=== PATIENT | female | born 1995 | race Caucasian/White ===

== ENCOUNTER 2017-04-29 17:58 | Emergency (ER) | payer BC, MEDICAID, SELFPAY ==
[2017-04-29 17:59] VITALS: BP 123/75; PULSE 78; RESP 18; TEMP 37.3; O2SAT 99; BMI 26.1
--- NOTE | 2017-04-29 18:25 | EKG12_ITS ---
Test Reason : OVERDOSE Blood Pressure : / mmHG Vent. Rate : 081 BPM Atrial Rate : 081 BPM P-R Int : 146 ms QRS Dur : 098 ms QT Int : 404 ms P-R-T Axes : 068 074 055 degrees QTc Int : 469 ms Normal sinus rhythm Normal ECG Confirmed by MICHAEL ARIAS ([id number]), food editor SRINATH MOORE ([id number]) on 05/03/2017 11:32:52 AM Referred By: TAL Confirmed By:MICHAEL ARIAS
--- NOTE | 2017-04-29 18:33 | ED.RN ---
NO OLD EKG'S IN MUSE
[2017-04-29] MEDS: Activated Charcoal 50 GM/240 ML BOT PO (18:36)
[2017-04-29 18:41] LABS: Bacteria 0 SEEN /hpf (None Seen); Mucous, Urine 0 SEEN /hpf (<or=2+); Red Blood Cells-Urine 0 SEEN /hpf (0-5)
[2017-04-29 18:50] LABS: Absolute Lymphocyte Count 1.61 X10^3/ul (0.83-4.51); Absolute Neutrophil Count 3.1 X10^3/uL (2.0-7.7); Basophil# 0.09 X10^3/uL; Basophil% 1.6 % (0-1); Eosinophil# 0.19 X10^3/uL; Eosinophils% 3.5 % (0-5); Hematocrit 37.8 % (37-47); Hemoglobin 12.2 g/dl (12.0-15.0); Lymphocyte # 1.61 X10^3/ul (4.0); Lymphocyte % 29.4 % (19-41); Mean Corp Hgb Conc 32.3 g/gl (32-36); Mean Corpuscular Hgb 29.4 pg (27.0-32.0); Mean Corpuscular Volume 91.1 fL (81-99); Mean Platelet Vol. 10.2 fl (6.2-12.0); Monocyte# 0.48 X10^3/uL; Monocyte% 8.8 % (0-10); Neutrophil # 3.09 X10^3/uL (2.7-7.7); Neutrophil % 56.5 % (47-70); Platelet Count 239 K/mm3 (150-450); RBC Distribution Width CV 12.4 % (11.6-14.6); RBC Distribution Width SD 41.3 fl (35.1-43.9); Red Blood Count 4.15 M/mm3 (4.2-5.4); White Blood Count 5.5 K/mm3 (4.4-11.0)
[2017-04-29 18:50] LABS: Color, Urine Yellow (Yellow); Glucose, Dipstick Normal (Normal); Ketone-Dipstick Negative (Negative); Leukocyte Esterase-Dipstick Negative /ul (Negative); Nitrite-Dipstick Negative (Negative); Occult Blood-Urine Negative /ul (Negative); Protein-Dipstick Negative (Negative); Urine Bilirubin Dipstick Negative (Negative); Urine Clarity Clear (Clear); Urine Urobilinogen Normal (Normal)
[2017-04-29 18:51] LABS: POSITIVE COUNT NO; POSITIVE DIFFERENTIAL NO; POSITIVE MORPHOLOGY NO
[2017-04-29 19:02] LABS: Squamous Epithelial Cells - UA 0-5 SEEN /hpf (5-10); White Blood Cells 0-5 SEEN /hpf (0-5)
[2017-04-29 19:20] LABS: Amphetamine Urine VISTA NEGATIVE (<1000 ng/mL); Barbiturate Urine VISTA NEGATIVE (< 200 ng/mL); Benzodiazepine Urine VISTA NEGATIVE (< 200 ng/mL); Cocaine Urine VISTA NEGATIVE (< 300 ng/mL); Ecstacy Urine VISTA NEGATIVE (< 500 ng/mL); Methadone Urine VISTA NEGATIVE (< 300 ng/mL); PCP Urine VISTA NEGATIVE (< 25 ng/mL); THC Urine VISTA NEGATIVE (< 50 ng/mL); Vista UDS pH Range 7
--- NOTE | 2017-04-29 19:21 | ED.RN ---
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
[2017-04-29 19:34] LABS: ALB/GLOB Ratio 1.1 RATIO (0.9-2.4); AST(SGOT) 14 U/L (15-37); Alanine Aminotransfer ALT/SGPT 20 U/L (12-78); Albumin, Serum 3.8 g/dL (3.4-5.0); Alkaline Phosphatase 111 U/L (45-117); Anion Gap 9 (5-15); BUN 16 mg/dL (7-18); BUN/Creat Ratio 18.3 RATIO (10-20); Calcium,Total 8.7 mg/dL (8.5-10.1); Chloride 110 mmol/L (98-107); Creatinine, Serum 0.87 mg/dL (0.55-1.02); EST Glomerular Filtration Rate 86 mL/min (>60); Est Glom Filt Rate - Afr Amer 103 mL/min (>60); Estimated Creatinine Clearance 87.59 ml/min; Globulin 3.5 g/dL (2.3-3.5); Glucose 97 mg/dL (70-110); Potassium 3.8 mmol/L (3.5-5.1); Protein, Total 7.3 g/dL (6.4-8.2); Sodium Level 143 mmol/L (136-145)
[2017-04-29 19:37] LABS: hCG Titer Quant., Serum < 1 mIU/mL (<9 non-preg)
--- NOTE | 2017-04-29 21:49 | ED.RN ---
PT REPORTED PROZAC 40MG X11, BUSPAR 10MG X42 AND MINIPRESS 1G X10 WERE TAKEN AT HOME.
[2017-04-29 22:32] LABS: Acetaminophen (Tylenol) Level < 2.0 ug/mL (10.0-30.0); Salicylate < 1.7 mg/dL (2.8-20.0)
--- NOTE | 2017-04-29 22:39 | ED.VISSUMM ---
- ER Visit Summary Date of Service: 04/29/17 Chief Complaint: Overdose History of Present Illness: The patient is a 21 F was having a verbal altercation with her , he went outside, she states that she overdosed on multiple pills one time while he was away, patient does not deny this being suicidal gesture. The pills that she took include fluoxetine 40 mg #11, buspirone 10 mg #42, and prazosin 1 mg #10. These are all her prescriptions. The only symptom that she has right now is that her head feels heavy, she is a little nauseated, and feels weak/heavy all over. No vomiting. She took all of these at one time about an hour prior to arrival. She denies any alcohol or other drug use. She is a smoker. Past medical history includes bipolar, PTSD, anxiety disorder, migraines, GERD. She has had bilateral tubal ligation, and states that for the past 3 weeks on review of systems, she has had lower abdominal discomfort, nausea, occasional vomiting, particular food cravings, mood swings, and breast tenderness and she thinks she is . Her last normal menstrual period was about 03/12/2017. She is usually regular. She also states that the blood test is always negative on me with regards to , and she is demanding an ultrasound, which is not available at this time. Physical Examination: Well-appearing in no acute distress. Poor eye contact. Normal but flat affect. Heart is regular without tachycardia. She has mild nonlateralizing pelvic tenderness without guarding or rebound or distention. Normal bowel sounds are present. Lungs are clear to auscultation throughout. Normal nonfocal neurologic exam. No signs of self-mutilation or injury. Alert and oriented ?3, no signs of SECURITY GUARDS DISPATCHER depression. Test Results: All labs are normal including toxicology, alcohol, salicylate, acetaminophen, and her beta hCG quantitative is 0. EKG is normal with normal intervals. Emergency Department Course and Treatment: She was immediately given activated charcoal 50 g orally. Patient was observed for about 5 hours and developed no symptoms. Her repeat vital signs are 105/62, heart rate 69, respirations 16, pulse ox 97 on room air and she is keenly alert and feeling well. I discussed with poison control, they agree that if she took that many pills it would be unusual for her not to have already developed any SECURITY GUARDS DISPATCHER depression at all. The patient is adamant that she took the pills. The only medication that potentially has not peaked yet is the Prozac, which peaks in 6-8 hours, however it has already been 6 hours since she took it and she has no SECURITY GUARDS DISPATCHER depression. Therefore I do not think she needs to be admitted to be cleared from this ingestion, she is medically cleared for psychiatric evaluation. Discussed with crisis and , who is comfortable with the plan. 0000 04/30/2017: Crisis got done seeing someone else, and was about to evaluate this patient. She is a symptomatically. However the states that he is tired of waiting and is taking her home and is refusing any other evaluation, he will have her follow-up with counseling center, and states he is taking full responsibility for her until then, and is demanding discharge papers. Pt states she does not want to kill herself, and wants to go home with her . Discussed w/ crisis, encouraged to follow up with this patient after the weekend. Treatment Plan: Outpatient counseling follow-up, home with Disposition: Home with Impression: Suicidal gesture Polypharmacy overdose Bipolar disorder ED Disposition - Plan for ED Patient: Disposition: Home or Assisted Living Chief Complaint: Overdose Instructions: ED Overdose Intentional, ED Depression Referrals: Counseling,Center [GROUP OF PHYSICIANS] - As soon as possible Additional Instructions: do not take your medications tomorrow, given the doses you took today.
--- NOTE | 2017-04-29 22:49 | ED.DCSUM_ITS ---
- ER Visit Summary Date of Service: 04/29/17 Chief Complaint: Overdose History of Present Illness: The patient is a 21 F was having a verbal altercation with her , he went outside, she states that she overdosed on multiple pills one time while he was away, patient does not deny this being suicidal gesture. The pills that she took include fluoxetine 40 mg #11, buspirone 10 mg #42, and prazosin 1 mg #10. These are all her prescriptions. The only symptom that she has right now is that her head feels heavy, she is a little nauseated, and feels weak/heavy all over. No vomiting. She took all of these at one time about an hour prior to arrival. She denies any alcohol or other drug use. She is a smoker. Past medical history includes bipolar, PTSD, anxiety disorder, migraines, GERD. She has had bilateral tubal ligation, and states that for the past 3 weeks on review of systems, she has had lower abdominal discomfort, nausea, occasional vomiting, particular food cravings, mood swings, and breast tenderness and she thinks she is . Her last normal menstrual period was about 03/12/2017. She is usually regular. She also states that the blood test is always negative on me with regards to , and she is demanding an ultrasound, which is not available at this time. Physical Examination: Well-appearing in no acute distress. Poor eye contact. Normal but flat affect. Heart is regular without tachycardia. She has mild nonlateralizing pelvic tenderness without guarding or rebound or distention. Normal bowel sounds are present. Lungs are clear to auscultation throughout. Normal nonfocal neurologic exam. No signs of self-mutilation or injury. Alert and oriented ?3, no signs of ARCADE GAMES MECHANIC depression. Test Results: All labs are normal including toxicology, alcohol, salicylate, acetaminophen, and her beta hCG quantitative is 0. EKG is normal with normal intervals. Emergency Department Course and Treatment: She was immediately given activated charcoal 50 g orally. Patient was observed for about 5 hours and developed no symptoms. Her repeat vital signs are 105/62, heart rate 69, respirations 16, pulse ox 97 on room air and she is keenly alert and feeling well. I discussed with poison control, they agree that if she took that many pills it would be unusual for her not to have already developed any ARCADE GAMES MECHANIC depression at all. The patient is adamant that she took the pills. The only medication that potentially has not peaked yet is the Prozac, which peaks in 6-8 hours, however it has already been 6 hours since she took it and she has no ARCADE GAMES MECHANIC depression. Therefore I do not think she needs to be admitted to be cleared from this ingestion, she is medically cleared for psychiatric evaluation. Discussed with crisis and , who is comfortable with the plan. 0000 04/30/2017: Crisis got done seeing someone else, and was about to evaluate this patient. She is a symptomatically. However the states that he is tired of waiting and is taking her home and is refusing any other evaluation, he will have her follow-up with counseling center, and states he is taking full responsibility for her until then, and is demanding discharge papers. Pt states she does not want to kill herself, and wants to go home with her . Discussed w/ crisis, encouraged to follow up with this patient after the weekend. Treatment Plan: Outpatient counseling follow-up, home with Disposition: Home with Impression: Suicidal gesture Polypharmacy overdose Bipolar disorder ED Disposition - Plan for ED Patient: Disposition: Home or Assisted Living Chief Complaint: Overdose Instructions: ED Overdose Intentional, ED Depression Referrals: Counseling,Center [GROUP OF PHYSICIANS] - As soon as possible Additional Instructions: do not take your medications tomorrow, given the doses you took today.
[2017-04-29 23:13] VITALS: BP 99/65; PULSE 83; RESP 18; O2SAT 96
--- NOTE | 2017-04-29 23:59 | ED.RN ---
PT COMES OUT OF PT ROOM DEMANDING D/C INSTRUCTIONS. WE HAVE BEEN HERE FOR ALMOST SIX HOURS, I AM HER POWER OF TRACTOR TECHNICIAN AND I AM TAKING HER HOME. I TAKE FULL RESPONSABILITY FOR HER AND WE ARE LEAVING IN FIVE MINUTES. I WANT TO LEAVE HERE WITH HER PAPERWORK NOW. DR. PARADA INFORMED OF WISH OF POA TO TAKE PT HOME. DR. PARADA SPOKE WITH HIM. PT AWAITING D/C INSTRUCTIONS. PER , SHE HAS BEEN OBSERVED LONG ENOUGH AND I AM TAKING HER HOME. I WILL CALL A FOR HER TO FOLLOW UP WITH TOMORROW. HER MEDICATIONS JUST NEED ADJUSTED, THAT IS ALL IT IS.
[2017-04-30 00:11] VITALS: BP 103/52; PULSE 99; RESP 16; O2SAT 99
== END 2017-04-30 00:12 | disposition home or self-care (01) ==
PROVIDERS: Emergency Provider Emergency Medicine; Family Provider Family Medicine; PCP Family Medicine
DX: T43.222A Poisoning by selective serotonin reuptake inhibitors, intentional self-harm, initial encounter (principal); T43.592A Poisoning by other antipsychotics and neuroleptics, intentional self-harm, initial encounter; T44.6X2A Poisoning by alpha-adrenoreceptor antagonists, intentional self-harm, initial encounter; Y92.9 Unspecified place or not applicable; R11.2 Nausea with vomiting, unspecified; R53.1 Weakness; R10.30 Lower abdominal pain, unspecified; N64.59 Other signs and symptoms in breast; F31.9 Bipolar disorder, unspecified; F43.10 Post-traumatic stress disorder, unspecified; F41.9 Anxiety disorder, unspecified; G43.909 Migraine, unspecified, not intractable, without status migrainosus; K21.9 Gastro-esophageal reflux disease without esophagitis; Z98.51 Tubal ligation status; Z79.82 Long term (current) use of aspirin; Z79.899 Other long term (current) drug therapy; Z72.0 Tobacco use
CPT/HCPCS: 36415; 80053; 80307; 80320; 80329 ×2; 81001; 84702; 85025; 93005; 99284; G0480

== ENCOUNTER → 2017-11-10 07:39 | Outpatient (CLI) | payer BC, MEDICAID, SELFPAY ==
[2017-11-10 09:36] LABS: Anion Gap 8 (5-15); BUN 17 mg/dL (7-18); BUN/Creat Ratio 21.7 RATIO (10-20); Calcium,Total 8.6 mg/dL (8.5-10.1); Chloride 107 mmol/L (98-107); Creatinine, Serum 0.78 mg/dL (0.55-1.02); EST Glomerular Filtration Rate 96 mL/min (>60); Est Glom Filt Rate - Afr Amer 117 mL/min (>60); Glucose 76 mg/dL (74-106); Potassium 3.4 mmol/L (3.5-5.1); Sodium Level 142 mmol/L (136-145); T4 Free Direct 1.27 ng/dL (0.76-1.46); Thyroid Stim Hormone (TSH) 1.38 uIU/mL (0.358-3.74)
[2017-11-10 09:38] LABS: Hemoglobin A1c 4.9 % (4.2-6.3)
== END ==
PROVIDERS: Family Provider Internal Medicine; PCP Internal Medicine; Visit Provider Internal Medicine
DX: R73.9 Hyperglycemia, unspecified (principal)
CPT/HCPCS: 36415; 80048; 83036; 84439; 84443

== ENCOUNTER → 2017-12-25 14:19 | Outpatient (CLI) | payer BC, MEDICAID, SELFPAY ==
--- NOTE | 2017-12-25 12:35 | RAD_ITS ---
STUDY: X-RAY - LUMBAR SPINE REASON FOR EXAM: Female, 22 years old. Lower back pain TECHNIQUE: 3 view(s) of the lumbar spine were obtained. COMPARISON: None FINDINGS: Normal lumbar lordosis. There is no substantial scoliosis. There is a normal alignment of the vertebrae. Normal vertebral bodies and endplates. Normal disc space heights. There are bilateral tubal ligation clips. Stool throughout the colon. Large amount of stool in the rectal vault can suggest constipation. RAD/Lumbar Spine 2 or 3 Views IMPRESSION: Normal x-ray examination of the lumbar spine. Constipation Electronically Signed: Antoine Gonzalez MD at 18:49 EDT , Service support ,
--- NOTE | 2017-12-25 14:19 | DT_ITS ---
This patient was seen during an EMR downtime December 25, 2017 - January 01, 2018. This patient may have a combination of paper and electronic documentation or all paper documentation. All documentation is viewable within the e-chart portion of [email or web address] for each patient visit.
== END ==
PROVIDERS: Family Provider Internal Medicine; PCP Internal Medicine; Visit Provider Anesthesiology Pain Medicine
DX: M54.5 Low back pain (principal)
CPT/HCPCS: 72100

== ENCOUNTER 2018-02-17 17:55 | Emergency (ER) | payer BC, MEDICAID, SELFPAY ==
[2018-02-17 17:57] VITALS: BP 125/70; PULSE 115; RESP 16; TEMP 37.3; BMI 25.0
--- NOTE | 2018-02-17 18:42 | ED.VIS.GEN ---
History of Present Illness Chief Complaint: General Illness Informant: Patient Narrative: 22-year-old female states she has a history of migraines and takes Topamax to prevent them, she has had a migraine off and on almost daily for the last month. She states that for the past 2 days she has been lightheaded especially when standing, better when sitting or lying down, decreased appetite with some nausea, eating makes that worse, feeling shaky despite drinking plenty of fluids, and fevers up to 100.7. She denies any earache, sore throat, runny nose or congestion, cough, abdominal pain, diarrhea, vomiting, rashes. She states that she has had no menstrual period for the past 6 months and is seen in endometriosis specialist for that even though she has never been diagnosed with endometriosis. She also has a history of PTSD, bipolar, anxiety, I could go on but states that she has not taken any medicines for any of this for the past year because she does not feel like she has needed them. - Past Medical History (1) PTSD (post-traumatic stress disorder) Status: Chronic (2) Bipolar disorder Status: Chronic (3) Anxiety disorder Status: Chronic (4) GERD (gastroesophageal reflux disease) Status: Chronic (5) IBS (irritable bowel syndrome) Status: Chronic (6) Seizures Status: Chronic (7) Stomach ulcer Status: Chronic (8) Asthma Status: Chronic (9) Deafness in left ear Status: Chronic (10) Migraines Status: Chronic Past Medical History - Allergies and Home Meds Allergies/Adverse Reactions: Allergies adhesive tape Allergy (Severe, Verified 02/17/18 18:53) Rash latex Allergy (Severe, Verified 02/17/18 18:53) Rash cephalexin [From Keflex] Allergy (Verified 02/17/18 18:53) Hives clindamycin Allergy (Verified 02/17/18 18:53) Anaphylaxis dicyclomine [From Bentyl] Allergy (Verified 02/17/18 18:53) Itching meloxicam [From Mobic] Allergy (Verified 02/17/18 18:53) Chest tightness nifedipine [From Procardia] Allergy (Verified 02/17/18 18:53) Angioedema Penicillins Allergy (Verified 02/17/18 18:53) Anaphylaxis progesterone Allergy (Verified 02/17/18 18:53) Hives -cream form only Sulfa (Sulfonamide Antibiotics) Allergy (Verified 02/17/18 18:53) Hives terbutaline [From Brethine] Allergy (Verified 02/17/18 18:53) Angioedema ondansetron [From Zofran (as hydrochloride)] Adverse Reaction (Verified 02/17/18 18:53) Other PT STATES IT MAKES ME CONSTIPATED Primary Care Physician: Vega Gandhi MD [STAFF PHYSICIAN] - Smoking Status: Current every day smoker Drugs: None Review of Systems All systems negative except as indicated General: Reports: Fever, Malaise Gastrointestinal: Reports: Nausea Neurological: Reports: Headache, - - orthostatic lightheadedness / near-syncope. Denies: Weakness, Numbness Psych: Reports: Depression, Anxiety. Denies: Suicidal thoughts Physical Exam Vital Signs/Narrative: Vital Signs Temp Pulse Resp BP 02/17/18 17:57 99.1 F 115 H 16 125/70 H Inital Vital Signs reviewed: Yes General: Well nourished, Well developed, - - well-appearing, nad Head: Normocephalic, Atraumatic Eyes: Perrl, EOMI ENT: Moist mucous membranes, No rhinorrhea, TM's clear. Negative for: Nasal congestion, Sinus tenderness Neck: Supple, Nontender, No lymphadenopathy, - - from. no meningismus. Cardiovascular: Regular rate, Regular rhythm, No murmurs Respiratory: No distress, CTA bilaterally, Chest nontender Abdomen: Soft, Nontender, Nondistended, Normal bowel sounds Back: Nontender, Normal Inspection. Negative for: CVA tenderness Extremities: Nontender, No edema Skin: Normal color, No rash Neurological: Alert, Oriented x3, Cranial nerves II-XII grossly intact, Normal Strength, Normal Sensation Psychological: - - frustrated Diagnostic/Tx/Re-eval Laboratory Results 02/17/18 02/17/18 Range/Units 18:52 18:52 WBC 7.5 (4.4-11.0) K/mm3 RBC 4.57 (4.2-5.4) M/mm3 Hgb 13.1 (12.0-15.0) g/dl Hct 38.8 (37-47) % MCV 84.9 (81-99) fL MCH 28.7 (27.0-32.0) pg MCHC 33.8 (32-36) g/gl RDW 11.9 (11.6-14.6) % RDW Differential 36.1 (35.1-43.9) fl Plt Count 295 (150-450) K/mm3 MPV 10.6 (6.2-12.0) fl Immature Gran % (Auto) 0.300 (0.0-0.9) % Neut % (Auto) 55.4 (47-70) % Lymph % (Auto) 31.3 (19-41) % [place] % (Auto) 7.5 (0-10) % Eos % (Auto) 4.3 (0-5) % Baso % (Auto) 1.2 H (0-1) % Absolute Neuts (auto) 4.2 (2.0-7.7) X10^3/uL Absolute Lymphs (auto) 2.34 (0.83-4.51) X10^3/ul Total Counted Not Reportable Sodium 140 (136-145) mmol/L Potassium 3.8 (3.5-5.1) mmol/L Chloride 108 H (98-107) mmol/L Carbon Dioxide 27.0 (21.0-32.0) mmol/L Anion Gap 5 (5-15) BUN 13 (7-18) mg/dL Creatinine 0.86 (0.55-1.02) mg/dL Estim Creat Clear Calc 87.85 ml/min Est GFR (MDRD) Af Amer 105 (>60) mL/min Est GFR (MDRD) Non-Af 87 (>60) mL/min BUN/Creatinine Ratio 15.2 (10-20) RATIO Glucose 94 (74-106) mg/dL Calcium 9.4 (8.5-10.1) mg/dL - Medical Decision Making Patient is orthostatic when she stands, she was given a liter of fluid and this helped significantly. Her labs are unremarkable. After being given Toradol and Reglan her headache is much better. Her nausea is better as well. Her symptoms are vague, may be consistent with a virus. Advised to follow-up, stay well-hydrated, given a prescription for Reglan, she is comfortable with that plan. ED Disposition - Plan for ED Patient: Disposition: Home or Assisted Living Chief Complaint: General Illness Diagnosis: Orthostatic lightheadedness, Migraine headache, Fever and chills Prescriptions: Metoclopramide [Reglan] 10 mg PO Q6H PRN #12 tab PRN Reason: nausea/headache Referrals: Vega Gandhi MD [STAFF PHYSICIAN] - 3-5 Days if not improving
[2018-02-17] MEDS: Metoclopramide 10 MG/2 ML Vial IV (18:52)
[2018-02-17] MEDS: Ketorolac 30 MG/ML Syringe IV (18:52)
[2018-02-17 18:56] VITALS: BP 113/58; BP 122/70; BP 97/75; PULSE 108
[2018-02-17 19:05] LABS: Absolute Lymphocyte Count 2.34 X10^3/ul (0.83-4.51); Absolute Neutrophil Count 4.2 X10^3/uL (2.0-7.7); Basophil# 0.09 X10^3/uL; Basophil% 1.2 % (0-1); Eosinophil# 0.32 X10^3/uL; Eosinophils% 4.3 % (0-5); Hematocrit 38.8 % (37-47); Hemoglobin 13.1 g/dl (12.0-15.0); Lymphocyte # 2.34 X10^3/ul (4.0); Lymphocyte % 31.3 % (19-41); Mean Corp Hgb Conc 33.8 g/gl (32-36); Mean Corpuscular Hgb 28.7 pg (27.0-32.0); Mean Corpuscular Volume 84.9 fL (81-99); Mean Platelet Vol. 10.6 fl (6.2-12.0); Monocyte# 0.56 X10^3/uL; Monocyte% 7.5 % (0-10); Neutrophil # 4.15 X10^3/uL (2.7-7.7); Neutrophil % 55.4 % (47-70); Platelet Count 295 K/mm3 (150-450); RBC Distribution Width CV 11.9 % (11.6-14.6); RBC Distribution Width SD 36.1 fl (35.1-43.9); Red Blood Count 4.57 M/mm3 (4.2-5.4); White Blood Count 7.5 K/mm3 (4.4-11.0)
[2018-02-17 19:07] LABS: POSITIVE COUNT NO; POSITIVE DIFFERENTIAL NO; POSITIVE MORPHOLOGY NO
[2018-02-17 19:15] LABS: Anion Gap 5 (5-15); BUN 13 mg/dL (7-18); BUN/Creat Ratio 15.2 RATIO (10-20); Calcium,Total 9.4 mg/dL (8.5-10.1); Chloride 108 mmol/L (98-107); Creatinine, Serum 0.86 mg/dL (0.55-1.02); EST Glomerular Filtration Rate 87 mL/min (>60); Est Glom Filt Rate - Afr Amer 105 mL/min (>60); Estimated Creatinine Clearance 87.85 ml/min; Glucose 94 mg/dL (74-106); Potassium 3.8 mmol/L (3.5-5.1); Sodium Level 140 mmol/L (136-145)
[2018-02-17 20:01] VITALS: BP 118/66; PULSE 74; RESP 16; O2SAT 100
[2018-02-17] MEDS: 0.9% Normal Saline 1,000 ML 999 ML IV (20:02)
--- NOTE | 2018-02-17 21:15 | ED.VISSUMM ---
ED Disposition - Plan for ED Patient: Disposition: Home or Assisted Living Chief Complaint: General Illness Diagnosis: Orthostatic lightheadedness, Migraine headache, Fever and chills Instructions: ED Hypotension Orthostatic, ED Headache Migraine Prescriptions: Metoclopramide [Reglan] 10 mg PO Q6H PRN #12 tab PRN Reason: nausea/headache Referrals: Vega Gandhi MD [STAFF PHYSICIAN] - 3-5 Days if not improving
[2018-02-17 21:19] VITALS: BP 120/55; PULSE 75; RESP 16; O2SAT 99
== END 2018-02-17 21:20 | disposition home or self-care (01) ==
PROVIDERS: Emergency Provider Emergency Medicine; Family Provider Family Medicine; PCP Family Medicine
DX: I95.1 Orthostatic hypotension (principal); G43.909 Migraine, unspecified, not intractable, without status migrainosus; R50.9 Fever, unspecified; F43.10 Post-traumatic stress disorder, unspecified; F31.9 Bipolar disorder, unspecified; F41.9 Anxiety disorder, unspecified; K21.9 Gastro-esophageal reflux disease without esophagitis; K58.9 Irritable bowel syndrome, unspecified; G40.909 Epilepsy, unspecified, not intractable, without status epilepticus; J45.909 Unspecified asthma, uncomplicated; H91.92 Unspecified hearing loss, left ear; Z87.19 Personal history of other diseases of the digestive system; Z79.82 Long term (current) use of aspirin; Z79.899 Other long term (current) drug therapy; F17.200 Nicotine dependence, unspecified, uncomplicated
CPT/HCPCS: 80048; 85025; 96361; 96374; 96375; 99284; J7030

== ENCOUNTER 2018-03-11 00:02 | Emergency (ER) | payer BC, MEDICAID, SELFPAY ==
[2018-03-11 00:03] VITALS: BP 126/85; PULSE 99; RESP 18; TEMP 36.6; O2SAT 100; BMI 25.9
--- NOTE | 2018-03-11 00:17 | ED.VISSUMM ---
- ER Visit Summary Date of Service: 03/11/18 Chief Complaint: Headache History of Present Illness: The patient is a 22 F history of chronic migraines. Also has a history of bipolar disorder, PTSD, depression, anxiety and prior suicide attempts. Patient states that she gets frequent migraine headaches. She has had a migraine headache today and it was intermittent similar to prior headache she has had. Associated with sono and photophobia. Denies any fever. Denies any head trauma. Denies any sinus congestion. Denies any neurological symptoms. Light and sound both make the headache worse. She denies any neck pain. She is on no blood thinners. States that she has had both nausea and vomiting associated with headache. Physical Examination: Young female sitting in a darkened room. Vital signs are stable afebrile. H EENT exam photophobia. Pupils round reactive light. No facial droop. No signs of trauma to her head or face. Neck nontender. No meningismus. Able to touch her chin to chest. Lungs clear to auscultation bilaterally. Heart regular rhythm no murmur. Abdomen soft nontender. Normal bowel sounds no peritoneal signs. She is moving all 4 extremities. They are neurovascularly intact. Neurologic exam normal. NIH is 0. She is awake alert. Normal speech. Fingertip to nose within normal limits. 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 Normal dorsi plantarflexion. No motor or sensory deficits. Test Results: None Emergency Department Course and Treatment: Patient treated with IV fluids, Phenergan, Benadryl and Toradol. Repeat exam at 01 10 AM patient started to feel a little better. Still has the headache. Requested something else for pain. She will also be given IV Nubain Treatment Plan: [] Disposition: Discharge Impression: Acute cephalgia with a history of migraines History of PTSD, depression and bipolar disorder. This note was generated with [employer] dictation software. It may contain incorrect words, spelling, and punctuation that were not noted in review of the chart prior to signing ED Disposition - Plan for ED Patient: Chief Complaint: Headache Referrals: Kennedy Gipson MD [Primary Care Provider] -
[2018-03-11] MEDS: DiphenhydrAMINE 50 MG/ML Syringe 25 MG IV (00:28)
[2018-03-11] MEDS: proMETHazine 25 MG/ML Syringe 12.5 MG IV (00:28)
[2018-03-11] MEDS: Ketorolac 30 MG/ML Syringe IV (00:28)
[2018-03-11] MEDS: 0.9% Normal Saline 1,000 ML 1000 ML IV (00:28)
--- NOTE | 2018-03-11 01:13 | ED.DEP ---
ED Disposition - Plan for ED Patient: Disposition: Home or Assisted Living Chief Complaint: Headache Instructions: ED Headache Migraine Referrals: Kennedy Gipson MD [Primary Care Provider] - 3-5 Days if not improving Additional Instructions: Plenty of fluids and rest. Tylenol and Motrin for pain. Follow-up with primary care physician or return if feeling worse.
[2018-03-11] MEDS: Nalbuphine 10 MG/ML Ampul IV (01:20)
[2018-03-11 02:01] VITALS: BP 110/60; PULSE 74; RESP 16; O2SAT 100
--- NOTE | 2018-03-11 02:01 | ED.RN ---
THIS NURSE REVIEWED D/C INSTRUCTIONS WITH PT. PT VERBALIZED UNDERSTANDING OF INSTRUCTIONS. IV D/C. IV CATHETER INTACT. PT TOLERATED WELL. PT DENIES FURTHER NEEDS OR QUESTIONS AT THIS TIME.
== END 2018-03-11 02:02 | disposition home or self-care (01) ==
PROVIDERS: Emergency Provider Emergency Medicine; Family Provider Family Medicine; PCP Family Medicine
DX: G43.909 Migraine, unspecified, not intractable, without status migrainosus (principal); F43.10 Post-traumatic stress disorder, unspecified; F32.9 Major depressive disorder, single episode, unspecified; F31.9 Bipolar disorder, unspecified; F41.9 Anxiety disorder, unspecified; Z91.5 Personal history of self-harm; Z79.82 Long term (current) use of aspirin; Z79.899 Other long term (current) drug therapy; Z72.0 Tobacco use
CPT/HCPCS: 96361; 96374; 96375; 99284; J7030; A4216

== ENCOUNTER 2018-04-03 22:40 | Emergency (ER) | payer MEDICAID, SELFPAY ==
[2018-04-03 22:40] VITALS: BP 130/69; PULSE 106; RESP 16; TEMP 36.6; O2SAT 97; BMI 21.9
--- NOTE | 2018-04-03 23:15 | RAD_ITS ---
STUDY: X-RAY - RIGHT KNEE REASON FOR EXAM: Female, 22 years old. Right knee pain TECHNIQUE: 3 view(s) of the knee. COMPARISON: None. FINDINGS: There are postsurgical changes of the distal femur and proximal tibia related to ACL graft. Normal proximal tibiofibular articulation. There is no demonstrated fracture. Normal medial femorotibial compartment. Normal lateral femorotibial compartment. Normal patellofemoral articulation. There is no demonstrated joint effusion. The soft tissue structures are unremarkable. RAD/Knee 3 Views IMPRESSION: Postsurgical changes. No acute fracture or dislocation. Electronically Signed: Tu Anglin MD at 23:34 EDT , Service support ,
[2018-04-03] MEDS: Naproxen 500 MG Tablet PO (23:32)
--- NOTE | 2018-04-03 23:46 | ED.DCSUM_ITS ---
- ER Visit Summary Date of Service: 04/03/18 Chief Complaint: Right knee pain History of Present Illness: The patient is a 22 F who has right knee pain. 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 She has pain diffusely, however it mostly she points to the medial and posterior side. She states that she had ACL surgery last summer. This was done by Dr. Brambila. She took nothing for this at home. Pain is worse with walking. Physical Examination: Vital signs reviewed. Right knee exam reveals tenderness in the posterior and medial side. No significant swelling. Anterior and posterior drawer tests are negative. She does have painful range of motion in any direction. Test Results: X-rays reveal postsurgical changes Emergency Department Course and Treatment: He was given ice and naproxen here. She will go home with naproxen. She will try to follow-up with her previous orthopedic surgeon. Treatment Plan: [] Disposition: Discharge Impression: Right knee pain This note was generated with [employer] dictation software. It may contain incorrect words, spelling, and punctuation that were not noted in review of the chart prior to signing ED Disposition - Plan for ED Patient: Chief Complaint: Lower Extremity Injury Referrals: Kennedy Gipson MD [Primary Care Provider] -
--- NOTE | 2018-04-03 23:46 | ED.DEP ---
ED Disposition - Plan for ED Patient: Disposition: Home or Assisted Living Chief Complaint: Lower Extremity Injury Instructions: ED Knee Pain [facility] Prescriptions: Naproxen [Naprosyn] 500 mg PO BID PRN #20 tab Referrals: Kennedy Gipson MD [Primary Care Provider] - Aden Alaniz DO [STAFF PHYSICIAN] -
[2018-04-04 00:06] VITALS: BP 112/74; PULSE 69; RESP 16; O2SAT 99
--- NOTE | 2018-04-04 00:06 | ED.RN ---
THIS NURSE REVIEWED D/C INSTRUCTIONS WITH PT AND VISITOR. PT VERBALIZED UNDERSTANDING OF INSTRUCTIONS. PT DENIES FURTHER NEEDS OR QUESTIONS AT THIS TIME. P
== END 2018-04-04 00:07 | disposition home or self-care (01) ==
LOC: ED 23:59
PROVIDERS: Emergency Provider Emergency Medicine; Family Provider Family Medicine; PCP Family Medicine
DX: M25.561 Pain in right knee (principal); X50.1XXA Overexertion from prolonged static or awkward postures, initial encounter; Y93.9 Activity, unspecified; Y92.9 Unspecified place or not applicable; K21.9 Gastro-esophageal reflux disease without esophagitis; F43.10 Post-traumatic stress disorder, unspecified; G43.909 Migraine, unspecified, not intractable, without status migrainosus; G40.909 Epilepsy, unspecified, not intractable, without status epilepticus; F32.9 Major depressive disorder, single episode, unspecified; F41.9 Anxiety disorder, unspecified; Z79.82 Long term (current) use of aspirin; Z79.899 Other long term (current) drug therapy; Z72.0 Tobacco use
CPT/HCPCS: 73562; 99282

== ENCOUNTER 2018-04-27 08:55 | Outpatient (RCR) | payer MEDICAID, SELFPAY ==
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
== END 2018-04-27 17:00 | disposition home or self-care (01) ==
LOC: PT 08:55
PROVIDERS: Family Provider Family Medicine; PCP Family Medicine; Visit Provider Nurse Practitioner Family
DX: M54.5 Low back pain (principal)
CPT/HCPCS: 97110; 97162

== ENCOUNTER 2018-05-07 11:26 | Emergency (ER) | payer MEDICAID, SELFPAY ==
[2018-05-07 11:28] VITALS: BP 118/63; PULSE 130; RESP 16; TEMP 37.5; O2SAT 99; BMI 24.9
[2018-05-07 11:45] VITALS: BP 126/81; PULSE 117; RESP 25; O2SAT 99
--- NOTE | 2018-05-07 11:45 | EKG12_ITS ---
Test Reason : GEN ILL Blood Pressure : / mmHG Vent. Rate : 104 BPM Atrial Rate : 104 BPM P-R Int : 134 ms QRS Dur : 092 ms QT Int : 340 ms P-R-T Axes : 073 089 046 degrees QTc Int : 447 ms Sinus tachycardia Incomplete right bundle branch block Borderline ECG Confirmed by NIGEL CRUZ, WILVER ([id number]), sports editor SRINATH MOORE ([id number]) on 05/10/2018 10:34:04 AM Referred By: Francine Carbajal Confirmed By:WILVER MANNING MD
[2018-05-07 11:51] VITALS: O2SAT 99
--- NOTE | 2018-05-07 11:57 | ED.DCSUM_ITS ---
- ER Visit Summary Date of Service: 05/07/18 Chief Complaint: Dizziness, weakness History of Present Illness: The patient is a 22 F who presents with the above symptoms. It started yesterday. She states that she felt dizzy and lightheaded. She also feels weak. She had mild nausea but was able to keep fo od down. She states that she went to the bathroom and had a syncopal episode. She remembers waking up on the floor. She denies any pain except in her stomach when she walks. She states she does have shortness of breath when she talks. She denies any chest pain. She has not had any diarrhea. No urinary symptoms. Denies fevers. She does not have a headache. Physical Examination: Vital signs reviewed. HEENT exam unremarkable. Heart is tachycardic and regular rhythm without murmurs. Lungs are clear to auscultation. Abdomen is soft and nontender. Extremities reveal no edema. Skin exam normal. Neurologic exam normal. Test Results: Laboratory studies are normal except for a sodium of 133 and a d- dimer of 1.38 Emergency Department Course and Treatment: Patient was hydrated with IV fluids. I did obtain a CTA of the chest due to the elevated d-dimer. She was only a mild amount of atelectasis. Patient was mildly improved. I do not feel that she needs admitted for any of the symptoms. She likely does need to increase hydration at home. This does not appear to be vertiginous in nature. She needs to follow-up with her primary care physician. Treatment Plan: [] Disposition: Discharge Impression: Dizziness This note was generated with [employer] dictation software. It may contain incorrect words, spelling, and punctuation that were not noted in review of the chart prior to signing ED Disposition - Plan for ED Patient: Chief Complaint: General Illness Referrals: Kennedy Gipson MD [Primary Care Provider] -
[2018-05-07] MEDS: 0.9% Normal Saline 1,000 ML 1000 ML IV (12:06)
[2018-05-07 12:17] LABS: Absolute Lymphocyte Count 1.07 X10^3/ul (0.83-4.51); Absolute Neutrophil Count 7.1 X10^3/uL (2.0-7.7); Basophil# 0.03 X10^3/uL; Basophil% 0.3 % (0-1); Hematocrit 42.2 % (37-47); Lymphocyte # 1.07 X10^3/ul (4.0); Lymphocyte % 11.4 % (19-41); Mean Corp Hgb Conc 33.2 g/gl (32-36); Mean Corpuscular Hgb 28.5 pg (27.0-32.0); Mean Corpuscular Volume 85.9 fL (81-99); Mean Platelet Vol. 11.4 fl (6.2-12.0); Monocyte# 1.21 X10^3/uL; Monocyte% 12.8 % (0-10); Neutrophil # 7.09 X10^3/uL (2.7-7.7); Neutrophil % 75.3 % (47-70); Platelet Count 180 K/mm3 (150-450); RBC Distribution Width CV 12.6 % (11.6-14.6); RBC Distribution Width SD 38.9 fl (35.1-43.9); Red Blood Count 4.91 M/mm3 (4.2-5.4); White Blood Count 9.4 K/mm3 (4.4-11.0)
[2018-05-07 12:19] LABS: Differential Indicated SCAN CRITERIA MET; POSITIVE COUNT NO; POSITIVE DIFFERENTIAL NO; POSITIVE MORPHOLOGY YES
[2018-05-07 12:28] LABS: D-Dimer Quantitative (DVT/PE) 1.38 FEU/ug/m (0.27-0.49)
--- NOTE | 2018-05-07 12:30 | ED.RN ---
NEIGHBOR BROUGHT PT TO ED. LEFT HER #. RAVI EVANS [phone]. PT GAVE PERMISSION TO RELEASE MED INFORMATION TO THIS INDIVIDUAL. Marcus BELTRAN RN [id number]
--- NOTE | 2018-05-07 12:33 | CT_ITS ---
STUDY: CTA CHEST REASON FOR EXAM: Female, 22 years old. Shortness of breath. Dizziness and nausea. Lower extremity swelling. RADIATION DOSAGE (If Supplied By Facility): CTDIvol = ( 10.64 ) mGy, DLP = ( 331.90 ) mGycm TECHNIQUE: The examination was performed with the intravenous administration of 75mL ml of Isovue 370 contrast material. Post-processing of the angiographic images was performed, with multiplanar reformation and 3D reconstruction. Individualized dose optimization techniques were used for this CT. COMPARISON: None. FINDINGS: Normal enhancement of the main pulmonary artery and right and left pulmonary arteries. Normal enhancement of the bilateral peripheral pulmonary arteries. There is no demonstrated pulmonary embolism. Normal thoracic aorta and visualized great vessels. There is no demonstrated aortic dissection. Normal heart and pericardium. Normal mediastinum. Normal hilar regions. Normal visualized trachea and bronchi. The lungs are well expanded. Minimal increased markings in the lingular segment of the left upper lobe suggestive of lingular atelectasis. Normal pleura. Normal chest wall structures. Normal osseous structures. Normal visualized upper abdomen. CT/CTA Chest W/WO Contrast IMPRESSION: Minimal increased markings in the lingular segment of the left upper lobe suggests underlying atelectasis. Electronically Signed: Robson Pathak MD at 13:16 EDT Tel [phone], Service support ,
[2018-05-07 12:36] LABS: Anion Gap 11 (5-15); BUN 16 mg/dL (7-18); BUN/Creat Ratio 14.8 RATIO (10-20); Calcium,Total 8.5 mg/dL (8.5-10.1); Chloride 100 mmol/L (98-107); Creatinine, Serum 1.08 mg/dL (0.55-1.02); EST Glomerular Filtration Rate 66 mL/min (>60); Est Glom Filt Rate - Afr Amer 80 mL/min (>60); Estimated Creatinine Clearance 69.96 ml/min; Glucose 83 mg/dL (74-106); Potassium 3.7 mmol/L (3.5-5.1); Sodium Level 133 mmol/L (136-145)
--- NOTE | 2018-05-07 13:26 | ED.DEP ---
ED Disposition - Plan for ED Patient: Disposition: Home or Assisted Living Chief Complaint: General Illness Instructions: ED Dizziness UKO Referrals: Kennedy Gipson MD [Primary Care Provider] -
[2018-05-07 13:48] VITALS: BP 133/81; PULSE 113; RESP 20; O2SAT 99
== END 2018-05-07 13:48 | disposition home or self-care (01) ==
PROVIDERS: Emergency Provider Emergency Medicine; Family Provider Family Medicine; PCP Family Medicine
DX: R42 Dizziness and giddiness (principal); R79.89 Other specified abnormal findings of blood chemistry; J98.11 Atelectasis; R55 Syncope and collapse; R06.00 Dyspnea, unspecified; R10.9 Unspecified abdominal pain; F90.9 Attention-deficit hyperactivity disorder, unspecified type; F31.9 Bipolar disorder, unspecified; Z79.899 Other long term (current) drug therapy; Z72.0 Tobacco use
CPT/HCPCS: 71275; 80048; 84484; 85025; 85379; 93005; 96360; 99285; J7030; Q9967

== ENCOUNTER 2018-05-08 08:54 | Emergency (ER) | payer MEDICAID, SELFPAY ==
[2018-05-08 08:56] VITALS: BP 121/70; PULSE 93; RESP 24; O2SAT 99
[2018-05-08 08:58] VITALS: BP 109/59; PULSE 123; RESP 14; TEMP 38.2; O2SAT 100; BMI 24.0
--- NOTE | 2018-05-08 09:15 | EKG12_ITS ---
Test Reason : DIZZINESS Blood Pressure : / mmHG Vent. Rate : 098 BPM Atrial Rate : 098 BPM P-R Int : 136 ms QRS Dur : 094 ms QT Int : 340 ms P-R-T Axes : 072 090 042 degrees QTc Int : 434 ms Normal sinus rhythm Rightward axis Borderline ECG Confirmed by ALEX CRUZ, MABEL ([id number]), television news video editor SRINATH MOORE ([id number]) on 05/10/2018 9:56:35 AM Referred By: KAHLIL Confirmed By:MABEL JOHNSON MD
[2018-05-08 09:16] VITALS: O2SAT 99
--- NOTE | 2018-05-08 09:21 | ED.VISSUMM ---
- ER Visit Summary Date of Service: 05/08/18 Chief Complaint: [] Fever generalized weakness History of Present Illness: The patient is a 22 F [] she has had a sense of weakness and fatigue for the last 3 days, she was seen yesterday in the emergency department after being fatigued and having what sounds like a possible syncopal episode, she had seen in the emergency department, she indicates when seen in the [place] emergency department really nothing was done for her she was dissatisfied with the care that was provided to her, so then she went to the [facility] emergency department where she had a workup that was generally unremarkable, she was told to follow-up with her primary care physicians, she indicates she called the office and because she had a fever today she was told to come to the emergency department, She believes she did have a flu swab at 1 of the hospitals that was negative, when I further questioned her it appears that she when seen at [facility] had an extensive workup including a CTA of her chest that was negative and lab work She denies a runny nose no sore throat she complains of the fever generalized body aches and headache, normal bowel bladder habits no urinary symptoms denies a hip history of anything to suggest a source for fever. She is able to eat Physical Examination: [] Pressure is 100.8 she is awake and alert sitting in a brightly lit room her pupils are equal round reactive her neck is very supple no adenopathy no meningismus the throat is clear the lungs are clear the heart tones are normal for the heart rate of 120 the abdomen is soft nontender upper lower extremities unremarkable no skin rash the back is unremarkable she has no Kernig's or Brudzinski's full range of motion of all major joints without tenderness neurologically normal awake alert answering questions appropriately Test Results: [] Emergency Department Course and Treatment: [] Illness for the last few days ED workup is as above when I reviewed the CT report there was some mention of lingula atelectasis no PE or anything else acute at this time screening labs are obtained IV fluids antipyretics Patient studies are generally all unremarkable see those reports, the lab work, UA hCG, chest x-ray are negative, on reevaluation her vital signs are normal she is feeling much better she has been able to take p.o. fluids, her viral screens and strep throat screens were negative for all see those reports, I have explained all the above to her given her improvement I believe it is safe to discharge her home to follow-up with her physicians of explained her the exact etiology for the febrile illness is unclear she should return for change in symptoms, with regards to the generalized weakness that predated the fever she should also help with her doctors as an outpatient return for change in symptoms again she is improved agrees this plan and will follow up Treatment Plan: [] Disposition: [] Home stable Impression: [] febrile illness etiology unclear, generalized weakness etiology unclear This note was generated with [employer] dictation software. It may contain incorrect words, spelling, and punctuation that were not noted in review of the chart prior to signing ED Disposition - Plan for ED Patient: Chief Complaint: Dizziness Referrals: Kennedy Gipson MD [Primary Care Provider] -
--- NOTE | 2018-05-08 09:24 | ED.DCSUM_ITS ---
- ER Visit Summary Date of Service: 05/08/18 Chief Complaint: [] Fever generalized weakness History of Present Illness: The patient is a 22 F [] she has had a sense of weakness and fatigue for the last 3 days, she was seen yesterday in the emergency department after being fatigued and having what sounds like a possible syncopal episode, she had seen in the emergency department, she indicates when seen in the [place] emergency department really nothing was done for her she was dissatisfied with the care that was provided to her, so then she went to the [facility] emergency department where she had a workup that was generally unremarkable, she was told to follow-up with her primary care physicians, she indicates she called the office and because she had a fever today she was told to come to the emergency department, She believes she did have a flu swab at 1 of the hospitals that was negative, when I further questioned her it appears that she when seen at [facility] had an extensive workup including a CTA of her chest that was negative and lab work She denies a runny nose no sore throat she complains of the fever generalized body aches and headache, normal bowel bladder habits no urinary symptoms denies a hip history of anything to suggest a source for fever. She is able to eat Physical Examination: [] Pressure is 100.8 she is awake and alert sitting in a brightly lit room her pupils are equal round reactive her neck is very supple no adenopathy no meningismus the throat is clear the lungs are clear the heart tones are normal for the heart rate of 120 the abdomen is soft nontender upper lower extremities unremarkable no skin rash the back is unremarkable she has no Kernig's or Brudzinski's full range of motion of all major joints without tenderness neurologically normal awake alert answering questions appropriately Test Results: [] Emergency Department Course and Treatment: [] Illness for the last few days ED workup is as above when I reviewed the CT report there was some mention of lingula atelectasis no PE or anything else acute at this time screening labs are obtained IV fluids antipyretics Patient studies are generally all unremarkable see those reports, the lab work, UA hCG, chest x-ray are negative, on reevaluation her vital signs are normal she is feeling much better she has been able to take p.o. fluids, her viral screens and strep throat screens were negative for all see those reports, I have explained all the above to her given her improvement I believe it is safe to discharge her home to follow-up with her physicians of explained her the exact etiology for the febrile illness is unclear she should return for change in symptoms, with regards to the generalized weakness that predated the fever she should also help with her doctors as an outpatient return for change in symptoms again she is improved agrees this plan and will follow up Treatment Plan: [] Disposition: [] Home stable Impression: [] febrile illness etiology unclear, generalized weakness etiology unclear This note was generated with [employer] dictation software. It may contain incorrect words, spelling, and punctuation that were not noted in review of the chart prior to signing ED Disposition - Plan for ED Patient: Chief Complaint: Dizziness Referrals: Kennedy Gipson MD [Primary Care Provider] -
--- NOTE | 2018-05-08 09:30 | RAD_ITS ---
STUDY: X-RAY CHEST REASON FOR EXAM: Female, 22 years old. Fever and shortness of breath TECHNIQUE: Single AP portable view of the chest. COMPARISON: None. FINDINGS: The lungs are clear and expanded. There is no demonstrated pleural abnormality. Normal size heart. Normal mediastinum and mir. Normal visualized pulmonary arteries. Normal visualized aortic arch and descending thoracic aorta. Normal visualized thoracic spine. Normal visualized ribs, clavicles, and shoulders. There is no demonstrated abnormality of the visualized soft tissue structures of the upper abdomen. RAD/Chest 1 View (Portable) IMPRESSION: Normal x-ray examination of the chest. Electronically Signed: Mauricio Esteban DO at 9:52 EDT Tel , Service support ,
[2018-05-08] MEDS: 0.9% Normal Saline 1,000 ML 1000 ML IV ×2 (10:25→11:26)
[2018-05-08] MEDS: Acetaminophen 500 MG Tablet 1000 MG PO (10:25)
[2018-05-08 10:33] LABS: Mucous, Urine 0 SEEN /hpf (<or=2+)
[2018-05-08 10:40] LABS: Absolute Lymphocyte Count 0.83 X10^3/ul (0.83-4.51); Absolute Neutrophil Count 3.4 X10^3/uL (2.0-7.7); Basophil# 0.02 X10^3/uL; Basophil% 0.4 % (0-1); Hematocrit 35.5 % (37-47); Hemoglobin 11.7 g/dl (12.0-15.0); Lymphocyte # 0.83 X10^3/ul (4.0); Lymphocyte % 16.7 % (19-41); Mean Corpuscular Volume 84.9 fL (81-99); Mean Platelet Vol. 11.2 fl (6.2-12.0); Monocyte# 0.67 X10^3/uL; Monocyte% 13.5 % (0-10); Neutrophil # 3.42 X10^3/uL (2.7-7.7); Platelet Count 148 K/mm3 (150-450); RBC Distribution Width CV 12.8 % (11.6-14.6); RBC Distribution Width SD 39.9 fl (35.1-43.9); Red Blood Count 4.18 M/mm3 (4.2-5.4)
[2018-05-08 10:41] LABS: Color, Urine Yellow (Yellow); Glucose, Dipstick Normal (Normal); Leukocyte Esterase-Dipstick 25 /ul (Negative); Nitrite-Dipstick Negative (Negative); Occult Blood-Urine 50 /ul (Negative); Protein-Dipstick 100 mg/dl (Negative); Urine Bilirubin Dipstick Negative (Negative); Urine Clarity Sl. Cloudy (Clear); Urine Urobilinogen 1 mg/dl (Normal)
[2018-05-08 10:42] LABS: POSITIVE COUNT NO; POSITIVE DIFFERENTIAL NO; POSITIVE MORPHOLOGY NO
[2018-05-08 10:42] LABS: Ketone-Dipstick 150 mg/dl (Negative)
[2018-05-08 10:48] LABS: Bacteria 2+ /hpf (None Seen); Red Blood Cells-Urine 0-5 SEEN /hpf (0-5); Squamous Epithelial Cells - UA 0-5 SEEN /hpf (5-10); White Blood Cells 0-5 SEEN /hpf (0-5)
[2018-05-08 10:58] LABS: Anion Gap 9 (5-15); BUN 9 mg/dL (7-18); BUN/Creat Ratio 11.4 RATIO (10-20); Calcium,Total 8.1 mg/dL (8.5-10.1); Chloride 105 mmol/L (98-107); Creatinine, Serum 0.79 mg/dL (0.55-1.02); EST Glomerular Filtration Rate 95 mL/min (>60); Est Glom Filt Rate - Afr Amer 115 mL/min (>60); Estimated Creatinine Clearance 95.64 ml/min; Glucose 98 mg/dL (74-106); Potassium 3.7 mmol/L (3.5-5.1); Sodium Level 136 mmol/L (136-145)
[2018-05-08 11:04] LABS: Lactic Acid 0.6 mmol/L (0.4-2.0)
[2018-05-08 11:25] VITALS: BP 112/63; PULSE 90; RESP 21; TEMP 37.5; O2SAT 98
--- NOTE | 2018-05-08 12:20 | ED.DEP ---
ED Disposition - Plan for ED Patient: Chief Complaint: Dizziness Instructions: ED Dizziness UKO, ED Fever Unconf Cause Referrals: Kennedy Gipson MD [Primary Care Provider] -
[2018-05-08 12:21] LABS: Pregnancy, Serum, hCG Quali. NEGATIVE Negative (0-9 Nonpreg)
[2018-05-08] MEDS: proMETHazine 25 MG/ML Syringe 12.5 MG IV (12:39)
[2018-05-08 12:57] VITALS: BP 110/78; PULSE 80; RESP 16; TEMP 37.2; O2SAT 99
== END 2018-05-08 13:00 | disposition home or self-care (01) ==
LOC: ED 09:44
PROVIDERS: Emergency Provider Emergency Medicine; Family Provider Family Medicine; PCP Family Medicine
DX: R50.9 Fever, unspecified (principal); R53.1 Weakness; R51 Headache; R53.83 Other fatigue
CPT/HCPCS: 71045; 80048; 81001; 83605; 84484; 84703; 85025; 87040; 87086; 87088; 87804; 87807; 87880; 93005; 96361; 96374; 99284; J7030; A4216

== ENCOUNTER 2018-06-25 07:03 | Day surgery (SDC) | payer MEDICAID, SELFPAY ==
[2018-06-25] VITALS (7 sets, daily range): BP systolic 98–108; BP diastolic 59–72; PULSE 64–72; RESP 16–18; TEMP 36.2–36.9; O2SAT 100; BMI 24.0
--- NOTE | 2018-06-25 09:07 | RAD_ITS ---
STUDY: X-RAY - SACROILIAC JOINTS REASON FOR EXAM: Female, 23 years old. Left SI joint injection. TECHNIQUE: A single intraoperative view of the left sacroiliac joint were obtained. COMPARISON: None. FINDINGS: There is a needle in the left sacroiliac joint. There is evidence of contrast in the region of the joint. Normal visualized iliac bones. Normal-appearing sacrum. Please refer to the operative report for further details. RAD/Fluoro Guided Needle Placement IMPRESSION: Injection of the left sacroiliac joint in the OR. Electronically Signed: Serge Wood DO at 16:30 EST Tel [phone], Service support ,
[2018-06-25] MEDS: MethylPREDNISolone Acetate 80 MG/ML Vial (09:16)
[2018-06-25] MEDS: Bupivacaine 0.25% 30 ML Vial (09:16)
--- NOTE | 2018-06-25 10:15 | PCM.OPRPT ---
Problem List (1) Sacroiliitis, not elsewhere classified Status: Chronic (2) Sacrococcygeal disorders, not elsewhere classified Status: Chronic Report of Operation Date of Procedure: 06/25/18 Pre-Operative Diagnosis: Sacroiliitis, sacroiliac joint dysfunction Post-Operative Diagnosis: Sacroiliitis, sacroiliac joint dysfunction Surgery/Procedure Performed:: Left sacroiliac joint steroid injection under fluoroscopic guidance Description of Surgical Findings:: PROCEDURE: Left-sided sacroiliac joint steroid injection under fluoroscopic guidance PREOPERATIVE DIAGNOSIS: Sacroiliitis, sacroiliac joint dysfunction POSTOPERATIVE DIAGNOSIS: Sacroiliitis, sacroiliac joint dysfunction ANESTHESIA: MAC COMPLICATIONS: None BLOOD LOSS: Minimal PROCEDURE IN DETAIL: History and physical today was reviewed. Risks and benefits of the procedure were explained. The patient understood, agreed to our procedure, and informed consent was obtained. IV inserted per routine protocol. The patient was taken to the operating room, placed in a prone position with a pillow positioned underneath the abdomen. The left side of her lower back and buttock area was prepped and draped in a sterile fashion using iodine x3. Under fluoroscopy guidance, on AP view, the SI joint was visualized skin and subcutaneous tissue and size approximately 3 cc of 1% lidocaine using a 25-gauge regular needle under direct visualization fluoroscopy at approximately 15 degrees angle using a 22-gauge 3-1/2 inch spinal needle the needle passed through the skin the tip of the needle's maneuver and directed towards the inferior one third of the posterior SI joint once the tip of the needle was at the vicinity of the joint after negative aspiration for blood or CSF a total of 1 cc of contrast were injected to confirm correct placement of the needle as well as cephalocaudad spread confirmation was obtained on AP as well as oblique view after repeated negative aspiration and confirmation a total of 4 cc of preservative-free 0.25% Marcaine with 40 mg of Depo-Medrol were injected in and around the SI joint. The needles were then removed intact. The patient experienced no signs or symptoms intrathecal, intravascular injection. The patient experienced no paraesthesia. The procedure was completed without any apparent difficult, any complication. The patient appeared to tolerate well. ASSESSMENT AND PLAN: This is a 23-year-old Female with sacroiliitis, SI joint dysfunction status post left-sided sacroiliac joint steroid injection under fluoroscopic guidance. The patient will continue her current medications. The patient will follow in approximately 2 weeks for possible repeat of the procedure if indicated.
--- OUTSIDE RECORDS SUMMARY | 2018-08-18 05:01 | XMS RPT_ITS ---
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 REPOSITORY [facility] Imaging Services [address] [place] [id number] Fluoro Guided Needle Placement MR#: [id number] Acct: [id number] Name: FERNANDO ROUSSEAU Rep #: [id number] : 1995 F 23 From: Serge Wood DO PCP: Kennedy Gipson MD Status: [facility] Study: Fluoro Guided Needle Placement Date of Exam: 06/25/18 Exam# [id number] Ordering Dr: Steve Chinchilla MD STUDY: X-RAY - SACROILIAC JOINTS REASON FOR EXAM: Female, 23 years old. Left SI joint injection. TECHNIQUE: A single intraoperative view of the left sacroiliac joint were obtained. COMPARISON: None. FINDINGS: There is a needle in the left sacroiliac joint. There is evidence of contrast in the region of the joint. Normal visualized iliac bones. Normal-appearing sacrum. Please refer to the operative report for further details. RAD/Fluoro Guided Needle Placement IMPRESSION: Injection of the left sacroiliac joint in the OR. Electronically Signed: Serge Wood DO at 16:30 EST Tel [phone], Service support , CC: Kennedy Gipson MD; Steve Chinchilla Fuel Cell Assembler: Signed PROGRESS Observed: 05/22/2018 Status: COMPLETED Source: [place] 2:34 PM [facility] [place] REPOSITORY HNO ID: [id number] Author: Nelly Archuleta) Shavon Service: (none) Author Type: Nurse Practitioner Type: Progress Notes Filed: 05/22/2018 2:59 PM Note Text: Subjective The history is provided by the patient. Fernando Rousseau is a 23 year old female who presents with cough and chest congestion, runny nose, sneezing for the past 2 days. She has history of chronic bronchitis and allergic rhinitis. She has been using inhaler at home and gena seltzer cold and dayquil which is not helping. She has history of asthma as well. ROS BP 110/80 Pulse 82 Temp 36.6 ?C (97.8 ?F) (Tympanic) Resp 18 Wt 65.9 kg (145 lb 3.2 oz) SpO2 98% BMI 24.92 kg/m? PAST MEDICAL HISTORY Diagnosis Date - Abnormal Pap smear of cervix - ADHD (attention deficit hyperactivity disorder) - Anemia - Anxiety [facility] - Asthma - Bipolar disorder (HCC) - Chlamydia 2013 - Complication of anesthesia migraines after anesthesia - Convulsions (HCC) - GERD (gastroesophageal reflux disease) - Migraines - Polysubstance abuse ([facility]) History. 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 - Tobacco use PAST SURGICAL HISTORY Procedure Laterality Date - COLONOSCOP W/ OR W/O BRSH SPEC 06/12/2017 Colonoscopy [facility] - normal - Bx negative - EGD W/O OR W/BRUSH/WASH 06/12/2017 EGD - duodenitis, gastritis, superfical gastric ulcers, - EXTRACTION ERUPTED TOOTH/EXR Right - KNEE SCOPE,AID ANT CRUCIATE REPAIR Right 01/27/2017 Right knee arthroscopic ACL reconstruction with hamstring autograft and medial menisectomy - TUBAL LIGATION HX ALLERGIES Clindamycin; Dicyclomine; Flagyl [Metronidazole Hcl]; Keflex [Cephalexin]; Mobic [Meloxicam]; Penicillin; Procardia [Nifedipine]; Progesterone Aqueous; Sulfa (Sulfonamide Antibiotics); Terbutaline; Tessalon [Benzonatate] MEDICATIONS polyethylene glycol 3350 (MIRALAX, GLYCOLAX) 17 gram/dose powder Take 17 g by mouth once daily. This is one (1) capful in 8oz of liquid each day. Omeprazole 40 mg capsule Take 1 capsule by mouth once daily. meclizine (ANTIVERT) 25 mg tab Take 1 tablet by mouth every 6 hours as needed (dizziness). promethazine (PHENERGAN) 25 mg tablet Take 1 tablet by mouth every 6 hours as needed. fluticasone (FLOVENT) 110 mcg/actuation inhaler Inhale 2 Puffs as instructed twice daily. albuterol HFA (PROAIR HFA) 90 mcg/actuation inhaler Inhale 2 Puffs as instructed every 4 hours as needed. vit-iron fumarate-fa () 28 mg iron- 800 mcg tab Take 1 tablet by mouth once daily. topiramate (TOPAMAX) 50 mg tablet Take 1 tablet by mouth twice daily. etodolac (LODINE) 300 mg capsule Take 1 capsule by mouth every 8 hours. Norethin Chinmay-Eth Estrad-FE (LOESTRIN FE 1.5/30) 1.5 mg-30 mcg (21)/75 mg (7) tablet Take 1 tablet by mouth once daily. traMADol (ULTRAM) 50 mg tablet gabapentin (NEURONTIN) 100 mg capsule Take 100 mg by mouth twice daily. cyclobenzaprine (FLEXERIL) 10 mg tablet Take 1 tablet by mouth three times daily as needed. predniSONE (DELTASONE) 20 mg tablet Take 2 tablets by mouth once daily. guaiFENesin (MUCINEX) 600 mg 12 hr tablet Take 1 tablet by mouth twice daily for 10 days. FAMILY HISTORY Problem Relation Age of Onset - Adopted: Yes - Breast Cancer Mother - Seizures Mother - Thyroid Mother - other (Fibromylagia) Mother - Seizures Paternal Grandmother - other (Lung Cancer) Paternal Grandmother - other (Coagulopathy) Paternal Grandmother - Cervical Cancer Maternal Grandmother - Thyroid Maternal Grandmother - Seizures Maternal Grandmother - Breast Cancer Maternal Grandmother - Seizures Paternal Grandfather - other (Pancreatic Cancer) Paternal Grandfather - other (Coagulopathy) Paternal Grandfather - other (Leukemia) Paternal Aunt - Seizures Father - Heart Father 39 [place] - other (Coagulopathy) Paternal Aunt - Seizures Maternal Grandfather - other (autism, fragile x) Sister - other (Down Syndrome) Brother Social History Substance Use Topics - Smoking status: Current Every Day Smoker Packs/day: 1.50 Types: Cigarettes Start date: 07/28/2006 - Smokeless tobacco: Current User Types: Chew - Alcohol use 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 HENT: Right Ear: Tympanic membrane, external ear and ear canal normal. Left Ear: Tympanic membrane and ear canal normal. Nose: Nose normal. No rhinorrhea. Mouth/Throat: Uvula is midline, oropharynx is clear and moist and mucous membranes are normal. No posterior oropharyngeal edema or posterior oropharyngeal erythema. Eyes: Conjunctivae are normal. Neck: Neck supple. Cardiovascular: Normal rate, regular rhythm and normal heart sounds. Pulmonary/Chest: Effort normal. No tachypnea. No respiratory distress. She has no decreased breath sounds. She has wheezes (few, scattered). She has no rales. Frequent cough noted Lymphadenopathy: She has no cervical adenopathy. Neurological: She is alert. Skin: Skin is warm and dry. Nursing note and vitals reviewed. ASSESSMENT/PLAN: 1. Acute bronchitis, unspecified organism - ICD9: 466.0, ICD10: J20.9 - PREDNISONE 20 MG TABLET - GUAIFENESIN ER 600 MG TABLET, EXTENDED RELEASE 12 HR - continue regular medications as prescribed. - Follow-up with your PCP in 3-5 days if symptoms have not improved or sooner if symptoms worsen - Discussed red flags and need for immediate medical evaluation if any occur. - Discussed supportive care treatment with fluids, rest and analgesia. - Discussed expected course of illness Nelly Sands APRN.CNP CNOV Observed: 05/22/2018 Status: COMPLETED Source: [place] 2:30 PM [facility] REPOSITORY Office Visit (WSTR) FERNANDO ROUSSEAU ([id number]) 1995 F Date Time Provider Department 05/22/18 2:30 PM NELLY SANDS ([facility]) [facility] During your visit today, we recorded the following information about you: Temperature Pulse Respiration Blood pressure 97.8 degrees 82/minute 18/minute 110/80 Weight 65.9 kg Nelly Sands APRN.CNP 05/22/2018 2:59 PM Signed Subjective The history is provided by the patient. Fernando Rousseau is a 23 year old female who presents with cough and chest congestion, runny nose, sneezing for the past 2 days. She has history of chronic bronchitis and allergic rhinitis. She has been using inhaler at home and gena seltzer cold and dayquil which is not helping. She has history of asthma as well. ROS BP 110/80 Pulse 82 Temp 36.6 ?C (97.8 ?F) (Tympanic) Resp 18 Wt 65.9 kg (145 lb 3.2 oz) SpO2 98% BMI 24.92 kg/m? PAST MEDICAL HISTORY Diagnosis Date - Abnormal Pap smear of cervix - ADHD (attention deficit hyperactivity disorder) - Anemia - Anxiety [facility] - Asthma - Bipolar disorder (HCC) - Chlamydia 2013 - Complication of anesthesia migraines after anesthesia - Convulsions ([facility]) - GERD (gastroesophageal reflux disease) - Migraines - Polysubstance abuse ([facility]) History. 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 - Tobacco use PAST SURGICAL HISTORY Procedure Laterality Date - COLONOSCOP W/ OR W/O [facility] SPEC 06/12/2017 Colonoscopy [facility] - normal - Bx negative - EGD W/O OR W/BRUSH/WASH 06/12/2017 EGD - duodenitis, gastritis, superfical gastric ulcers, - EXTRACTION ERUPTED TOOTH/EXR Right - KNEE SCOPE,AID ANT CRUCIATE REPAIR Right 01/27/2017 Right knee arthroscopic ACL reconstruction with hamstring autograft and medial menisectomy - TUBAL LIGATION HX ALLERGIES Clindamycin; Dicyclomine; Flagyl [Metronidazole Hcl]; Keflex [Cephalexin]; Mobic [Meloxicam]; Penicillin; Procardia [Nifedipine]; Progesterone Aqueous; Sulfa (Sulfonamide Antibiotics); Terbutaline; Tessalon [Benzonatate] MEDICATIONS polyethylene glycol 3350 (MIRALAX, GLYCOLAX) 17 gram/dose powder Take 17 g by mouth once daily. This is one (1) capful in 8oz of liquid each day. Omeprazole 40 mg capsule Take 1 capsule by mouth once daily. meclizine (ANTIVERT) 25 mg tab Take 1 tablet by mouth every 6 hours as needed (dizziness). promethazine (PHENERGAN) 25 mg tablet Take 1 tablet by mouth every 6 hours as needed. fluticasone (FLOVENT) 110 mcg/actuation inhaler Inhale 2 Puffs as instructed twice daily. albuterol HFA (PROAIR HFA) 90 mcg/actuation inhaler Inhale 2 Puffs as instructed every 4 hours as needed. vit-iron fumarate-fa () 28 mg iron- 800 mcg tab Take 1 tablet by mouth once daily. topiramate (TOPAMAX) 50 mg tablet Take 1 tablet by mouth twice daily. etodolac (LODINE) 300 mg capsule Take 1 capsule by mouth every 8 hours. Norethin Chinmay-Eth Estrad-FE (LOESTRIN FE 1.5/30) 1.5 mg-30 mcg (21)/75 mg (7) tablet Take 1 tablet by mouth once daily. traMADol (ULTRAM) 50 mg tablet gabapentin (NEURONTIN) 100 mg capsule Take 100 mg by mouth twice daily. cyclobenzaprine (FLEXERIL) 10 mg tablet Take 1 tablet by mouth three times daily as needed. predniSONE (DELTASONE) 20 mg tablet Take 2 tablets by mouth once daily. guaiFENesin (MUCINEX) 600 mg 12 hr tablet Take 1 tablet by mouth twice daily for 10 days. FAMILY HISTORY Problem Relation Age of Onset - Adopted: Yes - Breast Cancer Mother - Seizures Mother - Thyroid Mother - other (Fibromylagia) Mother - Seizures Paternal Grandmother - other (Lung Cancer) Paternal Grandmother - other (Coagulopathy) Paternal Grandmother - Cervical Cancer Maternal Grandmother - Thyroid Maternal Grandmother - Seizures Maternal Grandmother - Breast Cancer Maternal Grandmother - Seizures Paternal Grandfather - other (Pancreatic Cancer) Paternal Grandfather - other (Coagulopathy) Paternal Grandfather - other (Leukemia) Paternal Aunt - Seizures Father - Heart Father 39 [place] - other (Coagulopathy) Paternal Aunt - Seizures Maternal Grandfather - other (autism, fragile x) Sister - other (Down Syndrome) Brother Social History Substance Use Topics - Smoking status: Current Every Day Smoker Packs/day: 1.50 Types: Cigarettes Start date: 07/28/2006 - Smokeless tobacco: Current User Types: Chew - Alcohol use 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 HENT: Right Ear: Tympanic membrane, external ear and ear canal normal. Left Ear: Tympanic membrane and ear canal normal. Nose: Nose normal. No rhinorrhea. Mouth/Throat: Uvula is midline, oropharynx is clear and moist and mucous membranes are normal. No posterior oropharyngeal edema or posterior oropharyngeal erythema. Eyes: Conjunctivae are normal. Neck: Neck supple. Cardiovascular: Normal rate, regular rhythm and normal heart sounds. Pulmonary/Chest: Effort normal. No tachypnea. No respiratory distress. She has no decreased breath sounds. She has wheezes (few, scattered). She has no rales. Frequent cough noted Lymphadenopathy: She has no cervical adenopathy. Neurological: She is alert. Skin: Skin is warm and dry. Nursing note and vitals reviewed. ASSESSMENT/PLAN: 1. Acute bronchitis, unspecified organism - ICD9: 466.0, ICD10: J20.9 - PREDNISONE 20 MG TABLET - GUAIFENESIN ER 600 MG TABLET, EXTENDED RELEASE 12 HR - continue regular medications as prescribed. - Follow-up with your PCP in 3-5 days if symptoms have not improved or sooner if symptoms worsen - Discussed red flags and need for immediate medical evaluation if any occur. - Discussed supportive care treatment with fluids, rest and analgesia. - Discussed expected course of illness JONATHAN Boogie APRN.CNP 05/22/2018 2:41 PM Signed ASSESSMENT/PLAN: 1. Acute bronchitis, unspecified organism - ICD9: 466.0, ICD10: J20.9 - PREDNISONE 20 MG TABLET - GUAIFENESIN ER 600 MG TABLET, EXTENDED RELEASE 12 HR - Follow-up with your PCP in 3-5 days if symptoms have not improved or sooner if symptoms worsen - Discussed red flags and need for immediate medical evaluation if any occur. - Discussed supportive care treatment with fluids, rest and analgesia. - Discussed expected course of illness Nelly Sands APRN.CNP ACUTE BRONCHITIS: You have acute bronchitis. This means the airway passages in your lungs are inflamed. Bronchitis may be caused by viruses or bacteria. Inhaling cigarette smoke will always make it worse. Exposure to irritating chemicals or second hand smoke as well as allergies can contribute to bronchitis. Repeat episodes of bronchitis may cause lifelong lung problems. Acute bronchitis is usually treated with rest, fluids, cough medicine, and possibly antibiotics or inhaled medicine to open up the small airways. It is very important that you avoid smoke and drink increased amounts of fluids. A cool air vaporizer can help thin bronchial secretions. This makes it easier to cough and clear your chest. If you are a cigarette smoker, consider using nicotine gum or skin patches to help you withdraw. Recovery from bronchitis is often slow, but you should start feeling better after 2-3 days of treatment. Please call your doctor or return here if you have any of the following symptoms: - Increased fever, chills, or chest pain. - Severe shortness of breath or bloody sputum. - Do not improve after 3 days of proper treatment. Referring Provider: SELF [[id number]] Allergies As of Date: 05/22/2018 Noted Allergy Reaction CLINDAMYCIN 10/22/2015 4 - Hives 12 - Shortness of Breath DICYCLOMINE 05/25/2017 9 - Itching FLAGYL (METRONIDAZOLE HCL) 11/01/2017 9 - Itching KEFLEX (CEPHALEXIN) 10/13/2016 10 - Anaphylaxis MOBIC (MELOXICAM) 12/20/2017 14 - Other: See Comments Comments: Chest pain PENICILLIN 10/22/2015 4 - Hives Comments: Per pt anything in the penicillin family she is allergic to PROCARDIA (NIFEDIPINE) 10/22/2015 4 - Hives Comments: Hives and seizures per pt PROGESTERONE AQUEOUS 10/13/2016 2 - Rash Comments: Progesterone cream only SULFA (SULFONAMIDE ANTIBIOTICS) 01/02/2017 4 - Hives TERBUTALINE 10/22/2015 4 - Hives Comments: Per pt has hives and seizures TESSALON (BENZONATATE) 01/01/2018 2 - Rash Date Reviewed: 05/22/2018 Reviewed by: Nelly ([facility]) Shavon - Fully Assessed Reason for Visit: chest congestion, cougth, phlegm, sinus pain and pressure [Other] Cmt: x 2 days Primary Visit Diagnosis:Acute bronchitis, unspecified organism [J20.9] Order(s):predniSONE (DELTASONE) 20 mg tabletTake 2 tablets by mouth once daily.Disp: 4 tabletRfl: 0 guaiFENesin (MUCINEX) 600 mg 12 hr tabletTake 1 tablet by mouth twice daily for 10 days.Disp: 20 tabletRfl: 0 Prescriptions as of 05/22/2018 Sig: POLYETHYLENE GLYCOL 3350 17 G* Take 17 g by mouth once daily* OMEPRAZOLE 40 MG CAPSULE,KAREY* Take 1 capsule by mouth once * MECLIZINE 25 MG TABLET Take 1 tablet by mouth every * PROMETHAZINE 25 MG TABLET Take 1 tablet by mouth every * FLUTICASONE 110 MCG/ACTUATION* Inhale 2 Puffs as instructed * ALBUTEROL SULFATE HFA 90 MCG/* Inhale 2 Puffs as instructed * VIT NO.95-FERROUS FU* Take 1 tablet by mouth once d* TOPIRAMATE 50 MG TABLET Take 1 tablet by mouth twice * ETODOLAC 300 MG CAPSULE Take 1 capsule by mouth every* NORETHINDRONE 1.5 MG-ETHINYL * Take 1 tablet by mouth once d* TRAMADOL 50 MG TABLET GABAPENTIN 100 MG CAPSULE Take 100 mg by mouth twice da* CYCLOBENZAPRINE 10 MG TABLET Take 1 tablet by mouth three * PREDNISONE 20 MG TABLET Take 2 tablets by mouth once * GUAIFENESIN ER 600 MG TABLET,* Take 1 tablet by mouth twice * Problem List As Of Date 05/22/2018 Noted Resolved Seizures (HCC) [R56.9] INVALID FOR*12/27/2016 Previous delivery, antepartum [O09.219] INVALID FOR*12/27/2016 , high-risk [O09.90] INVALID FOR*12/27/2016 Bipolar 1 disorder (HCC) [F31.9] INVALID FOR* Recurrent loss (CODE) [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 with care elsewhere, antepar*INVALID FOR*12/27/2016 More... History of labor, current [O0*INVALID FOR*12/27/2016 More... History of labor [Z87.51] INVALID FOR*12/27/2016 More... UTI (urinary tract infection) in , ant*INVALID FOR*12/27/2016 More... History of depression [Z87.59, Z86.5*INVALID FOR*12/27/2016 History of depression [Z86.59] INVALID FOR* More... Custody issue [Z65.3] INVALID FOR*12/27/2016 More... Tobacco use during , antepartum [O99.3*INVALID FOR*12/27/2016 More... History of drug abuse [Z87.898] INVALID FOR* More... History of seizures [Z87.898] INVALID FOR*01/25/2017 More... H/O pre-eclampsia in prior , currently*INVALID FOR*12/27/2016 Family history of defects [Z82.79] INVALID FOR*01/25/2017 More... Family history of genetic disease [Z84.89] INVALID FOR*01/25/2017 More... Short interval between pregnancies affecting pr*INVALID FOR*12/27/2016 Poor historian [Z78.9] INVALID FOR* More... PTSD (post-traumatic stress disorder) [F43.10] Polysubstance abuse [F19.10] More... Migraines [G43.909] Asthma [J45.909] Anxiety [F41.9] Seizure (HCC) [R56.9] INVALID FOR* More... GERD (gastroesophageal reflux disease) [K21.9] INVALID FOR* Other instructions from your clinician: ASSESSMENT/PLAN: 1. Acute bronchitis, unspecified organism - ICD9: 466.0, ICD10: J20.9 - PREDNISONE 20 MG TABLET - GUAIFENESIN ER 600 MG TABLET, EXTENDED RELEASE 12 HR - Follow-up with your PCP in 3-5 days if symptoms have not improved or sooner if symptoms worsen - Discussed red flags and need for immediate medical evaluation if any occur. - Discussed supportive care treatment with fluids, rest and analgesia. - Discussed expected course of illness Nelly Sands APRN.PICTURE ENLARGER ACUTE BRONCHITIS: You have acute bronchitis. This means the airway passages in your lungs are inflamed. Bronchitis may be caused by viruses or bacteria. Inhaling cigarette smoke will always make it worse. Exposure to irritating chemicals or second hand smoke as well as allergies can contribute to bronchitis. Repeat episodes of bronchitis may cause lifelong lung problems. Acute bronchitis is usually treated with rest, fluids, cough medicine, and possibly antibiotics or inhaled medicine to open up the small airways. It is very important that you avoid smoke and drink increased amounts of fluids. A cool air vaporizer can help thin bronchial secretions. This makes it easier to cough and clear your chest. If you are a cigarette smoker, consider using nicotine gum or skin patches to help you withdraw. Recovery from bronchitis is often slow, but you should start feeling better after 2-3 days of treatment. Please call your doctor or return here if you have any of the following symptoms: - Increased fever, chills, or chest pain. - Severe shortness of breath or bloody sputum. - Do not improve after 3 days of proper treatment. Prescriptions ordered this encounter Disp Refills Start End PREDNISONE 20 MG TABLET 4 ta* 0 05/22/2018 Route: ORAL Sig: Take 2 tablets by mouth once daily. GUAIFENESIN ER 600 MG TABLET, EXTEND* 20 t* 0 05/22/2018 06/01/2018 Route: ORAL Sig: Take 1 tablet by mouth twice daily for 10 days. Medications Discontinued During This Encounter predniSONE (DELTASONE) 20 mg tablet 10 t* 0 11/01/2017 05/22/2018 Route: ORAL Sig: Take 1 tablet by mouth twice daily for 5 days. Patient not taking: Reported on 11/06/2017 Disc: Reason for discontinue is not on file. Encounter Status:Closed by NELYL SANDS on 05/22/18 CNOV Observed: 05/15/2018 Status: COMPLETED Source: [place] 8:20 AM [facility] [place] REPOSITORY Office Visit ([facility]ST[facility]) FERNANDO ROUSSEAU ([id number]) 1995 F Date Time Provider Department 05/15/18 8:20 AM CHIQUITA HARP ([facility]) [facility] During your visit today, we recorded the following information about you: Pulse Blood pressure Weight Height 106/minute 113/71 64.4 kg 1.626 m Chiquita Harp RN ROBOT OPERATOR.PICTURE ENLARGER 05/15/2018 9:11 AM Signed Fernando Rousseau a 22 year old female who is self referred for the evaluation of intestinal issues. Her PCP is Dr. Gipson. I saw her in consultation on 05/25/17 for complaints of abdominal pain, nausea and vomiting as well as altered bowel habits. That note has been reviewed. The patient was seen by Dr. Cochran for upper endoscopy and colonoscopy, at [facility], on 06/12/17. The procedure report has been reviewed. EGD: duodenitis, gastritis, gastric ulcer - non bleeding, esophagitis Colonoscopy: poor prep - normal colon ? Pathology: Mild gastritis. Esophagus- gastric mucosa with chronic inflammation. Intestinal metaplasia not identified. Colon- no pathologic diagnosis. The patient was last seen on 06/30/17 as follow up for procedures noted below. That note has been reviewed. She was prescribed omeprazole and carafate and asked to follow up in 8 weeks. We haven't heard from her since that encounter. Presenting complaint: The patient presents today stating I am struggling to use the restroom, then there are times where I can't stay out of the bathroom. Her last bowel movement was around 05/10. That bowel movement was soft formed. Recently nausea, vomited, high fever. She saw Antionette Posadas on 05/08 for this. She has been inpatient with fever - blood cultures taken. She tells me that she at that time she hadn't had a bowel movement in 2 weeks. She has functional bowel disorder. She isn't on a fiber supplement. The patient tells me that she is taking Pepcid daily, but usually has to take additional ones. She tells me that she had been taking that along with the omeprazole, last year. I'll send in a prescription for the PPI. REVIEW OF SYSTEMS: GENERAL: No unplanned weight loss. Positive for fever of unknown origin. GI: The patient states that her appetite has been adequate. She does get hungry. There has been some nausea, vomited once. She denies dysphagia and denies odynophagia. There has been indigestion with heartburn. There has not been regurgitation. Bowel habits have been irregular. There has been diarrhea. There has been constipation. The patient denies rectal bleeding. There has not been melena. No new or worsening abdominal pain. PSYCH: Positive for anxiety, bipolar disorder and depression. Seeing psychiatrist. All other reviewed and negative other than HPI. PAST MEDICAL HISTORY Diagnosis Date - Abnormal Pap smear of cervix - ADHD (attention deficit hyperactivity disorder) - Anemia - Anxiety [facility] - Asthma - Bipolar disorder ([facility]) - Chlamydia 2013 - Complication of anesthesia migraines after anesthesia - Convulsions ([facility]) - GERD (gastroesophageal reflux disease) - Migraines - Polysubstance abuse ([facility]) History. 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 - Tobacco use PAST SURGICAL HISTORY Procedure Laterality Date - COLONOSCOP W/ OR W/O [facility] SPEC 06/12/2017 Colonoscopy [facility] - normal - Bx negative - EGD W/O OR W/BRUSH/WASH 06/12/2017 EGD - duodenitis, gastritis, superfical gastric ulcers, - EXTRACTION ERUPTED TOOTH/EXR Right - KNEE SCOPE,AID ANT CRUCIATE REPAIR Right 01/27/2017 Right knee arthroscopic ACL reconstruction with hamstring autograft and medial menisectomy - TUBAL LIGATION HX FAMILY HISTORY Problem Relation Age of Onset - Adopted: Yes - Breast Cancer Mother - Seizures Mother - Thyroid Mother - other (Fibromylagia) Mother - Seizures Paternal Grandmother - other (Lung Cancer) Paternal Grandmother - other (Coagulopathy) Paternal Grandmother - Cervical Cancer Maternal Grandmother - Thyroid Maternal Grandmother - Seizures Maternal Grandmother - Breast Cancer Maternal Grandmother - Seizures Paternal Grandfather - other (Pancreatic Cancer) Paternal Grandfather - other (Coagulopathy) Paternal Grandfather - other (Leukemia) Paternal Aunt - Seizures Father - Heart Father 39 [place] - other (Coagulopathy) Paternal Aunt - Seizures Maternal Grandfather - other (autism, fragile x) Sister - other (Down Syndrome) Brother Current Outpatient Prescriptions: lurasidone (LATUDA) 20 mg tablet Take 1 tablet by mouth once daily. Disp: Rfl: meclizine (ANTIVERT) 25 mg tab Take 1 tablet by mouth every 6 hours as needed (dizziness). Disp: 30 tablet Rfl: 1 promethazine (PHENERGAN) 25 mg tablet Take 1 tablet by mouth every 6 hours as needed. Disp: 28 tablet Rfl: 0 fluticasone (FLOVENT) 110 mcg/actuation inhaler Inhale 2 Puffs as instructed twice daily. Disp: 1 Inhaler Rfl: 2 albuterol HFA (PROAIR HFA) 90 mcg/actuation inhaler Inhale 2 Puffs as instructed every 4 hours as needed. Disp: 8.5 g Rfl: 1 famotidine (PEPCID) 40 mg tablet Take 1 tablet by mouth once daily. Disp: 99 tablet Rfl: 1 vit-iron fumarate-fa () 28 mg iron- 800 mcg tab Take 1 tablet by mouth once daily. Disp: 123 tablet Rfl: 1 topiramate (TOPAMAX) 50 mg tablet Take 1 tablet by mouth twice daily. Disp: 60 tablet Rfl: 3 etodolac (LODINE) 300 mg capsule Take 1 capsule by mouth every 8 hours. Disp: 30 capsule Rfl: 0 Norethin Chinmay-Eth Estrad-FE (LOESTRIN FE 1.5/30) 1.5 mg-30 mcg (21)/75 mg (7) tablet Take 1 tablet by mouth once daily. Disp: 3 Package Rfl: 2 traMADol (ULTRAM) 50 mg tablet Disp: Rfl: 0 doxycycline hyclate (VIBRAMYCIN) 100 mg capsule Disp: Rfl: medroxyPROGESTERone (PROVERA) 10 mg tablet Take 1 tablet by mouth once daily. Take days 17-21. Disp: 5 tablet Rfl: 0 gabapentin (NEURONTIN) 100 mg capsule Take 100 mg by mouth twice daily. Disp: Rfl: cyclobenzaprine (FLEXERIL) 10 mg tablet Take 1 tablet by mouth three times daily as needed. Disp: 30 tablet Rfl: 0 NO122/IRON/FOLIC ACID ( MULTI ORAL) Take by mouth. Disp: Rfl: No current facility-administered medications for this visit. SOCIAL HISTORY: Patient is single. 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 PHYSICAL EXAMINATION: Blood pressure 113/71, pulse 106, height 162.6 cm (5' 4), weight 64.4 kg (142 lb), not currently . General Appearance: Well appearing, alert, in no acute distress, well-hydrated, well nourished. Skin: Skin color, texture, turgor normal, no suspicious rashes or lesions. Eyes: Anicteric sclera. Heart: RRR without murmur. Abdomen: Abdomen soft, non-tender. Bowel sounds normal. No masses, organomegaly. Impression: functional bowel disorder 2)GERD 3)dyspepsia Plan: Hold pepcid. Start omeprazole at 40mg a day. Begin Benefiber. Send an update via [employer] in 2 weeks. She agrees with this plan. I have personally interviewed and examined this patient. I have reviewed the information that the MA entered for this encounter. I spent 25 minutes in the visit, with greater than 50% of the total uxos-lb-obzc time of the visit in counseling and coordination of care. Chiquita Harp RN APRN.HARSH Harp RN APRN.HARSH 05/15/2018 8:49 AM Addendum Resume omeprazole 40mg daily. take it first thing in the morning. We can see about decreasing the dose in a couple months, if doing well. Begin Benefiber. Start by taking one teaspoon in 8 oz of liquid daily for one week. Then, increase to one tablespoon daily for 3-4 weeks. Increase to two tablespoons daily for 3-4 weeks. Finally take three tablespoons daily. At that point you may divide the dose and take twice a day, if you'd like. Do not stop using this. Report back in 2 weeks with how you are getting along. Referring Provider: SELF [[id number]] Allergies As of Date: 05/15/2018 Noted Allergy Reaction CLINDAMYCIN 10/22/2015 4 - Hives 12 - Shortness of Breath DICYCLOMINE 05/25/2017 9 - Itching FLAGYL (METRONIDAZOLE HCL) 11/01/2017 9 - Itching KEFLEX (CEPHALEXIN) 10/13/2016 10 - Anaphylaxis MOBIC (MELOXICAM) 12/20/2017 14 - Other: See Comments Comments: Chest pain PENICILLIN 10/22/2015 4 - Hives Comments: Per pt anything in the penicillin family she is allergic to PROCARDIA (NIFEDIPINE) 10/22/2015 4 - Hives Comments: Hives and seizures per pt PROGESTERONE AQUEOUS 10/13/2016 2 - Rash Comments: Progesterone cream only SULFA (SULFONAMIDE ANTIBIOTICS) 01/02/2017 4 - Hives TERBUTALINE 10/22/2015 4 - Hives Comments: Per pt has hives and seizures TESSALON (BENZONATATE) 01/01/2018 2 - Rash Date Reviewed: 05/15/2018 Reviewed by: Dania Driver Ma - Fully Assessed Reason for Visit: Recheck [92] Primary Visit Diagnosis:Functional bowel disorder [K59.9] Other Visit Diagnoses:Functional dyspepsia [K30] Gastroesophageal reflux disease, esophagitis presence not specified [K21.9] Order(s):wheat dextrin (BENEFIBER HEALTHY SHAPE) 5 gram/7.4 gram bertdTake as instructed in the office.Disp: 500 gRfl: 5 Omeprazole 40 mg capsuleTake 1 capsule by mouth once daily.Disp: 30 capsuleRfl: 2 Prescriptions as of 05/15/2018 Sig: WHEAT DEXTRIN 5 GRAM/7.4 GRAM* Take as instructed in the off* OMEPRAZOLE 40 MG CAPSULE,KAREY* Take 1 capsule by mouth once * MECLIZINE 25 MG TABLET Take 1 tablet by mouth every * PROMETHAZINE 25 MG TABLET Take 1 tablet by mouth every * FLUTICASONE 110 MCG/ACTUATION* Inhale 2 Puffs as instructed * ALBUTEROL SULFATE HFA 90 MCG/* Inhale 2 Puffs as instructed * VIT NO.95-FERROUS FU* Take 1 tablet by mouth once d* TOPIRAMATE 50 MG TABLET Take 1 tablet by mouth twice * ETODOLAC 300 MG CAPSULE Take 1 capsule by mouth every* NORETHINDRONE 1.5 MG-ETHINYL * Take 1 tablet by mouth once d* TRAMADOL 50 MG TABLET GABAPENTIN 100 MG CAPSULE Take 100 mg by mouth twice da* CYCLOBENZAPRINE 10 MG TABLET Take 1 tablet by mouth three * Problem List As Of Date 05/15/2018 Noted Resolved Seizures (HCC) [R56.9] INVALID FOR*12/27/2016 Previous delivery, antepartum [O09.219] INVALID FOR*12/27/2016 , high-risk [O09.90] INVALID FOR*12/27/2016 Bipolar 1 disorder (HCC) [F31.9] INVALID FOR* Recurrent loss (CODE) [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 with care elsewhere, antepar*INVALID FOR*12/27/2016 More... History of labor, current [O0*INVALID FOR*12/27/2016 More... History of labor [Z87.51] INVALID FOR*12/27/2016 More... UTI (urinary tract infection) in , ant*INVALID FOR*12/27/2016 More... History of depression [Z87.59, Z86.5*INVALID FOR*12/27/2016 History of depression [Z86.59] INVALID FOR* More... Custody issue [Z65.3] INVALID FOR*12/27/2016 More... Tobacco use during , antepartum [O99.3*INVALID FOR*12/27/2016 More... History of drug abuse [Z87.898] INVALID FOR* More... History of seizures [Z87.898] INVALID FOR*01/25/2017 More... H/O pre-eclampsia in prior , currently*INVALID FOR*12/27/2016 Family history of defects [Z82.79] INVALID FOR*01/25/2017 More... Family history of genetic disease [Z84.89] INVALID FOR*01/25/2017 More... Short interval between pregnancies affecting pr*INVALID FOR*12/27/2016 Poor historian [Z78.9] INVALID FOR* More... PTSD (post-traumatic stress disorder) [F43.10] Polysubstance abuse [F19.10] More... Migraines [G43.909] Asthma [J45.909] Anxiety [F41.9] Seizure (HCC) [R56.9] INVALID FOR* More... GERD (gastroesophageal reflux disease) [K21.9] INVALID FOR* Other instructions from your clinician: Resume omeprazole 40mg daily. take it first thing in the morning. We can see about decreasing the dose in a couple months, if doing well. Begin Benefiber. Start by taking one teaspoon in 8 oz of liquid daily for one week. Then, increase to one tablespoon daily for 3-4 weeks. Increase to two tablespoons daily for 3-4 weeks. Finally take three tablespoons daily. At that point you may divide the dose and take twice a day, if you'd like. Do not stop using this. Report back in 2 weeks with how you are getting along. Prescriptions ordered this encounter Disp Refills Start End WHEAT DEXTRIN 5 GRAM/7.4 GRAM ORAL P* 500 g 5 05/15/2018 Sig: Take as instructed in the office. OMEPRAZOLE 40 MG CAPSULE,DELAYED REL* 30 c* 2 05/15/2018 Route: ORAL Sig: Take 1 capsule by mouth once daily. Medications Discontinued During This Encounter NO122/IRON/FOLIC ACID (PREN* 05/15/2018 Class: Historical Med Route: ORAL Sig: Take by mouth. Disc: Duplicate Entry medroxyPROGESTERone (PROVERA) 10 mg * 5 ta* 0 02/20/2018 05/15/2018 Route: ORAL Sig: Take 1 tablet by mouth once daily. Take days 17-21. Disc: Course of therapy completed doxycycline hyclate (VIBRAMYCIN) 100* 03/20/2018 05/15/2018 Class: Historical Med Sig: Disc: Course of therapy completed lurasidone (LATUDA) 20 mg tablet 05/08/2018 05/15/2018 Class: Med Update Route: ORAL Sig: Take 1 tablet by mouth once daily. Disc: Side Effects famotidine (PEPCID) 40 mg tablet 99 t* 1 04/25/2018 05/15/2018 Route: ORAL Sig: Take 1 tablet by mouth once daily. Disc: Changing Therapy/Dosage Form Encounter Status:Closed by CHIQUITA HARP CNP on 05/15/18 PROGRESS Observed: 05/14/2018 Status: COMPLETED Source: [place] 12:43 PM [facility] RE[facility] HNO ID: [id number] Author: Chiquita (Slava) Katiuska Service: (none) Author Type: Nurse Practitioner Type: Progress Notes Filed: 05/15/2018 9:11 AM Note Text: Fernando White a 22 year old female who is self referred for the evaluation of intestinal issues. Her PCP is Dr. Gipson. I saw her in consultation on 05/25/17 for complaints of abdominal pain, nausea and vomiting as well as altered bowel habits. That note has been reviewed. The patient was seen by Dr. Cochran for upper endoscopy and colonoscopy, at [facility], on 06/12/17. The procedure report has been reviewed. EGD: duodenitis, gastritis, gastric ulcer - non bleeding, esophagitis Colonoscopy: poor prep - normal colon ? Pathology: Mild gastritis. Esophagus- gastric mucosa with chronic inflammation. Intestinal metaplasia not identified. Colon- no pathologic diagnosis. The patient was last seen on 06/30/17 as follow up for procedures noted below. That note has been reviewed. She was prescribed omeprazole and carafate and asked to follow up in 8 weeks. We haven't heard from her since that encounter. Presenting complaint: The patient presents today stating I am struggling to use the restroom, then there are times where I can't stay out of the bathroom. Her last bowel movement was around 05/10. That bowel movement was soft formed. Recently nausea, vomited, high fever. She saw Antionette Posadas on 05/08 for this. She has been inpatient with fever - blood cultures taken. She tells me that she at that time she hadn't had a bowel movement in 2 weeks. She has functional bowel disorder. She isn't on a fiber supplement. The patient tells me that she is taking Pepcid daily, but usually has to take additional ones. She tells me that she had been taking that along with the omeprazole, last year. I'll send in a prescription for the PPI. REVIEW OF SYSTEMS: GENERAL: No unplanned weight loss. Positive for fever of unknown origin. GI: The patient states that her appetite has been adequate. She does get hungry. There has been some nausea, vomited once. She denies dysphagia and denies odynophagia. There has been indigestion with heartburn. There has not been regurgitation. Bowel habits have been irregular. There has been diarrhea. There has been constipation. The patient denies rectal bleeding. There has not been melena. No new or worsening abdominal pain. PSYCH: Positive for anxiety, bipolar disorder and depression. Seeing psychiatrist. All other reviewed and negative other than HPI. PAST MEDICAL HISTORY Diagnosis Date - Abnormal Pap smear of cervix - ADHD (attention deficit hyperactivity disorder) - Anemia - Anxiety [facility] - Asthma - Bipolar disorder (HCC) - Chlamydia 2013 - Complication of anesthesia migraines after anesthesia - Convulsions ([facility]) - GERD (gastroesophageal reflux disease) - Migraines - Polysubstance abuse ([facility]) History. 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 - Tobacco use PAST SURGICAL HISTORY Procedure Laterality Date - COLONOSCOP W/ OR W/O [facility] SPEC 06/12/2017 Colonoscopy [facility] - normal - Bx negative - EGD W/O OR W/BRUSH/WASH 06/12/2017 EGD - duodenitis, gastritis, superfical gastric ulcers, - EXTRACTION ERUPTED TOOTH/EXR Right - KNEE SCOPE,AID ANT CRUCIATE REPAIR Right 01/27/2017 Right knee arthroscopic ACL reconstruction with hamstring autograft and medial menisectomy - TUBAL LIGATION HX FAMILY HISTORY Problem Relation Age of Onset - Adopted: Yes - Breast Cancer Mother - Seizures Mother - Thyroid Mother - other (Fibromylagia) Mother - Seizures Paternal Grandmother - other (Lung Cancer) Paternal Grandmother - other (Coagulopathy) Paternal Grandmother - Cervical Cancer Maternal Grandmother - Thyroid Maternal Grandmother - Seizures Maternal Grandmother - Breast Cancer Maternal Grandmother - Seizures Paternal Grandfather - other (Pancreatic Cancer) Paternal Grandfather - other (Coagulopathy) Paternal Grandfather - other (Leukemia) Paternal Aunt - Seizures Father - Heart Father 39 [place] - other (Coagulopathy) Paternal Aunt - Seizures Maternal Grandfather - other (autism, fragile x) Sister - other (Down Syndrome) Brother Current Outpatient Prescriptions: lurasidone (LATUDA) 20 mg tablet Take 1 tablet by mouth once daily. Disp: Rfl: meclizine (ANTIVERT) 25 mg tab Take 1 tablet by mouth every 6 hours as needed (dizziness). Disp: 30 tablet Rfl: 1 promethazine (PHENERGAN) 25 mg tablet Take 1 tablet by mouth every 6 hours as needed. Disp: 28 tablet Rfl: 0 fluticasone (FLOVENT) 110 mcg/actuation inhaler Inhale 2 Puffs as instructed twice daily. Disp: 1 Inhaler Rfl: 2 albuterol HFA (PROAIR HFA) 90 mcg/actuation inhaler Inhale 2 Puffs as instructed every 4 hours as needed. Disp: 8.5 g Rfl: 1 famotidine (PEPCID) 40 mg tablet Take 1 tablet by mouth once daily. Disp: 99 tablet Rfl: 1 vit-iron fumarate-fa () 28 mg iron- 800 mcg tab Take 1 tablet by mouth once daily. Disp: 123 tablet Rfl: 1 topiramate (TOPAMAX) 50 mg tablet Take 1 tablet by mouth twice daily. Disp: 60 tablet Rfl: 3 etodolac (LODINE) 300 mg capsule Take 1 capsule by mouth every 8 hours. Disp: 30 capsule Rfl: 0 Norethin Chinmay-Eth Estrad-FE (LOESTRIN FE 1.5/30) 1.5 mg-30 mcg (21)/75 mg (7) tablet Take 1 tablet by mouth once daily. Disp: 3 Package Rfl: 2 traMADol (ULTRAM) 50 mg tablet Disp: Rfl: 0 doxycycline hyclate (VIBRAMYCIN) 100 mg capsule Disp: Rfl: medroxyPROGESTERone (PROVERA) 10 mg tablet Take 1 tablet by mouth once daily. Take days 17-21. Disp: 5 tablet Rfl: 0 gabapentin (NEURONTIN) 100 mg capsule Take 100 mg by mouth twice daily. Disp: Rfl: cyclobenzaprine (FLEXERIL) 10 mg tablet Take 1 tablet by mouth three times daily as needed. Disp: 30 tablet Rfl: 0 NO122/IRON/FOLIC ACID ( MULTI ORAL) Take by mouth. Disp: Rfl: No current facility-administered medications for this visit. SOCIAL HISTORY: Patient is single. 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 PHYSICAL EXAMINATION: Blood pressure 113/71, pulse 106, height 162.6 cm (5' 4), weight 64.4 kg (142 lb), not currently . General Appearance: Well appearing, alert, in no acute distress, well-hydrated, well nourished. Skin: Skin color, texture, turgor normal, no suspicious rashes or lesions. Eyes: Anicteric sclera. Heart: RRR without murmur. Abdomen: Abdomen soft, non-tender. Bowel sounds normal. No masses, organomegaly. Impression: functional bowel disorder 2)GERD 3)dyspepsia Plan: Hold pepcid. Start omeprazole at 40mg a day. Begin Benefiber. Send an update via [employer] in 2 weeks. She agrees with this plan. I have personally interviewed and examined this patient. I have reviewed the information that the MA entered for this encounter. I spent 25 minutes in the visit, with greater than 50% of the total fmnq-au-kozz time of the visit in counseling and coordination of care. Chiquita Harp RN ROBOT OPERATOR.PICTURE ENLARGER 12 LEAD ELECTROCARDIOGRAM Observed: 05/10/2018 Status: F Source: [place] 10:34 AM [facility] REPOSITORY [facility] Cardiovascular Services [address] [place] [address] 12 Lead EKG 05/07/18 1157 MR#: [id number] Acct: [id number] Name: FERNANDO ROUSSEAU Rep #: [id number] : 1995 22 From: Bayron Tubbs MD Attending Dr: Status: DEP ER Ordering Dr: Lee Cox MD Date: 05/07/18 Location: ED Sex: F C Admitted: Test Reason : GEN ILL Blood Pressure : / mmHG Vent. Rate : 104 BPM Atrial Rate : 104 BPM P-R Int : 134 ms QRS Dur : 092 ms QT Int : 340 ms P-R-T Axes : 073 089 046 degrees QTc Int : 447 ms Sinus tachycardia Incomplete right bundle branch block Borderline ECG Confirmed by NIGEL CRUZ, BAYRON ([id number]), publishing editor SRINATH MOORE ([id number]) on 05/10/2018 10:34:04 AM Referred By: Francine Carbajal Confirmed By:BAYRON TUBBS MD 05/10/18 1034 Date Bayron Tubbs MD CC: Kenendy Gipson MD; Lee Cox MD Signed 12 LEAD ELECTROCARDIOGRAM Observed: 05/10/2018 Status: F Source: [place] 9:57 AM [facility] REPOSITORY [facility] Cardiovascular Services [address] [place] [address] 12 Lead EKG 05/08/1833 MR#: [id number] Acct: [id number] Name: FERNANDO ROUSSEAU Rep #: [id number] : 1995 22 From: Km Rodriguez MD Attending Dr: Status: DEP ER Ordering Dr: Reggie Sierra MD Date: 05/08/18 Location: ED Sex: F C Admitted: Test Reason : DIZZINESS Blood Pressure : / mmHG Vent. Rate : 098 BPM Atrial Rate : 098 BPM P-R Int : 136 ms QRS Dur : 094 ms QT Int : 340 ms P-R-T Axes : 072 090 042 degrees QTc Int : 434 ms Normal sinus rhythm Rightward axis Borderline ECG Confirmed by KM RODRIGUEZ MD ([id number]), publishing editor SRINATH MOORE ([id number]) on 05/10/2018 9:56:35 AM Referred By: KAHLIL Confirmed By:KM RODRIGUEZ MD 05/10/18 0956 Date Km Rodriguez MD CC: MD Tamera Sierra; Kennedy Gipson MD Signed EMERGENCY DEPARTMENT Observed: 05/08/2018 Status: F Source: [place] SUMMARY 5:16 PM [facility] REPOSITORY [facility] Medical Records Department [address] [place] [id number] Emergency Department Summary 05/08/1821 MR#: [id number] Acct: [id number] Name: FERNANDO ROUSSEAU Rep #: [id number] : 1995 22 From: Reggie Sierra MD PCP: Kennedy Gipson MD Status: DEP ER - ER Visit Summary Date of Service: 05/08/18 Chief Complaint: [] Fever generalized weakness History of Present Illness: The patient is a 22 F [] she has had a sense of weakness and fatigue for the last 3 days, she was seen yesterday in the emergency department after being fatigued and having what sounds like a possible syncopal episode, she had seen in the emergency department, she indicates when seen in the [facility] emergency department really nothing was done for her she was dissatisfied with the care that was provided to her, so then she went to the [facility] emergency department where she had a workup that was generally unremarkable, she was told to follow-up with her primary care physicians, she indicates she called the office and because she had a fever today she was told to come to the emergency department, She believes she did have a flu swab at 1 of the hospitals that was negative, when I further questioned her it appears that she when seen at [facility] had an extensive workup including a CTA of her chest that was negative and lab work She denies a runny nose no sore throat she complains of the fever generalized body aches and headache, normal bowel bladder habits no urinary symptoms denies a hip history of anything to suggest a source for fever. She is able to eat Physical Examination: [] Pressure is 100.8 she is awake and alert sitting in a brightly lit room her pupils are equal round reactive her neck is very supple no adenopathy no meningismus the throat is clear the lungs are clear the heart tones are normal for the heart rate of 120 the abdomen is soft nontender upper lower extremities unremarkable no skin rash the back is unremarkable she has no Kernig's or Brudzinski's full range of motion of all major joints without tenderness neurologically normal awake alert answering questions appropriately Test Results: [] Emergency Department Course and Treatment: [] Illness for the last few days ED workup is as above when I reviewed the CT report there was some mention of lingula atelectasis no PE or anything else acute at this time screening labs are obtained IV fluids antipyretics Patient studies are generally all unremarkable see those reports, the lab work, UA hCG, chest x-ray are negative, on reevaluation her vital signs are normal she is feeling much better she has been able to take p.o. fluids, her viral screens and strep throat screens were negative for all see those reports, I have explained all the above to her given her improvement I believe it is safe to discharge her home to follow-up with her physicians of explained her the exact etiology for the febrile illness is unclear she should return for change in symptoms, with regards to the generalized weakness that predated the fever she should also help with her doctors as an outpatient return for change in symptoms again she is improved agrees this plan and will follow up Treatment Plan: [] Disposition: [] Home stable Impression: [] febrile illness etiology unclear, generalized weakness etiology unclear This note was generated with [employer] dictation software. It may contain incorrect words, spelling, and punctuation that were not noted in review of the chart prior to signing ED Disposition - Plan for ED Patient: Chief Complaint: Dizziness Referrals: Kennedy Gipson MD [Primary Care Provider] - What to do if you have Problems For any increased pain, shortness of breath, bleeding, nausea or vomiting, chest pain, or any unexpected problems, contact your Primary Care Provider. Call [facility] ([phone]) or report to the closest Emergency Room. Call 911 if necessary. 05/08/18 1716 <Electronically signed by Reggie Sierra MD> Date Reggie Sierra MD Cosigner Signature (If Indicated): Date CC: Kennedy Gipson MD PROGRESS Observed: 05/08/2018 Status: COMPLETED Source: [place] 2:46 PM [facility] RE[facility] HNO ID: [id number] Author: Antionette Archuleta) Podlogar Service: (none) Author Type: Nurse Practitioner Type: Progress Notes Filed: 05/09/2018 8:50 AM Note Text: 05/08/2018 Patient presents with: Dizziness: pt states started monday with dizziness, weakness , nausea and fever SUBJECTIVE: This is a 22 year old that is here today for Above Complaints. Seen in ER three times since 05/07/2018 with last visit being this morning Today at [facility] CBC, BMP, troponin, strep influenza, lactic acid and CXR WNL. Reports UA at [place] on Monday showed concerns for UTI- was provided prescription for Cipro,however she did not start it. On 05/07 visit to [facility] it was noted she had an elevated d-dimer. Negative HCG. CTA performed- negative for PE. Intially symptoms started on Monday. Has had a couple of high temps- reports today was 103.5 prior to ER visit. Reports was given 2 bags of IV fluids this morning. Urine culture and blood cultures drawn and pending. Positive for syncopal episode on Monday- went to ER for- none since, diziness -reports it is like she is spinning and the room is spinning, slight ringing in right ear, tactile fevers,chills, fatigue, generalized weakness, constipation, and nausea. Denies sick contacts, weight loss, new hearing loss, change of migraines in intensity or frequency, rashes, blurry/double vision SOB, dyspnea, wheezing, coughing, chest pain, palpitations, extremity numbness/tingling/weakness, abdominal pain, diarrhea, vomiting, dysuria, urinary urgency/frequency. Report started new medication Lutuda 20 mg on April 30. Date and Time Orthostatic BP Orthostatic Pulse BP Pulse BP Position BP Site BP Cuff Size 05/08/18 1502 103/72 89 -- -- Standing Right Arm Regular Adult 05/08/18 1501 110/73 84 -- -- Sitting Right Leg Regular Adult 05/08/18 1459 118/75 75 -- -- Supine Right Arm Regular Adult 05/08/18 1454 -- -- 90/50 96 Sitting Left Arm Regular Adult PAST MEDICAL HISTORY Diagnosis Date - Abnormal Pap smear of cervix - ADHD (attention deficit hyperactivity disorder) - Anemia - Anxiety [facility] - Asthma - Bipolar disorder (HCC) - Chlamydia 2013 - Complication of anesthesia migraines after anesthesia - Convulsions (HCC) - GERD (gastroesophageal reflux disease) - Migraines - Polysubstance abuse ([facility]) History. 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 - Tobacco use ALLERGIES Clindamycin; Dicyclomine; Flagyl [Metronidazole Hcl]; Keflex [Cephalexin]; Mobic [Meloxicam]; Penicillin; Procardia [Nifedipine]; Progesterone Aqueous; Sulfa (Sulfonamide Antibiotics); Terbutaline; Tessalon [Benzonatate] MEDICATIONS Current Outpatient Prescriptions: fluticasone (FLOVENT) 110 mcg/actuation inhaler Inhale 2 Puffs as instructed twice daily. albuterol HFA (PROAIR HFA) 90 mcg/actuation inhaler Inhale 2 Puffs as instructed every 4 hours as needed. famotidine (PEPCID) 40 mg tablet Take 1 tablet by mouth once daily. vit-iron fumarate-fa () 28 mg iron- 800 mcg tab Take 1 tablet by mouth once daily. topiramate (TOPAMAX) 50 mg tablet Take 1 tablet by mouth twice daily. etodolac (LODINE) 300 mg capsule Take 1 capsule by mouth every 8 hours. Norethin Chinmay-Eth Estrad-FE (LOESTRIN FE 1.5/30) 1.5 mg-30 mcg (21)/75 mg (7) tablet Take 1 tablet by mouth once daily. traMADol (ULTRAM) 50 mg tablet doxycycline hyclate (VIBRAMYCIN) 100 mg capsule medroxyPROGESTERone (PROVERA) 10 mg tablet Take 1 tablet by mouth once daily. Take days 17-21. gabapentin (NEURONTIN) 100 mg capsule Take 100 mg by mouth twice daily. cyclobenzaprine (FLEXERIL) 10 mg tablet Take 1 tablet by mouth three times daily as needed. NO122/IRON/FOLIC ACID ( MULTI ORAL) Take by mouth. No current facility-administered medications for this visit. Medications and allergies reviewed by this provider. SOCIAL HISTORY Social History Marital status: Spouse name: Years of education: 13 Number of children: 4 Social History Main Topics Smoking status: Current Every Day Smoker Packs/day: 1.50 Years: 0.00 Types: Cigarettes Start date: 07/28/2006 Smokeless tobacco: Current User Types: Chew Alcohol use: No Comment: 11 months sober Drug use: No Comment: Hx of drug use I have used everything except LSD,Ecstacy and wander States last use 09/2015 Sexual activity: Yes Partners with: Female, Male control/protection: Tubal Ligation REVIEW OF SYSTEMS All other reviewed and negative other than HPI. OBJECTIVE: BP 90/50 (BP Site: Left Arm, BP Position: Sitting, BP Cuff Size: Regular Adult) Pulse 96 Temp 36.9 ?C (98.4 ?F) Resp 18 Wt 66.2 kg (146 lb 0.6 oz) BMI 24.87 kg/m? . Vital signs reviewed by this provider. APPEARANCE Well appearing, alert, in no acute distress, well-hydrated, well nourished. EYES PERRLA, conjunctiva and sclera normal. and pupils equal, round, reactive to light and accommodation. No nystagmus EARS External ears normal, canals clear THROAT normal, no erythema NECK Supple, no adenopathy; thyroid symmetric, normal size, HEART RRR with normal S1 and S2, no murmurs, no gallops, no JVD appreciated LUNG clear to auscultation ABDOMEN bowel sounds normoactive, no bruits, soft, non-tender, non-distended EXTREMITIES Extremities normal, No deformities, No skin discoloration, No edema and Normal pulses bilaterally. NEURO Awake, alert and oriented x 3, Cranial nerves II-XII grossly intact, Reflexes symmetrical, Normal gait, No involuntary motions. and negative findings: gait, including heel, toe, and tandem walking normal, muscle tone normal, muscle strength normal, rapid alternating movements normal, finger to nose normal, reflexes normal and symmetric, plantar response downgoing bilaterally. Unable to do romberg reports when closes her eyes she is nauseated SKIN Skin color, texture, turgor normal, no suspicious rashes or lesions to exposed skin Kensett-hallpike negative to right. Unable to do left as patient reports she pulled a muscle in her neck ASSESSMENT/PLAN: 1. Dizziness - ICD9: 780.4, ICD10: R42 (primary diagnosis) - consider related to viral illness vs BPPV vs related to new medication vs unknown - anitvert every 6 hours as needed for dizziness - handout on mariana provided - follow-up if persists or worsens 2. Nausea - ICD9: 787.02, ICD10: R11.0 - plan as above - phenergan 25 mg every 6 hours as needed 3. Generalized weakness - ICD9: 780.79, ICD10: R53.1 - consider mono vs viral illness vs unknown - follow-up if persisting or worsening 4. Fever, unspecified fever cause - ICD9: 780.60, ICD10: R50.9 - blood cultures and urine cultures pending at [facility] - follow-up if persisting or worsening Antionette Mckinney, ROYAL.PICTURE ENLARGER Prescription instructions reviewed with patient as applicable. Patient advised if symptoms do not improve or if symptoms worsen sooner, to contact their primary care physician. Potential red flag symptoms discussed with the patient. Reviewed appropriate action plan to take if red flag symptoms occur. Patient agreeable to treatment plan. CNOV Observed: 05/08/2018 Status: COMPLETED Source: [place] 2:40 PM [facility] RE[facility]IT[facility] Office Visit (FAMPWS) FERNANDO ROUSSEAU ([id number]) 1995 F Date Time Provider Department 05/08/18 2:40 PM ANTIONETTE MCKINNEY ([facility]) [facility] During your visit today, we recorded the following information about you: Temperature Pulse Respiration Blood pressure 98.4 degrees 96/minute 18/minute 90/50 Weight 66.2 kg Antionette Mckinney APRN.CNP 05/09/2018 8:50 AM Signed 05/08/2018 Patient presents with: Dizziness: pt states started monday with dizziness, weakness , nausea and fever SUBJECTIVE: This is a 22 year old that is here today for Above Complaints. Seen in ER three times since 05/07/2018 with last visit being this morning Today at [facility] CBC, BMP, troponin, strep influenza, lactic acid and CXR WNL. Reports UA at [place] on Monday showed concerns for UTI- was provided prescription for Cipro,however she did not start it. On 05/07 visit to [facility] it was noted she had an elevated d-dimer. Negative HCG. CTA performed- negative for PE. Intially symptoms started on Monday. Has had a couple of high temps- reports today was 103.5 prior to ER visit. Reports was given 2 bags of IV fluids this morning. Urine culture and blood cultures drawn and pending. Positive for syncopal episode on Monday- went to ER for- none since, diziness -reports it is like she is spinning and the room is spinning, slight ringing in right ear, tactile fevers,chills, fatigue, generalized weakness, constipation, and nausea. Denies sick contacts, weight loss, new hearing loss, change of migraines in intensity or frequency, rashes, blurry/double vision SOB, dyspnea, wheezing, coughing, chest pain, palpitations, extremity numbness/tingling/weakness, abdominal pain, diarrhea, vomiting, dysuria, urinary urgency/frequency. Report started new medication Lutuda 20 mg on April 30. Date and Time Orthostatic BP Orthostatic Pulse BP Pulse BP Position BP Site BP Cuff Size 05/08/18 1502 103/72 89 -- -- Standing Right Arm Regular Adult 05/08/18 1501 110/73 84 -- -- Sitting Right Leg Regular Adult 05/08/18 1459 118/75 75 -- -- Supine Right Arm Regular Adult 05/08/18 1454 -- -- 90/50 96 Sitting Left Arm Regular Adult PAST MEDICAL HISTORY Diagnosis Date - Abnormal Pap smear of cervix - ADHD (attention deficit hyperactivity disorder) - Anemia - Anxiety [facility] - Asthma - Bipolar disorder ([facility]) - Chlamydia 2013 - Complication of anesthesia migraines after anesthesia - Convulsions ([facility]) - GERD (gastroesophageal reflux disease) - Migraines - Polysubstance abuse ([facility]) History. 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 - Tobacco use ALLERGIES Clindamycin; Dicyclomine; Flagyl [Metronidazole Hcl]; Keflex [Cephalexin]; Mobic [Meloxicam]; Penicillin; Procardia [Nifedipine]; Progesterone Aqueous; Sulfa (Sulfonamide Antibiotics); Terbutaline; Tessalon [Benzonatate] MEDICATIONS Current Outpatient Prescriptions: fluticasone (FLOVENT) 110 mcg/actuation inhaler Inhale 2 Puffs as instructed twice daily. albuterol HFA (PROAIR HFA) 90 mcg/actuation inhaler Inhale 2 Puffs as instructed every 4 hours as needed. famotidine (PEPCID) 40 mg tablet Take 1 tablet by mouth once daily. vit-iron fumarate-fa () 28 mg iron- 800 mcg tab Take 1 tablet by mouth once daily. topiramate (TOPAMAX) 50 mg tablet Take 1 tablet by mouth twice daily. etodolac (LODINE) 300 mg capsule Take 1 capsule by mouth every 8 hours. Norethin Chinmay-Eth Estrad-FE (LOESTRIN FE 1.5/30) 1.5 mg-30 mcg (21)/75 mg (7) tablet Take 1 tablet by mouth once daily. traMADol (ULTRAM) 50 mg tablet doxycycline hyclate (VIBRAMYCIN) 100 mg capsule medroxyPROGESTERone (PROVERA) 10 mg tablet Take 1 tablet by mouth once daily. Take days 17-21. gabapentin (NEURONTIN) 100 mg capsule Take 100 mg by mouth twice daily. cyclobenzaprine (FLEXERIL) 10 mg tablet Take 1 tablet by mouth three times daily as needed. NO122/IRON/FOLIC ACID ( MULTI ORAL) Take by mouth. No current facility-administered medications for this visit. Medications and allergies reviewed by this provider. SOCIAL HISTORY Social History Marital status: Spouse name: Years of education: 13 Number of children: 4 Social History Main Topics Smoking status: Current Every Day Smoker Packs/day: 1.50 Years: 0.00 Types: Cigarettes Start date: 07/28/2006 Smokeless tobacco: Current User Types: Chew Alcohol use: No Comment: 11 months sober Drug use: No Comment: Hx of drug use I have used everything except LSD,Ecstacy and wander States last use 09/2015 Sexual activity: Yes Partners with: Female, Male control/protection: Tubal Ligation REVIEW OF SYSTEMS All other reviewed and negative other than HPI. OBJECTIVE: BP 90/50 (BP Site: Left Arm, BP Position: Sitting, BP Cuff Size: Regular Adult) Pulse 96 Temp 36.9 ?C (98.4 ?F) Resp 18 Wt 66.2 kg (146 lb 0.6 oz) BMI 24.87 kg/m? . Vital signs reviewed by this provider. APPEARANCE Well appearing, alert, in no acute distress, well- hydrated, well nourished. EYES PERRLA, conjunctiva and sclera normal. and pupils equal, round, reactive to light and accommodation. No nystagmus EARS External ears normal, canals clear THROAT normal, no erythema NECK Supple, no adenopathy; thyroid symmetric, normal size, HEART RRR with normal S1 and S2, no murmurs, no gallops, no JVD appreciated LUNG clear to auscultation ABDOMEN bowel sounds normoactive, no bruits, soft, non-tender, non-distended EXTREMITIES Extremities normal, No deformities, No skin discoloration, No edema and Normal pulses bilaterally. NEURO Awake, alert and oriented x 3, Cranial nerves II-XII grossly intact, Reflexes symmetrical, Normal gait, No involuntary motions. and negative findings: gait, including heel, toe, and tandem walking normal, muscle tone normal, muscle strength normal, rapid alternating movements normal, finger to nose normal, reflexes normal and symmetric, plantar response downgoing bilaterally. Unable to do romberg reports when closes her eyes she is nauseated SKIN Skin color, texture, turgor normal, no suspicious rashes or lesions to exposed skin Ashleigh-hallpike negative to right. Unable to do left as patient reports she pulled a muscle in her neck ASSESSMENT/PLAN: 1. Dizziness - ICD9: 780.4, ICD10: R42 (primary diagnosis) - consider related to viral illness vs BPPV vs related to new medication vs unknown - anitvert every 6 hours as needed for dizziness - handout on mariana provided - follow-up if persists or worsens 2. Nausea - ICD9: 787.02, ICD10: R11.0 - plan as above - phenergan 25 mg every 6 hours as needed 3. Generalized weakness - ICD9: 780.79, ICD10: R53.1 - consider mono vs viral illness vs unknown - follow-up if persisting or worsening 4. Fever, unspecified fever cause - ICD9: 780.60, ICD10: R50.9 - blood cultures and urine cultures pending at [facility] - follow-up if persisting or worsening Antionette AndradelogROYAL [employer].PICTURE ENLARGER Prescription instructions reviewed with patient as applicable. Patient advised if symptoms do not improve or if symptoms worsen sooner, to contact their primary care physician. Potential red flag symptoms discussed with the patient. Reviewed appropriate action plan to take if red flag symptoms occur. Patient agreeable to treatment plan. Referring Provider: SELF [[id number]] Allergies As of Date: 05/08/2018 Noted Allergy Reaction CLINDAMYCIN 10/22/2015 4 - Hives 12 - Shortness of Breath DICYCLOMINE 05/25/2017 9 - Itching FLAGYL (METRONIDAZOLE HCL) 11/01/2017 9 - Itching KEFLEX (CEPHALEXIN) 10/13/2016 10 - Anaphylaxis MOBIC (MELOXICAM) 12/20/2017 14 - Other: See Comments Comments: Chest pain PENICILLIN 10/22/2015 4 - Hives Comments: Per pt anything in the penicillin family she is allergic to PROCARDIA (NIFEDIPINE) 10/22/2015 4 - Hives Comments: Hives and seizures per pt PROGESTERONE AQUEOUS 10/13/2016 2 - Rash Comments: Progesterone cream only SULFA (SULFONAMIDE ANTIBIOTICS) 01/02/2017 4 - Hives TERBUTALINE 10/22/2015 4 - Hives Comments: Per pt has hives and seizures TESSALON (BENZONATATE) 01/01/2018 2 - Rash Date Reviewed: 05/08/2018 Reviewed by: Elizabeth Harrell (Plug Stitcher) RADHA Kyle - Fully Assessed Reason for Visit: Dizziness [36] Cmt: pt states started monday with dizziness, weakness , nausea and fever Primary Visit Diagnosis:Dizziness [R42] Other Visit Diagnoses:Nausea [R11.0] Generalized weakness [R53.1] Fever, unspecified fever cause [R50.9] Order(s):lurasidone (LATUDA) 20 mg tabletTake 1 tablet by mouth once daily.Disp: Rfl: meclizine (ANTIVERT) 25 mg tabTake 1 tablet by mouth every 6 hours as needed (dizziness).Disp: 30 tabletRfl: 1 promethazine (PHENERGAN) 25 mg tabletTake 1 tablet by mouth every 6 hours as needed.Disp: 28 tabletRfl: 0 Prescriptions as of 05/08/2018 Sig: FLUTICASONE 110 MCG/ACTUATION* Inhale 2 Puffs as instructed * ALBUTEROL SULFATE HFA 90 MCG/* Inhale 2 Puffs as instructed * FAMOTIDINE 40 MG TABLET Take 1 tablet by mouth once d* VIT NO.95-FERROUS FU* Take 1 tablet by mouth once d* TOPIRAMATE 50 MG TABLET Take 1 tablet by mouth twice * ETODOLAC 300 MG CAPSULE Take 1 capsule by mouth every* NORETHINDRONE 1.5 MG-ETHINYL * Take 1 tablet by mouth once d* GABAPENTIN 100 MG CAPSULE Take 100 mg by mouth twice da* CYCLOBENZAPRINE 10 MG TABLET Take 1 tablet by mouth three * MULTI ORAL Take by mouth. 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 with care elsewhere, antepar*INVALID FOR*12/27/2016 More... History of labor, current [O0*INVALID FOR*12/27/2016 More... History of labor [Z87.51] INVALID FOR*12/27/2016 More... UTI (urinary tract infection) in , ant*INVALID FOR*12/27/2016 More... History of depression [Z87.59, Z86.5*INVALID FOR*12/27/2016 History of depression [Z86.59] INVALID FOR* More... Custody issue [Z65.3] INVALID FOR*12/27/2016 More... Tobacco use during , antepartum [O99.3*INVALID FOR*12/27/2016 More... History of drug abuse [Z87.898] INVALID FOR* More... History of seizures [Z87.898] INVALID FOR*01/25/2017 More... H/O pre-eclampsia in prior , currently*INVALID FOR*12/27/2016 Family history of defects [Z82.79] INVALID FOR*01/25/2017 More... Family history of genetic disease [Z84.89] INVALID FOR*01/25/2017 More... Short interval between pregnancies affecting pr*INVALID FOR*12/27/2016 Poor historian [Z78.9] INVALID FOR* More... PTSD (post-traumatic stress disorder) [F43.10] Polysubstance abuse [F19.10] More... Migraines [G43.909] Asthma [J45.909] Anxiety [F41.9] Seizure (HCC) [R56.9] INVALID FOR* More... GERD (gastroesophageal reflux disease) [K21.9] INVALID FOR* Prescriptions ordered this encounter Disp Refills Start End LURASIDONE 20 MG TABLET 05/08/2018 Class: Med Update Route: ORAL Sig: Take 1 tablet by mouth once daily. MECLIZINE 25 MG TABLET 30 t* 1 05/08/2018 Route: ORAL Sig: Take 1 tablet by mouth every 6 hours as needed (dizziness). PROMETHAZINE 25 MG TABLET 28 t* 0 05/08/2018 Route: ORAL Sig: Take 1 tablet by mouth every 6 hours as needed. Follow-up and Disposition History Recorded Encounter Status:Closed by ANTIONETTE MCKINNEY CNP on 05/09/18 DISCHARGE INSTRUCTION Observed: 05/08/2018 Status: F Source: [place] 12:21 PM [facility] REPOSITORY [facility] Medical Records Department [address] [place] [address] Discharge Instruction 05/08/18 1220 MR#: [id number] Acct: [id number] Name: FERNANDO ROUSSEAU Rep #: [id number] : 1995 22 From: Reggie Sierra MD PCP: Kennedy Gipson MD Status: REG ER ED Disposition - Plan for ED Patient: Chief Complaint: Dizziness Instructions: ED Dizziness UKO, ED Fever Unconf Cause Referrals: Kennedy Gipson MD [Primary Care Provider] - What to do if you have Problems For any increased pain, shortness of breath, bleeding, nausea or vomiting, chest pain, or any unexpected problems, contact your Primary Care Provider. Call [facility] ([phone]) or report to the closest Emergency Room. Call 911 if necessary. 05/08/18 1221 <Electronically signed by Reggie Sierra MD> Date Reggie Sierra MD Cosigner Signature (If Indicated): Date CC: Kennedy Gipson MD CBC W/DIFF, AUTOMATED Collected: 05/08/2018 Status: F Source: [place] 10:15 AM [facility] REPOSITORY TYPE CODE TESTS RESULT OUT OF RANGE REFERENCE UNITS LAB L100.1000 4.4-11.0 K/mm3 Normal WBC 5.0 LAB L100.1200 4.2-5.4 M/mm3 Low RBC 4.18 LAB L100.1300 12.0-15.0 g/dl Low HGB 11.7 LAB L100.1400 37-47 % Low HCT 35.5 LAB L100.1500 81-99 fL Normal MCV 84.9 LAB L100.1600 27.0-32.0 pg Normal MCH 28.0 LAB L100.1700 32-36 g/gl Normal MCHC 33.0 LAB L100.1810 11.6-14.6 % Normal RDW CV 12.8 LAB L100.1820 35.1-43.9 fl Normal RDW SD 39.9 LAB L100.1900 150-450 K/mm3 Low PLT 148 LAB L100.2000 6.2-12.0 fl Normal MPV 11.2 LAB L100.2100 47-70 % Normal NEUT% 69.0 LAB L100.2200 19-41 % Low LY% 16.7 LAB L100.2300 0-10 % High MONO% 13.5 LAB L100.2400 0-5 % Normal EO% 0.0 LAB L100.2500 0-1 % Normal BASO% 0.4 LAB L100.2550 0.0-0.9 % Normal IM GRAN % 0.400 Result Comment: IG% - Immature Granulocytes (promyelocytes, myelocytes and metamyelocytes) > 1% indicates that a LEFT SHIFT is Present. LAB L100.2620 2.0-7.7 X10 3/uL Normal Absolute Neut 3.4 LAB L100.2720 0.83-4.51 X10 3/ul Normal Absolute Lymph 0.83 Performed By: #### L100.0100 #### [facility] [address] [place], [place], [address] BASIC METABOLIC Collected: 05/08/2018 Status: F Source: [place] PROFILE (BMP) 10:15 AM [facility] REPOSITORY TYPE CODE TESTS RESULT OUT OF RANGE REFERENCE UNITS LAB L501.0100 74-106 mg/dL Normal GLU 98 Result Comment: Please note revised GLUCOSE reference range effective 2017. LAB L501.1000 7-18 mg/dL Normal BUN 9 LAB L501.1100 0.55-1.02 mg/dL Normal CREAT,SERUM 0.79 Result Comment: The validity of the calculated GFR AND GFRAA in patients over 70 years has not been determined. Clinical correlation is essential. LAB L501.1110 >60 mL/min Normal EST GFR 95 Result Comment: Non- GFR Calc LAB L501.1115 >60 mL/min Normal EST GFR - AA 115 Result Comment: GFR Calc LAB L501.1255 ml/min Normal Estimated CRCL 95.64 LAB L501.1300 10-20 RATIO Normal BUN/CRE 11.4 LAB L501.2200 8.5-10 mg/dL Low .1 CA 8.1 LAB L501.5300 136-14 mmol/L Normal 5 NA 136 LAB L501.5600 3.5-5. mmol/L Normal 1 K 3.7 LAB L501.5900 98-107 mmol/L Normal CL 105 LAB L501.6100 21.0-3 mmol/L Normal 2.0 CO2 22.0 LAB L501.6200 5-15 Normal GAP 9 Performed By: #### L500.2500, L501.4010 #### [facility] [address] [place], [place], [address] TROPONIN-I Collected: 05/08/2018 Status: F Source: [place] 10:15 AM [facility] REPOSITORY TYPE CODE TESTS RESULT OUT OF RANGE REFERENCE UNITS LAB L501.4010 <0.045 ng/mL Normal < 0.015 TROPONIN-I Result Comment: TROPONIN-I EXPECTED VALUES <0.045 Negative 0.045 - 0.590 Consistent with Cardiac Damage > OR = 0.600 Critical Value Not every elevated troponin is indicative of OK. These values should be used with clinical judgement in examining the patient's clinical picture for diagnosis. To establish a diagnosis of OK versus myocardial injury, there must be a demonstrated rise and/or fall in the troponin values, in addition to ischemic symptoms, EKG changes, new regional wall motion abnormality, and/or angiographical evidence. PLEASE NOTE: REFERENCE RANGES EDITED 17 Performed By: #### L500.2500, L501.4010 #### [facility] [address] [place], [address] LACTIC ACID Collected: 05/08/2018 Status: F Source: [place] 10:15 AM [facility] REPOSITORY Order Comment: Yes/No query for Sepsis Lactate Rule Y TYPE CODE TESTS RESULT OUT OF RANGE REFERENCE UNITS LAB L503.6005 0.4-2.0 mmol/L Normal LACTIC ACID 0.6 Performed By: #### L503.6005 #### [facility] [address] [place], [address] ,SERUM,HCG QUALI. Collected: Status: F Source: [place] 05/08/2018 10:15 AM [facility] REPOSITORY TYPE CODE TESTS RESULT OUT OF REFERENCE UNITS RANGE LAB L700.6700 =>Qualitative mIU/mL Normal HCG Qual < 1 triggr LAB L700.7000 0-9 Nonpreg Negative Normal HCGSQUAL NEGATIVE Performed By: #### L700.6800 #### [facility] [address] [place], [address] Observed: 05/08/2018 Status: F Source: [place] CULTURE, BLOOD (WB) 10:15 AM [facility] REPOSITORY BC No growth in 5 days. Performed By: #### M200.1000 #### [facility] [address] [place], [address] URINALYSIS, COMPLETE Collected: 05/08/2018 Status: F Source: [place] 10:05 AM [facility] REPOSITORY Order Comment: Order Date: 05/08/18 How was Urine Obtained? SUPERVISOR [employer] TO SPECIFY TYPE CODE TESTS RESULT OUT OF RANGE REFERENCE UNITS LAB L400.3000 Yellow COLOR Normal Yellow LAB L400.3050 Clear Normal CLARITY Sl. Cloudy LAB L400.3200 Normal mg/dl Normal GLUCOSE, UR Normal LAB L400.3300 Negative mg/dL Normal BILIRUBIN URINE Negative LAB L400.3400 Negative mg/dl High KETONE UR 150 Result Comment: CRITICAL VALUE *H CRITICAL VALUE VERIFIED. [facility] Gloria Lindquist. RESULTS READ BACK BY SAME . LAB L400.3465 1.002-1.030 Normal SP.GR. DIPSTX 1.010 LAB L400.3550 5.0 - 8.0 pH Normal UR 8.0 LAB L400.3600 Negative mg/dl High PROT DIPSTX 100 LAB L400.3700 Normal mg/dl High 1 UROBILI LAB L400.3750 Negative Normal NITRITE UR Negative LAB L400.3780 Negative /ul High 50 OCCULT BLOOD-UR LAB L400.3800 Negative /ul High 25 LEUK ESTERASE LAB L400.4050 0-5 /hpf Normal WBC 0-5 SEEN LAB L400.4100 0-5 /hpf Normal RBC-UA 0-5 SEEN LAB L400.4150 5-10 /hpf Normal SQUAM EPI 0-5 SEEN LAB L400.4300 None Seen /hpf 2+ Normal BACTERIA LAB L400.4350 <or=2+ /hpf 0 Normal MUCUS, URINE SEEN Performed By: #### L400.0001 #### [facility] [address] [place], [address] Observed: 05/08/2018 Status: F Source: [place] CULTURE, URINE 10:05 AM [facility] REPOSITORY Order Date: 05/08/18 Urine Culture ORGANISM 1: Mixed Gram Positive Organisms [place] Count 1000-10,000 MIX CULTURE Mixed contaminants. Submit a new specimen if indicated. Performed By: #### M100.0650 #### [facility] [place], [address] Observed: 05/08/2018 Status: F Source: [place] STREP A (THROAT 9:40 AM [facility] RAPID SUSAN) REPOSITORY Order Date: 05/08/18 Strep A Rapid Rapid Strep A Screen NEGATIVE A Disk (Conf. Cult) Negative for Strep Group A : All NEGATIVE screens will be confirmed with a culture. Performed By: #### M100.676 #### [facility] [address] [place], [address] Observed: 05/08/2018 Status: F Source: [place]EE RSV AG (RAPID SUSAN) 9:20 AM [facility] REPOSITORY RSV Ag (SUSAN) Normal Reference Range = Negative RSV Ag NEGATIVE Performed By: #### M100.6601 #### [facility] [address] [place], [address] Observed: 05/08/2018 Status: F Source: [place] INFLUENZA A+B (RAPID 9:20 AM [facility] SUSAN) REPOSITORY FLU A/B Rapid Negative test results should be confirmed by culture. Order Rapid Viral Culture for Influenzae A+B ([id number]) if clinically indicated. Influenza Ag, Direct Presumptive NEGATIVE for Influenza A/B Antigen (See Note)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 function, To improve ability to perform ADL's, To increase tolerance to activity/condition/position, To improve ability of physical actions for home/community/work/leisure, To increase flexibility/ROM, To improve endurance Therapeutic Exercise to Include: Strength training, Power training, Endurance training, Balance training, Coordination, Body mechanics, Postural training, Flexibilty training, Gait and locomotor training, Passive ROM, Active ROM, Dynamic Lumbar Stabilization, Marcello Exercises For the Purpose of:: To decrease pain, To increase ROM, To improve muscle performance and motor function, To improve ability to perform ADL's, To increase tolerance to activity/condition/position, To improve ability of physical actions for home/community/work/leisure, To increase flexibility/ROM, To improve endurance, To improve balance, To improve safety with gait TENS: Yes Cryotherapy (ice pack, ice massage): No Thermo therapy (hot pack): Yes For the Purpose of:: To decrease pain Thank you for the opportunity to evaluate your patient. For Medicare and Medicare HMO plans, please review the plan of care and approve it. It will need to be FAXED BACK to us at [phone] for Medicare purposes. Please let me know if there are questions or concerns regarding this plan of care. Physician Signature: Date: <Electronically signed by Joi Chandler DPT> 04/27/18 1303 CC: Kennedy Gipson MD; Francine CARVER [facility] ELR Signed For Medicare only, by signing this I certify the plan of care. Physicians Signature Date PROGRESS Observed: 04/09/2018 Status: COMPLETED Source: [facility] 2:16 PM [facility] REPOSITORY HNO ID: [id number] Author: Mik Angulo Service: (none) Author Type: Physician Type: Progress Notes Filed: 04/09/2018 4:59 PM Note Text: Mik Angulo MD Department of Orthopaedics Orthopaed[facility] [address] [facility] [address] Dept: [phone] Dept April 09, 2018 CHIEF COMPLAINT: Established Patient (Right knee pain, last seen 11/06/17 Right wrist pain, XRay at [facility] ) Ms. 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 She has 8 out of 10 discomfort, limping a bit. ASSESSMENT: S86.819A Strain of calf muscle, initial encounter (primary encounter diagnosis) PLAN: looks like she may have strained her heel gastroc, as well as just having some sore anterior tibialis from playing soccer. Symptomatic relief. Follow up as needed. OBJECTIVE: Ms. Fernando Rousseau is a pleasant 22 year old in no apparent distress. Gen:LMP 03/15/2018 nl development, non obese, no deformities ENT: Normocephalic, normal hearing, moist mucosa CV: Pulses:DP/PT= 2+ and symmetric, capillary refill < 2 secs, no peripheral edema/varicosities Skin: no rash, bruising or lesions. Good turgor. Psych: cooperative and appropriate, alert and oriented x 3, good mood and affect. Musculoskeletal: patient does walk with some mild antalgia, tenderness at the medial gastroc and posteriorly. Mild limitations with resisted dorsiflexion of the ankle. The knee has no effusion. No bruising. Stable knee exam. Imagin views of the right knee from outside facility were reviewed and show post operative changes without any acute process. Supporting Subjective Information Below: Past Surgical History: PAST SURGICAL HISTORY Procedure Laterality Date - COLONOSCOP W/ OR W/O [facility] SPEC 06/12/2017 Colonoscopy [facility] - normal - Bx negative - EGD W/O OR W/BRUSH/WASH 06/12/2017 EGD - duodenitis, gastritis, superfical gastric ulcers, - EXTRACTION ERUPTED TOOTH/EXR Right - KNEE SCOPE,AID ANT CRUCIATE REPAIR Right 01/27/2017 Right knee arthroscopic ACL reconstruction with hamstring autograft and medial menisectomy - TUBAL LIGATION HX Medications: Current Outpatient Prescriptions: Norethin Chinmay-Eth Estrad-FE (LOESTRIN FE 1.530) 1.5 mg-30 mcg (21)/75 mg (7) tablet Take 1 tablet by mouth once daily. traMADol (ULTRAM) 50 mg tablet doxycycline hyclate (VIBRAMYCIN) 100 mg capsule topiramate (TOPAMAX) 50 mg tablet Take 1 tablet by mouth twice daily. 28 mg iron- 800 mcg tab TAKE 1 TABLET DAILY famotidine (PEPCID) 40 mg tablet TAKE 1 TABLET DAILY medroxyPROGESTERone (PROVERA) 10 mg tablet Take 1 tablet by mouth once daily. Take days 17-21. gabapentin (NEURONTIN) 100 mg capsule Take 100 mg by mouth twice daily. naproxen (NAPROSYN) 250 mg tablet Take 250 mg by mouth twice daily with meals. cyclobenzaprine (FLEXERIL) 10 mg tablet Take 1 tablet by mouth three times daily as needed. NO122/IRON/FOLIC ACID ( MULTI ORAL) Take by mouth. aspirin, enteric coated (ASPIRIN, ENTERIC COATED) 81 mg EC tablet TAKE (1) TABLET BY MOUTH ONCE DAILY PROAIR HFA 90 mcg/actuation inhaler INHALE TWO (2) PUFFS BY MOUTH EVERY 4 HOURS NEEDED DIRECTED fluticasone (FLOVENT) 110 mcg/actuation inhaler Inhale 2 Puffs as instructed twice daily. No current facility-administered medications for this visit. Allergies: Clindamycin; Dicyclomine; Flagyl [Metronidazole Hcl]; Keflex [Cephalexin]; Mobic [Meloxicam]; Penicillin; Procardia [Nifedipine]; Progesterone Aqueous; Sulfa (Sulfonamide Antibiotics); Terbutaline; Tessalon [Benzonatate] ROS: General (negative for fatigue, malaise, weight loss/gain) HEENT (negative for headache, earache, recent vision changes, sinus pain, sore throat) Respiratory (no recent shortness of breath, hemoptysis) CV (negative for chest tightness, palpitations) Musculoskeletal (see HPI) Psych (no depression, anxiety) This note was partially generated using [employer] voice recognition system, and there may be some incorrect words, spellings, and punctuation that were not noted in checking the note before saving. Mik Angulo MD PROGRESS Observed: 04/09/2018 Status: COMPLETED Source: [place] 1:45 PM [facility] REPOSITORY O ID: [id number] Author: Antonietta Ariza) INGA Flores Service: (none) Author Type: Registered Nurse Type: Progress Notes Filed: 04/09/2018 4:59 PM Note Text: AMB ROOMING INTAKE FLOWSHEET DATA Risk Screening Do you have concerns about personal safety or safety in the home?: Yes. 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 She is unable to squat and kneel. She went to [facility] on 04/03/18 and xrays were completed. She has pain in posterior, lateral and medial part of knee and going down to foot. She has tried numerous medications. Patient also notes she has a restraining order against her . Antonietta Flores RN CNOV Observed: 04/09/2018 Status: COMPLETED Source: [place] 1:25 PM [facility] Office Visit (KIM) FERNANDO ROUSSEAU ([id number]) 1995 F Date Time Provider Department 04/09/18 1:25 PM MIK ANGULO During your visit today, we recorded the following information about you: Antonietta Flores RN, RN 04/09/2018 4:59 PM Signed AMB ROOMING INTAKE FLOWSHEET DATA Risk Screening Do you have concerns about personal safety or safety in the home?: Yes. 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 She is unable to squat and kneel. She went to [facility] on 04/03/18 and xrays were completed. She has pain in posterior, lateral and medial part of knee and going down to foot. She has tried numerous medications. Patient also notes she has a restraining order against her . INGA Oh MD 04/09/2018 4:59 PM Signed Mik Angulo MD Department of Orthopaedics Orthopaedics [address] [facility] [address] Dept: [phone] Dept April 09, 2018 CHIEF COMPLAINT: Established Patient (Right knee pain, last seen 11/06/17 Right wrist pain, XRay at [facility] ) Ms. 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 She has 8 out of 10 discomfort, limping a bit. ASSESSMENT: S86.819A Strain of calf muscle, initial encounter (primary encounter diagnosis) PLAN: looks like she may have strained her heel gastroc, as well as just having some sore anterior tibialis from playing soccer. Symptomatic relief. Follow up as needed. OBJECTIVE: Ms. Frenando Rousseau is a pleasant 22 year old in no apparent distress. Gen:LMP 03/15/2018 nl development, non obese, no deformities ENT: Normocephalic, normal hearing, moist mucosa CV: Pulses:DP/PT= 2+ and symmetric, capillary refill < 2 secs, no peripheral edema/varicosities Skin: no rash, bruising or lesions. Good turgor. Psych: cooperative and appropriate, alert and oriented x 3, good mood and affect. Musculoskeletal: patient does walk with some mild antalgia, tenderness at the medial gastroc and posteriorly. Mild limitations with resisted dorsiflexion of the ankle. The knee has no effusion. No bruising. Stable knee exam. Imagin views of the right knee from outside facility were reviewed and show post operative changes without any acute process. Supporting Subjective Information Below: Past Surgical History: PAST SURGICAL HISTORY Procedure Laterality Date - COLONOSCOP W/ OR W/O [facility] SPEC 06/12/2017 Colonoscopy [facility] - normal - Bx negative - EGD W/O OR W/BRUSH/WASH 06/12/2017 EGD - duodenitis, gastritis, superfical gastric ulcers, - EXTRACTION ERUPTED TOOTH/EXR Right - KNEE SCOPE,AID ANT CRUCIATE REPAIR Right 01/27/2017 Right knee arthroscopic ACL reconstruction with hamstring autograft and medial menisectomy - TUBAL LIGATION HX Medications: Current Outpatient Prescriptions: Norethin Chinmay-Eth Estrad-FE (LOESTRIN FE 1.530) 1.5 mg-30 mcg (21)/75 mg (7) tablet Take 1 tablet by mouth once daily. traMADol (ULTRAM) 50 mg tablet doxycycline hyclate (VIBRAMYCIN) 100 mg capsule topiramate (TOPAMAX) 50 mg tablet Take 1 tablet by mouth twice daily. 28 mg iron- 800 mcg tab TAKE 1 TABLET DAILY famotidine (PEPCID) 40 mg tablet TAKE 1 TABLET DAILY medroxyPROGESTERone (PROVERA) 10 mg tablet Take 1 tablet by mouth once daily. Take days 17-21. gabapentin (NEURONTIN) 100 mg capsule Take 100 mg by mouth twice daily. naproxen (NAPROSYN) 250 mg tablet Take 250 mg by mouth twice daily with meals. cyclobenzaprine (FLEXERIL) 10 mg tablet Take 1 tablet by mouth three times daily as needed. NO122/IRON/FOLIC ACID ( MULTI ORAL) Take by mouth. aspirin, enteric coated (ASPIRIN, ENTERIC COATED) 81 mg EC tablet TAKE (1) TABLET BY MOUTH ONCE DAILY PROAIR HFA 90 mcg/actuation inhaler INHALE TWO (2) PUFFS BY MOUTH EVERY 4 HOURS NEEDED DIRECTED fluticasone (FLOVENT) 110 mcg/actuation inhaler Inhale 2 Puffs as instructed twice daily. No current facility-administered medications for this visit. Allergies: Clindamycin; Dicyclomine; Flagyl [Metronidazole Hcl]; Keflex [Cephalexin]; Mobic [Meloxicam]; Penicillin; Procardia [Nifedipine]; Progesterone Aqueous; Sulfa (Sulfonamide Antibiotics); Terbutaline; Tessalon [Benzonatate] ROS: General (negative for fatigue, malaise, weight loss/gain) HEENT (negative for headache, earache, recent vision changes, sinus pain, sore throat) Respiratory (no recent shortness of breath, hemoptysis) CV (negative for chest tightness, palpitations) Musculoskeletal (see HPI) Psych (no depression, anxiety) This note was partially generated using [employer] voice recognition system, and there may be some incorrect words, spellings, and punctuation that were not noted in checking the note before saving. Mik Angulo MD Referring Provider: SELF [[id number]] Allergies As of Date: 04/09/2018 Noted Allergy Reaction CLINDAMYCIN 10/22/2015 4 - Hives 12 - Shortness of Breath DICYCLOMINE 05/25/2017 9 - Itching FLAGYL (METRONIDAZOLE HCL) 11/01/2017 9 - Itching KEFLEX (CEPHALEXIN) 10/13/2016 10 - Anaphylaxis MOBIC (MELOXICAM) 12/20/2017 14 - Other: See Comments Comments: Chest pain PENICILLIN 10/22/2015 4 - Hives Comments: Per pt anything in the penicillin family she is allergic to PROCARDIA (NIFEDIPINE) 10/22/2015 4 - Hives Comments: Hives and seizures per pt PROGESTERONE AQUEOUS 10/13/2016 2 - Rash Comments: Progesterone cream only SULFA (SULFONAMIDE ANTIBIOTICS) 01/02/2017 4 - Hives TERBUTALINE 10/22/2015 4 - Hives Comments: Per pt has hives and seizures TESSALON (BENZONATATE) 01/01/2018 2 - Rash Date Reviewed: 04/09/2018 Reviewed by: Mik Angulo - Fully Assessed Reason for Visit: Established Patient [175] Cmt: Right knee pain, last seen 11/06/17 Right wrist pain, XRay at [facility] Primary Visit Diagnosis:Strain of calf muscle, initial encounter [S86.345Q] Order(s):etodolac (LODINE) 300 mg capsuleTake 1 capsule by mouth every 8 hours.Disp: 30 capsuleRfl: 0 Prescriptions as of 04/09/2018 Sig: ETODOLAC 300 MG CAPSULE Take 1 capsule by mouth every* NORETHINDRONE 1.5 MG-ETHINYL * Take 1 tablet by mouth once d* TRAMADOL 50 MG TABLET DOXYCYCLINE HYCLATE 100 MG CA* TOPIRAMATE 50 MG TABLET Take 1 tablet by mouth twice * 28 MG IRON-800 MCG T* TAKE 1 TABLET DAILY FAMOTIDINE 40 MG TABLET TAKE 1 TABLET DAILY MEDROXYPROGESTERONE 10 MG TAB* Take 1 tablet by mouth once d* GABAPENTIN 100 MG CAPSULE Take 100 mg by mouth twice da* CYCLOBENZAPRINE 10 MG TABLET Take 1 tablet by mouth three * MULTI ORAL Take by mouth. 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 with care elsewhere, antepar*INVALID FOR*12/27/2016 More... History of labor, current [O0*INVALID FOR*12/27/2016 More... History of labor [Z87.51] INVALID FOR*12/27/2016 More... UTI (urinary tract infection) in , ant*INVALID FOR*12/27/2016 More... History of depression [Z87.59, Z86.5*INVALID FOR*12/27/2016 History of depression [Z86.59] INVALID FOR* More... Custody issue [Z65.3] INVALID FOR*12/27/2016 More... Tobacco use during , antepartum [O99.3*INVALID FOR*12/27/2016 More... History of drug abuse [Z87.898] INVALID FOR* More... History of seizures [Z87.898] INVALID FOR*01/25/2017 More... H/O pre-eclampsia in prior , currently*INVALID FOR*12/27/2016 Family history of defects [Z82.79] INVALID FOR*01/25/2017 More... Family history of genetic disease [Z84.89] INVALID FOR*01/25/2017 More... Short interval between pregnancies affecting pr*INVALID FOR*12/27/2016 Poor historian [Z78.9] INVALID FOR* More... PTSD (post-traumatic stress disorder) [F43.10] Polysubstance abuse [F19.10] More... Migraines [G43.909] Asthma [J45.909] Anxiety [F41.9] Seizure (HCC) [R56.9] INVALID FOR* More... GERD (gastroesophageal reflux disease) [K21.9] INVALID FOR* Prescriptions ordered this encounter Disp Refills Start End ETODOLAC 300 MG CAPSULE 30 c* 0 04/09/2018 Route: ORAL Sig: Take 1 capsule by mouth every 8 hours. Medications Discontinued During This Encounter aspirin, enteric coated (ASPIRIN, EN* 123 * 11 09/04/2017 04/09/2018 Sig: TAKE (1) TABLET BY MOUTH ONCE DAILY Disc: Course of therapy completed naproxen (NAPROSYN) 250 mg tablet 04/09/2018 Class: Historical Med Route: ORAL Sig: Take 250 mg by mouth twice daily with meals. Disc: Course of therapy completed Encounter Status:Closed by MIK ANGULO MD on 04/09/18 CNOV Observed: 04/05/2018 Status: COMPLETED Source: [place] 1:30 PM [facility] Office Visit (GYNMN) FERNANDO ROUSSEAU ([id number]) 1995 F Date Time Provider Department 04/05/18 1:30 PM CLARIBEL PLATT GYNMN During your visit today, we recorded the following information about you: Blood pressure Weight Height Last Period 102/60 64.8 kg 1.632 m 03/15/18 Claribel Platt MD 04/05/2018 5:25 PM Signed CHRONIC PELVIC PAIN FOLLOW UP VISIT Fernando Rousseau is a 22 year old female who presents for continued management of chronic pelvic pain. HISTORY SINCE LAST VISIT: Patient states she has not been able to go to PFPT yet. She has an appointment scheduled. Patient states the injections helped her for a couple of days last time. Patient has been bleeding heavily for 3 weeks and has been in pain. Intensity of pain: severe Average Pain level: 7 on a scale of 0-10 Emergency room visits for pain since last visit: none Level of physical activity and mobility: low Quality of sleep: poor Mood: fair Side effects of medications for pain: patient states her valium would cause more pain. I saw her 12/2017, at the time, she hadnt bled for several months, given provera challenge, no bleeding Then combination estrace pills/provera. Bled 3 days before finished. Then stopped 2 wks then rebled 03/19 to current Still bleeding Tl for contraception Has noticed vaginal dryness when sexually active w/ previous and current partne.r Sex drive is very high Has to use astroglide AND still gets dry Stress has been high W/ new partner January 2018, ex partner, is in half-way, has blueberry grower against him Notes from last visit 01/11/[address] Lc MD: ASSESSMENT ? Encounter Diagnosis ? ? ICD-10-CM ? 1. Trigger point of abdomen R10.9 TRIGGER POINT INJECTION MULTI 1-2 MUSCLE GR 2. Chronic pelvic pain in female R10.2 ? ? G89.29 ? 3. Secondary amenorrhea N91.1 medroxyPROGESTERone (PROVERA) 10 mg tablet 4. Myofascial pain M79.1 diazePAM (VALIUM) 5 mg tablet ? ? ? PLAN ? abd and B vaginal wall tpi done Will find new PFPT in area. Names given Her current therapist doesn't take caresource Amenorrhea, normal labs. Appears to be anovulatory --provera now. ? Follow up in 1 month Claribel Platt MD SUBJECTIVE ROS OBJECTIVE BP 102/60 Ht 5' 4.25 (1.63m) Wt 142 lb 14.4 oz (64.8kg) LMP 03/15/2018 BMI 24.34 kg/(m2). PHYSICAL EXAMINATION: Physical Exam Genitourinary: Genitourinary Comments: hcg neg ASSESSMENT Encounter Diagnosis ICD-10-CM 1. Menorrhagia with irregular cycle N92.1 Norethin Chinmay-Eth Estrad-FE (LOESTRIN FE 1.5/30) 1.5 mg-30 mcg (21)/75 mg (7) tablet HCG QUAL UR B/O She has h/o anovulation bleeding Vaginal dryness with high libido PLAN 1. Change to control pill , loestrin .12/20, to regulate cycles (has TL for contraception) 2. This might helpthe vaginal dryness Consider adding vaginal estrogen Follow up in 2 month Claribel Platt MD Referring Provider: CLARIBEL PLATT [[id number]] Allergies As of Date: 04/05/2018 Noted Allergy Reaction CLINDAMYCIN 10/22/2015 4 - Hives 12 - Shortness of Breath DICYCLOMINE 05/25/2017 9 - Itching FLAGYL (METRONIDAZOLE HCL) 11/01/2017 9 - Itching KEFLEX (CEPHALEXIN) 10/13/2016 10 - Anaphylaxis MOBIC (MELOXICAM) 12/20/2017 14 - Other: See Comments Comments: Chest pain PENICILLIN 10/22/2015 4 - Hives Comments: Per pt anything in the penicillin family she is allergic to PROCARDIA (NIFEDIPINE) 10/22/2015 4 - Hives Comments: Hives and seizures per pt PROGESTERONE AQUEOUS 10/13/2016 2 - Rash Comments: Progesterone cream only SULFA (SULFONAMIDE ANTIBIOTICS) 01/02/2017 4 - Hives TERBUTALINE 10/22/2015 4 - Hives Comments: Per pt has hives and seizures TESSALON (BENZONATATE) 01/01/2018 2 - Rash Date Reviewed: 04/05/2018 Reviewed by: Wander Amaral Ma - Fully Assessed Reason for Visit: Established Patient [175] Cmt: heavy bleeding and pain Primary Visit Diagnosis:Menorrhagia with irregular cycle [N92.1] Order(s):Norethin Chinmay-Eth Estrad-FE (LOESTRIN FE .12/20) 1.5 mg-30 mcg (21)/75 mg (7) tabletTake 1 tablet by mouth once daily.Disp: 3 PackageRfl: 2 HCG QUAL UR B/O [[id number]] Order #: [id number] Prescriptions as of 04/05/2018 Sig: TRAMADOL 50 MG TABLET DOXYCYCLINE HYCLATE 100 MG CA* TOPIRAMATE 50 MG TABLET Take 1 tablet by mouth twice * 28 MG IRON-800 MCG T* TAKE 1 TABLET DAILY FAMOTIDINE 40 MG TABLET TAKE 1 TABLET DAILY MEDROXYPROGESTERONE 10 MG TAB* Take 1 tablet by mouth once d* GABAPENTIN 100 MG CAPSULE Take 100 mg by mouth twice da* NAPROXEN 250 MG TABLET Take 250 mg by mouth twice da* CYCLOBENZAPRINE 10 MG TABLET Take 1 tablet by mouth three * MULTI ORAL Take by mouth. 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 with care elsewhere, antepar*INVALID FOR*12/27/2016 More... History of labor, current [O0*INVALID FOR*12/27/2016 More... History of labor [Z87.51] INVALID FOR*12/27/2016 More... UTI (urinary tract infection) in , ant*INVALID FOR*12/27/2016 More... History of depression [Z87.59, Z86.5*INVALID FOR*12/27/2016 History of depression [Z86.59] INVALID FOR* More... Custody issue [Z65.3] INVALID FOR*12/27/2016 More... Tobacco use during , antepartum [O99.3*INVALID FOR*12/27/2016 More... History of drug abuse [Z87.898] INVALID FOR* More... History of seizures [Z87.898] INVALID FOR*01/25/2017 More... H/O pre-eclampsia in prior , currently*INVALID FOR*12/27/2016 Family history of defects [Z82.79] INVALID FOR*01/25/2017 More... Family history of genetic disease [Z84.89] INVALID FOR*01/25/2017 More... Short interval between pregnancies affecting pr*INVALID FOR*12/27/2016 Poor historian [Z78.9] INVALID FOR* More... PTSD (post-traumatic stress disorder) [F43.10] Polysubstance abuse [F19.10] More... Migraines [G43.909] Asthma [J45.909] Anxiety [F41.9] Seizure (HCC) [R56.9] INVALID FOR* More... GERD (gastroesophageal reflux disease) [K21.9] INVALID FOR* Prescriptions ordered this encounter Disp Refills Start End NORETHINDRONE 1.5 MG-ETHINYL ESTRADI* 3 Pa* 2 04/05/2018 Route: ORAL Sig: Take 1 tablet by mouth once daily. Medications Discontinued During This Encounter estrogens conjugated (PREMARIN) 1.25* 21 t* 0 02/20/2018 04/05/2018 Route: ORAL Sig: Take 1 tablet by mouth once daily for 21 days. Patient not taking: Reported on 03/09/2018 Disc: Reason for discontinue is not on file. Pseudoephedrine HCl (SUDAFED 12 HOUR* 30 t* 0 01/01/2018 04/05/2018 Route: ORAL Sig: Take 1 tablet by mouth every 12 hours. Disc: Reason for discontinue is not on file. Encounter Status:Closed by CLARIBEL PLATT MD on 04/05/18 PROGRESS Observed: 04/05/2018 Status: COMPLETED Source: [place] 10:58 AM [facility] [place] REPOSITORY [facility] ID: [id number] Author: Claribel Platt Service: (none) Author Type: Physician Type: Progress Notes Filed: 04/05/2018 5:25 PM Note Text: CHRONIC PELVIC PAIN FOLLOW UP VISIT Fernando Rousseau is a 22 year old female who presents for continued management of chronic pelvic pain. HISTORY SINCE LAST VISIT: Patient states she has not been able to go to [facility] yet. She has an appointment scheduled. Patient states the injections helped her for a couple of days last time. Patient has been bleeding heavily for 3 weeks and has been in pain. Intensity of pain: severe Average Pain level: 7 on a scale of 0-10 Emergency room visits for pain since last visit: none Level of physical activity and mobility: low Quality of sleep: poor Mood: fair Side effects of medications for pain: patient states her valium would cause more pain. I saw her 12/2017, at the time, she hadnt bled for several months, given provera challenge, no bleeding Then combination estrace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 (irritable bowel syndrome) Status: Chronic (6) Seizures Status: Chronic (7) Stomach ulcer Status: Chronic (8) Asthma Status: Chronic (9) Deafness in left ear Status: Chronic (10) Migraines Status: Chronic Past Medical History - Allergies and Home Meds Allergies/Adverse Reactions: Allergies adhesive tape Allergy (Severe, Verified 02/17/18 18:53) Rash latex Allergy (Severe, Verified 02/17/18 18:53) Rash cephalexin [From Keflex] Allergy (Verified 02/17/18 18:53) Hives clindamycin Allergy (Verified 02/17/18 18:53) Anaphylaxis dicyclomine [From Bentyl] Allergy (Verified 02/17/18 18:53) Itching meloxicam [From Mobic] Allergy (Verified 02/17/18 18:53) Chest tightness nifedipine [From Procardia] Allergy (Verified 02/17/18 18:53) Angioedema Penicillins Allergy (Verified 02/17/18 18:53) Anaphylaxis progesterone Allergy (Verified 02/17/18 18:53) Hives -cream form only Sulfa (Sulfonamide Antibiotics) Allergy (Verified 02/17/18 18:53) Hives terbutaline [From Brethine] Allergy (Verified 02/17/18 18:53) Angioedema ondansetron [From Zofran (as hydrochloride)] Adverse Reaction (Verified 02/17/18 18:53) Other PT STATES IT MAKES ME CONSTIPATED Primary Care Physician: Vega Gandhi MD [STAFF PHYSICIAN] - Smoking Status: Current every day smoker Drugs: None Review of Systems All systems negative except as indicated General: Reports: Fever, Malaise Gastrointestinal: Reports: Nausea Neurological: Reports: Headache, - - orthostatic lightheadedness / near-syncope. Denies: Weakness, Numbness Psych: Reports: Depression, Anxiety. Denies: Suicidal thoughts Physical Exam Vital Signs/Narrative: Vital Signs 02/17/18 17:57 99.1 F 115 H 16 125/70 H Inital Vital Signs reviewed: Yes General: Well nourished, Well developed, - - well-appearing, nad Head: Normocephalic, Atraumatic Eyes: Perrl, EOMI ENT: Moist mucous membranes, No rhinorrhea, TM's clear. Negative for: Nasal congestion, Sinus tenderness Neck: Supple, Nontender, No lymphadenopathy, - - from. no meningismus. Cardiovascular: Regular rate, Regular rhythm, No murmurs Respiratory: No distress, CTA bilaterally, Chest nontender Abdomen: Soft, Nontender, Nondistended, Normal bowel sounds Back: Nontender, Normal Inspection. Negative for: CVA tenderness Extremities: Nontender, No edema Skin: Normal color, No rash Neurological: Alert, Oriented x3, Cranial nerves II-XII grossly intact, Normal Strength, Normal Sensation Psychological: - - frustrated Diagnostic/Tx/Re-eval Laboratory Results - Medical Decision Making Patient is orthostatic when she stands, she was given a liter of fluid and this helped significantly. Her labs are unremarkable. After being given Toradol and Reglan her headache is much better. Her nausea is better as well. Her symptoms are vague, may be consistent with a virus. Advised to follow-up, stay well-hydrated, given a prescription for Reglan, she is comfortable with that plan. ED Disposition - Plan for ED Patient: Disposition: Home or Assisted Living Chief Complaint: General Illness Diagnosis: Orthostatic lightheadedness, Migraine headache, Fever and chills Prescriptions: Metoclopramide [Reglan] 10 mg PO Q6H PRN #12 tab PRN Reason: nausea/headache Referrals: Vega Gandhi MD [STAFF PHYSICIAN] - 3-5 Days if not improving What to do if you have Problems For any increased pain, shortness of breath, bleeding, nausea or vomiting, chest pain, or any unexpected problems, contact your Primary Care Provider. Call [facility] ([phone]) or report to the closest Emergency Room. Call 911 if necessary. 02/17/184 <Electronically signed by Mik Parada MD> Date Mik Parada MD Cosigner Signature (If Indicated): Date CC: Kennedy Gipson MD CBC W/DIFF, AUTOMATED Collected: 02/17/2018 Status: F Source: [place] 6:52 PM [facility] REPOSITORY TYPE CODE TESTS RESULT OUT OF RANGE REFERENCE UNITS LAB L100.1000 4.4-11.0 K/mm3 Normal WBC 7.5 LAB L100.1200 4.2-5.4 M/mm3 Normal RBC 4.57 LAB L100.1300 12.0-15.0 g/dl Normal HGB 13.1 LAB L100.1400 37-47 % Normal HCT 38.8 LAB L100.1500 81-99 fL Normal MCV 84.9 LAB L100.1600 27.0-32.0 pg Normal MCH 28.7 LAB L100.1700 32-36 g/gl Normal MCHC 33.8 LAB L100.1810 11.6-14.6 % Normal RDW CV 11.9 LAB L100.1820 35.1-43.9 fl Normal RDW SD 36.1 LAB L100.1900 150-450 K/mm3 Normal PLT 295 LAB L100.2000 6.2-12.0 fl Normal MPV 10.6 LAB L100.2100 47-70 % Normal NEUT% 55.4 LAB L100.2200 19-41 % Normal LY% 31.3 LAB L100.2300 0-10 % Normal MONO% 7.5 LAB L100.2400 0-5 % Normal EO% 4.3 LAB L100.2500 0-1 % High BASO% 1.2 LAB L100.2550 0.0-0.9 % Normal IM GRAN % 0.300 Result Comment: IG% - Immature Granulocytes (promyelocytes, myelocytes and metamyelocytes) > 1% indicates that a LEFT SHIFT is Present. LAB L100.2620 2.0-7.7 X10 3/uL Normal Absolute Neut 4.2 LAB L100.2720 0.83-4.51 X10 3/ul Normal Absolute Lymph 2.34 Performed By: #### L100.0100 #### [facility] [address] [place], [place], [address] BASIC METABOLIC Collected: 02/17/2018 Status: F Source: [place] PROFILE ([facility]) 6:52 PM [facility] REPOSITORY TYPE CODE TESTS RESULT OUT OF RANGE REFERENCE UNITS LAB L501.0100 74-106 mg/dL Normal GLU 94 Result Comment: Please note revised GLUCOSE reference range effective 2017. LAB L501.1000 7-18 mg/dL Normal BUN 13 LAB L501.1100 0.55-1.02 mg/dL Normal CREAT,SERUM 0.86 Result Comment: The validity of the calculated GFR AND GFRAA in patients over 70 years has not been determined. Clinical correlation is essential. LAB L501.1110 >60 mL/min Normal EST GFR 87 Result Comment: Non- GFR Calc LAB L501.1115 >60 mL/min Normal EST GFR - AA 105 Result Comment: GFR Calc LAB L501.1255 ml/min Normal Estimated CRCL 87.85 LAB L501.1300 10-20 RATIO Normal BUN/CRE 15.2 LAB L501.2200 8.5-10 mg/dL Normal .1 CA 9.4 LAB L501.5300 136-14 mmol/L Normal 5 NA 140 LAB L501.5600 3.5-5. mmol/L Normal 1 K 3.8 LAB L501.5900 98-107 mmol/L High CL 108 LAB L501.6100 21.0-3 mmol/L Normal 2.0 CO2 27.0 LAB L501.6200 5-15 Normal GAP 5 Performed By: #### L500.2500 #### [facility] [address] [place], [address] CNCO Observed: 02/01/2018 Status: COMPLETED Source: [place] 12:00 AM [facility] [place] REPOSITORY Letter Text Claribel Platt MD Appointments: [phone] February 01, 2018 Fernando Rousseau [address] [facility] [address] CLINIC NO: [id number] Dear Ms. Wilmar Rousseau: We have been unable to reach you as your phone [phone] does not accept incoming calls. Due to a change in your physician?s schedule, it has been necessary to cancel your appointment on February 09, [address] Claribel Platt. Please call the office to reschedule your appointment . We are sorry for any inconvenience this may cause you. Sincerely, Claribel Platt DOWNTIME REPORT Observed: 01/11/2018 Status: F Source: [place] 11:52 AM [facility] REPOSITORY [facility] Medical Records Department [address] [place] [address] Downtime Report MR#: [id number] Acct: [id number] Name: FERNANDO ROUSSEAU Rep #: [id number] : 1995 22 From: Juni Moore PCP: Vega Gandhi MD Status: REG CLI This patient was seen during an EMR downtime December 25, 2017 - January 01, 2018. This patient may have a combination of paper and electronic documentation or all paper documentation. All documentation is viewable within the e-chart portion of [facility] for each patient visit. CNOV Observed: 01/11/2018 Status: COMPLETED Source: [place] 11:00 AM [facility] REPOSITORY Office Visit (GYNMN) FERNANDO TRAN ([id number]) 1995 F Date Time Provider Department 01/11/18 11:00 AM CLARIBEL PLATT [facility] During your visit today, we recorded the following information about you: Blood pressure Weight Height 108/66 68.9 kg 1.626 m Claribel Platt MD 01/13/2018 12:07 PM Signed CHRONIC PELVIC PAIN FOLLOW UP VISIT Fernando Rousseau is a 22 year old female who presents for continued management of chronic pelvic pain. HISTORY SINCE LAST VISIT: presents today for TPI has only had one PFPT , cannot go back to her. Does have nerve blocks scheduled for 01/21/2018 Flexeril makes her sleepy but does not help her pain Intensity of pain: throbbing Average Pain level: 6 on a scale of 0-10 Emergency room visits for pain since last visit: not ER but urgent care Level of physical activity and mobility: fair Quality of sleep: fair Mood: poor Side effects of medications for pain: none, just tired from flexeril Notes from last visit 12/20/[address] Lc MD: ASSESSMENT Fernando Rousseau is a 22 year old female with Bipolar 1 disorder (hcc) History of depression History of drug abuse Ptsd (post-traumatic stress disorder) Migraine with aura and with status migrainosus, not intractable Anxiety Secondary amenorrhea (primary encounter diagnosis) Trigger point of abdomen Coccygalgia ? Encounter Diagnosis ? ? ICD-10-CM ? 1. Secondary amenorrhea N91.1 PROLACTIN BLD ? ? TSH BLD ? ? FSH BLD ? ? ESTRADIOL-17B BLD ? ? DHEA-S BLD ? ? TESTOSTERONE, FREE AND TOTAL 2. Bipolar 1 disorder (HCC) F31.9 ? 3. History of depression Z86.59 ? 4. History of drug abuse Z87.898 ? 5. PTSD (post-traumatic stress disorder) F43.10 ? 6. Migraine with aura and with status migrainosus, not intractable G43.101 ? 7. Anxiety F41.9 ? 8. Trigger point of abdomen R10.9 TRIGGER POINT INJECTION MULTI 1-2 MUSCLE GR 9. Coccygalgia M53.3 CONSULT TO PAIN MGT ANESTHESIA ? Tailbone fracture 4 years ago, pain worse x 1- 2 years, adb wall AND pelvic floor pain 2ndary amenorrhea ? PLAN ? 1. Amenorrhea, TL for contraception, neg home tests at home --check labs. Consider provera 2. Refer to PFPT , name given Truly Daley P. T> 3. abd wall tpi 4. Pain mgmt, for tailbone injecition 5. Flexeril for pain Having hard time w/ transportation so will work it out. Claribel Platt MD f/u 5 To 6 wks ? <<<Procedure >>> ?? UNIVERSAL PROTOCOL / SAFETY CHECKLIST ?? Procedure to be performed: abdominal trigger point series ?? Sign in Communication: Completed ?? Time Out: Team Confirms the Correct Patient, Correct Procedure, Correct Site and Site Marking, Correct Position (if applicable), Prep and Dry Time (if applicable). Time: 300pm ?? Affirmation of Time Out: YES ?? Sign Out Discussion: Completed ?? PROCEDURE NOTE: <<<Procedure >>> ?? UNIVERSAL PROTOCOL / SAFETY CHECKLIST ?? Procedure to be performed: Abdominal wall trigger point series ?? Sign in Communication: Completed ?? Time Out: Team Confirms the Correct Patient, Correct Procedure, Correct Site and Site Marking, Correct Position (if applicable), Prep and Dry Time (if applicable). Time: 3:00pm ?? Affirmation of Time Out: YES ?? Sign Out Discussion: Completed ?? PROCEDURE NOTE: Area prepped with alcohol swab 10 mL 0.25% bupivicaine mixed in a 10 mL syringe. Skin was prepped in a sterile fashion. 1 Affected area was injected in upper/mid/lower abdominal muscle Groups (10 areas)with 10 mL of the bupivicaine solution using a 22g needle. Patient tolerated the procedure well. ? Patient tolerated procedure well. ?? 0.25% Bupivacaine 10 ML --- lot # [id number] EXP: [id number] ? SUBJECTIVE ROS OBJECTIVE Ht 5' 4 (1.63m) Wt 152 lb (68.9kg) BMI 26.08 kg/(m2). PHYSICAL EXAMINATION: Physical Exam Abdominal: Genitourinary: Genitourinary Comments: Spine tenderness tender L4/5 SI joint neg Leg length - neg ASIS - neg Pubic symphysis tenderness neg Pubic bones neg Abdominal tenderness tender blq Abdominal myofacial trigger points - + carnetts Vaginal Vestibular tenderness neg Rectal tenderness neg Bladder base tenderness neg Uterine position/tenderness A/neg (A=Anteverted, R= retroverted, M= mid-position) Retrocervical tenderness neg Cervical motion tenderness negn Adnexal tenderness neg Pelvic Floor Musculature RIGHT SIDED Pubococcygeus 3 Iliococcygeus 1 Coccygeus 2 Obturator 2 LEFT SIDED Pubococcygeus 3 Iliococcygeus 3 Coccygeus 3 Obturator 3 (Pain Scale 1 to 3, 3= extreme) ASSESSMENT Encounter Diagnosis ICD-10-CM 1. Trigger point of abdomen R10.9 TRIGGER POINT INJECTION MULTI 1-2 MUSCLE GR 2. Chronic pelvic pain in female R10.2 G89.29 3. Secondary amenorrhea N91.1 medroxyPROGESTERone (PROVERA) 10 mg tablet 4. Myofascial pain M79.1 diazePAM (VALIUM) 5 mg tablet PLAN abd and B vaginal wall tpi done Will find new PFPT in area. Names given Her current therapist doesn't take caresource Amenorrhea, normal labs. Appears to be anovulatory --provera now. Follow up in 1 month Claribel Platt MD <<<Procedure >>> ?? UNIVERSAL PROTOCOL / SAFETY CHECKLIST ?? Procedure to be performed: abd and vaginal wall trigger point series ?? Sign in Communication: Completed ?? Time Out: Team Confirms the Correct Patient, Correct Procedure, Correct Site and Site Marking, Correct Position (if applicable), Prep and Dry Time (if applicable). Time: 1100am ?? Affirmation of Time Out: YES ?? Sign Out Discussion: Completed ?? PROCEDURE NOTE: Area prepped with alcohol swab 10 mL 0.25% bupivicaine mixed in a 10 mL syringe. Skin was prepped in a sterile fashion. Lower abd waldl Affected area was injected in 1 muscle Groups with 10 mL of the bupivicaine solution using a 22g needle. Patient tolerated the procedure well. ? Patient tolerated procedure well. Area prepped with baby shampoo. 10 mL 0.25% bupivicaine mixed in a 10 mL syringe. Skin was prepped in a sterile fashion. r vaginal wall Affected area was injected in 1 muscle Groups (3 areas)with 10 mL of the bupivicaine solution using a 22g needle. Patient tolerated the procedure well. ?? 10 mL 0.25 % bupivicaine mixed in a 10 mL syringe. Skin was prepped in a sterile fashion. Left vaginal wall Affected area was injected Into 1 muscle groups (3 areas) with 10 mL of the bupivicaine solution using a 22g needle. Patient tolerated the procedure well. ?? Patient tolerated procedure well. ?? 0.25 % Bupivacaine 10 ML --- lot # [id number] EXP: [id number] Claribel Platt MD 01/11/2018 11:31 AM Signed Take provera 10mg daily x 10 days then you should bleed 2- 3 days after that Referring Provider: SELF [200] Allergies As of Date: 01/11/2018 Noted Allergy Reaction CLINDAMYCIN 10/22/2015 4 - Hives 12 - Shortness of Breath DICYCLOMINE 05/25/2017 9 - Itching FLAGYL (METRONIDAZOLE HCL) 11/01/2017 9 - Itching KEFLEX (CEPHALEXIN) 10/13/2016 10 - Anaphylaxis MOBIC (MELOXICAM) 12/20/2017 14 - Other: See Comments Comments: Chest pain PENICILLIN 10/22/2015 4 - Hives Comments: Per pt anything in the penicillin family she is allergic to PROCARDIA (NIFEDIPINE) 10/22/2015 4 - Hives Comments: Hives and seizures per pt PROGESTERONE AQUEOUS 10/13/2016 2 - Rash Comments: Progesterone cream only SULFA (SULFONAMIDE ANTIBIOTICS) 01/02/2017 4 - Hives TERBUTALINE 10/22/2015 4 - Hives Comments: Per pt has hives and seizures TESSALON (BENZONATATE) 01/01/2018 2 - Rash Date Reviewed: 01/11/2018 Reviewed by: Christianne Linares LPN - Fully Assessed Reason for Visit: Established Patient [175] Primary Visit Diagnosis:Trigger point of abdomen [R10.9] Other Visit Diagnoses:Chronic pelvic pain in female [R10.2, G89.29] Secondary amenorrhea [N91.1] Myofascial pain [M79.1] Order(s):TRIGGER POINT INJECTION MULTI 1-2 MUSCLE GR [[id number]] Order #: [id number] medroxyPROGESTERone (PROVERA) 10 mg tabletTake 1 tablet by mouth once daily.Disp: 10 tabletRfl: 0 diazePAM (VALIUM) 5 mg tablet1 tablet once daily for 30 days. Insert vaginally as neededDisp: 30 tabletRfl: 0 Prescriptions as of 01/11/2018 Sig: GABAPENTIN 100 MG CAPSULE Take 100 mg by mouth twice da* PSEUDOEPHEDRINE ER 120 MG TAB* Take 1 tablet by mouth every * NAPROXEN 250 MG TABLET Take 250 mg by mouth twice da* TOPIRAMATE 50 MG TABLET Take 50 mg by mouth twice alber* CYCLOBENZAPRINE 10 MG TABLET Take 1 tablet by mouth three * MULTI ORAL Take by mouth. ASPIRIN 81 MG TABLET,DELAYED * TAKE (1) TABLET BY MOUTH ONCE* FAMOTIDINE 40 MG TABLET TAKE (1) TABLET BY MOUTH ONCE* PROAIR HFA 90 MCG/ACTUATION A* INHALE TWO (2) PUFFS BY MOUTH* FLUTICASONE 110 MCG/ACTUATION* Inhale 2 Puffs as instructed * MEDROXYPROGESTERONE 10 MG TAB* Take 1 tablet by mouth once d* DIAZEPAM 5 MG TABLET 1 tablet once daily for 30 da* DOXYCYCLINE HYCLATE 100 MG CA* Take 1 capsule by mouth twice* Medication notes this encounter DOXYCYCLINE HYCLATE 100 MG CAPSULE >> Christianne Linares LPN 01/11/2018 10:41 AM >> CHRISTIANNE LINARES LPN [facility] Jan 11, 2018 10:41 AM D/c Problem List As Of Date 01/11/2018 Noted Resolved Seizures (HCC) [R56.9] INVALID FOR*12/27/2016 Previous delivery, antepartum [O09.219] INVALID FOR*12/27/2016 , high-risk [O09.90] INVALID FOR*12/27/2016 Bipolar 1 disorder (HCC) [F31.9] INVALID FOR* Recurrent loss (CODE) [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 with care elsewhere, antepar*INVALID FOR*12/27/2016 More... History of labor, current [O0*INVALID FOR*12/27/2016 More... History of labor [Z87.51] INVALID FOR*12/27/2016 More... UTI (urinary tract infection) in , ant*INVALID FOR*12/27/2016 More... History of depression [Z87.59, Z86.5*INVALID FOR*12/27/2016 History of depression [Z86.59] INVALID FOR* More... Custody issue [Z65.3] INVALID FOR*12/27/2016 More... Tobacco use during , antepartum [O99.3*INVALID FOR*12/27/2016 More... History of drug abuse [Z87.898] INVALID FOR* More... History of seizures [Z87.898] INVALID FOR*01/25/2017 More... H/O pre-eclampsia in prior , currently*INVALID FOR*12/27/2016 Family history of defects [Z82.79] INVALID FOR*01/25/2017 More... Family history of genetic disease [Z84.89] INVALID FOR*01/25/2017 More... Short interval between pregnancies affecting pr*INVALID FOR*12/27/2016 Poor historian [Z78.9] INVALID FOR* More... PTSD (post-traumatic stress disorder) [F43.10] Polysubstance abuse [F19.10] More... Migraines [G43.909] Asthma [J45.909] Anxiety [F41.9] Seizure (HCC) [R56.9] INVALID FOR* More... GERD (gastroesophageal reflux disease) [K21.9] INVALID FOR* Other instructions from your clinician: Take provera 10mg daily x 10 days then you should bleed 2-3 days after that Prescriptions ordered this encounter Disp Refills Start End MEDROXYPROGESTERONE 10 MG TABLET 10 t* 0 01/11/2018 Route: ORAL Sig: Take 1 tablet by mouth once daily. DIAZEPAM 5 MG TABLET 30 t* 0 01/11/2018 02/10/2018 Class: Print RX Route: OTHER Si tablet once daily for 30 days. Insert vaginally as needed Encounter Status:Closed by CLARIBEL PLATT MD on 01/13/18 PROGRESS Observed: 01/10/2018 Status: COMPLETED Source: [place] 11:31 PM [facility] REPOSITORY HNO ID: [id number] Author: Claribel Platt Service: (none) Author Type: Physician Type: Progress Notes Filed: 01/13/2018 12:07 PM Note Text: CHRONIC PELVIC PAIN FOLLOW UP VISIT Fernando Rousseau is a 22 year old female who presents for continued management of chronic pelvic pain. HISTORY SINCE LAST VISIT: presents today for TPI has only had one PFPT , cannot go back to her. Does have nerve blocks scheduled for 01/21/2018 Flexeril makes her sleepy but does not help her pain Intensity of pain: throbbing Average Pain level: 6 on a scale of 0-10 Emergency room visits for pain since last visit: not ER but urgent care Level of physical activity and mobility: fair Quality of sleep: fair Mood: poor Side effects of medications for pain: none, just tired from flexeril Notes from last visit 12/20/[address] Lc MD: ASSESSMENT Fernando Rousseau is a 22 year old female with Bipolar 1 disorder (hcc) History of depression History of drug abuse Ptsd (post-traumatic stress disorder) Migraine with aura and with status migrainosus, not intractable Anxiety Secondary amenorrhea (primary encounter diagnosis) Trigger point of abdomen Coccygalgia ? Encounter Diagnosis ? ? ICD-10-CM ? 1. Secondary amenorrhea N91.1 PROLACTIN BLD ? ? TSH BLD ? ? FSH BLD ? ? ESTRADIOL-17B BLD ? ? DHEA-S BLD ? ? TESTOSTERONE, FREE AND TOTAL 2. Bipolar 1 disorder (HCC) F31.9 ? 3. History of depression Z86.59 ? 4. History of drug abuse Z87.898 ? 5. PTSD (post-traumatic stress disorder) F43.10 ? 6. Migraine with aura and with status migrainosus, not intractable G43.101 ? 7. Anxiety F41.9 ? 8. Trigger point of abdomen R10.9 TRIGGER POINT INJECTION MULTI 1-2 MUSCLE GR 9. Coccygalgia M53.3 CONSULT TO PAIN MGT ANESTHESIA ? Tailbone fracture 4 years ago, pain worse x 1- 2 years, adb wall AND pelvic floor pain 2ndary amenorrhea ? PLAN ? 1. Amenorrhea, TL for contraception, neg home tests at home --check labs. Consider provera 2. Refer to PFPT , name given Truly Daley P. T> 3. abd wall tpi 4. Pain mgmt, for tailbone injecition 5. Flexeril for pain Having hard time w/ transportation so will work it out. Claribel Platt MD f/u 5 To 6 wks ? <<<Procedure >>> ?? UNIVERSAL PROTOCOL / SAFETY CHECKLIST ?? Procedure to be performed: abdominal trigger point series ?? Sign in Communication: Completed ?? Time Out: Team Confirms the Correct Patient, Correct Procedure, Correct Site and Site Marking, Correct Position (if applicable), Prep and Dry Time (if applicable). Time: 300pm ?? Affirmation of Time Out: YES ?? Sign Out Discussion: Completed ?? PROCEDURE NOTE: <<<Procedure >>> ?? UNIVERSAL PROTOCOL / SAFETY CHECKLIST ?? Procedure to be performed: Abdominal wall trigger point series ?? Sign in Communication: Completed ?? Time Out: Team Confirms the Correct Patient, Correct Procedure, Correct Site and Site Marking, Correct Position (if applicable), Prep and Dry Time (if applicable). Time: 3:00pm ?? Affirmation of Time Out: YES ?? Sign Out Discussion: Completed ?? PROCEDURE NOTE: Area prepped with alcohol swab 10 mL 0.25% bupivicaine mixed in a 10 mL syringe. Skin was prepped in a sterile fashion. 1 Affected area was injected in upper/mid/lower abdominal muscle Groups (10 areas)with 10 mL of the bupivicaine solution using a 22g needle. Patient tolerated the procedure well. ? Patient tolerated procedure well. ?? 0.25% Bupivacaine 10 ML --- lot # [id number] EXP: [id number] ? SUBJECTIVE ROS OBJECTIVE Ht 5' 4 (1.63m) Wt 152 lb (68.9kg) BMI 26.08 kg/(m2). PHYSICAL EXAMINATION: Physical Exam Abdominal: Genitourinary: Genitourinary Comments: Spine tenderness tender L4/5 SI joint neg Leg length - neg ASIS - neg Pubic symphysis tenderness neg Pubic bones neg Abdominal tenderness tender blq Abdominal myofacial trigger points - + carnetts Vaginal Vestibular tenderness neg Rectal tenderness neg Bladder base tenderness neg Uterine position/tenderness A/neg (A=Anteverted, R= retroverted, M= mid-position) Retrocervical tenderness neg Cervical motion tenderness negn Adnexal tenderness neg Pelvic Floor Musculature RIGHT SIDED Pubococcygeus 3 Iliococcygeus 1 Coccygeus 2 Obturator 2 LEFT SIDED Pubococcygeus 3 Iliococcygeus 3 Coccygeus 3 Obturator 3 (Pain Scale 1 to 3, 3= extreme) ASSESSMENT Encounter Diagnosis ICD-10-CM 1. Trigger point of abdomen R10.9 TRIGGER POINT INJECTION MULTI 1-2 MUSCLE GR 2. Chronic pelvic pain in female R10.2 G89.29 3. Secondary amenorrhea N91.1 medroxyPROGESTERone (PROVERA) 10 mg tablet 4. Myofascial pain M79.1 diazePAM (VALIUM) 5 mg tablet PLAN abd and B vaginal wall tpi done Will find new PFPT in area. Names given Her current therapist doesn't take caresource Amenorrhea, normal labs. Appears to be anovulatory --provera now. Follow up in 1 month Claribel Platt MD <<<Procedure >>> ?? UNIVERSAL PROTOCOL / SAFETY CHECKLIST ?? Procedure to be performed: abd and vaginal wall trigger point series ?? Sign in Communication: Completed ?? Time Out: Team Confirms the Correct Patient, Correct Procedure, Correct Site and Site Marking, Correct Position (if applicable), Prep and Dry Time (if applicable). Time: 1100am ?? Affirmation of Time Out: YES ?? Sign Out Discussion: Completed ?? PROCEDURE NOTE: Area prepped with alcohol swab 10 mL 0.25% bupivicaine mixed in a 10 mL syringe. Skin was prepped in a sterile fashion. Lower abd waldl Affected area was injected in 1 muscle Groups with 10 mL of the bupivicaine solution using a 22g needle. Patient tolerated the procedure well. ? Patient tolerated procedure well. Area prepped with baby shampoo. 10 mL 0.25% bupivicaine mixed in a 10 mL syringe. Skin was prepped in a sterile fashion. r vaginal wall Affected area was injected in 1 muscle Groups (3 areas)with 10 mL of the bupivicaine solution using a 22g needle. Patient tolerated the procedure well. ?? 10 mL 0.25 % bupivicaine mixed in a 10 mL syringe. Skin was prepped in a sterile fashion. Left vaginal wall Affected area was injected Into 1 muscle groups (3 areas) with 10 mL of the bupivicaine solution using a 22g needle. Patient tolerated the procedure well. ?? Patient tolerated procedure well. ?? 0.25 % Bupivacaine 10 ML --- lot # [id number] EXP: [id number] PROGRESS Observed: 01/01/2018 Status: COMPLETED Source: [place] 3:47 PM [facility] RE[facility] HNO ID: [id number] Author: Nelly (Bus Operator) Shavon Service: (none) Author Type: Nurse Practitioner Type: Progress Notes Filed: 01/01/2018 4:02 PM Note Text: Subjective HPI Fernando Rousseau is a 22 year old female who presents with sinus congestion for the past 3 days, and a headache for 2.5 weeks. She takes medication for migraines. No known sick contacts. She took benadryl yesterday. She states she cannot taste her food or when she does it tastes bad and makes her feel nauseated. Review of Systems Constitutional: Positive for chills. HENT: Positive for congestion, ear pain (left) and sinus pain. Negative for sore throat. Respiratory: Positive for cough. Cardiovascular: Negative. Gastrointestinal: Positive for nausea and vomiting. BP 118/82 Pulse 100 Temp 37 ?C (98.6 ?F) (Left Tympanic) Resp 10 Wt 68.9 kg (152 lb) BMI 26.09 kg/m? PAST MEDICAL HISTORY Diagnosis Date - Abnormal Pap smear of cervix - ADHD (attention deficit hyperactivity disorder) - Anemia - Anxiety Dr. Oliver - Asthma - Bipolar disorder (HCC) - Chlamydia 2013 - Complication of anesthesia migraines after anesthesia - Convulsions (HCC) - GERD (gastroesophageal reflux disease) - Migraines - Polysubstance abuse History. Last use of any illicit drug was September - depression - Preeclampsia - PTSD (post-traumatic stress disorder) - Reactive attachment disorder - Seizure (HCC) psychogenic non epileptic seizures - Tobacco use PAST SURGICAL HISTORY Procedure Laterality Date - COLONOSCOP W/ OR W/O [facility] SPEC 06/12/2017 Colonoscopy [facility] - normal - Bx negative - EGD W/O OR W/BRUSH/WASH 06/12/2017 EGD - duodenitis, gastritis, superfical gastric ulcers, - EXTRACTION ERUPTED TOOTH/EXR Right - KNEE SCOPE,AID ANT CRUCIATE REPAIR Right 01/27/2017 Right knee arthroscopic ACL reconstruction with hamstring autograft and medial menisectomy - TUBAL LIGATION HX ALLERGIES Clindamycin; Dicyclomine; Flagyl [Metronidazole Hcl]; Keflex [Cephalexin]; Mobic [Meloxicam]; Penicillin; Procardia [Nifedipine]; Progesterone Aqueous; Sulfa (Sulfonamide Antibiotics); Terbutaline; Tessalon [Benzonatate] MEDICATIONS gabapentin (NEURONTIN) 100 mg capsule Take 100 mg by mouth twice daily. naproxen (NAPROSYN) 250 mg tablet Take 250 mg by mouth twice daily with meals. topiramate (TOPAMAX) 50 mg tablet Take 50 mg by mouth twice daily. cyclobenzaprine (FLEXERIL) 10 mg tablet Take 1 tablet by mouth three times daily as needed. NO122/IRON/FOLIC ACID ( MULTI ORAL) Take by mouth. aspirin, enteric coated (ASPIRIN, ENTERIC COATED) 81 mg EC tablet TAKE (1) TABLET BY MOUTH ONCE DAILY famotidine (PEPCID) 40 mg tablet TAKE (1) TABLET BY MOUTH ONCE DAILY PROAIR HFA 90 mcg/actuation inhaler INHALE TWO (2) PUFFS BY MOUTH EVERY 4 HOURS NEEDED DIRECTED fluticasone (FLOVENT) 110 mcg/actuation inhaler Inhale 2 Puffs as instructed twice daily. FAMILY HISTORY Problem Relation Age of Onset - Adopted: Yes - Breast Cancer Mother - Seizures Mother - Thyroid Mother - Fibromylagia [OTHER] Mother - Seizures Paternal Grandmother - Lung Cancer [OTHER] Paternal Grandmother - Coagulopathy [OTHER] Paternal Grandmother - Cervical Cancer Maternal Grandmother - Thyroid Maternal Grandmother - Seizures Maternal Grandmother - Breast Cancer Maternal Grandmother - Seizures Paternal Grandfather - Pancreatic Cancer [OTHER] Paternal Grandfather - Coagulopathy [OTHER] Paternal Grandfather - Leukemia [OTHER] Paternal Aunt - Seizures Father - Heart Father 39 [place] - Coagulopathy [OTHER] Paternal Aunt - Seizures Maternal Grandfather - autism, fragile x [OTHER] Sister - Down Syndrome [OTHER] Brother Social History Substance Use Topics - Smoking status: Current Every Day Smoker Packs/day: 0.50 Types: Cigarettes Start date: 07/28/2006 - Smokeless tobacco: Current User Types: Chew - Alcohol use Yes Comment: Seldom Objective Physical Exam Constitutional: She is well-developed, well-nourished, and in no distress. HENT: Head: Normocephalic. Right Ear: Tympanic membrane, external ear and ear canal normal. Left Ear: Tympanic membrane, external ear and ear canal normal. Nose: Rhinorrhea and sinus tenderness present. Left sinus exhibits frontal sinus tenderness. Mouth/Throat: Uvula is midline, oropharynx is clear and moist and mucous membranes are normal. No posterior oropharyngeal edema or posterior oropharyngeal erythema. Eyes: Conjunctivae are normal. Right eye exhibits no discharge. Left eye exhibits no discharge. Neck: Neck supple. Cardiovascular: Normal rate, regular rhythm and normal heart sounds. Pulmonary/Chest: Effort normal and breath sounds normal. No respiratory distress. She has no wheezes. She has no rales. Lymphadenopathy: She has no cervical adenopathy. Neurological: She is alert. Skin: Skin is warm and dry. No rash noted. Nursing note and vitals reviewed. ASSESSMENT/PLAN: 1. Bacterial sinusitis - ICD9: 473.9, 041.9, ICD10: J32.9, B96.89 - Will begin treatment with Doxycycline - Supportive care with plenty of fluids, rest, and analgesia prn. - DOXYCYCLINE HYCLATE 100 MG CAPSULE - PSEUDOEPHEDRINE ER 120 MG TABLET,EXTENDED RELEASE - Follow-up with your PCP in 3-5 days if symptoms have not improved or sooner if symptoms worsen - Discussed red flags and need for immediate medical evaluation if any occur. - Discussed supportive care treatment with fluids, rest and analgesia. - Discussed expected course of illness Nelly Sands APRN.[facility] Observed: 01/01/2018 Status: COMPLETED Source: [place] 3:30 PM [facility] [place] REPOSITORY Office Visit ([facility]) FERNANDO TRAN ([id number]) 1995 F Date Time Provider Department 01/01/18 3:30 PM NELLY SANDS ([facility]) [facility] During your visit today, we recorded the following information about you: Temperature Pulse Respiration Blood pressure 98.6 degrees 100/minute 10/minute 118/82 Weight 68.9 kg Nelly Sands APRN.[facility] 01/01/2018 4:02 PM Signed Subjective HPI Fernando Rousseau is a 22 year old female who presents with sinus congestion for the past 3 days, and a headache for 2.5 weeks. She takes medication for migraines. No known sick contacts. She took benadryl yesterday. She states she cannot taste her food or when she does it tastes bad and makes her feel nauseated. Review of Systems Constitutional: Positive for chills. HENT: Positive for congestion, ear pain (left) and sinus pain. Negative for sore throat. Respiratory: Positive for cough. Cardiovascular: Negative. Gastrointestinal: Positive for nausea and vomiting. BP 118/82 Pulse 100 Temp 37 ?C (98.6 ?F) (Left Tympanic) Resp 10 Wt 68.9 kg (152 lb) BMI 26.09 kg/m? PAST MEDICAL HISTORY Diagnosis Date - Abnormal Pap smear of cervix - ADHD (attention deficit hyperactivity disorder) - Anemia - Anxiety Dr. Oliver - Asthma - Bipolar disorder ([facility]) - Chlamydia 2013 - Complication of anesthesia migraines after anesthesia - Convulsions ([facility]) - GERD (gastroesophageal reflux disease) - Migraines - Polysubstance abuse History. 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 - Tobacco use PAST SURGICAL HISTORY Procedure Laterality Date - COLONOSCOP W/ OR W/O [facility] SPEC 06/12/2017 Colonoscopy [facility] - normal - Bx negative - EGD W/O OR W/BRUSH/WASH 06/12/2017 EGD - duodenitis, gastritis, superfical gastric ulcers, - EXTRACTION ERUPTED TOOTH/EXR Right - KNEE SCOPE,AID ANT CRUCIATE REPAIR Right 01/27/2017 Right knee arthroscopic ACL reconstruction with hamstring autograft and medial menisectomy - TUBAL LIGATION HX ALLERGIES Clindamycin; Dicyclomine; Flagyl [Metronidazole Hcl]; Keflex [Cephalexin]; Mobic [Meloxicam]; Penicillin; Procardia [Nifedipine]; Progesterone Aqueous; Sulfa (Sulfonamide Antibiotics); Terbutaline; Tessalon [Benzonatate] MEDICATIONS gabapentin (NEURONTIN) 100 mg capsule Take 100 mg by mouth twice daily. naproxen (NAPROSYN) 250 mg tablet Take 250 mg by mouth twice daily with meals. topiramate (TOPAMAX) 50 mg tablet Take 50 mg by mouth twice daily. cyclobenzaprine (FLEXERIL) 10 mg tablet Take 1 tablet by mouth three times daily as needed. NO122/IRON/FOLIC ACID ( MULTI ORAL) Take by mouth. aspirin, enteric coated (ASPIRIN, ENTERIC COATED) 81 mg EC tablet TAKE (1) TABLET BY MOUTH ONCE DAILY famotidine (PEPCID) 40 mg tablet TAKE (1) TABLET BY MOUTH ONCE DAILY PROAIR HFA 90 mcg/actuation inhaler INHALE TWO (2) PUFFS BY MOUTH EVERY 4 HOURS NEEDED DIRECTED fluticasone (FLOVENT) 110 mcg/actuation inhaler Inhale 2 Puffs as instructed twice daily. FAMILY HISTORY Problem Relation Age of Onset - Adopted: Yes - Breast Cancer Mother - Seizures Mother - Thyroid Mother - Fibromylagia [OTHER] Mother - Seizures Paternal Grandmother - Lung Cancer [OTHER] Paternal Grandmother - Coagulopathy [OTHER] Paternal Grandmother - Cervical Cancer Maternal Grandmother - Thyroid Maternal Grandmother - Seizures Maternal Grandmother - Breast Cancer Maternal Grandmother - Seizures Paternal Grandfather - Pancreatic Cancer [OTHER] Paternal Grandfather - Coagulopathy [OTHER] Paternal Grandfather - Leukemia [OTHER] Paternal Aunt - Seizures Father - Heart Father 39 [place] - Coagulopathy [OTHER] Paternal Aunt - Seizures Maternal Grandfather - autism, fragile x [OTHER] Sister - Down Syndrome [OTHER] Brother Social History Substance Use Topics - Smoking status: Current Every Day Smoker Packs/day: 0.50 Types: Cigarettes Start date: 07/28/2006 - Smokeless tobacco: Current User Types: Chew - Alcohol use Yes Comment: Seldom Objective Physical Exam Constitutional: She is well-developed, well-nourished, and in no distress. HENT: Head: Normocephalic. Right Ear: Tympanic membrane, external ear and ear canal normal. Left Ear: Tympanic membrane, external ear and ear canal normal. Nose: Rhinorrhea and sinus tenderness present. Left sinus exhibits frontal sinus tenderness. Mouth/Throat: Uvula is midline, oropharynx is clear and moist and mucous membranes are normal. No posterior oropharyngeal edema or posterior oropharyngeal erythema. Eyes: Conjunctivae are normal. Right eye exhibits no discharge. Left eye exhibits no discharge. Neck: Neck supple. Cardiovascular: Normal rate, regular rhythm and normal heart sounds. Pulmonary/Chest: Effort normal and breath sounds normal. No respiratory distress. She has no wheezes. She has no rales. Lymphadenopathy: She has no cervical adenopathy. Neurological: She is alert. Skin: Skin is warm and dry. No rash noted. Nursing note and vitals reviewed. ASSESSMENT/PLAN: 1. Bacterial sinusitis - ICD9: 473.9, 041.9, ICD10: J32.9, B96.89 - Will begin treatment with Doxycycline - Supportive care with plenty of fluids, rest, and analgesia prn. - DOXYCYCLINE HYCLATE 100 MG CAPSULE - PSEUDOEPHEDRINE ER 120 MG TABLET,EXTENDED RELEASE - Follow-up with your PCP in 3-5 days if symptoms have not improved or sooner if symptoms worsen - Discussed red flags and need for immediate medical evaluation if any occur. - Discussed supportive care treatment with fluids, rest and analgesia. - Discussed expected course of illness JONATHAN Boogie APRN.CNP 01/01/2018 3:56 PM Signed Acute Sinusitis Each of us has four paired cavities (spaces) in our head that are connected to the nose by narrow channels. These cavities, known as sinuses, produce thin mucus that drains out of the channels of the nose. This drainage helps keep the nose clean and free of particles and bacteria. Normally, sinuses are filled with air. But when sinuses become blocked and filled with fluid, bacteria can grow and cause an infection (bacterial sinusitis). Conditions that cause sinus blockage include: ? the common cold ? allergic rhinitis (swelling of the lining of the nose due to allergies) ? nasal polyps (small growths in the lining of the nose), or ? a deviated septum (the wall between the left and right nostril is crooked). Allergies, such as hay fever, can also cause swelling and poor drainage of the sinuses. One confusing factor to consider is that many people with ?sinus headaches? are actually suffering from migraines. In fact, in large clinical studies, up to 90% of people who reported sinus headaches were diagnosed with migraines instead. Migraines can cause headaches in combination with facial pressure over the sinuses, a runny nose, and nasal congestion. If you have symptoms that involve the sinuses, it may be difficult to tell if you have sinusitis, a cold, nasal allergy, or even a migraine. This article will describe the symptoms, diagnosis, and treatment of sinusitis, and how to tell the difference between sinusitis, cold, migraines, and nasal allergy. What is sinusitis? Sinusitis is an inflammation, or swelling, of the tissue lining the sinuses. There are two types of sinusitis: ? Acute bacterial sinusitis: a sudden onset of cold symptoms such as runny nose, stuffy nose, and facial pain that does not go away after 10 days, or symptoms that seem to begin improving but return worse than the initial symptoms. It responds well to antibiotics and decongestants. ? Chronic sinusitis: a condition defined by nasal congestion, drainage, facial pain/pressure, and decreased sense of smell for at least 12 weeks. Who gets sinusitis? Every year, approximately 1 billion Americans have at least one episode of viral sinusitis. About 37 million will develop a bacterial sinusitis. People who have the following conditions have a higher risk of sinusitis: ? Nasal mucus membrane swelling, as from a common cold or allergies ? Blockage of drainage ducts, leading to trapping of mucus ? Structure differences that narrow the drainage ducts ? Conditions that result in an increased risk of infection ? Polyps (growths) In children, common factors in the environment that contribute to sinusitis include allergies, illness from other children at day care or school, and smoke in the environment. In adults, the contributing factors are most frequently viral infections, allergies, and smoking. What are the signs and symptoms of acute sinusitis? The primary symptoms of acute sinusitis include: ? Facial pain/pressure/tenderness ? Nasal stuffiness ? Nasal discharge (thick yellow or green discharge from nose), especially if it is long-lasting. These also may be present with viral illness. ? Loss of smell and taste ? Cough/congestion Additional symptoms may include: ? Fever of 102? or higher ? Ear pain ? Headache ? Bad breath ? Fatigue ? Ache in upper jaw and teeth How is sinusitis diagnosed? To diagnose sinusitis, your doctor will discuss your symptoms and examine your nose for swelling and drainage. Your personal history is most important in diagnosing sinusitis. A physical exam of the ears, nose, and throat is performed to look for signs of obstruction (blockage) or infection. Some patients may have conditions that may need to be referred to a specialist, such as an ear, nose, and throat (ENT) physician. How is sinusitis treated? Acute sinusitis. If you have a simple sinusitis infection, your health care provider may recommend treatment with [id number] medications for cold and allergy, nasal saline irrigation, and drinking fluids (as most sinusitis is viral). Use of prescription intranasal steroid sprays might be added to help control symptoms. However, non-prescription drops or sprays should not be used beyond 5 days -- or they may actually increase congestion. If symptoms do not improve after at least 10 days, if the symptoms seem to be getting worse, or if medications for cold or allergy do not improve symptoms, a bacterial infection may be causing the sinusitis. In this case, antibiotics are given for 7 days in adults and 10 days in children. Antibiotics should improve symptoms within 48 hours. Chronic sinusitis. Treating chronic sinusitis begins with controlling the underlying condition, which is most often allergies. Standard treatments include intranasal steroid sprays, topical antihistamine sprays, or antihistamine pills, and leukotriene antagonists such as montelukast. Often you will be encouraged to rinse the nose with saline irrigations. Sometimes medications may be added to these irrigations. If sinusitis is not controlled, the next step is a visit with an Ear, Nose and Throat Specialist. Will I need to make lifestyle changes? If you have indoor allergies, avoiding triggers -- such as animal dander and dust mites ? is recommended in addition to medications. Smoking is never recommended, but if you do smoke, strongly consider a program to help you stop smoking, as this may be the main reason you have sinus infections. No special diet is required, but drinking extra fluids helps to thin nasal secretions. What are the symptoms of the common cold? An upper respiratory infection (the common cold) is usually caused by a virus that infects the nose and throat. Most upper respiratory infections are not bacterial and do not respond to antibiotics. A cold may cause swelling in the sinuses, preventing the outflow of mucus. Cold symptoms include nasal congestion, runny nose, post-nasal drip (bfis-hr-wvfj release of nasal fluid into the back of the throat), headache, achiness, and fatigue. Cough and fever may also go along with these symptoms. Cold symptoms usually build, peak, and slowly disappear. No treatment is necessary for a cold, but some medications can ease symptoms. For example, decongestants may decrease drainage and open the nasal passages. Analgesics (pain relievers) may help with fever and headache. Cough medication may help, as well. Colds will typically last from a few days to about a week. What is the harm in getting an antibiotic for a common cold? Viral infections like the common cold are not cured by antibiotics. Taking an antibiotic for a viral infection unnecessarily puts you at risk for side effects related to the antibiotic. In addition, the overuse of antibiotics leads to antibiotic resistance, which may make future infections more difficult to treat. Finally, the use of inappropriate medication increases health care costs unnecessarily. What are the symptoms of nasal allergy? Symptoms of nasal allergy include: ? Sneezing ? Itchy nose ? Clear, watery nasal discharge ? Nasal blockage ? Feeling fatigued How is nasal allergy treated? Usually medications are prescribed to relieve symptoms. These may include antihistamines, with or without decongestants, or steroid nasal sprays. Other nasal sprays, which deliver antihistamines or cromolyn sodium, are sometimes helpful. If allergy symptoms are chronic (long-term), allergy testing and allergy shots (immunotherapy) may be helpful. How can I tell if I have a sinus infection, cold, or nasal allergy? Although the symptoms of sinusitis and nasal allergy may occur with a common cold, in general, cold-related symptoms disappear within 1 week. The point at which a normal cold ends and a sinus condition begins is not always easy to know. If you are fighting off a cold and develop symptoms of a sinus infection or nasal allergy, see your health care provider. You will be asked to describe your symptoms and medical history. ? How do I know if my sinus condition requires the care of an ear, nose, and throat specialist? Most routine sinus conditions are easily cared for by primary care physicians. If, however, you are bothered by ongoing abnormal symptoms, recurring infections, or have abnormal X-ray findings or complications, a referral to a specialist is appropriate. References ? Marcus Mosley et al., IDSA Clinical Practice Guideline for Acute Bacterial Rhinosinusitis in Children and Adults. Clinical Infectious Diseases; 2012;54(8):8769-4206. ? Alli Samson, Sinusitis: Allergies, antibiotics, aspirin, asthma. [facility] Journal of Medicine 2006; 73(7): 671-678 ? National [place] of Allergy and Infectious Diseases. Sinusitis (Sinus Infection) Accessed 06/02/2015. ? [employer] of Allergy, Asthma, and Immunology. Sinusitis Accessed 06/02/2015. ? [employer] of [employer], Asthma AND Immunology. Sinus Information Accessed 06/02/2015. ? Cristy Hardin., Prevalence of migraine in patients with a history of self-reported or physician-diagnosed sinus headache. Arch Legal Adviser Med, 2004. 164(16):1769-72. ? Copyright 9812-4029 The [facility]. All rights reserved. Referring Provider: SELF [200] Allergies As of Date: 01/01/2018 Noted Allergy Reaction CLINDAMYCIN 10/22/2015 4 - Hives 12 - Shortness of Breath DICYCLOMINE 05/25/2017 9 - Itching FLAGYL (METRONIDAZOLE HCL) 11/01/2017 9 - Itching KEFLEX (CEPHALEXIN) 10/13/2016 10 - Anaphylaxis MOBIC (MELOXICAM) 12/20/2017 14 - Other: See Comments Comments: Chest pain PENICILLIN 10/22/2015 4 - Hives Comments: Per pt anything in the penicillin family she is allergic to PROCARDIA (NIFEDIPINE) 10/22/2015 4 - Hives Comments: Hives and seizures per pt PROGESTERONE AQUEOUS 10/13/2016 2 - Rash Comments: Progesterone cream only SULFA (SULFONAMIDE ANTIBIOTICS) 01/02/2017 4 - Hives TERBUTALINE 10/22/2015 4 - Hives Comments: Per pt has hives and seizures TESSALON (BENZONATATE) 01/01/2018 2 - Rash Date Reviewed: 01/01/2018 Reviewed by: Nelly ([facility]) Shavon Chisholm Fully Assessed Reason for Visit: Pain, Sinus [857] Cmt: headache Primary Visit Diagnosis:Bacterial sinusitis [J32.9, B96.89] Order(s):doxycycline hyclate (VIBRAMYCIN) 100 mg capsuleTake 1 capsule by mouth twice daily for 10 days.Disp: 20 capsuleRfl: 0 Pseudoephedrine HCl (SUDAFED 12 HOUR) 120 mg TbERTake 1 tablet by mouth every 12 hours.Disp: 30 tabletRfl: 0 Prescriptions as of 01/01/2018 Sig: GABAPENTIN 100 MG CAPSULE Take 100 mg by mouth twice da* NAPROXEN 250 MG TABLET Take 250 mg by mouth twice da* TOPIRAMATE 50 MG TABLET Take 50 mg by mouth twice alber* CYCLOBENZAPRINE 10 MG TABLET Take 1 tablet by mouth three * MULTI ORAL Take by mouth. ASPIRIN 81 MG TABLET,DELAYED * TAKE (1) TABLET BY MOUTH ONCE* FAMOTIDINE 40 MG TABLET TAKE (1) TABLET BY MOUTH ONCE* PROAIR HFA 90 MCG/ACTUATION A* INHALE TWO (2) PUFFS BY MOUTH* FLUTICASONE 110 MCG/ACTUATION* Inhale 2 Puffs as instructed * DOXYCYCLINE HYCLATE 100 MG CA* Take 1 capsule by mouth twice* PSEUDOEPHEDRINE ER 120 MG TAB* Take 1 tablet by mouth every * Problem List As Of Date 01/01/2018 Noted Resolved Seizures (HCC) [R56.9] INVALID FOR*12/27/2016 Previous delivery, antepartum [O09.219] INVALID FOR*12/27/2016 , high-risk [O09.90] INVALID FOR*12/27/2016 Bipolar 1 disorder (HCC) [F31.9] INVALID FOR* Recurrent loss (CODE) [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 with care elsewhere, antepar*INVALID FOR*12/27/2016 More... History of labor, current [O0*INVALID FOR*12/27/2016 More... History of labor [Z87.51] INVALID FOR*12/27/2016 More... UTI (urinary tract infection) in , ant*INVALID FOR*12/27/2016 More... History of depression [Z87.59, Z86.5*INVALID FOR*12/27/2016 History of depression [Z86.59] INVALID FOR* More... Custody issue [Z65.3] INVALID FOR*12/27/2016 More... Tobacco use during , antepartum [O99.3*INVALID FOR*12/27/2016 More... History of drug abuse [Z87.898] INVALID FOR* More... History of seizures [Z87.898] INVALID FOR*01/25/2017 More... H/O pre-eclampsia in prior , currently*INVALID FOR*12/27/2016 Family history of defects [Z82.79] INVALID FOR*01/25/2017 More... Family history of genetic disease [Z84.89] INVALID FOR*01/25/2017 More... Short interval between pregnancies affecting pr*INVALID FOR*12/27/2016 Poor historian [Z78.9] INVALID FOR* More... PTSD (post-traumatic stress disorder) [F43.10] Polysubstance abuse [F19.10] More... Migraines [G43.909] Asthma [J45.909] Anxiety [F41.9] Seizure (HCC) [R56.9] INVALID FOR* More... GERD (gastroesophageal reflux disease) [K21.9] INVALID FOR* Other instructions from your clinician: Acute Sinusitis Each of us has four paired cavities (spaces) in our head that are connected to the nose by narrow channels. These cavities, known as sinuses, produce thin mucus that drains out of the channels of the nose. This drainage helps keep the nose clean and free of particles and bacteria. Normally, sinuses are filled with air. But when sinuses become blocked and filled with fluid, bacteria can grow and cause an infection (bacterial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 8 Performed By: #### L500.2500, L501.9520, L506.0400 #### [facility] [address] [place], [place], [id number] THYROID STIM HORMONE Collected: 11/10/2017 Status: F Source: [place] (TSH) 7:49 AM [facility] REPOSITORY Order Comment: Comments: Fasting Comments: Fasting TYPE CODE TESTS RESULT OUT OF RANGE REFERENCE UNITS LAB L501.9520 0.358-3.74 uIU/mL Normal TSH 1.38 Performed By: #### L500.2500, L501.9520, L506.0400 #### [facility] [address] [place], [place], [id number] T4 FREE DIRECT Collected: 11/10/2017 Status: F Source: [place] 7:49 AM [facility] REPOSITORY Order Comment: Comments: Fasting Comments: Fasting TYPE CODE TESTS RESULT OUT OF RANGE REFERENCE UNITS LAB L506.0400 0.76-1.46 ng/dL Normal T4 FREE 1.27 DIRECT Performed By: #### L500.2500, L501.9520, L506.0400 #### [facility] [address] [place], [address] HEMOGLOBIN A1C Collected: 11/10/2017 Status: F Source: [place] 7:49 AM [facility] REPOSITORY TYPE CODE TESTS RESULT OUT OF RANGE REFERENCE UNITS LAB L501.9985 4.2-6.3 % Normal HGB A1C 4.9 Performed By: #### L501.9985 #### [facility] [address] [place], [address] INTERNAL MEDICINE Observed: 11/07/2017 Status: F Source: [place] OFFICE VISIT 3:03 PM [facility] REPOSITORY [facility] [address] [place] [address] [place] [address] OFFICE VISIT Date of Service: 11/06/17 MR#: [id number] Acct: [id number] Name: FERNANDO ROUSSEAU Rep #: [id number] : 1995 Provider: Vega Gandhi MD Age/Sex: 22/F Location[place] [facility] [email or web address] Status: Signed Intake Vital Signs11/06/17 Height 5 ft 5 in Intake Visit Reasons: EST PCP Chief Complaint: establish care Is patient in pain?: Yes (pelvic pain) Pain scale (1-10): 8 Allergies adhesive tape Allergy (Severe, Verified 11/06/17 10:46) Rash latex Allergy (Severe, Verified 11/06/17 10:46) Rash cephalexin [From Keflex] Allergy (Verified 05/10/17 12:33) Hives clindamycin Allergy (Verified 05/10/17 12:33) Anaphylaxis dicyclomine [From Bentyl] Allergy (Verified 06/12/17 11:35) Itching nifedipine [From Procardia] Allergy (Verified 05/10/17 12:33) Angioedema Penicillins Allergy (Verified 05/10/17 12:33) Anaphylaxis progesterone Allergy (Verified 05/10/17 12:33) Hives Sulfa (Sulfonamide Antibiotics) Allergy (Verified 05/10/17 12:33) Hives terbutaline [From Brethine] Allergy (Verified 05/10/17 12:33) Angioedema ondansetron [From Zofran (as hydrochloride)] Adverse Reaction (Verified 05/10/17 12:33) Other Medications Famotidine [Pepcid] 40 mg PO DAILY 10/01/16 [History Confirmed 11/06/17] Albuterol Inhaler [Ventolin Hfa (SP)] 2 puff INHALATION DAILY PRN PRN 02/05/17 [History Confirmed 11/06/17] Aspirin 81 mg PO DAILY 04/29/17 [History Confirmed 11/06/17] Pnv No.122/Iron/Folic Acid [ Multi Tablet] 1 ea PO DAILY 04/29/17 [History Confirmed 11/06/17] Acetaminophen [Tylenol Extra Strength] 500 mg PO Q6H 05/10/17 [History Confirmed 11/06/17] Fluticasone 110 Mcg [Flovent (SP)] 2 puff INHALATION BID 06/12/17 [History Confirmed 11/06/17] benzonatate 100 mg capsule 100 mg PO TID PRN 11/06/17 [History Confirmed 11/06/17] topiramate 25 mg tablet 50 mg PO QHS #90 tab 11/06/17 [Rx Confirmed 11/06/17] Is last menstrual period known: Yes Post menopausal: No Patient : No PFSH Medical History Tunnel vision (Chronic) Stomach ulcer (Acute) Preeclampsia (Acute) Seizures (Acute) Deafness in left ear (Chronic) Migraines (Chronic) IBS (irritable bowel syndrome) (Acute) History of broken finger (Acute) Frequent UTI (Acute) GERD (gastroesophageal reflux disease) (Acute) Acute back pain with sciatica (Acute) Chronic bronchitis (Chronic) Asthma (Chronic) Surgical History History of colonoscopy (Acute) History of repair of anterior cruciate ligament of left knee (Acute) History of tubal ligation (Acute) History of wisdom tooth extraction (Acute) Family History Mother Alcoholism Asthma Cancer Anxiety and depression Seizures Father Anxiety and depression Alcoholism Seizures Diabetes Myocardial infarction, Onset Age: 39 Grandmother Cancer uterine Thyroid disorder COPD (chronic obstructive pulmonary disease) Hypertension Hyperlipemia Asthma Sister Cystic fibrosis Asthma Brother Cystic fibrosis Mental retardation Aunt Breast cancer Aunt Cancer ovarian Unknown Cancer lung Social History Smoking Status: Current every day smoker alcohol intake: never substance use type: former substance user what type of physical activity do you participate in: walking frequency: daily HPI HPI Chief Complaint: establish care Details: FERNANDO ROUSSEAU, is a 22yo F who presents to the office today to establish care. She had previously followed up at the [facility] and was seen by Dr. Gipson. She reports increased hunger and appetite and despite her increase appetite, she has not gained any weight. She denies any prior/ known history of Thyroid dxs but does report a history of hyperglycemia and a significant family history of DM. ROS Const Constitutional: Positive for headache(s), night sweats and fatigue; no body ache, weakness or fever(s) Eyes Eyes: No blurry vision, change in vision, eye pain or discharge ENT ENT: Positive for headache(s) and ear pain (right); no abnormal hearing, ear pressure, tinnitus, dizziness/vertigo or balance problems Resp Respiratory: Positive for cough and wheezing; no shortness of breath Cardio Cardiology: No chest pain at rest, shortness of breath, dyspnea on exertion or palpitations Gastro GI: Positive for bloating; no abdominal pain Genitourinary-Female: Positive for urinary frequency and pelvic pain Skin Skin: Positive for dry skin and itching Neuro Neurology: Positive for headache(s); no weakness or abnormal hearing Endo Endocrine: Positive for fatigue, increased thirst/drinking, increased hunger, cold intolerance and heat intolerance Aller/Imm Allergy/Immunologic: Positive for wheezing and itchy eyes Exam Const General: cooperative, no acute distress Orientation: alert, awake, oriented x3 [facility] Head: atraumatic, normocephalic Ears: hearing grossly normal bilaterally Resp Effort AND Inspection: normal respiratory effort, able to speak in complete sentences Auscultation: Bilateral: Clear to Auscultation Cardio Rate: regular rate Rhythm: regular rhythm Heart Sounds: S1 normal, S2 normal GI Palpation: soft, no hepatosplenomegaly Neuro General: alert, awake, oriented x3, CN's II-XI intact bilaterally, moves all extremities Extrem General: no clubbing, cyanosis or edema Psych Appearance: grossly normal Mental Status: mental status grossly normal Affect: normal affect Assessment AND Plan 1. Polyphagia R63.2 Plan No weight changes despite increased consumption per patient. Prior history of hyperglycemia. BMP, A1C and Thyroid function ordered. Follow up with results. 2. Migraines G43.909 Plan Said to be stable on Topamax. Refills given. Prior records requested. Will follow. 3. Asthma J45.909 Plan Stable. Continue current medication. Will follow. This note was generated with [employer] dictation software. It may contain incorrect words, spelling, and punctuation that were not noted in checking the note before signing. Plan Detail Other Orders Orders: Other Medications New: Discontinued: omeprazole Discontinued Reason: Pt no longer taki40 mg (2 x 20 mg) PO BID Avani patel Follow Up 3 Months Coding Level of Care Code Off vis,est,level 4 Diagnoses Polyphagia R63.2 Migraines G43.909 Asthma J45.909 11/07/17 1503 <Electronically signed by Vega Gandhi MD> Date Vega Gandhi MD Cosigner Signature: Date (if applicable) CC: DODIE Observed: 11/07/2017 Status: COMPLETED Source: [place] 12:00 AM [facility] REPOSITORY Telephone (GYNMN) FERNANDO TRAN ([id number]) 1995 F Date Time Provider Department 11/07/17 CLARIBEL PLATT During your visit today, we recorded the following information about you: Edda Ureña RN 11/07/2017 10:00 AM Signed ----- Message from Hyun Maciel sent at 11/06/2017 4:40 PM EDT ----- Regarding: Dr. Claribel Platt/Dr. Carlos Tellez Patient has been identified by name and Date of : Yes Patient: Fernando Rousseau Date of : 1995 Provider for this encounter : Melchor Gipson MD Reason for call: To schedule appt at [facility] Was an appointment scheduled: No Reason for requesting visit (RFV/signs and symptoms/diagnosis) : To schedule appt at [facility] Person calling: self Return call to: self Call patient at: on cell [phone] (home) [phone] (cell) Payor: [employer] / Plan: BLUE CARD PPO / Product Type: PPO / Hyun Raheem Ureña RN 11/07/2017 10:02 AM Signed Attempted to return pt call to assist in scheduling correct appt. Pt has consult to [facility]. Msg left for pt to call office. Edda Ureña RN Arlyn Sharri Crawford 11/07/2017 11:45 AM Signed Pt scheduled with Dr Platt 12/20/17 NPAF has been mailed to home. Pt is aware forms need to be received 1 week prior to appt. Joi Arreaga APRN.CNP 12/08/2017 10:12 AM Signed New patient assessment form received. Joi Arreaga APRN.CNP Allergies As of Date: 11/07/2017 Noted Allergy Reaction CLINDAMYCIN 10/22/2015 4 - Hives 12 - Shortness of Breath DICYCLOMINE 05/25/2017 9 - Itching FLAGYL (METRONIDAZOLE HCL) 11/01/2017 9 - Itching KEFLEX (CEPHALEXIN) 10/13/2016 10 - Anaphylaxis PENICILLIN 10/22/2015 4 - Hives Comments: Per pt anything in the penicillin family she is allergic to PROCARDIA (NIFEDIPINE) 10/22/2015 4 - Hives Comments: Hives and seizures per pt PROGESTERONE AQUEOUS 10/13/2016 2 - Rash Comments: Progesterone cream only SULFA (SULFONAMIDE ANTIBIOTICS) 01/02/2017 4 - Hives TERBUTALINE 10/22/2015 4 - Hives Comments: Per pt has hives and seizures Date Reviewed: 11/06/2017 Reviewed by: Rosalba Claire (Pa) - Fully Assessed 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 ASPIRIN 81 MG TABLET,DELAYED * TAKE (1) TABLET BY MOUTH ONCE* FAMOTIDINE 40 MG TABLET TAKE (1) TABLET BY MOUTH ONCE* PROAIR HFA 90 MCG/ACTUATION A* INHALE TWO (2) PUFFS BY MOUTH* FLUTICASONE 110 MCG/ACTUATION* Inhale 2 Puffs as instructed * Problem List As Of Date 11/07/2017 Noted Resolved Seizures (HCC) [R56.9] INVALID FOR*12/27/2016 Previous delivery, antepartum [O09.219] INVALID FOR*12/27/2016 , high-risk [O09.90] INVALID FOR*12/27/2016 Bipolar 1 disorder (HCC) [F31.9] INVALID FOR* Recurrent loss (CODE) [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 with care elsewhere, antepar*INVALID FOR*12/27/2016 More... History of labor, current [O0*INVALID FOR*12/27/2016 More... History of labor [Z87.51] INVALID FOR*12/27/2016 More... UTI (urinary tract infection) in , ant*INVALID FOR*12/27/2016 More... History of depression [Z87.59, Z86.5*INVALID FOR*12/27/2016 History of depression [Z86.59] INVALID FOR* More... Custody issue [Z65.3] INVALID FOR*12/27/2016 More... Tobacco use during , antepartum [O99.3*INVALID FOR*12/27/2016 More... History of drug abuse [Z87.898] INVALID FOR* More... History of seizures [Z87.898] INVALID FOR*01/25/2017 More... H/O pre-eclampsia in prior , currently*INVALID FOR*12/27/2016 Family history of defects [Z82.79] INVALID FOR*01/25/2017 More... Family history of genetic disease [Z84.89] INVALID FOR*01/25/2017 More... Short interval between pregnancies affecting pr*INVALID FOR*12/27/2016 Poor historian [Z78.9] INVALID FOR* More... PTSD (post-traumatic stress disorder) [F43.10] Polysubstance abuse [F19.10] More... Migraines [G43.909] Asthma [J45.909] Anxiety [F41.9] Seizure (HCC) [R56.9] INVALID FOR* More... GERD (gastroesophageal reflux disease) [K21.9] INVALID FOR* Encounter Status:Closed by EDDA UREÑA RN on 11/27/17 PROGRESS Observed: 11/06/2017 Status: COMPLETED Source: [place] 4:24 PM [facility] REPOSITORY HNO ID: [id number] Author: Rosalba Claire (Pa) Service: (none) Author Type: Physician Downstairs Maid Type: Progress Notes Filed: 11/06/2017 4:53 PM Note Text: Rosalba Claire PA-C Department of Orthopaedics Orthopaedics [address] [place] [id number] Dept: [phone] Dept November 06, 2017 CHIEF COMPLAINT: Established Patient (Rigth wrist sprain - Ref. Aleisha Huang - last seen by BP 03/09/17 S/P right knee acl reconstruction with hamstring autograft and medial menisectomy) HPI: Ms. Fernando Rousseau is a 22 year old female. She presents with right wrist pain following a fall on 11/01/17. She was in the restroom when she slipped landing with her right hand out behind her. She states this is not a [facility] claim. Complains of diffuse right wrist pain that is a 9/10 dull, aching, sharpness. Was seen in the ED and had a negative wrist xray, was placed in cock up wrist splint. 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 She is right hand dominant and denies previous right wrist injuries. Is requesting not for light duty or time off work. ASSESSMENT: M25.531 Right wrist pain (primary encounter diagnosis) S63.501A Sprain of right wrist, initial encounter PLAN: Patients exam is very difficulty as her pain is very diffuse and she is not able to localize her pain to any specific location. She was advised to continue to use of wrist splint as needed. She was encouraged to work on gentle ROM at her wrist. Provided her with antiinflammatory to take for pain and discomfort. Will give her a letter asking her employer to consider light duty for the next two weeks. FOLLOW UP INSTRUCTIONS: As needed. Ms. Fernando Rousseau was advised as to contrast therapies and/or to take analgesics/anti-inflammatories as needed and all contraindications were reviewed. OBJECTIVE: Ms. Fernando Rousseau is a pleasant 22 year old in no apparent distress. Gen:There were no vitals taken for this visit. nl development, non obese, no deformities ENT: Normocephalic, normal hearing, moist mucosa CV: Pulses:Radial= 2+ and symmetric, capillary refill < 2 secs, no peripheral edema/varicosities Skin: no rash, bruising or lesions. Good turgor. Psych: cooperative and appropriate, alert and oriented x 3, good mood and affect. Musculoskeletal: Inspection: No evidence of eythema, warmth, bruising, abrasions, scars, deformity or drooping about bilateral upper extremities. No evidence of surgical incisions. No evidence of muscular atrophy. Range of Motion: Elbow flexion/extension WNL. Forearm pronation/supination WNL. Wrist flexion/wrist extension WNL. Radial deviation/ulnar deviation WNL. MCP flexion/extension WNL. IP flexion/extension WNL. Palpation: Positive tenderness to palpation: of right ulnar styloid, radial styloid, entire carpal area and all of the metacarpals. Stability: Negative: elbow valgus, elbow varus, grind test, thumb laxity, DRUJ, and SL ligament instability. IMAGING: 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: MATILDA ? Transcribe Date/Time: Nov 01 2017 12:45P Dictated by : LILIA ZHANG MD This examination was interpreted and the report reviewed and electronically signed by: LILIA ZHANG MD on Nov 01 2017 12:45PM ?EST Results-Findings * * *Final Report* * * DATE OF EXAM: Nov 01 2017 12:37PM ? WOX ? [id number] ?- ?XR WRIST 3V PA/LAT/OBL RT ?/ PROCEDURE REASON: Unspecified injury of right wrist, hand and finger(s), initial encounter ?? ? * * * * Physician Interpretation * * * * ?PROCEDURE: ?Right wrist INDICATION: ?Unspecified injury of right wrist, hand and finger(s), initial encounter ? . TECHNIQUE: ?XR WRIST 3V PA/LAT/OBL RT COMPARISON: ?None FINDINGS: No fractures or dislocations are seen. ?The bones, joint spaces and soft tissues are unremarkable. Supporting Subjective Information Below: Past Medical History: PAST MEDICAL HISTORY Diagnosis Date - Abnormal Pap smear of cervix - ADHD (attention deficit hyperactivity disorder) - Anemia - Anxiety Dr. Oliver - Asthma - Bipolar disorder ([facility]) - Chlamydia 2013 - Complication of anesthesia migraines after anesthesia - Convulsions ([facility]) - GERD (gastroesophageal reflux disease) - Migraines - Polysubstance abuse History. 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 - Tobacco use Past Surgical History: PAST SURGICAL HISTORY Procedure Laterality Date - COLONOSCOP W/ OR W/O BRSH SPEC 06/12/2017 Colonoscopy [facility] - normal - Bx negative - EGD W/O OR W/BRUSH/WASH 06/12/2017 EGD - duodenitis, gastritis, superfical gastric ulcers, - EXTRACTION ERUPTED TOOTH/EXR Right - KNEE SCOPE,AID ANT CRUCIATE REPAIR Right 01/27/2017 Right knee arthroscopic ACL reconstruction with hamstring autograft and medial menisectomy - TUBAL LIGATION HX Family History: FAMILY HISTORY Problem Relation Age of Onset - Adopted: Yes - Breast Cancer Mother - Seizures Mother - Thyroid Mother - Fibromylagia [OTHER] Mother - Seizures Paternal Grandmother - Lung Cancer [OTHER] Paternal Grandmother - Coagulopathy [OTHER] Paternal Grandmother - Cervical Cancer Maternal Grandmother - Thyroid Maternal Grandmother - Seizures Maternal Grandmother - Breast Cancer Maternal Grandmother - Seizures Paternal Grandfather - Pancreatic Cancer [OTHER] Paternal Grandfather - Coagulopathy [OTHER] Paternal Grandfather - Leukemia [OTHER] Paternal Aunt - Seizures Father - Heart Father 39 [place] - Coagulopathy [OTHER] Paternal Aunt - Seizures Maternal Grandfather - autism, fragile x [OTHER] Sister - Down Syndrome [OTHER] Brother Social History:Social History Marital status: Spouse name: Years of education: 13 Number of children: 4 Social History Main Topics Smoking status: Current Every Day Smoker Packs/day: 0.50 Years: 0.00 Types: Cigarettes Start date: 07/28/2006 Smokeless status: Current User Types: Chew Alcohol use: Yes Comment: Seldom Drug use: No Comment: Hx of drug use I have used everything except LSD,Ecstacy and wander States last use 09/2015 Sexual activity: Yes Partners with: Female, Male control/protection: Tubal Ligation Medications: Current Outpatient Prescriptions: NO122/IRON/FOLIC ACID ( MULTI ORAL) Take by mouth. aspirin, enteric coated (ASPIRIN, ENTERIC COATED) 81 mg EC tablet TAKE (1) TABLET BY MOUTH ONCE DAILY famotidine (PEPCID) 40 mg tablet TAKE (1) TABLET BY MOUTH ONCE DAILY PROAIR HFA 90 mcg/actuation inhaler INHALE TWO (2) PUFFS BY MOUTH EVERY 4 HOURS NEEDED DIRECTED fluticasone (FLOVENT) 110 mcg/actuation inhaler Inhale 2 Puffs as instructed twice daily. meloxicam (MOBIC) 15 mg tablet Take 1 tablet by mouth once daily. benzonatate (TESSALON PERLE) 100 mg capsule Take 2 capsules by mouth three times daily as needed. (Patient not taking: Reported on 11/06/2017 ) predniSONE (DELTASONE) 20 mg tablet Take 1 tablet by mouth twice daily for 5 days. (Patient not taking: Reported on 11/06/2017 ) azithromycin (ZITHROMAX Z-KOTA) 250 mg tablet Take 2 tablets day one, then, 1 tablet daily until gone. (Patient not taking: Reported on 11/06/2017 ) metroNIDAZOLE (FLAGYL) 500 mg tablet Take 1 tablet by mouth twice daily for 7 days. No current facility-administered medications for this visit. Allergies: Clindamycin; Dicyclomine; Flagyl [Metronidazole Hcl]; Keflex [Cephalexin]; Penicillin; Procardia [Nifedipine]; Progesterone Aqueous; Sulfa (Sulfonamide Antibiotics); Terbutaline ROS: General (negative for fatigue, malaise, weight loss/gain) HEENT (negative for headache, earache, recent vision changes, sinus pain, sore throat) Respiratory (no recent shortness of breath, hemoptysis) CV (negative for chest tightness, palpitations) Musculoskeletal (see HPI) Psych (no depression, anxiety) REFERRING PHYSICIAN: Ms. Fernando Rousseau was referred to me for consultation by the following physician. This consultation note will be sent to the following physician by either mail or electronic medical record. Aleisha Huang PA-C [address] [facility] [address] Melchor Gipson MD [address] [facility] [address] This note was partially generated using [employer] voice recognition system, and there may be some incorrect words, spellings, and punctuation that were not noted in checking the note before saving. Rosalba Claire PA-C PROGRESS Observed: 11/06/2017 Status: COMPLETED Source: [place] 3:00 PM [facility] HNO ID: [id number] Author: Elizabeth Bautista Ma Service: (none) Author Type: (none) Type: Progress Notes Filed: 11/06/2017 4:53 PM Note Text: Patient presents with: Established Patient: Rigth wrist sprain - Ref. 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 Patient states this is not Worker's Comp due to only being her 2nd day there and had not been there long enough to claim worker's comp. Patient states she works at [employer] in [place]. Patient was seen in and had x-rays done. She was negative for a fracture. Given a cockup wrist splint and has been wearing. Patient is right hand dominant. Patient states she has pain when twisting a cap off of a bottle and with writing. Taking Tylenol for the pain and does not help. Patient has a 22 pound son that will 1 in November. CNOV Observed: 11/06/2017 Status: COMPLETED Source: [place] 2:40 PM [facility] Office Visit (ORTHWS) WILMAR ROUSSEAUFERNANDO ([id number]) 1995 F Date Time Provider Department 11/06/17 2:40 PM ROSALBA CLAIRE (PA) During your visit today, we recorded the following information about you: Elizabeht Bautista Twila 11/06/2017 4:53 PM Signed Patient presents with: Established Patient: Rigth wrist sprain - Ref. 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 Patient states this is not Worker's Comp due to only being her 2nd day there and had not been there long enough to claim worker's comp. Patient states she works at [employer] in [place]. Patient was seen in and had x-rays done. She was negative for a fracture. Given a cockup wrist splint and has been wearing. Patient is right hand dominant. Patient states she has pain when twisting a cap off of a bottle and with writing. Taking Tylenol for the pain and does not help. Patient has a 22 pound son that will 1 in November. Rosalba Claire PA-C 11/06/2017 4:53 PM Signed Rosalba Claire PA-C Department of Orthopaedics Orthopaedics [address] [facility] [address] Dept: [phone] Dept November 06, 2017 CHIEF COMPLAINT: Established Patient (Rigth wrist sprain - Ref. Aleisha Huang - last seen by BP 03/09/17 S/P right knee acl reconstruction with hamstring autograft and medial menisectomy) HPI: Ms. Fernando Rousseau is a 22 year old female. She presents with right wrist pain following a fall on 11/01/17. She was in the restroom when she slipped landing with her right hand out behind her. She states this is not a C claim. Complains of diffuse right wrist pain that is a 9/10 dull, aching, sharpness. Was seen in the ED and had a negative wrist xray, was placed in cock up wrist splint. 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 She is right hand dominant and denies previous right wrist injuries. Is requesting not for light duty or time off work. ASSESSMENT: M25.531 Right wrist pain (primary encounter diagnosis) S63.501A Sprain of right wrist, initial encounter PLAN: Patients exam is very difficulty as her pain is very diffuse and she is not able to localize her pain to any specific location. She was advised to continue to use of wrist splint as needed. She was encouraged to work on gentle ROM at her wrist. Provided her with antiinflammatory to take for pain and discomfort. Will give her a letter asking her employer to consider light duty for the next two weeks. FOLLOW UP INSTRUCTIONS: As needed. Ms. Fernando Rousseau was advised as to contrast therapies and/or to take analgesics/anti-inflammatories as needed and all contraindications were reviewed. OBJECTIVE: Ms. Fernando Rousseau is a pleasant 22 year old in no apparent distress. Gen:There were no vitals taken for this visit. nl development, non obese, no deformities ENT: Normocephalic, normal hearing, moist mucosa CV: Pulses:Radial= 2+ and symmetric, capillary refill ANDlt; 2 secs, no peripheral edema/varicosities Skin: no rash, bruising or lesions. Good turgor. Psych: cooperative and appropriate, alert and oriented x 3, good mood and affect. Musculoskeletal: Inspection: No evidence of eythema, warmth, bruising, abrasions, scars, deformity or drooping about bilateral upper extremities. No evidence of surgical incisions. No evidence of muscular atrophy. Range of Motion: Elbow flexion/extension WNL. Forearm pronation/supination WNL. Wrist flexion/wrist extension WNL. Radial deviation/ulnar deviation WNL. MCP flexion/extension WNL. IP flexion/extension WNL. Palpation: Positive tenderness to palpation: of right ulnar styloid, radial styloid, entire carpal area and all of the metacarpals. Stability: Negative: elbow valgus, elbow varus, grind test, thumb laxity, DRUJ, and SL ligament instability. 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 Transcribe Date/Time: Nov 01 2017 12:45P Dictated by : LILIA ZHANG MD This examination was interpreted and the report reviewed and electronically signed by: LILIA ZHANG MD on Nov 01 2017 12:45PM ?EST Results-Findings * * *Final Report* * * DATE OF EXAM: Nov 01 2017 12:37PM ? WOX ? [id number] ?- ?XR WRIST 3V PA/LAT/OBL RT ?/ PROCEDURE REASON: Unspecified injury of right wrist, hand and finger(s), initial encounter ?? ? * * * * Physician Interpretation * * * * ?PROCEDURE: ?Right wrist INDICATION: ?Unspecified injury of right wrist, hand and finger(s), initial encounter ? . TECHNIQUE: ?XR WRIST 3V PA/LAT/OBL RT COMPARISON: ?None FINDINGS: No fractures or dislocations are seen. ?The bones, joint spaces and soft tissues are unremarkable. Supporting Subjective Information Below: Past Medical History: PAST MEDICAL HISTORY Diagnosis Date - Abnormal Pap smear of cervix - ADHD (attention deficit hyperactivity disorder) - Anemia - Anxiety Dr. Oliver - Asthma - Bipolar disorder (HCC) - Chlamydia 2013 - Complication of anesthesia migraines after anesthesia - Convulsions ([facility]) - GERD (gastroesophageal reflux disease) - Migraines - Polysubstance abuse History. Last use of any illicit drug was September - depression - Preeclampsia - PTSD (post-traumatic stress disorder) - Reactive attachment disorder - Seizure (HCC) psychogenic non epileptic seizures - Tobacco use Past Surgical History: PAST SURGICAL HISTORY Procedure Laterality Date - COLONOSCOP W/ OR W/O [facility] SPEC 06/12/2017 Colonoscopy WC - normal - Bx negative - EGD W/O OR W/BRUSH/WASH 06/12/2017 EGD - duodenitis, gastritis, superfical gastric ulcers, - EXTRACTION ERUPTED TOOTH/EXR Right - KNEE SCOPE,AID ANT CRUCIATE REPAIR Right 01/27/2017 Right knee arthroscopic ACL reconstruction with hamstring autograft and medial menisectomy - TUBAL LIGATION HX Family History: FAMILY HISTORY Problem Relation Age of Onset - Adopted: Yes - Breast Cancer Mother - Seizures Mother - Thyroid Mother - Fibromylagia [OTHER] Mother - Seizures Paternal Grandmother - Lung Cancer [OTHER] Paternal Grandmother - Coagulopathy [OTHER] Paternal Grandmother - Cervical Cancer Maternal Grandmother - Thyroid Maternal Grandmother - Seizures Maternal Grandmother - Breast Cancer Maternal Grandmother - Seizures Paternal Grandfather - Pancreatic Cancer [OTHER] Paternal Grandfather - Coagulopathy [OTHER] Paternal Grandfather - Leukemia [OTHER] Paternal Aunt - Seizures Father - Heart Father 39 [place] - Coagulopathy [OTHER] Paternal Aunt - Seizures Maternal Grandfather - autism, fragile x [OTHER] Sister - Down Syndrome [OTHER] Brother Social History:Social History Marital status: Spouse name: Years of education: 13 Number of children: 4 Social History Main Topics Smoking status: Current Every Day Smoker Packs/day: 0.50 Years: 0.00 Types: Cigarettes Start date: 07/28/2006 Smokeless status: Current User Types: Chew Alcohol use: Yes Comment: Seldom Drug use: No Comment: Hx of drug use ANDquot;I have used everything except LSD,Ecstacy and mollyANDquot; States last use 09/2015 Sexual activity: Yes Partners with: Female, Male control/protection: Tubal Ligation Medications: Current Outpatient Prescriptions: NO122/IRON/FOLIC ACID ( MULTI ORAL) Take by mouth. aspirin, enteric coated (ASPIRIN, ENTERIC COATED) 81 mg EC tablet TAKE (1) TABLET BY MOUTH ONCE DAILY famotidine (PEPCID) 40 mg tablet TAKE (1) TABLET BY MOUTH ONCE DAILY PROAIR HFA 90 mcg/actuation inhaler INHALE TWO (2) PUFFS BY MOUTH EVERY 4 HOURS NEEDED DIRECTED fluticasone (FLOVENT) 110 mcg/actuation inhaler Inhale 2 Puffs as instructed twice daily. meloxicam (MOBIC) 15 mg tablet Take 1 tablet by mouth once daily. benzonatate (TESSALON PERLE) 100 mg capsule Take 2 capsules by mouth three times daily as needed. (Patient not taking: Reported on 11/06/2017 ) predniSONE (DELTASONE) 20 mg tablet Take 1 tablet by mouth twice daily for 5 days. (Patient not taking: Reported on 11/06/2017 ) azithromycin (ZITHROMAX Z-KOTA) 250 mg tablet Take 2 tablets day one, then, 1 tablet daily until gone. (Patient not taking: Reported on 11/06/2017 ) metroNIDAZOLE (FLAGYL) 500 mg tablet Take 1 tablet by mouth twice daily for 7 days. No current facility-administered medications for this visit. Allergies: Clindamycin; Dicyclomine; Flagyl [Metronidazole Hcl]; Keflex [Cephalexin]; Penicillin; Procardia [Nifedipine]; Progesterone Aqueous; Sulfa (Sulfonamide Antibiotics); Terbutaline ROS: General (negative for fatigue, malaise, weight loss/gain) HEENT (negative for headache, earache, recent vision changes, sinus pain, sore throat) Respiratory (no recent shortness of breath, hemoptysis) CV (negative for chest tightness, palpitations) Musculoskeletal (see HPI) Psych (no depression, anxiety) REFERRING PHYSICIAN: Ms. Fernando Rousseau was referred to me for consultation by the following physician. This consultation note will be sent to the following physician by either mail or electronic medical record. Aleisha Huang PA-C [address] [facility] [address] Melchor Gipson MD [address] [facility] [address] This note was partially generated using [employer] voice recognition system, and there may be some incorrect words, spellings, and punctuation that were not noted in checking the note before saving. Rosalba Claire PA-C Referring Provider: ALEISHA HUANG) [[id number]] Allergies As of Date: 11/06/2017 Noted Allergy Reaction CLINDAMYCIN 10/22/2015 4 - Hives 12 - Shortness of Breath DICYCLOMINE 05/25/2017 9 - Itching FLAGYL (METRONIDAZOLE HCL) 11/01/2017 9 - Itching KEFLEX (CEPHALEXIN) 10/13/2016 10 - Anaphylaxis PENICILLIN 10/22/2015 4 - Hives Comments: Per pt anything in the penicillin family she is allergic to PROCARDIA (NIFEDIPINE) 10/22/2015 4 - Hives Comments: Hives and seizures per pt PROGESTERONE AQUEOUS 10/13/2016 2 - Rash Comments: Progesterone cream only SULFA (SULFONAMIDE ANTIBIOTICS) 01/02/2017 4 - Hives TERBUTALINE 10/22/2015 4 - Hives Comments: Per pt has hives and seizures Date Reviewed: 11/06/2017 Reviewed by: Rosalba Soni) Alethea - Fully Assessed Reason for Visit: Established Patient [175] Cmt: Rigth wrist sprain - Ref. Aleisha Huang - last seen by BP 03/09/17 S/P right knee acl reconstruction with hamstring autograft and medial menisectomy Primary Visit Diagnosis:Right wrist pain [M25.531] Other Visit Diagnosis:Sprain of right wrist, initial encounter [S63.501A] Order(s):meloxicam (MOBIC) 15 mg tabletTake 1 tablet by mouth once daily.Disp: 30 tabletRfl: 1 Prescriptions as of 11/06/2017 Sig: MULTI ORAL Take by mouth. ASPIRIN 81 MG TABLET,DELAYED * TAKE (1) TABLET BY MOUTH ONCE* FAMOTIDINE 40 MG TABLET TAKE (1) TABLET BY MOUTH ONCE* PROAIR HFA 90 MCG/ACTUATION A* INHALE TWO (2) PUFFS BY MOUTH* FLUTICASONE 110 MCG/ACTUATION* Inhale 2 Puffs as instructed * MELOXICAM 15 MG TABLET Take 1 tablet by mouth once d* BENZONATATE 100 MG CAPSULE Take 2 capsules by mouth thre* Patient not taking: Reported on 11/06/2017 PREDNISONE 20 MG TABLET Take 1 tablet by mouth twice * Patient not taking: Reported on 11/06/2017 AZITHROMYCIN 250 MG TABLET Take 2 tablets day one, then,* Patient not taking: Reported on 11/06/2017 METRONIDAZOLE 500 MG TABLET Take 1 tablet by mouth twice * Medication notes this encounter FLUTICASONE 110 MCG/ACTUATION HFA AEROSOL INHALER >> Elizabeth Bautista Ma 11/06/2017 2:56 PM >> ELIZABETH BAUTISTA MA Nov 06, 2017 2:56 PM Problem List As Of Date 11/06/2017 Noted Resolved Seizures (HCC) [R56.9] INVALID FOR*12/27/2016 Previous delivery, antepartum [O09.219] INVALID FOR*12/27/2016 , high-risk [O09.90] INVALID FOR*12/27/2016 Bipolar 1 disorder (HCC) [F31.9] INVALID FOR* Recurrent loss (CODE) [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 with care elsewhere, antepar*INVALID FOR*12/27/2016 More... History of labor, current [O0*INVALID FOR*12/27/2016 More... History of labor [Z87.51] INVALID FOR*12/27/2016 More... UTI (urinary tract infection) in , ant*INVALID FOR*12/27/2016 More... History of depression [Z87.59, Z86.5*INVALID FOR*12/27/2016 History of depression [Z86.59] INVALID FOR* More... Custody issue [Z65.3] INVALID FOR*12/27/2016 More... Tobacco use during , antepartum [O99.3*INVALID FOR*12/27/2016 More... History of drug abuse [Z87.898] INVALID FOR* More... History of seizures [Z87.898] INVALID FOR*01/25/2017 More... H/O pre-eclampsia in prior , currently*INVALID FOR*12/27/2016 Family history of defects [Z82.79] INVALID FOR*01/25/2017 More... Family history of genetic disease [Z84.89] INVALID FOR*01/25/2017 More... Short interval between pregnancies affecting pr*INVALID FOR*12/27/2016 Poor historian [Z78.9] INVALID FOR* More... PTSD (post-traumatic stress disorder) [F43.10] Polysubstance abuse [F19.10] More... Migraines [G43.909] Asthma [J45.909] Anxiety [F41.9] Seizure (HCC) [R56.9] INVALID FOR* More... GERD (gastroesophageal reflux disease) [K21.9] INVALID FOR* Prescriptions ordered this encounter Disp Refills Start End MELOXICAM 15 MG TABLET 30 t* 1 11/06/2017 Route: ORAL Sig: Take 1 tablet by mouth once daily. Letter Text Fernando Wilmar Rousseau Date of - 1995 [facility] M.D. Department of Orthopaedic Surgery [address] [place] [address] Office: [phone] 11/06/2017 RE: Fernando Rousseau [phone] To Whom It May Concern: I saw Fernando Rousseau in the Department of Orthopaedic Surgery at [facility] for follow-up of her right wrist injury. Based on physical examination and medical assessment, I feel Fernando Rousseau may return to work November 07, 2017. Please allow her light duty if available. No heavy lifting, pushing, pulling or grasping for next 2 weeks. To return to full duty as of November 21, 2017 If you have any questions or require additional information, please do not hesitate to contact my office. Sincerely, Rosalba Claire PA-C Encounter Status:Closed by ROSALBA CLAIRE PA-C on 11/06/17 XR WRIST 3V PA/LAT/OBL Observed: 11/01/2017 Status: F Source: [facility] 12:37 PM [facility] * * *Final Report* * * DATE OF EXAM: Nov 01 2017 12:37PM WOX [id number] - XR WRIST 3V PA/LAT/OBL RT / PROCEDURE REASON: Unspecified injury of right wrist, hand and finger(s), initial encounter * * * * Physician Interpretation * * * * PROCEDURE: Right wrist INDICATION: Unspecified injury of right wrist, hand and finger(s), initial encounter . TECHNIQUE: XR WRIST 3V PA/LAT/OBL RT COMPARISON: None FINDINGS: No fractures or dislocations are seen. The bones, joint spaces and soft tissues are unremarkable. 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: [employer] Transcribe Date/Time: Nov 01 2017 12:45P Dictated by : LILIA ZHANG MD This examination was interpreted and the report reviewed and electronically signed by: LILIA ZHANG MD on Nov 01 2017 12:45PM EST [id number] Observed: 11/01/2017 Status: COMPLETED Source: [place] 12:32 PM [facility] [place] REPOSITORY HNO ID: [id number] Author: Nusrat Colin Rt Service: (none) Author Type: (none) Type: Progress Notes Filed: 11/01/2017 12:37 PM Note Text: Radiology Service Progress Note PATIENT NAME: Fernando Rousseau DATE OF SERVICE: November 01, 2017 TIME: 12:32 PM PATIENT IDENTITY VERIFICATION COMPLETED USING TWO (2) METHODS: Patient confirmed name verbally and Date of . PATIENT GENDER DATA: Female. status: : No status: NO. PATIENT RELEVANT IMPLANT DATA REVIEWED: Not Applicable RADIOLOGY DEPARTMENT: General X-ray: Exam(s) Completed: Upper Extremity X-Ray(s): Wrist, right : PERIPHERAL IV DATA: Not applicable SIGNED BY: Nusrat Valencia November 01, 2017 12:32 PM PROGRESS Observed: 11/01/2017 Status: COMPLETED Source: [place] 11:56 AM [facility] [place] REPOSITORY O ID: [id number] Author: Aleisha Huang (Pa) Service: (none) Author Type: Physician Downstairs Maid Type: Progress Notes Filed: 11/01/2017 1:51 PM Note Text: Subjective HPI Pt presents with right wrist pain since this am. She had tripped at work and fell landing on her right wrist. No significant problems with wrist in the past. She also has some congestion with yellow brown sputum. No fever. She did have some diarrhea, some nausea. Review of Systems Constitutional: Negative for chills and fever. HENT: Positive for congestion. Respiratory: Positive for cough. Gastrointestinal: Positive for diarrhea and nausea. Musculoskeletal: Right wrist pain Skin: Negative. All other systems reviewed and are negative. PAST MEDICAL HISTORY Diagnosis Date - Abnormal Pap smear of cervix - ADHD (attention deficit hyperactivity disorder) - Anemia - Anxiety Dr. Oliver - Asthma - Bipolar disorder (HCC) - Chlamydia 2013 - Complication of anesthesia migraines after anesthesia - Convulsions (HCC) - GERD (gastroesophageal reflux disease) - Migraines - Polysubstance abuse History. Last use of any illicit drug was September - depression - Preeclampsia - PTSD (post-traumatic stress disorder) - Reactive attachment disorder - Seizure (HCC) psychogenic non epileptic seizures - Tobacco use Current Outpatient Prescriptions: NO122/IRON/FOLIC ACID ( MULTI ORAL) Take by mouth. Disp: Rfl: aspirin, enteric coated (ASPIRIN, ENTERIC COATED) 81 mg EC tablet TAKE (1) TABLET BY MOUTH ONCE DAILY Disp: 123 tablet Rfl: 11 famotidine (PEPCID) 40 mg tablet TAKE (1) TABLET BY MOUTH ONCE DAILY Disp: 63 tablet Rfl: 2 PROAIR HFA 90 mcg/actuation inhaler INHALE TWO (2) PUFFS BY MOUTH EVERY 4 HOURS NEEDED DIRECTED Disp: 8.5 g Rfl: 11 benzonatate (TESSALON PERLE) 100 mg capsule Take 2 capsules by mouth three times daily as needed. Disp: 30 capsule Rfl: 0 predniSONE (DELTASONE) 20 mg tablet Take 1 tablet by mouth twice daily for 5 days. Disp: 10 tablet Rfl: 0 azithromycin (ZITHROMAX Z-KOTA) 250 mg tablet Take 2 tablets day one, then, 1 tablet daily until gone. Disp: 1 Package Rfl: 0 metroNIDAZOLE (FLAGYL) 500 mg tablet Take 1 tablet by mouth twice daily for 7 days. Disp: 14 tablet Rfl: 0 fluticasone (FLOVENT) 110 mcg/actuation inhaler Inhale 2 Puffs as instructed twice daily. Disp: 1 Inhaler Rfl: 2 No current facility-administered medications for this visit. PAST SURGICAL HISTORY Procedure Laterality Date - COLONOSCOP W/ OR W/O [facility] SPEC 06/12/2017 Colonoscopy [facility] - normal - Bx negative - EGD W/O OR W/BRUSH/WASH 06/12/2017 EGD - duodenitis, gastritis, superfical gastric ulcers, - EXTRACTION ERUPTED TOOTH/EXR Right - KNEE SCOPE,AID ANT CRUCIATE REPAIR Right 01/27/2017 Right knee arthroscopic ACL reconstruction with hamstring autograft and medial menisectomy - TUBAL LIGATION HX FAMILY HISTORY Problem Relation Age of Onset - Adopted: Yes - Breast Cancer Mother - Seizures Mother - Thyroid Mother - Fibromylagia [OTHER] Mother - Seizures Paternal Grandmother - Lung Cancer [OTHER] Paternal Grandmother - Coagulopathy [OTHER] Paternal Grandmother - Cervical Cancer Maternal Grandmother - Thyroid Maternal Grandmother - Seizures Maternal Grandmother - Breast Cancer Maternal Grandmother - Seizures Paternal Grandfather - Pancreatic Cancer [OTHER] Paternal Grandfather - Coagulopathy [OTHER] Paternal Grandfather - Leukemia [OTHER] Paternal Aunt - Seizures Father - Heart Father 39 [place] - Coagulopathy [OTHER] Paternal Aunt - Seizures Maternal Grandfather - autism, fragile x [OTHER] Sister - Down Syndrome [OTHER] Brother Social History Substance Use Topics - Smoking status: Current Every Day Smoker Packs/day: 0.50 Types: Cigarettes Start date: 07/28/2006 - Smokeless tobacco: Current User Types: Chew - Alcohol use Yes Comment: Seldom BP 120/84 Pulse 96 Temp 36.8 ?C (98.2 ?F) (Tympanic) Resp 18 Wt 67.7 kg (149 lb 3.2 oz) SpO2 99% BMI 26.02 kg/m2 Objective Physical Exam Constitutional: She is oriented to person, place, and time and well-developed, well-nourished, and in no distress. HENT: Head: Normocephalic and atraumatic. Right Ear: Tympanic membrane, external ear and ear canal normal. Left Ear: Tympanic membrane, external ear and ear canal normal. Nose: Mucosal edema and rhinorrhea present. Mouth/Throat: Uvula is midline, oropharynx is clear and moist and mucous membranes are normal. Clear pnd Eyes: Conjunctivae are normal. Neck: Normal range of motion. Neck supple. Cardiovascular: Normal rate, regular rhythm and normal heart sounds. Pulmonary/Chest: Effort normal. Musculoskeletal: Pt is diffusely tender on palpation of the right wrist. No bruising or swelling. No signs of trauma. Pt has limited ROM due to pain. Radial pulses 2+. No snuffbox tenderness. Normal distal sensation, cap refil brisk less than 2 seconds. Lymphadenopathy: She has no cervical adenopathy. Neurological: She is alert and oriented to person, place, and time. Skin: Skin is warm and dry. Psychiatric: Affect and judgment normal. Nursing note and vitals reviewed. ASSESSMENT/PLAN: 1. Acute bronchitis, unspecified organism - ICD9: 466.0, ICD10: J20.9 (primary diagnosis) I feel this is likely still viral. Given tessalon and prednisone and told to wait 4-5 days to fill the zpak if no improvement. She was comfortable with this plan. 2. Injury of right wrist, initial encounter - ICD9: 959.3, ICD10: S69.91XA Xrays here are negative of the wrist. I feel she has as train. Discussed ice and elevation. Already on prednisone for the bronchitis. A wrist splint was applied prior to discharge as well Discussed with patient concerning symptoms to go to the emergency department or follow up here. Pt agreeable with this plan. - XR WRIST GENERAL 3V PA/LAT/OBL RT - CONSULT TO ORTHOPAEDICS NATE Kirk Observed: 11/01/2017 Status: COMPLETED Source: [place] 11:45 AM [facility] Office Visit (WSTR) FERNANDO TRAN ([id number]) 1995 F Date Time Provider Department 11/01/17 11:45 AM ALEISHA HUANG) [facility] During your visit today, we recorded the following information about you: Temperature Pulse Respiration Blood pressure 98.2 degrees 96/minute 18/minute 120/84 Weight 67.7 kg Aleisha Huang PA-C 11/01/2017 1:51 PM Signed Subjective HPI Pt presents with right wrist pain since this am. She had tripped at work and fell landing on her right wrist. No significant problems with wrist in the past. She also has some congestion with yellow brown sputum. No fever. She did have some diarrhea, some nausea. Review of Systems Constitutional: Negative for chills and fever. HENT: Positive for congestion. Respiratory: Positive for cough. Gastrointestinal: Positive for diarrhea and nausea. Musculoskeletal: Right wrist pain Skin: Negative. All other systems reviewed and are negative. PAST MEDICAL HISTORY Diagnosis Date - Abnormal Pap smear of cervix - ADHD (attention deficit hyperactivity disorder) - Anemia - Anxiety Dr. Oliver - Asthma - Bipolar disorder (HCC) - Chlamydia 2013 - Complication of anesthesia migraines after anesthesia - Convulsions ([facility]) - GERD (gastroesophageal reflux disease) - Migraines - Polysubstance abuse History. Last use of any illicit drug was September - depression - Preeclampsia - PTSD (post-traumatic stress disorder) - Reactive attachment disorder - Seizure (HCC) psychogenic non epileptic seizures - Tobacco use Current Outpatient Prescriptions: NO122/IRON/FOLIC ACID ( MULTI ORAL) Take by mouth. Disp: Rfl: aspirin, enteric coated (ASPIRIN, ENTERIC COATED) 81 mg EC tablet TAKE (1) TABLET BY MOUTH ONCE DAILY Disp: 123 tablet Rfl: 11 famotidine (PEPCID) 40 mg tablet TAKE (1) TABLET BY MOUTH ONCE DAILY Disp: 63 tablet Rfl: 2 PROAIR HFA 90 mcg/actuation inhaler INHALE TWO (2) PUFFS BY MOUTH EVERY 4 HOURS NEEDED DIRECTED Disp: 8.5 g Rfl: 11 benzonatate (TESSALON PERLE) 100 mg capsule Take 2 capsules by mouth three times daily as needed. Disp: 30 capsule Rfl: 0 predniSONE (DELTASONE) 20 mg tablet Take 1 tablet by mouth twice daily for 5 days. Disp: 10 tablet Rfl: 0 azithromycin (ZITHROMAX Z-KOTA) 250 mg tablet Take 2 tablets day one, then, 1 tablet daily until gone. Disp: 1 Package Rfl: 0 metroNIDAZOLE (FLAGYL) 500 mg tablet Take 1 tablet by mouth twice daily for 7 days. Disp: 14 tablet Rfl: 0 fluticasone (FLOVENT) 110 mcg/actuation inhaler Inhale 2 Puffs as instructed twice daily. Disp: 1 Inhaler Rfl: 2 No current facility-administered medications for this visit. PAST SURGICAL HISTORY Procedure Laterality Date - COLONOSCOP W/ OR W/O [facility] SPEC 06/12/2017 Colonoscopy [facility] - normal - Bx negative - EGD W/O OR W/BRUSH/WASH 06/12/2017 EGD - duodenitis, gastritis, superfical gastric ulcers, - EXTRACTION ERUPTED TOOTH/EXR Right - KNEE SCOPE,AID ANT CRUCIATE REPAIR Right 01/27/2017 Right knee arthroscopic ACL reconstruction with hamstring autograft and medial menisectomy - TUBAL LIGATION HX FAMILY HISTORY Problem Relation Age of Onset - Adopted: Yes - Breast Cancer Mother - Seizures Mother - Thyroid Mother - Fibromylagia [OTHER] Mother - Seizures Paternal Grandmother - Lung Cancer [OTHER] Paternal Grandmother - Coagulopathy [OTHER] Paternal Grandmother - Cervical Cancer Maternal Grandmother - Thyroid Maternal Grandmother - Seizures Maternal Grandmother - Breast Cancer Maternal Grandmother - Seizures Paternal Grandfather - Pancreatic Cancer [OTHER] Paternal Grandfather - Coagulopathy [OTHER] Paternal Grandfather - Leukemia [OTHER] Paternal Aunt - Seizures Father - Heart Father 39 [place] - Coagulopathy [OTHER] Paternal Aunt - Seizures Maternal Grandfather - autism, fragile x [OTHER] Sister - Down Syndrome [OTHER] Brother Social History Substance Use Topics - Smoking status: Current Every Day Smoker Packs/day: 0.50 Types: Cigarettes Start date: 07/28/2006 - Smokeless tobacco: Current User Types: Chew - Alcohol use Yes Comment: Seldom BP 120/84 Pulse 96 Temp 36.8 ?C (98.2 ?F) (Tympanic) Resp 18 Wt 67.7 kg (149 lb 3.2 oz) SpO2 99% BMI 26.02 kg/m2 Objective Physical Exam Constitutional: She is oriented to person, place, and time and well-developed, well-nourished, and in no distress. HENT: Head: Normocephalic and atraumatic. Right Ear: Tympanic membrane, external ear and ear canal normal. Left Ear: Tympanic membrane, external ear and ear canal normal. Nose: Mucosal edema and rhinorrhea present. Mouth/Throat: Uvula is midline, oropharynx is clear and moist and mucous membranes are normal. Clear pnd Eyes: Conjunctivae are normal. Neck: Normal range of motion. Neck supple. Cardiovascular: Normal rate, regular rhythm and normal heart sounds. Pulmonary/Chest: Effort normal. Musculoskeletal: Pt is diffusely tender on palpation of the right wrist. No bruising or swelling. No signs of trauma. Pt has limited ROM due to pain. Radial pulses 2+. No snuffbox tenderness. Normal distal sensation, cap refil brisk less than 2 seconds. Lymphadenopathy: She has no cervical adenopathy. Neurological: She is alert and oriented to person, place, and time. Skin: Skin is warm and dry. Psychiatric: Affect and judgment normal. Nursing note and vitals reviewed. ASSESSMENT/PLAN: 1. Acute bronchitis, unspecified organism - ICD9: 466.0, ICD10: J20.9 (primary diagnosis) I feel this is likely still viral. Given tessalon and prednisone and told to wait 4-5 days to fill the zpak if no improvement. She was comfortable with this plan. 2. Injury of right wrist, initial encounter - ICD9: 959.3, ICD10: S69.91XA Xrays here are negative of the wrist. I feel she has as train. Discussed ice and elevation. Already on prednisone for the bronchitis. A wrist splint was applied prior to discharge as well Discussed with patient concerning symptoms to go to the emergency department or follow up here. Pt agreeable with this plan. - XR WRIST GENERAL 3V PA/LAT/OBL RT - CONSULT TO ORTHOPAEDICS PASTOR KirkC Referring Provider: SELF [[id number]] Allergies As of Date: 11/01/2017 Noted Allergy Reaction CLINDAMYCIN 10/22/2015 4 - Hives 12 - Shortness of Breath DICYCLOMINE 05/25/2017 9 - Itching FLAGYL (METRONIDAZOLE HCL) 11/01/2017 9 - Itching KEFLEX (CEPHALEXIN) 10/13/2016 10 - Anaphylaxis PENICILLIN 10/22/2015 4 - Hives Comments: Per pt anything in the penicillin family she is allergic to PROCARDIA (NIFEDIPINE) 10/22/2015 4 - Hives Comments: Hives and seizures per pt PROGESTERONE AQUEOUS 10/13/2016 2 - Rash Comments: Progesterone cream only SULFA (SULFONAMIDE ANTIBIOTICS) 01/02/2017 4 - Hives TERBUTALINE 10/22/2015 4 - Hives Comments: Per pt has hives and seizures Date Reviewed: 11/01/2017 Reviewed by: Azul Duran LPN - Fully Assessed Reason for Visit: right wrist pain and sinus drainage, cough [Other] Cmt: fell about 4 hours ago and sinus drainage and pressure with cough x 1 week-coughing up brown / green Primary Visit Diagnosis:Acute bronchitis, unspecified organism [J20.9] Other Visit Diagnosis:Injury of right wrist, initial encounter [S69.91XA] Order(s):benzonatate (TESSALON PERLE) 100 mg capsuleTake 2 capsules by mouth three times daily as needed.Disp: 30 capsuleRfl: 0 predniSONE (DELTASONE) 20 mg tabletTake 1 tablet by mouth twice daily for 5 days.Disp: 10 tabletRfl: 0 azithromycin (ZITHROMAX Z-KOTA) 250 mg tabletTake 2 tablets day one, then, 1 tablet daily until gone.Disp: 1 PackageRfl: 0 XR WRIST GENERAL 3V PA/LAT/OBL RT [[id number]] Order #: [id number] FUTURE CONSULT TO ORTHOPAEDICS [9040] Order #: [id number]: 1 Prescriptions as of 11/01/2017 Sig: MULTI ORAL Take by mouth. ASPIRIN 81 MG TABLET,DELAYED * TAKE (1) TABLET BY MOUTH ONCE* FAMOTIDINE 40 MG TABLET TAKE (1) TABLET BY MOUTH ONCE* PROAIR HFA 90 MCG/ACTUATION A* INHALE TWO (2) PUFFS BY MOUTH* BENZONATATE 100 MG CAPSULE Take 2 capsules by mouth thre* PREDNISONE 20 MG TABLET Take 1 tablet by mouth twice * AZITHROMYCIN 250 MG TABLET Take 2 tablets day one, then,* METRONIDAZOLE 500 MG TABLET Take 1 tablet by mouth twice * FLUTICASONE 110 MCG/ACTUATION* Inhale 2 Puffs as instructed * Medication notes this encounter METRONIDAZOLE 500 MG TABLET >> Azul Duran GROUND CREW LINES PERSON 11/01/2017 11:52 AM >> AZUL DURAN [employer]ES PERSON MonNov 01, 2017 11:52 AM Not Taking Problem List As Of Date 11/01/2017 Noted Resolved Seizures (HCC) [R56.9] INVALID FOR*12/27/2016 Previous delivery, antepartum [O09.219] INVALID FOR*12/27/2016 , high-risk [O09.90] INVALID FOR*12/27/2016 Bipolar 1 disorder (HCC) [F31.9] INVALID FOR* Recurrent loss (CODE) [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 with care elsewhere, antepar*INVALID FOR*12/27/2016 More... History of labor, current [O0*INVALID FOR*12/27/2016 More... History of labor [Z87.51] INVALID FOR*12/27/2016 More... UTI (urinary tract infection) in , ant*INVALID FOR*12/27/2016 More... History of depression [Z87.59, Z86.5*INVALID FOR*12/27/2016 History of depression [Z86.59] INVALID FOR* More... Custody issue [Z65.3] INVALID FOR*12/27/2016 More... Tobacco use during , antepartum [O99.3*INVALID FOR*12/27/2016 More... History of drug abuse [Z87.898] INVALID FOR* More... History of seizures [Z87.898] INVALID FOR*01/25/2017 More... H/O pre-eclampsia in prior , currently*INVALID FOR*12/27/2016 Family history of defects [Z82.79] INVALID FOR*01/25/2017 More... Family history of genetic disease [Z84.89] INVALID FOR*01/25/2017 More... Short interval between pregnancies affecting pr*INVALID FOR*12/27/2016 Poor historian [Z78.9] INVALID FOR* More... PTSD (post-traumatic stress disorder) [F43.10] Polysubstance abuse [F19.10] More... Migraines [G43.909] Asthma [J45.909] Anxiety [F41.9] Seizure (HCC) [R56.9] INVALID FOR* More... GERD (gastroesophageal reflux disease) [K21.9] INVALID FOR* Prescriptions ordered this encounter Disp Refills Start End BENZONATATE 100 MG CAPSULE 30 c* 0 11/01/2017 Route: ORAL Sig: Take 2 capsules by mouth three times daily as needed. PREDNISONE 20 MG TABLET 10 t* 0 11/01/2017 11/06/2017 Route: ORAL Sig: Take 1 tablet by mouth twice daily for 5 days. AZITHROMYCIN 250 MG TABLET 1 Pa* 0 11/01/2017 11/06/2017 Class: Print RX Sig: Take 2 tablets day one, then, 1 tablet daily until gone. Letter Text [facility] DONOVAN Gaspar [address] [place], [place] [address] 11/01/2017 TO WHOM IT MAY CONCERN: This is to confirm that Fernando Rousseau had an appointment and was seen at the [facility] in the Department of Urgent Care by DONOVAN Gaspar on 11/01/2017 and may return to work on 11/02/2017. She will need to wear the splint for a week with limited lifting right hand. Sincerely yours, DONOVAN Gaspar Encounter Status:Closed by ALEISHA HUANG PA-C on 11/01/17 CNPN Observed: 10/30/2017 Status: COMPLETED Source: [place] 12:00 AM [facility] Telephone (WOOB) FERNANDO TRAN ([id number]) 1995 F Date Time Provider Department 4/9/18 BRANDI LEA (HARSH) WOOB During your visit today, we recorded the following information about you: Brandi Lea APRN.HARSH 10/30/2017 12:41 PM Signed Please let the pt know that she is BV+ and that I sent in flagyl to her pharmacy for her. All other test were negative including the ultrasound. If pelvic pain continues after treating the BV then I would recommend her seeing the pelvic pain clinic. Thanks, JONATHAN Miller LPN 10/30/2017 1:23 PM Signed Pt called in and results given. Aline Bennett RN 11/06/2017 3:47 PM Signed Patient called in stating that she continues to have pain and would like to be seen at pelvic pain clinic. Phone number to make an appointment given. Patient needs to arrange transportation for her appointments. Susan Bennett RN Allergies As of Date: 10/30/2017 Noted Allergy Reaction CLINDAMYCIN 10/22/2015 4 - Hives 12 - Shortness of Breath DICYCLOMINE 05/25/2017 9 - Itching KEFLEX (CEPHALEXIN) 10/13/2016 10 - Anaphylaxis PENICILLIN 10/22/2015 4 - Hives Comments: Per pt anything in the penicillin family she is allergic to PROCARDIA (NIFEDIPINE) 10/22/2015 4 - Hives Comments: Hives and seizures per pt PROGESTERONE AQUEOUS 10/13/2016 2 - Rash Comments: Progesterone cream only SULFA (SULFONAMIDE ANTIBIOTICS) 01/02/2017 4 - Hives TERBUTALINE 10/22/2015 4 - Hives Comments: Per pt has hives and seizures Date Reviewed: 10/27/2017 Reviewed by: Leidy Lewis Ma - Fully Assessed Reason for Visit: Results [95] Order(s):metroNIDAZOLE (FLAGYL) 500 mg tabletTake 1 tablet by mouth twice daily for 7 days.Disp: 14 tabletRfl: 0 Prescriptions as of 10/30/2017 Sig: METRONIDAZOLE 500 MG TABLET Take 1 tablet by mouth twice * MULTI ORAL Take by mouth. ASPIRIN 81 MG TABLET,DELAYED * TAKE (1) TABLET BY MOUTH ONCE* FAMOTIDINE 40 MG TABLET TAKE (1) TABLET BY MOUTH ONCE* PROAIR HFA 90 MCG/ACTUATION A* INHALE TWO (2) PUFFS BY MOUTH* FLUTICASONE 110 MCG/ACTUATION* Inhale 2 Puffs as instructed * Problem List As Of Date 10/30/2017 Noted Resolved Seizures (HCC) [R56.9] INVALID FOR*12/27/2016 Previous delivery, antepartum [O09.219] INVALID FOR*12/27/2016 , high-risk [O09.90] INVALID FOR*12/27/2016 Bipolar 1 disorder (HCC) [F31.9] INVALID FOR* Recurrent loss (CODE) [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 with care elsewhere, antepar*INVALID FOR*12/27/2016 More... History of labor, current [O0*INVALID FOR*12/27/2016 More... History of labor [Z87.51] INVALID FOR*12/27/2016 More... UTI (urinary tract infection) in , ant*INVALID FOR*12/27/2016 More... History of depression [Z87.59, Z86.5*INVALID FOR*12/27/2016 History of depression [Z86.59] INVALID FOR* More... Custody issue [Z65.3] INVALID FOR*12/27/2016 More... Tobacco use during , antepartum [O99.3*INVALID FOR*12/27/2016 More... History of drug abuse [Z87.898] INVALID FOR* More... History of seizures [Z87.898] INVALID FOR*01/25/2017 More... H/O pre-eclampsia in prior , currently*INVALID FOR*12/27/2016 Family history of defects [Z82.79] INVALID FOR*01/25/2017 More... Family history of genetic disease [Z84.89] INVALID FOR*01/25/2017 More... Short interval between pregnancies affecting pr*INVALID FOR*12/27/2016 Poor historian [Z78.9] INVALID FOR* More... PTSD (post-traumatic stress disorder) [F43.10] Polysubstance abuse [F19.10] More... Migraines [G43.909] Asthma [J45.909] Anxiety [F41.9] Seizure (HCC) [R56.9] INVALID FOR* More... GERD (gastroesophageal reflux disease) [K21.9] INVALID FOR* Prescriptions ordered this encounter Disp Refills Start End METRONIDAZOLE 500 MG TABLET 14 t* 0 10/30/2017 11/06/2017 Route: ORAL Sig: Take 1 tablet by mouth twice daily for 7 days. Encounter Status:Closed by ALINE GUZMAN LPN on 10/30/17 GC/CHLAMYDIA AMPLIF Collected: 10/27/2017 Status: F Source: [place] 10:23 PM [facility] TYPE CODE TESTS RESULT OUT OF REFERENCE UNITS RANGE LAB [facility]CTSR GC/Chlam Amp Cervix Source LAB GCAMPL GC Negative Amplification for Neisseria gonorrhoeae by amplification. LAB CLAMPL Chlamydia Negative Amplif for Chlamydia trachomatis by amplification. Performed By: #### GCCT #### [facility] [address] [place], [place] [address] CNOV Observed: 10/27/2017 Status: COMPLETED Source: [place] 11:00 AM [facility] Office Visit (WOOB) FERNANDO TRAN ([id number]) 1995 F Date Time Provider Department 10/27/17 11:00 AM BRANDI LEA (HARSH) WOOB During your visit today, we recorded the following information about you: Blood pressure Weight Height Last Period 122/74 67.6 kg 1.613 m 09/02/17 Brandi Lea APRN.CNP 10/27/2017 11:43 AM Signed Ditching Machine Operator offered: Patient declines. Fernando Rousseau is a 22 year old who presents for her annual gynecologic exam with complaints, heavy and irregular bleeding, pelvic pain, vaginal dryness and pain with intercourse. Menses: cycles every 25-30 days and 5-7 days of flow. Before aug of this year they were regular but heavy Contraception: tubal ligation HPV vaccine: Yes Last Pap: 2017 normal HPV: N/A History of abnormal pap: No Last mammogram: never Sexually active: Yes Patient concerns for STD exposure: No. Pain with intercourse: Yes Postcoital bleeding: Yes Vaginal dryness: Yes Obstetric History T4 L4 SAB3 TAB1 Ectopic0 Multiple0 Live Births5 Comment: Doesn't have custody of any of her children- secondary to psycholgic diagnoses in past. All losses were followed by a wire brusher and the children delivered at home and remains were cremated except for alfonzo her 32 weeker. PAST MEDICAL HISTORY Diagnosis Date - Abnormal Pap smear of cervix - ADHD (attention deficit hyperactivity disorder) - Anemia - Anxiety Dr. Oliver - Asthma - Bipolar disorder ([facility]) - Chlamydia 2013 - Complication of anesthesia migraines after anesthesia - Convulsions (HCC) - GERD (gastroesophageal reflux disease) - Migraines - Polysubstance abuse History. 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 - Tobacco use PAST SURGICAL HISTORY Procedure Laterality Date [facility] - normal - Bx negative - EGD W/O OR W/BRUSH/WASH 06/12/2017 EGD - duodenitis, gastritis, superfical gastric ulcers, - EXTRACTION ERUPTED TOOTH/EXR Right - KNEE SCOPE,AID ANT CRUCIATE REPAIR Right 01/27/2017 Right knee arthroscopic ACL reconstruction with hamstring autograft and medial menisectomy - TUBAL LIGATION HX FAMILY HISTORY Problem Relation Age of Onset - Adopted: Yes - Breast Cancer Mother - Seizures Mother - Thyroid Mother - fibramyalgia [OTHER] Mother - Seizures Paternal Grandmother - Lung Cancer [OTHER] Paternal Grandmother - Coagulopathy [OTHER] Paternal Grandmother - Cervical Cancer Maternal Grandmother - Thyroid Maternal Grandmother - Seizures Maternal Grandmother - Breast Cancer Maternal Grandmother - Seizures Paternal Grandfather - Pancreatic Cancer [OTHER] Paternal Grandfather - Coagulopathy [OTHER] Paternal Grandfather - Leukemia [OTHER] Paternal Aunt - Seizures Father - Coagulopathy [OTHER] Father - Coagulopathy [OTHER] Paternal Aunt - Seizures Maternal Grandfather - autism, fragile x [OTHER] Sister - Down Syndrome [OTHER] Brother SOCIAL HISTORY Social History Substance Use Topics - Smoking status: Current Every Day Smoker Packs/day: 0.50 Types: Cigarettes Start date: 07/28/2006 - Smokeless tobacco: Current User Types: Chew - Alcohol use Yes Comment: Seldom REVIEW OF SYSTEMS Abdomen: yes to abdominal pain, nausea, vomiting. NO diarrhea, or constipation. Bladder: No dysuria, gross hematuria, urinary urgency, or incontinence. Urinary frequency since aug Breast: No breast lumps, overlying skin changes, redness or skin retraction. Nipple discharge that looks like milk Allergies and current medication updated:Yes EXAM: BP 122/74 Ht 5' 3.5ANDquot; (1.61m) Wt 149 lb (67.6kg) LMP 09/02/2017 BMI 25.98 kg/(m2). GENERAL: pleasant, female in no apparent distress HEENT: Normocephalic, atraumatic, mucus membranes moist and no lesions NECK: Supple, full range of motion, no adenopathy and thyroid normal DERMATOLOGY: Normal, without lesions, non-icteric and non-hirsute BREAST: soft, symmetric, no dominant mass, normal nipple-areolar complex, no lymphadenopathy and no nipple discharge CHEST: Normal inspiratory effort ABDOMEN: soft, no masses. Tenderness to lower abdomen especially in the RLQ PELVIC: external genitalia normal, normal Bartholin's glands, urethra, Boulder's glands, no vulvar lesions, no cervical lesions, good vaginal support, physiologic discharge present, normal appearing perineal body and perianal region, well estrogenized, abnormal discharge noted copious amount yellowish in color BIMANUAL: uterus normal size, shape and consistency, non-tender, no cervical motion tenderness and Moderate tenderness to the right side RECTOVAGINAL: deferred. NEURO: alert and oriented x3,exam grossly non-focal EXTREMITIES: normal ASSESSMENT/PLAN: 1) Health maintenance: Pap/HPV up to date. Nutrition, exercise and routine health maintenance exams reviewed. Calcium/Vitamin D supplementation information provided. HPV vaccine: completed series 2) Contraception: tubal ligation. Contraceptive options reviewed and information provided. 3) STD screening: Accepted STD check for Gonorrhea and Chlamydia. 4) Follow up one year or sooner as needed 5) B/O test-negative 6) BV, yeast, and Trich sent 7) pelvic ultrasound ordered for pelvic pain Brandi Lea APRN.PICTURE ENLARGER Referring Provider: BRANDI LEA (PICTURE ENLARGER) [[id number]] Allergies As of Date: 10/27/2017 Noted Allergy Reaction CLINDAMYCIN 10/22/2015 4 - Hives 12 - Shortness of Breath DICYCLOMINE 05/25/2017 9 - Itching KEFLEX (CEPHALEXIN) 10/13/2016 10 - Anaphylaxis PENICILLIN 10/22/2015 4 - Hives Comments: Per pt anything in the penicillin family she is allergic to PROCARDIA (NIFEDIPINE) 10/22/2015 4 - Hives Comments: Hives and seizures per pt PROGESTERONE AQUEOUS 10/13/2016 2 - Rash Comments: Progesterone cream only SULFA (SULFONAMIDE ANTIBIOTICS) 01/02/2017 4 - Hives TERBUTALINE 10/22/2015 4 - Hives Comments: Per pt has hives and seizures Date Reviewed: 10/27/2017 Reviewed by: Leidy Lewis Ma - Fully Assessed Primary Visit Diagnosis:Encounter for gynecological examination (general) (routine) without abnormal findings [Z01.419] Other Visit Diagnoses:Pelvic pain in female [R10.2] Screen for sexually transmitted diseases [Z11.3] Vaginal discharge [N89.8] Order(s):HCG QUAL UR B/O [[id number]] Order #: [id number] GC/CHLAMYDIA DNA DET [SQGCCAMP] Order #: [id number] PELVIC US WHI [[id number]] Order #: [id number]: 1 BACTERIAL VAGINOSIS SCORED GRAM STAIN [SQBVSTN] Order #: [id number] VAGINAL SMEAR FOR JM [SQCANSTN] Order #: [id number] TRICHOMONAS PREP [SQTRICHO] Order #: [id number] Prescriptions as of 10/27/2017 Sig: MULTI ORAL Take by mouth. ASPIRIN 81 MG TABLET,DELAYED * TAKE (1) TABLET BY MOUTH ONCE* FAMOTIDINE 40 MG TABLET TAKE (1) TABLET BY MOUTH ONCE* PROAIR HFA 90 MCG/ACTUATION A* INHALE TWO (2) PUFFS BY MOUTH* FLUTICASONE 110 MCG/ACTUATION* Inhale 2 Puffs as instructed * Problem List As Of Date 10/27/2017 Noted Resolved Seizures (HCC) [R56.9] INVALID FOR*12/27/2016 Previous delivery, antepartum [O09.219] INVALID FOR*12/27/2016 , high-risk [O09.90] INVALID FOR*12/27/2016 Bipolar 1 disorder (HCC) [F31.9] INVALID FOR* Recurrent loss (CODE) [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 with care elsewhere, antepar*INVALID FOR*12/27/2016 More... History of labor, current [O0*INVALID FOR*12/27/2016 More... History of labor [Z87.51] INVALID FOR*12/27/2016 More... UTI (urinary tract infection) in , ant*INVALID FOR*12/27/2016 More... History of depression [Z87.59, Z86.5*INVALID FOR*12/27/2016 History of depression [Z86.59] INVALID FOR* More... Custody issue [Z65.3] INVALID FOR*12/27/2016 More... Tobacco use during , antepartum [O99.3*INVALID FOR*12/27/2016 More... History of drug abuse [Z87.898] INVALID FOR* More... History of seizures [Z87.898] INVALID FOR*01/25/2017 More... H/O pre-eclampsia in prior , currently*INVALID FOR*12/27/2016 Family history of defects [Z82.79] INVALID FOR*01/25/2017 More... Family history of genetic disease [Z84.89] INVALID FOR*01/25/2017 More... Short interval between pregnancies affecting pr*INVALID FOR*12/27/2016 Poor historian [Z78.9] INVALID FOR* More... PTSD (post-traumatic stress disorder) [F43.10] Polysubstance abuse [F19.10] More... Migraines [G43.909] Asthma [J45.909] Anxiety [F41.9] Seizure (HCC) [R56.9] INVALID FOR* More... GERD (gastroesophageal reflux disease) [K21.9] INVALID FOR* Medications Discontinued During This Encounter medroxyPROGESTERone (PROVERA) 10 mg * 30 t* 6 02/24/2017 10/27/2017 Route: ORAL Sig: Take 1 tablet by mouth once daily. 10 days a month as needed to start menses Disc: Reason for discontinue is not on file. naproxen (NAPROSYN) 250 mg tablet 60 t* 2 05/25/2017 10/27/2017 Route: ORAL Sig: Take 2 tablets by mouth twice daily with meals. Disc: Reason for discontinue is not on file. Omeprazole (PRILOSEC) 40 mg capsule 60 c* 3 06/30/2017 10/27/2017 Class: Print RX Route: ORAL Sig: Take 1 capsule by mouth twice daily. Take before breakfast and evening meal. Disc: Reason for discontinue is not on file. promethazine (PHENERGAN) 25 mg tablet 30 t* 0 06/30/2017 10/27/2017 Class: Print RX Route: ORAL Sig: Take 1 tablet by mouth every 6 hours as needed. Disc: Reason for discontinue is not on file. sucralfate (CARAFATE) 1 gram tablet 120 * 3 06/30/2017 10/27/2017 Class: Print RX Route: ORAL Sig: Take 1 tablet by mouth before meals and at bedtime. Take at least 30 minutes before meals and at bedtime. Dissolve the tablet in 30cc water, stir and swallow. Disc: Reason for discontinue is not on file. topiramate (TOPAMAX) 50 mg tablet 30 t* 2 05/25/2017 10/27/2017 Route: ORAL Sig: Take 1 tablet by mouth daily at bedtime. Disc: Reason for discontinue is not on file. varenicline (CHANTIX CONTINUING NEIDA* 1 Pa* 0 05/25/2017 10/27/2017 Route: ORAL Sig: Take 1 tablet by mouth twice daily. Disc: Reason for discontinue is not on file. varenicline (CHANTIX) 0.5 mg (11)- 1* 1 Pa* 0 05/25/2017 10/27/2017 Sig: Take 0.5 mg daily x3days, then twice daily for 4 days, then 1mg twice daily for duration. Disc: Reason for discontinue is not on file. Eudoadgvk-Ipsbchmr-Eiyfg-W.Pet (HEMO* 1 Tu* 1 03/17/2017 10/27/2017 Route: RECTAL Si application by RECTAL route twice daily. Disc: Reason for discontinue is not on file. Disposition: Return in 1 year (on 10/27/2018) for Annual Exam. Follow-up and Disposition History Recorded Encounter Status:Closed by BRANDI LEA on 10/27/17 PROGRESS Observed: 10/27/2017 Status: COMPLETED Source: [place] 10:59 AM [facility] [place] REPOSITORY HNO ID: [id number] Author: Brandi Lea Service: (none) Author Type: Nurse Practitioner Type: Progress Notes Filed: 10/27/2017 11:43 AM Note Text: Ditching Machine Operator offered: Patient declines. Fernando Rousseau is a 22 year old who presents for her annual gynecologic exam with complaints, heavy and irregular bleeding, pelvic pain, vaginal dryness and pain with intercourse. Menses: cycles every 25-30 days and 5-7 days of flow. Before aug of this year they were regular but heavy Contraception: tubal ligation HPV vaccine: Yes Last Pap: 2016 normal HPV: N/A History of abnormal pap: No Last mammogram: never Sexually active: Yes Patient concerns for STD exposure: No. Pain with intercourse: Yes Postcoital bleeding: Yes Vaginal dryness: Yes Obstetric History T4 L4 SAB3 TAB1 Ectopic0 Multiple0 Live Births5 Comment: Doesn't have custody of any of her children- secondary to psycholgic diagnoses in past. All losses were followed by a wire brusher and the children delivered at home and remains were cremated except for alfonzo her 32 weeker. PAST MEDICAL HISTORY Diagnosis Date - Abnormal Pap smear of cervix - ADHD (attention deficit hyperactivity disorder) - Anemia - Anxiety Dr. Oliver - Asthma - Bipolar disorder (HCC) - Chlamydia 2013 - Complication of anesthesia migraines after anesthesia - Convulsions (HCC) - GERD (gastroesophageal reflux disease) - Migraines - Polysubstance abuse History. Last use of any illicit drug was September - depression - Preeclampsia - PTSD (post-traumatic stress disorder) - Reactive attachment disorder - Seizure (HCC) psychogenic non epileptic seizures - Tobacco use PAST SURGICAL HISTORY Procedure Laterality Date - COLONOSCOP W/ OR W/O BRSH SPEC 06/12/2017 Colonoscopy [facility] - normal - Bx negative - EGD W/O OR W/BRUSH/WASH 06/12/2017 EGD - duodenitis, gastritis, superfical gastric ulcers, - EXTRACTION ERUPTED TOOTH/EXR Right - KNEE SCOPE,AID ANT CRUCIATE REPAIR Right 01/27/2017 Right knee arthroscopic ACL reconstruction with hamstring autograft and medial menisectomy - TUBAL LIGATION HX FAMILY HISTORY Problem Relation Age of Onset - Adopted: Yes - Breast Cancer Mother - Seizures Mother - Thyroid Mother - fibramyalgia [OTHER] Mother - Seizures Paternal Grandmother - Lung Cancer [OTHER] Paternal Grandmother - Coagulopathy [OTHER] Paternal Grandmother - Cervical Cancer Maternal Grandmother - Thyroid Maternal Grandmother - Seizures Maternal Grandmother - Breast Cancer Maternal Grandmother - Seizures Paternal Grandfather - Pancreatic Cancer [OTHER] Paternal Grandfather - Coagulopathy [OTHER] Paternal Grandfather - Leukemia [OTHER] Paternal Aunt - Seizures Father - Coagulopathy [OTHER] Father - Coagulopathy [OTHER] Paternal Aunt - Seizures Maternal Grandfather - autism, fragile x [OTHER] Sister - Down Syndrome [OTHER] Brother SOCIAL HISTORY Social History Substance Use Topics - Smoking status: Current Every Day Smoker Packs/day: 0.50 Types: Cigarettes Start date: 07/28/2006 - Smokeless tobacco: Current User Types: Chew - Alcohol use Yes Comment: Seldom REVIEW OF SYSTEMS Abdomen: yes to abdominal pain, nausea, vomiting. NO diarrhea, or constipation. Bladder: No dysuria, gross hematuria, urinary urgency, or incontinence. Urinary frequency since aug Breast: No breast lumps, overlying skin changes, redness or skin retraction. Nipple discharge that looks like milk Allergies and current medication updated:Yes EXAM: BP 122/74 Ht 5' 3.5 (1.61m) Wt 149 lb (67.6kg) LMP 09/02/2017 BMI 25.98 kg/(m2). GENERAL: pleasant, female in no apparent distress HEENT: Normocephalic, atraumatic, mucus membranes moist and no lesions NECK: Supple, full range of motion, no adenopathy and thyroid normal DERMATOLOGY: Normal, without lesions, non-icteric and non-hirsute BREAST: soft, symmetric, no dominant mass, normal nipple-areolar complex, no lymphadenopathy and no nipple discharge CHEST: Normal inspiratory effort ABDOMEN: soft, no masses. Tenderness to lower abdomen especially in the RLQ PELVIC: external genitalia normal, normal Bartholin's glands, urethra, Boulder's glands, no vulvar lesions, no cervical lesions, good vaginal support, physiologic discharge present, normal appearing perineal body and perianal region, well estrogenized, abnormal discharge noted copious amount yellowish in color BIMANUAL: uterus normal size, shape and consistency, non-tender, no cervical motion tenderness and Moderate tenderness to the right side RECTOVAGINAL: deferred. NEURO: alert and oriented x3,exam grossly non-focal EXTREMITIES: normal ASSESSMENT/PLAN: 1) Health maintenance: Pap/HPV up to date. Nutrition, exercise and routine health maintenance exams reviewed. Calcium/Vitamin D supplementation information provided. HPV vaccine: completed series 2) Contraception: tubal ligation. Contraceptive options reviewed and information provided. 3) STD screening: Accepted STD check for Gonorrhea and Chlamydia. 4) Follow up one year or sooner as needed 5) B/O test-negative 6) BV, yeast, and Trich sent 7) pelvic ultrasound ordered for pelvic pain Brandi Lea APRN.CNP Observed: 10/27/2017 Status: F Source: NASHUA TRICHOMONAS PREP 3:36 AM [facility] REPOSITORY Sp. Request/Comment: - Swab Smear Result - Negative for Trichomonas vaginalis antigen This test was developed and its performance characteristics determined by [facility]'s [facility] Pathology and Laboratory Medicine [place] ([facility]). It has not been cleared or approved by the FDA. [facility] is regulated under CLIA as qualified to perform high-complexity testing. This test is used for clinical purposes. It should not be regarded as investigational or for research. Performed By: #### TRICHO #### [facility] [place] [address] Observed: 10/27/2017 Status: F Source: NASHUA BACT/CAND VAG GRM ST 3:34 AM [facility] REPOSITORY Sp. Request/Comment: - Swab Smear Result - BACTERIAL VAGINOSIS RESULT: Stain results consistent with bacterial vaginosis. --> ABNORMAL ALERT No Yeast observed Many Polymorphonuclear leukocytes Performed By: #### BVCNSM #### [facility] [place] [address] ALLERGIES ALLERGIES DATE TYPE / NAME / CODE REACTION SEVERITY SOURCE CODE 06/22/2018 Drug Penicillins/V599554 Anaphylaxis Unknown [place] Allergy/41 476(RXNORM) [facility] 5758869([facility]) Repository 06/22/2018 Drug Sulfa (Sulfonamide Hives Unknown [place] Allergy/41 Antibiotics)/G86165 Community 3281444( 0491(RXNORM) [facility]) Repository 06/22/2018 Drug nifedipine/F5660516 Angioedema Unknown [place] Allergy/41 10(RXNORM) Community 0386326([facility]) Repository 06/22/2018 Drug progesterone/H47024 Hives Unknown [place] Allergy/41 1290(RXNORM) Community 4702516([facility]) Repository 06/22/2018 Drug cephalexin/V0993643 Hives Unknown [place] Allergy/41 16(RXNORM) Community 0186990([facility]) Repository 06/22/2018 Drug clindamycin/H534521 Anaphylaxis Unknown [place] Allergy/41 794(RXNORM) Community 3777010([facility]) Repository 06/22/2018 Drug adhesive Rash SV [place] Allergy/41 tape/Z178942713(RXN Community 2517350( OR) [facility]) Repository 06/22/2018 Drug dicyclomine/M438388 Itching Unknown [place] Allergy/41 711(RXNORM) Community 4067229([facility]) Repository 06/22/2018 Drug terbutaline/L878406 Angioedema Unknown [place] Allergy/41 731(RXNORM) Community 6509742([facility]) Repository 06/22/2018 Drug ondansetron/J589880 Other Unknown [place] Allergy/41 807(RXNORM) Community 3293980([facility]) Repository 06/22/2018 Drug latex/G099716632(RX Rash SV [place] Allergy/41 NORM) Community 1547187([facility]) Repository 06/22/2018 Drug meloxicam/K13803819 Chest tightness Unknown [place] Allergy/41 2(RXNORM) Community 8961124([facility]) Repository 06/22/2018 Drug oseltamivir/A901565 Hives Unknown [place] Allergy/41 918(RXNORM) Community 8727429([facility]) Repository 01/01/2018 DRUG BENZONATATE RASH [facility] INGREDI/41 Clinic Main 9136576(SN [place] [facility]) Repository 12/20/2017 DRUG MELOXICAM OTHER: SEE C [facility] INGREDI/41 Clinic Main 2695149( [place] [facility]) Repository 11/01/2017 DRUG METRONIDAZOLE HCL ITCHING [facility] INGREDI/41 Clinic Main 4238636( [place] [facility]) Repository 05/25/2017 DRUG DICYCLOMINE ITCHING [facility] INGREDI/41 Clinic Main 9029833( [place] [facility]) Repository 01/02/2017 Drug SULFA (SULFONAMIDE HIVES [facility] Class/4195 ANTIBIOTICS) Clinic Main 86464(OM [place] ED CT) Repository 10/13/2016 DRUG CEPHALEXIN ANAPHYLAXIS [place] INGREDI/41 Clinic Main 9780373( [place] O[facility]) Repository 10/13/2016 DRUG/13402 PROGESTERONE RASH [place] 1003(SNOME AQUEOUS Clinic Main D CT) [place] Repository 10/22/2015 DRUG CLINDAMYCIN HIVES [place] INGREDI/41 Clinic Main 0168766( [place] O[facility]) Repository 10/22/2015 DRUG PENICILLIN HIVES [place] INGREDI/41 Clinic Main 9731090( [place] [facility]) Repository 10/22/2015 DRUG NIFEDIPINE HIVES [place] INGREDI/41 Clinic Main 3488625( [place] [facility]) Repository 10/22/2015 DRUG TERBUTALINE HIVES [place] INGREDI/41 Clinic Main 5891398( [place] [facility]) Repository NG/4760070 CLINDAMYCIN [facility] 06([facility]) Repository NG/7665879 DICYCLOMINE [facility] 06(SNOMED [facility]) Repository NG/8232489 METRONIDAZOLE HCL [facility] 06(SNOMED [facility]) Repository NG/4340284 CEPHALEXIN [facility] 06(SNOMED [facility]) Repository NG/7827773 MELOXICAM [facility] 06(SNOMED [facility]) Repository NG/9529754 PENICILLIN [facility] 06(SNOMED [facility]) Repository NG/5364361 NIFEDIPINE [facility] 06(SNOMED [facility]) Repository NG/3097092 PROGESTERONE [facility] 06(SNOMED AQUEOUS [facility]) Repository NG/6919243 SULFA (SULFONAMIDE [facility] 06(SNOMED ANTIBIOTICS) Health System CT) Repository NG/9935197 TERBUTALINE [facility] 06(SNOMED [facility]) Repository NG/7273901 BENZONATATE [facility] 06([employer] System CT) Repository ENCOUNTERS ENCOUNTERS ADMIT/DISCHARGE ACCOUNT NUMBER ADMITTING ENCOUNTER LOCATION SOURCE CLASS 06/28/2018 [id number] Ambulatory [facility] Repository 06/27/2018/06/28/20 [id number] Ambulatory [address] Repository 06/25/2018/06/25/20 [id number] Ambulatory [address] ding:SDCRoom Repository : AC17 05/22/2018/05/24/20 [id number] Ambulatory [address] Repository 05/15/2018/05/16/20 [id number] Ambulatory [address] Repository 05/08/2018/05/09/20 [id number] Ambulatory [address] Repository 05/08/2018/05/08/20 [id number] Emergency [address] ding:ED Repository 05/07/2018/05/07/20 [id number] Emergency BBuilding:COURTNEY [place] [address] [place] [address] Repository 05/07/2018/05/07/20 [id number] Emergency [address] ding:ED Repository 04/27/2018 [id number] Ambulatory [facility] ding:PT Repository 04/09/2018/04/11/[id number] Repository 04/05/2018/04/10/20 [id number] Ambulatory [address] Repository 04/03/2018/04/04/20 [id number] Emergency [address] ding:ED Repository 03/22/2018/03/22/20 [id number] Ambulatory [address] Repository 03/22/2018/03/22/20 [id number] Ambulatory [address] Repository 03/22/2018/03/23/20 [id number] Ambulatory [address] Repository 03/11/2018/03/11/20 [id number] Emergency [address] ding:ED Repository 03/09/2018/03/12/20 [id number] Ambulatory [address] Repository 02/27/2018 [id number] Ambulatory [facility] MEDICAL Repository CENTERBuildi ng:AKPTG 02/17/2018/02/18/20 [id number] Emergency [address] ding:ED Repository 01/11/2018/01/16/20 [id number] Ambulatory [address] Repository 01/01/2018/01/03/20 [id number] Ambulatory [address] Repository 12/25/2017 [id number] Ambulatory [facility] ding:RAD Repository 12/20/2017 [id number] Ambulatory [facility] Repository 12/20/2017/12/26/19 [id number] Ambulatory [address] Repository 11/13/2017 [id number] Ambulatory BMSBuilding: [place] BMS.[facility] Repository 11/10/2017 [id number] Ambulatory [facility] ding:LAB Repository 11/06/2017/11/09/19 [id number] Ambulatory [address] Repository 11/06/2017/11/07/19 [id number] [facility] BMSBuilding[facility] [facility] 11/01/2017/11/02/19 [id number] Ambulatory [address] Repository 11/01/2017/11/03/19 [id number] Ambulatory [address] Repository 10/27/2017/10/31/19 [id number] Ambulatory [address] Repository 10/27/2017/10/31/19 [id number] Ambulatory [address] Repository PAYERS PAYERS ENCOUNTER GUARANTOR PAYER SUBSCRIBER SOURCE 06/25/2018 FERNANDO G [id number] Primary FERNANDO G WHITEDOB: [facility] [id number] [facility] [id number], Policy Number: [facility] [address]Zmv: [phone] [id number] Repository [phone] () Date:2018-06-20 [address]ATTN: [place] [address]MW: 06/25/2018 Secondary NOT GIVENUNK [place] Insurance:SELF PAY Community [facility] Number: Effective Repository Date:2018-06-20 05/08/2018 FERNANDO Irais [id number] Primary FERNANDO G WHITEDOB: [facility] Insurance:[employer] [id number] [facility] RDAPT [id number], Policy Number: [place] [id number]: [phone] [id number] Repository [phone] () Date:2018-05-08P [address]ATTN: [place] [address]IQ: 05/08/2018 Secondary NOT GIVENUNK [place] Insurance:SELF PAY Community [facility] Hospital Number: Effective Repository Date:2018-05-08 05/07/2018 FERNANDO G WHITEDOB: Primary FERNANDO G WHITEDOB: [employer] [id number] Insurance:CARESOURCE [id number] Foundation [place] Repository [address] [id number], Number: RDAPT [place]XJC[place], [place] [id number] [place] [address]Uak: [phone] [id number] Date:2018-05-07 [phone] ()Tel: [email or web address]@[facility]ST MEDICAL CENTERel: [id number] Name:XPO Box (WP) () [address] [place] [address]TD: 05/07/2018 FERNANDO G [id number] Primary FERNANDO G WHITEDOB: [facility] Insurance:[employer] [id number] [facility] RDAPT [id number], Policy Number: [place] [id number]: [phone] [id number] Repository [phone] () Date:2018-05-07P [address]ATTN: [place] [address]KM: 05/07/2018 Secondary NOT GIVENUNK [place] Insurance:SELF PAY Community [facility] Hospital Number: Effective Repository Date:2018-05-07 04/27/2018 FERNANDO G [id number] Primary FERNANDO G WHITEDOB: [place] Insurance:[employer] [id number] Community [address] [id number], Policy Number: [facility] [address]Plv: 330 [id number] Repository [phone] (HP) Date:2017-03-24P [address]ATTN: [place] [address]US: 04/27/2018 Secondary NOT GIVENUNK [place] Insurance:SELF PAY Community [facility] Hospital Number: Effective Repository Date:2018-04-03 04/03/2018 FERNANDO G [id number] Primary FERNANDO G WHITEDOB: [place] Insurance:[employer] [id number] [facility] RDAPT [id number], Policy Number: [facility] [address]Ujt: 330 [id number] Repository [phone] () Date:2018-04-03P [address]ATTN: [place] [address]GA: 04/03/2018 Secondary NOT GIVENUNK [place] Insurance:SELF PAY Community [facility] Hospital Number: Effective Repository Date:2018-04-03 03/11/2018 FERNANDO G [id number] Primary FERNANDO G WHITEDOB: [place] Insurance:[place] [id number] [facility] RD[address] [id number], [place] Number: [facility] [address]Yom: 330 [id number] Repository [phone] () e Date:8102-17-80[address], [place] [address]AR: 03/11/2018 Secondary FERNANDO G WHITEDOB: [place] Insurance:[employer] [id number] [facility] Policy Number: Hospital [id number] Repository Date:2018-03-11P [address]ATTN: [place] [address]BH: 03/11/2018 Tertiary NOT GIVENUNK [place] Insurance:SELF PAY Community [facility] Hospital Number: Effective Repository Date:2018-03-11 02/27/2018 FERNANDO WILMAR Primary FERNANDO WILMAR [facility] WHITEDOB: [facility] [id number] MEDICAIDPolicy [id number] [facility] [address] Number: ARETHA [id number], [id number] [place] [address]Nrh: (330) Date: [phone] () 02/17/2018 FERNANDO G [id number] Primary ROSA MARIA WEIMERDOB: [place] Insurance:[place] [id number] [facility] [address] ESWOOSTCOURTNEY, [place] Number: [facility] [address]Yau: [phone]) [id number] Repository [phone] () e Date:0288-38-49VF [address] [place] [address]VR: 02/17/2018 Secondary FERNANDO G WHITEDOB: [place] Insurance:[employer] [id number] [facility] Policy Number: [facility] [id number] Repository Date:2018-02-17P [address]ATTN: [place] [address]IM: 02/17/2018 Tertiary NOT GIVENUNK [place] Insurance:SELF PAY Community [facility] Hospital Number: Effective Repository Date:2018-02-17 12/25/2017 FERNANDO [id number] Primary [facility]NANDO WHITEDOB: [facility] Insurance:[place] [id number] [facility] [address] ESWOOSTCOURTNEY, [place] Number: [facility] [address]Sbr: [phone]) [id number] Repository [phone] () e Date:2460-82-29JH [address] [place] [address]YY: 12/25/2017 Secondary FERNANDO WHITEDOB: [place] Insurance:[employer] [id number] [facility] Policy Number: Hospital [id number] Repository Date:2017-12-27P [address]ATTN: [place] [address]BM: 12/25/2017 Tertiary NOT GIVENUNK [place] Insurance:SELF PAY Community [facility] Hospital Number: Effective Repository Date:2017-12-25 11/13/2017 FERNANDO [id number] Primary FERNANDO WHITEDOB: [place] Insurance:[place] [id number] [facility] RDAPT [facility], [place] Number: [facility] [id number]: (330 [id number] Repository [phone] () e Date:7912-54-78QF [address] [place] [address]MJ: 11/13/2017 Secondary FERNANDO WHITEDOB: [place] Insurance:[employer] [id number] [facility] Policy Number: [facility] [id number] Repository Date:2017-11-06P [address]ATTN: [place] [address]YR: 11/13/2017 Tertiary NOT GIVENUNK [place] Insurance:SELF PAY Community [facility] Hospital Number: Effective Repository Date:2017-11-06 11/10/2017 FERNANDO [id number] Primary FERNANDO WHITEDOB: [place] Insurance:[place] [id number] [facility] RDAP[address] [facility], cy Number: [facility] [id number]: (330 [id number] Repository [phone] () e Date:1175-08-46GD [address] [place] [address]RX: 11/10/2017 Secondary FERNANDO WHITEDOB: [place] Insurance:[employer] [id number] [facility] Policy Number: [facility] [id number] Repository Date:2017-11-10[address]ATTN: [place] [address]JS: 11/10/2017 Tertiary NOT GIVENUNK [place] Insurance:SELF PAY [facility] Number: Effective Repository Date:2017-11-10 11/06/2017 FERNANDO [id number] Primary FERNANDO WHITEDOB: [place] Insurance:[employer] [id number] Community [address] [place] cy Number: [facility] [address]Ofl: 330 [id number] Repository [phone] () e Date:[id number], [place] [address]FO: 11/06/2017 Secondary FERNANDO WHITEDOB: [place] [facility] [id number] [facility] Policy Number: [facility] [id number] Repository Date:2017-10-09 [address]ATTN: [place] [address]ZO: 11/06/2017 Tertiary NOT GIVENUNK [place] Insurance:SELF PAY [facility] Number: Effective Repository Date:2017-11-06
== END 2018-06-25 10:18 | disposition home or self-care (01) ==
LOC: SDC 07:05 → AC 07:07
PROVIDERS: Family Provider Family Medicine; PCP Family Medicine; Referring Provider Anesthesiology Pain Medicine; Visit Provider Anesthesiology Pain Medicine
PROC: 3E0U3GC Introduction of Other Therapeutic Substance into Joints, Percutaneous Approach (ICD-10-PCS; CPT 27096; principal; 2018-06-25 08:45)
DX: M46.1 Sacroiliitis, not elsewhere classified (principal); M53.3 Sacrococcygeal disorders, not elsewhere classified; F43.10 Post-traumatic stress disorder, unspecified; Z79.899 Other long term (current) drug therapy; Z79.82 Long term (current) use of aspirin; J44.9 Chronic obstructive pulmonary disease, unspecified; G43.909 Migraine, unspecified, not intractable, without status migrainosus; F41.9 Anxiety disorder, unspecified; F31.9 Bipolar disorder, unspecified; F17.210 Nicotine dependence, cigarettes, uncomplicated; F17.220 Nicotine dependence, chewing tobacco, uncomplicated; M79.7 Fibromyalgia; Z79.891 Long term (current) use of opiate analgesic
CPT/HCPCS: 27096; 76000; 77002; J7120

== ENCOUNTER 2018-07-19 15:24 | Emergency (ER) | payer MEDICAID, SELFPAY ==
[2018-06-25 07:45] VITALS: BMI 24.0
[2018-07-19] VITALS (7 sets, daily range): BP systolic 112–120; BP diastolic 73–82; PULSE 77–110; RESP 16–20; TEMP 36.6; O2SAT 96–99; BMI 23.5
[2018-07-19 16:26] LABS: Bacteria 0 SEEN /hpf (None Seen)
--- NOTE | 2018-07-19 16:26 | CM.ED ---
SOCIAL WORK ASSESSMENT REFERRAL DATE: 07/19/18 DATE OF ASSESSMENT: 07/19/18 INFORMANT: PHYSICIAN/NURSE REASON FOR CONSULT:M INFORMATION OBTAINED FROM: LIVING ARRANGEMENTS: EMPLOYMENT/FINANCIAL: SUPPORTS: SOCIAL/FAMILY STRESSORS: MENTAL HEALTH HX: SUBSTANCE ABUSE HX: INTERVENTIONS: ASSESSMENT: PLAN:
[2018-07-19 16:29] LABS: Color, Urine Yellow (Yellow); Glucose, Dipstick Normal (Normal); Ketone-Dipstick Negative (Negative); Leukocyte Esterase-Dipstick Negative /ul (Negative); Nitrite-Dipstick Negative (Negative); Occult Blood-Urine Negative /ul (Negative); Protein-Dipstick Negative (Negative); Specific Gravity, Urine 1.015 (1.002-1.030); Urine Bilirubin Dipstick Negative (Negative); Urine Clarity Clear (Clear); Urine Urobilinogen Normal (Normal)
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
[2018-07-19 16:38] LABS: Mucous, Urine 1+ /hpf (<or=2+); Squamous Epithelial Cells - UA 0-5 SEEN /hpf (5-10)
[2018-07-19 16:38] LABS: Absolute Lymphocyte Count 2.56 X10^3/ul (0.83-4.51); Absolute Neutrophil Count 3.5 X10^3/uL (2.0-7.7); Basophil# 0.09 X10^3/uL; Basophil% 1.3 % (0-1); Eosinophil# 0.17 X10^3/uL; Eosinophils% 2.5 % (0-5); Hematocrit 43.9 % (37-47); Hemoglobin 14.7 g/dl (12.0-15.0); Lymphocyte # 2.56 X10^3/ul (4.0); Lymphocyte % 37.5 % (19-41); Mean Corp Hgb Conc 33.5 g/gl (32-36); Mean Corpuscular Hgb 29.1 pg (27.0-32.0); Mean Corpuscular Volume 86.8 fL (81-99); Mean Platelet Vol. 11.1 fl (6.2-12.0); Monocyte# 0.47 X10^3/uL; Monocyte% 6.9 % (0-10); Neutrophil # 3.53 X10^3/uL (2.7-7.7); Neutrophil % 51.7 % (47-70); Platelet Count 231 K/mm3 (150-450); RBC Distribution Width CV 13.4 % (11.6-14.6); RBC Distribution Width SD 42.3 fl (35.1-43.9); Red Blood Count 5.06 M/mm3 (4.2-5.4); White Blood Count 6.8 K/mm3 (4.4-11.0)
[2018-07-19 16:39] LABS: POSITIVE COUNT NO; POSITIVE DIFFERENTIAL NO; POSITIVE MORPHOLOGY NO
--- NOTE | 2018-07-19 16:39 | ED.DCSUM_ITS ---
- ER Visit Summary Date of Service: 07/19/18 Chief Complaint: [Depression and suicidal ideation] History of Present Illness: The patient is a 23 F [presents to the emergency department complaint of feeling depressed and suicidal for the last 2 weeks. Patient states that she has not been able to sleep well at night has been losing weight and has had decreased p.o. intake. Patient has a plan which would include overdosing on medication. Patient states she is not currently on any psychiatric medications because she was taken off by the nurse practitioner that she was seeing. Patient does have diagnoses of bipolar disorder, PTSD, anxiety, schizoaffective disorder, seizures, migraines, UTIs, asthma. Patient denies feeling homicidal. She denies any recent illness. Patient's last admission to psychiatric facility was in 2016. Patient has attempted suicide in the past. Patient at times will have visual and auditory hallucinations of her now that baby who had 1-year-old.] Physical Examination: [HEENT-PERRLA, EOMI. Cranial nerves II through XII grossly intact. TMs clear. Mucous membranes moist. No adenopathy. Cardiovascular-regular rate and rhythm without murmur or ectopy Lungs-clear to auscultation, chest wall stable without crepitus or subcu emphysema Abdomen-normoactive bowel sounds, soft, nontender, no rebound or rigidity, no peritoneal signs. Extremities-intact ?4, normal range of motion, normal pulses, atraumatic] Test Results: [CBC with differential was normal. Chemistries were normal. Urinalysis normal. HCG was negative. Tox screen was negative. Alcohol was negative.] Emergency Department Course and Treatment: [Patient to be evaluated by crisis.] Care of patient turned over to evening physician awaiting evaluation by crisis and final disposition Treatment Plan: [Pending evaluation by crisis.] Disposition: [Pending] Impression: [Depression Suicidal ideation] This note was generated with [employer] software. It may contain incorrect words, spelling, and punctuation that were not noted in review of the chart prior to signing <Chaz Shelton - Last Filed: 07/20/18 00:14> - ER Visit Summary Crisis agreed the patient needed to be further evaluated by psychiatry. Medically cleared and accepted at [facility] [place] in [place]. This note was generated with [employer] software. It may contain incorrect words, spelling, and punctuation that were not noted in review of the chart prior to signing <Mik Stallings - Last Filed: 07/20/18 04:49> ED Disposition <Chaz Shelton - Last Filed: 07/20/18 00:14> <Mik Stallings - Last Filed: 07/20/18 04:49> - Plan for ED Patient: Chief Complaint: Suicidal Referrals: Kennedy Gipson MD [Primary Care Provider] -
[2018-07-19 16:40] LABS: Red Blood Cells-Urine 0-5 SEEN /hpf (0-5); White Blood Cells 0-5 SEEN /hpf (0-5)
[2018-07-19 16:43] LABS: Alcohol, Blood (Medical)-Serum < 3.0 mg/dL
[2018-07-19 16:49] LABS: ALB/GLOB Ratio 1.1 RATIO (0.9-2.4); AST(SGOT) 16 U/L (15-37); Alanine Aminotransfer ALT/SGPT 16 U/L (13-56); Albumin, Serum 4.2 g/dL (3.2-5.0); Alkaline Phosphatase 97 U/L (45-117); Anion Gap 6 (5-15); BUN 12 mg/dL (7-18); BUN/Creat Ratio 13.4 RATIO (10-20); Calcium,Total 8.8 mg/dL (8.5-10.1); Chloride 107 mmol/L (98-107); Creatinine, Serum 0.89 mg/dL (0.55-1.02); EST Glomerular Filtration Rate 82 mL/min (>60); Est Glom Filt Rate - Afr Amer 100 mL/min (>60); Estimated Creatinine Clearance 87.71 ml/min; Globulin 3.8 g/dL (2.2-4.2); Glucose 90 mg/dL (74-106); Potassium 3.4 mmol/L (3.5-5.1); Sodium Level 139 mmol/L (136-145)
[2018-07-19 16:49] LABS: Amphetamine Urine VISTA NEGATIVE (<1000 ng/mL); Barbiturate Urine VISTA NEGATIVE (< 200 ng/mL); Benzodiazepine Urine VISTA NEGATIVE (< 200 ng/mL); Cocaine Urine VISTA NEGATIVE (< 300 ng/mL); Ecstacy Urine VISTA NEGATIVE (< 500 ng/mL); Methadone Urine VISTA NEGATIVE (< 300 ng/mL); PCP Urine VISTA NEGATIVE (< 25 ng/mL); THC Urine VISTA NEGATIVE (< 50 ng/mL); Vista UDS pH Range 5
--- NOTE | 2018-07-19 17:00 | NURSING ---
CALLED CRISIS FOR DR MARTINI. TOLD JENNIFER. PORTILLO IS GETTING REPORT
--- NOTE | 2018-07-19 17:06 | CM.ED ---
CALL TO ELIZABETH WITH CRISIS TO DISCUSS CASE. ELIZABETH STATES PT HAS BEEN ASSESSED SEVERAL TIMES AND HAS BEEN HEARING ABOUT PT'S CASE FOR OVER 3 WEEKS PT HAS CALLED INTO CRISIS MULTIPLE TIMES. CRISIS TO EVALUATE PT LATER THIS EVENING. WILL FOLLOW.
[2018-07-19 17:08] LABS: Pregnancy, Serum, hCG Quali. NEGATIVE Negative (0-9 Nonpreg)
--- NOTE | 2018-07-19 17:45 | NURSING ---
ELIZABETH, CRISIS, HERE
--- NOTE | 2018-07-19 20:03 | ED.RN ---
MT KINCAID,PT'S SIGNIFICANT OTHER,TOOK THE PT'S PURSE AND ALL CLOTHING EXCEPT TENNIS SHOES,LEGGINS AND WINTER BROWN JACKET.
--- NOTE | 2018-07-19 23:35 | ED.RN ---
SITTER AT THE BEDSIDE.
[2018-07-20 00:11] VITALS: RESP 18
--- NOTE | 2018-07-20 00:16 | ED.RN ---
PT ASKED TO WEAR HER LEGGINGS,PT ADVISED THAT PER HOSPITAL POLICY AND SAFETY OF HER SHE WAS NOT ALLOWED TO WEAR THEM.PT NOT HAPPY,EMPATHY GIVEN.SITTER AT THE BEDSIDE.
[2018-07-20] MEDS: Gabapentin 100 MG Capsule PO (00:43)
--- NOTE | 2018-07-20 02:06 | EKG12_ITS ---
Test Reason : Blood Pressure : / mmHG Vent. Rate : 075 BPM Atrial Rate : 075 BPM P-R Int : 148 ms QRS Dur : 092 ms QT Int : 388 ms P-R-T Axes : 066 082 056 degrees QTc Int : 433 ms Normal sinus rhythm Possible Left atrial enlargement Incomplete right bundle branch block Borderline ECG Confirmed by NIGEL CRUZ, WILVER ([id number]), design editor SRINATH MOORE ([id number]) on 07/23/2018 1:22:23 PM Referred By: TAL Confirmed By:WILVER MANNING MD
[2018-07-20 02:30] VITALS: BP 96/75; PULSE 75; RESP 16; O2SAT 98
[2018-07-20 04:14] VITALS: BP 108/73; PULSE 68; RESP 16; O2SAT 98
[2018-07-20 04:28] VITALS: BP 108/73; PULSE 68; RESP 16; TEMP 36.7; O2SAT 98
--- NOTE | 2018-07-20 11:43 | CM.ED ---
SOCIAL WORK NOTE THIS WORKER CALLED [facility] TO UPDATE PT WAS IN LAST EVENING FOR SUICIDAL IDEATION AND WAS PLACED AT [facility]. PT DID INFORM THIS WORKER LAST EVENING SHE HAD AN OPEN CASE WITH [facility]. REPORT MADE TO OCTOBER. INFORMED OCTOBER PT DID COME IN VOLUNTARILY AND PER PT, CHILD IS WITH GRANDMOTHER AND WILL BE WITH HIS FATHER ON MONDAY. 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 SOFÍA BRENNAN, FISHING TACKLE REPAIRER, DIRECTOR OF MATERIALS.
== END 2018-07-20 04:50 | disposition short-term general hospital (02) ==
LOC: ED 16:06
PROVIDERS: Emergency Provider Emergency Medicine; Family Provider Family Medicine; PCP Family Medicine
DX: F32.9 Major depressive disorder, single episode, unspecified (principal); R45.851 Suicidal ideations; F31.9 Bipolar disorder, unspecified; F43.10 Post-traumatic stress disorder, unspecified; F41.9 Anxiety disorder, unspecified; F25.9 Schizoaffective disorder, unspecified; G40.909 Epilepsy, unspecified, not intractable, without status epilepticus; G43.909 Migraine, unspecified, not intractable, without status migrainosus; K21.9 Gastro-esophageal reflux disease without esophagitis; J45.909 Unspecified asthma, uncomplicated; Z87.440 Personal history of urinary (tract) infections; Z79.82 Long term (current) use of aspirin; Z79.899 Other long term (current) drug therapy; Z72.0 Tobacco use
CPT/HCPCS: 80053; 80307; 80320; 81001; 84703; 85025; 93005; 99284; G0480

== ENCOUNTER → 2018-07-23 09:10 | Outpatient (CLI) | payer MEDICAID, SELFPAY ==
[2018-06-25 07:45] VITALS: BMI 24.0
[2018-07-19 15:25] VITALS: BMI 23.5
--- NOTE | 2018-07-23 09:22 | MRI_ITS ---
STUDY: MRI LUMBAR SPINE WITHOUT CONTRAST REASON FOR EXAM: Female, 23 years old. Low back pain and bilateral hip pain since age 11. TECHNIQUE: Standardized fat and water weighted pulse sequences were obtained in the sagittal and axial planes. COMPARISON: CT of the abdomen and pelvis 05/10/2017. FINDINGS: T11-T12: (Sagittal only). Normal endplates. Normal disc height, hydration and morphology. Normal central canal and bilateral intervertebral neural foramina. T12-L1: (Sagittal only). Normal endplates. Normal disc height, hydration and morphology. Normal central canal and bilateral intervertebral neural foramina. Normal lumbar lordosis. There is no substantial scoliosis. Normal conus medullaris that terminates at the lower T12 vertebral body level. L1-2: Normal endplates. Normal disc height, hydration and morphology. Normal bilateral facet joints. Normal central canal and bilateral lateral recesses. Normal bilateral intervertebral neural foramina. L2-3: Normal endplates. Normal disc height, hydration and morphology. Normal bilateral facet joints. Normal central canal and bilateral lateral recesses. Normal bilateral intervertebral neural foramina. L3-4: Normal endplates. Normal disc height, hydration and morphology. Normal bilateral facet joints. Normal central canal and bilateral lateral recesses. Normal bilateral intervertebral neural foramina. L4-5: Normal endplates. Normal disc height, hydration and morphology. Normal bilateral facet joints. Normal central canal and bilateral lateral recesses. Normal bilateral intervertebral neural foramina. L5-S1: Normal endplates. Normal disc height, hydration and morphology. Normal bilateral facet joints. Normal central canal and bilateral lateral recesses. Normal bilateral intervertebral neural foramina. Normal visualized sacral ala. Normal visualized paraspinous soft tissue structures. MRI/Spine Lumbar (Routine) IMPRESSION: Normal unenhanced MR examination of the lumbar spine. Electronically Signed: Bryce De Jesus MD at 14:08 EST , Service support ,
== END ==
PROVIDERS: Family Provider Family Medicine; PCP Family Medicine; Referring Provider Anesthesiology Pain Medicine; Visit Provider Anesthesiology Pain Medicine
DX: M54.5 Low back pain (principal); M25.559 Pain in unspecified hip
CPT/HCPCS: 72148

== ENCOUNTER 2018-08-09 19:38 | Emergency (ER) | payer MEDICAID, SELFPAY ==
[2018-07-19 15:25] VITALS: BMI 23.5
[2018-08-09 19:38] VITALS: BP 134/72; PULSE 99; RESP 18; TEMP 36.7; O2SAT 99; BMI 24.3
--- NOTE | 2018-08-09 19:52 | US_ITS ---
HISTORY: RUQ PAIN WITH NAUSEA TECHNIQUE: Transabdominal ultrasound was performed with real-time and static caputo-scale imaging. COMPARISON: CT abdomen pelvis 05/10/17. FINDINGS: # of images incl. paperwork: 127 Liver: There is normal echogenicity of the liver. The bile ducts are within normal limits. There is no demonstrated mass lesion. Gallbladder: Normal distended gallbladder. The gallbladder wall measures 2 mm. There is a negative sonographic Marshall's sign. There is no pericholecystic fluid. There are no gallstones. Common Bile Duct: The common bile duct measures 2 mm. Pancreas: There is normal echogenicity of the pancreas. There is no demonstrated pancreatic mass or cyst. Right Kidney: Normal size of the right kidney. The right kidney measures 11.3 x 4.7 x 3.4 cm. Normal renal cortex. There is no demonstrated renal mass or cyst. There is no right hydronephrosis. IVC: The IVC is patent. There is no ascites. US/Gallbladder IMPRESSION: Normal right upper quadrant abdominal ultrasound. at 2139 Reported and signed by: Mikael Richter MD Electronically Signed: Mikael Richter, at 21:34 EST Tel , Service support ,
[2018-08-09 20:06] LABS: Bacteria 0 SEEN /hpf (None Seen); Mucous, Urine 0 SEEN /hpf (<or=2+); Red Blood Cells-Urine 0 SEEN /hpf (0-5); White Blood Cells 0 SEEN /hpf (0-5)
[2018-08-09] MEDS: 0.9% Normal Saline 1,000 ML 1000 ML IV (20:06)
[2018-08-09] MEDS: Ondansetron 4 MG/2 ML Vial IV (20:06)
[2018-08-09] MEDS: Ketorolac 30 MG/ML Syringe 15 MG IV (20:06)
--- NOTE | 2018-08-09 20:09 | ED.RN ---
ZOFRAN NOT GIVEN PER PT'S ALLERGY, PT REQUESTED PHENERGAN.
[2018-08-09 20:10] LABS: Color, Urine Yellow (Yellow); Glucose, Dipstick Normal (Normal); Ketone-Dipstick Negative (Negative); Leukocyte Esterase-Dipstick Negative /ul (Negative); Nitrite-Dipstick Negative (Negative); Occult Blood-Urine Negative /ul (Negative); Protein-Dipstick Negative (Negative); Urine Bilirubin Dipstick Negative (Negative); Urine Clarity Clear (Clear); Urine Urobilinogen Normal (Normal)
[2018-08-09 20:14] LABS: Internal QC Validated? YES +Cl - CLEAR BKGD; Pregnancy, Urine Negative Negative
[2018-08-09 20:14] LABS: Absolute Lymphocyte Count 2.57 X10^3/ul (0.83-4.51); Absolute Neutrophil Count 2.4 X10^3/uL (2.0-7.7); Basophil# 0.09 X10^3/uL; Basophil% 1.5 % (0-1); Eosinophil# 0.34 X10^3/uL; Eosinophils% 5.6 % (0-5); Hematocrit 35.5 % (37-47); Hemoglobin 11.9 g/dl (12.0-15.0); Lymphocyte # 2.57 X10^3/ul (4.0); Lymphocyte % 42.1 % (19-41); Mean Corp Hgb Conc 33.5 g/gl (32-36); Mean Corpuscular Hgb 29.2 pg (27.0-32.0); Mean Corpuscular Volume 87.2 fL (81-99); Mean Platelet Vol. 11.1 fl (6.2-12.0); Monocyte# 0.75 X10^3/uL; Monocyte% 12.3 % (0-10); Neutrophil # 2.35 X10^3/uL (2.7-7.7); Neutrophil % 38.3 % (47-70); Platelet Count 215 K/mm3 (150-450); RBC Distribution Width CV 12.9 % (11.6-14.6); RBC Distribution Width SD 40.4 fl (35.1-43.9); Red Blood Count 4.07 M/mm3 (4.2-5.4); White Blood Count 6.1 K/mm3 (4.4-11.0)
[2018-08-09 20:15] LABS: POSITIVE COUNT NO; POSITIVE DIFFERENTIAL NO; POSITIVE MORPHOLOGY NO
[2018-08-09] MEDS: proMETHazine 25 MG Tablet PO (20:18)
[2018-08-09 20:24] LABS: AST(SGOT) 14 U/L (15-37); Alanine Aminotransfer ALT/SGPT 26 U/L (13-56); Albumin, Serum 3.5 g/dL (3.2-5.0); Alkaline Phosphatase 73 U/L (45-117); Anion Gap 7 (5-15); BUN 12 mg/dL (7-18); BUN/Creat Ratio 14.4 RATIO (10-20); Calcium,Total 8.1 mg/dL (8.5-10.1); Chloride 110 mmol/L (98-107); Creatinine, Serum 0.83 mg/dL (0.55-1.02); EST Glomerular Filtration Rate 90 mL/min (>60); Est Glom Filt Rate - Afr Amer 108 mL/min (>60); Estimated Creatinine Clearance 94.05 ml/min; Globulin 3.4 g/dL (2.2-4.2); Glucose 122 mg/dL (74-106); Lipase 129 U/L (73-393); Potassium 3.4 mmol/L (3.5-5.1); Protein, Total 6.9 g/dL (6.4-8.2); Sodium Level 143 mmol/L (136-145)
[2018-08-09 20:25] LABS: Squamous Epithelial Cells - UA 0-5 SEEN /hpf (5-10)
[2018-08-09 21:38] VITALS: BP 110/60; PULSE 72; RESP 16; O2SAT 99
[2018-08-09] MEDS: Morphine 4 MG/ML Syringe IV (21:39)
--- NOTE | 2018-08-09 21:48 | CT_ITS ---
HISTORY: Pain. TECHNIQUE: Helically acquired images were obtained of the abdomen and pelvis following IV contrast. A radiation dose optimization technique was used for this scan. IV Contrast dosage and agent: 75 cc Isovue-370 administered intravenously. Oral contrast: None. COMPARISON: 05/10/17 CT abdomen pelvis. Right upper abdominal ultrasound performed earlier today. FINDINGS: # of images incl. paperwork: 365 LOWER CHEST: Lung bases are clear. No cardiomegaly or pericardial effusion observed. LIVER: Homogeneous. No focal mass. GALLBLADDER AND BILIARY TREE: No calcified gallstones. There is no gallbladder distension or wall edema. No intra- or extrahepatic biliary ductal dilation. KIDNEYS AND URETERS: Normal renal size and position. There is no hydronephrosis. ADRENAL GLANDS: Non-enlarged. SPLEEN: Normal size without focal cystic or solid mass. PANCREAS: No focal cystic or solid mass. BOWEL: No stomach or bowel distension. No focal inflammatory change observed. Appendix not visible, no evidence of appendicitis. Prominent stool throughout the large bowel. LYMPH NODES: No enlarged mesenteric or retroperitoneal lymph nodes. PERITONEUM: No ascites or free air. No other fluid collection. VESSELS: Aorta is non-dilated. URINARY BLADDER: Unremarkable. REPRODUCTIVE ORGANS: Uterus and ovaries normal. Bilateral tubal ligation clips are noted. ABDOMINAL WALL: No discrete abdominal or pelvic wall hernia observed. BONES: No lytic or blastic abnormality observed. CT/Abdomen/Pelvis W IV Cont ONLY IMPRESSION: No acute findings. Prominent stool suspicious for constipation. Individualized dose optimization techniques were used for this CT. at 2229 Reported and signed by: Mikael Richter MD Electronically Signed: Mikael Richter, at 22:28 EST Tel , Service support ,
--- NOTE | 2018-08-09 22:38 | ED.VISSUMM ---
- ER Visit Summary Date of Service: 08/09/18 Chief Complaint: Abdominal pain History of Present Illness: The patient is a 23 F presenting for evaluation secondary to abdominal pain. Patient reports that she has had abdominal pain over the course of the last 2-3 days. Located in her right upper quadrant is continuous and waxing and waning. This been associated with some mild nausea. She denies any presence of vomiting diarrhea or urinary signs or symptoms. She denies any presence of fevers. Review of systems otherwise negative. Physical Examination: Exam unremarkable other than Abdominal exam. RUQ tenderness with positive murphys sign. No guarding or rebound. Test Results: CBC chemistry lipase urinalysis unremarkable. Right upper quadrant ultrasound negative. CT shows constipation. Emergency Department Course and Treatment: Patient presented for evaluation secondary to abdominal pain. Workup was negative as noted above. Pain was controlled with Toradol and morphine. Repeat abdominal exam demonstrates benign abdomen. Given patient's constipation should be given a dose of lactulose and discharged with a course of the same. Disposition: Discharge Impression: 1. Right upper quadrant abdominal pain This note was generated with [employer] dictation software. It may contain incorrect words, spelling, and punctuation that were not noted in review of the chart prior to signing ED Disposition - Plan for ED Patient: Disposition: Home or Assisted Living Chief Complaint: Flank Pain Diagnosis: Constipation Instructions: ED Constipation Prescriptions: RX: Lactulose 10 gm PO DAILY #50 ml Referrals: Kennedy Gipson MD [Primary Care Provider] - As Needed
[2018-08-09] MEDS: Lactulose 20 GM/30 ML UDC PO (22:55)
--- OUTSIDE RECORDS SUMMARY | 2018-10-14 12:45 | XMS RPT_ITS ---
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 Ear canal normal. No drainage. Tympanic membrane is not perforated, not erythematous, not retracted and not bulging. No middle ear effusion. Nose: Mucosal edema present. Rhinorrhea: Mucopurulent. Right sinus exhibits no maxillary sinus tenderness and no frontal sinus tenderness. Left sinus exhibits no maxillary sinus tenderness and no frontal sinus tenderness. Mouth/Throat: Uvula is midline and mucous membranes are normal. No oropharyngeal exudate, posterior oropharyngeal edema, posterior oropharyngeal erythema or tonsillar abscesses. Eyes: Conjunctivae and lids are normal. Cardiovascular: Normal rate, regular rhythm, S1 normal and S2 normal. Exam reveals no friction rub. Pulmonary/Chest: Effort normal and breath sounds normal. She has no wheezes. She has no rhonchi. She has no rales. Lymphadenopathy: Head (right side): No submental, no submandibular, no tonsillar, no preauricular, no posterior auricular and no occipital adenopathy present. Head (left side): No submental, no submandibular, no tonsillar, no preauricular, no posterior auricular and no occipital adenopathy present. Right cervical: No superficial cervical and no posterior cervical adenopathy present. Left cervical: No superficial cervical and no posterior cervical adenopathy present. Neurological: She is oriented to person, place, and time. ASSESSMENT/PLAN: 1. Acute non-recurrent sinusitis, unspecified location - ICD9: 461.9, ICD10: J01.90 (primary diagnosis) - Will CCM w/ doxy and add in fluticasone nasal as pt did not tolerate prednisone okay - FLUTICASONE 50 MCG/ACTUATION NASAL SPRAY,SUSPENSION 2. Medication reaction, initial encounter - ICD9: E947.9, ICD10: T50.905A D/c prednisone -- see above Pt advised to see PCP if symptoms persist or progress. Reviewed red flags with patient and when to seek care sooner. The patient indicates understanding of these issues and agrees with the plan. Yessica King PA-C Referring Provider: SELF [200] Allergies As of Date: 08/06/2018 Noted Allergy Reaction CLINDAMYCIN 10/22/2015 4 - Hives 12 - Shortness of Breath DICYCLOMINE 05/25/2017 9 - Itching FLAGYL (METRONIDAZOLE HCL) 11/01/2017 9 - Itching KEFLEX (CEPHALEXIN) 10/13/2016 10 - Anaphylaxis MOBIC (MELOXICAM) 12/20/2017 14 - Other: See Comments Comments: Chest pain PENICILLIN 10/22/2015 4 - Hives Comments: Per pt anything in the penicillin family she is allergic to PREDNISONE 08/06/2018 2 - Rash 7 - Swelling Comments: Rash and tongue swelling 20 mins after taking prednisone PROCARDIA (NIFEDIPINE) 10/22/2015 4 - Hives Comments: Hives and seizures per pt PROGESTERONE AQUEOUS 10/13/2016 2 - Rash Comments: Progesterone cream only SULFA (SULFONAMIDE ANTIBIOTICS) 01/02/2017 4 - Hives TERBUTALINE 10/22/2015 4 - Hives Comments: Per pt has hives and seizures TESSALON (BENZONATATE) 01/01/2018 2 - Rash Date Reviewed: 08/06/2018 Reviewed by: Danna Valdovinos Ma - Fully Assessed Reason for Visit: Cough [28] Cmt: nasal drainage on doxycycline and prednisone x 10. rash and itching with prednisone and tongue swelling Reason For Visit History Recorded Primary Visit Diagnosis:Acute non-recurrent sinusitis, unspecified location [J01.90] Other Visit Diagnosis:Medication reaction, initial encounter [T50.905A] Order(s):fluticasone (FLONASE) 50 mcg/actuation nasal sprayUse 2 Sprays in each nostril once daily. Rinse mouth after use.Disp: 1 BottleRfl: 11 Prescriptions as of 08/06/2018 Sig: ESCITALOPRAM 5 MG TABLET Take 5 mg by mouth. RISPERIDONE 0.5 MG TABLET Take 0.5 mg by mouth daily at* DOXYCYCLINE MONOHYDRATE 100 M* Take 1 tablet by mouth twice * FLOVENT HFA 110 MCG/ACTUATION* Inhale 2 Puffs as instructed * NICOTINE 21 MG/24 HR DAILY TR* Apply 1 Patch as directed stephanie* NABUMETONE 750 MG TABLET Take 750 mg by mouth twice da* GABAPENTIN 100 MG CAPSULE Take 1 capsule by mouth three* ALBUTEROL SULFATE HFA 90 MCG/* Inhale 2 Puffs as instructed * NORETHINDRONE 1.5 MG-ETHINYL * Take 1 tablet by mouth once d* OMEPRAZOLE 40 MG CAPSULE,KAREY* Take 1 capsule by mouth once * POLYETHYLENE GLYCOL 3350 17 G* Take 17 g by mouth once daily* VIT NO.95-FERROUS FU* Take 1 tablet by mouth once d* PROMETHAZINE 25 MG TABLET Take 1 tablet by mouth every * MECLIZINE 25 MG TABLET Take 1 tablet by mouth every * TOPIRAMATE 50 MG TABLET Take 1 tablet by mouth twice * TRAMADOL 50 MG TABLET CYCLOBENZAPRINE 10 MG TABLET Take 1 tablet by mouth three * FLUTICASONE 50 MCG/ACTUATION * Use 2 Sprays in each nostril * Problem List As Of Date 08/06/2018 Noted Resolved Seizures (HCC) [R56.9] INVALID FOR*12/27/2016 [...] ordered this encounter Disp Refills Start End FLUTICASONE 50 MCG/ACTUATION NASAL S* 1 Ian* 11 08/06/2018 Route: EACH NOSTRIL Sig: Use 2 Sprays in each nostril once daily. Rinse mouth after use. Medications Discontinued During This Encounter predniSONE (DELTASONE) 20 mg tablet 10 t* 0 08/02/2018 08/06/2018 Route: ORAL Sig: Take 2 tablets by mouth once daily for 5 days. Patient not taking: Reported on 08/06/2018 Disc: Reason for discontinue is not on file. Encounter Status:Closed by YESSICA KING on 08/06/18 PROGRESS Observed: 08/02/2018 Status: COMPLETED Source: [place] 2:[address] [facility] REPOSITORY HNO ID: [id number] Author: Jessica (Atomic Process Engineer) Service: (none) Author Type: Nurse Practitioner Type: Progress Notes Filed: 08/02/2018 2:59 PM Note Text: Subjective HPI HPI Fernando Rousseau is a 23 year old female who presents today for CC of sore throat, cough. This started over 2 weeks ago. Has tried otc medication. Symptoms are worsened by smoking. Risk factors everyday smoker. .Patient presents with: Cough Throat Problem PAST MEDICAL HISTORY Diagnosis Date - Abnormal Pap smear of cervix - ADHD (attention deficit hyperactivity disorder) - Anemia - Anxiety [facility] - Asthma - Bipolar disorder (HCC) - Chlamydia 2013 - Complication of anesthesia migraines after anesthesia - Convulsions (HCC) - GERD (gastroesophageal reflux disease) - Migraines - Polysubstance abuse ([facility]) History. Last use of any illicit drug [...] Sulfa (Sulfonamide Antibiotics); Terbutaline; Tessalon [Benzonatate] MEDICATIONS escitalopram oxalate (LEXAPRO) 5 mg tablet Take 5 mg by mouth. risperiDONE (RISPERDAL) 0.5 mg tablet Take 0.5 mg by mouth daily at bedtime. FLOVENT HFA 110 mcg/actuation inhaler Inhale 2 Puffs as instructed twice daily. nicotine (NICODERM) 21 mg/24 hr Apply 1 Patch as directed every 24 hours. nabumetone (RELAFEN) 750 mg tablet Take 750 mg by mouth twice daily. gabapentin (NEURONTIN) 100 mg capsule Take 1 capsule by mouth three times daily for 31 days. albuterol HFA (PROAIR HFA) 90 mcg/actuation inhaler Inhale 2 Puffs as instructed every 4 hours as needed. Norethin Chinmay-Eth Estrad-FE (LOESTRIN FE 1.5/30) 1.5 mg-30 mcg (21)/75 mg (7) tablet Take 1 tablet by mouth once daily. Omeprazole 40 mg capsule Take 1 capsule by mouth once daily. polyethylene glycol 3350 (MIRALAX, GLYCOLAX) 17 gram/dose powder Take 17 g by mouth once daily. This is one (1) capful in 8oz of liquid each day. vit-iron fumarate-fa () 28 mg iron- 800 mcg tab Take 1 tablet by mouth once daily. promethazine (PHENERGAN) 25 mg tablet Take 1 tablet by mouth every 6 hours as needed. meclizine (ANTIVERT) 25 mg tab Take 1 tablet by mouth every 6 hours as needed (dizziness). topiramate (TOPAMAX) 50 mg tablet Take 1 tablet by mouth twice daily. cyclobenzaprine (FLEXERIL) 10 mg tablet Take 1 tablet by mouth three times daily as needed. predniSONE (DELTASONE) 20 mg tablet Take 2 tablets by mouth once daily. 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 HENT: Positive for congestion and sore throat. Negative for ear pain and nosebleeds. Respiratory: Positive for cough and sputum production (yellow). Negative for shortness of breath and wheezing. Cardiovascular: Negative for chest pain. Musculoskeletal: Negative for neck pain. Skin: Negative for itching and rash. Objective Blood pressure 80/60, pulse 78, temperature 36.8 ?C (98.3 ?F), temperature source Left Tympanic, resp. rate 14, weight 64 kg (141 lb), SpO2 98 %, not currently . recheck bp 104/60 Physical Exam Constitutional: She is oriented to person, place, and time and well-developed, well-nourished, and in no distress. Non-toxic appearance. She does not have a sickly appearance. No distress. HENT: Head: Normocephalic and atraumatic. Right Ear: Hearing, tympanic membrane, external ear and ear canal normal. Left Ear: Hearing, tympanic membrane, external ear and ear canal normal. Nose: Nose normal. Mouth/Throat: Uvula is midline, oropharynx is clear and moist and mucous membranes are normal. Eyes: Pupils are equal, round, and reactive to light. Conjunctivae and lids are normal. Right eye exhibits no discharge. Left eye exhibits no discharge. No scleral icterus. Neck: Trachea normal and normal range of motion. Neck supple. Cardiovascular: Normal rate, regular rhythm and normal heart sounds. Pulmonary/Chest: Effort normal and breath sounds normal. Lymphadenopathy: She has no cervical adenopathy. Neurological: She is alert and oriented to person, place, and time. Skin: No rash noted. She is not diaphoretic. ASSESSMENT/PLAN: 1. Lower resp. tract infection - ICD9: 519.8, ICD10: J22 - Discussed supportive care - Limit exposure to smoke and other inhaled irritants - Discussed possible red flags and when to seek medical attention - Follow up in 3-5 days or sooner if no better or worse -If you experience chest pain/shortness of breath go to ER -discussed smoking cessation - ESCITALOPRAM 5 MG TABLET - RISPERIDONE 0.5 MG TABLET - PREDNISONE 20 MG TABLET - DOXYCYCLINE MONOHYDRATE 100 MG TABLET Prescription instructions reviewed with patient as applicable. Patient advised if symptoms do not improve or if symptoms worsen sooner, to contact the office for further evaluation by their primary care physician. Potential red flag symptoms discussed with the patient. Reviewed appropriate action plan to take if red flag symptoms occur. Patient agreeable to treatment plan. Jessica Wilson APRN.CNP CNOV Observed: 08/02/2018 Status: COMPLETED Source: [place] 2:30 PM [facility] REPOSITORY Office Visit ([facility]) FERNANDO ROUSSEAU ([id number]) 1995 F Date Time Provider Department 08/02/18 2:30 PM JESSICA WILSON (RAI) [facility]STR During your visit today, we recorded the following information about you: Temperature Pulse Respiration Blood pressure 98.3 degrees 78/minute 14/minute 104/60 Weight 64 kg Jessica Wilson APRN.CNP 08/02/2018 2:59 PM Signed Subjective HPI HPI Fernando Rousseau is a 23 year old female who presents today for CC of sore throat, cough. This started over 2 weeks ago. Has tried otc medication. Symptoms are worsened by smoking. Risk factors everyday smoker. .Patient presents with: Cough Throat Problem PAST MEDICAL HISTORY Diagnosis Date - Abnormal Pap smear of cervix - ADHD (attention deficit hyperactivity disorder) - Anemia - Anxiety [facility] - Asthma - Bipolar disorder (HCC) - Chlamydia 2013 - Complication of anesthesia migraines after anesthesia - Convulsions ([facility]) - GERD (gastroesophageal reflux disease) - Migraines - Polysubstance abuse ([facility]) History. Last use of any illicit drug was September - depression - Preeclampsia - PTSD (post-traumatic stress disorder) - Reactive attachment disorder - Seizure ([facility]) psychogenic non epileptic seizures - Tobacco use PAST SURGICAL HISTORY Procedure Laterality Date - COLONOSCOP W/ OR W/O [facility] SPEC 06/12/2017 Colonoscopy [facility] - normal - Bx negative - EGD [...] Sulfa (Sulfonamide Antibiotics); Terbutaline; Tessalon [Benzonatate] MEDICATIONS escitalopram oxalate (LEXAPRO) 5 mg tablet Take 5 mg by mouth. risperiDONE (RISPERDAL) 0.5 mg tablet Take 0.5 mg by mouth daily at bedtime. FLOVENT HFA 110 mcg/actuation inhaler Inhale 2 Puffs as instructed twice daily. nicotine (NICODERM) 21 mg/24 hr Apply 1 Patch as directed every 24 hours. nabumetone (RELAFEN) 750 mg tablet Take 750 mg by mouth twice daily. gabapentin (NEURONTIN) 100 mg capsule Take 1 capsule by mouth three times daily for 31 days. albuterol HFA (PROAIR HFA) 90 mcg/actuation inhaler Inhale 2 Puffs as instructed every 4 hours as needed. Norethin Chinmay-Eth Estrad-FE (LOESTRIN FE 1.5/30) 1.5 mg-30 mcg (21)/75 mg (7) tablet Take 1 tablet by mouth once daily. Omeprazole 40 mg capsule Take 1 capsule by mouth once daily. polyethylene glycol 3350 (MIRALAX, GLYCOLAX) 17 gram/dose powder Take 17 g by mouth once daily. This is one (1) capful in 8oz of liquid each day. vit-iron fumarate-fa () 28 mg iron- 800 mcg tab Take 1 tablet by mouth once daily. promethazine (PHENERGAN) 25 mg tablet Take 1 tablet by mouth every 6 hours as needed. meclizine (ANTIVERT) 25 mg tab Take 1 tablet by mouth every 6 hours as needed (dizziness). topiramate (TOPAMAX) 50 mg tablet Take 1 tablet by mouth twice daily. cyclobenzaprine (FLEXERIL) 10 mg tablet Take 1 tablet by mouth three times daily as needed. predniSONE (DELTASONE) 20 mg tablet Take 2 tablets by mouth once daily. 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 HENT: Positive for congestion and sore throat. Negative for ear pain and nosebleeds. Respiratory: Positive for cough and sputum production (yellow). Negative for shortness of breath and wheezing. Cardiovascular: Negative for chest pain. Musculoskeletal: Negative for neck pain. Skin: Negative for itching and rash. Objective Blood pressure 80/60, pulse 78, temperature 36.8 ?C (98.3 ?F), temperature source Left Tympanic, resp. rate 14, weight 64 kg (141 lb), SpO2 98 %, not currently . recheck bp 104/60 Physical Exam Constitutional: She is oriented to person, place, and time and well-developed, well-nourished, and in no distress. Non-toxic appearance. She does not have a sickly appearance. No distress. HENT: Head: Normocephalic and atraumatic. Right Ear: Hearing, tympanic membrane, external ear and ear canal normal. Left Ear: Hearing, tympanic membrane, external ear and ear canal normal. Nose: Nose normal. Mouth/Throat: Uvula is midline, oropharynx is clear and moist and mucous membranes are normal. Eyes: Pupils are equal, round, and reactive to light. Conjunctivae and lids are normal. Right eye exhibits no discharge. Left eye exhibits no discharge. No scleral icterus. Neck: Trachea normal and normal range of motion. Neck supple. Cardiovascular: Normal rate, regular rhythm and normal heart sounds. Pulmonary/Chest: Effort normal and breath sounds normal. Lymphadenopathy: She has no cervical adenopathy. Neurological: She is alert and oriented to person, place, and time. Skin: No rash noted. She is not diaphoretic. ASSESSMENT/PLAN: 1. Lower resp. tract infection - ICD9: 519.8, ICD10: J22 - Discussed supportive care - Limit exposure to smoke and other inhaled irritants - Discussed possible red flags and when to seek medical attention - Follow up in 3-5 days or sooner if no better or worse -If you experience chest pain/shortness of breath go to ER -discussed smoking cessation - ESCITALOPRAM 5 MG TABLET - RISPERIDONE 0.5 MG TABLET - PREDNISONE 20 MG TABLET - DOXYCYCLINE MONOHYDRATE 100 MG TABLET Prescription instructions reviewed with patient as applicable. Patient advised if symptoms do not improve or if symptoms worsen sooner, to contact the office for further evaluation by their primary care physician. Potential red flag symptoms discussed with the patient. Reviewed appropriate action plan to take if red flag symptoms occur. Patient agreeable to treatment plan. Jessica Wilson APRN.RAI Wilson APRN.RAI 08/02/2018 2:55 PM Signed ASSESSMENT/PLAN: 1. Lower resp. tract infection - ICD9: 519.8, ICD10: J22 - Discussed supportive care - Limit exposure to smoke and other inhaled irritants - Discussed possible red flags and when to seek medical attention - Follow up in 3-5 days or sooner if no better or worse -If you experience chest pain/shortness of breath go to ER - ESCITALOPRAM 5 MG TABLET - RISPERIDONE 0.5 MG TABLET - PREDNISONE 20 MG TABLET - DOXYCYCLINE MONOHYDRATE 100 MG TABLET Referring Provider: SELF [200] Allergies As of Date: 08/02/2018 Noted Allergy Reaction CLINDAMYCIN 10/22/2015 4 - [...] (BENZONATATE) 01/01/2018 2 - Rash Date Reviewed: 08/02/2018 [facility]ed [facility]: [facility] - Fully Assessed Reason for Visit: Cough [28] Throat Problem [109] Primary Visit Diagnosis:Lower resp. tract infection [J22] Order(s):predniSONE (DELTASONE) 20 mg tabletTake 2 tablets by mouth once daily for 5 days.Disp: 10 tabletRfl: 0 doxycycline monohydrate 100 mg tabletTake 1 tablet by mouth twice daily for 10 days.Disp: 20 tabletRfl: 0 Prescriptions as of 08/02/2018 Sig: ESCITALOPRAM 5 MG TABLET Take 5 mg by mouth. RISPERIDONE 0.5 MG TABLET Take 0.5 mg by mouth daily at* FLOVENT HFA 110 MCG/ACTUATION* Inhale 2 Puffs as instructed * NICOTINE 21 MG/24 HR DAILY TR* Apply 1 Patch as directed stephanie* NABUMETONE 750 MG TABLET Take 750 mg by mouth twice da* GABAPENTIN 100 MG CAPSULE Take 1 capsule by mouth three* ALBUTEROL SULFATE HFA 90 MCG/* Inhale 2 Puffs as instructed * NORETHINDRONE 1.5 MG-ETHINYL * Take 1 tablet by mouth once d* OMEPRAZOLE 40 MG CAPSULE,KAREY* Take 1 capsule by mouth once * POLYETHYLENE GLYCOL 3350 17 G* Take 17 g by mouth once daily* VIT NO.95-FERROUS FU* Take 1 tablet by mouth once d* PROMETHAZINE 25 MG TABLET Take 1 tablet by mouth every * MECLIZINE 25 MG TABLET Take 1 tablet by mouth every * TOPIRAMATE 50 MG TABLET Take 1 tablet by mouth twice * CYCLOBENZAPRINE 10 MG TABLET Take 1 tablet by mouth three * PREDNISONE 20 MG TABLET Take 2 tablets by mouth once * DOXYCYCLINE MONOHYDRATE 100 M* Take 1 tablet by mouth twice * TRAMADOL 50 MG TABLET Problem List As Of Date 08/02/2018 Noted Resolved Seizures (HCC) [R56.9] INVALID FOR*12/27/2016 [...] Other instructions from your clinician: ASSESSMENT/PLAN: 1. Lower resp. tract infection - ICD9: 519.8, ICD10: J22 - Discussed supportive care - Limit exposure to smoke and other inhaled irritants - Discussed possible red flags and when to seek medical attention - Follow up in 3-5 days or sooner if no better or worse -If you experience chest pain/shortness of breath go to ER - ESCITALOPRAM 5 MG TABLET - RISPERIDONE 0.5 MG TABLET - PREDNISONE 20 MG TABLET - DOXYCYCLINE MONOHYDRATE 100 MG TABLET Prescriptions ordered this encounter Disp Refills Start End PREDNISONE 20 MG TABLET 10 t* 0 08/02/2018 08/07/2018 Route: ORAL Sig: Take 2 tablets by mouth once daily for 5 days. DOXYCYCLINE MONOHYDRATE 100 MG TABLET 20 t* 0 08/02/2018 08/12/2018 Cmt: May transfer to [facility] if less expensive. Route: ORAL Sig: Take 1 tablet by mouth twice daily for 10 days. Medications Discontinued During This Encounter predniSONE (DELTASONE) 20 mg tablet 4 ta* 0 05/22/2018 08/02/2018 Route: ORAL Sig: Take 2 tablets by mouth once daily. Disc: Reason for discontinue is not on file. Letter Text [place] [facility] Jessica Wilson CNP [address], [place] [address] 08/02/2018 Fernando Rousseau [facility]# [id number] [address] [place] [address] [address] [facility] [address] TO WHOM IT MAY CONCERN: This is to confirm that Fernando Rousseau had an appointment and was seen at the [facility] in the Department of Urgent Care by Jessica Wilson CNP on 08/02/2018. Sincerely yours, Jessica Wilson CNP Encounter Status:Closed by JESSICA WILSON CNP on 08/02/18 EMERGENCY DEPARTMENT Observed: 07/28/2018 Status: F Source: [place] SUMMARY 8:05 AM [facility] REPOSITORY [facility] Medical Records Department [address] [place] [address] Emergency Department Summary 07/19/18 1638 MR#: [id number] Acct: [id number] Name: FERNANDO ROUSSEAU Rep #: [id number] : 1995 23 From: Chaz Shelton DO PCP: Kennedy Gipson MD Status: DEP ER - ER Visit Summary Date of Service: 07/19/18 Chief Complaint: [Depression and suicidal ideation] History of Present Illness: The patient is a 23 F [presents to the emergency department complaint of feeling depressed and suicidal for the last 2 weeks. Patient states that she has not been able to sleep well at night has been losing weight and has had decreased p.o. intake. Patient has a plan which would include overdosing on medication. Patient states she is not currently on any psychiatric medications because she was taken off by the nurse practitioner that she was seeing. Patient does have diagnoses of bipolar disorder, PTSD, anxiety, schizoaffective disorder, seizures, migraines, UTIs, asthma. Patient denies feeling homicidal. She denies any recent illness. Patient's last admission to psychiatric facility was in 2016. Patient has attempted suicide in the past. Patient at times will have visual and auditory hallucinations of her now that baby who had 1-year-old.] Physical Examination: [HEENT-PERRLA, EOMI. Cranial nerves II through XII grossly intact. TMs clear. Mucous membranes moist. No adenopathy. Cardiovascular-regular rate and rhythm without murmur or ectopy Lungs-clear to auscultation, chest wall stable without crepitus or subcu emphysema Abdomen-normoactive bowel sounds, soft, nontender, no rebound or rigidity, no peritoneal signs. Extremities-intact 4, normal range of motion, normal pulses, atraumatic] Test Results: [CBC with differential was normal. Chemistries were normal. Urinalysis normal. HCG was negative. Tox screen was negative. Alcohol was negative.] Emergency Department Course and Treatment: [Patient to be evaluated by crisis.] Care of patient turned over to evening physician awaiting evaluation by crisis and final disposition Treatment Plan: [Pending evaluation by crisis.] Disposition: [Pending] Impression: [Depression Suicidal ideation] This note was generated with [employer] software. It may contain incorrect words, spelling, and punctuation that were not noted in review of the chart prior to signing <Chaz Shelton - Last Filed: 07/20/18 00:14> - ER Visit Summary Crisis agreed the patient needed to be further evaluated by psychiatry. Medically cleared and [facility] at [facility] [facility] in [place]. This note was generated with [employer] software. It may contain incorrect words, spelling, and punctuation that were not noted in review of the chart prior to signing <Mik Parada - Last Filed: 07/20/18 04:49> ED Disposition <Chaz Shelton - Last Filed: 07/20/18 00:14> <Mik Parada - Last Filed: 07/20/18 04:49> - Plan for ED Patient: Chief Complaint: Suicidal Referrals: Kennedy Gipson MD [Primary Care Provider] - What to do if you have Problems For any increased pain, shortness of breath, bleeding, nausea or vomiting, chest pain, or any unexpected problems, contact your Primary Care Provider. Call [facility] ([phone]) or report to the closest Emergency Room. Call 911 if necessary. 07/28/18 0805 <Electronically signed by Chaz Shelton DO> Date Chaz Shelton DO 07/20/18 7219<Electronically signed by Mik Parada MD> Cosigner Signature (If Indicated): Date Mik Parada MD CC: Kennedy Gipson MD 12 LEAD ELECTROCARDIOGRAM Observed: 07/23/2018 Status: F Source: [place] 1:22 PM [facility] REPOSITORY [facility] Cardiovascular Services [address] [place] [address] 12 Lead EKG 07/20/18 0217 MR#: [id number] Acct: [id number] Name: FERNANDO ROUSSEAU Rep #: [id number] : 1995 23 From: Bayron Tubbs MD Attending Dr: Status: DEP ER Ordering Dr: Mik Parada MD Date: 07/20/18 Location: ED Sex: F C Admitted: Test Reason : Blood Pressure : / mmHG Vent. Rate : 075 BPM Atrial Rate : 075 BPM P-R Int : 148 ms QRS Dur : 092 ms QT Int : 388 ms P-R-T Axes : 066 082 056 degrees QTc Int : 433 ms Normal sinus rhythm Possible Left atrial enlargement Incomplete right bundle branch block Borderline ECG Confirmed by NIGEL CRUZ, BAYRON ([id number]), writer editor SRINATH MOORE ([id number]) on 07/23/2018 1:22:23 PM Referred By: TAL Confirmed By:BAYRON TUBBS MD 07/23/18 1322 Date Bayron Tubbs MD CC: MIK PARADA MD; Kennedy Gipson MD; Chaz Shelton DO Signed SPINE LUMBAR Observed: 07/23/2018 Status: F Source: [place] (ROUTINE) 9:23 AM [facility] REPOSITORY [facility] Imaging Services [address] [place] [address] Spine Lumbar (Routine) MR#: [id number] Acct: [id number] Name: FERNANDO ROUSSEAU Rep #: [id number] : 1995 F 23 From: Bryce De Jesus MD PCP: Kennedy Gipson MD Status: REG CLI Study: Spine Lumbar (Routine) Date of Exam: 07/23/18 Exam# [id number] Ordering Dr: Steve Chinchilla MD STUDY: MRI LUMBAR SPINE WITHOUT CONTRAST REASON FOR EXAM: Female, 23 years old. Low back pain and bilateral hip pain since age 11. TECHNIQUE: Standardized fat and water weighted pulse sequences were obtained in the sagittal and axial planes. COMPARISON: CT of the abdomen and pelvis 05/10/2017. FINDINGS: T11-T12: (Sagittal only). Normal endplates. Normal disc height, hydration and morphology. Normal central canal and bilateral intervertebral neural foramina. T12-L1: (Sagittal only). Normal endplates. Normal disc height, hydration and morphology. Normal central canal and bilateral intervertebral neural foramina. Normal lumbar lordosis. There is no substantial scoliosis. Normal conus medullaris that terminates at the lower T12 vertebral body level. L1-2: Normal endplates. Normal disc height, hydration and morphology. Normal bilateral facet joints. Normal central canal and bilateral lateral recesses. Normal bilateral intervertebral neural foramina. L2-3: Normal endplates. Normal disc height, hydration and morphology. Normal bilateral facet joints. Normal central canal and bilateral lateral recesses. Normal bilateral intervertebral neural foramina. L3-4: Normal endplates. Normal disc height, hydration and morphology. Normal bilateral facet joints. Normal central canal and bilateral lateral recesses. Normal bilateral intervertebral neural foramina. L4-5: Normal endplates. Normal disc height, hydration and morphology. Normal bilateral facet joints. Normal central canal and bilateral lateral recesses. Normal bilateral intervertebral neural foramina. L5-S1: Normal endplates. Normal disc height, hydration and morphology. Normal bilateral facet joints. Normal central canal and bilateral lateral recesses. Normal bilateral intervertebral neural foramina. Normal visualized sacral ala. Normal visualized paraspinous soft tissue structures. MRI/Spine Lumbar (Routine) IMPRESSION: Normal unenhanced MR examination of the lumbar spine. Electronically Signed: Bryce De Jesus MD at 14:08 EST , Service support , CC: Kennedy Gipson MD; Steve Chinchilla Sharepoint Architect: Signed HEMOGLOBIN A1C Collected: 07/21/2018 Status: F Source: [employer] 6:10 AM SYSTEM REPOSITORY TYPE CODE TESTS RESULT OUT OF RANGE REFERENCE UNITS LAB A1C2 4.0-5.7 % Normal Hemoglobin A1C 5.2 Result Comment: --HgbA1C levels may not be accurate in patients who have renal disease, received recent blood transfusions, are anemic, or who have dyshemoglobinemia. LAB EAG2 mg/dL Estimated Avg Glucose 103 Performed By: #### LIPD2, HA1C2 #### [facility] [address] [place] [address] PROTHROMBIN TIME Collected: 07/21/2018 Status: F Source: [employer] 6:09 AM SYSTEM REPOSITORY TYPE CODE TESTS RESULT OUT OF REFERENCE UNITS RANGE LAB PROTM 9.0-12.0 s Prothrombin Normal Time 10.2 LAB INR 0.90-1.10 s INR Normal 1.01 Result Comment: Recommended Anticoagulant Therapy: SEE BELOW ----- INR of 2.0 - 3.0 : - Prophylaxis of Venous Thrombosis (high-risk surgery) - Treatment of Venous Thrombosis - Treatment of Pulmonary Embolism (Includes tissue heart valves, Acute Myocardial Infarction to prevent systemic embolism, Valvular Heart Disease, and Atrial Fibrillation) ----- INR of 2.5 - 3.5 : - Mechanical Prosthetic Valves (high risk) - If oral anticoagulant therapy is used to prevent Myocardial Infarction Performed By: #### PT #### [facility] [address] [place] [id number] LIPID PANEL Collected: 07/21/2018 Status: F Source: [employer] 6:09 AM SYSTEM REPOSITORY TYPE CODE TESTS RESULT OUT OF REFERENCE UNITS RANGE LAB 3CHOL < 200 mg/dL Cholesterol Normal 151 LAB 3TRIG <150 mg/dL Triglyceride Normal 79 LAB HDLC 40-60 mg/dL HDL Normal Cholesterol 42 LAB LDL4 <100 mg/dL Low Density Normal Lipoprotein 93 LAB CHLHD NA Chol/HDL 4 Result Comment: Ref Range: < 3 Low Risk for CHD 3-6 Mod Risk for CHD > 6 High Risk for CHD Performed By: #### LIPD2, HA1C2 #### [address] [address] CBC W/DIFF, AUTOMATED Collected: 07/19/2018 Status: F Source: [place] 3:55 PM [facility] REPOSITORY TYPE CODE TESTS RESULT OUT OF RANGE REFERENCE UNITS LAB L100.1000 4.4-11.0 K/mm3 Normal WBC 6.8 LAB L100.1200 4.2-5.4 M/mm3 Normal RBC 5.06 LAB L100.1300 12.0-15.0 g/dl Normal HGB 14.7 LAB L100.1400 37-47 % Normal HCT 43.9 LAB L100.1500 81-99 fL Normal MCV 86.8 LAB L100.1600 27.0-32.0 pg Normal MCH 29.1 LAB L100.1700 32-36 g/gl Normal MCHC 33.5 LAB L100.1810 11.6-14.6 % Normal RDW CV 13.4 LAB L100.1820 35.1-43.9 fl Normal RDW SD 42.3 LAB L100.1900 150-450 K/mm3 Normal PLT 231 LAB L100.2000 6.2-12.0 fl Normal MPV 11.1 LAB L100.2100 47-70 % Normal NEUT% 51.7 LAB L100.2200 19-41 % Normal LY% 37.5 LAB L100.2300 0-10 % Normal MONO% 6.9 LAB L100.2400 0-5 % Normal EO% 2.5 LAB L100.2500 0-1 % High BASO% 1.3 LAB L100.2550 0.0-0.9 % Normal IM GRAN % 0.100 Result Comment: IG% - Immature Granulocytes (promyelocytes, myelocytes and metamyelocytes) > 1% indicates that a LEFT SHIFT is Present. LAB L100.2620 2.0-7.7 X10 3/uL Normal Absolute Neut 3.5 LAB L100.2720 0.83-4.51 X10 3/ul Normal Absolute Lymph 2.56 Performed By: #### L100.0100 #### [facility] [address] [place], [address] ALCOHOL, BLOOD Collected: 07/19/2018 Status: F Source: [place] (MEDICAL)-SERUM 3:55 PM [facility] REPOSITORY TYPE CODE TESTS RESULT OUT OF RANGE REFERENCE UNITS LAB L501.9100 mg/dL Normal SERUM < 3.0 ETOH Result Comment: The serum:whole blood ethanol ratio is approximately 1.14 and varies slightly with hematocrit. Medical Alcohol reference interval and critical value in non-tolerant individuals; 50 - 100 Impairment 100 Intoxication 100 - 250 Severe Poisoning 250 - 400 Deep/possible fatal coma Performed By: #### L501.9100 #### [facility] [address] [place], [address] COMPREHENSIVE METABOLIC Collected: 07/19/2018 Status: F Source: [place] PROFIL 3:55 PM [facility] REPOSITORY TYPE CODE TESTS RESULT OUT OF RANGE REFERENCE UNITS LAB L501.0100 74-106 mg/dL Normal GLU 90 Result Comment: Please note revised GLUCOSE reference range effective 2017. LAB L501.1000 7-18 mg/dL Normal BUN 12 LAB L501.1100 0.55-1.02 mg/dL Normal CREAT,SERUM 0.89 Result Comment: The validity of the calculated GFR AND GFRAA in patients over 70 years has not been determined. Clinical correlation is essential. LAB L501.1110 >60 mL/min Normal EST GFR 82 Result Comment: Non- GFR Calc LAB L501.1115 >60 mL/min Normal EST GFR - AA 100 Result Comment: GFR Calc LAB L501.1255 ml/min Normal Estimated CRCL 87.71 LAB L501.1300 10-20 RATIO Normal BUN/CRE 13.4 LAB L501.1500 6.4-8. g/dL Normal 2 T PROT 8.0 LAB L501.1800 3.2-5. g/dL Normal 0 ALB 4.2 LAB L501.1950 2.2-4. g/dL Normal 2 GLOB 3.8 LAB L501.2000 0.9-2. RATIO Normal 4 A/G 1.1 LAB L501.2200 8.5-10 mg/dL Normal .1 CA 8.8 LAB L501.4100 15-37 U/L Normal AST 16 LAB L501.4305 45-117 U/L Normal ALK P 97 LAB L501.4405 13-56 U/L Normal ALT 16 LAB L501.4600 0.20-1 mg/dL Normal .00 T BILI 0.60 LAB L501.5300 136-14 mmol/L Normal 5 NA 139 LAB L501.5600 3.5-5. mmol/L Low 1 K 3.4 LAB L501.5900 98-107 mmol/L Normal CL 107 LAB L501.6100 21.0-3 mmol/L Normal 2.0 CO2 26.0 LAB L501.6200 5-15 Normal GAP 6 Performed By: #### L500.4050 #### [facility] [address] [place], [address] ,SERUM,HCG QUALI. Collected: Status: F Source: [place] 07/19/2018 3:55 PM [facility] REPOSITORY TYPE CODE TESTS RESULT OUT OF REFERENCE UNITS RANGE LAB L700.6700 =>Qualitative mIU/mL Normal HCG Qual < 1 triggr LAB L700.7000 0-9 Nonpreg Negative Normal HCGSQUAL NEGATIVE Performed By: #### L700.6800 #### [facility] [address] [place], [address] URINE DRUG SCREEN Collected: 07/19/2018 Status: F Source: [place] (VISTA) 3:37 PM [facility] REPOSITORY TYPE CODE TESTS RESULT OUT OF RANGE REFERENCE UNITS LAB L505.0075 TO BE Normal CONFIRMED Result Comment: CONFIRMATORY TESTING FOR ALL POSITIVE URINE DRUG SCREEN RESULTS WILL ONLY BE SENT OUT UPON PHYSICIAN ORDER. VISTA Urine Drug Screen methods provide only preliminary analytical test results. A more specific alternate chemical method must be used in order to obtain a confirmed analytical result. Gas chromatography/mass spectrometery (GC/MS) is the preferred confirmatory method. Clinical consideration and professional judgement should be applied to any drug of abuse test result, particularly when preliminary positive results are used. URINE TCA TESTING MUST BE ORDERED SEPARATELY. USE TEST MNEMONIC: [facility] LAB L505.5005 VISTA UDS PH 5 Normal LAB L505.5015 <1000 ng/mL AMPHETAMINES Normal NEGATIVE LAB L505.5025 < 200 ng/mL BARBITIURATES Normal NEGATIVE LAB L505.5035 < 200 ng/mL BENZODIAZIPINE Normal NEGATIVE LAB L505.5045 < 300 ng/mL COCAINE Normal NEGATIVE LAB L505.5055 < 500 ng/mL ECSTACY Normal NEGATIVE LAB L505.5065 < 300 ng/mL METHADONE Normal NEGATIVE LAB L505.5075 < 300 ng/mL OPIATES Normal NEGATIVE LAB L505.5085 < 25 ng/mL PCP Normal NEGATIVE LAB L505.5095 < 50 ng/mL THC Normal NEGATIVE Performed By: #### L505.5000 #### [facility] [address] [place], [address] URINALYSIS, COMPLETE Collected: 07/19/2018 Status: F Source: [place] 3:37 PM [facility] REPOSITORY Order Comment: Order Date: 07/19/18 Has pt arrived? Y How was Urine Obtained? NEUROSURGERY PHYSICIAN TO SPECIFY TYPE CODE TESTS RESULT OUT OF RANGE REFERENCE UNITS LAB L400.3000 Yellow COLOR Normal Yellow LAB L400.3050 Clear Normal CLARITY Clear LAB L400.3200 Normal mg/dl Normal GLUCOSE, UR Normal LAB L400.3300 Negative mg/dL Normal BILIRUBIN URINE Negative LAB L400.3400 Negative mg/dl Normal KETONE UR Negative LAB L400.3465 1.002-1.030 Normal SP.GR. DIPSTX 1.015 LAB L400.3550 5.0 - 8.0 pH UR Normal 6.0 LAB L400.3600 Negative mg/dl PROT Normal DIPSTX Negative LAB L400.3700 Normal mg/dl Normal UROBILI Normal LAB L400.3750 Negative Normal NITRITE UR Negative LAB L400.3780 Negative /ul Normal OCCULT BLOOD-UR Negative LAB L400.3800 Negative /ul LEUK Normal ESTERASE Negative LAB L400.4050 0-5 /hpf WBC Normal 0-5 SEEN LAB L400.4100 0-5 /hpf Normal RBC-UA 0-5 SEEN LAB L400.4150 5-10 /hpf SQUAM Normal EPI 0-5 SEEN LAB L400.4300 None Seen /hpf 0 Normal BACTERIA SEEN LAB L400.4350 <or=2+ /hpf 1+ Normal MUCUS, URINE Performed By: #### L400.0001 #### [facility] [address] [place], [address] PROGRESS Observed: 07/11/2018 Status: COMPLETED Source: [place] 3:12 PM [facility] REPOSITORY HNO ID: [id number] Author: Antionette (Rai) Podlogar Service: (none) Author Type: Nurse Practitioner Type: Progress Notes Filed: 07/12/2018 10:02 AM Note Text: 07/11/2018 Patient presents with: Discussion: letter for therapy dog, also a f/up SUBJECTIVE: This is a 23 year old that is here today for Above Complaints. Has been on several medications for bipolar, depression, and anxiety- is currently off and going to counseling center monthly. Is going to get support animal to help her with anxiety. Needs letter for this so she can get one. Has never had support animal in the past, however she has had dogs as pets and found them to be comforting. Patient also needs refills on several medications. For chronic conditions. 1. Asthma: Needs refill for albuterol inhaler has been out for sometime. Has not had hospitalizations or ER visits in last year for this. Has not needed rescue inhaler. Uses Flovent twice a day. Denies fever, chills, cough, wheezing, SOB, dyspnea, Hemoptysis, or chest pain. 2. Has had some irregular cycles and has been out of her control. requesting testing. Has had a tubular in the past. Want to restart her pills 3. GERD: taking omeprazole daily. Works well for reflux. Denies breakthrough symptoms. Reports occasional nausea for which she uses phenergan for 4. IBS with constipation: takes miralax daily which helps with this. Denies abdominal pain, diarrhea, vomiting, melana, and hematochezia. Feeling nervous, anxious, or on edge 3 Nearly every day Not being able to stop or control worrying 3 Nearly every day Worrying too much about different things 3 Nearly every day Trouble relaxing 3 Nearly every day Being so restless that it's hard to sit still 3 Nearly every day Being easily annoyed or irritable 3 Nearly every day Feeling afraid as if something awful might happen 3 Nearly every day RUPERTO-7 Anxiety Score 21 If you checked off any problems, how difficult have these problems made it for you to do your work, take care of things at home, or get along with other people? Very difficult Little or no interest or pleasure in doing things 3 Nearly every day Feeling down, depressed, or hopeless 2 More than half the days Trouble falling or staying asleep, or sleeping too much 3 Nearly every day Feeling tired or having little energy 3 Nearly every day Poor appetite or overeating 3 Nearly every day Feeling bad about yourself- or that you are a failure or having let yourself or your family down 3 Nearly every day Trouble concentrating on things, such as reading the newpaper or watching television 3 Nearly every day Moving or speaking so slowly that other people could have noticed? Or the opposite- being so fidgety or restless that you have been moving around a lot more than usual 3 Nearly every day Thoughts that you would be better off or of hurting yourself in some way 1 Several days PHQ9P Score 23 If you checked off any problems, how difficult have these problems made it for you to do your work, take care of things at home, or get along with other people? Very difficult PAST MEDICAL HISTORY Diagnosis Date - Abnormal Pap smear of cervix - ADHD (attention deficit hyperactivity disorder) - Anemia - Anxiety [facility] - Asthma - Bipolar disorder ([facility]) - Chlamydia 2013 - Complication of anesthesia migraines after anesthesia - Convulsions ([facility]) - GERD (gastroesophageal reflux disease) - Migraines - Polysubstance abuse ([facility]) History. Last use of any illicit drug was September - depression - Preeclampsia - PTSD (post-traumatic stress disorder) - Reactive attachment disorder - Seizure (HCC) psychogenic non epileptic seizures - Tobacco use ALLERGIES Clindamycin; Dicyclomine; Flagyl [Metronidazole Hcl]; Keflex [Cephalexin]; Mobic [Meloxicam]; Penicillin; Procardia [Nifedipine]; Progesterone Aqueous; Sulfa (Sulfonamide Antibiotics); Terbutaline; Tessalon [Benzonatate] MEDICATIONS Current Outpatient Prescriptions: albuterol HFA (PROAIR HFA) 90 mcg/actuation inhaler Inhale 2 Puffs as instructed every 4 hours as needed. cyclobenzaprine (FLEXERIL) 10 mg tablet Take 1 tablet by mouth three times daily as needed. etodolac (LODINE) 300 mg capsule Take 1 capsule by mouth every 8 hours. fluticasone (FLOVENT) 110 mcg/actuation inhaler Inhale 2 Puffs as instructed twice daily. gabapentin (NEURONTIN) 100 mg capsule Take 100 mg by mouth twice daily. meclizine (ANTIVERT) 25 mg tab Take 1 tablet by mouth every 6 hours as needed (dizziness). nabumetone (RELAFEN) 750 mg tablet Take 750 mg by mouth twice daily. Norethin Chinmay-Eth Estrad-FE (LOESTRIN FE 1.5/30) 1.5 mg-30 mcg (21)/75 mg (7) tablet Take 1 tablet by mouth once daily. Omeprazole 40 mg capsule Take 1 capsule by mouth once daily. polyethylene glycol 3350 (MIRALAX, GLYCOLAX) 17 gram/dose powder Take 17 g by mouth once daily. This is one (1) capful in 8oz of liquid each day. vit-iron fumarate-fa () 28 mg iron- 800 mcg tab Take 1 tablet by mouth once daily. promethazine (PHENERGAN) 25 mg tablet Take 1 tablet by mouth every 6 hours as needed. topiramate (TOPAMAX) 50 mg tablet Take 1 tablet by mouth twice daily. predniSONE (DELTASONE) 20 mg tablet Take 2 tablets by mouth once daily. traMADol (ULTRAM) 50 mg tablet No current [...] and negative other than HPI. OBJECTIVE: BP 108/72 (BP Site: Left Arm, BP Position: Sitting, BP Cuff Size: Regular Adult) Pulse 68 Resp 18 Wt 64.4 kg (142 lb 1.3 oz) BMI 24.39 kg/m? . Vital signs reviewed by this provider. PHYSICAL EXAMINATION: General appearance: Well appearing, alert, in no acute distress, well-hydrated, well nourished. Skin: Skin color, texture, turgor normal, no suspicious rashes or lesions Head: Normocephalic, no masses, lesions, tenderness or abnormalities Lungs: lungs clear to auscultation. No wheezing, rhonchi, rales Heart: RRR without murmur, gallop, or rubs. No ectopy Abdomen: Normal abdominal exam, Abdomen soft, non-tender. Bowel sounds normal. No masses, organomegaly PSYCH: Posture and motor behavior: normal posture and motor behavior Dress, grooming, personal hygiene: normal dress and grooming Facial expression: smiling and good eye contact Speech: normal speech Mood: cheerful Coherency and relevance of thought: normal thought processes Memory: normal memory ASSESSMENT/PLAN: 1. History of depression - ICD9: V11.8, ICD10: Z86.59 (primary diagnosis) - stable - will provide letter for emotional support dog - has tried several medications and sees counseling - continue with counseling center 2. Bipolar 1 disorder (HCC) - ICD9: 296.7, ICD10: F31.9 -stable -plan as in #1 3. PTSD (post-traumatic stress disorder) - ICD9: 309.81, ICD10: F43.10 -plan as in #1 4. Anxiety - ICD9: 300.00, ICD10: F41.9 -plan as in #1 5. Menorrhagia with irregular cycle - ICD9: 626.2, ICD10: N92.1 - negative urine - restart control - follow-up yearly - NORETHINDRONE 1.5 MG-ETHINYL ESTRADIOL 30 MCG(21)/IRON 75 MG(7) TABLET 6. Functional dyspepsia - ICD9: 536.8, ICD10: K30 - Discussed lifestyle modifications including losing weight, limiting caffeine, no meals three hours before sleep and head of bed elevation - Follow up in 6months - OMEPRAZOLE 40 MG CAPSULE,DELAYED RELEASE - PROMETHAZINE 25 MG TABLET 7. Gastroesophageal reflux disease, esophagitis presence not specified - ICD9: 530.81, ICD10: K21.9 - Discussed lifestyle modifications including losing weight, limiting caffeine, no meals three hours before sleep and head of bed elevation - Follow up in 6months - OMEPRAZOLE 40 MG CAPSULE,DELAYED RELEASE 8. Irritable bowel syndrome with constipation - ICD9: 564.1, ICD10: K58.1 - stable - continue with miralax - POLYETHYLENE GLYCOL 3350 17 GRAM/DOSE ORAL POWDER 9. Missed period - ICD9: 626.4, ICD10: N92.6 negative in office today - HCG QUAL UR B/O 10. Mild intermittent asthma, uncomplicated - ICD9: 493.90, ICD10: J45.20 Mild intermittent Asthma stable - Avoidance of triggers recommended - Follow up in 6 months, sooner if needed - ALBUTEROL SULFATE HFA 90 MCG/ACTUATION AEROSOL INHALER Antionette Mckinney APRN.CNP Prescription instructions reviewed with patient as applicable. Patient advised if symptoms do not improve or if symptoms worsen sooner, to contact their primary care physician. Potential red flag symptoms discussed with the patient. Reviewed appropriate action plan to take if red flag symptoms occur. Patient agreeable to treatment plan. CNOV Observed: 07/11/2018 Status: COMPLETED Source: [place] 2:40 PM [facility] REPOSITORY [facility] FERNANDO ROUSSEAU ([id number]) 1995 F Date Time Provider Department 07/11/18 2:40 PM ANTIONETTE MCKINNEY (RAI) [facility] During your visit today, we recorded the following information about you: Pulse Respiration Blood pressure Weight 68/minute 18/minute 108/72 64.4 kg Antionette Mckinney APRN.CNP 07/12/2018 10:02 AM Signed 07/11/2018 Patient presents with: Discussion: letter for therapy dog, also a f/up SUBJECTIVE: This is a 23 year old that is here today for Above Complaints. Has been on several medications for bipolar, depression, and anxiety- is currently off and going to counseling center monthly. Is going to get support animal to help her with anxiety. Needs letter for this so she can get one. Has never had support animal in the past, however she has had dogs as pets and found them to be comforting. Patient also needs refills on several medications. For chronic conditions. 1. Asthma: Needs refill for albuterol inhaler has been out for sometime. Has not had hospitalizations or ER visits in last year for this. Has not needed rescue inhaler. Uses Flovent twice a day. Denies fever, chills, cough, wheezing, SOB, dyspnea, Hemoptysis, or chest pain. 2. Has had some irregular cycles and has been out of her control. requesting testing. Has had a tubular in the past. Want to restart her pills 3. GERD: taking omeprazole daily. Works well for reflux. Denies breakthrough symptoms. Reports occasional nausea for which she uses phenergan for 4. IBS with constipation: takes miralax daily which helps with this. Denies abdominal pain, diarrhea, vomiting, melana, and hematochezia. Feeling nervous, anxious, or on edge 3 Nearly every day Not being able to stop or control worrying 3 Nearly every day Worrying too much about different things 3 Nearly every day Trouble relaxing 3 Nearly every day Being so restless that it's hard to sit still 3 Nearly every day Being easily annoyed or irritable 3 Nearly every day Feeling afraid as if something awful might happen 3 Nearly every day RUPERTO-7 Anxiety Score 21 If you checked off any problems, how difficult have these problems made it for you to do your work, take care of things at home, or get along with other people? Very difficult Little or no interest or pleasure in doing things 3 Nearly every day Feeling down, depressed, or hopeless 2 More than half the days Trouble falling or staying asleep, or sleeping too much 3 Nearly every day Feeling tired or having little energy 3 Nearly every day Poor appetite or overeating 3 Nearly every day Feeling bad about yourself- or that you are a failure or having let yourself or your family down 3 Nearly every day Trouble concentrating on things, such as reading the newpaper or watching television 3 Nearly every day Moving or speaking so slowly that other people could have noticed? Or the opposite- being so fidgety or restless that you have been moving around a lot more than usual 3 Nearly every day Thoughts that you would be better off or of hurting yourself in some way 1 Several days PHQ9P Score 23 If you checked off any problems, how difficult have these problems made it for you to do your work, take care of things at home, or get along with other people? Very difficult PAST MEDICAL HISTORY Diagnosis Date - Abnormal Pap smear of cervix - ADHD (attention deficit hyperactivity disorder) - Anemia - Anxiety Melchor Hand [facility] - Asthma - Bipolar disorder (HCC) - Chlamydia 2014 - Complication of anesthesia migraines after anesthesia - Convulsions ([facility]) - GERD (gastroesophageal reflux disease) - Migraines - Polysubstance abuse ([facility]) History. Last use of any illicit drug was September - depression - Preeclampsia - PTSD (post-traumatic stress disorder) - Reactive attachment disorder - Seizure ([facility]) psychogenic non epileptic seizures - Tobacco use ALLERGIES Clindamycin; Dicyclomine; Flagyl [Metronidazole Hcl]; Keflex [Cephalexin]; Mobic [Meloxicam]; Penicillin; Procardia [Nifedipine]; Progesterone Aqueous; Sulfa (Sulfonamide Antibiotics); Terbutaline; Tessalon [Benzonatate] MEDICATIONS Current Outpatient Prescriptions: albuterol HFA (PROAIR HFA) 90 mcg/actuation inhaler Inhale 2 Puffs as instructed every 4 hours as needed. cyclobenzaprine (FLEXERIL) 10 mg tablet Take 1 tablet by mouth three times daily as needed. etodolac (LODINE) 300 mg capsule Take 1 capsule by mouth every 8 hours. fluticasone (FLOVENT) 110 mcg/actuation inhaler Inhale 2 Puffs as instructed twice daily. gabapentin (NEURONTIN) 100 mg capsule Take 100 mg by mouth twice daily. meclizine (ANTIVERT) 25 mg tab Take 1 tablet by mouth every 6 hours as needed (dizziness). nabumetone (RELAFEN) 750 mg tablet Take 750 mg by mouth twice daily. Norethin Chinmay-Eth Estrad-FE (LOESTRIN FE 1.5/30) 1.5 mg-30 mcg (21)/75 mg (7) tablet Take 1 tablet by mouth once daily. Omeprazole 40 mg capsule Take 1 capsule by mouth once daily. polyethylene glycol 3350 (MIRALAX, GLYCOLAX) 17 gram/dose powder Take 17 g by mouth once daily. This is one (1) capful in 8oz of liquid each day. vit-iron fumarate-fa () 28 mg iron- 800 mcg tab Take 1 tablet by mouth once daily. promethazine (PHENERGAN) 25 mg tablet Take 1 tablet by mouth every 6 hours as needed. topiramate (TOPAMAX) 50 mg tablet Take 1 tablet by mouth twice daily. predniSONE (DELTASONE) 20 mg tablet Take 2 tablets by mouth once daily. traMADol (ULTRAM) 50 mg tablet No current [...] and negative other than HPI. OBJECTIVE: BP 108/72 (BP Site: Left Arm, BP Position: Sitting, BP Cuff Size: Regular Adult) Pulse 68 Resp 18 Wt 64.4 kg (142 lb 1.3 oz) BMI 24.39 kg/m? . Vital signs reviewed by this provider. PHYSICAL EXAMINATION: General appearance: Well appearing, alert, in no acute distress, well-hydrated, well nourished. Skin: Skin color, texture, turgor normal, no suspicious rashes or lesions Head: Normocephalic, no masses, lesions, tenderness or abnormalities Lungs: lungs clear to auscultation. No wheezing, rhonchi, rales Heart: RRR without murmur, gallop, or rubs. No ectopy Abdomen: Normal abdominal exam, Abdomen soft, non-tender. Bowel sounds normal. No masses, organomegaly PSYCH: Posture and motor behavior: normal posture and motor behavior Dress, grooming, personal hygiene: normal dress and grooming Facial expression: smiling and good eye contact Speech: normal speech Mood: cheerful Coherency and relevance of thought: normal thought processes Memory: normal memory ASSESSMENT/PLAN: 1. History of depression - ICD9: V11.8, ICD10: Z86.59 (primary diagnosis) - stable - will provide letter for emotional support dog - has tried several medications and sees counseling - continue with counseling center 2. Bipolar 1 disorder (HCC) - ICD9: 296.7, ICD10: F31.9 -stable -plan as in #1 3. PTSD (post-traumatic stress disorder) - ICD9: 309.81, ICD10: F43.10 -plan as in #1 4. Anxiety - ICD9: 300.00, ICD10: F41.9 -plan as in #1 5. Menorrhagia with irregular cycle - ICD9: 626.2, ICD10: N92.1 - negative urine - restart control - follow-up yearly - NORETHINDRONE 1.5 MG-ETHINYL ESTRADIOL 30 MCG(21)/IRON 75 MG(7) TABLET 6. Functional dyspepsia - ICD9: 536.8, ICD10: K30 - Discussed lifestyle modifications including losing weight, limiting caffeine, no meals three hours before sleep and head of bed elevation - Follow up in 6months - OMEPRAZOLE 40 MG CAPSULE,DELAYED RELEASE - PROMETHAZINE 25 MG TABLET 7. Gastroesophageal reflux disease, esophagitis presence not specified - ICD9: 530.81, ICD10: K21.9 - Discussed lifestyle modifications including losing weight, limiting caffeine, no meals three hours before sleep and head of bed elevation - Follow up in 6months - OMEPRAZOLE 40 MG CAPSULE,DELAYED RELEASE 8. Irritable bowel syndrome with constipation - ICD9: 564.1, ICD10: K58.1 - stable - continue with miralax - POLYETHYLENE GLYCOL 3350 17 GRAM/DOSE ORAL POWDER 9. Missed period - ICD9: 626.4, ICD10: N92.6 negative in office today - HCG QUAL UR B/O 10. Mild intermittent asthma, uncomplicated - ICD9: 493.90, ICD10: J45.20 Mild intermittent Asthma stable - Avoidance of triggers recommended - Follow up in 6 months, sooner if needed - ALBUTEROL SULFATE HFA 90 MCG/ACTUATION AEROSOL INHALER Antionette Mckinney, CARBURIZING FURNACE OPERATOR.FROZEN PIE MAKER Prescription instructions reviewed with patient as applicable. Patient advised if symptoms do not improve or if symptoms worsen sooner, to contact their primary care physician. Potential red flag symptoms discussed with the patient. Reviewed appropriate action plan to take if red flag symptoms occur. Patient agreeable to treatment plan. Referring Provider: SELF [[id number]] Allergies As of Date: 07/11/2018 Noted Allergy Reaction CLINDAMYCIN 10/22/2015 4 - [...] (BENZONATATE) 01/01/2018 2 - Rash Date Reviewed: 07/11/2018 Reviewed by: Elizabeth Harrell (Radha) RADHA Kyle - Fully Assessed Reason for Visit: Discussion [813] Cmt: letter for therapy dog, also a f/up Primary Visit Diagnosis:History of depression [Z86.59] Other Visit Diagnoses:Bipolar 1 disorder (HCC) [F31.9] PTSD (post-traumatic stress disorder) [F43.10] Anxiety [F41.9] Menorrhagia with irregular cycle [N92.1] Functional dyspepsia [K30] Gastroesophageal reflux disease, esophagitis presence not specified [K21.9] Irritable bowel syndrome with constipation [K58.1] Missed period [N92.6] Mild intermittent asthma, uncomplicated [J45.20] Order(s):gabapentin (NEURONTIN) 100 mg capsuleTake 1 capsule by mouth three times daily for 31 days.Disp: Rfl: albuterol HFA (PROAIR HFA) 90 mcg/actuation inhalerInhale 2 Puffs as instructed every 4 hours as needed.Disp: 8.5 gRfl: 1 Norethin Chinmay-Eth Estrad-FE (LOESTRIN FE 1.530) 1.5 mg-30 mcg (21)/75 mg (7) tabletTake 1 tablet by mouth once daily.Disp: 3 PackageRfl: 2 Omeprazole 40 mg capsuleTake 1 capsule by mouth once daily.Disp: 30 capsuleRfl: 2 polyethylene glycol 3350 (MIRALAX, GLYCOLAX) 17 gram/dose powderTake 17 g by mouth once daily. This is one (1) capful in 8oz of liquid each day.Disp: 1 BottleRfl: 11 vit-iron fumarate-fa () 28 mg iron- 800 mcg tabTake 1 tablet by mouth once daily.Disp: 123 tabletRfl: 1 promethazine (PHENERGAN) 25 mg tabletTake 1 tablet by mouth every 6 hours as needed.Disp: 28 tabletRfl: 0 HCG QUAL UR B/O [[id number]] Order #: [id number] Prescriptions as of 07/11/2018 Sig: ALBUTEROL SULFATE HFA 90 MCG/* Inhale 2 Puffs as instructed * CYCLOBENZAPRINE 10 MG TABLET Take 1 tablet by mouth three * FLUTICASONE 110 MCG/ACTUATION* Inhale 2 Puffs as instructed * GABAPENTIN 100 MG CAPSULE Take 1 capsule by mouth three* MECLIZINE 25 MG TABLET Take 1 tablet by mouth every * NABUMETONE 750 MG TABLET Take 750 mg by mouth twice da* NORETHINDRONE 1.5 MG-ETHINYL * Take 1 tablet by mouth once d* OMEPRAZOLE 40 MG CAPSULE,KAREY* Take 1 capsule by mouth once * POLYETHYLENE GLYCOL 3350 17 G* Take 17 g by mouth once daily* VIT NO.95-FERROUS FU* Take 1 tablet by mouth once d* PROMETHAZINE 25 MG TABLET Take 1 tablet by mouth every * TOPIRAMATE 50 MG TABLET Take 1 tablet by mouth twice * PREDNISONE 20 MG TABLET Take 2 tablets by mouth once * TRAMADOL 50 MG TABLET Problem List As Of Date 07/11/2018 Noted Resolved Seizures (HCC) [R56.9] INVALID FOR*12/27/2016 [...] ordered this encounter Disp Refills Start End GABAPENTIN 100 MG CAPSULE 07/11/2018 08/11/2018 Class: Med Update Route: ORAL Sig: Take 1 capsule by mouth three times daily for 31 days. ALBUTEROL SULFATE HFA 90 MCG/ACTUATI* 8.5 g 1 07/11/2018 Route: INHALATION Sig: Inhale 2 Puffs as instructed every 4 hours as needed. NORETHINDRONE 1.5 MG-ETHINYL ESTRADI* 3 Pa* 2 07/11/2018 Route: ORAL Sig: Take 1 tablet by mouth once daily. OMEPRAZOLE 40 MG CAPSULE,DELAYED REL* 30 c* 2 07/11/2018 Route: ORAL Sig: Take 1 capsule by mouth once daily. POLYETHYLENE GLYCOL 3350 17 GRAM/DOS* 1 Ian* 11 07/11/2018 Route: ORAL Sig: Take 17 g by mouth once daily. This is one (1) capful in 8oz of liquid each day. VIT NO.95-FERROUS FUMARATE * 123 * 1 07/11/2018 Route: ORAL Sig: Take 1 tablet by mouth once daily. PROMETHAZINE 25 MG TABLET 28 t* 0 07/11/2018 Route: ORAL Sig: Take 1 tablet by mouth every 6 hours as needed. Medications Discontinued During This Encounter gabapentin (NEURONTIN) 100 mg capsule 07/11/2018 Class: Historical Med Route: ORAL Sig: Take 100 mg by mouth twice daily. Disc: Reason for discontinue is not on file. albuterol HFA (PROAIR HFA) 90 mcg/ac* 8.5 g 1 04/25/2018 07/11/2018 Route: INHALATION Sig: Inhale 2 Puffs as instructed every 4 hours as needed. Disc: Reason for discontinue is not on file. etodolac (LODINE) 300 mg capsule 30 c* 0 04/09/2018 07/11/2018 Route: ORAL Sig: Take 1 capsule by mouth every 8 hours. Disc: Course of therapy completed Norethin Chinmay-Eth Estrad-FE (LOESTRIN* 3 Pa* 2 04/05/2018 07/11/2018 Route: ORAL Sig: Take 1 tablet by mouth once daily. Disc: Reason for discontinue is not on file. Omeprazole 40 mg capsule 30 c* 2 05/15/2018 07/11/2018 Route: ORAL Sig: Take 1 capsule by mouth once daily. Disc: Reason for discontinue is not on file. polyethylene glycol 3350 (MIRALAX, G* 1 Ian* 11 05/22/2018 07/11/2018 Route: ORAL Sig: Take 17 g by mouth once daily. This is one (1) capful in 8oz of liquid each day. Disc: Reason for discontinue is not on file. vit-iron fumarate-fa (PRENA* 123 * 1 04/25/2018 07/11/2018 Route: ORAL Sig: Take 1 tablet by mouth once daily. Disc: Reason for discontinue is not on file. promethazine (PHENERGAN) 25 mg tablet 28 t* 0 05/08/2018 07/11/2018 Route: ORAL Sig: Take 1 tablet by mouth every 6 hours as needed. Disc: Reason for discontinue is not on file. Follow-up and Disposition History Recorded Questionnaire: RUPERTO-7 [...] or get along with other people? -> Very difficult Questionnaire: PHQ9P Little or no interest or pleasure in doing things -> 3 Nearly every day Feeling down, depressed, or hopeless -> 2 More than half the days Trouble falling or staying asleep, or sleeping too much - > 3 Nearly every day Feeling tired or having little energy -> 3 Nearly every day Poor appetite or overeating -> 3 Nearly every day Feeling bad about yourself- or that you are a failure or having let yourself or your family down -> 3 Nearly every day Trouble concentrating on things, such as reading the newpaper or watching television -> 3 Nearly every day Moving or speaking so slowly that other people could have noticed? Or the opposite- being so fidgety or restless that you have been moving around a lot more than usual -> 3 Nearly every day Thoughts that you would be better off or of hurting yourself in some way -> 1 S- e- v- e- r- a- l d- a- ys PHQ9P Score -> 23 If you checked off any problems, how difficult have these problems made it for you to do your work, take care of things at home, or get along with other people? -> Very difficult Letter Text [place] [facility] [address] [place], [place] [address] Fernando Rousseau [address] [facility] [address] Clinic #: [id number] 07/11/2018 To Whom It May Concern: Fernando Rousseau is my patient and has been under the care of Family Medicine Department at the [facility] since 2008. I am familiar with his/her history and with the functional limitations imposed by his/her emotional/mental health-related issue. Due to this emotional disability, Fernando Rousseau has certain limitations coping with what would otherwise be considered normal, but significant day to day situations. To help alleviate these challenges and to enhance his/her day to day functionality, I have prescribed Fernando Rousseau to obtain an emotional support animal. The presence of this animal is necessary for the emotional/mental health of Fernando Rousseau because its presence will mitigate the symptoms he/she is currently experiencing. Sincerely, Antionette Mckinney APRN.CNP Encounter Status:Closed by ANTIONETTE MCKINNEY CNP on 07/12/18 PROGRESS Observed: 06/27/2018 Status: COMPLETED Source: [place] 9:[address] [facility] [place] REPOSITORY HNO ID: [id number] Author: Antionette Archuleta) Podlogar Service: (none) Author [...] disorder) - Anemia - Anxiety Melchor Hand [facility] - Asthma - Bipolar disorder ([facility]) - Chlamydia 2013 - Complication of anesthesia migraines after anesthesia - Convulsions ([facility]) - GERD (gastroesophageal reflux disease) - Migraines - Polysubstance abuse ([facility]) History. 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 Patient advised if symptoms do not improve or if symptoms worsen sooner, to contact their primary care physician. Potential red flag symptoms discussed with the patient. Reviewed appropriate action plan to take if red flag symptoms occur. Patient agreeable to treatment plan. CNOV Observed: 06/27/2018 Status: COMPLETED Source: [place] 9:40 AM [facility] REPOSITORY Office Visit (FAMPWS) FERNANDO ROUSSEAU ([id number]) 1995 F Date Time Provider Department 06/27/18 9:40 AM ANTION[facility] MCKINNEY [facility] During your visit today, we recorded the following information about you: Pulse Respiration Blood pressure Weight 64/minute 18/minute 94/60 65.8 kg Antionette Mckinney APRN.CNP 06/27/2018 11:32 AM Signed 06/27/2018 Patient presents [...] disorder) - Anemia - Anxiety Melchor Hand [facility] - Asthma - Bipolar disorder (HCC) - Chlamydia 2013 - Complication of anesthesia migraines after anesthesia - Convulsions (HCC) - GERD (gastroesophageal reflux disease) - Migraines - Polysubstance abuse ([facility]) History. Last use of any illicit drug was September - depression - Preeclampsia - PTSD (post-traumatic stress disorder) - Reactive attachment disorder - Seizure ([facility]) psychogenic non epileptic seizures - Tobacco use [...] to ER with red flag symptoms Antionette Andradelogleilani, CARBURIZING FURNACE OPERATOR.FROZEN PIE MAKER Prescription instructions reviewed with patient as applicable. Patient advised if symptoms do not improve or if symptoms worsen sooner, to contact their primary care physician. Potential red flag symptoms discussed with the patient. Reviewed appropriate action plan to take if red flag symptoms occur. Patient agreeable to treatment plan. Antionette Andradelogleilani, JONATHAN 06/27/2018 10:[address] [facility] [...] Date Reviewed: 06/27/2018 Reviewed by: Elizabeth Harrell (Radha) RADHA Kyle - Fully Assessed Reason for [...] Letter Text Department of Family Medicine [address] [address] 06/27/2018 Fernando Rousseau CCF# [id number] [facility] [address] [facility] [address] TO WHOM IT MAY CONCERN: This is to certify that Ms. Fernando Rousseau has been under my care for illness and was unable to work today, June 27, 2018 Sincerely yours, Antionette Mckinney APRN.CNP Encounter Status:Closed by ANTIONETTE MCKINNEY CNP on 06/27/18 OPERATIVE REPORT Observed: 06/25/2018 Status: F Source: [place] 10:17 AM [facility] REPOSITORY [facility] Medical Records Department [address] [place] [address] Operative Report 06/25/18 1015 MR#: [id number] Acct: [id number] Name: FERNANDO ROUSSEAU Rep #: [id number] : 1995 23 From: Steve Chinchilla MD PCP: Kennedy Gipson MD Status: REG SDC Y Location: [place] [address] Problem List (1) Sacroiliitis, not elsewhere classified [...] GUIDED NEEDLE Observed: 06/25/2018 Status: F Source: [place] 3:23 AM [facility] REPOSITORY [facility] Imaging Services [address] [facility] [place] [address] Fluoro Guided Needle Placement MR#: [id number] Acct: [id number] Name: FERNANDO ROUSSEAU Rep #: [id number] : 1995 F 23 From: Serge Wood DO PCP: Kennedy Gipson MD Status: [facility] Study: Fluoro Guided Needle Placement Date of Exam: 06/25/18 Exam# [id number] Ordering Dr: Steve Chinchilla MD STUDY: X-RAY [...] Serge Wood DO at 16:30 EST Tel [phone], Service support , CC: Kennedy Gipson MD; Steve Chinchilla Sharepoint Architect: Signed PROGRESS Observed: 05/22/2018 Status: COMPLETED Source: [place] 2:[address] [facility] REPOSITORY HNO ID: [id number] Author: Nelly Archuleta) Shavon Service: (none) Author [...] hyperactivity disorder) - Anemia - Anxiety Melchor Hnad [facility] - Asthma - Bipolar disorder (HCC) - Chlamydia 2013 - Complication of anesthesia migraines after anesthesia - Convulsions ([facility]) - GERD (gastroesophageal reflux disease) - Migraines - Polysubstance abuse ([facility]) History. Last use of any illicit drug was September - depression - Preeclampsia - PTSD (post-traumatic stress disorder) - Reactive attachment disorder - Seizure ([facility]) psychogenic non epileptic seizures - Tobacco use PAST SURGICAL HISTORY Procedure Laterality Date - COLONOSCOP W/ OR W/O [facility] SPEC 06/12/2017 Colonoscopy [facility] - normal - Bx negative - EGD [...] - Seizures Father - Heart Father 39 NM - other (Coagulopathy) Paternal Aunt - Seizures [...] Discussed expected course of illness Nelly Sands APRN.RAI [place] Observed: 05/22/2018 Status: COMPLETED Source: [place] 2:30 PM [facility] REPOSITORY Office Visit (WSTR) FERNANDO ROUSSEAU ([id number]) 1995 F Date Time Provider Department 05/22/18 2:30 PM NELLY SANDS (RAI) [facility] During your visit today, we recorded [...] disorder) - Anemia - Anxiety Melchor Hand [facility] - Asthma - Bipolar disorder (HCC) - Chlamydia 2013 - Complication of anesthesia migraines after anesthesia - Convulsions (HCC) - GERD (gastroesophageal reflux disease) - Migraines - Polysubstance abuse ([facility]) History. Last use of any illicit drug was September - depression - Preeclampsia - PTSD (post-traumatic stress disorder) - Reactive attachment disorder - Seizure (HCC) psychogenic non epileptic seizures - Tobacco use PAST SURGICAL HISTORY Procedure Laterality Date - COLONOSCOP W/ OR W/O [facility] SPEC 06/12/2017 Colonoscopy [facility] - normal - Bx negative - EGD [...] - Seizures Father - Heart Father 39 NM - other (Coagulopathy) Paternal Aunt - Seizures [...] Rash Date Reviewed: 05/22/2018 Reviewed by: Nelly ([facility]) Shavon - Fully Assessed Reason for Visit: [...] Discussed expected course of illness Nelly Sands APRN.FROZEN PIE MAKER ACUTE BRONCHITIS: You have acute bronchitis. This [...] is not on file. Encounter Status:Closed by NELLY SANDS on 05/22/18 HALLIE Observed: 05/15/2018 Status: COMPLETED Source: [place] 8:20 AM [facility] REPOSITORY [facility]ER[facility]OUSSEAU ([id number]) 1995 F Date Time Provider Department 05/15/18 8:20 AM CHIQUITA HARP (SLAVA) [facility] During your visit today, we recorded the following information about you: Pulse Blood pressure Weight Height 106/minute 113/71 64.4 kg 1.626 m Chiquita Harp RN CARBURIZING FURNACE OPERATOR.FROZEN PIE MAKER 05/15/2018 9:11 AM Signed Fernando Rousseau a [...] Cochran for upper endoscopy and colonoscopy, at [facility], on 06/12/17. The procedure report has been [...] disorder) - Anemia - Anxiety Melchor Hand [facility] - Asthma - Bipolar disorder (HCC) - Chlamydia 2013 - Complication of anesthesia migraines after anesthesia - Convulsions (HCC) - GERD (gastroesophageal reflux disease) - Migraines - Polysubstance abuse ([facility]) History. Last use of any illicit drug was September - depression - Preeclampsia - PTSD (post-traumatic stress disorder) - Reactive attachment disorder - Seizure (HCC) psychogenic non epileptic seizures - Tobacco use PAST SURGICAL HISTORY Procedure Laterality Date - COLONOSCOP W/ OR W/O [facility] SPEC 06/12/2017 Colonoscopy [facility] - normal - Bx negative - EGD [...] - Seizures Father - Heart Father 39 NM - other (Coagulopathy) Paternal Aunt - Seizures [...] day. Begin Benefiber. Send an update via [employer] in 2 weeks. She agrees with this plan. I have personally interviewed and examined this patient. I have reviewed the information that the MA entered for this encounter. I spent 25 minutes in the visit, with greater than 50% of the total [id number] time of the visit in counseling and coordination of care. Chiquita Harp RN CARBURIZING FURNACE OPERATOR.FROZEN PIE MAKER Chiquita Harp RN CARBURIZING FURNACE OPERATOR.FROZEN PIE MAKER 05/15/2018 8:49 AM Addendum Resume omeprazole 40mg [...] dextrin (BENEFIBER HEALTH[employer]APE) 5 gram/7.4 gram powdTake as instructed in the office.Disp: 500 gRfl: [...] 05/15/18 PROGRESS Observed: 05/14/2018 Status: COMPLETED Source: [place] 12:43 PM [facility] REPOSITORY [facility] ID: [id number] Author: Chiquita (Slava) Katiuska Service: (none) Author [...] Cochran for upper endoscopy and colonoscopy, at [facility], on 06/12/17. The procedure report has been [...] disorder) - Anemia - Anxiety Melchor Hand [facility] - Asthma - Bipolar disorder (HCC) - Chlamydia 2013 - Complication of anesthesia migraines after anesthesia - Convulsions ([facility]) - GERD (gastroesophageal reflux disease) - Migraines - Polysubstance abuse ([facility]) History. Last use of any illicit drug was September - depression - Preeclampsia - PTSD (post-traumatic stress disorder) - Reactive attachment disorder - Seizure (HCC) psychogenic non epileptic seizures - Tobacco use PAST SURGICAL HISTORY Procedure Laterality Date [facility] - normal - Bx negative - EGD [...] - Seizures Father - Heart Father 39 NM - other (Coagulopathy) Paternal Aunt - Seizures [...] day. Begin Benefiber. Send an update via [employer] in 2 weeks. She agrees with this plan. I have personally interviewed and examined this patient. I have reviewed the information that the MA entered for this encounter. I spent 25 minutes in the visit, with greater than 50% of the total [id number] time of the visit in counseling and coordination of care. Chiquita Harp RN CARBURIZING FURNACE OPERATOR.FROZEN PIE MAKER 12 LEAD ELECTROCARDIOGRAM Observed: 05/10/2018 Status: F Source: [place] 10:34 AM [facility] REPOSITORY [facility] [place] [address] 12 Lead EKG 05/07/18 1157 MR#: [id number] Acct: [id number] Name: FERNANDO ROUSSEAU Rep #: [id number] : 1995 22 From: Bayron Tubbs MD [...] Borderline ECG Confirmed by NIGEL CRUZ, BAYRON ([id number]), writer editor SRINATH MOORE ([id number]) on 05/10/2018 10:34:04 AM Referred By: Francine Carbajal Confirmed By:BAYRON TUBBS MD 05/10/18 1034 Date Bayron Tubbs MD CC: Kennedy Gipson MD; Lee Cox MD Signed 12 LEAD ELECTROCARDIOGRAM Observed: 05/10/2018 Status: F Source: [place] 9:57 AM [facility] REPOSITORY [facility] Cardiovascular Services [address] [place] [address] 12 Lead EKG 05/08/18 0933 MR#: [id number] Acct: [id number] Name: FERNANDO ROUSSEAU Rep #: [id number] : 1995 22 From: Km Rodriguez MD [...] Borderline ECG Confirmed by KM RODRIGUEZ MD ([id number]), writer editor SRINATH MOORE ([id number]) on 05/10/2018 9:56:35 AM Referred By: KAHLIL Confirmed By:KM RODRIGUEZ MD 05/10/18 0956 Date Km Rodriguez MD CC: MD Tamera Sierra; Kennedy Gipson MD Signed EMERGENCY DEPARTMENT Observed: 05/08/2018 Status: F Source: [place] SUMMARY 5:16 PM [facility] REPOSITORY [facility] Medical Records Department [address] [place] [address] Emergency Department Summary 05/08/18 0921 MR#: [id number] Acct: [id number] Name: FERNANDO ROUSSEAU Rep #: [id number] : 1995 22 From: Reggie Sierra MD [...] department, she indicates when seen in the [place] emergency department really nothing was done for her she was dissatisfied with the care that was provided to her, so then she went to the [facility] emergency department where she had a [...] it appears that she when seen at [facility] had an extensive workup including a [...] etiology unclear This note was generated with Captora dictation software. It may contain incorrect words, [...] problems, contact your Primary Care Provider. Call [facility] ([phone]) or report to the closest Emergency Room. Call 911 if necessary. 05/08/18 2579 <Electronically signed by Reggie Sierra MD> Date Reggie Sierra MD Cosigner Signature (If Indicated): Date CC: Kennedy Gipson MD PROGRESS Observed: 05/08/2018 Status: COMPLETED Source: [place] 2:46 PM [facility] REPOSITORY HNO ID: [id number] Author: Antionette ([facility]) Podlogar Service: (none) Author Type: Nurse Practitioner Type: Progress Notes Filed: 05/09/2018 8:50 AM Note Text: 05/08/2018 Patient presents with: Dizziness: pt states started monday with dizziness, weakness , nausea and fever SUBJECTIVE: This is a 22 year old that is here today for Above Complaints. Seen in ER three times since 05/07/2018 with last visit being this morning Today at [facility] CBC, BMP, troponin, strep influenza, lactic acid and CXR WNL. Reports UA at [place] on Monday showed concerns for UTI- was provided prescription for Cipro,however she did not start it. On 05/07 visit to [facility] it was noted she had an elevated [...] disorder) - Anemia - Anxiety Melchor Hand [facility] - Asthma - Bipolar disorder ([facility]) - Chlamydia 2013 - Complication of anesthesia migraines after anesthesia - Convulsions ([facility]) - GERD (gastroesophageal reflux disease) - Migraines - Polysubstance abuse ([facility]) History. Last use of any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 Accessed 06/02/2015. ? Cristy Hardin., Prevalence of migraine in patients with a history of self-reported or physician-diagnosed sinus headache. Arch Work Counselor Med, 2004. 164(16):1769-72. ? Copyright 6175-4216 The [facility]. All rights reserved. Prescriptions ordered this encounter Disp Refills Start End DOXYCYCLINE HYCLATE 100 MG CAPSULE 20 c* 0 01/01/2018 01/11/2018 Route: ORAL Sig: Take 1 capsule by mouth twice daily for 10 days. PSEUDOEPHEDRINE ER 120 MG TABLET,EXT* 30 t* 0 01/01/2018 Route: ORAL Sig: Take 1 tablet by mouth every 12 hours. Letter Text Nelly Sands APRN.[facility] [address] [facility] [address] Dept: [phone] 01/01/2018 Fernando Rousseau [address] [facility] [address] To Whom it May Concern: This is to certify that Fernando Rousseau was seen at our office for medical care. Fernando may return to work on 01/03/2018. If you have any questions please feel free to call. Sincerely: Nelly Sands APRN.[facility] Encounter Status:Closed by NELLY SANDS on 01/01/18 LUMBAR SPINE 2 OR 3 Observed: 12/28/2017 Status: F Source: [place] VIEWS 2:22 PM [facility] REPOSITORY [facility] Imaging Services [address] [facility] [address] Lumbar Spine 2 or 3 Views MR#: [id number] Acct: [id number] Name: FERNANDO ROUSSEAU Rep #: [id number] : 1995 F 22 From: Antoine Gonzalez MD PCP: Vega Gandhi MD Status: REG CLI Study: Lumbar Spine 2 or 3 Views Date of Exam: 12/25/17 Exam# [id number] Ordering Dr: Josiah Trevizo MD STUDY: X-RAY [...] CC: Josiah Trevizo MD; Vega Gandhi MD Sharepoint Architect: Signed DHEA-S Collected: 12/20/2017 Status: F Source: [place] 11:50 AM [facility] REPOSITORY TYPE CODE TESTS RESULT OUT OF REFERENCE UNITS RANGE LAB DHEAS 148.0-407.0 ug/dL DHEA-S 271.5 Result Comment: Reference ranges are age and gender specific. For additional information, reference range tables can be found in the laboratory test directory. The normal values are based on the following source: Dehydroepiandrosterone sulfate (DHEA S) [package insert V 17.0 Wolof]. [employer], [place], [place]: February 2013. Performed By: #### DHEAS, E2, FSH, TSH, PROL, FTESTO #### [facility] [address] [place], [place] [address] ESTRADIOL-17B Collected: 12/20/2017 Status: F Source: [place] 11:50 AM [facility] REPOSITORY TYPE CODE TESTS RESULT OUT [...] 3243 pg/mL Second trimester : 1561 TO 12765 pg/mL Third trimester : 8285 to >14022 pg/mL Post-menopausal Estradiol reference range: < 41 pg/mL Reference: 1. Estradiol - E2 (Estradiol III) [package insert V 3.0 Wolof]. [employer], [place], [place], December 2015. Performed By: #### DHEAS, E2, FSH, TSH, PROL, FTESTO #### [facility] [address] [id number] FSH Collected: 12/20/2017 Status: F Source: [place] 11:50 AM [facility] REPOSITORY TYPE CODE TESTS RESULT OUT OF RANGE REFERENCE UNITS LAB FSH mU/mL FSH 2.8 Result Comment: Reference range: Follicular: 2-11 Midcycle: 10-30 Luteal: 1-9 Post Bahama: 20-100 Performed By: #### DHEAS, E2, FSH, TSH, PROL, FTESTO #### [facility] [place], [place] [address] TSH Collected: 12/20/2017 Status: F Source: [place] 11:50 AM [facility] REPOSITORY TYPE CODE TESTS RESULT OUT [...] Clinical Practice Guideline. J Clin Endocrinol Metab, 2012:97:7387-6547. 2. Yoselyn SR. Overview of thyroid disease in . UpToDate. 2016. Accessed on January 08, 2016. Performed By: #### DHEAS, E2, FSH, TSH, PROL, FTESTO #### [facility] [address] [place], [place] [address] PROLACTIN Collected: 12/20/2017 Status: F Source: [place] 11:50 AM [facility] REPOSITORY TYPE CODE TESTS RESULT OUT OF REFERENCE UNITS RANGE LAB PROL 4.5-26.8 ng/mL Prolactin 4.6 Performed By: #### DHEAS, E2, FSH, TSH, PROL, FTESTO #### [facility] [address] [place], [place] [address] FREE TESTOSTERONE Collected: 12/20/2017 Status: F Source: [place] 11:50 AM [facility] REPOSITORY TYPE CODE TESTS RESULT OUT OF REFERENCE UNITS RANGE LAB TESTO <40 ng/dL Testosterone 16 LAB FREE 0.8-2.3 % Free Testosterone % 2.3 LAB FRTSTO 1.8-10.4 pg/mL Free Testosterone 3.6 Result Comment: This test was developed and its performance characteristics determined by [facility]'s [facility] Pathology and Laboratory Medicine [place] ([facility]). It has not been cleared or approved by the FDA. [facility] is regulated under CLIA as qualified to perform high-complexity testing. This test is used for clinical purposes. It should not be regarded as investigational or for research. Performed By: #### DHEAS, E2, FSH, TSH, PROL, FTESTO #### [facility] [address] [place], [place] [address] CNOV Observed: 12/20/2017 Status: COMPLETED Source: [place] 10:00 AM [facility] REPOSITORY [facility] FER[facility] TRAN ([id number]) 1995 F Date Time Provider Department 12/20/17 10:00 AM CLARIBEL PLATT [facility] During your visit today, we recorded the following information about you: Blood pressure Weight Height Last Period 128/81 69.7 kg 1.626 m 09/21/17 Claribel Platt MD 12/20/2017 12:08 PM Addendum CONSULT: [facility] SERVICE DATE: December 20, 2017 Consultation requested by Brandi Lea APRN.CNP for an opinion regarding Ms. Mark Wilmar Rousseau, and my final recommendations will be [...] IUD caused miscarriage once (2014). Tubal ligation (2016) [place]: Very painful just since pain started in [...] Has seen therapist, psychologist - last in 2016; Was on Prozac 40mg BID, Buspar 20mg TID History of drug abuse Black out spells Doesn't drive [facility] 10/27/17 Pelvic US [facility] Report Summary: Overall impression: Uterus normal with endometrial thickness of 13.8mm right and left ovaries Minimal amount of free fluid in pelvis. HISTORIES Obstetric History T4 L4 SAB3 TAB1 Ectopic0 Multiple0 Live Births5 Comment: Doesn't have custody of any of her children- secondary to psycholgic diagnoses in past. 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 PAST MEDICAL HISTORY Diagnosis Date - Abnormal Pap smear of cervix - ADHD (attention deficit hyperactivity disorder) - Anemia - Anxiety Dr. Oliver - Asthma - Bipolar disorder (HCC) - Chlamydia 2013 - Complication of anesthesia migraines after anesthesia - Convulsions ([facility]) - GERD (gastroesophageal reflux disease) - Migraines - Polysubstance abuse History. Last use of any illicit drug was September - depression - Preeclampsia - PTSD (post-traumatic stress disorder) - Reactive attachment disorder - Seizure (HCC) psychogenic non epileptic seizures - Tobacco use PAST SURGICAL HISTORY Procedure Laterality Date - COLONOSCOP W/ OR W/O [facility] SPEC 06/12/2017 Colonoscopy [facility] - normal - Bx negative - EGD [...] - Seizures Father - Heart Father 39 NM - Coagulopathy [OTHER] Paternal Aunt - Seizures [...] year old female with Bipolar 1 disorder ([facility]) History of depression History of drug abuse [...] 0.25% Bupivacaine 10 ML --- lot # [id number] EXP: [id number] Wander Amaral Ma 12/20/2017 9:47 AM Signed Flame Annealing Machine Setter offered: Patient declines. Wander Amaral Ma December [...] Floor Physical Therapy Locations Appointments [phone] [facility] Referring Provider: BRANDI LEA ([facility]) [[id number]] Allergies As of Date: 12/20/2017 Noted Allergy [...] seizures Date Reviewed: 12/20/2017 Reviewed by: Joi ([facility]) Lisaer - Fully Assessed Reason for Visit: New Patient [172] Cmt: cpp Primary Visit Diagnosis:Secondary amenorrhea [N91.1] Other Visit Diagnoses:Bipolar 1 disorder (HCC) [F31.9] History of depression [Z86.59] History of drug abuse [Z87.898] PTSD (post-traumatic stress disorder) [F43.10] Migraine with aura and with status migrainosus, not intractable [G43.101] Anxiety [F41.9] Trigger point of abdomen [R10.9] Coccygalgia [M53.3] Order(s):PROLACTIN BLD [SQPROL] Order #: [id number] FUTURE TSH BLD [SQTSH] Order #: [id number] FUTURE FSH BLD [SQFSH] Order #: [id number] FUTURE ESTRADIOL-17B BLD [SQE2] Order #: [id number] FUTURE DHEA-S BLD [SQDHEAS] Order #: [id number] FUTURE TESTOSTERONE, FREE AND TOTAL [SQFTESTO] Order #: [id number] FUTURE TRIGGER POINT INJECTION MULTI 1-2 MUSCLE GR [52924IGC] Order #: [id number] cyclobenzaprine (FLEXERIL) 10 mg tabletTake 1 tablet by mouth three times daily as needed.Disp: 30 tabletRfl: 0 CONSULT TO PAIN MGT ANESTHESIA [19991029] Order #: [id number]: 1 Prescriptions as of 12/20/2017 Sig: NAPROXEN [...] Floor Physical Therapy Locations Appointments [phone] [facility] Visit Notes: >> Wander Cristin Mattson MonDecember 20, 2017 9:46 AM Status: Signed Flame Annealing Machine Setter offered: Patient declines. Wander Amaral Ma December [...] 12/20/17 PROGRESS Observed: 12/19/2017 Status: COMPLETED Source: [place] 4:52 PM [facility] REPOSITORY HNO ID: [id number] Author: Claribel Platt Service: (none) Author Type: Physician Type: Progress Notes Filed: 12/20/2017 12:08 PM Note Text: CONSULT: [facility] SERVICE DATE: December 20, 2017 Consultation requested by Brandi Lea APRN.CNP for an opinion regarding Ms. Fernando Doeevangelist Rousseau, and my final recommendations will be communicated back to the requesting physician by way of shared medical record or letter via mail. PRIMARY CARE PHYSICIAN: Melchor Gipson MD [...] IUD caused miscarriage once (2014). Tubal ligation (2016) [place]: Very painful just since pain started in [...] Has seen therapist, psychologist - last in 2016; Was on Prozac 40mg BID, Buspar 20mg TID History of drug abuse Black out spells Doesn't drive [facility] 10/27/17 Pelvic US I Report Summary: Overall impression: Uterus normal with endometrial thickness of 13.8mm right and left ovaries Minimal amount of free fluid in pelvis. HISTORIES Obstetric History T4 L4 SAB3 TAB1 Ectopic0 Multiple0 Live Births5 Comment: Doesn't have custody of any of her children- secondary to psycholgic diagnoses in past. All losses were followed by a dividing machine operator helper and the children delivered at home and [...] Laterality Date - COLONOSCOP W/ OR W/O [facility] SPEC 06/12/2017 Colonoscopy [facility] - normal - Bx negative - EGD [...] - Seizures Father - Heart Father 39 NM - Coagulopathy [OTHER] Paternal Aunt - Seizures [...] Refer to PFPT , name given Truly Edi P. T> 3. abd wall tpi 4. [...] 0.25% Bupivacaine 10 ML --- lot # [id number] EXP: [id number] BASIC METABOLIC Collected: 11/10/2017 Status: F Source: [place] PROFILE ([facility]) 7:49 AM [facility] REPOSITORY Order Comment: Comments: Fasting Comments: Fasting [...] Performed By: #### L500.2500, L501.9520, L506.0400 #### [facility] [address] [place], [address] THYROID STIM HORMONE Collected: 11/10/2017 Status: F Source: [place] (TSH) 7:49 AM [facility] REPOSITORY Order Comment: Comments: Fasting Comments: Fasting TYPE CODE TESTS RESULT OUT OF RANGE REFERENCE UNITS LAB L501.9520 0.358-3.74 uIU/mL Normal TSH 1.38 Performed By: #### L500.2500, L501.9520, L506.0400 #### [facility] [address] [place], [address] T4 FREE DIRECT Collected: 11/10/2017 Status: F Source: [place] 7:49 AM [facility] REPOSITORY Order Comment: Comments: Fasting Comments: Fasting TYPE CODE TESTS RESULT OUT OF RANGE REFERENCE UNITS LAB L506.0400 0.76-1.46 ng/dL Normal T4 FREE 1.27 DIRECT Performed By: #### L500.2500, L501.9520, L506.0400 #### [facility] [address] [place], [address] HEMOGLOBIN A1C Collected: 11/10/2017 Status: F Source: [place] 7:49 AM [facility] REPOSITORY TYPE CODE TESTS RESULT OUT OF RANGE REFERENCE UNITS LAB L501.9985 4.2-6.3 % Normal HGB A1C 4.9 Performed By: #### L501.9985 #### [facility] [address] [place], [address] INTERNAL MEDICINE Observed: 11/07/2017 Status: F Source: [place] OFFICE VISIT 3:03 PM [facility] Internal Medicine [address] [place] [address] OFFICE VISIT Date of Service: 11/06/17 MR#: [id number] Acct: [id number] Name: FERNANDO ROUSSEAU Rep #: [id number] : 1995 Provider: Vega Gandhi MD Age/Sex: 22/F Location: [facility] Status: Signed Intake Vital Signs11/06/17 Height 5 [...] She had previously followed up at the [facility] and was seen by Dr. Gipson. She [...] acute distress Orientation: alert, awake, oriented x3 HENMT Head: atraumatic, normocephalic Ears: hearing grossly normal [...] Will follow. This note was generated with Captora dictation software. It may contain incorrect words, [...] signed by Vega Gandhi MD> Date Vega Sue Signature: Date (if applicable) CC: DODIE Observed: 11/07/2017 Status: COMPLETED Source: [place] 12:00 AM [facility] REPOSITORY Telephone (GYNMN) WILMAR ROUSSEAUFERNANDO ([id number]) 1995 F Date Time Provider Department 11/07/17 [...] to: self Call patient at: on cell [phone] (home) [phone] (cell) Payor: [employer] / Plan: BLUE CARD PPO / Product Type: PPO / Hyun Ureña RN 11/07/2017 10:02 AM Signed Attempted to return pt call to assist in scheduling correct appt. Pt [facility]. Msg left for pt to call office. 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 [place] REPOSITORY HNO ID: [id number] Author: Rosalba Guthrie (Pa) Service: (none) Author Type: Physician Instructor Of Education Type: Progress Notes Filed: 11/06/2017 4:53 PM Note Text: Rosalba Guthrie PA-C Department of Orthopaedics Orthopaedics [address] [facility] [address] Dept: [phone] Dept November 06, 2017 CHIEF COMPLAINT: Established [...] her. She states this is not a [facility] claim. Complains of diffuse right wrist pain that is a 9/10 dull, aching, sharpness. Was seen in the ED and had a negative wrist xray, was placed in cock up wrist splint. 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 She is right hand dominant and denies [...] and SL ligament instability. IMAGING: IMPRESSION: Negative Sharepoint Architect: MATILDA ? Transcribe Date/Time: Nov 01 2017 [...] Laterality Date [facility] - normal - Bx negative - EGD [...] - Seizures Father - Heart Father 39 NM - Coagulopathy [OTHER] Paternal Aunt - Seizures [...] PHYSICIAN: Ms. Fernando Rousseau was referred to md for consultation by the following physician. This consultation note will be sent to the following physician by either mail or electronic medical record. Aleisha Huang PA-C [address] [facility] [address] Melchor Gipson MD [address] [facility] [id number] This note was partially generated using Captora voice recognition system, and there may be some incorrect words, spellings, and punctuation that were not noted in checking the note before saving. Rosalba Guthrie PA-C PROGRESS Observed: 11/06/2017 Status: COMPLETED Source: [place] 3:00 PM [facility] REPOSITORY HNO ID: [id number] Author: Elizabeth Bautista Ma Service: (none) Author Type: (none) Type: Progress Notes Filed: 11/06/2017 4:53 PM Note Text: Patient presents with: Established Patient: Rigth wrist sprain - Ref. Aleisha Huang - last seen by 03/09/17 S/P right knee acl reconstruction with [...] worker's comp. Patient states she works at [employer] in [employer]. Patient was seen in and had x-rays [...] pound son that will 1 in November. HALLIE Observed: 11/06/2017 Status: COMPLETED Source: [place] 2:40 PM [facility] REPOSITORY Office Visit (ORTHWS) FERNANDO TRAN ([id number]) 1995 F Date Time Provider Department 11/06/17 2:40 PM ROSALBA GUTHRIE) KIM During your visit today, we recorded the following information about you: Elizabeth Bautista Ma 11/06/2017 4:53 PM Signed Patient presents with: Established Patient: Rigth wrist sprain - Ref. Aleisha Huang - last seen by 03/09/17 S/P right knee acl reconstruction with [...] worker's comp. Patient states she works at [employer] in [place]. Patient was seen in and had x-rays [...] son that will 1 in November. Rosalba Guthrie PA-C 11/06/2017 4:53 PM Signed Rosalba Guthrie PA-C Department of Orthopaedics Orthopaedics [facility] [address] Dept: [phone] Dept November 06, 2017 CHIEF COMPLAINT: Established [...] her. She states this is not a [facility] claim. Complains of diffuse right wrist pain that is a 9/10 dull, aching, sharpness. Was seen in the ED and had a negative wrist xray, was placed in cock up wrist splint. 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 She is right hand dominant and denies [...] and SL ligament instability. IMAGING: IMPRESSION: Negative Sharepoint Architect: MATILDA ? Transcribe Date/Time: Nov 01 2017 [...] Dr. Oliver - Asthma - Bipolar disorder ([facility]) - Chlamydia 2013 - Complication of anesthesia migraines after anesthesia - Convulsions ([facility]) - GERD (gastroesophageal reflux disease) - Migraines - Polysubstance abuse History. Last use of any illicit drug was September - depression - Preeclampsia - PTSD (post-traumatic stress disorder) - Reactive attachment disorder - Seizure ([facility]) psychogenic non epileptic seizures - Tobacco use Past Surgical History: PAST SURGICAL HISTORY Procedure Laterality Date - COLONOSCOP W/ OR W/O [facility] SPEC 06/12/2017 Colonoscopy [facility] - normal - Bx negative - EGD [...] - Seizures Father - Heart Father 39 NM - Coagulopathy [OTHER] Paternal Aunt - Seizures [...] or electronic medical record. Aleisha Huang PA-C [address] [facility] [address] Melchor Gipson MD [address] [facility] [address] This note was partially generated using Captora voice recognition system, and there may be some incorrect words, spellings, and punctuation that were not noted in checking the note before saving. Rosalba Guthrie PA-C Referring Provider: ALEISHA HUANG (DONOVAN) [[id number]] Allergies As of Date: 11/06/2017 Noted Allergy [...] seizures Date Reviewed: 11/06/2017 Reviewed by: Rosalba Guthrie (Pa) - Fully Assessed Reason for Visit: Established [...] by mouth once daily. Letter Text Fernando Rousseau Date [facility] - 1995 [facility] - [id number] Mik Angulo M.D. Department of Orthopaedic Surgery [address] [place] [address] Office: [phone] 11/06/2017 RE: Fernando Rousseau [phone] To Whom It May Concern: I saw Fernando Rousseau in the Department of Orthopaedic Surgery at [facility] for follow-up of her right wrist [...] hesitate to contact my office. Sincerely, Rosalba Guthrie PA-C Encounter Status:Closed by ROSALBA GUTHRIE PA-C on 11/06/17 XR WRIST 3V PA/LAT/OBL Observed: 11/01/2017 Status: F Source: [place] 12:37 PM [facility] REPOSITORY * * *Final Report* * * [...] and soft tissues are unremarkable. IMPRESSION: Negative Sharepoint Architect: MATILDA Transcribe Date/Time: Nov 01 2017 12:45P Dictated by : LILIA ZHANG MD This examination was interpreted and the report reviewed and electronically signed by: LILIA ZHANG MD on Nov 01 2017 12:45PM EST [id number] PROGRESS Observed: 11/01/2017 Status: COMPLETED Source: [place] 12:32 PM [facility] REPOSITORY HNO ID: [id number] Author: Nusrat Valencia Service: (none) Author Type: (none) Type: Progress [...] PM PROGRESS Observed: 11/01/2017 Status: COMPLETED Source: [place] 11:56 AM [facility] REPOSITORY HNO ID: [id number] Author: Aleisha Young (Pa) Sandra Service: (none) Author Type: Physician Instructor Of Education Type: Progress Notes Filed: 11/01/2017 1:51 PM [...] Dr. Oliver - Asthma - Bipolar disorder ([facility]) - Chlamydia 2013 - Complication of anesthesia migraines after anesthesia - Convulsions ([facility]) - GERD (gastroesophageal reflux disease) - Migraines - Polysubstance abuse History. Last use of any illicit drug was September - depression - Preeclampsia - PTSD (post-traumatic stress disorder) - Reactive attachment disorder - Seizure ([facility]) psychogenic non epileptic seizures - Tobacco use [...] Laterality Date - [facility]oscopy [facility] - normal - Bx negative - EGD [...] - Seizures Father - Heart Father 39 NM - Coagulopathy [OTHER] Paternal Aunt - Seizures [...] NATE Kirk Observed: 11/01/2017 Status: COMPLETED Source: [place] 11:45 AM [facility] REPOSITORY Office Visit (WSTR) FERNANDO TRAN ([id number]) 1995 F Date Time Provider Department 11/01/17 11:45 AM ALEISHA HUANG (DONOVAN) WSTR During your visit today, we recorded the [...] of anesthesia migraines after anesthesia - Convulsions ([facility]) - GERD (gastroesophageal reflux disease) - Migraines - Polysubstance abuse History. Last use of any illicit drug was September - depression - Preeclampsia - PTSD (post-traumatic stress disorder) - Reactive attachment disorder - Seizure ([facility]) psychogenic non epileptic seizures - Tobacco use [...] W/ OR W/O [facility] SPEC 06/12/2017 Colonoscopy [facility] - normal - Bx negative - EGD [...] - Seizures Father - Heart Father 39 NM - Coagulopathy [OTHER] Paternal Aunt - Seizures [...] 3V PA/LAT/OBL RT - CONSULT TO ORTHOPAEDICS Aleisha Huang PA-C Referring Provider: SELF [200] Allergies As of [...] 0 XR WRIST GENERAL 3V PA/LAT/OBL RT [[id number]] Order #: [id number] FUTURE CONSULT TO ORTHOPAEDICS [9026] Order #: [id number]: 1 Prescriptions as of 11/01/2017 Sig: MULTI [...] METRONIDAZOLE 500 MG TABLET >> Azul Duran LPN 11/01/2017 11:52 AM >> AZUL DURAN LPN MonNov 01, 2017 11:52 AM Not Taking [...] 1 tablet daily until gone. Letter Text [place] [facility] DONOVAN Gaspar [address] [place], [place] [address] 11/01/2017 TO WHOM IT MAY CONCERN: This is to confirm that Fernando Rousseau had an appointment and was seen at the [facility] in the Department of Urgent Care by DONOVAN Gaspar on 11/01/2017 and may return to work on 11/02/2017. She will need to wear the splint for a week with limited lifting right hand. Sincerely yours, DONOVAN Gaspar Encounter Status:Closed by ALEISHA HUANG PA-C on 11/01/17 CNPN Observed: 10/30/2017 Status: COMPLETED Source: [place] 12:00 AM [facility] REPOSITORY Telephone (WOOB) FERNANDO TRAN ([id number]) 1995 F Date Time Provider Department 10/30/17 BRANDI LEA (RAI) WOJANET During your visit today, we recorded the following information about you: Brandi Lea APRN.RAI 10/30/2017 12:41 PM Signed Please let the pt know that she is BV+ and that I sent in flagyl to her pharmacy for her. All other test were negative including the ultrasound. If pelvic pain continues after treating the BV then I would recommend her seeing the pelvic pain clinic. Thanks, Brandi Lea APRN.RAI Acosta LPN 10/30/2017 1:23 PM Signed Pt called [...] for 7 days. Encounter Status:Closed by ALINE ACOSTA LPN on 10/30/17 GC/CHLAMYDIA AMPLIF Collected: 10/27/2017 Status: F Source: [place] 10:23 PM [facility] RE[facility] TYPE CODE TESTS RESULT OUT OF REFERENCE UNITS RANGE LAB GCCTSR GC/Chlam Amp Cervix Source LAB GCAMPL GC Negative Amplification for Neisseria gonorrhoeae by amplification. LAB CLAMPL Chlamydia Negative Amplif for Chlamydia trachomatis by amplification. Performed By: #### GCCT #### [facility] [address] [place] [id number] RAJINDEROV Observed: 10/27/2017 Status: COMPLETED Source: [place] 11:00 AM [facility] REPOSITORY Office Visit (WOOB) FERNANDO TRAN ([id number]) 1995 F Date Time Provider Department 10/27/17 11:00 AM BRANDI LEA (RAI) WOOB During your visit today, we recorded the following information about you: Blood pressure Weight Height Last Period 122/74 67.6 kg 1.613 m 09/02/17 Brandi Lea APRN.CNP 10/27/2017 11:43 AM Signed Flame Annealing Machine Setter offered: Patient declines. Fernando Rousseau is a [...] past. All losses were followed by a dividing machine operator helper and the children delivered at home and [...] external genitalia normal, normal Bartholin's glands, urethra, Sanctuary's glands, no vulvar lesions, no cervical lesions, [...] ultrasound ordered for pelvic pain Brandi Lea APRN.RAI Referring Provider: BRANDI LEA ([facility]) [[id number]] Allergies As of Date: 10/27/2017 Noted Allergy [...] Vaginal discharge [N89.8] Order(s):HCG QUAL UR B/O [2127171] Order #: [id number] GC/CHLAMYDIA DNA DET [SQGCCAMP] Order #: [id number] PELVIC US WHI [0368566] Order #: [id number]: 1 BACTERIAL VAGINOSIS SCORED GRAM STAIN [SQBVSTN] Order #: [id number] VAGINAL SMEAR FOR JM [SQCANSTN] Order #: [id number] TRICHOMONAS PREP [SQTRICHO] Order #: [id number] Prescriptions as of 10/27/2017 Sig: MULTI ORAL [...] Reason for discontinue is not on file. Gnnhpgnoq-Zesysnbz-Rkaym-W.Pet (HEMO* 1 Tu* 1 03/17/2017 10/27/2017 Route: RECTAL Si application by RECTAL route twice daily. Disc: Reason for discontinue is not on file. Disposition: Return in 1 year (on 10/27/2018) for Annual Exam. 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 Fernando Rousseau is a 22 year old who presents for her annual gynecologic exam with complaints, heavy and irregular bleeding, pelvic pain, vaginal dryness and pain with intercourse. Menses: cycles every 25-30 days and 5-7 days of flow. Before feb of this year they were regular but [...] past. 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 PAST MEDICAL HISTORY Diagnosis Date - Abnormal Pap smear of cervix - ADHD (attention deficit hyperactivity disorder) - Anemia - Anxiety Dr. Oliver - Asthma - Bipolar disorder ([facility]) - Chlamydia 2013 - Complication of anesthesia migraines after anesthesia - Convulsions ([facility]) - GERD (gastroesophageal reflux disease) - Migraines - Polysubstance abuse History. 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 Request/Comment: - Swab Smear Result - Negative for Trichomonas vaginalis antigen This test was developed and its performance characteristics determined by [facility] [place] ([facility]). It has not been cleared or approved by the FDA. [facility] is regulated under CLIA as qualified to perform high-complexity testing. This test is used for clinical purposes. It should not be regarded as investigational or for research. Performed By: #### TRICHO #### [facility] [address] [place] [id number] Observed: 10/27/2017 Status: F Source: [place] BACT/CAND VAG GRM ST 3:34 AM [facility] REPOSITORY Sp. Request/Comment: - Swab Smear Result - BACTERIAL VAGINOSIS RESULT: Stain results consistent with bacterial vaginosis. --> ABNORMAL ALERT No Yeast observed Many Polymorphonuclear leukocytes Performed By: #### BVCNSM #### [facility] [place] [id number] ALLERGIES ALLERGIES DATE TYPE / NAME / CODE REACTION SEVERITY SOURCE CODE 08/09/2018 Drug Penicillins/[id number] Anaphylaxis Unknown [place] Allergy/41 476(RXNORM) [facility] 0993355([facility]) Repository 08/09/2018 Drug Sulfa (Sulfonamide Hives Unknown [place] Allergy/41 Antibiotics)/M82461 [facility] [id number]( 0491(RXNORM) [facility]) Repository 08/09/2018 Drug nifedipine/B7034351 Angioedema Unknown [place] Allergy/41 10(RXNORM) [facility] 8721224([facility]) Repository 08/09/2018 Drug progesterone/M44350 Hives Unknown [place] Allergy/41 1290(RXNORM) [facility] 7333535([facility]) Repository 08/09/2018 Drug cephalexin/D8954982 Hives Unknown [place] Allergy/41 16(RXNORM) [facility] 4616400([facility]) Repository 08/09/2018 Drug clindamycin/J339551 Anaphylaxis Unknown [place] Allergy/41 794(RXNORM) Community 2584389([facility]) Repository 08/09/2018 Drug adhesive Rash SV [place] Allergy/41 tape/P531169022(RXN Community 8977374([facility]) Repository 08/09/2018 Drug dicyclomine/D001419 Itching Unknown [place] Allergy/41 711(RXNORM) Community 0512490([facility]) Repository 08/09/2018 Drug ondansetron/J563405 Other Unknown [place] Allergy/41 807(RXNORM) Community 1585443([facility]) Repository 08/09/2018 Drug meloxicam/Y97108908 Chest tightness Unknown [place] Allergy/41 2(RXNORM) Community 3378055([facility]) Repository 08/09/2018 Drug oseltamivir/D938458 Hives Unknown [place] Allergy/41 918(RXNORM) Community 6791879([facility]) Repository 08/09/2018 Drug latex/E080595203(RX Rash SV [place] Allergy/41 NORM) Community 0348666([facility]) Repository 08/09/2018 Drug prednisone/G3710545 Rash Unknown [place] Allergy/41 64(RXNORM) Community 7569292([facility]) Repository 06/22/2018 Drug terbutaline/T935101 Angioedema Unknown [place] Allergy/41 731(RXNORM) Community 2931937([facility]) Repository 01/01/2018 DRUG BENZONATATE RASH [place] INGREDI/41 Clinic Main 8273303([facility]) Repository 12/20/2017 DRUG MELOXICAM OTHER: SEE C [place] [facility]GREDI/41 [facility]11[facility] 11/01/2017 DRUG METRONIDAZOLE HCL ITCHING [place] IN[facility]EDI/41 Clinic Main 7132809([facility]) Repository 05/25/2017 DRUG DICYCLOMINE ITCHING [place] IN[facility]EDI/41 Clinic Main 1704859([facility]) Repository 01/02/2017 Drug SULFA (SULFONAMIDE HIVES [place] Class/4195 ANTIBIOTICS) Clinic Main [address]([facility]) Repository 10/13/2016 DRUG CEPHALEXIN ANAPHYLAXIS [place] INGREDI/41 Clinic Main 4753133( [place] OMED [facility]) Repository 10/13/2016 DRUG/63395 PROGESTERONE RASH [place] 1003(SNOME AQUEOUS Clinic Main D CT) [place] Repository 10/22/2015 DRUG CLINDAMYCIN HIVES [place] INGREDI/41 Clinic Main 3162110( [place] O[facility]) Repository 10/22/2015 DRUG PENICILLIN HIVES [place] INGREDI/41 Clinic Main 3469990( [place] [facility]) Repository 10/22/2015 DRUG NIFEDIPINE HIVES [place] INGREDI/41 Clinic Main 2574710( [place] [facility]) Repository 10/22/2015 [facility] 9846779( [place] [facility]) Repository NG/5082491 CLINDAMYCIN [facility] 06([facility]) Repository NG/0975116 DICYCLOMINE [facility] 06([facility]) Repository NG/4722258 METRONIDAZOLE HCL [facility] 06([facility]) Repository NG/8853514 CEPHALEXIN [facility] 06([facility]) Repository NG/0748203 MELOXICAM [facility] 06([facility]) Repository NG/6547459 PENICILLIN [facility] 06([facility]) Repository NG/7861992 NIFEDIPINE [facility] 06([facility]) Repository NG/6232638 PROGESTERONE [facility] 06([facility]OMED [facility]) Repository NG/6404567 SULFA (SULFONAMIDE [facility] 06(SNOMED ANTIBIOTICS) [facility]) Repository NG/3346655 TERBUTALINE [facility] 06([facility]) Repository NG/6530224 BENZONATATE [facility] 06([facility]) Repository ENCOUNTERS ENCOUNTERS ADMIT/DISCHARGE ACCOUNT NUMBER ADMITTING ENCOUNTER LOCATION SOURCE CLASS 08/09/2018/08/09/19 [id number] Emergency [address] ding:ED Repository 08/06/2018/08/07/19 [id number] Ambulatory [address] Main [place] Repository 08/02/2018/08/03/19 [id number] Ambulatory [address] Main [place] Repository 07/23/2018 [id number] Ambulatory [facility] ding:MRI Repository 07/19/2018/07/20/20 [id number] Emergency [place] [address] ding:ED Repository 07/11/2018/07/12/20 [id number] Ambulatory [address] Repository 06/28/2018 [id number] Ambulatory [facility] Repository 06/27/2018/06/28/20 [id number] Ambulatory [address] Repository 06/25/2018/06/25/20 [id number] Ambulatory [address] ding:SDCRoom Repository : AC17 05/22/2018/05/24/20 [id number] Ambulatory [address] Repository 05/15/2018/05/16/20 [id number] Ambulatory [address] Repository 05/08/2018/05/09/20 [id number] Ambulatory [address] Repository 05/08/2018/05/08/20 [id number] Emergency [place] ding:ED Repository 05/07/2018/05/07/20 [id number] Emergency BBuilding:[address] Repository 05/07/2018/05/07/20 [id number] Emergency [place] ding:ED Repository 04/27/2018 [id number] Ambulatory [facility] ding:PT Repository 04/09/2018/04/11/20 [id number] Ambulatory [address] Repository 04/05/2018/04/10/20 [id number] Ambulatory [address] Repository 04/03/2018/04/04/20 [id number] Emergency [place] ding:ED Repository 03/22/2018/03/22/20 [id number] Ambulatory [address] Repository 03/22/2018/03/22/20 [id number] Ambulatory [address] Repository 03/22/2018/03/23/20 [id number] Ambulatory [address] Repository 03/11/2018/03/11/20 [id number] Emergency [place] [address] ding:ED Repository 03/09/2018/03/12/20 [id number] Ambulatory [address] Main [place] Repository 02/27/2018 [id number] Ambulatory [facility] MEDICAL Repository CENTERBuildi ng:AKPTG 02/17/2018/02/18/20 [id number] Emergency [address] ding:ED Repository 01/11/2018/01/16/20 [id number] Ambulatory [address] [place] Repository 01/01/2018/01/03/20 [id number] Ambulatory [address] Main [place] Repository 12/25/2017 [id number] Ambulatory [facility] ding:RAD Repository 12/20/2017 [id number] Ambulatory [facility] [place] Repository 12/20/2017/12/26/19 [id number] Ambulatory [address] [place] Repository 11/13/2017 [id number] Ambulatory BMSBuilding: [place] [facility] Repository 11/10/2017 [id number] Ambulatory [facility] ding:LAB Repository 11/06/2017/11/09/19 [id number] Ambulatory [address] Main [place] Repository 11/06/2017/11/07/19 [id number] [facility] BMSBuilding[facility] [place] [facility] 11/01/2017/11/02/19 [id number] Ambulatory [address] Main [place] Repository 11/01/2017/11/03/19 [id number] Ambulatory [address] [place] Repository 10/27/2017/10/31/19 [id number] Ambulatory [address] Main [place] Repository 10/27/2017/10/31/19 [id number] Ambulatory [address] Main [place] Repository PAYERS PAYERS ENCOUNTER GUARANTOR PAYER SUBSCRIBER SOURCE 08/09/2018 FERNANDO NATHAN5 Primary FERNANDO LONGB: [facility] Insurance:[facility] [id number] [id number], Policy Number: [facility] [address]Bay: [phone] [id number] Repository [phone] () Date:2018-08-09 [address]ATTN: [place] [address]MD: 08/09/2018 Secondary NOT GIVENUNK [place] Insurance:SELF PAY [facility] Number: Effective Repository Date:2018-08-09 07/23/2018 FERNANDO G [id number] Primary FERNANDO Irais WHITEDOB: [place] [facility] Insurance:[employer] [id number] Community RDAPT [id number], Policy Number: [facility] [address]Wcr: (330 [id number] Repository [phone] () Date:2018-07-09[address]ATTN: [place] [address]PY: 07/23/2018 Secondary NOT GIVENUNK [place] Insurance:SELF PAY Community [facility] Number: Effective Repository Date:2018-07-09 07/19/2018 FERNANDO Irais [id number] Primary FERNANDO G WHITEDOB: [facility]:[employer] [id number] [facility] RDAPT [id number], Policy Number: [facility] [address]Olm: 330 [id number] Repository [phone] () Date:2018-07-19P [address]ATTN: [place] [address]GD: 07/19/2018 Secondary NOT GIVENUNK [place] Insurance:SELF PAY Community [facility] Number: Effective Repository Date:2018-07-19 06/25/2018 FERNANDO Irais [id number] Primary FERNANDO G WHITEDOB: [facility] Insurance:[employer] [id number] Community [address] [id number], Policy Number: [facility] [address]Qsn: 330 [id number] Repository [phone] () Date:2018-06-20[address]ATTN: [place] [address]SM: 06/25/2018 Secondary NOT GIVENUNK [place] Insurance:SELF PAY Community [facility] Number: Effective Repository Date:2018-06-20 05/08/2018 FERNANDO G [id number] Primary FERNANDO G WHITEDOB: [facility] Insurance:[employer] [id number] [facility] RD[address] [id number], Policy Number: [place] [id number]: ([phone] [id number] Repository [phone] () Date:2018-05-08[address]ATTN: [place] [address]WX: 05/08/2018 Secondary NOT GIVENUNK [place] Insurance:SELF PAY [facility] Number: Effective Repository Date:2018-05-08 05/07/2018 FERNANDO G WHITEDOB: Primary FERNANDO G WHITEDOB: [place] [employer] [id number] Insurance:[employer] [id number] Foundation [place] Repository [address] [id number], Number: [facility] [id number] [id number] [place] [address]Uhf: [phone] 13762~FERNANDO.NikkiRACHANA Date:2018-05-07 [phone] ()Tel: [email or web address] [facility]: [id number] Name:XPO Box (WP) () [address] [place] [address]EA: 05/07/2018 FERNANDO G [id number] Primary FERNANDO G WHITEDOB: [facility] Insurance:[employer] [id number] Formerly [facility] RDAPT [id number], Policy Number: [facility] [address]Fmk: (897) [id number] Repository [phone] () Date:2018-05-07[address]ATTN: [place] [address]MY: 05/07/2018 Secondary NOT GIVENUNK [place] Insurance:SELF PAY [facility] Number: Effective Repository Date:2018-05-07 04/27/2018 FERNANDO G [id number] Primary FERNANDO G WHITEDOB: [facility] Insurance:[employer] [id number] [facility] RDAPT [id number], Policy Number: [facility] [id number]: 330 [id number] Repository [phone] (HP) Date:2017-03-24[address]ATTN: [place] [address]YS: 04/27/2018 Secondary NOT GIVENUNK [place] Insurance:SELF PAY [facility] Number: Effective Repository Date:2018-04-03 04/03/2018 FERNANDO G [id number] Primary FERNANDO G WHITEDOB: [place] Insurance:[employer] [id number] [facility] RDAPT [id number], Policy Number: [facility] [id number]: 330 [id number] Repository [phone] () Date:2018-04-03[address]ATTN: [place] [address]HM: 04/03/2018 Secondary NOT GIVENUNK [place] Insurance:SELF PAY [facility] Number: Effective Repository Date:2018-04-03 03/11/2018 FERNANDO G [id number] Primary FERNANDO G WHITEDOB: [place] Insurance:[employer] [id number] [facility] RDAPT [id number], [place] Number: [facility] [address]Kdd: 330 [id number] Repository [phone] () e Date:[id number] [facility] [address], [place] [address]KO: 03/11/2018 Secondary FERNANDO G WHITEDOB: [place] Insurance:[employer] [id number] Community Policy Number: Hospital [id number] Repository Date:2018-03-11[address]ATTN: [place] [address]FF: 03/11/2018 Tertiary NOT GIVENUNK [place] Insurance:SELF PAY [facility] Number: Effective Repository Date:2018-03-11 02/27/2018 FERNANDO WHITEDOB: Primary FERNANDO WHITEDOB: [facility] [id number] Insurance:[employer] [id number] [place] MEDICAID[place] Repository [address] [id number], Number: [place] [address]Adl: 330 [id number] [phone] () Date: 02/17/2018 FERNANDO G [id number] Primary ROSA MARIAVILMA DOEMERDOB: [facility] Insurance:[employer]HE[employer] [id number] [facility] RDAPT ESYOANNA, [place] Number: [facility] [address]Tra: (330 [id number] Repository [phone] () e Date:[id number] [address] [place] [address]IW: 02/17/2018 Secondary FERNANDO G WHITEDOB: [place] Insurance:[employer] [id number] Community Policy Number: [facility] [id number] Repository Date:2018-02-17[address]ATTN: [place] [address]IZ: 02/17/2018 Tertiary NOT GIVENUNK [place] Insurance:SELF PAY [facility] Number: Effective Repository Date:2018-02-17 12/25/2017 FERNANDO [id number] Primary FERNANDO WHITEDOB: [facility] Insurance:[employer] [id number] [facility] E[facility], [place]: [place] [id number]: (330 [id number] Repository [phone] () e Date:[id number] [address] [place] [address]CU: 12/25/2017 Secondary FERNANDO WHITEDOB: [place] Insurance:[employer] [id number] [facility] Policy Number: Hospital [id number] Repository Date:2017-12-27[address]ATTN: [place] [address]IN: 12/25/2017 Tertiary NOT GIVENUNK [place] Insurance:SELF PAY [facility] Number: Effective Repository Date:2017-12-25 11/13/2017 FERNANDO [id number] Primary FERNANDO WHITEDOB: [place] Insurance:[employer] [id number] [facility] RDAPT [facility], [place] Number: [facility] [id number]: (330 [id number] Repository [phone] () e Date:[id number] [address] [place] [address]ZM: 11/13/2017 Secondary FERNANDO WHITEDOB: [place] Insurance:[employer] [id number] [facility] Policy Number: [facility] [id number] Repository Date:2017-11-[address]ATTN: [place] [address]QT: 11/13/2017 Tertiary NOT GIVENUNK [place] Insurance:SELF PAY [facility] Number: Effective Repository Date:2017-11-06 11/10/2017 FERNANDO [id number] Primary FERNANDO WHITEDOB: [place] Insurance:[employer] [id number] [facility], cy Number: [facility] [address]Oaj: (330 [id number] Repository [phone] () e Date:5478-10-18OW [address] [place] [address]UX: 11/10/2017 Secondary FERNANDO WHITEDOB: [place] Insurance:[employer] [id number] [facility] Policy Number: Hospital [id number] Repository Date:2017-11-[address]ATTN: [place] [address]JM: 11/10/2017 Tertiary NOT GIVENUNK [place] Insurance:SELF PAY [facility] Number: Effective Repository Date:2017-11-10 11/06/2017 FERNANDO G [id number] Primary FERNANDO G WHITEDOB: [place] Insurance:[employer] [id number] [facility] [address], Policy Number: [facility] [address]Abk: 330 [id number] Repository [phone] () Date:2017-10-09 [address]ATTN: [place] [address]KT: 11/06/2017 Secondary NOT GIVENUNK [place] Insurance:SELF PAY [facility]: Effective Repository Date:2017-11-06
== END 2018-08-09 22:57 | disposition home or self-care (01) ==
PROVIDERS: Emergency Provider Emergency Medicine; Family Provider Family Medicine; PCP Family Medicine
DX: R10.11 Right upper quadrant pain (principal); R11.0 Nausea; K59.00 Constipation, unspecified; Z72.0 Tobacco use
CPT/HCPCS: 74177; 76705; 80053; 81001; 81025; 83690; 85025; 96361; 96374; 96375; 99283; J7030; Q9967; A4216; J2405

== ENCOUNTER 2018-10-02 12:57 | Emergency (ER) | payer MEDICAID, SELFPAY ==
[2018-10-02 12:57] VITALS: BP 104/70; PULSE 99; RESP 18; TEMP 36.9; O2SAT 99; BMI 25.4
--- NOTE | 2018-10-02 13:24 | ED.VISSUMM ---
- ER Visit Summary Date of Service: 10/02/18 Chief Complaint: Cough History of Present Illness: The patient is a 23 F with history of chronic bronchitis and asthma who presents to the emergency department cough. Patient had the symptoms for the past 2 days. She states that she had cough with productive sputum. She is also admits to subjective fevers. She has not been on any recent antibiotics. Her son is sick with similar symptoms. Physical Examination: Vital signs reviewed General: Well-nourished, well-developed Head: Normocephalic, atraumatic Eyes: Pupils equal and reactive, extraocular muscles intact Neck, supple, no lymphadenopathy Heart: Regular rate and rhythm Respiratory: No distress, scant wheeze throughout Abdomen: Soft, nontender, nondistended, no peritoneal signs Back: Nontender Extremities: Nontender, no edema, no cords Skin: Normal color no rash Neuro: Alert and oriented, no focal or lateralizing deficits Test Results: [] Emergency Department Course and Treatment: The patient does have a slight cough. She has a scant wheeze. She is given a nebulized breathing treatment with improvement of her aeration. The patient does have allergy to prednisone cannot take it. I do feel that this would likely help her. Her chest x-ray is obtained was unremarkable. My suspicion is that this is viral. I do not see a clear indication for antibiotics. Patient be discharged home. Treatment Plan: [] Disposition: Discharge Impression: 1. Viral bronchitis This note was generated with [employer] dictation software. It may contain incorrect words, spelling, and punctuation that were not noted in review of the chart prior to signing ED Disposition - Plan for ED Patient: Instructions: ED Upper Resp Infec No Abx Tx Prescriptions: Benzonatate [Tessalon Perle] 200 mg PO TID PRN PRN #20 cap PRN Reason: Cough Referrals: Kennedy Gipson MD [Primary Care Provider] -
[2018-10-02] MEDS: Ipratropium/Albuterol Sulfate 3 ML AMPUL.NEB INHALATION (13:31)
[2018-10-02 13:32] VITALS: PULSE 75; RESP 18; O2SAT 99
--- NOTE | 2018-10-02 14:47 | RAD_ITS ---
STUDY: X-RAY CHEST REASON FOR EXAM: Female, 23 years old. Cough and shortness of breath. Lightheadedness. TECHNIQUE: PA and lateral views of the chest. COMPARISON: Comparison is made with prior study dated May 08, 2018. FINDINGS: The lungs are clear and expanded. Scattered calcified granulomas. There is no demonstrated pleural abnormality. Normal size heart. Normal mediastinum and mir. Normal visualized pulmonary arteries. Normal visualized aortic arch and descending thoracic aorta. Normal visualized thoracic spine. Normal visualized ribs, clavicles, and shoulders. There is no demonstrated abnormality of the visualized soft tissue structures of the upper abdomen. RAD/Chest PA and Lateral IMPRESSION: Normal x-ray examination of the chest. Electronically Signed: Robson Pathak, at 15:16 EDT , Service support ,
--- NOTE | 2018-10-02 16:05 | NURSING ---
UPON GOING THROUGH D/C PAPERWORK WITH PT, PT STATES I CAN'T TAKE TESSALON PERLE, I'M ALLERGIC. INGA BERMAN STATES OK WE DON'T HAVE THAT ON YOUR ALLERGY LIST SO I'LL ADD IT TO YOUR LIST. UNFORTUNATELY THERE ISN'T ANYTHING DIFFERENT HE CAN GIVE YOU PT STATES THAT'S OK, I'M JUST READY TO GO
== END 2018-10-02 16:10 | disposition home or self-care (01) ==
LOC: ED 13:39
PROVIDERS: Emergency Provider Emergency Medicine; Family Provider Family Medicine; PCP Family Medicine
DX: J20.8 Acute bronchitis due to other specified organisms (principal); J06.9 Acute upper respiratory infection, unspecified; J45.909 Unspecified asthma, uncomplicated; Z79.82 Long term (current) use of aspirin; Z79.899 Other long term (current) drug therapy; Z88.8 Allergy status to other drugs, medicaments and biological substances; Z87.19 Personal history of other diseases of the digestive system
CPT/HCPCS: 71046; 87804; 94640; 99282

== ENCOUNTER 2018-10-16 12:44 | Emergency (ER) | payer MEDICAID, SELFPAY ==
[2018-10-16 12:45] VITALS: BP 122/67; PULSE 87; RESP 16; TEMP 36.6; O2SAT 97; BMI 24.3
--- NOTE | 2018-10-16 13:09 | CT_ITS ---
STUDY: CT BRAIN WITHOUT CONTRAST REASON FOR EXAM: Female, 23 years old. Headache and left eye pressure RADIATION DOSAGE (If Supplied By Facility): CTDIvol = ( 44.99 ) mGy, DLP = ( 779.24 ) mGycm TECHNIQUE: Transaxial CT imaging of the brain was performed without administration of intravenous contrast material. Individualized dose optimization techniques were used for this CT. COMPARISON: No relevant priors. FINDINGS: Normal soft tissue structures. Normal calvarium. Normal size ventricles and extra-axial spaces for the patient's age. Normal white matter tracts of the cerebral hemispheres. Normal basal ganglia and thalami. Normal brainstem. Normal cerebellum. There is no intracranial hemorrhage. There are no findings of an acute ischemic infarction. There is marked opacification of the left frontal sinus, left anterior ethmoid air cells and bilateral maxillary sinuses. There is an air-fluid level in the left maxillary sinus. The mastoid air cells are clear. CT/Brain/Head without Contrast IMPRESSION: Marked acute on chronic sinusitis. No intracranial abnormality. Electronically Signed: Keshawn Spring, at 14:19 EDT Tel , Service support ,
[2018-10-16] MEDS: proCHLORPERazine 10 MG/2 ML Vial IV (13:28)
[2018-10-16] MEDS: DiphenhydrAMINE 50 MG/ML Syringe 25 MG IV (13:28)
[2018-10-16] MEDS: 0.9% Normal Saline 1,000 ML 999 ML IV (13:29)
--- NOTE | 2018-10-16 13:50 | ED.DCSUM_ITS ---
- ER Visit Summary Date of Service: 10/16/18 Chief Complaint: Headache History of Present Illness: The patient is a 23 F who presents with a headache that has been getting worse over the past week and a half. Patient states she has a history of migraine headaches but states this is different. Patient stat es she is having nausea and vomiting with this headache and changes in her vision. Patient states that she gets tunnel vision and loss of vision in her left eye. Patient states that when her headache gets severe she gets numbness in her face. Patient states her pain is worse with light and with laying flat. Patient states pain is over the left frontal area. Patient describes the pain is sharp and throbbing. Physical Examination: Vital signs are stable. Patient is afebrile. Patient is in no acute distress. Oral mucosa is pink and moist. Neck is supple. Trachea is midline. There is no JVD noted. Heart was regular rate and rhythm. Lungs are clear and equal bilateral. Abdomen is soft and nontender. Cranial nerves II through XII are intact. There are no focal motor or sensory deficits noted. The remaining physical exam is within normal limits. Test Results: CT scan of the brain was obtained. There is bilateral maxillary sinusitis. There is left frontal and left ethmoid sinusitis. There is no acute intracranial abnormality. Emergency Department Course and Treatment: Patient was given IV fluids, Compazine, and Benadryl. She felt somewhat better after this. Patient was given an injection of morphine. Patient was given a prescription for doxycycline and Flonase. Patient was instructed to follow-up with her primary care physician in 5-7 days. Patient understood and was agreeable with the plan. All questions were answered. Disposition: Discharge home Impression: 1. Sinusitis of the left frontal, left ethmoid, and bilateral maxillary sinuses 2. Headache This note was generated with [employer] dictation software. It may contain incorrect words, spelling, and punctuation that were not noted in review of the chart prior to signing ED Disposition - Plan for ED Patient: Disposition: Home or Assisted Living Diagnosis: Sinusitis Instructions: ED Headache Sinus Prescriptions: Fluticasone 0.05% [Flonase Nasal Wilson] 1 spray NASAL DAILY #1 bottle Doxycycline 100 mg PO BID #20 cap Referrals: Kennedy Gipson MD [Primary Care Provider] - 3-5 Days
[2018-10-16] MEDS: Morphine 4 MG/ML Syringe IV (15:03)
[2018-10-16 15:05] VITALS: BP 106/58; PULSE 79; RESP 16; O2SAT 99
[2018-10-16 15:24] VITALS: PULSE 81; RESP 14; O2SAT 98
== END 2018-10-16 15:24 | disposition home or self-care (01) ==
PROVIDERS: Emergency Provider Emergency Medicine; Family Provider Family Medicine; PCP Family Medicine
DX: J32.1 Chronic frontal sinusitis (principal); J32.2 Chronic ethmoidal sinusitis; J32.0 Chronic maxillary sinusitis; R51 Headache; F32.9 Major depressive disorder, single episode, unspecified; Z79.899 Other long term (current) drug therapy; Z72.0 Tobacco use
CPT/HCPCS: 70450; 96361; 96374; 96375; 99283; J7030; A4216

== ENCOUNTER 2018-12-10 16:25 | Emergency (ER) | payer MEDICAID, SELFPAY ==
[2018-12-10 16:26] VITALS: BP 114/74; PULSE 103; PULSE 108; RESP 16; TEMP 36.7; O2SAT 97; BMI 23.4
[2018-12-10 16:28] VITALS: BP 114/74; PULSE 108; RESP 16; TEMP 36.7; O2SAT 97
--- NOTE | 2018-12-10 16:51 | EKG12_ITS ---
Test Reason : GENERAL ILLNESS Blood Pressure : / mmHG Vent. Rate : 073 BPM Atrial Rate : 073 BPM P-R Int : 160 ms QRS Dur : 098 ms QT Int : 380 ms P-R-T Axes : 079 086 063 degrees QTc Int : 418 ms Normal sinus rhythm with sinus arrhythmia Normal ECG Confirmed by NIGEL CRUZ, WILVER ([id number]), offline editor ANNEL HAMM ([id number]) on 12/13/2018 1:19:17 PM Referred By: CHIN Confirmed By:WILVER MANNING MD
--- NOTE | 2018-12-10 16:56 | ED.DCSUM_ITS ---
History of Present Illness Chief Complaint: General Illness Detail of Chief Complaint: Dizziness, lightheadedness, pallor, nausea and fever Informant: Patient Onset: Today - Fever today 101.0 ?F, Days - Past several days lightheadedness, dizziness with intermittent pallor Context: Sudden Onset Timing: Intermittent Quality: Primary orthostatic, today fever Location: Not applicable Current Severity: Mild Maximum Severity: Moderate Worsened by: Standing Relieved by: Better supine Associated Symptoms: Documented fever to 101.0 ?F Narrative: Patient is a 23-year-old who had a total hysterectomy vaginally December 05 at the [facility]. She was discharged December 06. She reported lightheadedness prior to discharge. She states she has not felt well. She developed abrupt onset of dizziness which is orthostatic symptoms with nausea. She feels as if she is going to pass out. She also reports intermittent nausea. She denies headache, she denies visual, ocular auditory symptoms. She denies URI symptoms. She does report slight shortness of breath. She denies chest discomfort or pleuritic chest pain. She reports minimal lower abdominal pain. She denies abnormal vaginal bleeding. She denies dysuria, frequency, urgency and has not noted any blood when she urinates. She has noticed slight blood when she wipes which may be secondary to the hysterectomy. She denies skin lesions. She denies paresthesia, anesthesia or motor weakness. Prior similar symptoms: No Recent Illness/Hospitalization: Yes - Past Medical History (1) Acute back pain with sciatica Status: Acute (2) Anxiety disorder Status: Chronic (3) Asthma Status: Chronic (4) Bipolar disorder Status: Chronic (5) Chronic bronchitis Status: Chronic (6) GERD (gastroesophageal reflux disease) Status: Chronic (7) IBS (irritable bowel syndrome) Status: Chronic (8) PTSD (post-traumatic stress disorder) Status: Chronic (9) Seizures Status: Chronic (10) Stomach ulcer Status: Chronic Past Medical History - Allergies and Home Meds Allergies/Adverse Reactions: Allergies adhesive tape Allergy (Severe, Verified 12/10/18 16:32) Rash latex Allergy (Severe, Verified 12/10/18 16:32) Rash benzonatate [From Tessalon Perles] Allergy (Verified 12/10/18 16:32) Rash cephalexin [From Keflex] Allergy (Verified 12/10/18 16:32) Hives clindamycin Allergy (Verified 12/10/18 16:32) Anaphylaxis dicyclomine [From Bentyl] Allergy (Verified 12/10/18 16:32) Itching meloxicam [From Mobic] Allergy (Verified 12/10/18 16:32) Chest tightness metronidazole [From Flagyl] Allergy (Verified 12/10/18 16:33) Itching nifedipine [From Procardia] Allergy (Verified 12/10/18 16:32) Angioedema oseltamivir [From Tamiflu] Allergy (Verified 12/10/18 16:32) Hives Penicillins Allergy (Verified 12/10/18 16:32) Anaphylaxis prednisone Allergy (Verified 12/10/18 16:32) Rash progesterone Allergy (Verified 12/10/18 16:32) Hives -cream form only Sulfa (Sulfonamide Antibiotics) Allergy (Verified 12/10/18 16:32) Hives terbutaline [From Brethine] Allergy (Verified 12/10/18 16:32) Angioedema ondansetron [From Zofran (as hydrochloride)] Adverse Reaction (Verified 12/10/18 16:32) Other PT STATES IT MAKES ME CONSTIPATED Primary Care Physician: Kennedy Gipson MD [Primary Care Provider] - Prior records reviewed: Yes Surgical History: hysterectomy - Total vaginal at [facility] Smoking Status: Current every day smoker Alcohol: Rare Review of Systems General: Reports: Chills, Fever - Documented 201.0 ?F today, Malaise. Denies: Subjective, Sweats, Weight loss Eyes: Denies: Visual changes - bilaterally, Blurred Vision - bilaterally, Diplopia ENT: Denies: Bilateral ear pain, Rhinorrhea Cardiovascular: Denies: Chest pain, Palpitations, Heart racing Respiratory: Reports: Dyspnea. Denies: Cough, Sputum, Dyspnea on exertion, Orthopnea, Paroxysmal nocturnal dyspnea Gastrointestinal: Reports: Abdominal pain, Nausea. Denies: Vomiting, Diarrhea, Constipation, Melena, Hematochezia Genitourinary: Denies: Dysuria, Hematuria, Frequency Musculoskeletal: Denies: Myalgias, Arthralgias, Neck pain, Back pain, Extremity Pain Skin: Denies: Rash Neurological: Reports: Weakness. Denies: Headache, Parasthesia, Numbness Endocrine: Denies: Polyuria Hematologic: Denies: Easy bruising, Easy bleeding Allergy: Denies: Uticaria Physical Exam Vital Signs/Narrative: Vital Signs Temp Pulse Resp BP Pulse Ox 12/10/18 16:28 98.1 F 108 H 16 114/74 97 12/10/18 16:26 98.1 F 103 H 16 114/74 97 Inital Vital Signs reviewed: Yes General: Well nourished, Well developed, No Acute Distress Head: Normocephalic, Atraumatic Eyes: Perrl, EOMI. Negative for: Pale conjunctiva, Scleral icterus, - ENT: Moist mucous membranes, No rhinorrhea, TM's clear Neck: Supple, Nontender, No lymphadenopathy, No JVD, - Cardiovascular: Regular rhythm, No murmurs, Normal S1, Normal S2, Tachycardia Respiratory: No distress, CTA bilaterally, Chest nontender Abdomen: Soft, Nondistended, No masses, Tender - Low abdominal/pelvic region. Negative for: Nontender, Normal bowel sounds, Guarding, Rebound tenderness, Hepatomegaly, Splenomegaly, Mass, Pulsatile mass, Ventral hernia, Umbilical hernia Rectal: Deferred Back: Nontender, Normal Inspection Extremities: Nontender, No edema, Calf Tenderness, - - There is no asymmetry, swelling, discoloration, leg vein distention, palpable cords or tenderness along the distribution of the deep venous system. Skin: Normal color, No rash, No Trauma. Negative for: Cyanosis, Jaundice Neurological: Alert, Oriented x3, Cranial nerves II-XII grossly intact, Normal Strength, Normal Sensation Psychological: Normal affect, Normal Mood Diagnostic/Tx/Re-eval Chest X-Ray - ED: 2 View, Read by ED Physician, Normal, Heart, Lungs, Me diastinum, Bony Structures, No Acute Disease, - - Chest x-ray unchanged compared to October 02, 2018. Impressions Chest X-Ray 12/10/18 17:35 IMPRESSION: No acute thoracic pathology. Electronically Signed: Steve Oquendo, at 18:04 EDT Tel , Service support , 12/10/18 17:35 Chest PA and Lateral [RAD] Stat Laboratory Results 12/10/18 12/10/18 12/10/18 17:10 17:22 17:22 WBC 7.2 RBC 4.57 Hgb 12.9 Hct 38.2 MCV 83.6 MCH 28.2 MCHC 33.8 RDW 12.1 RDW Differential 36.6 Plt Count 206 MPV 11.7 Immature Gran % (Auto) 0.100 Neut % (Auto) 52.0 Lymph % (Auto) 34.7 [place] % (Auto) 8.4 Eos % (Auto) 3.5 Baso % (Auto) 1.3 H Absolute Neuts (auto) 3.7 Absolute Lymphs (auto) 2.49 Total Counted Not Reportable Sodium 138 Potassium 3.5 Chloride 107 Carbon Dioxide 26.0 Anion Gap 5 BUN 12 Creatinine 0.86 Estim Creat Clear Calc 90.77 Est GFR (MDRD) Af Amer 104 Est GFR (MDRD) Non-Af 86 BUN/Creatinine Ratio 14.0 Glucose 88 Calcium 9.0 Urine Color Yellow Urine Clarity Sl. Cloudy Urine pH 5.0 Ur Specific Flushing 1.005 Urine Protein 30 H Urine Glucose (UA) Normal Urine Ketones Negative Urine Occult Blood 10 H Urine Nitrite Positive H Urine Bilirubin Negative Urine Urobilinogen Normal Ur Leukocyte Esterase 100 H Urine RBC 0 SEEN Urine WBC 0 SEEN Ur Squamous Epith Cells 0 SEEN Urine Bacteria 0 SEEN Urine Mucus 0 SEEN - Rhythm Strip Rhythm Strip: Sinus Tach Rate: 102 Ectopy: None - Medical Decision Making Since patient has documented which 101.0 ?F postop day 5 and complains of shortness of breath will obtain chest x-ray to evaluate for pneumonia. CBC was obtained to assess white count as well as H&H and she is reporting orthostatic symptoms. Orthostatic vital signs were ordered. Basic minimal panel was obtained to assess BUN to creatinine ratio as well as CO2 and anion gap. She was placed on a monitor. Monitor reveals a sinus tachycardia. Patient was reassessed at 1820. She feels better. Heart rate is improved after fluid bolus. She was informed that her work-up was unremarkable. Her hemoglobin is higher than normal which would indicate she is dehydrated with hemoconcentration and would explain her orthostatic vital signs. ED Disposition - Plan for ED Patient: Disposition: Home or Assisted Living Diagnosis: Postoperative fever, Orthostatic hypotension Instructions: ED Hypotension Orthostatic, ED Fever Unconf Cause Referrals: Kennedy Gipson MD [Primary Care Provider] - As Needed
[2018-12-10 17:19] VITALS: BP 102/79; BP 116/81; BP 123/82; PULSE 107; PULSE 75; PULSE 88
[2018-12-10 17:33] LABS: Bacteria 0 SEEN /hpf (None Seen); Mucous, Urine 0 SEEN /hpf (<or=2+); Red Blood Cells-Urine 0 SEEN /hpf (0-5); Squamous Epithelial Cells - UA 0 SEEN /hpf (5-10); White Blood Cells 0 SEEN /hpf (0-5)
--- NOTE | 2018-12-10 17:35 | RAD_ITS ---
STUDY: X-RAY CHEST REASON FOR EXAM: Female, 23 years old. Fever TECHNIQUE: Frontal view of the chest COMPARISON: X-Ray Chest October 02, 2018 FINDINGS: The lungs are clear. There are no pleural effusions. There is no pneumothorax. The heart is normal in size. The visualized osseous structures are within normal limits. RAD/Chest PA and Lateral IMPRESSION: No acute thoracic pathology. Electronically Signed: Steve Oquendo, at 18:04 EDT Tel , Service support ,
[2018-12-10 17:47] LABS: Color, Urine Yellow (Yellow); Glucose, Dipstick Normal (Normal); Ketone-Dipstick Negative (Negative); Leukocyte Esterase-Dipstick 100 /ul (Negative); Nitrite-Dipstick Positive (Negative); Occult Blood-Urine 10 /ul (Negative); Protein-Dipstick 30 mg/dl (Negative); Specific Gravity, Urine 1.005 (1.002-1.030); Urine Bilirubin Dipstick Negative (Negative); Urine Clarity Sl. Cloudy (Clear); Urine Urobilinogen Normal (Normal)
[2018-12-10 17:52] LABS: Anion Gap 5 (5-15); BUN 12 mg/dL (7-18); Chloride 107 mmol/L (98-107); Creatinine, Serum 0.86 mg/dL (0.55-1.02); EST Glomerular Filtration Rate 86 mL/min (>60); Est Glom Filt Rate - Afr Amer 104 mL/min (>60); Estimated Creatinine Clearance 90.77 ml/min; Glucose 88 mg/dL (74-106); Potassium 3.5 mmol/L (3.5-5.1); Sodium Level 138 mmol/L (136-145)
[2018-12-10 18:02] LABS: Absolute Lymphocyte Count 2.49 X10^3/ul (0.83-4.51); Absolute Neutrophil Count 3.7 X10^3/uL (2.0-7.7); Basophil# 0.09 X10^3/uL; Basophil% 1.3 % (0-1); Eosinophil# 0.25 X10^3/uL; Eosinophils% 3.5 % (0-5); Hematocrit 38.2 % (37-47); Hemoglobin 12.9 g/dl (12.0-15.0); Lymphocyte # 2.49 X10^3/ul (4.0); Lymphocyte % 34.7 % (19-41); Mean Corp Hgb Conc 33.8 g/gl (32-36); Mean Corpuscular Hgb 28.2 pg (27.0-32.0); Mean Corpuscular Volume 83.6 fL (81-99); Mean Platelet Vol. 11.7 fl (6.2-12.0); Monocyte% 8.4 % (0-10); Neutrophil # 3.73 X10^3/uL (2.7-7.7); Platelet Count 206 K/mm3 (150-450); RBC Distribution Width CV 12.1 % (11.6-14.6); RBC Distribution Width SD 36.6 fl (35.1-43.9); Red Blood Count 4.57 M/mm3 (4.2-5.4); White Blood Count 7.2 K/mm3 (4.4-11.0)
[2018-12-10 18:03] LABS: POSITIVE COUNT NO; POSITIVE DIFFERENTIAL NO; POSITIVE MORPHOLOGY NO
[2018-12-10] MEDS: 0.9% Normal Saline 1,000 ML 1000 ML IV (18:08)
[2018-12-10 18:33] VITALS: BP 103/67; PULSE 84; RESP 16; O2SAT 99
== END 2018-12-10 18:37 | disposition home or self-care (01) ==
PROVIDERS: Emergency Provider Emergency Medicine; Family Provider Family Medicine; PCP Family Medicine
DX: R50.82 Postprocedural fever (principal); I95.1 Orthostatic hypotension; Z90.710 Acquired absence of both cervix and uterus; F41.9 Anxiety disorder, unspecified; J45.909 Unspecified asthma, uncomplicated; F31.9 Bipolar disorder, unspecified; K21.9 Gastro-esophageal reflux disease without esophagitis; K58.9 Irritable bowel syndrome, unspecified; F43.10 Post-traumatic stress disorder, unspecified; G40.909 Epilepsy, unspecified, not intractable, without status epilepticus; Z87.19 Personal history of other diseases of the digestive system; Z79.899 Other long term (current) drug therapy; F17.200 Nicotine dependence, unspecified, uncomplicated
CPT/HCPCS: 71046; 80048; 81001; 85025; 93005; 96360; 99285; J7030; A4216

== ENCOUNTER 2018-12-26 13:52 | Emergency (ER) | payer MEDICAID, SELFPAY ==
[2018-12-26 13:53] VITALS: BP 114/65; PULSE 90; RESP 16; TEMP 36.8; O2SAT 100; BMI 22.9
--- NOTE | 2018-12-26 14:23 | ED.DCSUM_ITS ---
History of Present Illness Chief Complaint: Fever Detail of Chief Complaint: 101.9 ?F last evening Informant: Patient Onset: Days - Fever 2 nights ago greater than 100 and last evening 101.9 Context: Sudden Onset Timing: Intermittent Quality: Head pain and fever Location: Global Current Severity: Mild Maximum Severity: Moderate Worsened by: Possibly light Relieved by: Nothing Associated Symptoms: Nausea Narrative: Patient is a 23-year-old woman status post hysterectomy mid November who presents with fever 2 nights ago and document temperature 101.9 last evening. She can planes of global headache. She reports photophobia. Denies ear pain. She does complain nasal congestion, which she contributes to allergies. She denies sore throat. She denies cough, shortness of breath or difficulty breathing. She does report nausea without vomiting or diarrhea. She denies dysuria, frequency, urgency or hematuria. She denies myalgias arthralgias. She denies skin lesion or rash. Prior similar symptoms: No Recent Illness/Hospitalization: Yes - Past Medical History (1) Anxiety disorder Status: Chronic (2) Bipolar disorder Status: Chronic (3) IBS (irritable bowel syndrome) Status: Chronic (4) Migraines Status: Chronic (5) PTSD (post-traumatic stress disorder) Status: Chronic (6) Seizures Status: Chronic Past Medical History - Allergies and Home Meds Allergies/Adverse Reactions: Allergies adhesive tape Allergy (Severe, Verified 12/26/18 13:53) Rash latex Allergy (Severe, Verified 12/26/18 13:53) Rash benzonatate [From Tessalon Perles] Allergy (Verified 12/26/18 13:53) Rash cephalexin [From Keflex] Allergy (Verified 12/26/18 13:53) Hives clindamycin Allergy (Verified 12/26/18 13:53) Anaphylaxis dicyclomine [From Bentyl] Allergy (Verified 12/26/18 13:53) Itching meloxicam [From Mobic] Allergy (Verified 12/26/18 13:53) Chest tightness metronidazole [From Flagyl] Allergy (Verified 12/26/18 13:53) Itching nifedipine [From Procardia] Allergy (Verified 12/26/18 13:53) Angioedema oseltamivir [From Tamiflu] Allergy (Verified 12/26/18 13:53) Hives Penicillins Allergy (Verified 12/26/18 13:53) Anaphylaxis prednisone Allergy (Verified 12/26/18 13:53) Rash progesterone Allergy (Verified 12/26/18 13:53) Hives -cream form only Sulfa (Sulfonamide Antibiotics) Allergy (Verified 12/26/18 13:53) Hives terbutaline [From Brethine] Allergy (Verified 12/26/18 13:53) Angioedema ondansetron [From Zofran (as hydrochloride)] Adverse Reaction (Verified 12/26/18 13:53) Other PT STATES IT MAKES ME CONSTIPATED Primary Care Physician: Kennedy Gipson MD [Primary Care Provider] - Prior records reviewed: Yes Surgical History: hysterectomy - Total vaginal at [facility] Main [facility] Lives: Alone Smoking Status: Current every day smoker Alcohol: Rare Review of Systems General: Reports: Chills, Fever. Denies: Malaise, Subjective, Sweats, Weight loss Eyes: Reports: - - She reports photophobia. Denies: Visual changes - bilaterally, Blurred Vision - bilaterally, Diplopia ENT: Reports: Rhinorrhea. Denies: Bilateral ear pain, Sore throat Cardiovascular: Denies: Chest pain, Palpitations Respiratory: Reports: Cough. Denies: Dyspnea, Sputum, Dyspnea on exertion Gastrointestinal: Reports: Nausea. Denies: Abdominal pain, Vomiting, Diarrhea, Constipation, Melena, Hematochezia, -, - Genitourinary: Denies: Dysuria, Hematuria, Frequency Musculoskeletal: Reports: Neck pain. Denies: Myalgias, Arthralgias, Back pain, Extremity Pain Skin: Denies: Rash, Wounds Neurological: Reports: Headache. Denies: Weakness, Parasthesia, Numbness Endocrine: Denies: Polyuria, Polydipsia Hematologic: Denies: Easy bruising Physical Exam Vital Signs/Narrative: Vital Signs Temp Pulse Resp BP Pulse Ox 12/26/18 13:53 98.2 F 90 16 114/65 100 Inital Vital Signs reviewed: Yes - She has not taken an antipyretic since last evening. General: Well nourished, Well developed, No Acute Distress Head: Normocephalic, Atraumatic Eyes: Perrl, EOMI. Negative for: Pale conjunctiva, Scleral icterus, - - Fund uscopic exam is unremarkable with no evidence of photophobia. ENT: Moist mucous membranes, No rhinorrhea, TM's clear Neck: Supple, Nontender, No lymphadenopathy, No JVD, - - No meningeal findings. Cardiovascular: Regular rate, Regular rhythm, No murmurs, Normal S1, Normal S2 Respiratory: No distress, CTA bilaterally, Chest nontender Abdomen: Soft, Nondistended, Normal bowel sounds, No masses, Tender - Periumbilical. Negative for: Guarding, Rebound tenderness, Hepatomegaly, Splenomegaly, Mass, Pulsatile mass, Umbilical hernia Rectal: Deferred Back: Nontender, Normal Inspection. Negative for: CVA tenderness Extremities: Nontender, No edema Skin: Normal color, No rash Neurological: Alert, Oriented x3, Cranial nerves II-XII grossly intact, Normal Strength, Normal Sensation, Normal Gait Psychological: Normal affect, Normal Mood Diagnostic/Tx/Re-eval Laboratory Results 12/26/18 12/26/18 12/26/18 14:40 14:40 14:40 WBC 7.3 RBC 4.37 Hgb 12.5 Hct 37.1 MCV 84.9 MCH 28.6 MCHC 33.7 RDW 12.3 RDW Differential 38.3 Plt Count 197 MPV 10.9 Immature Gran % (Auto) 0.300 Neut % (Auto) 56.1 Lymph % (Auto) 25.5 [place] % (Auto) 16.6 H Eos % (Auto) 1.1 Baso % (Auto) 0.4 Absolute Neuts (auto) 4.1 Absolute Lymphs (auto) 1.85 Total Counted Not Reportable Sodium 138 Potassium 4.0 Chloride 106 Carbon Dioxide 25.0 Anion Gap 7 BUN 13 Creatinine 0.78 Estim Creat Clear Calc 100.07 Est GFR (MDRD) Af Amer 116 Est GFR (MDRD) Non-Af 96 BUN/Creatinine Ratio 16.7 Glucose 81 Calcium 8.5 Urine Color Yellow Urine Clarity Clear Urine pH 6.0 Ur Specific [place] 1.015 Urine Protein Negative Urine Glucose (UA) Normal Urine Ketones Negative Urine Occult Blood 10 H Urine Nitrite Negative Urine Bilirubin Negative Urine Urobilinogen Normal Ur Leukocyte Esterase 25 H Urine RBC 0-5 SEEN Urine WBC 0-5 SEEN Ur Squamous Epith Cells 0-5 SEEN Urine Bacteria 0 SEEN Urine Mucus 0 SEEN - Medical Decision Making With complaint of headache, documented fever and nausea will obtain CBC, BMP and UA to determine etiology of her fever. She does have history of frequent urinary tract infections. Otherwise suspect viral etiology and headache is secondary to viral illness. CBC, BMP and UA are all negative. Since patient is presently afebrile with normal work-up and normal exam will discharge with appropriate home-going instructions ED Disposition - Plan for ED Patient: Disposition: Home or Assisted Living Diagnosis: Fever, unknown origin Instructions: ED Fever Unconf Cause Referrals: Kennedy Gipson MD [Primary Care Provider] - 3-5 Days
[2018-12-26 14:51] LABS: Bacteria 0 SEEN /hpf (None Seen); Mucous, Urine 0 SEEN /hpf (<or=2+)
[2018-12-26 15:00] LABS: Absolute Lymphocyte Count 1.85 X10^3/ul (0.83-4.51); Absolute Neutrophil Count 4.1 X10^3/uL (2.0-7.7); Basophil# 0.03 X10^3/uL; Basophil% 0.4 % (0-1); Eosinophil# 0.08 X10^3/uL; Eosinophils% 1.1 % (0-5); Hematocrit 37.1 % (37-47); Hemoglobin 12.5 g/dl (12.0-15.0); Lymphocyte # 1.85 X10^3/ul (4.0); Lymphocyte % 25.5 % (19-41); Mean Corp Hgb Conc 33.7 g/gl (32-36); Mean Corpuscular Hgb 28.6 pg (27.0-32.0); Mean Corpuscular Volume 84.9 fL (81-99); Mean Platelet Vol. 10.9 fl (6.2-12.0); Monocyte% 16.6 % (0-10); Neutrophil # 4.07 X10^3/uL (2.7-7.7); Neutrophil % 56.1 % (47-70); Platelet Count 197 K/mm3 (150-450); RBC Distribution Width CV 12.3 % (11.6-14.6); RBC Distribution Width SD 38.3 fl (35.1-43.9); Red Blood Count 4.37 M/mm3 (4.2-5.4); White Blood Count 7.3 K/mm3 (4.4-11.0)
[2018-12-26 15:05] LABS: POSITIVE COUNT NO; POSITIVE DIFFERENTIAL NO; POSITIVE MORPHOLOGY NO
[2018-12-26 15:07] LABS: Color, Urine Yellow (Yellow); Glucose, Dipstick Normal (Normal); Ketone-Dipstick Negative (Negative); Leukocyte Esterase-Dipstick 25 /ul (Negative); Nitrite-Dipstick Negative (Negative); Occult Blood-Urine 10 /ul (Negative); Protein-Dipstick Negative (Negative); Specific Gravity, Urine 1.015 (1.002-1.030); Urine Bilirubin Dipstick Negative (Negative); Urine Clarity Clear (Clear); Urine Urobilinogen Normal (Normal)
[2018-12-26 15:12] LABS: Anion Gap 7 (5-15); BUN 13 mg/dL (7-18); BUN/Creat Ratio 16.7 RATIO (10-20); Calcium,Total 8.5 mg/dL (8.5-10.1); Chloride 106 mmol/L (98-107); Creatinine, Serum 0.78 mg/dL (0.55-1.02); EST Glomerular Filtration Rate 96 mL/min (>60); Est Glom Filt Rate - Afr Amer 116 mL/min (>60); Estimated Creatinine Clearance 100.07 ml/min; Glucose 81 mg/dL (74-106); Sodium Level 138 mmol/L (136-145)
[2018-12-26 15:15] LABS: Red Blood Cells-Urine 0-5 SEEN /hpf (0-5); Squamous Epithelial Cells - UA 0-5 SEEN /hpf (5-10); White Blood Cells 0-5 SEEN /hpf (0-5)
[2018-12-26 15:35] VITALS: PULSE 81; RESP 18; O2SAT 98
== END 2018-12-26 15:35 | disposition home or self-care (01) ==
PROVIDERS: Emergency Provider Emergency Medicine; Family Provider Family Medicine; PCP Family Medicine
DX: R50.9 Fever, unspecified (principal); H53.149 Visual discomfort, unspecified; J34.89 Other specified disorders of nose and nasal sinuses; R05 Cough; R11.0 Nausea; M54.2 Cervicalgia; R51 Headache; F41.9 Anxiety disorder, unspecified; F31.9 Bipolar disorder, unspecified; K58.9 Irritable bowel syndrome, unspecified; G43.909 Migraine, unspecified, not intractable, without status migrainosus; F43.10 Post-traumatic stress disorder, unspecified; G40.909 Epilepsy, unspecified, not intractable, without status epilepticus; Z87.440 Personal history of urinary (tract) infections; Z79.899 Other long term (current) drug therapy; F17.200 Nicotine dependence, unspecified, uncomplicated
CPT/HCPCS: 80048; 81001; 85025; 99284; A4216

== ENCOUNTER 2019-01-23 11:53 | Emergency (ER) | payer MEDICAID, SELFPAY ==
[2019-01-23 11:54] VITALS: BP 136/80; PULSE 106; RESP 16; TEMP 36.9; BMI 21.6
[2019-01-23 12:09] VITALS: BP 102/66; PULSE 80; RESP 15; O2SAT 99
--- NOTE | 2019-01-23 12:09 | ED.VIS.GEN ---
History of Present Illness Chief Complaint: Lower Extremity Injury Informant: Patient Onset: Days Current Severity: Mild Narrative: Right knee pain and injury. The patient has a history of right knee ACL reconstructive repair with autograft from her gastroc area she believes. Done at [facility]. About a year ago. 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 Apparently yesterday she was going from the seated to standing position when she sprints more pain in the right knee that persisted today she presents for evaluation. She had no direct trauma no numbness weakness paresthesias her symptoms are better if she keeps her knee extended they are worse if she flexes or tries to extend her knee. There is no numbness weakness paresthesias to her lower extremity she denies she tried to see her [facility] orthopedic surgeon but could not get an appointment for today Past Medical History - Allergies and Home Meds Allergies/Adverse Reactions: Allergies adhesive tape Allergy (Severe, Verified 01/23/19 11:56) Rash latex Allergy (Severe, Verified 01/23/19 11:56) Rash benzonatate [From Tessalon Perles] Allergy (Verified 01/23/19 11:56) Rash cephalexin [From Keflex] Allergy (Verified 01/23/19 11:56) Hives clindamycin Allergy (Verified 01/23/19 11:56) Anaphylaxis dicyclomine [From Bentyl] Allergy (Verified 01/23/19 11:56) Itching meloxicam [From Mobic] Allergy (Verified 01/23/19 11:56) Chest tightness metronidazole [From Flagyl] Allergy (Verified 01/23/19 11:56) Itching nifedipine [From Procardia] Allergy (Verified 01/23/19 11:56) Angioedema oseltamivir [From Tamiflu] Allergy (Verified 01/23/19 11:56) Hives Penicillins Allergy (Verified 01/23/19 11:56) Anaphylaxis prednisone Allergy (Verified 01/23/19 11:56) Rash progesterone Allergy (Verified 01/23/19 11:56) Hives -cream form only Sulfa (Sulfonamide Antibiotics) Allergy (Verified 01/23/19 11:56) Hives terbutaline [From Brethine] Allergy (Verified 01/23/19 11:56) Angioedema ondansetron [From Zofran (as hydrochloride)] Adverse Reaction (Verified 01/23/19 11:56) Other PT STATES IT MAKES ME CONSTIPATED Primary Care Physician: Kennedy Gipson MD [Primary Care Provider] - Past Medical History: - Surgical History: hysterectomy - Total vaginal at [facility] Main campus Smoking Status: Current every day smoker Review of Systems ROS: - As above General: Denies: Chills, Fever, Sweats Eyes: Denies: Visual changes - bilaterally, Diplopia ENT: Denies: Rhinorrhea, Sore throat Cardiovascular: Denies: Chest pain, Palpitations Respiratory: Denies: Dyspnea, Cough, Dyspnea on exertion Gastrointestinal: Denies: Abdominal pain, Nausea, Vomiting, Diarrhea, Melena, Hematochezia Genitourinary: Denies: Dysuria, Hematuria, Frequency Musculoskeletal: Reports: Extremity Pain. Denies: Back pain Skin: Denies: Rash, Wounds Neurological: Denies: Headache, Weakness, Numbness Physical Exam Vital Signs/Narrative: Vital Signs Temp Pulse Resp BP 01/23/19 11:54 98.5 F 106 H 16 136/80 H General: Well nourished, Well developed, No Acute Distress Head: Normocephalic, Atraumatic Eyes: Perrl, EOMI ENT: Moist mucous membranes, No rhinorrhea Neck: Supple, Nontender Cardiovascular: Regular rate, Regular rhythm, No murmurs Respiratory: No distress, CTA bilaterally, Chest nontender Abdomen: Soft, Nontender, Nondistended, Normal bowel sounds Back: Nontender, Normal Inspection Extremities: No edema, - - The right knee the patella is in good position there is no instability deformity or signs of infection she is able to flex and extend extensions intact she has a vague diffuse discomfort to the knee when she does so, the hip and the thigh are unremarkable the tib-fib ankle and foot are unremarkable neurovascular function normal Skin: Normal color, No rash Neurological: Alert, Oriented x3, Cranial nerves II-XII grossly intact, Normal Strength, Normal Sensation Psychological: Normal affect, Normal Mood Diagnostic/Tx/Re-eval - Medical Decision Making Given all the above x-rays are obtained Toradol for pain, X-rays generally unremarkable those reports, long conversation with her and her the concept of occult injury need to follow with orthopedic surgeons, she is with crutches ice elevation Naprosyn for pain she will return for change in symptoms and see her outpatient repeat providers Home stable Impression final Right knee injury, history of ACL repair ED Disposition - Plan for ED Patient: Diagnosis: Knee injury Instructions: Knee Sprain Prescriptions: Naproxen [Naprosyn] 500 mg PO BID PRN #20 tab Prescription Printed Referrals: Kennedy Gipson MD [Primary Care Provider] -
[2019-01-23] MEDS: Ketorolac 60 MG/2 ML Vial IM (12:18)
--- NOTE | 2019-01-23 12:25 | RAD_ITS ---
STUDY: X-RAY - RIGHT KNEE REASON FOR EXAM: Female, 23 years old. One-day history of knee pain. No known injury. TECHNIQUE: 4 view(s) of the knee. COMPARISON: Comparison is made with prior study dated April 03, 2018. FINDINGS: There is evidence of prior anterior cruciate ligament repair. Normal proximal tibiofibular articulation. Normal medial femorotibial compartment. Normal lateral femorotibial compartment. Normal patellofemoral articulation. The soft tissue structures are unremarkable. RAD/Knee 4 or More Views IMPRESSION: Stable examination demonstrating evidence of prior anterior cruciate ligament repair. Electronically Signed: Robosn Pathak, at 12:51 EDT , Service support ,
== END 2019-01-23 13:40 | disposition home or self-care (01) ==
LOC: ED 12:15
PROVIDERS: Emergency Provider Emergency Medicine; Family Provider Family Medicine; PCP Family Medicine
DX: S89.91XA Unspecified injury of right lower leg, initial encounter (principal); X58.XXXA Exposure to other specified factors, initial encounter; Y93.9 Activity, unspecified; Y92.9 Unspecified place or not applicable; F17.200 Nicotine dependence, unspecified, uncomplicated
CPT/HCPCS: 73564; 96372; 99282

== ENCOUNTER → 2019-02-11 | Outpatient (CLI) | payer MEDICAID, SELFPAY ==
[2019-01-30 13:41] VITALS: BMI 21.6
--- NOTE | 2019-02-11 06:21 | MRI_ITS ---
STUDY: MRI RIGHT KNEE REASON FOR EXAM: Right knee pain since 01/23/2019. TECHNIQUE: Standardized fat and water weighted pulse sequences were obtained in all 3 orthogonal planes. COMPARISON: Radiographs 01/23/2019 and MRI images 01/09/2017. FINDINGS: There is a vertical band of signal in the posterior horn of the medial meniscus at the periphery extending to the inferior articular surface (proton density sagittal images 30-32), either scarring or recurrent medial meniscal tear. Normal hyaline cartilage of the medial femorotibial compartment. Normal medial femoral condyle and tibial plateau. Normal medial collateral ligamentous complex (MCL). Normal distal semimembranosus, gracilis and semitendinosus tendons. Normal lateral meniscus. Normal hyaline cartilage of the lateral femorotibial compartment. Normal lateral femoral condyle and tibial plateau. Normal proximal tibiofibular articulation. Normal lateral collateral (fibular) ligament. Normal popliteus tendon. Normal biceps femoris tendon. The anterior cruciate ligament graft is intact (series 8 image 12). There is focal anterior arthrofibrosis (T2 sagittal images 12, 13). Normal posterior cruciate ligament (PCL). Normal congruent patellofemoral articulation. Normal hyaline cartilage of the patellofemoral compartment. Normal medial and lateral patellar retinaculum. Normal visualized quadriceps tendon. Normal patellar tendon. There is mild postoperative scarring in Hoffa's fat pad. There is no joint effusion. The soft tissues are unremarkable. There are postoperative changes of the distal femur and proximal tibia from anterior cruciate ligament reconstruction. There is a small enchondroma in the distal femur (T2 coronal image 23) as on the prior study. MRI/Lower Ext Joint Only (Routine) IMPRESSION: Signal alteration at the periphery of the posterior horn of the medial meniscus, either scarring or recurrent medial meniscal tear. Intact anterior cruciate graft with focal anterior arthrofibrosis. Small enchondroma in the distal femur. Electronically Signed: Dipak Soria MD at 7:59 EDT Tel , Service support ,
== END | disposition home or self-care (01) ==
LOC: MRI 06:20
PROVIDERS: Family Provider Family Medicine; PCP Family Medicine; Referring Provider Orthopaedic Surgery; Visit Provider Orthopaedic Surgery
DX: M25.561 Pain in right knee (principal)
CPT/HCPCS: 73721

== ENCOUNTER 2019-03-29 03:16 | Emergency (ER) | payer MEDICAID, SELFPAY ==
[2019-01-30 13:41] VITALS: BMI 21.6
[2019-03-29 03:17] VITALS: BP 123/59; PULSE 81; RESP 16; TEMP 36.8; O2SAT 100; BMI 54.3
--- NOTE | 2019-03-29 03:27 | ED.DCSUM_ITS ---
History of Present Illness Chief Complaint: Lower Extremity Injury Detail of Chief Complaint: Right knee pain Informant: Patient, Significant Other Onset: Today, Hours Context: Sudden Onset Timing: Continuous Quality: Pain Location: Right knee Current Severity: Mild Maximum Severity: Severe Worsened by: Any type of movement Relieved by: Nothing Associated Symptoms: Unable to bear weight Narrative: Patient is 23-year-old female history of ACL reconstructive surgery [address] Mik Brambila. She reports prior problems with knee pain. She was with significant other. She was at a store purchasing bones/in her arms. She stepped forward. She felt snap and pop. She experience severe pain. There is no history of direct trauma. She has no constitutional symptoms. She denies paresthesia, anesthesia or motor weakness. Prior similar symptoms: Yes Recent Illness/Hospitalization: No - Past Medical History (1) Frequent UTI Status: Acute (2) Anxiety disorder Status: Chronic (3) Bipolar disorder Status: Chronic (4) Chronic bronchitis Status: Chronic (5) GERD (gastroesophageal reflux disease) Status: Chronic (6) IBS (irritable bowel syndrome) Status: Chronic (7) PTSD (post-traumatic stress disorder) Status: Chronic (8) Seizures Status: Chronic (9) Stomach ulcer Status: Chronic Past Medical History - Allergies and Home Meds Allergies/Adverse Reactions: Allergies adhesive tape Allergy (Severe, Verified 01/30/19 13:43) Rash latex Allergy (Severe, Verified 03/29/19 03:22) Rash benzonatate [From Tessalon Perles] Allergy (Verified 03/29/19 03:22) Rash cephalexin [From Keflex] Allergy (Verified 03/29/19 03:22) Hives clindamycin Allergy (Verified 03/29/19 03:22) Anaphylaxis dicyclomine [From Bentyl] Allergy (Verified 03/29/19 03:22) Itching meloxicam [From Mobic] Allergy (Verified 03/29/19 03:22) Chest tightness metronidazole [From Flagyl] Allergy (Verified 03/29/19 03:22) Itching nifedipine [From Procardia] Allergy (Verified 03/29/19 03:22) Angioedema oseltamivir [From Tamiflu] Allergy (Verified 03/29/19 03:22) Hives Penicillins Allergy (Verified 03/29/19 03:22) Anaphylaxis prednisone Allergy (Verified 03/29/19 03:22) Rash progesterone Allergy (Verified 03/29/19 03:22) Hives -cream form only Sulfa (Sulfonamide Antibiotics) Allergy (Verified 03/29/19 03:22) Hives terbutaline [From Brethine] Allergy (Verified 03/29/19 03:22) Angioedema ondansetron [From Zofran (as hydrochloride)] Adverse Reaction (Verified 03/29/19 03:22) Other PT STATES IT MAKES ME CONSTIPATED Primary Care Physician: Kennedy Gipson MD [Primary Care Provider] - Prior records reviewed: Yes Surgical History: hysterectomy Lives: Spouse/ Significant Other Smoking Status: Current every day smoker Drugs: None Review of Systems General: Denies: Chills, Fever, Malaise, Sweats Musculoskeletal: Reports: Extremity Pain. Denies: Myalgias, Arthralgias, Neck pain, Back pain, Swelling Skin: Denies: Rash, Wounds Neurological: Denies: Weakness, Parasthesia, Numbness Psych: Reports: Depression, Anxiety Hematologic: Denies: Easy bruising, Easy bleeding Physical Exam Vital Signs/Narrative: Vital Signs Temp Pulse Resp BP Pulse Ox 03/29/19 03:17 98.2 F 81 16 123/59 H 100 Inital Vital Signs reviewed: Yes General: Well nourished, Well developed, Acute Distress Head: Normocephalic, Atraumatic Eyes: Perrl, EOMI. Negative for: Pale conjunctiva, Scleral icterus ENT: Moist mucous membranes, No rhinorrhea Neck: Supple, Nontender, No lymphadenopathy, No JVD Cardiovascular: Regular rate, Regular rhythm, No murmurs Respiratory: No distress Back: Nontender, Normal Inspection Extremities: No edema, Tenderness - Joint line tenderness over the tibial plateau anteriorly. There is no swelling or asymmetry compared to the nonpainful knee. The patella is not ballotable. There is no effusion. Varus and valgus stress testing because significant pain to the point that the patient screamed. There is no laxity. There is pain out of proportion with palpation of the popliteal fossa. Unable to perform Lisa's test or modified Savanna's test. She is able to hold her knee extended to 170 degrees. She will not attempt to flex the knee. DP and PT pulses are palpable.. Negative for: Nontender Skin: Normal color, No rash, No Trauma. Negative for: Cyanosis, Diaphoresis, Jaundice Neurological: Alert, Oriented x3, Cranial nerves II-XII grossly intact, Normal Strength, Normal Sensation. Negative for: Normal Gait Psychological: Tearful Diagnostic/Tx/Re-eval Chest X-Ray - ED: Read by ED Physician, - - 4 view x-ray of the right knee was obtained and interpreted by me as negative for acute changes. Patella is unremarkable. There is postoperative changes secondary to ACL allograft. There is no evidence of fracture. There is no effusion noted. - Medical Decision Making With history of reconstructive surgery and pain with stepping need to consider injury of ACL repair. Doubt meniscus injury. Doubt crystal induced arthritis or pyogenic arthritis. She was medicated with IV Toradol and morphine. Will obtain x-ray and reassess. Patient had MRI which revealed allograft ACL and scarring or possible meniscus tear. We will have patient follow-up with orthopedics and she is unable to bear weight. She was discharged with crutches and prescribed anti-inflammatory. ED Disposition - Plan for ED Patient: Disposition: Home or Assisted Living Diagnosis: Knee pain, right Instructions: KNEE PAIN, Meniscus Injury (Possible) Prescriptions: Naproxen [Naprosyn] 500 mg PO BID #14 tab Transmission Status: Pending to [facility]30 Referrals: Kennedy Gipson MD [Primary Care Provider] - Stephen Lance DO [STAFF PHYSICIAN] - 5-7 Days Additional Instructions: Your prescription was electronically transmitted to [facility].
[2019-03-29] MEDS: Ketorolac 15 MG/ML Vial IV (03:36)
[2019-03-29] MEDS: Morphine 4 MG/ML Syringe IV (03:36)
[2019-03-29] MEDS: Ondansetron 4 MG/2 ML Vial IV (03:36)
--- NOTE | 2019-03-29 03:50 | RAD_ITS ---
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 EXAMINATION/TECHNIQUE: XR 4 views right knee COMPARISON: 01/23/2019 FINDINGS: No significant change. No fracture or dislocation. Joint spaces are preserved. Normal bony alignment. ACL reconstructive surgery with release and tunnels within the distal right femur and proximal tibia. ACL suture button in place at the femoral attachment. No joint effusion. A fabella is present. RAD/Knee 4 or More Views IMPRESSION: Stable findings. ACL repair. No complication seen. Normal bony alignment. at [id number] Reported and signed by: Jacinto Freitas MD Electronically Signed: Jacinto Freitas, at 4:28 EDT Tel , Service support ,
[2019-03-29 04:25] VITALS: BP 118/60; PULSE 78; RESP 18; O2SAT 96
== END 2019-03-29 04:26 | disposition home or self-care (01) ==
PROVIDERS: Emergency Provider Emergency Medicine; Family Provider Family Medicine; PCP Family Medicine
DX: M25.561 Pain in right knee (principal); R56.9 Unspecified convulsions; J42 Unspecified chronic bronchitis; K58.9 Irritable bowel syndrome, unspecified; K21.9 Gastro-esophageal reflux disease without esophagitis; F43.10 Post-traumatic stress disorder, unspecified; F31.9 Bipolar disorder, unspecified; F17.200 Nicotine dependence, unspecified, uncomplicated; Z79.1 Long term (current) use of non-steroidal anti-inflammatories (NSAID); Z79.899 Other long term (current) drug therapy; Z98.890 Other specified postprocedural states; Z91.040 Latex allergy status; Z88.1 Allergy status to other antibiotic agents; Z88.8 Allergy status to other drugs, medicaments and biological substances; Z88.0 Allergy status to penicillin; Z88.2 Allergy status to sulfonamides; Z87.440 Personal history of urinary (tract) infections; Z87.19 Personal history of other diseases of the digestive system; Z90.710 Acquired absence of both cervix and uterus
CPT/HCPCS: 73564; 96374; 96375; 99284; A4216; J2405

== ENCOUNTER → 2019-04-22 07:26 | Outpatient (CLI) | payer MEDICAID, SELFPAY ==
[2019-04-01 11:23] VITALS: BMI 54.3
--- NOTE | 2019-04-22 07:29 | MRI_ITS ---
STUDY: MRI RIGHT KNEE REASON FOR EXAM: Female, 23 years old. Knee pain, prior ACL reconstruction TECHNIQUE: Standardized fat and water weighted pulse sequences were obtained in all 3 orthogonal planes. COMPARISON: X-ray 03/29/2019, MRI 02/11/2019 FINDINGS: Interval development of a large bucket-handle tear of the medial meniscus displaced into the intercondylar notch producing a double PCL sign. There is diffuse, less than 50% thickness articular cartilage loss of the medial femorotibial compartment. Normal medial femoral condyle and tibial plateau. Normal medial collateral ligamentous complex (MCL). Normal distal semimembranosus, gracilis and semitendinosus tendons. Normal lateral meniscus. Normal hyaline cartilage of the lateral femorotibial compartment. Normal lateral femoral condyle and tibial plateau. Normal proximal tibiofibular articulation. Normal lateral collateral (fibular) ligament. Normal popliteus tendon. Normal biceps femoris tendon. Status post anterior cruciate ligament reconstruction without evidence of graft failure, impingement, cystic degeneration, notch synovitis, or arthrofibrosis. Normal posterior cruciate ligament (PCL). Normal congruent patellofemoral articulation. Normal hyaline cartilage of the patellofemoral compartment. Normal medial and lateral patellar retinaculum. Normal quadriceps tendon. Normal patellar tendon. Normal Hoffa's fat pad. There is a small volume joint effusion. The soft tissues are unremarkable. The otherwise visualized osseous structures are unremarkable. MRI/Lower Ext Joint Only (Routine) IMPRESSION: 1. Interval development of displaced bucket-handle tear of the medial meniscus producing double PCL sign. 2. Status post anterior cruciate ligament reconstruction which is intact without complication. 3. Small joint effusion. Electronically Signed: Alfredo Stubbs MD at 8:48 EDT Tel , Service support ,
== END ==
PROVIDERS: Family Provider Family Medicine; PCP Family Medicine; Referring Provider Orthopaedic Surgery; Visit Provider Orthopaedic Surgery
DX: M25.561 Pain in right knee (principal)
CPT/HCPCS: 73721

== ENCOUNTER 2019-04-23 10:45 | Day surgery (SDC) | payer MEDICAID, SELFPAY ==
[2019-04-22 12:59] VITALS: BMI 54.3
[2019-04-23] VITALS (13 sets, daily range): BP systolic 92–107; BP diastolic 54–76; PULSE 56–83; RESP 16; TEMP 36.2–37.2; O2SAT 97–100; BMI 23.1
--- NOTE | 2019-04-23 07:21 | HP.PCM_ITS ---
History and Physical Date of Admission: 04/23/19 Intake Vital Signs 04/22/19 Body Mass Index (BMI) 54.3 Intake Visit Reasons: RIGHT KNEE Chief Complaint: establish care Allergies adhesive tape Allergy (Severe, Verified 01/30/19 13:43) Rash latex Allergy (Severe, Verified 03/29/19 03:22) Rash benzonatate [From Tessalon Perles] Allergy (Verified 03/29/19 03:22) Rash cephalexin [From Keflex] Allergy (Verified 03/29/19 03:22) Hives clindamycin Allergy (Verified 03/29/19 03:22) Anaphylaxis dicyclomine [From Bentyl] Allergy (Verified 03/29/19 03:22) Itching meloxicam [From Mobic] Allergy (Verified 03/29/19 03:22) Chest tightness metronidazole [From Flagyl] Allergy (Verified 03/29/19 03:22) Itching nifedipine [From Procardia] Allergy (Verified 03/29/19 03:22) Angioedema oseltamivir [From Tamiflu] Allergy (Verified 03/29/19 03:22) Hives Penicillins Allergy (Verified 03/29/19 03:22) Anaphylaxis prednisone Allergy (Verified 03/29/19 03:22) Rash progesterone Allergy (Verified 03/29/19 03:22) Hives Sulfa (Sulfonamide Antibiotics) Allergy (Verified 03/29/19 03:22) Hives terbutaline [From Brethine] Allergy (Verified 03/29/19 03:22) Angioedema ondansetron [From Zofran (as hydrochloride)] Adverse Reaction (Verified 03/29/19 03:22) Other [facility] Medical History (Updated 03/30/19 @ 00:00 by Janis Barrera) Tunnel vision (Chronic) Stomach ulcer (Chronic) Preeclampsia (Acute) Seizures (Chronic) Deafness in left ear (Chronic) Migraines (Chronic) IBS (irritable bowel syndrome) (Chronic) History of broken finger (Acute) Frequent UTI (Acute) GERD (gastroesophageal reflux disease) (Chronic) Acute back pain with sciatica (Acute) Chronic bronchitis (Chronic) Asthma (Chronic) History of wisdom tooth extraction (Acute) Surgical History (Updated 12/26/18 @ 15:22 by Stef William MD) History of colonoscopy (Acute) History of repair of anterior cruciate ligament of left knee (Acute) History of tubal ligation (Acute) Family History (Updated 11/06/17 @ 11:09 by Avani Hernández) Mother Alcoholism Asthma Cancer Anxiety and depression Seizures Father Anxiety and depression Alcoholism Seizures Diabetes Myocardial infarction, Onset Age: 39 Grandmother Cancer uterine Thyroid disorder COPD (chronic obstructive pulmonary disease) Hypertension Hyperlipemia Asthma Sister Cystic fibrosis Asthma Brother Cystic fibrosis Mental retardation Aunt Breast cancer Aunt Cancer ovarian Unknown Cancer lung Social History (Updated 04/22/19 @ 13:29 by Stephen Lance DO) Smoking Status: Current every day smoker Tobacco: How many years used: 12 alcohol intake: never substance use type: former substance user what type of physical activity do you participate in: walking frequency: daily HPI RIGHT KNEE: Details: Parts of this documentation were recorded by a scribe, this documentation accurately reflects the service provided and the decisions made by me, Stephen Lance DO 04/22/19 1721. FERNANDO KINCAID is a 23 year old F here today for F/U on right knee pain after having MRI completed. most recent injury is 03/28/19. Patient continue to have painful mechanical symptoms. Denies numbness, tingling or other associated symptoms. Patient was called earlier and told to start using cructches and be NWB. ROS Const Reports system reviewed and no additional complaints, except as docu Eyes Reports system reviewed and no additional complaints, except as docu ENT Reports system reviewed and no additional complaints, except as docu Card Reports system reviewed and no additional complaints, except as docu Resp Reports system reviewed and no additional complaints, except as docu GI Reports system reviewed and no additional complaints, except as docu Musc Reports system reviewed and no additional complaints, except as docu, Reports as per HPI Skin/Breast Reports system reviewed and no additional complaints, except as docu Neuro Yes system reviewed and no additional complaints, except as docu Psych Reports system reviewed and no additional complaints, except as docu Endo Reports system reviewed and no additional complaints, except as docu Benigno/Lymph Reports system reviewed and no additional complaints, except as docu Aller/Immun Reports system reviewed and no additional complaints, except as docu Ortho Exam Right Knee Date of injury: 03/28/19 Skin/Wound: No erythema, Yes ecchymosis (faint anterior ecchymosis), No swelling Homans Sign: No Knee ROM: Yes ROM-Extension -20 to 0, No ROM-Flexion 0-140 Examination: Yes Med jt line tenderness, No Lat jt line tenderness, Yes TTP Tibial tubercle Stability: NML: Anterior Drawer, NML: Posterior Drawer, NML: Valgus 30, NML: Varus 30 (pain) KNEE: no joint effusion intact quad and patellar tendon TTP over medial knee severe pain that is out of proportion with attempted ROM and antempted stress testing unable to feel click with fauzia but exam stopped short as patient in intolerable pain pain with varus stress medially no instability to collaterals or cruciates. Right Knee Date of injury: 03/28/19 Skin/Wound: No erythema, Yes ecchymosis (faint anterior ecchymosis), No swelling Homans Sign: No Knee ROM: Yes ROM-Extension -20 to 0, No ROM-Flexion 0-140 Examination: Yes Med jt line tenderness, No Lat jt line tenderness, Yes TTP Tibial tubercle Stability: NML: Anterior Drawer, NML: Posterior Drawer, NML: Valgus 30, NML: Varus 30 (pain) KNEE: no joint effusion intact quad and patellar tendon TTP over medial knee severe pain that is out of proportion with attempted ROM and antempted stress testing unable to feel click with fauzia but exam stopped short as patient in intolerable pain pain with varus stress medially no instability to collaterals or cruciates. Supplemental Info 04/22/2019 MRI right knee: Status post ACL reconstruction with intact graft displaced bucket-handle tear medial meniscus grade 3 cartilage wear medial compartment Assessment & Plan Problems 1. Bucket-handle tear of medial meniscus of right knee as current injury, subsequent encounter S83.211D Plan Personally reviewed patients MRI of the right knee. Patient educated that she has a bucket-handle tear of the medial meniscus. Patient educated that this tear may be repairable. If this is repairable then she will be off of her knee for 6 weeks and she will have restrictions. Patient educated that her ACL graft is intact. Reviewed the pre-operative plans with the patient. Risks and benefits of the procedure were fully explained, including but not limited to infection, neurovascular injury, continued pain, arthritis, stiffness, need for further surgery, re-injury, DVT, PE, general risks of anesthesia, and loss of limb or life. The patient understands all the risks and does wish to proceed with written consent. Patient wishes to proceed with right knee arthroscopic medial meniscus repair vs partial medial meniscectomy. Patient educated that she will be off work for anywhere form 1 month to 2.5 months. Follow up 2 weeks post op or sooner if pain, swelling, numbness or associated symptoms, or concerns develop. All questions answered. Patient in agreement of plan. Coding Level of Care Code Off vis,est,level 3 Diagnoses Bucket-handle tear of medial meniscus of right knee as current injury, subsequent encounter S83.211D ??Encounter type: subsequent encounter ??Laterality: right ??Tear current or old: current I have re-examined the patient. There are no clinical changes since date of exam
[2019-04-23] MEDS: Vancomycin IV 1,000 MG/200 ML BAG 200 MG IV (11:37)
[2019-04-23] MEDS: Lactated Ringers 1,000 ML 100 ML IV (11:37)
[2019-04-23] MEDS: Bupivacaine 0.5% PF 10 ML VIAL (15:20)
--- NOTE | 2019-04-23 15:31 | OP.PCM_ITS ---
Report of Operation Date of Procedure: 04/23/19 Description of Surgical Findings:: Preop diagnosis: Right knee bucket-handle medial meniscal tear Postoperative diagnosis: Same+ cyclops lesion ACL grade 3 cartilage defect medial patellar facet grade II chondromalacia medial compartment Implants: 360 FasT-Fix all inside meniscal repair device x2 [employer] Procedure: Right knee medial meniscus repair ACL debridement Anesthesia: General Estimated blood loss: 5 mL Tourniquet time: 22 minutes minutes 300 mmHg Complications: none Indication for procedure: This is a 23-year-old female patient who had a prior ACL reconstruction many years ago with prior partial medial meniscectomy who had an injury recently with significant pain and inability to ambulate MRI demonstrated a bucket-handle medial meniscus tear, the patient did wish to proceed with an elective arthroscopic surgery to attempt to alleviate the symptoms. We discussed meniscectomy versus repair and due to her age if repair was an option she did wish to proceed with this understanding the need for be toe-touch weightbearing for 6 weeks postop and not bending her knee past 90 degrees during this time inspected postoperative course following this risk benefits and alternatives of the procedure were reviewed including risk of bleeding infection nerve artery tissue damage need for further surgery continued pain and expected postoperative course. Procedure: The patient was met in the preoperative holding area. The operative extremity was identified by both patient and physician and family and marked. Patient was brought back to the operating room on a wheeled cart and transferred to the operating table in the supine position. Anesthesia was started. A well- padded tourniquet was placed on the operative extremity. A lower extremity leg krueger was secured to the operative extremity. The contralateral extremity was well-padded and the end of the bed was flexed to 90 degrees. The patient was prepped and draped in the usual sterile fashion. A timeout was called to ensure the proper patient, procedure, and extremity were being contemplated. 0.5% Marcaine with epinephrine was injected into the planned incisional areas under the skin only. An Esmarch was used to exsanguinate the extremity and the tourniquet was inflated. An 11 blade scalpel was used to make a stab incision in the anterior lateral portal. The arthroscope was inserted into the intercondylar notch and inflow and outflow tubes were attached. Arthroscopic visualization began. The medial compartment was entered. An 18-gauge spinal needle was used to establish the placement for anterior medial portal. An 11 blade scalpel was used to make a stab incision. Blunt probe was inserted followed by a meniscal probe. There is noted to be flipped medial meniscus tear that was attached both anteriorly and posteriorly with bleeding tissue in the periphery and it was felt it could be repaired the ACL was found to have a overgrowth of ligamentous tissue developing cyclops lesion. The lateral compartment was entered free of meniscal or cartilage pathology The arthroscope was switched from the procedure to allow accurate 360 FasT-Fix anchor placement 2 of these devices were used after the meniscal bed was rasped and stabbed with a 18-gauge spinal needle vertical mattresses provided excellent repair no further anchors were required a cyclops lesion of the ACL was debrided wound was thoroughly irrigated. The medial and lateral gutters were inspected and were free of loose bodies. The patellofemoral joint was inspected and had a grade 3 cartilage defect of the medial patellar facet however this did not appear new was no loose cartilage flaps. There was good patellar tracking. The knee was thoroughly irrigated and drained. An intra-articular injection with 5 cc 0.5% Marcaine plain 4 mg of morphine was injected intra-articularly. The arthroscope was removed the portals were closed with 3-0 nylon arthroscopic stitches. Followed by Xeroform 4 x 4's ABDs web roll and an Chinmay wrap. The tourniquet was let down and the drapes were removed. All counts were correct. The patient was brought back to the PACU in stable condition.
--- NOTE | 2019-04-23 15:39 | DCINST_ITS ---
Discharge Diet: No Restrictions Call your doctor if you observe: Fever of 101 or Higher, Shortness of breath, Chest pain Additional Instructions: Keep dressing on clean and dry may remove in 48 hours and begin showering at that time ,do not submerge underwater in tub or pool until stitches come out in office. Follow-up 2 weeks in office do not bend the knee greater than 90 degrees toe-touch weightbearing only to operative extremity. Use assistive device, Allergies/Adverse Reactions: Allergies adhesive tape Allergy (Severe, Verified 04/22/19 16:10) Rash latex Allergy (Severe, Verified 04/22/19 16:10) Rash benzonatate [From Tessalon Perles] Allergy (Verified 04/22/19 16:10) Rash cephalexin [From Keflex] Allergy (Verified 04/22/19 16:10) Hives clindamycin Allergy (Verified 04/22/19 16:10) Anaphylaxis dicyclomine [From Bentyl] Allergy (Verified 04/22/19 16:10) Itching meloxicam [From Mobic] Allergy (Verified 04/22/19 16:10) Chest tightness metronidazole [From Flagyl] Allergy (Verified 04/22/19 16:10) Itching nifedipine [From Procardia] Allergy (Verified 04/22/19 16:10) Angioedema oseltamivir [From Tamiflu] Allergy (Verified 04/22/19 16:10) Hives Penicillins Allergy (Verified 04/22/19 16:10) Anaphylaxis prednisone Allergy (Verified 04/22/19 16:10) Rash progesterone Allergy (Verified 04/22/19 16:10) Hives -cream form only Sulfa (Sulfonamide Antibiotics) Allergy (Verified 04/22/19 16:10) Hives terbutaline [From Brethine] Allergy (Verified 04/22/19 16:10) Angioedema ondansetron [From Zofran (as hydrochloride)] Adverse Reaction (Verified 04/22/19 16:10) Other PT STATES IT MAKES ME CONSTIPATED Medications to take at Discharge Albuterol Inhaler [Ventolin Hfa (SP)] 2 puff INHALATION DAILY PRN PRN 02/05/17 No122/Iron/Folic Acid [ Multi Tablet] 1 ea PO DAILY 04/29/17 Acetaminophen [Tylenol Extra Strength] 1,000 mg PO Q8H PRN PRN 05/10/17 fluticasone propionate 110 mcg/actuation HFA aerosol inhaler 2 puff INHALATION BID #12 g 12/12/17 cycloBENZAPRine HCl [Flexeril] 10 mg PO TID PRN PRN 02/17/18 Gabapentin [Neurontin] 300 mg PO QHS 05/07/18 Omeprazole 40 mg PO QHS 06/22/18 Polyethylene Glycol 3350 [Miralax] 17 gm PO PRN PRN 06/22/18 Fluticasone 0.05% [Flonase Nasal [place]] 1 spray NASAL DAILY #1 bottle 10/16/18 [place]erton Carbonate 300 mg PO DAILY 10/16/18 Docusate Sodium [Colace] 100 mg PO BID 12/10/18 prochlorperazine maleate 10 mg tablet 10 mg PO BID 01/30/19 sumatriptan 25 mg tablet 100 mg PO .X1 PRN PRN tab 01/30/19 Naproxen [Naprosyn] 500 mg PO BID PRN 04/22/19 Oxycodone HCl/Acetaminophen [Percocet 5/325] 1 - 2 tablet PO Q4H PRN PRN #40 tablet 04/23/19 The following prescriptions were given: Oxycodone HCl/Acetaminophen [Percocet 5/325] 1 - 2 tablet PO Q4H PRN PRN #40 tablet PRN Reason: Pain Transmission Status: Sent to DrAvailable #30 Primary Care Physician: Kennedy Gipson MD [Primary Care Provider] - Test Results: Test results from this visit will be discussed in further detail at your follow- up appointment, if applicable. Please Follow Up With: Stephen Lance DO - 2 weeks
--- NOTE | 2019-04-23 17:49 | SUR.PHASEII ---
Dr Lance and DONOVAN Pérez contacted regarding pt stating that she was supposed to have a brace. per both confirmed that is not to get a brace.
== END 2019-04-23 17:42 | disposition home or self-care (01) ==
LOC: SDC 10:46 → AC 10:47
PROVIDERS: Family Provider Family Medicine; PCP Family Medicine; Referring Provider Orthopaedic Surgery; Visit Provider Orthopaedic Surgery
PROC: (CPT 29870; principal; 2019-04-23 12:25)
DX: S83.211A Bucket-handle tear of medial meniscus, current injury, right knee, initial encounter (principal); X58.XXXA Exposure to other specified factors, initial encounter; Y93.9 Activity, unspecified; Y92.9 Unspecified place or not applicable; J45.909 Unspecified asthma, uncomplicated; K21.9 Gastro-esophageal reflux disease without esophagitis; Z79.899 Other long term (current) drug therapy; F17.200 Nicotine dependence, unspecified, uncomplicated; M25.861 Other specified joint disorders, right knee; M22.41 Chondromalacia patellae, right knee
CPT/HCPCS: 29882; J7120; J2405

== ENCOUNTER → 2019-04-26 15:40 | Outpatient (CLI) | payer MEDICAID, SELFPAY ==
[2019-04-26 15:12] VITALS: BMI 23.1
--- NOTE | 2019-04-26 15:43 | VDLE_ITS ---
Reason For Study: Post op right calf pain RIGHT GSV is normal. CFV is compressible, spontaneous, phasic, competent and demonstrates normal augmentation. FV is compressible, spontaneous, phasic, competent and demonstrates normal augmentation. PopV is visualized with color and doppler only due to pain s/p knee surgery. Appears normal with sponntaneous, phasic, competent, and demonstrates normal augmentation. T/P Trunk is compressible. PTV is compressible. RT PerV is compressible. Procedure Exam performed in department. A preliminary report was called and/or faxed to [facility]. Interpretation Summary There is no evidence of right lower extremity deep vein thrombosis. Right great saphenous vein appears patent and compressible segmentally. Right popliteal not compressed secondary to recent surgery Ordering Physician: Jacinto Cardenas Referring Physician: Asa Gipson Performed By: Nathalia Luis RVT
== END ==
PROVIDERS: Family Provider Family Medicine; PCP Family Medicine; Referring Provider Physician Assistant; Visit Provider Physician Assistant
DX: Z47.89 Encounter for other orthopedic aftercare (principal); M79.661 Pain in right lower leg
CPT/HCPCS: 93971

== ENCOUNTER 2019-07-01 14:30 | Outpatient (RCR) | payer MEDICAID, SELFPAY ==
[2019-05-08 15:02] VITALS: BMI 23.1
[2019-06-05 14:54] VITALS: BMI 23.1
--- NOTE | 2019-06-25 07:22 | HP.PTEVAL_ITS ---
Patient's Visit Information FERNANDO KINCAID is a 24 year old F referred to Physical Therapy by Stephen Lance DO with a diagnosis of R medial meniscus repair and ACL debridement. Date of Evaluation: 06/07/19 Physical Therapist: Tom Smalls DPT - Visit Plan Frequency: 2x /Week Duration: 6 Weeks Plan: Start with ROM, bike, initiation of wt. shifting, gait progression. modalities for pain and tolerance to exercises. - Subjective Findings: Pt. is here today for her initial evaluation with diagnosis of R medial meniscus repiar and ACl debridment. DOS: 04/23/19. Pt. arrives today on FWW. Pt. reports being being NWBing on her R leg since surgery. She had a previous ACL surgery 1-2 year prior. Pt. reports havign 5/10 pain in her knee constantly and upto 8/10 pain with any movement. She denies fever or chills, and no calf pain. Pt. is able to sleep. She is hopeful to return back to work sooner than lateral. 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 She denies N/T. Pt. has not been doing any exercises seoncdary to pain. She is wear a neoprene knee brace as well. Pt. is hopeful to reduce her symptoms in order to get back to all recreational and work activities without limitations. - Pain R knee Pain Intensity (Out of 10): 5 Pain Intensity Range: 4, 8 - Objective POSTURE: Pt. has difficulty putting her RLE down, but was able to with use of FWW to off load. Pt. very hesitant to put RLE down, TTBWing mostly. PALPATION: Pt. has some mild edema, but minimal. Pt. has normal healing incision without signs of infection. Pt. tender along meidal joint line and anterior knee. NEURO: normal throughout. ROM: R knee 0-18-90deg. Pt. limited seondary to pain with all ROM. Pt. very hesitent to progress further. MMT: PT. is able to complete SLR, with marked lag. 4/5 hip abd and hip ext. GAIT: Pt. ambulates with FWW with heavy use and minimal WBing through her RLE. SLight increase with VCing, but not consistent. Pt. instructed to start to work on increasing WBing on her RLE - Goals Goal 1:: Pt. to be I with HEP. Goal Time Frame: 4-6 Weeks Goal 2:: Pt. to have increased R knee ROM to 0-0-120deg without increase in symptoms. Goal Time Frame: 4-6 Weeks Goal 3:: Pt. to complete SLR x20 without extensor lag. Goal Time Frame: 4-6 Weeks Goal 4:: Pt. to ambulate with LRD vs no AD with normal gait pattern. Goal Time Frame: 4-6 Weeks Goal 5:: Pt. to sleep throughout the night without increase in symptoms. Goal Time Frame: 4-6 Weeks Goal 6:: Pt. to reusme all work activities withotu increase in symptoms. Goal Time Frame: 4-6 Weeks - Rehabilitation Potential Physical Therapy Diagnosis: Pt. has signs and symptoms consistent with R medial meniscus repair and ACL debridement with subsequent hypombility and weakness. Pt. would benefit from PT to increase ROM, progress strength and progress back to all functional mobility, Rehabilitation Potential: Good - Anticipated Interventions Patient/Client Instruction: Educate patient on: Condition, Plan of Care, Risk Factors, Benefits of Fitness Program For the Purpose of:: To improve decision making, To facilitate caregiver knowledge, To improve self management, To prevent re-injury, To improve ability to perform tasks related to life management, To improve tolerance to ADL's Therapeutic Exercise to Include: Strength training, Power training, Endurance training, Balance training, Postural training, Flexibilty training, Gait and locomotor training, Passive ROM, Active ROM, Dynamic Lumbar Stabilization For the Purpose of:: To decrease pain, To decrease swelling/inflammation, To improve nutrient delivery to tissue, To increase oxygenation perfusion, To improve muscle performance and motor function, To improve ability to perform ADL's, To improve gait and locomotor functions, To improve health of tissue, To decrease soft tissue restriction, To increase flexibility/ROM IF ES: Yes Cryotherapy (ice pack, ice massage): Yes Vasopneumatic device: Yes For the Purpose of:: To decrease pain, To decrease swelling/inflammation, To increase ROM, To improve nutrient delivery to tissue, To increase oxygenation perfusion Thank you for the opportunity to evaluate your patient. For Medicare and Medicare HMO plans, please review the plan of care and approve it. It will need to be FAXED BACK to us at [phone] for Medicare purposes. For Medicare only, by signing this I certify the plan of care. Please let me know if there are questions or concerns regarding this plan of c are. Physician Signature: Date:
--- NOTE | 2019-11-22 08:44 | HP.PT.NRP ---
FERNANDO KINCAID was seen in my office for initial evaluation on 06/07/19. The following Plan of Care was established for this patient: Initial Frequency: 2x /Week Initial Duration: 6 Weeks Patient/Client Instruction: Educate patient on: Condition, Plan of Care, Risk Factors, Benefits of Fitness Program For the Purpose of:: To improve decision making, To facilitate caregiver knowledge, To improve self management, To prevent re-injury, To improve ability to perform tasks related to life management, To improve tolerance to ADL's Therapeutic Exercise to Include: Strength training, Power training, Endurance training, Balance training, Postural training, Flexibilty training, Gait and locomotor training, Passive ROM, Active ROM, Dynamic Lumbar Stabilization For the Purpose of:: To decrease pain, To decrease swelling/inflammation, To improve nutrient delivery to tissue, To increase oxygenation perfusion, To improve muscle performance and motor function, To improve ability to perform ADL's, To improve gait and locomotor functions, To improve health of tissue, To decrease soft tissue restriction, To increase flexibility/ROM IF ES: Yes Cryotherapy (ice pack, ice massage): Yes Vasopneumatic device: Yes For the Purpose of:: To decrease pain, To decrease swelling/inflammation, To increase ROM, To improve nutrient delivery to tissue, To increase oxygenation perfusion This patient was last seen in our office 07/01/19. Pertinent comments regarding their Physical therapy will appear below: Pt. was seen in PT post knee surgery. Pt. came to her eval and 1 follow up appointment. Pt. has not been seen since and will be DC from PT at this point in time. At this point I will be discontinuing this patient from physical therapy. I would be happy to see this patient again in the future if found appropriate by the physician. Thank you! Tom Smalls, EMMAT
== END 2019-07-01 19:00 | disposition home or self-care (01) ==
LOC: PT 14:30
PROVIDERS: Family Provider Family Medicine; PCP Family Medicine; Referring Provider Orthopaedic Surgery; Visit Provider Orthopaedic Surgery
DX: Z98.890 Other specified postprocedural states (principal)
CPT/HCPCS: 97110; 97161

== ENCOUNTER 2019-09-02 23:42 | Emergency (ER) | payer MEDICAID, SELFPAY ==
[2019-07-08 15:41] VITALS: BMI 23.1
[2019-09-02 23:43] VITALS: BP 131/80; PULSE 90; RESP 18; TEMP 36.8; O2SAT 100; BMI 22.9
[2019-09-02 23:53] VITALS: BP 118/73; PULSE 89; RESP 16; O2SAT 100
--- NOTE | 2019-09-03 00:27 | CT_ITS ---
STUDY: CT ABDOMEN AND PELVIS WITH CONTRAST REASON FOR EXAM: Female, 24 years old. LOWER ABD PAIN THAT RADIATES TO RIGHT SIDE WITH N/V, HX HYSTERECTOMY, SZ, COPD RADIATION DOSAGE (If Supplied By Facility): CTDIvol = ( 8.43 ) mGy, DLP = ( 337.62 ) mGycm TECHNIQUE: Transaxial images were obtained from the dome of the diaphragm to the symphysis pubis without oral contrast. Oral and amp; IV Gastrografin and amp; 100mL Isovue-370 was administered. Sagittal and coronal images were reconstructed. Individualized dose optimization techniques were used for this CT. COMPARISON: None. FINDINGS: The visualized lung bases are unremarkable. The visualized portions of the heart are within normal limits. Mild periportal edema versus mild intrahepatic biliary distention. Normal gallbladder and extrahepatic biliary system. Normal spleen. Normal pancreas. Normal bilateral adrenal glands. Normal right kidney. Normal left kidney. Normal visualized stomach. Normal small intestine. Normal colon. The appendix is visualized and appears normal. Normal abdominal aorta. Normal inferior vena cava. Normal retroperitoneum. Thickening of urinary bladder wall which may indicate cystitis. Nonvisualized uterus suggestive of prior hysterectomy. Normal abdominal wall. Normal osseous structures. CT/Abdomen/Pelvis WITH Contrast IMPRESSION: Possible cystitis, clinical correlation recommended. No bowel obstruction or focal inflammatory process of the gastrointestinal tract. Minimal periportal edema versus mild central intrahepatic bladder distention. Remainder of abdominal viscera are unremarkable. Electronically Signed: Hetal Astorga MD at 3:06 EST , Service support ,
--- NOTE | 2019-09-03 00:29 | ED.DCSUM_ITS ---
History of Present Illness Chief Complaint: Abd Pain Narrative: Patient is a 24-year-old female who presents with abdominal pain. Her abdominal pain initially began 3 to 4 days ago. It was initially just to the left of the umbilicus. Since that time her pain has worsened and become more focal to the right lower quadrant. She also reports 3 to 4 days of nausea and vomiting, anorexia, decreased oral intake. No diarrhea. She had a fever today of 101.4. She is concerned she may have appendicitis. She has had a hysterectomy. She denies urinary symptoms such as dysuria, frequency, urgency. She otherwise denies recent illness such as cough rhinorrhea sore throat difficulty breathing. Past Medical History - Allergies and Home Meds Allergies/Adverse Reactions: Allergies adhesive tape Allergy (Severe, Verified 09/02/19 23:43) Rash latex Allergy (Severe, Verified 09/02/19 23:43) Rash benzonatate [From Tessalon Perles] Allergy (Verified 09/02/19 23:43) Rash cephalexin [From Keflex] Allergy (Verified 09/02/19 23:43) Hives clindamycin Allergy (Verified 09/02/19 23:43) Anaphylaxis dicyclomine [From Bentyl] Allergy (Verified 09/02/19 23:43) Itching meloxicam [From Mobic] Allergy (Verified 09/02/19 23:43) Chest tightness metronidazole [From Flagyl] Allergy (Verified 09/02/19 23:43) Itching nifedipine [From Procardia] Allergy (Verified 09/02/19 23:43) Angioedema oseltamivir [From Tamiflu] Allergy (Verified 09/02/19 23:43) Hives Penicillins Allergy (Verified 09/02/19 23:43) Anaphylaxis prednisone Allergy (Verified 09/02/19 23:43) Rash progesterone Allergy (Verified 09/02/19 23:43) Hives -cream form only Sulfa (Sulfonamide Antibiotics) Allergy (Verified 09/02/19 23:43) Hives terbutaline [From Brethine] Allergy (Verified 09/02/19 23:43) Angioedema ondansetron [From Zofran (as hydrochloride)] Adverse Reaction (Verified 09/02/19 23:43) Other PT STATES IT MAKES ME CONSTIPATED Primary Care Physician: Keiko Mckay MD [Primary Care Provider] - Past Medical History: - - Depression, migraines Surgical History: hysterectomy Smoking Status: Current every day smoker Review of Systems All systems negative except as indicated General: Denies: Fever Cardiovascular: Denies: Chest pain Respiratory: Denies: Dyspnea Gastrointestinal: Reports: Abdominal pain, Nausea, Vomiting. Denies: Diarrhea Genitourinary: Denies: Dysuria, Hematuria, Frequency Skin: Denies: Rash Neurological: Denies: Headache Psych: Denies: Depression Hematologic: Denies: Easy bruising Allergy: Denies: Uticaria Physical Exam Vital Signs/Narrative: Vital Signs Temp Pulse Resp BP Pulse Ox 09/02/19 23:53 89 16 118/73 100 09/02/19 23:43 98.2 F 90 18 131/80 H 100 Inital Vital Signs reviewed: Yes General: Well nourished, Well developed Head: Normocephalic Eyes: EOMI ENT: Moist mucous membranes Neck: Supple Cardiovascular: Regular rate, Regular rhythm Respiratory: No distress Abdomen: Soft, Tender - Patient has diffuse abdominal tenderness but this is gr eatest in the right lower quadrant she does not have guarding or rebound Skin: Normal color Neurological: Alert Psychological: Normal affect Diagnostic/Tx/Re-eval Impressions Abdomen/Pelvis CT 09/03/19 00:27 IMPRESSION: Possible cystitis, clinical correlation recommended. No bowel obstruction or focal inflammatory process of the gastrointestinal tract. Minimal periportal edema versus mild central intrahepatic bladder distention. Remainder of abdominal viscera are unremarkable. Electronically Signed: Hetal Astorga MD at 3:06 EST , Service support , 09/03/19 00:27 Abdomen/Pelvis WITH Contrast [CT] Stat Laboratory Results 09/03/19 09/03/19 09/03/19 00:35 00:35 00:50 WBC 7.2 RBC 3.96 L Hgb 11.7 L Hct 34.7 L MCV 87.6 MCH 29.5 MCHC 33.7 RDW Std Deviation 38.9 RDW Coeff of Jo 11.9 Plt Count 182 MPV 11.0 Immature Gran % (Auto) 0.400 Neut % (Auto) 48.5 Lymph % (Auto) 35.7 [place] % (Auto) 9.3 Eos % (Auto) 5.1 H Baso % (Auto) 1.0 Absolute Neuts (auto) 3.5 Absolute Lymphs (auto) 2.57 Nucleated RBC % 0 Sodium 140 Potassium 3.5 Chloride 110 H Carbon Dioxide 29.0 Anion Gap 1 L BUN 14 Creatinine 0.81 Estim Creat Clear Calc 95.54 Est GFR (MDRD) Af Amer 111 Est GFR (MDRD) Non-Af 91 BUN/Creatinine Ratio 17.3 Glucose 88 Calcium 8.6 Total Bilirubin 0.20 AST 13 L ALT 16 Alkaline Phosphatase 83 Total Protein 6.4 Albumin 3.3 Globulin 3.1 Albumin/Globulin Ratio 1.1 Lipase 78 Urine Color Yellow Urine Clarity Clear Urine pH 6.0 Ur Specific [place] 1.020 Urine Protein Negative Urine Glucose (UA) Normal Urine Ketones 5 H Urine Occult Blood Negative Urine Nitrite Negative Urine Bilirubin Negative Urine Urobilinogen 1 H Ur Leukocyte Esterase Negative Urine RBC 0 SEEN Urine WBC 0 SEEN Ur Squamous Epith Cells 5-10 SEEN Urine Bacteria 0 SEEN Urine Mucus 0 SEEN - Medical Decision Making Patient was initially given IV fluids, Toradol, Zofran. She had little change in her symptoms and was then given morphine and Phenergan. Laboratory studies and imaging as above. Her labs are unremarkable, urinalysis is not consistent with cystitis. CT of the abdomen showed questionable intrahepatic biliary dilatation however patient has no evidence of biliary obstruction on laboratory studies. Given unremarkable work-up here I do feel she can be safely discharged to follow-up as an outpatient. However she does understand return for new or worsening symptoms and was instructed on signs and symptoms to monitor for. ED Disposition - Plan for ED Patient: Disposition: Home or Assisted Living Diagnosis: Abdominal pain Instructions: ABDOMINAL PAIN, Unknown Cause, (Female) Referrals: Keiko Mckay MD [Primary Care Provider] -
[2019-09-03] MEDS: Ondansetron 4 MG/2 ML Vial IV (00:41)
[2019-09-03] MEDS: Ketorolac 30 MG/ML Syringe IV (00:41)
[2019-09-03] MEDS: 0.9% Normal Saline 1,000 ML 1000 ML IV (00:41)
[2019-09-03 00:45] LABS: Absolute Lymphocyte Count 2.57 X10^3/uL (0.83-4.51); Absolute Neutrophil Count 3.5 X10^3/uL (2.0-7.7); Basophil# 0.07 X10^3/uL; Eosinophil# 0.37 X10^3/uL; Eosinophils% 5.1 % (0-5); Hematocrit 34.7 % (37-47); Hemoglobin 11.7 g/dL (12.0-15.0); Lymphocyte # 2.57 X10^3/ul (4.0); Lymphocyte % 35.7 % (19-41); Mean Corp Hgb Conc 33.7 g/dL (32-36); Mean Corpuscular Hgb 29.5 pg (27.0-32.0); Mean Corpuscular Volume 87.6 fL (81-99); Monocyte# 0.67 X10^3/uL; Monocyte% 9.3 % (0-10); NRBC Flagged by Analyzer 0 % (0-5); Neutrophil # 3.49 X10^3/uL (2.7-7.7); Neutrophil % 48.5 % (47-70); Platelet Count 182 K/mm3 (150-450); RBC Distribution Width CV 11.9 % (11.6-14.6); RBC Distribution Width SD 38.9 fl (35.1-43.9); Red Blood Count 3.96 M/mm3 (4.2-5.4); White Blood Count 7.2 K/mm3 (4.4-11.0)
[2019-09-03 00:56] LABS: Bacteria 0 SEEN /hpf (None Seen); Mucous, Urine 0 SEEN /hpf (<or=2+); Red Blood Cells-Urine 0 SEEN /hpf (0-5); White Blood Cells 0 SEEN /hpf (0-5)
[2019-09-03 01:00] LABS: Color, Urine Yellow (Yellow); Glucose, Dipstick Normal (Normal); Ketone-Dipstick 5 mg/dl (Negative); Leukocyte Esterase-Dipstick Negative /ul (Negative); Nitrite-Dipstick Negative (Negative); Occult Blood-Urine Negative /ul (Negative); Protein-Dipstick Negative (Negative); Urine Bilirubin Dipstick Negative (Negative); Urine Clarity Clear (Clear); Urine Urobilinogen 1 mg/dl (Normal)
[2019-09-03 01:03] LABS: ALB/GLOB Ratio 1.1 RATIO (0.9-2.4); AST(SGOT) 13 U/L (15-37); Alanine Aminotransfer ALT/SGPT 16 U/L (13-56); Albumin, Serum 3.3 g/dL (3.2-5.0); Alkaline Phosphatase 83 U/L (45-117); Anion Gap 1 (5-15); BUN 14 mg/dL (7-18); BUN/Creat Ratio 17.3 RATIO (10-20); Calcium,Total 8.6 mg/dL (8.5-10.1); Chloride 110 mmol/L (98-107); Creatinine, Serum 0.81 mg/dL (0.55-1.02); EST Glomerular Filtration Rate 91 mL/min (>60); Est Glom Filt Rate - Afr Amer 111 mL/min (>60); Estimated Creatinine Clearance 95.54 ml/min; Globulin 3.1 g/dL (2.2-4.2); Glucose 88 mg/dL (74-106); Lipase 78 U/L (73-393); Potassium 3.5 mmol/L (3.5-5.1); Protein, Total 6.4 g/dL (6.4-8.2); Sodium Level 140 mmol/L (136-145)
[2019-09-03 01:05] LABS: Squamous Epithelial Cells - UA 5-10 SEEN /hpf (5-10)
[2019-09-03] MEDS: proMETHazine 25 MG/ML Syringe 12.5 MG IV (01:15)
[2019-09-03] MEDS: Morphine 4 MG/ML Syringe IV (01:15)
[2019-09-03 01:43] VITALS: BP 121/76; PULSE 89; RESP 16; O2SAT 97
== END 2019-09-03 03:42 | disposition home or self-care (01) ==
PROVIDERS: Emergency Provider Emergency Medicine; PCP Internal Medicine
DX: R10.813 Right lower quadrant abdominal tenderness (principal); R11.2 Nausea with vomiting, unspecified; R50.9 Fever, unspecified; F32.9 Major depressive disorder, single episode, unspecified; Z79.899 Other long term (current) drug therapy; Z79.51 Long term (current) use of inhaled steroids; F17.200 Nicotine dependence, unspecified, uncomplicated
CPT/HCPCS: 74177; 80053; 81001; 83690; 85025; 96361; 96374; 96375; 99283; J7030; Q9967; A4216; J2405

== ENCOUNTER 2019-09-30 21:25 | Emergency (ER) | payer MEDICAID, SELFPAY ==
[2019-09-30 21:26] VITALS: BP 109/59; PULSE 102; RESP 17; TEMP 37.1; O2SAT 100; BMI 23.3
[2019-09-30 21:29] VITALS: BP 109/59; PULSE 102; RESP 17; TEMP 37.1; O2SAT 100
--- NOTE | 2019-09-30 22:08 | ED.DCSUM_ITS ---
- ER Visit Summary Date of Service: 09/30/19 Chief Complaint: Cough History of Present Illness: The patient is a 24 F has medical history of fibromyalgia chronic pain bipolar disorder and PTSD. Patient states she has friends are recently in the country of [place]. She is unsure exactly where the rat.. She has been exposed to them. States that she now has a cough mild nausea and subjective fever around 100. She denies diarrhea. She denies shortness of breath. Physical Examination: Appearing 24-year-old female no acute distress vital signs stable afebrile. Pulse ox are percent on room air. Oral temperature 98.7. Patient does not look septic or toxic. HEENT exam normal. Posterior pharynx normal. TMs normal. Neck nontender. No meningismus. No lymphadenopathy. Lungs clear to auscultation bilaterally. Dry cough. No rales no rhonchi no wheezing. Heart regular rhythm rate about 100 no murmur. Abdomen soft nontender normal bowel sounds no peritoneal signs. Patient is moving all 4 extremities. Neurovascular intact. Calves nontender. Skin no rashes. Back nontender. Neurologically awake alert no focal deficits. Test Results: None Emergency Department Course and Treatment: Patient will follow-up with the health department for possible outpatient testing for the coronavirus. My clinical suspicion is very low. Treatment Plan: Fluids and rest. Tylenol Motrin. Follow-up with the health department and/or primary care physician. Disposition: Discharge Impression: Acute viral syndrome This note was generated with [employer] dictation software. It may contain incorrect words, spelling, and punctuation that were not noted in review of the chart prior to signing ED Disposition - Plan for ED Patient: Referrals: Keiko Mckay MD [Primary Care Provider] -
--- NOTE | 2019-09-30 22:13 | ED.DEP ---
ED Disposition - Plan for ED Patient: Disposition: Home or Assisted Living Instructions: VIRAL SYNDROME (Adult) Referrals: Keiko Mckay MD [Primary Care Provider] - As Needed Additional Instructions: Up with the health department tomorrow to see if you qualify for coronavirus testing
--- NOTE | 2019-09-30 22:13 | ED.RN ---
SEPSIS SCREEN CANCELLED PER DR DON
--- NOTE | 2019-09-30 22:34 | ED.RN ---
spoke with [facility] at this time over patients concern for the ramos virus. Based off of patients signs and symptoms and history of present illness patient at this time would not qualify for testing. Patient has not had exposure to any positive patients or recent travel outside of the country. Dr. Puckett made aware. Will explain to the patient at this time the reasons testing is not being performed.
== END 2019-09-30 23:00 | disposition home or self-care (01) ==
LOC: ED 22:32
PROVIDERS: Emergency Provider Emergency Medicine; PCP Internal Medicine
DX: B34.9 Viral infection, unspecified (principal); R05 Cough; R11.0 Nausea; M79.7 Fibromyalgia; G89.29 Other chronic pain; K21.9 Gastro-esophageal reflux disease without esophagitis; F31.9 Bipolar disorder, unspecified; F43.10 Post-traumatic stress disorder, unspecified; Z72.0 Tobacco use; Z79.899 Other long term (current) drug therapy
CPT/HCPCS: 99282

== ENCOUNTER 2019-10-31 01:15 | Emergency (ER) | payer MEDICAID, SELFPAY ==
[2019-10-02 07:59] VITALS: BMI 23.3
[2019-10-31 01:17] VITALS: BP 124/83; PULSE 91; RESP 18; TEMP 36.6; O2SAT 98; BMI 22.9
[2019-10-31] MEDS: Ketorolac 30 MG/ML Syringe IV (01:50)
[2019-10-31] MEDS: 0.9% Normal Saline 1,000 ML 999 ML IV (01:50)
[2019-10-31] MEDS: Metoclopramide 10 MG/2 ML Vial IV (01:50)
[2019-10-31] MEDS: DiphenhydrAMINE 50 MG/ML Syringe IV (01:51)
--- NOTE | 2019-10-31 02:20 | ED.DCSUM_ITS ---
- ER Visit Summary Date of Service: 10/31/19 Chief Complaint: Headache History of Present Illness: The patient is a [address] Mckay. She reports she has a headache that began this morning and is gradually gotten worse. Is similar to her prior headaches. She reports the last 1 like this was in June. It is a sharp diffuse pain is 10 of 10 severity. Is worsened by laying flat or turning her head. She tried her triptan without relief. She has been nausea and vomited multiple times. No blood or emesis. She states she has blurred vision. She denies any recent injury to her head. No fever. Physical Examination: Vitals: Stable. Afebrile. General: Well-nourished and well-developed. Head: Normocephalic atraumatic. Neck: Supple, no lymphadenopathy. No JVD. Nontender. Cardiovascular: Regular rate and rhythm. No murmurs. Respiratory: No respiratory distress. Clear to auscultation bilaterally. Abdominal: Soft, nontender, nondistended, normal bowel sounds. No guarding, rebound, or peritoneal signs. Back: Nontender. Extremities: Nontender, no edema. Skin: Normal color, no rash. Neurologic: Alert and oriented ?3. Cranial nerves II through XII are intact. Normal strength and sensation. Psych: Normal affect. Emergency Department Course and Treatment: Patient had an IV placed. She was given Benadryl, Toradol, and Reglan IV. She is resting more comfortably. Treatment Plan: Patient will be discharged with instructions to follow-up with her primary care physician 1 to 2 days if not improving. Return to the emergency department for any worsening symptoms. Disposition: To home in improved and stable condition. Impression: 1. Recurrent headache. This note was generated with [employer] software. It may contain incorrect words, spelling, and punctuation that were not noted in review of the chart prior to signing ED Disposition - Plan for ED Patient: Instructions: ED Headache Unspecified Referrals: Keiko Mckay MD [Primary Care Provider] - 1-2 Days if not improving
[2019-10-31 03:07] VITALS: BP 120/68; PULSE 60; RESP 18; O2SAT 100
== END 2019-10-31 03:07 | disposition home or self-care (01) ==
PROVIDERS: Emergency Provider Emergency Medicine; PCP Internal Medicine
DX: R51 Headache (principal); R11.2 Nausea with vomiting, unspecified; H53.8 Other visual disturbances; Z79.899 Other long term (current) drug therapy
CPT/HCPCS: 96361; 96374; 96375; 99283; J7030

== ENCOUNTER → 2019-11-22 10:05 | Outpatient (CLI) | payer MEDICAID, SELFPAY ==
[2019-11-22 10:00] VITALS: BMI 22.9
--- NOTE | 2019-11-22 10:05 | RAD_ITS ---
STUDY: X-RAY - RIGHT KNEE REASON FOR EXAM: Female, 24 years old. Pain, multiple surgeries TECHNIQUE: 4 view(s) of the knee. COMPARISON: Comparison is made with prior examination dated March 29, 2019. FINDINGS: The patient is status post ACL reconstructive surgery with the release and tunnels within the distal femur and proximal tibia. ACL suture button is in place. Normal medial femorotibial compartment. Normal lateral femorotibial compartment. Normal patellofemoral articulation. The soft tissue structures are unremarkable. RAD/Knee 4 or More Views IMPRESSION: Stable examination. Stable post ACL repair. Electronically Signed: Robson Pathak, at 12:11 EDT , Service support ,
== END ==
PROVIDERS: PCP Internal Medicine; Referring Provider Orthopaedic Surgery; Visit Provider Orthopaedic Surgery
DX: M25.561 Pain in right knee (principal)
CPT/HCPCS: 73564

== ENCOUNTER → 2019-11-22 10:07 | Outpatient (CLI) | payer MEDICAID, SELFPAY ==
[2019-11-22 10:00] VITALS: BMI 22.9
--- NOTE | 2019-11-22 10:07 | RAD_ITS ---
STUDY: X-RAY - LUMBOSACRAL SPINE REASON FOR EXAM: Female, 24 years old. Low back pain, no injury TECHNIQUE: 6 view(s) of the lumbosacral spine were obtained including bending views. COMPARISON: None FINDINGS: Normal lumbar lordosis. There is no substantial scoliosis. There is normal alignment of the vertebrae. Normal vertebral bodies and endplates. Normal disc space heights. Normal bilateral sacral ala, sacroiliac joints, and visualized sacrum. Normal visualized soft tissue structures. RAD/L/S Spine w Bend Min 6 Vw IMPRESSION: Normal x-ray examination of the lumbosacral spine. Electronically Signed: Robson Pathak, at 12:13 EDT , Service support ,
== END ==
PROVIDERS: PCP Internal Medicine; Referring Provider Orthopaedic Surgery; Visit Provider Orthopaedic Surgery
DX: M79.604 Pain in right leg (principal); M25.561 Pain in right knee
CPT/HCPCS: 72114; 73564

== ENCOUNTER → 2019-11-25 16:56 | Outpatient (CLI) | payer MEDICAID, SELFPAY ==
[2019-11-22 10:00] VITALS: BMI 22.9
--- NOTE | 2019-11-25 16:57 | MRI_ITS ---
STUDY: MRI RIGHT KNEE REASON FOR EXAM: Right knee pain, injury 3 weeks ago, previous ACL repair and meniscal repair. TECHNIQUE: Standardized fat and water weighted pulse sequences were obtained in all 3 orthogonal planes. COMPARISON: Radiographs 11/22/2019 and MRI images 04/22/2019. FINDINGS: There is a complex signal alteration of the posterior horn of the medial meniscus (proton density sagittal images 28-32; T2 sagittal images 16, 17) and a small vertical band of signal at the periphery of the body of the medial meniscus extending to the inferior articular surface (T2 coronal image 16), either recurrent medial meniscal tear or scarring. Normal hyaline cartilage of the medial femorotibial compartment. Normal medial femoral condyle and tibial plateau. Normal medial collateral ligamentous complex (MCL). Normal distal semimembranosus, gracilis and semitendinosus tendons. Normal lateral meniscus. Normal hyaline cartilage of the lateral femorotibial compartment. Normal lateral femoral condyle and tibial plateau. Normal proximal tibiofibular articulation. Normal lateral collateral (fibular) ligament. Normal popliteus tendon. Normal biceps femoris tendon. The anterior cruciate ligament graft appears intact (T2 sagittal image 12; series 8 image 10). Normal posterior cruciate ligament (PCL). Normal congruent patellofemoral articulation. There is intermediate grade chondromalacia of the medial patellar facet/median ridge (T2 axial image 12). Normal medial and lateral patellar retinaculum. Normal quadriceps tendon. Normal patellar tendon. There is postoperative scarring in Hoffa''s fat pad. There is no joint effusion. The soft tissues are unremarkable. There is a small bone contusion of the head of the fibula (T2 sagittal image 4). There is a small enchondroma in the distal femoral diaphysis (T2 coronal image 23) measuring 0.6 cm in length. MRI/Lower Ext Joint Only (Routine) IMPRESSION: Signal alteration of the posterior horn/body of the medial meniscus, either recurrent medial meniscal tear or scarring. Chondromalacia patellae. Intact anterior cruciate ligament graft. Small bone contusion of the head of the fibula. Small enchondroma in the distal femur. Electronically Signed: Dipak Soria MD at 7:24 EDT Tel , Service support ,
== END ==
PROVIDERS: Referring Provider Orthopaedic Surgery; Visit Provider Orthopaedic Surgery
DX: S89.91XA Unspecified injury of right lower leg, initial encounter (principal); X58.XXXA Exposure to other specified factors, initial encounter; Y93.9 Activity, unspecified; Y92.9 Unspecified place or not applicable; Y99.9 Unspecified external cause status
CPT/HCPCS: 73721

== ENCOUNTER 2019-12-15 14:53 | Observation (INO) | payer MEDICAID, SELFPAY ==
[2019-11-27 09:34] VITALS: BMI 22.9
[2019-12-15] VITALS (8 sets, daily range): BP systolic 116–135; BP diastolic 63–90; PULSE 82–131; RESP 16–20; TEMP 36.3–37; O2SAT 97–100; BMI 21.5
--- NOTE | 2019-12-15 15:16 | ED.VIS.GEN ---
History of Present Illness Chief Complaint: Substance Abuse Informant: Patient Narrative: Patient presents the emergency department requesting detox from heroin, cocaine, and opiate pills. Patient states that she has had an addiction for years but more recently has been taking Percocet that she has been buying from the streets since the knee surgery last fall. She states that in the past 2 weeks she started using heroin. Cocaine is been intermittent use. She states that she last used during the night last night. She states that on Monday she began talking with 180. Currently she feels very nauseous. She states that unless she is using she does not eat. She notes a headache fatigue body aches. She states that her impetus to get clean as her 3-year-old son. In addition to that she states that her [id number] from an overdose during the night. Past Medical History - Allergies and Home Meds Allergies/Adverse Reactions: Allergies adhesive tape Allergy (Severe, Verified 12/15/19 14:54) Rash latex Allergy (Severe, Verified 12/15/19 14:54) Rash benzonatate [From Tessalon Perles] Allergy (Verified 12/15/19 14:54) Rash cephalexin [From Keflex] Allergy (Verified 12/15/19 14:54) Hives clindamycin Allergy (Verified 12/15/19 14:54) Anaphylaxis dicyclomine [From Bentyl] Allergy (Verified 12/15/19 14:54) Itching meloxicam [From Mobic] Allergy (Verified 12/15/19 14:54) Chest tightness metronidazole [From Flagyl] Allergy (Verified 12/15/19 14:54) Itching nifedipine [From Procardia] Allergy (Verified 12/15/19 14:54) Angioedema oseltamivir [From Tamiflu] Allergy (Verified 12/15/19 14:54) Hives Penicillins Allergy (Verified 12/15/19 14:54) Anaphylaxis prednisone Allergy (Verified 12/15/19 14:54) Rash progesterone Allergy (Verified 12/15/19 14:54) Hives -cream form only Sulfa (Sulfonamide Antibiotics) Allergy (Verified 12/15/19 14:54) Hives terbutaline [From Brethine] Allergy (Verified 12/15/19 14:54) Angioedema ondansetron [From Zofran (as hydrochloride)] Adverse Reaction (Verified 12/15/19 14:54) Other PT STATES IT MAKES ME CONSTIPATED Primary Care Physician: Care Physician,No Primary [Primary Care Provider] - Surgical History: hysterectomy Smoking Status: Current every day smoker - Family History Maternal Family History: Family History (Last Updated 11/06/17 @ 11:09 by Avani Hernández) Mother Alcoholism Asthma Cancer Anxiety and depression Seizures Father Anxiety and depression Alcoholism Seizures Diabetes Myocardial infarction, Onset Age: 39 Grandmother Cancer Thyroid disorder COPD (chronic obstructive pulmonary disease) Hypertension Hyperlipemia Asthma Sister Cystic fibrosis Asthma Brother Cystic fibrosis Mental retardation Aunt Breast cancer Aunt Cancer Unknown Cancer Family History: Reports: Cancer, Pulmonary Disease, Seizures Paternal Family History: Family History (Last Updated 11/06/17 @ 11:09 by Avani Hernández) Mother Alcoholism Asthma Cancer Anxiety and depression Seizures Father Anxiety and depression Alcoholism Seizures Diabetes Myocardial infarction, Onset Age: 39 Grandmother Cancer Thyroid disorder COPD (chronic obstructive pulmonary disease) Hypertension Hyperlipemia Asthma Sister Cystic fibrosis Asthma Brother Cystic fibrosis Mental retardation Aunt Breast cancer Aunt Cancer Unknown Cancer Family History: Reports: Diabetes, High Cholesterol, Heart Disease, Hypertension, Seizures Review of Systems General: Denies: Chills, Fever, Sweats Eyes: Denies: Visual changes - bilaterally, Diplopia ENT: Denies: Rhinorrhea, Sore throat Cardiovascular: Denies: Chest pain, Palpitations Respiratory: Denies: Dyspnea, Cough, Dyspnea on exertion Gastrointestinal: Reports: Nausea, Vomiting. Denies: Abdominal pain, Diarrhea, Melena, Hematochezia Genitourinary: Denies: Dysuria, Hematuria, Frequency Musculoskeletal: Reports: Myalgias. Denies: Back pain, Extremity Pain Skin: Denies: Rash, Wounds Neurological: Reports: Headache. Denies: Weakness, Numbness Psych: Reports: Depression. Denies: Suicidal thoughts, Suicidal ideations Physical Exam Vital Signs/Narrative: Vital Signs Temp Pulse Resp BP Pulse Ox 12/15/19 14:53 97.3 F L 131 H 18 128/90 H 98 Inital Vital Signs reviewed: Yes General: Well nourished, Well developed, No Acute Distress Head: Normocephalic, Atraumatic Eyes: Perrl, EOMI ENT: Moist mucous membranes, No rhinorrhea Neck: Supple, Nontender Cardiovascular: Regular rate, No murmurs, Tachycardia Respiratory: No distress, CTA bilaterally, Chest nontender Abdomen: Soft, Nontender, Nondistended, Normal bowel sounds Back: Nontender, Normal Inspection Extremities: Nontender, No edema Skin: Normal color, No rash Neurological: Alert, Oriented x3, Cranial nerves II-XII grossly intact, Normal Strength, Normal Sensation Psychological: Normal affect, Normal Mood Diagnostic/Tx/Re-eval - Medical Decision Making ED addiction medicine order set was ordered. [place] level was added. I spoke with our hospitalist who will be admitting. ED Disposition - Plan for ED Patient: Disposition: Acute Care Hospital [facility] Diagnosis: Opiate withdrawal, Bipolar disorder Referrals: Care Physician,No Primary [Primary Care Provider] -
[2019-12-15] MEDS: proMETHazine 25 MG Tablet PO (16:01)
--- NOTE | 2019-12-15 16:22 | HP.PCM_ITS ---
Problem List (1) Opiate withdrawal Status: Acute (2) Tobacco use Status: Chronic (3) Chronic back pain Status: Chronic Qualifiers: Back pain location: back pain in unspecified location Back pain laterality: unspecified Qualified Code(s): M54.9 - Dorsalgia, unspecified; G89.29 - Other chronic pain (4) Pseudoseizures Status: Chronic (5) PTSD (post-traumatic stress disorder) Status: Chronic (6) Bipolar disorder Status: Chronic Qualifiers: Active/Remission status: remission status unspecified Qualified Code(s): F31.9 - Bipolar disorder, unspecified (7) Seizures Status: Chronic (8) Migraines Status: Chronic Qualifiers: Migraine type: unspecified Status migrainosus presence: without status migrainosus Intractability: not intractable Qualified Code(s): G43.909 - Migraine, unspecified, not intractable, without status migrainosus (9) IBS (irritable bowel syndrome) Status: Chronic Qualifiers: Irritable bowel syndrome type: unspecified Qualified Code(s): K58.9 - Irritable bowel syndrome without diarrhea (10) GERD (gastroesophageal reflux disease) Status: Chronic Qualifiers: Esophagitis presence: esophagitis presence not specified Qualified Code(s): K21.9 - Gastro-esophageal reflux disease without esophagitis (11) Asthma Status: Chronic Qualifiers: Asthma severity: unspecified severity Asthma persistence: unspecified Asthma complication type: unspecified Qualified Code(s): J45.909 - Unspecified asthma, uncomplicated History of Present Illness Date of Admission: 12/15/19 Chief Complaint: Acute Opiate Withdrawal The patient is a 24 y/o F w/ PMHx: Tobacco use, Chronic back pain, Hx Pseudoseizures, Anxiety and Depression/Schizoaffective disorder/PTSD, GERD, Migraines, Polysubstance abuse with chronic usage of heroin, cocaine and Percocet noting that she usually uses at least 2 lines of heroin snorted daily and uses approximately $120 a day of cocaine in addition to occasional crushed Percocet which is also snorted with last usage at approximately midnight to 1 AM on 12/15/2019 with opiate withdrawal onset starting in the afternoon on day of ED presentation with abdominal pain, cramping, generalized body aches and pains, rhinorrhea, fatigue, restless leg, sweating. Patient denies ever having been evaluated and treated in acute rehab prior. She notes she had attempted to while she was but was declined secondary to the and states that she did go through withdrawal at that time. Patient does have 4 children and has custody of only 1 and notes that the other are with other families. Patient interested in attaining clean status. Work-up in the ED included T 97.3, heart rate 131, BP 120/90, respiratory rate 18, 98% on room air, unremarkable CBC, unremarkable CMP aside potassium 3.0, EtOH and ethyl alcohol l evel pending. Past Medical History Past Medical History (Chronic Problems): Chronic Problems (Last Updated 11/06/17 @ 11:03 by Avani Hernández) PTSD (post-traumatic stress disorder) (Chronic) Bipolar disorder (Chronic) Anxiety disorder (Chronic) Sacroiliitis, not elsewhere classified (Chronic) Sacrococcygeal disorders, not elsewhere classified (Chronic) Tobacco use (Chronic) Chronic back pain (Chronic) Pseudoseizures (Chronic) Tunnel vision (Chronic) Stomach ulcer (Chronic) Seizures (Chronic) Deafness in left ear (Chronic) Migraines (Chronic) IBS (irritable bowel syndrome) (Chronic) GERD (gastroesophageal reflux disease) (Chronic) Chronic bronchitis (Chronic) Asthma (Chronic) Medical History: Medical History (Last Updated 11/06/17 @ 11:03 by Avani Hernández) Tunnel vision (Chronic) H53.489 Stomach ulcer (Chronic) K25.9 Preeclampsia (Acute) O14.90 Seizures (Chronic) R56.9 Deafness in left ear (Chronic) H91.92 Migraines (Chronic) G43.909 IBS (irritable bowel syndrome) (Chronic) K58.9 History of broken finger (Acute) Z87.81 Frequent UTI (Acute) N39.0 GERD (gastroesophageal reflux disease) (Chronic) K21.9 Acute back pain with sciatica (Acute) M54.40 Chronic bronchitis (Chronic) J42 Asthma (Chronic) J45.909 Allergies adhesive tape Allergy (Severe, Verified 12/15/19 14:54) Rash latex Allergy (Severe, Verified 12/15/19 14:54) Rash benzonatate [From Tessalon Perles] Allergy (Verified 12/15/19 14:54) Rash cephalexin [From Keflex] Allergy (Verified 12/15/19 14:54) Hives clindamycin Allergy (Verified 12/15/19 14:54) Anaphylaxis dicyclomine [From Bentyl] Allergy (Verified 12/15/19 14:54) Itching meloxicam [From Mobic] Allergy (Verified 12/15/19 14:54) Chest tightness metronidazole [From Flagyl] Allergy (Verified 12/15/19 14:54) Itching nifedipine [From Procardia] Allergy (Verified 12/15/19 14:54) Angioedema oseltamivir [From Tamiflu] Allergy (Verified 12/15/19 14:54) Hives Penicillins Allergy (Verified 12/15/19 14:54) Anaphylaxis prednisone Allergy (Verified 12/15/19 14:54) Rash progesterone Allergy (Verified 12/15/19 14:54) Hives -cream form only Sulfa (Sulfonamide Antibiotics) Allergy (Verified 12/15/19 14:54) Hives terbutaline [From Brethine] Allergy (Verified 12/15/19 14:54) Angioedema ondansetron [From Zofran (as hydrochloride)] Adverse Reaction (Verified 12/15/19 14:54) Other PT STATES IT MAKES ME CONSTIPATED Home Medications: Ambulatory Orders Medication Instructions Recorded Albuterol Inhaler [Ventolin Hfa 2 puff INHALATION DAILY PRN PRN 02/05/17 (SP)] No122/Iron/Folic Acid 1 ea PO DAILY 04/29/17 [ Multi Tablet] fluticasone propionate 110 2 puff INHALATION BID #12 g 12/12/17 mcg/actuation HFA aerosol inhaler Omeprazole 40 mg PO QHS 06/22/18 Polyethylene Glycol 3350 [Miralax] 17 gm PO PRN PRN 06/22/18 Fluticasone 0.05% [Flonase Nasal 1 spray NASAL DAILY #1 bottle 10/16/18 Marydel] [place] Carbonate 600 mg PO BID 10/16/18 prochlorperazine maleate 10 mg 10 mg PO BID 01/30/19 tablet ibuprofen 600 mg tablet 600 mg PO Q8H #90 tab 05/08/19 Estradiol 1 patch TOPICAL QWEEK 09/03/19 Rizatriptan Benzoate [Rizatriptan] 10 mg PO BID 09/03/19 cholecalciferol (vitamin D3) 25 2 cap PO DAILY 11/22/19 mcg (1,000 unit) capsule escitalopram oxalate 10 mg tablet 1 tab PO DAILY 11/22/19 topiramate 50 mg tablet 1 tab PO DAILY 11/22/19 Surgical History: Surgical History (Last Updated 11/06/17 @ 11:03 by Avani Hernández) History of colonoscopy Z98.890 2017 History of repair of anterior cruciate ligament of left knee Z98.890 History of tubal ligation Z98.51 History of wisdom tooth extraction K08.409 Surgical History: hysterectomy, - - Bilateral tubal ligation with eventual hysterectomy, right knee arthroscopic surgery with meniscal tear repair and ACL repair. Psychiatric History: Anxiety, Bipolar, Depression, - - Schizoaffective disorder PROVIDER SERVICE REPRESENTATIVE History: No pertinent PROVIDER SERVICE REPRESENTATIVE history Lives: With Family - She lives with her young son. Currently her ex-, father of this child staying with her so she could start this acute detox program. Smoking Status: Current every day smoker - 2 ppd Cigarette tobacco use x 13 years. Tobacco Use: Cigarettes Alcohol: Occasional - Patient currently drinking only occasionally but in the past had been a heavy drinker but really decreased her intake 06/2018 and currently notes the last drink she had was a glass of wine on [place]. Drugs: Cocaine - Snorted, Heroin - Snorted, - - Percocets snorted. - *Family History Maternal Family History: Family History (Last Updated 11/06/17 @ 11:09 by Avani Hernández) Mother Alcoholism Asthma Cancer Anxiety and depression Seizures Father Anxiety and depression Alcoholism Seizures Diabetes Myocardial infarction, Onset Age: 39 Grandmother Cancer Thyroid disorder COPD (chronic obstructive pulmonary disease) Hypertension Hyperlipemia Asthma Sister Cystic fibrosis Asthma Brother Cystic fibrosis Mental retardation Aunt Breast cancer Aunt Cancer Unknown Cancer History Items: Cancer, Pulmonary Disease, Seizures Paternal Family History: Family History (Last Updated 11/06/17 @ 11:09 by Avani Hernández) Mother Alcoholism Asthma Cancer Anxiety and depression Seizures Father Anxiety and depression Alcoholism Seizures Diabetes Myocardial infarction, Onset Age: 39 Grandmother Cancer Thyroid disorder COPD (chronic obstructive pulmonary disease) Hypertension Hyperlipemia Asthma Sister Cystic fibrosis Asthma Brother Cystic fibrosis Mental retardation Aunt Breast cancer Aunt Cancer Unknown Cancer History Items: Diabetes, High Cholesterol, Heart Disease, Hypertension, Seizures Review of Systems Constitutional: Reports: Anorexia, Weakness, Fatigue. Denies: Chills, Fever, Weight Change HEENT: Reports: Head Aches, Nasal Congestion, Sinus Congestion. Denies: Sinus Drainage Cardiovascular: Denies: Chest Pain, Palpitations Respiratory: Denies: Cough, Shortness of Breath, Shortness of breath at rest, Shortness of breath upon exertion, Sputum production, Wheezing Gastrointestinal: Reports: Abdominal Pain, Diarrhea, Nausea, Vomiting Genitourinary: Denies: Dysuria Musculoskeletal: Reports: Back Pain, Joint Pain, Muscle pain. Denies: Joint Tenderness Skin: Denies: Rash, Wounds Neurological: Denies: Numbness, Tingling, Focal weakness Psychiatric: Reports: Anxiety, Depression. Denies: Homicidal Ideations, Suicida l Ideations Hematologic/ Lymphatic: Denies: Easy Bruising, Easy Bleeding VTE Information - Inpt Only VTE Present on Admission: No VTE Mechan Device Prophylaxis: None VTE Pharm Prophylaxis ordered?: No Reason prophylaxis not ordered:: Treatment Not Indicated Patient Problems: Active and Suspected Problems (Last Updated 11/06/17 @ 11:03 by Avani Hernández) Opiate withdrawal (Acute) Subjective: Seated upright in the ED bed, restless legs evidence, nauseated, rhinorrhea evident. Objective: Physical Examination: General: awake, alert, oriented x 3 and cooperative, seated upright in the ED bed, restless legs evident, rhinorrhea and congestion evident, noting nausea requiring emesis bag to be given. Skin: normal color, turgor, no icterus, cyanosis. HEENT: AT/NC, EOMI, PERRLA, dry MM, no carotid bruits or JVD noted. Lungs: CTA bilaterally, moderate effort, mild decrease BL bases, no rales, ronchi or wheezing. Heart: Tachycardic with regular rhythm; no gallop, rub audible. Abdomen: soft, generalized diffuse tenderness to palpation with no rebound or guarding, ND, hyperactive BS, no HSM. Extremities: no cyanosis, clubbing, or edema. Neurological: patient awake, alert, oriented x 3; cognitive function appears baseline intact although fatigued and agitated concurrently; pupils equally reactive to light and accomodation; cranial nerves II-XII grossly normal, moving all 4 extremities, no focal deficits, strength moderately global decreased secondary to acute presentation. Psychiatric: affect appears fatigued and mildly agitated concurrently, no acute evidence of depressive or anxiety feelings. - Physical Exam Vitals/I&O's: Vital Signs Temp Pulse Resp BP Pulse Ox 97.3 F L 131 H 18 128/90 H 98 12/15/19 14:53 12/15/19 14:53 12/15/19 14:53 12/15/19 14:53 12/15/19 14:53 Oxygen Delivery Method Room Air Weight: 129 lb 6.581 oz Body Mass Index (BMI) 21.5 Laboratory Results 12/15/19 15:55: WBC Pending, RBC Pending, Hgb Pending, Hct Pending, MCV Pending, MCH Pending, MCHC Pending, RDW Std Deviation Pending, RDW Coeff of Jo Pending, Plt Count Pending, Neut % (Auto) Pending, Absolute Neuts (auto) Pending 12/15/19 15:55: Sodium Pending, Potassium Pending, Chloride Pending, Carbon Dioxide Pending, Anion Gap Pending, BUN Pending, Creatinine Pending, Est GFR (MDRD) Af Amer Pending, Est GFR (MDRD) Non-Af Pending, BUN/Creatinine Ratio Pending, Glucose Pending, Calcium Pending, Total Bilirubin Pending, AST Pending, ALT Pending, Alkaline Phosphatase Pending, Total Protein Pending, Albumin Pending 12/15/19 15:55: Ethyl Alcohol Pending 12/15/19 15:55: Urine Opiates Screen Pending, Urine Methadone Screen Pending, Ur Barbiturates Screen Pending, Ur Phencyclidine Scrn Pending, Ur Amphetamines Screen Pending, U Methamphetamin-MDMA Pending, U Benzodiazepines Scrn Pending, Urine Cocaine Screen Pending, U Cannabinoids Screen Pending, Ur Drug Screen C omment 12/15/19 15:55: Aguila Pending Assessment/Plan All Active Problems (Last Updated 11/06/17 @ 11:03 by Avani Hernández) Opiate withdrawal (Acute) Preeclampsia (Acute) History of broken finger (Acute) Frequent UTI (Acute) Acute back pain with sciatica (Acute) The patient is a 24 y/o F w/ PMHx: Tobacco use, Chronic back pain, Hx Pseudoseizures, Anxiety and Depression/Schizoaffective disorder/PTSD, GERD, Migraines, Polysubstance abuse with chronic usage of heroin, cocaine and Percocet noting that she usually uses at least 2 lines of heroin snorted daily and uses approximately $120 a day of cocaine in addition to occasional crushed Percocet which is also snorted with last usage at approximately midnight to 1 AM on 12/15/2019 with opiate withdrawal onset. 1. Acute Opiate Withdrawal: Will admit to [facility], obtain routine labs including CBC, CMP, urine for drug screen, routine EKG given cocaine usage and will initiate and continue on tapering course of Subutex, as needed Seroquel, gabapentin, Catapres, Bentyl, Vistaril, IV fluids, IV antiemetics, Tylenol as needed for pain. Will consult case management for substance abuse for transition to [facility]. Of note patient has custody of a child and normally lives alone at her home however currently 1 of her ex-'s is watching the child but she notes intention to take him with her to the next phase of rehab which may need to also be discussed with case management/social work. 2. Polysubstance Abuse, denied IV drug abuse history but chronic abuse: Patient unable to give exact method of pain for her drugs, discussed frankly and will obtain HIV and hepatitis panel to which she is amenable. 3. Tobacco Abuse: Encouraged cessation, inpatient consultation per RT, NR if desired. 4. Anxiety and depression/bipolar disorder type I/PTSD/Schizoaffective disorder: We will continue patient escitalopram, lithium with level pending, topiramate. 5. Chronic asthma: We will continue patient home inhaler regimen with PRN breakthrough albuterol as needed. 6. Chronic back pain: Patient is not on any chronic narcotic therapy however she does follow with chronic pain clinic and discussed that she should notify their office of her admission and intention for acute withdrawal treatment. 7. Migraines: We will continue patient home topiramate and triptan regimen. 8. GERD: We will maintain on famotidine. 9. Hypokalemia: Admission K+ 3.0, magnesium level requested, supplementation given, repeat level in AM. 10. DVT prophylaxis: Low risk, encourage ambulation. Inpatient E&M: 81484 Init Hosp L3
[2019-12-15 16:25] LABS: Absolute Lymphocyte Count 2.45 X10^3/uL (0.83-4.51); Absolute Neutrophil Count 3.4 X10^3/uL (2.0-7.7); Basophil# 0.09 X10^3/uL; Basophil% 1.3 % (0-1); Eosinophil# 0.22 X10^3/uL; Eosinophils% 3.2 % (0-5); Hematocrit 39.6 % (37-47); Hemoglobin 13.4 g/dL (12.0-15.0); Lymphocyte # 2.45 X10^3/ul (4.0); Lymphocyte % 36.1 % (19-41); Mean Corp Hgb Conc 33.8 g/dL (32-36); Mean Corpuscular Hgb 30.2 pg (27.0-32.0); Mean Corpuscular Volume 89.2 fL (81-99); Mean Platelet Vol. 10.9 fl (6.2-12.0); Monocyte% 8.8 % (0-10); NRBC Flagged by Analyzer 0 % (0-5); Neutrophil # 3.42 X10^3/uL (2.7-7.7); Neutrophil % 50.5 % (47-70); Platelet Count 204 K/mm3 (150-450); RBC Distribution Width CV 11.7 % (11.6-14.6); RBC Distribution Width SD 37.4 fl (35.1-43.9); Red Blood Count 4.44 M/mm3 (4.2-5.4); White Blood Count 6.8 K/mm3 (4.4-11.0)
--- NOTE | 2019-12-15 16:35 | NURSING ---
MED SURG WHITE ACUTE OPIATE WITHDRAWAL
[2019-12-15 16:39] LABS: ALB/GLOB Ratio 1.1 RATIO (0.9-2.4); AST(SGOT) 15 U/L (15-37); Alanine Aminotransfer ALT/SGPT 17 U/L (13-56); Albumin, Serum 3.9 g/dL (3.2-5.0); Alkaline Phosphatase 75 U/L (45-117); Anion Gap 5 (5-15); BUN 13 mg/dL (7-18); BUN/Creat Ratio 15.7 RATIO (10-20); Calcium,Total 8.8 mg/dL (8.5-10.1); Chloride 104 mmol/L (98-107); Creatinine, Serum 0.83 mg/dL (0.55-1.02); EST Glomerular Filtration Rate 89 mL/min (>60); Est Glom Filt Rate - Afr Amer 107 mL/min (>60); Estimated Creatinine Clearance 93.24 ml/min; Globulin 3.4 g/dL (2.2-4.2); Glucose 89 mg/dL (74-106); Protein, Total 7.3 g/dL (6.4-8.2); Sodium Level 138 mmol/L (136-145)
[2019-12-15 17:05] LABS: Amphetamine Urine VISTA NEGATIVE (<1000 ng/mL); Barbiturate Urine VISTA NEGATIVE (< 200 ng/mL); Benzodiazepine Urine VISTA NEGATIVE (< 200 ng/mL); Cocaine Urine VISTA NEGATIVE (< 300 ng/mL); Ecstacy Urine VISTA NEGATIVE (< 500 ng/mL); Methadone Urine VISTA NEGATIVE (< 300 ng/mL); PCP Urine VISTA NEGATIVE (< 25 ng/mL); THC Urine VISTA NEGATIVE (< 50 ng/mL); Vista UDS pH Range 7
[2019-12-15 17:15] LABS: Alcohol, Blood (Medical)-Serum < 3.0 mg/dL
[2019-12-15 17:23] LABS: Lithium < 0.20 mmol/L (0.60-1.20)
--- NOTE | 2019-12-15 18:55 | EKG12_ITS ---
Test Reason : ARRHYTHMIA Blood Pressure : / mmHG Vent. Rate : 084 BPM Atrial Rate : 084 BPM P-R Int : 162 ms QRS Dur : 106 ms QT Int : 396 ms P-R-T Axes : 082 089 069 degrees QTc Int : 467 ms Normal sinus rhythm Normal ECG When compared with ECG of 10-DEC-2018 17:02, No significant change was found Confirmed by GELACIO CRUZ, DEBBIE ([id number]), managing editor SRINATH MOORE ([id number]) on 12/23/2019 11:35:32 AM Referred By: JOSE ROBERTO Confirmed By:GRACE BRIZUELA MD
[2019-12-15] MEDS: Albuterol 2.5 MG/3 ML VIAL.NEB. INHALATION (20:01)
[2019-12-15] MEDS: Budesonide Respules 0.5 MG/2 ML AMPUL.NEB. INHALATION (20:01)
[2019-12-15] MEDS: Lactated Ringers 1,000 ML 125 ML IV (20:04)
[2019-12-15 20:06] LABS: Magnesium 1.9 mg/dL (1.6-2.6)
--- NOTE | 2019-12-15 20:39 | CPS ---
Patient did not tolerate Pulmicort and Albuterol aerosol tx. Took about 3-5 mins of tx before she could not take anymore. Said that it was to strong compared to her home inhalers. Does want to try again in the morning, but with a mask for the aerosol tx. 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
[2019-12-15 21:47] LABS: HIV - WCH Non-Reactive (Nonreactive)
[2019-12-15 21:56] LABS: Hepatitis B Surface Antibody Non-Reactive; Hepatitis C Antibody Non-Reactive (Nonreactive)
[2019-12-15] MEDS: Buprenorphine HCl 2 MG TAB.SUBL SL (22:19)
[2019-12-15] MEDS: Lithium Carbonate 300mg Capsule 600 MG PO (22:22)
[2019-12-15] MEDS: Famotidine 20 MG Tablet PO (22:22)
[2019-12-15] MEDS: Pantoprazole Sodium 40 MG Tablet PO (22:22)
[2019-12-15] MEDS: Topiramate 50 MG Tablet PO (23:25)
[2019-12-16] VITALS (8 sets, daily range): BP systolic 101–115; BP diastolic 50–73; PULSE 76–88; RESP 16–20; TEMP 36.4–36.8; O2SAT 94–100
[2019-12-16] MEDS: Methocarbamol 750 MG Tablet 1500 MG PO ×4 (02:29→21:33)
[2019-12-16] MEDS: cloNIDine HCl 0.1 MG Tablet PO ×2 (05:29→15:44)
[2019-12-16] MEDS: Ibuprofen 600 MG Tablet PO ×2 (05:30→21:33)
[2019-12-16] MEDS: Buprenorphine HCl 2 MG TAB.SUBL SL ×3 (05:32→21:04)
[2019-12-16] MEDS: Albuterol 2.5 MG/3 ML VIAL.NEB. INHALATION ×3 (06:32→19:45)
[2019-12-16] MEDS: Budesonide Respules 0.5 MG/2 ML AMPUL.NEB. INHALATION ×2 (06:32→19:45)
[2019-12-16 08:26] LABS: Internal QC Validated? YES +Cl - CLEAR BKGD; Pregnancy, Serum, hCG Quali. NEGATIVE Negative
[2019-12-16] MEDS: Famotidine 20 MG Tablet PO ×2 (09:55→21:05)
[2019-12-16] MEDS: Escitalopram Oxalate 10 MG Tablet PO (09:55)
[2019-12-16] MEDS: Lithium Carbonate 300mg Capsule 600 MG PO ×2 (09:57→21:03)
[2019-12-16] MEDS: Fluticasone 0.05% 1 SPRAY NASAL.SRY NASAL (09:58)
--- NOTE | 2019-12-16 09:58 | PCM.PN.HOSP ---
Patient Problems: Active and Suspected Problems (Last Updated 11/06/17 @ 11:03 by Avani Hernández) Opiate withdrawal (Acute) Bipolar disorder (Acute) Reason for Visit: opiate wd Subjective: Complains of nausea. States that after she takes the abdomen or pain, she gets itching that can be very intense. States that she gets is itching when she takes illicit narcotics up to her morphine. She denies any rash, however. Is concerned about her Topamax, states that she takes it 100 mg at night to help with nightmares. Vitals/I&O's: Vital Signs Temp Pulse Resp BP Pulse Ox 36.6 C 85 20 H 106/65 97 12/16/19 05:20 12/16/19 06:32 12/16/19 06:32 12/16/19 05:12/16/19 06:32 Oxygen Delivery Method Room Air Weight: 58.7 kg Body Mass Index (BMI) 21.5 Intake and Output for Last 24 Hours 12/14/19 12/15/19 12/16/19 23:59 23:59 23:59 Intake Total 300 / 300 1387.5 / 1387.5 Output Total 200 / 200 Balance 100 / 100 1387.5 / 1387.5 General: Alert, No apparent distress HEENT: Atraumatic, Normocephalic Oral: Moist Mucosa, No Gingival or Mucosal Lesions/ Ulcerations Neck: No Nodes, Thyroid Normal Size and Texture Lungs: Clear to auscultation, Normal air movement, No rhonchi, No wheeze, No rales Cardiovascular: Regular rate, Regular Rhythm, Normal S1, Normal S2, No murmurs Abdomen: Bowel Sounds Present, Soft, Non Tender, Non-Distended, No Hepato-splenomegaly Extremities: No edema, No Calf Tenderness Psych/Mental Status: Normal Affect, Appropriate Laboratory Results 12/15/19 15:55: WBC 6.8, RBC 4.44, Hgb 13.4, Hct 39.6, MCV 89.2, MCH 30.2, MCHC 33.8, RDW Std Deviation 37.4, RDW Coeff of Jo 11.7, Plt Count 204, MPV 10.9, Immature Gran % (Auto) 0.100, Neut % (Auto) 50.5, Lymph % (Auto) 36.1, Howard % (Auto) 8.8, Eos % (Auto) 3.2, Baso % (Auto) 1.3 H, Absolute Neuts (auto) 3.4, Absolute Lymphs (auto) 2.45, Nucleated RBC % 0 12/15/19 15:55: Sodium 138, Potassium 3.0 L, Chloride 104, Carbon Dioxide 29.0, Anion Gap 5, BUN 13, Creatinine 0.83, Estim Creat Clear Calc 93.24, Est GFR (MDRD) Af Amer 107, Est GFR (MDRD) Non-Af 89, BUN/Creatinine Ratio 15.7, Glucose 89, Calcium 8.8, Total Bilirubin 0.70, AST 15, ALT 17, Alkaline Phosphatase 75, Total Protein 7.3, Albumin 3.9, Globulin 3.4, Albumin/Globulin Ratio 1.1 12/15/19 15:55: Ethyl Alcohol < 3.0 12/15/19 15:55: Urine Opiates Screen NEGATIVE, Urine Methadone Screen NEGATIVE, Ur Barbiturates Screen NEGATIVE, Ur Phencyclidine Scrn NEGATIVE, Ur Amphetamines Screen NEGATIVE, U Methamphetamin-MDMA NEGATIVE, U Benzodiazepines Scrn NEGATIVE, Urine Cocaine Screen NEGATIVE, U Cannabinoids Screen NEGATIVE, Ur Drug Screen Comment 12/15/19 15:55: [place]rain[place] < 0.20 L 12/15/19 15:55: Magnesium 1.9 12/15/19 15:55: HIV 1&2 Antibody Non-Reactive 12/15/19 15:55: Hep Bs Antibody Non-Reactive, Hepatitis C Antibody Non-Reactive 12/15/19 15:55: Serum , Qual NEGATIVE Current Medications Acetaminophen (Tylenol) 500 mg PO Q4H PRN PRN PRN Reason: Temp > 100.4 F Al Hydroxide/Mg Hydroxide (Mylanta Ii) 30 ml PO Q6H PRN PRN PRN Reason: dyspesia Albuterol Sulfate (Ventolin Aerosols) 2.5 mg INHALATION Q2H PRN PRN PRN Reason: Dyspnea, wheezing Last Admin: 12/16/19 06:32 Dose: 2.5 mg Documented by: Bisacodyl (Dulcolax) 10 mg RECTAL DAILY PRN PRN Reason: Constipation Budesonide (Pulmicort Aerosol) 0.5 mg INHALATION Q12H.RT AYESHA Last Admin: 12/16/19 06:32 Dose: 0.5 mg Documented by: Buprenorphine HCl (Buprenorphine Hcl) 4 mg SL Q8H [facility]; Taper Stop: 12/18/19 21:29 Last Admin: 12/16/19 05:32 Dose: 4 mg Documented by: Clonidine (Catapres) 0.1 mg PO Q8H PRN PRN PRN Reason: RESTLESSNESS Last Admin: 12/16/19 05:29 Dose: 0.1 mg Documented by: Dextrose (D50w Syringe) 0 gm IV X1 PRN; Protocol PRN Reason: Hypoglycemia Diphenhydramine HCl (Benadryl) 25 mg PO Q6H PRN PRN Reason: ITCHING Escitalopram Oxalate (Lexapro) 10 mg PO DAILY [facility] Estradiol (Vivelle-Dot, Estraderm) 0.1 mg TRANSDERM. QWEEK [facility] Last Admin: 12/15/19 22:28 Dose: 0.1 mg Documented by: Famotidine (Pepcid) 20 mg PO BID [facility] Last Admin: 12/15/19 22:22 Dose: 20 mg Documented by: Fluticasone Propionate (Flonase Nasal [place]) 1 spray NASAL DAILY [facility] Gabapentin (Neurontin) 300 mg PO Q8H PRN PRN PRN Reason: moderate to severe anxiety Glucagon () 1 mg IM .X1 PRN PRN Reason: Hypoglycemia Hydroxyzine Pamoate (Vistaril Pamoate Capsule) 50 mg PO Q6H PRN PRN PRN Reason: mild anxiety Ibuprofen (Motrin) 600 mg PO Q8H PRN PRN PRN Reason: Pain Score 1-10/10 Last Admin: 12/16/19 05:30 Dose: 600 mg Documented by: Grainola Carbonate (Grainola Carbonate) 600 mg PO BID [facility] Last Admin: 12/15/19 22:22 Dose: 600 mg Documented by: Loperamide HCl (Imodium) 2 mg PO Q4H PRN PRN PRN Reason: LOOSE STOOLS Methocarbamol (Methocarbamol) 1,500 mg PO Q6H PRN PRN PRN Reason: MUSCLE SPASM Last Admin: 12/16/19 09:39 Dose: 1,500 mg Documented by: Nicotine (Nicoderm Cq (Pbkc)) 21 mg TRANSDERM. DAILY [facility] Last Admin: 12/15/19 20:07 Dose: 21 mg Documented by: Nutritional Formula (Lactose Free) (Ensure Enlive) 120 ml PO 4X/DAY [facility] Ondansetron HCl (Zofran) 8 mg PO Q8H PRN PRN PRN Reason: NAUSEA Pantoprazole Sodium (Protonix) 40 mg PO QHS [facility] Last Admin: 12/15/19 22:22 Dose: 40 mg Documented by: Prochlorperazine Maleate (Compazine Tablet) 10 mg PO DAILY PRN PRN PRN Reason: NAUSEA Rizatriptan Benzoate (Maxalt) 10 mg PO .X1 PRN PRN PRN Reason: MIGRAINE SYMPTOMS Senna (Senokot) 2 tablet PO QHS PRN PRN PRN Reason: Constipation Sodium Chloride () 10 - 40 ml IV UD PRN PRN Reason: SALINE FLUSH Topiramate (Topamax) 100 mg PO QHS AYESHA Trazodone HCl (Desyrel) 100 mg PO QHS PRN PRN PRN Reason: INSOMNIA STROKE Vital Signs/Narrative: Vital Signs Pulse Resp Pulse Ox 12/16/19 06:32 85 20 H 97 Medical Necessity - Tobacco Use Smoking Status: Current every day smoker Tobacco Use: Cigarettes Assessment/Plan All Active Problems (Last Updated 11/06/17 @ 11:03 by Avani Hernández) Opiate withdrawal (Acute) Bipolar disorder (Acute) Preeclampsia (Acute) History of broken finger (Acute) Frequent UTI (Acute) Acute back pain with sciatica (Acute) 1. acute opiate withdrawal continue with buprenorphine taper. However, if patient starts having worsening itching or discontinued the buprenorphine altogether. And then treat her supportively. Patient inquired as to how she would be discharged from here. Told her that I would that case management regards to addressing how she would proceed if it would be directly to 180 on inpatient side or to continue at a later point as outpatient. 2. Pruritus: Seem to be secondary to the buprenorphine. No evidence of any kind of rash at this time. Will just monitor for now but patient will be on diphenhydramine as needed. 3. VTE prophylaxis: Low risk. Plan for discharge on the . Inpatient E&M: 03262 Subs Hosp L2
[2019-12-16] MEDS: Metoclopramide 5 MG TABLET PO (12:51)
[2019-12-16] MEDS: Senna Tablet 2 TABLET PO (15:44)
[2019-12-16] MEDS: hydrOXYzine PAM 25 MG Capsule 50 MG PO ×2 (15:44→21:32)
[2019-12-16] MEDS: DiphenhydrAMINE 25 MG Capsule PO ×2 (16:21→22:20)
--- NOTE | 2019-12-16 18:31 | NURSING ---
CINA score is 0. Pt is asleep in bed.
[2019-12-16] MEDS: Pantoprazole Sodium 40 MG Tablet PO (21:03)
[2019-12-16] MEDS: Topiramate 100 MG Tablet PO (21:03)
[2019-12-17] VITALS (7 sets, daily range): BP systolic 101–116; BP diastolic 59–71; PULSE 72–90; RESP 16–18; TEMP 36.6–36.9; O2SAT 97–100
[2019-12-17] MEDS: Methocarbamol 750 MG Tablet 1500 MG PO ×3 (03:39→17:39)
[2019-12-17] MEDS: Senna Tablet 2 TABLET PO ×2 (03:40→17:38)
[2019-12-17] MEDS: Metoclopramide 5 MG TABLET PO ×2 (03:40→12:43)
[2019-12-17] MEDS: cloNIDine HCl 0.1 MG Tablet PO ×3 (03:40→22:24)
[2019-12-17] MEDS: Buprenorphine HCl 2 MG TAB.SUBL SL ×3 (05:39→22:07)
[2019-12-17] MEDS: DiphenhydrAMINE 25 MG Capsule PO ×3 (05:39→22:10)
[2019-12-17] MEDS: Ibuprofen 600 MG Tablet PO ×2 (05:39→12:42)
[2019-12-17] MEDS: Budesonide Respules 0.5 MG/2 ML AMPUL.NEB. INHALATION ×2 (06:49→19:31)
[2019-12-17] MEDS: Albuterol 2.5 MG/3 ML VIAL.NEB. INHALATION ×2 (06:49→19:31)
[2019-12-17 07:30] LABS: Bedside Glucose 106 mg/dL (70-110)
--- NOTE | 2019-12-17 09:35 | PCM.PN.HOSP ---
Patient Problems: Active and Suspected Problems (Last Updated 11/06/17 @ 11:03 by Avani Hernández) Opiate withdrawal (Acute) Bipolar disorder (Acute) Reason for Visit: opiate withdrawal Subjective: feeling better. still with itching, but improved with diphenhydramine. Vitals/I&O's: Vital Signs Temp Pulse Resp BP Pulse Ox 36.6 C 72 16 116/71 97 12/17/19 03:12 12/17/19 06:50 12/17/19 06:50 12/17/19 03:12 12/17/19 06:50 Oxygen Delivery Method Room Air Weight: 58.7 kg Body Mass Index (BMI) 21.5 Intake and Output for Last 24 Hours 12/15/19 12/16/19 12/17/19 23:59 23:59 23:59 Intake Total 300 / 300 Output Total 200 / 200 Balance 100 / 100 General: Alert, No apparent distress HEENT: Atraumatic, Normocephalic Oral: Moist Mucosa, No Gingival or Mucosal Lesions/ Ulcerations Neck: No Nodes, Trachea Midline Lungs: Clear to auscultation, Normal air movement, No rhonchi, No wheeze, No rales Cardiovascular: Regular rate, Regular Rhythm, Normal S1, Normal S2, No murmurs Abdomen: Bowel Sounds Present, Soft, Non Tender, Non-Distended, No Hepato-splenomegaly Extremities: No edema, No Calf Tenderness Psych/Mental Status: Normal Affect, Appropriate Laboratory Results 12/17/19 07:26: POC Glucose 106 Current Medications Acetaminophen (Tylenol) 500 mg PO Q4H PRN PRN PRN Reason: Temp > 100.4 F Al Hydroxide/Mg Hydroxide (Mylanta Ii) 30 ml PO Q6H PRN PRN PRN Reason: dyspesia Albuterol Sulfate (Ventolin Aerosols) 2.5 mg INHALATION Q2H PRN PRN PRN Reason: Dyspnea, wheezing Last Admin: 12/17/19 06:49 Dose: 2.5 mg Documented by: Bisacodyl (Dulcolax) 10 mg RECTAL DAILY PRN PRN Reason: Constipation Budesonide (Pulmicort Aerosol) 0.5 mg INHALATION Q12H.RT AYESHA Last Admin: 12/17/19 06:49 Dose: 0.5 mg Documented by: Buprenorphine HCl (Buprenorphine Hcl) 2 mg SL Q8H [facility]; Taper Stop: 12/18/19 21:29 Last Admin: 12/17/19 05:39 Dose: 2 mg Documented by: Clonidine (Catapres) 0.1 mg PO Q8H PRN PRN PRN Reason: RESTLESSNESS Last Admin: 12/17/19 03:40 Dose: 0.1 mg Documented by: Dextrose (D50w Syringe) 0 gm IV X1 PRN; Protocol PRN Reason: Hypoglycemia Diphenhydramine HCl (Benadryl) 25 mg PO Q6H PRN PRN Reason: ITCHING Last Admin: 12/17/19 05:39 Dose: 25 mg Documented by: Escitalopram Oxalate (Lexapro) 10 mg PO DAILY [facility] Last Admin: 12/16/19 09:55 Dose: 10 mg Documented by: Estradiol (Vivelle-Dot, Estraderm) 0.1 mg TRANSDERM. QWEEK [facility] Last Admin: 12/15/19 22:28 Dose: 0.1 mg Documented by: Famotidine (Pepcid) 20 mg PO BID [facility] Last Admin: 12/16/19 21:05 Dose: 20 mg Documented by: Fluticasone Propionate (Flonase Nasal [place]) 1 spray NASAL DAILY [facility] Last Admin: 12/16/19 09:58 Dose: 1 spray Documented by: Gabapentin (Neurontin) 300 mg PO Q8H PRN PRN PRN Reason: moderate to severe anxiety Glucagon () 1 mg IM .X1 PRN PRN Reason: Hypoglycemia Hydroxyzine Pamoate (Vistaril Pamoate Capsule) 50 mg PO Q6H PRN PRN PRN Reason: mild anxiety Last Admin: 12/16/19 21:32 Dose: 50 mg Documented by: Ibuprofen (Motrin) 600 mg PO Q8H PRN PRN PRN Reason: Pain Score 1-10/10 Last Admin: 12/17/19 05:39 Dose: 600 mg Documented by: [place] Carbonate ([place] Carbonate) 600 mg PO BID [facility] Last Admin: 12/16/19 21:03 Dose: 600 mg Documented by: Loperamide HCl (Imodium) 2 mg PO Q4H PRN PRN PRN Reason: LOOSE STOOLS Methocarbamol (Methocarbamol) 1,500 mg PO Q6H PRN PRN PRN Reason: MUSCLE SPASM Last Admin: 12/17/19 03:39 Dose: 1,500 mg Documented by: Metoclopramide HCl (Reglan) 5 mg PO Q6H PRN PRN Reason: NAUSEA Last Admin: 12/17/19 03:40 Dose: 5 mg Documented by: Nicotine (Nicoderm Cq (Pbkc)) 21 mg TRANSDERM. DAILY [facility] Last Admin: 12/16/19 09:56 Dose: 21 mg Documented by: Nutritional Formula (Lactose Free) (Ensure Enlive) 120 ml PO 4X/DAY [facility] Last Admin: 12/16/19 21:03 Dose: 120 ml Documented by: Ondansetron HCl (Zofran) 8 mg PO Q8H PRN PRN PRN Reason: NAUSEA Pantoprazole Sodium (Protonix) 40 mg PO QHS [facility] Last Admin: 12/16/19 21:03 Dose: 40 mg Documented by: Prochlorperazine Maleate (Compazine Tablet) 10 mg PO DAILY PRN PRN PRN Reason: NAUSEA Rizatriptan Benzoate (Maxalt) 10 mg PO .X1 PRN PRN PRN Reason: MIGRAINE SYMPTOMS Senna (Senokot) 2 tablet PO QHS PRN PRN PRN Reason: Constipation Last Admin: 12/17/19 03:40 Dose: 2 tablet Documented by: Sodium Chloride () 10 - 40 ml IV UD PRN PRN Reason: SALINE FLUSH Topiramate (Topamax) 100 mg PO QHS [facility] Last Admin: 12/16/19 21:03 Dose: 100 mg Documented by: Trazodone HCl (Desyrel) 100 mg PO QHS PRN PRN PRN Reason: INSOMNIA STROKE Vital Signs/Narrative: Vital Signs Pulse Resp Pulse Ox 12/17/19 06:50 72 16 97 Medical Necessity - Tobacco Use Smoking Status: Current every day smoker Tobacco Use: Cigarettes Assessment/Plan All Active Problems (Last Updated 11/06/17 @ 11:03 by Avani Hernández) Opiate withdrawal (Acute) Bipolar disorder (Acute) Preeclampsia (Acute) History of broken finger (Acute) Frequent UTI (Acute) Acute back pain with sciatica (Acute) 1. acute opiate withdrawal continue with buprenorphine taper. However, if patient starts having worsening itching or discontinued the buprenorphine altogether. And then treat her supportively. Patient inquired as to how she would be discharged from here. Told her that I would that case management regards to addressing how she would proceed if it would be directly to [facility] on inpatient side or to continue at a later point as outpatient. 2. Pruritus: Seem to be secondary to the buprenorphine. No evidence of any kind of rash at this time. Will just monitor for now but patient will be on diphenhydramine as needed. 3. VTE prophylaxis: Low risk. 4. constipation: miralax Plan for discharge on the . Inpatient E&M: 15834 Subs Hosp L2
--- NOTE | 2019-12-17 09:48 | CASEMGMT ---
Social Work Note Pt is RAMP pt. AKASH placed a call to Susan at [facility], left message that pt will need to be seen. AKAHS updated by RN that pt requesting her POA be notified. AKASH updated RN that Susan at [facility] will be seeing pt, can update POA if pt requests. Nathalia Mac MANAGER MATH, COMMERCIAL LENDING RELATIONSHIP MANAGER
[2019-12-17] MEDS: Polyethylene Glycol 3350 17 GM PACKET PO (10:27)
[2019-12-17] MEDS: Fluticasone 0.05% 1 SPRAY NASAL.SRY NASAL (10:28)
[2019-12-17] MEDS: Lithium Carbonate 300mg Capsule 600 MG PO ×2 (10:28→22:08)
[2019-12-17] MEDS: Escitalopram Oxalate 10 MG Tablet PO (10:29)
[2019-12-17] MEDS: Famotidine 20 MG Tablet PO ×2 (10:29→22:08)
[2019-12-17] MEDS: hydrOXYzine PAM 25 MG Capsule 50 MG PO ×2 (10:34→22:21)
--- NOTE | 2019-12-17 10:41 | NURSING ---
Pt asking to speak to older adult social work specialist regarding rewriting POA papers. This RN notified Nathalia Ijeoma BUSTOS that pt is requesting to speak with her.
[2019-12-17 12:47] LABS: Red Blood Cells-Urine 0 SEEN /hpf (0-5)
[2019-12-17 12:51] LABS: Color, Urine Yellow (Yellow); Glucose, Dipstick Normal (Normal); Ketone-Dipstick Negative (Negative); Leukocyte Esterase-Dipstick Negative /ul (Negative); Nitrite-Dipstick Negative (Negative); Occult Blood-Urine Negative /ul (Negative); Protein-Dipstick 15 mg/dl (Negative); Urine Bilirubin Dipstick Negative (Negative); Urine Clarity Clear (Clear); Urine Urobilinogen Normal (Normal)
[2019-12-17 13:06] LABS: Bacteria RARE /hpf (None Seen); Mucous, Urine RARE /hpf (<or=2+); Squamous Epithelial Cells - UA 0-5 SEEN /hpf (5-10); White Blood Cells 0-5 SEEN /hpf (0-5)
--- NOTE | 2019-12-17 13:31 | CHAPLAIN ---
Type of Pastoral Visit _x__ Initial Visit ___ Follow-up Visit ___ On-call Visit ___ General Patient Visit ___ Spiritual Assessment ___ Family Conference ___ Bereavement ___ Rapid Response ___ Code Blue ___ Other (describe below) Pastoral Care Referral From _x__ Patient ___ Family ___ Nurse ___ Physician ___ Parking Assistant ___ Grape Crusher ___ Other (describe below) Sacrament/Intervention ___ Active listening ___ Anointing ___ Jew ___ Bereavement ___ Communion ___ Shraddha exploration ___ ___ Life review _x__ Prayer ___ Reconciliation ___ Sacrament of Sick _x__ Supportive presence ___ Wedding ___ Other (describe below) Pastoral Comments this distribution analyst has met this patient previously when her family members were admitted to this hospital; pt remembers this distribution analyst; pt welcomes distribution analyst for support but is focused on receiving pain relief at this time for a broken tooth; pt has lunch tray untouched and is waiting to eat; pt welcomes prayer and would receive visit in the future for spiritual care support
--- NOTE | 2019-12-17 15:47 | CASEMGMT ---
Social Work Note SW received referral that pt would like to redo HCPOA/LW. SW is leaving for the day, pt is not being discharged today, SW will follow up with pt tomorrow regarding advanced directives. Nathalia Mac ONLINE CONTENT COORDINATOR, COBOL MAINFRAME DEVELOPER
--- NOTE | 2019-12-17 16:16 | ADDICTION ---
This social sciences instructor met with patient in her room to conduct full diagnostic assessment, ASAM assessment and to complete discharge planning. Patient reports that she plans to discharge tomorrow and wants to admit into residential treatment with [facility] upon discharge. She signed MATTHIAS for [facility] during this visit. This entry writer will provide unit social sciences instructor with completed assessment upon completion. [facility] discharge from [facility]. She was given instructions, admit time and list of appropriate belongings to bring into the facility. She reported that she understands the instructions and will admit into residential treatment tomorrow (12.17.2019). ASAM LOC: 4.0 Medically Managed Intensive Inpatient Services until discharge from hospital followed by 3.5 Clinically Managed High-Intensity Residential Services
--- NOTE | 2019-12-17 16:39 | NURSING ---
attempted to call ex- Jagdish Mayo to set of transportation for pt to get to [facility] at discharge. Jagdish did not answer phone and mailbox was full so this nurse was unable to leave message
[2019-12-17] MEDS: Pantoprazole Sodium 40 MG Tablet PO (22:09)
[2019-12-17] MEDS: Topiramate 100 MG Tablet PO (22:21)
[2019-12-18] MEDS: Ibuprofen 600 MG Tablet PO (06:31)
[2019-12-18] MEDS: hydrOXYzine PAM 25 MG Capsule 50 MG PO (06:32)
[2019-12-18] MEDS: Methocarbamol 750 MG Tablet 1500 MG PO (06:32)
[2019-12-18 06:39] VITALS: BP 113/66; PULSE 96; RESP 18; TEMP 37.4; O2SAT 95
[2019-12-18 07:00] VITALS: PULSE 94; RESP 18; O2SAT 98
[2019-12-18] MEDS: Budesonide Respules 0.5 MG/2 ML AMPUL.NEB. INHALATION (07:00)
[2019-12-18] MEDS: Albuterol 2.5 MG/3 ML VIAL.NEB. INHALATION (07:00)
[2019-12-18] MEDS: cloNIDine HCl 0.1 MG Tablet PO (07:33)
[2019-12-18] MEDS: proCHLORPERazine 5 MG Tablet 10 MG PO (07:34)
[2019-12-18 07:42] VITALS: BP 105/60; PULSE 104; RESP 18; TEMP 37.2; O2SAT 96
--- NOTE | 2019-12-18 08:02 | DCINST_ITS ---
- Discharge Diagnoses Current Active Problems: Current Active and Chronic Problems (Last Updated 11/06/17 @ 11:03 by Avani Hernández) Opiate withdrawal (Acute) Tobacco use (Chronic) Chronic back pain (Chronic) Pseudoseizures (Chronic) Bipolar disorder (Acute) You will use the following diet at home:: No restrictions Your food should be the consistency of: Regular Your liquids should be the consistency of: Regular/Thin Discharge Activity: Return to Normal Activity Allergies/Adverse Reactions: Allergies adhesive tape Allergy (Severe, Verified 12/15/19 14:54) Rash latex Allergy (Severe, Verified 12/15/19 14:54) Rash benzonatate [From Tessalon Perles] Allergy (Verified 12/15/19 14:54) Rash cephalexin [From Keflex] Allergy (Verified 12/15/19 14:54) Hives clindamycin Allergy (Verified 12/15/19 14:54) Anaphylaxis dicyclomine [From Bentyl] Allergy (Verified 12/15/19 14:54) Itching meloxicam [From Mobic] Allergy (Verified 12/15/19 14:54) Chest tightness metronidazole [From Flagyl] Allergy (Verified 12/15/19 14:54) Itching nifedipine [From Procardia] Allergy (Verified 12/15/19 14:54) Angioedema oseltamivir [From Tamiflu] Allergy (Verified 12/15/19 14:54) Hives Penicillins Allergy (Verified 12/15/19 14:54) Anaphylaxis prednisone Allergy (Verified 12/15/19 14:54) Rash progesterone Allergy (Verified 12/15/19 14:54) Hives -cream form only Sulfa (Sulfonamide Antibiotics) Allergy (Verified 12/15/19 14:54) Hives terbutaline [From Brethine] Allergy (Verified 12/15/19 14:54) Angioedema ondansetron [From Zofran (as hydrochloride)] Adverse Reaction (Verified 12/15/19 14:54) Other PT STATES IT MAKES ME CONSTIPATED Medications to take at Discharge Albuterol Inhaler [Ventolin Hfa] 2 puff INHALATION DAILY PRN PRN 02/05/17 No122/Iron/Folic Acid [ Multi Tablet] 1 ea PO DAILY 04/29/17 fluticasone propionate 110 mcg/actuation HFA aerosol inhaler 2 puff INHALATION BID #12 g 12/12/17 Omeprazole 40 mg PO QHS 06/22/18 Polyethylene Glycol 3350 [Miralax] 17 gm PO PRN PRN 06/22/18 Fluticasone 0.05% [Flonase Nasal [place]] 1 spray NASAL DAILY #1 bottle 10/16/18 [place] Carbonate 600 mg PO BID 10/16/18 prochlorperazine maleate 10 mg tablet 10 mg PO PRN PRN 01/30/19 ibuprofen 600 mg tablet 600 mg PO Q8H #90 tab 05/08/19 Estradiol 1 patch TOPICAL QWEEK 09/03/19 Rizatriptan Benzoate [Rizatriptan] 10 mg PO BID 09/03/19 cholecalciferol (vitamin D3) 25 mcg (1,000 unit) capsule 2 cap PO DAILY 11/22/19 escitalopram oxalate 10 mg tablet 1 tab PO DAILY 11/22/19 topiramate 50 mg tablet 1 tab PO DAILY 11/22/19 Topiramate [Topamax] 100 mg PO DAILY 12/15/19 Primary Care Physician: Care Physician,No Primary [Primary Care Provider] - Test Results: Test results from this visit will be discussed in further detail at your follow- up appointment, if applicable. Proposed Discharge Date: 12/18/19
--- NOTE | 2019-12-18 08:03 | DS.PCM_ITS ---
Discharge Date and Diagnosis - Problem List Patient Problems: Active and Suspected Problems (Last Updated 11/06/17 @ 11:03 by Avani Hernández) Opiate withdrawal (Acute) Date of Admission: 12/15/19 Date of Discharge: 12/18/19 - Primary Discharge Diagnosis Acute Problems: Active Problems (Last Updated 11/06/17 @ 11:03 by Avani Hernández) Opiate withdrawal (Acute) Bipolar disorder (Acute) - Secondary Discharge Diagnosis Chronic Problems: Chronic Problems (Last Updated 11/06/17 @ 11:03 by Avani Hernández) PTSD (post-traumatic stress disorder) (Chronic) Bipolar disorder (Chronic) Anxiety disorder (Chronic) Sacroiliitis, not elsewhere classified (Chronic) Sacrococcygeal disorders, not elsewhere classified (Chronic) Tobacco use (Chronic) Chronic back pain (Chronic) Pseudoseizures (Chronic) Tunnel vision (Chronic) Stomach ulcer (Chronic) Seizures (Chronic) Deafness in left ear (Chronic) Migraines (Chronic) IBS (irritable bowel syndrome) (Chronic) GERD (gastroesophageal reflux disease) (Chronic) Chronic bronchitis (Chronic) Asthma (Chronic) Hospital Course and Treatment Operations: None Procedures: None Summary of Care Provided: The patient is a 24 year old F presents with seeking treatment for opiate withdrawal. Patient presented on the with abdominal pain, cramping, ge neralized body aches and pains midst other symptoms. Patient has been using heroin, cocaine, Percocet. Patient was subsequently admitted and started on a buprenorphine taper. Patient also had other medications to help with other somatic complaints. Patient's complaint was itching that she would take with the buprenorphine. That would be relieved with diphenhydramine. Patient did not develop any rash. Patient start developing a migraine last night and today vomited. Patient states that this is typical with her migraine and usually takes Maxalt as well as Compazine at home. Offered to monitor the patient here longer but she declines preferring to be discharged to the [facility]. Patient will be discharged this morning and then patient will go to the [facility] inpatient program after discharge. [] Patient Problems: Active and Suspected Problems (Last Updated 11/06/17 @ 11:03 by Avani Hernández) Opiate withdrawal (Acute) - Physical Exam Vitals/I&O's: Vital Signs Temp Pulse Resp BP Pulse Ox 37.2 C 104 H 18 105/60 96 12/18/19 07:42 05/27/20 07:42 12/18/19 07:42 12/18/19 07:42 12/18/19 07:42 Oxygen Delivery Method Room Air Weight: 58.7 kg Body Mass Index (BMI) 21.5 Intake and Output for Last 24 Hours 12/16/19 12/17/19 12/18/19 23:59 23:59 23:59 Intake Total 1100 / 1300 500 / 500 Output Total 400 / 400 350 / 350 Balance 700 / 900 150 / 150 General: Alert, No apparent distress HEENT: Atraumatic, Normocephalic Psych/Mental Status: Normal Affect, Appropriate Laboratory Results 12/17/19 12:46: Urine Color Yellow, Urine Clarity Clear, Urine pH 7.0, Ur Specific [place] 1.010, Urine Protein 15 H, Urine Glucose (UA) Normal, Urine Ketones Negative, Urine Occult Blood Negative, Urine Nitrite Negative, Urine Bilirubin Negative, Urine Urobilinogen Normal, Ur Leukocyte Esterase Negative, Urine RBC 0 SEEN, Urine WBC 0-5 SEEN, Ur Squamous Epith Cells 0-5 SEEN, Urine Bacteria RARE, Urine Mucus RARE Current Medications Acetaminophen (Tylenol) 500 mg PO Q4H PRN PRN PRN Reason: Temp > 100.4 F Al Hydroxide/Mg Hydroxide (Mylanta Ii) 30 ml PO Q6H PRN PRN PRN Reason: dyspesia Albuterol Sulfate (Ventolin Aerosols) 2.5 mg INHALATION Q2H PRN PRN PRN Reason: Dyspnea, wheezing Last Admin: 12/18/19 07:00 Dose: 2.5 mg Documented by: Bisacodyl (Dulcolax) 10 mg RECTAL DAILY PRN PRN Reason: Constipation Budesonide (Pulmicort Aerosol) 0.5 mg INHALATION Q12H.RT AYESHA Last Admin: 12/18/19 07:00 Dose: 0.5 mg Documented by: Buprenorphine HCl (Buprenorphine Hcl) 2 mg SL Q12H AYES[facility]; Taper Stop: 12/18/19 21:29 Last Admin: 12/17/19 22:07 Dose: 2 mg Documented by: Clonidine (Catapres) 0.1 mg PO Q8H PRN PRN PRN Reason: RESTLESSNESS Last Admin: 12/18/19 07:33 Dose: 0.1 mg Documented by: Dextrose (D50w Syringe) 0 gm IV X1 PRN; Protocol PRN Reason: Hypoglycemia Diphenhydramine HCl (Benadryl) 25 mg PO Q6H PRN PRN Reason: ITCHING Last Admin: 12/17/19 22:10 Dose: 25 mg Documented by: Escitalopram Oxalate (Lexapro) 10 mg PO DAILY [facility] Last Admin: 12/17/19 10:29 Dose: 10 mg Documented by: Estradiol (Vivelle-Dot, Estraderm) 0.1 mg TRANSDERM. QWEEK [facility] Last Admin: 12/15/19 22:28 Dose: 0.1 mg Documented by: Famotidine (Pepcid) 20 mg PO BID [facility] Last Admin: 12/17/19 22:08 Dose: 20 mg Documented by: Fluticasone Propionate (Flonase Nasal [place]) 1 spray NASAL DAILY [facility] Last Admin: 12/17/19 10:28 Dose: 1 spray Documented by: Gabapentin (Neurontin) 300 mg PO Q8H PRN PRN PRN Reason: moderate to severe anxiety Glucagon () 1 mg IM .X1 PRN PRN Reason: Hypoglycemia Hydroxyzine Pamoate (Vistaril Pamoate Capsule) 50 mg PO Q6H PRN PRN PRN Reason: mild anxiety Last Admin: 12/18/19 06:32 Dose: 50 mg Documented by: Ibuprofen (Motrin) 600 mg PO Q8H PRN PRN PRN Reason: Pain Score 1-10/10 Last Admin: 12/18/19 06:31 Dose: 600 mg Documented by: Lidocaine HCl (Xylocaine Viscous) 5 ml PO Q3H PRN PRN Reason: dental pain Last Admin: 12/17/19 12:30 Dose: 5 ml Documented by: [place] Carbonate ([place] Carbonate) 600 mg PO BID [facility] Last Admin: 12/17/19 22:08 Dose: 600 mg Documented by: Loperamide HCl (Imodium) 2 mg PO Q4H PRN PRN PRN Reason: LOOSE STOOLS Methocarbamol (Methocarbamol) 1,500 mg PO Q6H PRN PRN PRN Reason: MUSCLE SPASM Last Admin: 12/18/19 06:32 Dose: 1,500 mg Documented by: Metoclopramide HCl (Reglan) 5 mg PO Q6H PRN PRN Reason: NAUSEA Last Admin: 12/17/19 12:43 Dose: 5 mg Documented by: Nicotine (Nicoderm Cq (Pbkc)) 21 mg TRANSDERM. DAILY [facility] Last Admin: 12/17/19 10:29 Dose: 21 mg Documented by: Nutritional Formula (Lactose Free) (Ensure Enlive) 120 ml PO 4X/DAY [facility] Last Admin: 12/17/19 22:25 Dose: 120 ml Documented by: Ondansetron HCl (Zofran) 8 mg PO Q8H PRN PRN PRN Reason: NAUSEA Pantoprazole Sodium (Protonix) 40 mg PO QHS [facility] Last Admin: 12/17/19 22:09 Dose: 40 mg Documented by: Polyethylene Glycol (Miralax) 17 gm PO DAILY [facility] Last Admin: 12/17/19 10:27 Dose: 17 gm Documented by: Prochlorperazine Maleate (Compazine Tablet) 10 mg PO DAILY PRN PRN PRN Reason: NAUSEA Last Admin: 12/18/19 07:34 Dose: 10 mg Documented by: Rizatriptan Benzoate (Maxalt) 10 mg PO .X1 PRN PRN PRN Reason: MIGRAINE SYMPTOMS Senna (Senokot) 2 tablet PO QHS PRN PRN PRN Reason: Constipation Last Admin: 12/17/19 17:38 Dose: 2 tablet Documented by: Sodium Chloride () 10 - 40 ml IV UD PRN PRN Reason: SALINE FLUSH Topiramate (Topamax) 100 mg PO QHS [facility] Last Admin: 12/17/19 22:21 Dose: 100 mg Documented by: Trazodone HCl (Desyrel) 100 mg PO QHS PRN PRN PRN Reason: INSOMNIA Discharge Diet: No Restrictions Discharge Activity: Return to Normal Activity Home Medications: Medications to take at Discharge Albuterol Inhaler [Ventolin Hfa] 2 puff INHALATION DAILY PRN PRN 02/05/17 No122/Iron/Folic Acid [ Multi Tablet] 1 ea PO DAILY 04/29/17 fluticasone propionate 110 mcg/actuation HFA aerosol inhaler 2 puff INHALATION BID #12 g 12/12/17 Omeprazole 40 mg PO QHS 06/22/18 Polyethylene Glycol 3350 [Miralax] 17 gm PO PRN PRN 06/22/18 Fluticasone 0.05% [Flonase Nasal [place]] 1 spray NASAL DAILY #1 bottle 10/16/18 [place] Carbonate 600 mg PO BID 10/16/18 prochlorperazine maleate 10 mg tablet 10 mg PO PRN PRN 01/30/19 ibuprofen 600 mg tablet 600 mg PO Q8H #90 tab 05/08/19 Estradiol 1 patch TOPICAL QWEEK 09/03/19 Rizatriptan Benzoate [Rizatriptan] 10 mg PO BID 09/03/19 cholecalciferol (vitamin D3) 25 mcg (1,000 unit) capsule 2 cap PO DAILY 11/22/19 escitalopram oxalate 10 mg tablet 1 tab PO DAILY 11/22/19 topiramate 50 mg tablet 1 tab PO DAILY 11/22/19 Topiramate [Topamax] 100 mg PO DAILY 12/15/19 Primary Care Physician: Care Physician,No Primary [Primary Care Provider] - Disposition: Home Minutes spent on discharge:: 28 Patient Condition:: Good Medical Necessity - Tobacco Use Smoking Status: Current every day smoker Tobacco Use: Cigarettes Meaningful Use Info Meaningful Use Diagnoses (Choose all that apply): None applicable Inpatient E&M: 03540 Disch Hosp
[2019-12-18] MEDS: Rizatriptan Benzoate 10 MG Tablet PO (08:51)
[2019-12-18] MEDS: Buprenorphine HCl 2 MG TAB.SUBL SL (08:51)
--- NOTE | 2019-12-18 09:08 | CASEMGMT ---
Social Work Note SW in to speak with pt regarding advanced directives. Pt completed advanced directives. Original provided to pt, copy placed on pt's chart. Nathalia Mac CABLE FORMER, DYE REEL OPERATOR HELPER
[2019-12-18 09:15] VITALS: BP 105/60; PULSE 104; RESP 18; TEMP 37.2; O2SAT 96
== END 2019-12-18 09:05 | disposition home or self-care (01) | DRG 773 ==
LOC: ED 16:49 → MS3 12-16 07:18
PROVIDERS: Admitting Provider Family Medicine; Emergency Provider Emergency Medicine
DX: F11.23 Opioid dependence with withdrawal (principal); F14.10 Cocaine abuse, uncomplicated; F31.9 Bipolar disorder, unspecified; M54.30 Sciatica, unspecified side; G89.29 Other chronic pain; E87.6 Hypokalemia; L29.9 Pruritus, unspecified; T40.4X5A Adverse effect of other synthetic narcotics, initial encounter; Y92.9 Unspecified place or not applicable; F25.9 Schizoaffective disorder, unspecified; F43.12 Post-traumatic stress disorder, chronic; F41.9 Anxiety disorder, unspecified; J42 Unspecified chronic bronchitis; K58.9 Irritable bowel syndrome, unspecified; G43.909 Migraine, unspecified, not intractable, without status migrainosus; R56.9 Unspecified convulsions; J45.909 Unspecified asthma, uncomplicated; H91.92 Unspecified hearing loss, left ear; K21.9 Gastro-esophageal reflux disease without esophagitis; F17.210 Nicotine dependence, cigarettes, uncomplicated; Z79.899 Other long term (current) drug therapy; Z87.11 Personal history of peptic ulcer disease; Z90.710 Acquired absence of both cervix and uterus; Z98.51 Tubal ligation status
CPT/HCPCS: 80053; 80178; 80307; 80320; 81001; 82962; 83735; 84703; 85025; 86703; 86706; 86803; 87086; 87088; 93005; 94640; 96360; 96361; 97802; 99218; 99251; 99281; 99406; H0012; J7120; A4216; G0378; G0463; G0480

== ENCOUNTER 2020-05-23 00:18 | Emergency (ER) | payer MEDICAID, SELFPAY ==
[2019-12-15 17:42] VITALS: BMI 21.5
[2020-05-23 00:19] VITALS: BP 128/72; PULSE 89; RESP 16; TEMP 36.8; O2SAT 98; BMI 20.9
--- NOTE | 2020-05-23 00:30 | ED.VIS.GEN ---
History of Present Illness Chief Complaint: Abd Pain Informant: Patient Narrative: 25-year-old female with extensive past medical history including pseudoseizures, bipolar, PTSD, sacroiliitis, opioid abuse presents with concern for left lower quadrant pain. States it began approximate 1 hour ago. Began suddenly. States it is sharp in nature. Admits to nausea without vomiting. Denies any vaginal bleeding or discharge. Patient no longer gets her periods. Had a partial hysterectomy. States that she did would go into early menopause given ligation of her arteries to her ovaries. Past Medical History - Allergies and Home Meds Allergies/Adverse Reactions: Allergies adhesive tape Allergy (Severe, Verified 12/15/19 14:54) Rash latex Allergy (Severe, Verified 05/23/20 00:23) Rash benzonatate [From Tessalon Perles] Allergy (Verified 05/23/20 00:23) Rash cephalexin [From Keflex] Allergy (Verified 05/23/20 00:23) Hives clindamycin Allergy (Verified 05/23/20 00:23) Anaphylaxis dicyclomine [From Bentyl] Allergy (Verified 05/23/20 00:23) Itching meloxicam [From Mobic] Allergy (Verified 05/23/20 00:23) Chest tightness metronidazole [From Flagyl] Allergy (Verified 05/23/20 00:23) Itching nifedipine [From Procardia] Allergy (Verified 05/23/20 00:23) Angioedema oseltamivir [From Tamiflu] Allergy (Verified 05/23/20 00:23) Hives Penicillins Allergy (Verified 05/23/20 00:23) Anaphylaxis prednisone Allergy (Verified 12/15/19 14:54) Rash progesterone Allergy (Verified 12/15/19 14:54) Hives -cream form only Sulfa (Sulfonamide Antibiotics) Allergy (Verified 12/15/19 14:54) Hives terbutaline [From Brethine] Allergy (Verified 12/15/19 14:54) Angioedema ondansetron [From Zofran (as hydrochloride)] Adverse Reaction (Verified 12/15/19 14:54) Other PT STATES IT MAKES ME CONSTIPATED Primary Care Physician: Care Physician,No Primary [NON-STAFF] - Prior records reviewed: Yes Past Medical History: - - psudoseziures, PTSD, Bipolar Surgical History: hysterectomy, - - Bilateral tubal ligation with eventual hysterectomy, right knee arthroscopic surgery with meniscal tear repair and ACL repair. Lives: Spouse/ Significant Other Smoking Status: Current every day smoker Alcohol: None Drugs: - - History of opiod abuse - Family History Maternal Family History: Family History (Last Updated 11/06/17 @ 11:09 by Avani Hernández) Mother Alcoholism Asthma Cancer Anxiety and depression Seizures Father Anxiety and depression Alcoholism Seizures Diabetes Myocardial infarction, Onset Age: 39 Grandmother Cancer Thyroid disorder COPD (chronic obstructive pulmonary disease) Hypertension Hyperlipemia Asthma Sister Cystic fibrosis Asthma Brother Cystic fibrosis Mental retardation Aunt Breast cancer Aunt Cancer Unknown Cancer Family History: Reports: Cancer, Pulmonary Disease, Seizures Paternal Family History: Family History (Last Updated 11/06/17 @ 11:09 by Avani Hernández) Mother Alcoholism Asthma Cancer Anxiety and depression Seizures Father Anxiety and depression Alcoholism Seizures Diabetes Myocardial infarction, Onset Age: 39 Grandmother Cancer Thyroid disorder COPD (chronic obstructive pulmonary disease) Hypertension Hyperlipemia Asthma Sister Cystic fibrosis Asthma Brother Cystic fibrosis Mental retardation Aunt Breast cancer Aunt Cancer Unknown Cancer Family History: Reports: Diabetes, High Cholesterol, Heart Disease, Hypertension, Seizures Review of Systems General: Denies: Chills, Fever, Sweats Eyes: Denies: Visual changes - bilaterally, Diplopia ENT: Denies: Rhinorrhea, Sore throat Cardiovascular: Denies: Chest pain, Palpitations Respiratory: Denies: Dyspnea, Cough, Dyspnea on exertion Gastrointestinal: Reports: Abdominal pain. Denies: Nausea, Vomiting, Diarrhea, Melena, Hematochezia Genitourinary: Denies: Dysuria, Hematuria, Frequency Musculoskeletal: Denies: Back pain, Extremity Pain Skin: Denies: Rash, Wounds Neurological: Denies: Headache, Weakness, Numbness Physical Exam Vital Signs/Narrative: Vital Signs Temp Pulse Resp BP Pulse Ox 05/23/20 00:19 98.2 F 89 16 128/72 H 98 General: Well nourished, Well developed, No Acute Distress Head: Normocephalic, Atraumatic Eyes: Perrl, EOMI ENT: Moist mucous membranes, No rhinorrhea Neck: Supple, Nontender Cardiovascular: Regular rate, Regular rhythm, No murmurs Respiratory: No distress, CTA bilaterally, Chest nontender Abdomen: Soft, Nondistended, Normal bowel sounds, - - TTP in the left pelvis. No rebound or rigidity. Back: Nontender, Normal Inspection Extremities: Nontender, No edema Skin: Normal color, No rash Neurological: Alert, Oriented x3, Cranial nerves II-XII grossly intact, Normal Strength, Normal Sensation Psychological: Normal affect, Normal Mood Diagnostic/Tx/Re-eval Clinical Impression(s) from Imaging Studies Transvaginal US 05/23/20 01:53 IMPRESSION: Unremarkable study. Electronically Signed: Arlen Ding, at 5:00 EDT Tel , Service support , Laboratory Data 05/23/20 05/23/20 05/23/20 00:25 00:25 00:55 WBC 8.6 RBC 4.58 Hgb 14.1 Hct 41.6 MCV 90.8 MCH 30.8 MCHC 33.9 RDW Std Deviation 39.0 RDW Coeff of Jo 11.8 Plt Count 191 MPV 11.3 Immature Gran % (Auto) 0.100 Neut % (Auto) 45.1 L Lymph % (Auto) 41.3 H Schleicher % (Auto) 7.3 Eos % (Auto) 5.0 Baso % (Auto) 1.2 H Absolute Neuts (auto) 3.9 Absolute Lymphs (auto) 3.57 Nucleated RBC % 0 Sodium 140 Potassium 3.3 L Chloride 109 H Carbon Dioxide 27.0 Anion Gap 4 L BUN 20 H Creatinine 0.86 Estim Creat Clear Calc 92.28 Est GFR (MDRD) Af Amer 102 Est GFR (MDRD) Non-Af 85 BUN/Creatinine Ratio 23.2 H Glucose 94 Calcium 8.7 Total Bilirubin 0.40 AST 19 ALT 23 Alkaline Phosphatase 93 Total Protein 7.8 Albumin 4.2 Globulin 3.6 Albumin/Globulin Ratio 1.2 Urine Color Yellow Urine Clarity Clear Urine pH 6.5 Ur Specific [place] 1.015 Urine Protein 15 H Urine Glucose (UA) Normal Urine Ketones Negative Urine Occult Blood Negative Urine Nitrite Negative Urine Bilirubin Negative Urine Urobilinogen Normal Ur Leukocyte Esterase Negative Urine RBC 0 SEEN Urine WBC 0 SEEN Ur Squamous Epith Cells 5-10 SEEN Urine Bacteria 0 SEEN Urine Mucus 0 SEEN Urine Test Negative - Medical Decision Making Patient appears well and nontoxic. Complaining of pain in her left pelvis. negative. Lab work within normal limits other than a mild hypokalemia. Patient was advised on high potassium foods to include in her diet. Patient was given Toradol. Patient states that she was having continued pain and was offered Tylenol which she declined. Long discussion was had with the patient that narcotics would not be appropriate in this setting given her history of abuse and withdrawal. Ultrasound shows no acute process. Patient will be discharged home in stable condition with recommendation to follow-up with her [employer]. Patient agreeable and discharged home in stable condition. Impression: 1. Left pelvic pain ED Disposition - Plan for ED Patient: Disposition: Home or Assisted Living Instructions: ED Abdominal Pain Unkn Cause Fem Prescriptions: Naproxen [Naprosyn] 500 mg PO BID #14 tab Prescription Printed Additional Instructions: Please make appointment to be seen by you OBGYN in the next 2-3 days.
[2020-05-23] MEDS: Ketorolac 15 MG/ML Vial IV (00:37)
[2020-05-23 00:38] LABS: Absolute Lymphocyte Count 3.57 X10^3/uL (0.83-4.51); Absolute Neutrophil Count 3.9 X10^3/uL (2.0-7.7); Basophil% 1.2 % (0-1); Eosinophil# 0.43 X10^3/uL; Hematocrit 41.6 % (37-47); Hemoglobin 14.1 g/dL (12.0-15.0); Lymphocyte # 3.57 X10^3/ul (4.0); Lymphocyte % 41.3 % (19-41); Mean Corp Hgb Conc 33.9 g/dL (32-36); Mean Corpuscular Hgb 30.8 pg (27.0-32.0); Mean Corpuscular Volume 90.8 fL (81-99); Mean Platelet Vol. 11.3 fl (6.2-12.0); Monocyte# 0.63 X10^3/uL; Monocyte% 7.3 % (0-10); NRBC Flagged by Analyzer 0 % (0-5); Neutrophil % 45.1 % (47-70); Platelet Count 191 K/mm3 (150-450); RBC Distribution Width CV 11.8 % (11.6-14.6); Red Blood Count 4.58 M/mm3 (4.2-5.4); White Blood Count 8.6 K/mm3 (4.4-11.0)
[2020-05-23 00:52] LABS: ALB/GLOB Ratio 1.2 RATIO (0.9-2.4); AST(SGOT) 19 U/L (15-37); Alanine Aminotransfer ALT/SGPT 23 U/L (13-56); Albumin, Serum 4.2 g/dL (3.2-5.0); Alkaline Phosphatase 93 U/L (45-117); Anion Gap 4 (5-15); BUN 20 mg/dL (7-18); BUN/Creat Ratio 23.2 RATIO (10-20); Calcium,Total 8.7 mg/dL (8.5-10.1); Chloride 109 mmol/L (98-107); Creatinine, Serum 0.86 mg/dL (0.55-1.02); EST Glomerular Filtration Rate 85 mL/min (>60); Est Glom Filt Rate - Afr Amer 102 mL/min (>60); Estimated Creatinine Clearance 92.28 ml/min; Globulin 3.6 g/dL (2.2-4.2); Glucose 94 mg/dL (74-106); Potassium 3.3 mmol/L (3.5-5.1); Protein, Total 7.8 g/dL (6.4-8.2); Sodium Level 140 mmol/L (136-145)
[2020-05-23 01:32] LABS: Bacteria 0 SEEN /hpf (None Seen); Color, Urine Yellow (Yellow); Glucose, Dipstick Normal (Normal); Ketone-Dipstick Negative (Negative); Leukocyte Esterase-Dipstick Negative /ul (Negative); Mucous, Urine 0 SEEN /hpf (<or=2+); Nitrite-Dipstick Negative (Negative); Occult Blood-Urine Negative /ul (Negative); Protein-Dipstick 15 mg/dl (Negative); Red Blood Cells-Urine 0 SEEN /hpf (0-5); Specific Gravity, Urine 1.015 (1.002-1.030); Urine Bilirubin Dipstick Negative (Negative); Urine Clarity Clear (Clear); Urine Urobilinogen Normal (Normal); Urine pH 6.5 (5.0 - 8.0); White Blood Cells 0 SEEN /hpf (0-5)
[2020-05-23 01:35] LABS: Internal QC Validated? YES +Cl - CLEAR BKGD; Pregnancy, Urine Negative Negative
[2020-05-23 01:41] LABS: Squamous Epithelial Cells - UA 5-10 SEEN /hpf (5-10)
--- NOTE | 2020-05-23 01:53 | US_ITS ---
STUDY: ULTRASOUND TRANSVAGINAL CLINICAL: Female, 25 years old. LLQ PAIN TECHNIQUE: Transvaginal COMPARISON: None. FINDINGS: The uterus has been removed. Normal left ovary, measuring 2.5 x 1.9 x 2.4 cm. There are multiple follicles without a dominant cyst. Normal right ovary, measuring 3.5 x 2.5 x 2.5 cm. There are multiple follicles without a dominant cyst. There is no free fluid in the pelvis. Polycystic ovary disease: No. US/Transvaginal Non- IMPRESSION: Unremarkable study. Electronically Signed: Arlen Ding, at 5:00 EDT Tel , Service support ,
[2020-05-23 03:10] VITALS: BP 91/54; PULSE 84; RESP 16; O2SAT 99
--- NOTE | 2020-05-23 04:56 | ED.RN ---
Addendum entered by Jeffrey Villarreal 05/23/20 05:16: given information for patient advocate at this time Original Note: called and updated on patient condition and status at this time
[2020-05-23 05:15] VITALS: PULSE 76; RESP 16; O2SAT 98
--- NOTE | 2020-05-23 05:15 | ED.RN ---
patient given discharge instructions and expressing verbal understanding of care and discharge instructions
== END 2020-05-23 05:17 | disposition home or self-care (01) ==
PROVIDERS: Emergency Provider Emergency Medicine; PCP Student in an Organized Health Care Education/Training Program
DX: R10.2 Pelvic and perineal pain (principal); F17.200 Nicotine dependence, unspecified, uncomplicated
CPT/HCPCS: 76830; 80053; 81001; 81025; 85025; 93976; 96374; 99282; A4216

== ENCOUNTER 2021-08-12 13:29 | Outpatient (CLI) | payer MEDICAID, SELFPAY ==
--- NOTE | 2021-08-12 13:39 | VDLE_ITS ---
Reason For Study: Right lower pain RIGHT GSV is normal. CFV is compressible, spontaneous, phasic, competent and demonstrates normal augmentation. FV is compressible, spontaneous, phasic, competent and demonstrates normal augmentation. POP V is compressible, spontaneous, phasic, competent and demonstrates normal augmentation. T/P Trunk is compressible. PTV is compressible. RT PerV is compressible. Procedure This is a venous duplex using B-mode, color flow and spectral Doppler. Exam performed in department. A preliminary report was called and/or faxed to Debbie. VL/Venous Duplex US, Unilateral Interpretation Summary Deep veins of the right lower extremity are patent and compressible segmentally . There is no evidence of right lower extremity deep vein thrombosis. Valvular competence cruz ears intact within the proximal deep venous system on the right . The right great saphenous vein a ppears patent and compressible segmentally. Ordering Physician: Ragini Lewis Performed By: Nathalia Luis RVT
== END 2021-08-12 23:59 | disposition short-term general hospital (02) ==
LOC: CVS 13:37
PROVIDERS: Referring Provider Physician Assistant; Visit Provider Physician Assistant
DX: M79.661 Pain in right lower leg (principal)
CPT/HCPCS: 93971

== ENCOUNTER → 2021-11-26 | Outpatient (CLI) | payer MEDICAID, SELFPAY ==
[2021-11-26] VITALS (8 sets, daily range): BP systolic 101–128; BP diastolic 57–77; PULSE 68–97; RESP 16–20; TEMP 36.9; O2SAT 98–100; BMI 24.2
--- NOTE | 2021-11-26 12:16 | CT_ITS ---
EXAM: CT CHEST WITHOUT INTRAVENOUS CONTRAST CLINICAL INDICATION: CHEST PAIN -- OVER READ ONLY -- PHYSICAL SCIENCE AIDE READ CORONARY ARTERIES TECHNIQUE: Helically acquired images were obtained of the chest without intravenous contrast. This CT exam was performed using one or more of the following dose reduction techniques: automated exposure control, adjustment of the mA and/or kV according to patient size, and/or use of iterative reconstruction technique. This report was created using [employer] report generation technology. RADIATION DOSE: CTDIvol = 23.41 mGy, DLP = 1398.12 mGy-cm COMPARISON: None. FINDINGS: LUNGS AND PLEURAL SPACES: Mild scarring of the lingula. No mass. No pleural effusion or thickening. No pneumothorax. Lungs incompletely visualized according to protocol. HEART: Overread only for noncardiac structures. Coronary arteries and calcium scoring performed by cardiology service. Heart size is normal. No pericardial effusion. MEDIASTINUM: Unremarkable. No mediastinal or hilar adenopathy. Esophagus is unremarkable. No hiatal hernia. THYROID: Unremarkable. No thyroid lesions. BONES/JOINTS: Unremarkable. No suspicious lytic or blastic abnormality. VASCULATURE: Unremarkable. Thoracic aorta is non-dilated. IMPRESSION: Overread only for noncardiac structures. Coronary arteries and calcium scoring performed by cardiology service. No incidental clinically significant findings. Electronically Signed: Harpal Cohn MD ([place]) at 18:13 EDT Reading Location ID and State: [address] [place] [address] , Service support , EXAM: CT CHEST WITHOUT INTRAVENOUS CONTRAST CLINICAL INDICATION: CHEST PAIN -- OVER READ ONLY -- PHYSICAL SCIENCE AIDE READ CORONARY ARTERIES TECHNIQUE: Helically acquired images were obtained of the chest without intravenous contrast. This CT exam was performed using one or more of the following dose reduction techniques: automated exposure control, adjustment of the mA and/or kV according to patient size, and/or use of iterative reconstruction technique. This report was created using [employer] report [employer]™ technology. RADIATION DOSE: CTDIvol = 23.41 mGy, DLP = 1398.12 mGy-cm COMPARISON: None. FINDINGS: LUNGS AND PLEURAL SPACES: Mild scarring of the lingula. No mass. No pleural effusion or thickening. No pneumothorax. Lungs incompletely visualized according to protocol. HEART: Overread only for noncardiac structures. Coronary arteries and calcium scoring performed by cardiology service. Heart size is normal. No pericardial effusion. MEDIASTINUM: Unremarkable. No mediastinal or hilar adenopathy. Esophagus is unremarkable. No hiatal hernia. THYROID: Unremarkable. No thyroid lesions. BONES/JOINTS: Unremarkable. No suspicious lytic or blastic abnormality. VASCULATURE: Unremarkable. Thoracic aorta is non-dilated. CT/Limited Chest CT w/CCTA IMPRESSION: Overread only for noncardiac structures. Coronary arteries and calcium scoring performed by cardiology service. No incidental clinically significant findings. Electronically Signed: Harpal Cohn MD ([place]) at 18:13 EDT ,
[2021-11-26] MEDS: Metoprolol Tartrate 5 MG/5 ML Vial IV ×3 (12:40→12:57)
[2021-11-26] MEDS: Nitroglycerin SL (ED/IMG/CATH) 0.4 MG TABLET SL (13:11)
--- NOTE | 2021-11-26 15:46 | CA.SCORE ---
Calcium Scoring Date of Study:: 11/26/21 Coronary Calcium Scoring: High-resolution Computed Tomographic imaging of the chest was performed on 11/26/2021 with particular attention paid to the coronary arteries. Images from the examination were analyzed for the presence and extent of coronary artery calcification , using coronary calcium quantification software. The patient tolerated the procedure well and there were no complications. The results of the coronary calcification analysis are provided below. Findings Coronary Artery Left Main (LM): 0 Left Anterior Descending (LAD): 0 Left Circumflex (LCX): 0 Right Coronary Artery (RCA): 0 Total Agatston Score: 0 Percentile Ranking: According to prepublished reference tables approximately 50% of patients of the same gender/similar age had the same/lower scores. Calcium Scoring Interpretation: 0 No identifiable atherosclerotic plaque. Very low cardiovascular disease risk. <5% chance of presence coronary artery disease A Negative Examination 1-10 Minimal Plaque burden. Significant coronary artery disease very unlikely. 11-100 Mild plaque burden. Likely mild or minimal coronary atherosclerosis. 101-400 Moderate plaque burden Moderate non-obstructive coronary artery disease highly likely. Over 400 Extensive plaque burden. High likelihood of at least one significant coronary stenosis (>50% diameter) Calcium Score: 0 Negative Examination Conclusion: Continue already cardiovascular risk factor evaluation and care as deemed appropriate. This note was generated using a voice recognition system and there may be incorrect words, spelling or punctuation that were not noted when reviewing the office note prior to saving.
--- NOTE | 2021-11-26 16:09 | CCTA.WCONT ---
CCTA w/Cont Coronary Arteries Date of Study:: 11/26/21 Chest Pain Consent:: Per Patient The patient underwent high-resolution CT imaging of the chest on 11-26-2021 with particular attention to the coronary arteries. The images were analyzed for the presence and extent of coronary calcification using coronary calcium quantification software and coronary artery disease. The patient tolerated the procedure well with no complications reported. LEFT MAIN CORONARY ARTERY: The left main coronary artery is a large vessel giving rise to the left anterior descending and left circumflex coronary arteries. It appears to be patent with no obvious angiographic evidence of atherosclerotic disease. LEFT ANTERIOR DESCENDING CORONARY ARTERY: The LAD appears to be a large vessel which courses to the LV apex. It appears to be patent with no obvious angiographic evidence of atherosclerotic disease. LEFT CIRCUMFLEX CORONARY ARTERY: The left circumflex coronary artery appears to be a moderate to large vessel. It appears to be patent with no obvious angiographic evidence of atherosclerotic disease. RIGHT CORONARY ARTERY: The right coronary artery appears to be a large vessel. It appears to be patent with no obvious angiographic evidence of atherosclerotic disease. THORACIC AORTA: The thoracic aorta appears to be patent with no obvious evidence of atherosclerotic disease. PULMONARY ARTERY: The main pulmonary artery and proximal portions of the right and left pulmonary artery appear to be patent with no obvious filling defects. LEFT ATRIUM/APPENDAGE: The left atrial appendage appears to be patent with no obvious filling defects. MITRAL VALVE: The mitral valve appears to be a bileaflet valve. AORTIC VALVE: The aortic valve appears to be a trileaflet valve. LEFT VENTRICLE: The left ventricle appears to demonstrate grossly normal left ventricular size, wall motion, and systolic function. CORONARY CALCIUM SCORE: The coronary calcium score was reported as 0. According to prepublished reference tables a coronary calcium score of 0 would be indicative of no identifiable atherosclerotic plaque in the very low cardiovascular disease risk with less than 5% chance of presence of coronary artery disease. This note was generated using a voice recognition system and there may be incorrect words, spelling or punctuation that were not noted when reviewing the office note prior to saving.
[2021-11-30 07:46] LABS: CREATININE FINGERSTICK 0.87 mg/dL (0.55-1.02); EGFR FINGERSTICK > 60 mL/min (>60)
== END | disposition home or self-care (01) ==
LOC: CT 12:09
DX: R07.9 Chest pain, unspecified (principal)
CPT/HCPCS: 75571; 75574; 76380; 96374; Q9967; A4216

== ENCOUNTER 2022-12-31 23:33 | Emergency (ER) | payer BC, SELFPAY ==
[2022-12-31 23:35] VITALS: BP 120/90; PULSE 111; RESP 16; TEMP 37; O2SAT 99; BMI 23.7
--- NOTE | 2023-01-01 00:22 | EKG12_ITS ---
Test Reason : MHC Blood Pressure : / mmHG Vent. Rate : 087 BPM Atrial Rate : 087 BPM P-R Int : 152 ms QRS Dur : 098 ms QT Int : 360 ms P-R-T Axes : 072 083 056 degrees QTc Int : 433 ms Normal sinus rhythm Possible Left atrial enlargement Incomplete right bundle branch block Borderline ECG Confirmed by GELACIO CRUZ, DEBBIE ([id number]), mapping editor ANNEL HAMM ([id number]) on 01/03/2023 7:48:26 AM Referred By: COLLEEN Confirmed By:GRACE BRIZUELA MD
--- NOTE | 2023-01-01 00:22 | ED.RN ---
THIS RN SPOKE WITH AFTER HE EVALUATED THE PATIENT. HE STATES NO SITTER AND PT MAY KEEP THE CLOTHES SHE CAME IN WITH ON.
[2023-01-01 00:49] LABS: Internal QC Validated? YES +Cl - CLEAR BKGD; Pregnancy, Urine Negative Negative
[2023-01-01 01:02] LABS: Amphetamine Urine VISTA NEGATIVE (<1000 ng/mL); Barbiturate Urine VISTA NEGATIVE (< 200 ng/mL); Benzodiazepine Urine VISTA NEGATIVE (< 200 ng/mL); Cocaine Urine VISTA NEGATIVE (< 300 ng/mL); Ecstacy Urine VISTA NEGATIVE (< 500 ng/mL); Methadone Urine VISTA NEGATIVE (< 300 ng/mL); PCP Urine VISTA NEGATIVE (< 25 ng/mL); THC Urine VISTA NEGATIVE (< 50 ng/mL); Vista UDS pH Range 5
[2023-01-01 01:04] LABS: Absolute Lymphocyte Count 2.33 X10^3/uL (0.83-4.51); Absolute Neutrophil Count 2.4 X10^3/uL (2.0-7.7); Basophil% 1.8 % (0-1); Eosinophil# 0.25 X10^3/uL; Eosinophils% 4.4 % (0-5); Hematocrit 36.5 % (37-47); Hemoglobin 12.7 g/dL (12.0-15.0); Lymphocyte # 2.33 X10^3/ul (0.83-4.51); Lymphocyte % 41.2 % (19-41); Mean Corp Hgb Conc 34.8 g/dL (32-36); Mean Corpuscular Hgb 30.5 pg (27.0-32.0); Mean Corpuscular Volume 87.7 fL (81-99); Mean Platelet Vol. 10.5 fl (6.2-12.0); Monocyte# 0.56 X10^3/uL; Monocyte% 9.9 % (0-10); NRBC Flagged by Analyzer 0 % (0-5); Neutrophil % 42.3 % (47-70); Platelet Count 200 K/mm3 (150-450); RBC Distribution Width CV 11.2 % (11.6-14.6); Red Blood Count 4.16 M/mm3 (4.2-5.4); White Blood Count 5.7 K/mm3 (4.4-11.0)
[2023-01-01 01:26] LABS: Anion Gap 4 (5-15); BUN 12 mg/dL (7-18); BUN/Creat Ratio 17.6 RATIO (10-20); Calcium,Total 8.7 mg/dL (8.5-10.1); Chloride 112 mmol/L (98-107); Creatinine, Serum 0.68 mg/dL (0.55-1.02); EST Glomerular Filtration Rate 109 mL/min (>60); Est Glom Filt Rate - Afr Amer 132 mL/min (>60); Estimated Creatinine Clearance 115.31 ml/min; Glucose 104 mg/dL (74-106); Potassium 3.3 mmol/L (3.5-5.1); Sodium Level 142 mmol/L (136-145)
[2023-01-01 01:37] LABS: Acetaminophen (Tylenol) Level < 2.0 ug/mL (10.0-30.0); Alcohol, Blood (Medical)-Serum < 3.0 mg/dL; Salicylate < 1.7 mg/dL (2.8-20.0)
[2023-01-01 02:00] VITALS: RESP 16
[2023-01-01 03:00] VITALS: BP 110/70; PULSE 79; RESP 14; O2SAT 99
--- NOTE | 2023-01-01 03:30 | EX.ED.DYSGE1 ---
HPI History of Present Illness Chief Complaint: Suicidal Narrative Narrative: Patient is a 27-year-old female with past medical history of bipolar disorder anxiety depression PTSD and she has attempted suicide in the past secondary to overdose. Patient states that she did not have insurance for quite a while and was no longer able to follow-up with counseling or psychiatry. She states during this time she has been having increasing depression which is led to thoughts of suicide. She states that she has a plan to overdose on her muscle relaxers that she has at home. Patient thought of performing the suicide attempt today but prior to doing so contacted her and in doing so she did not take the medication and he convince her to come to the hospital for evaluation. [facility] Medical History Acute back pain with sciatica Asthma Chronic bronchitis Deafness in left ear Depression Frequent UTI GERD (gastroesophageal reflux disease) History of broken finger IBS (irritable bowel syndrome) Migraines Physical exam, pre-employment Preeclampsia Seizures Stomach ulcer Tunnel vision Home Medications albuterol sulfate 90 mcg/actuation aerosol inhaler 2 puff inhalation DAILY PRN PRN Sob &/Or Wheezing 02/05/17 [History Last Taken 05/07/18] vit 122-ferrous fumarate 27 mg iron-folic acid 800 mcg tablet 1 ea PO DAILY iron 04/29/17 [History Last Taken 05/07/18] fluticasone propionate 110 mcg/actuation HFA aerosol inhaler 2 puff inhalation BID #12 grams 12/12/17 [Rx Last Taken 05/07/18] omeprazole 40 mg capsule,delayed release 40 mg PO QHS 06/22/18 [History Last Taken Unknown] polyethylene glycol 3350 17 gram oral powder packet 17 gm PO PRN PRN Constipation 06/22/18 [History Last Taken Unknown] fluticasone propionate 50 mcg/actuation nasal spray,suspension 1 spray NASAL DAILY ##1 10/16/18 [Rx Last Taken Unknown] lithium carbonate 150 mg capsule 600 mg PO BID 10/16/18 [History Last Taken 04/23/19 06:45] prochlorperazine maleate 10 mg tablet (Compazine) 10 mg PO PRN PRN nausea 01/30/19 [History Last Taken Unknown] ibuprofen 600 mg tablet 600 mg PO Q8H #90 tabs 10/16/19 [Rx Last Taken Unknown] estradiol 0.1 mg/24 hr weekly transdermal patch 1 patch topical QWEEK 09/03/19 [History Last Taken Unknown] rizatriptan 10 mg tablet 10 mg PO BID 09/03/19 [History Last Taken Unknown] cholecalciferol (vitamin D3) 25 mcg (1,000 unit) capsule 2 cap PO DAILY 11/22/19 [History Last Taken Unknown] escitalopram oxalate 10 mg tablet 1 tab PO DAILY 11/22/19 [History Last Taken Unknown] topiramate 50 mg tablet 1 tab PO DAILY 11/22/19 [History Last Taken Unknown] topiramate 50 mg tablet 100 mg PO DAILY nightmares 12/15/19 [History Last Taken 12/14/19 20:00 100 mg] naproxen 500 mg tablet 500 mg PO BID #14 tabs 05/23/20 [Rx Last Taken Unknown] Allergy/AdvReac Type Severity Reaction Status Date / Time adhesive tape Allergy Severe Rash Verified 12/31/22 23:39 latex Allergy Severe Rash Verified 12/31/22 23:39 benzonatate Allergy Rash Verified 12/31/22 23:39 [From Tessalon Perles] cephalexin [From Keflex] Allergy Hives Verified 12/31/22 23:39 clindamycin Allergy Anaphylaxis Verified 12/31/22 23:39 dicyclomine [From Bentyl] Allergy Itching Verified 12/31/22 23:39 meloxicam [From Mobic] Allergy Chest Verified 12/31/22 23:39 tightness metronidazole [From Flagyl] Allergy Itching Verified 12/31/22 23:39 nifedipine [From Procardia] Allergy Angioedema Verified 12/31/22 23:39 oseltamivir [From Tamiflu] Allergy Hives Verified 12/31/22 23:39 Penicillins Allergy Anaphylaxis Verified 12/31/22 23:39 prednisone Allergy Rash Verified 12/31/22 23:39 progesterone Allergy Hives Verified 12/31/22 23:39 Sulfa (Sulfonamide Allergy Hives Verified 12/31/22 23:39 Antibiotics) terbutaline [From Brethine] Allergy Angioedema Verified 12/31/22 23:39 ondansetron AdvReac Other Verified 12/31/22 23:39 [From Zofran (as hydrochloride)] Family History (System 06/30/21 @ 12:45 by Lee Cortez) Mother Alcoholism Asthma Cancer Anxiety and depression Seizures Father Anxiety and depression Alcoholism Seizures Diabetes Myocardial infarction, Onset Age: 39 Grandmother Cancer uterine Thyroid disorder COPD (chronic obstructive pulmonary disease) Hypertension Hyperlipemia Asthma Sister Cystic fibrosis Asthma Brother Cystic fibrosis Mental retardation Aunt Breast cancer Aunt Cancer ovarian Unknown Cancer lung Surgical History (Updated 11/26/21 @ 12:29 by Rosalva Hair) H/O medial meniscus repair of right knee H/O: hysterectomy History of colonoscopy History of left oophorectomy History of repair of anterior cruciate ligament of left knee History of tubal ligation History of wisdom tooth extraction Social History (Updated 11/26/21 @ 12:31 by Rosalva Hair) Smoking Status: Current every day smoker tobacco type: cigarettes Tobacco: How many years used: 12 alcohol intake: current substance use type: former substance user and marijuana what type of physical activity do you participate in: walking frequency: daily ROS ROS ED Constitutional Constitutional ED: Denies chills or fever(s) ENT ENT ED: Denies sore throat Cardiovascular Cardiovascular: Denies chest pain Respiratory/Chest Respiratory/Chest: Denies cough or dyspnea Gastrointestinal Gastrointestinal: Denies abdominal pain, diarrhea, nausea or vomiting Genitourinary Genitourinary ED: Denies dysuria Musculoskeletal Musculoskeletal: Denies myalgias Integumentary Denies rash Neurologic Neurologic: Denies headache(s) Psychiatric Psychiatric: Reports depression, suicidal ideation and suicidal thoughts Hematologic/Lymphatic Hematologic/Lymphatic: Denies easy bleeding or easy bruising EXAM Physical Exam Const Vital Signs: 12/31/22 23:35 01/01/23 02:00 01/01/23 03:00 Temperature 98.6 F Temperature Source Temporal Pulse Rate 111 H 79 Respiratory Rate 16 16 14 Blood Pressure 120/90 H 110/70 Blood Pressure Mean 100 83 Pulse Ox 99 99 Oxygen Delivery Method Room Air Room Air Positive well nourished and well developed General Appearance ED: well developed HEENT HEENT Narrative: Normocephalic atraumatic Eyes PERRL and EOMs intact bilaterally Neck supple Resp normal respiratory effort and clear to auscultation bilaterally Cardio regular rate and regular rhythm GI normal to inspection, nondistended, normoactive bowel sounds, non-tender, non-distended and no masses Auscultation: normoactive bowel sounds Palpation: soft Extremity normal to inspection Neuro oriented x3 and CN's II-XII intact bilaterally Sensorium / Orientation: alert Psych Psych Narrative: Patient has a depressed/flat affect with suicidal ideation with plan Skin no rashes or lesions noted MDM MDM MDM Narrative Medical decision making narrative: Patient presented to the ER with stable vitals and in no acute distress. She reported a longstanding history of depression which she states had worsened over the past few weeks. She states that secondary to the increased depression she now has thoughts of suicide. Moreover she has a plan to overdose on muscle relaxers that she has at home. Worsening situation is the fact that she has attempted to harm her self in the past by similar methods. Therefore at this time patient needs a psychiatric evaluation secondary to her suicidal ideation with plan. Crisis center was contacted and they evaluated the patient. They feel that based on her worsening symptoms and with suicidal ideation with plan and previous suicide attempt that she is high risk to harm her self and agree that she should be placed for inpatient treatment. The patient was informed of this decision and is agreeable to it. The patient is medically cleared from emergency room standpoint for transfer/placement to a psychiatric hospital History & Record Review Discussion w/independent historian: Patient and Significant other Lab Data Attestation: I reviewed the patient's lab results. Labs: Laboratory Results - last 24 hr 01/01/23 01/01/23 01/01/23 00:25 00:25 00:50 WBC 5.7 RBC 4.16 L Hgb 12.7 Hct 36.5 L MCV 87.7 MCH 30.5 MCHC 34.8 RDW Std Deviation 36.0 RDW Coeff of Jo 11.2 L Plt Count 200 MPV 10.5 Immature Gran % (Auto) 0.400 Neut % (Auto) 42.3 L Lymph % (Auto) 41.2 H [place] % (Auto) 9.9 Eos % (Auto) 4.4 Baso % (Auto) 1.8 H Absolute Neuts (auto) 2.4 Absolute Lymphs (auto) 2.33 Nucleated RBC % 0 Sodium Potassium Chloride Carbon Dioxide Anion Gap BUN Creatinine Estim Creat Clear Calc Est GFR (MDRD) Af Amer Est GFR (MDRD) Non-Af BUN/Creatinine Ratio Glucose Calcium Urine Test Negative Salicylates Urine Opiates Screen NEGATIVE Urine Methadone Screen NEGATIVE Acetaminophen Ur Barbiturates Screen NEGATIVE Ur Phencyclidine Scrn NEGATIVE Ur Amphetamines Screen NEGATIVE MDMA (Ecstasy) Screen NEGATIVE U Benzodiazepines Scrn NEGATIVE Urine Cocaine Screen NEGATIVE U Cannabinoids Screen NEGATIVE Ur Drug Screen Comment Ethyl Alcohol 01/01/23 01/01/23 00:50 00:50 WBC RBC Hgb Hct MCV MCH MCHC RDW Std Deviation RDW Coeff of Jo Plt Count MPV Immature Gran % (Auto) Neut % (Auto) Lymph % (Auto) [place] % (Auto) Eos % (Auto) Baso % (Auto) Absolute Neuts (auto) Absolute Lymphs (auto) Nucleated RBC % Sodium 142 Potassium 3.3 L Chloride 112 H Carbon Dioxide 26.0 Anion Gap 4 L BUN 12 Creatinine 0.68 Estim Creat Clear Calc 115.31 Est GFR (MDRD) Af Amer 132 Est GFR (MDRD) Non-Af 109 BUN/Creatinine Ratio 17.6 Glucose 104 Calcium 8.7 Urine Test Salicylates < 1.7 L Urine Opiates Screen Urine Methadone Screen Acetaminophen < 2.0 L Ur Barbiturates Screen Ur Phencyclidine Scrn Ur Amphetamines Screen MDMA (Ecstasy) Screen U Benzodiazepines Scrn Urine Cocaine Screen U Cannabinoids Screen Ur Drug Screen Comment Ethyl Alcohol < 3.0 Discharge Plan Triage Chief Complaint: Suicidal ED Provider: Checo Rosado Dx/Rx/DC Orders Clinical Impression: Depression with suicidal ideation, Bipolar disorder Prescriptions: No Action prochlorperazine maleate [Compazine] 10 mg tablet 10 mg PO PRN PRN (Reason: nausea ) ibuprofen 600 mg tablet 600 mg PO Q8H Qty: 90 0RF Rx Instructions: do not take with naproxen or other NSAIDs cholecalciferol (vitamin D3) 25 mcg (1,000 unit) capsule 2 cap PO DAILY escitalopram oxalate 10 mg tablet 1 tab PO DAILY topiramate 50 mg tablet 1 tab PO DAILY albuterol sulfate 1 INHALER inhaler 2 puff INHALATION DAILY PRN PRN (Reason: Sob &/Or Wheezing) [id number] acid 1 EACH tablet 1 ea PO DAILY polyethylene glycol 3350 17 GM packet 17 gm PO PRN PRN (Reason: Constipation) omeprazole 40 MG capsule,delayed release(DR/EC) 40 mg PO QHS lithium carbonate 150 MG capsule 600 mg PO BID Label Comments: states takes 600 mg at night fluticasone propionate 1 SPRAY spray,suspension 1 spray NASAL DAILY Qty: 1 0RF Rx Instructions: 1 spray to each nostril daily rizatriptan 10 MG tablet 10 mg PO BID estradiol 0.1MG/24HR patch weekly 1 patch topical QWEEK topiramate 50 MG tablet 100 mg PO DAILY naproxen 500 MG tablet 500 mg PO BID Qty: 14 0RF fluticasone propionate 110 mcg/actuation HFA aerosol inhaler 2 puff INHALATION BID Qty: 12 1RF Primary Care Provider: JORJE LARSEN Referrals: JORJE LARSEN [Other] Disposition Disposition: Psychiatric Hospital or Unit
[2023-01-01 08:00] VITALS: RESP 16
[2023-01-01 10:00] VITALS: RESP 18
--- NOTE | 2023-01-01 10:41 | NURSING ---
CRISIS CALLED AND STATED THAT THE PT IS PENDING AT [facility]
--- NOTE | 2023-01-01 11:53 | NURSING ---
CRISIS CALLED AND STATED THAT [facility] DECLINED
--- NOTE | 2023-01-01 12:01 | NURSING ---
JORJE PEREZ CALLED WITH ACCEPTANCE --DR VALENTE--[address]--RN TO RN [phone]
[2023-01-01 12:08] VITALS: BP 102/63; PULSE 77; RESP 18; O2SAT 100
--- NOTE | 2023-01-01 12:15 | ED.RN ---
Pt. requesting nicotine patch- Dr. rae notified
--- NOTE | 2023-01-01 12:19 | NURSING ---
CALLED PHYSICIANS TO SET UP TRANSPORT TO [facility]-- ETA 90 MIN--[id number]
== END 2023-01-01 14:50 ==
PROVIDERS: Emergency Provider Emergency Medicine; Visit Provider Emergency Medicine
DX: F31.9 Bipolar disorder, unspecified (principal); R45.851 Suicidal ideations; F17.210 Nicotine dependence, cigarettes, uncomplicated
CPT/HCPCS: 80048; 80307; 80329; 81025; 82077; 85025; 87811; 93005; 99283; G0480

== ENCOUNTER 2023-09-16 16:19 | Emergency (ER) | payer MEDICAID, SELFPAY ==
[2023-09-16 16:20] VITALS: BP 114/80; PULSE 104; RESP 16; TEMP 32.7; O2SAT 98; BMI 27.1
--- NOTE | 2023-09-16 16:29 | EDS_ITS ---
HPI History of Present Illness Chief Complaint: Fever Informant: patient Onset/Context/Timing Onset: Yesterday Context: Gradual Onset Timing: Continuous Quality: Weakness Location: Generalized Worsened by: Nothing Relieved by: Nothing Narrative Narrative: Patient presents after being diagnosed with COVID yesterday. Patient was seen at [facility] yesterday. Patient states the only thing they did there was check a COVID, influenza, and RSV swab. Patient was positive for COVID-19. Patient states she has been having fevers up to 102. Patient admits to sore throat and rhinorrhea. Patient states she is coughing up some green and brown sputum. Patient admits to some nasal congestion and postnasal drainage. Patient states she has also been feeling dizzy and weak. [facility] Medical History Acute back pain with sciatica Asthma Chronic bronchitis Deafness in left ear Depression Frequent UTI GERD (gastroesophageal reflux disease) History of broken finger IBS (irritable bowel syndrome) Migraines Physical exam, pre-employment Preeclampsia Seizures Stomach ulcer Tunnel vision Home Medications albuterol sulfate 90 mcg/actuation aerosol inhaler 2 puff inhalation DAILY PRN PRN Sob &/Or Wheezing 02/05/17 [History Last Taken 05/07/18] vit 122-ferrous fumarate 27 mg iron-folic acid 800 mcg tablet 1 ea PO DAILY iron 04/29/17 [History Last Taken 05/07/18] fluticasone propionate 110 mcg/actuation HFA aerosol inhaler 2 puff inhalation BID #12 grams 12/12/17 [Rx Last Taken 05/07/18] omeprazole 40 mg capsule,delayed release 40 mg PO QHS 06/22/18 [History Last Taken Unknown] polyethylene glycol 3350 17 gram oral powder packet 17 gm PO PRN PRN Constipation 06/22/18 [History Last Taken Unknown] fluticasone propionate 50 mcg/actuation nasal spray,suspension 1 spray NASAL DAILY ##1 10/16/18 [Rx Last Taken Unknown] lithium carbonate 150 mg capsule 600 mg PO BID 10/16/18 [History Last Taken 04/23/19 06:45] prochlorperazine maleate 10 mg tablet (Compazine) 10 mg PO PRN PRN nausea 01/30/19 [History Last Taken Unknown] ibuprofen 600 mg tablet 600 mg PO Q8H #90 tabs 05/08/19 [Rx Last Taken Unknown] estradiol 0.1 mg/24 hr weekly transdermal patch 1 patch topical QWEEK 09/03/19 [History Last Taken Unknown] rizatriptan 10 mg tablet 10 mg PO BID 09/03/19 [History Last Taken Unknown] cholecalciferol (vitamin D3) 25 mcg (1,000 unit) capsule 2 cap PO DAILY 11/22/19 [History Last Taken Unknown] escitalopram oxalate 10 mg tablet 1 tab PO DAILY 11/22/19 [History Last Taken Unknown] topiramate 50 mg tablet 1 tab PO DAILY 11/22/19 [History Last Taken Unknown] topiramate 50 mg tablet 100 mg PO DAILY nightmares 12/15/19 [History Last Taken 12/14/19 20:00 100 mg] naproxen 500 mg tablet 500 mg PO BID #14 tabs 05/23/20 [Rx Last Taken Unknown] Allergy/AdvReac Type Severity Reaction Status Date / Time adhesive tape Allergy Severe Rash Verified 09/16/23 16:20 latex Allergy Severe Rash Verified 09/16/23 16:20 benzonatate Allergy Rash Verified 09/16/23 16:20 [From Tessalon Perles] cephalexin [From Keflex] Allergy Hives Verified 09/16/23 16:20 clindamycin Allergy Anaphylaxis Verified 09/16/23 16:20 dicyclomine [From Bentyl] Allergy Itching Verified 09/16/23 16:20 meloxicam [From Mobic] Allergy Chest Verified 09/16/23 16:20 tightness metronidazole [From Flagyl] Allergy Itching Verified 09/16/23 16:20 nifedipine [From Procardia] Allergy Angioedema Verified 09/16/23 16:20 oseltamivir [From Tamiflu] Allergy Hives Verified 09/16/23 16:20 Penicillins Allergy Anaphylaxis Verified 09/16/23 16:20 prednisone Allergy Rash Verified 09/16/23 16:20 progesterone Allergy Hives Verified 09/16/23 16:20 Sulfa (Sulfonamide Allergy Hives Verified 09/16/23 16:20 Antibiotics) terbutaline [From Brethine] Allergy Angioedema Verified 09/16/23 16:20 ondansetron AdvReac Other Verified 09/16/23 16:20 [From Zofran (as hydrochloride)] Family History (System 06/30/21 @ 12:45 by Lee Cortez) Mother Alcoholism Asthma Cancer Anxiety and depression Seizures Father Anxiety and depression Alcoholism Seizures Diabetes Myocardial infarction, Onset Age: 39 Grandmother Cancer uterine Thyroid disorder COPD (chronic obstructive pulmonary disease) Hypertension Hyperlipemia Asthma Sister Cystic fibrosis Asthma Brother Cystic fibrosis Mental retardation Aunt Breast cancer Aunt Cancer ovarian Unknown Cancer lung Surgical History H/O medial meniscus repair of right knee H/O: hysterectomy History of colonoscopy History of left oophorectomy History of repair of anterior cruciate ligament of left knee History of tubal ligation History of wisdom tooth extraction Social History Smoking Status: Current every day smoker tobacco type: cigarettes Tobacco: How many years used: 12 alcohol intake: current substance use type: former substance user and marijuana what type of physical activity do you participate in: walking frequency: daily ROS ROS ED Constitutional Constitutional ED: Reports fever(s); Denies chills Eyes Eyes: Reports blurry vision; Denies diplopia ENT ENT ED: Reports rhinorrhea and sore throat Cardiovascular Cardiovascular: Denies chest pain or palpitations Respiratory/Chest Respiratory/Chest: Reports cough; Denies dyspnea Gastrointestinal Gastrointestinal: Reports nausea and vomiting Genitourinary Genitourinary ED: Denies dysuria or hematuria Musculoskeletal Musculoskeletal: Reports back pain; Denies neck pain Integumentary Denies abscess or rash Neurologic Neurologic: Denies headache(s) or weakness Allergic/Immunologic Allergic/Immunologic ED: Denies mouth swelling or urticaria EXAM Physical Exam Const Vital Signs: 09/16/23 16:20 09/16/23 16:35 Temperature 91 F L Temperature Source Temporal Pulse Rate 104 H Respiratory Rate 16 Respiratory Effort Normal Non-Labored Respiratory Pattern Normal Blood Pressure 114/80 Blood Pressure Mean 91 Pulse Ox 98 Oxygen Delivery Method Room Air Positive well nourished and well developed General Appearance ED: well developed and NAD HEENT Reports moist mucous membranes Neck supple and no JVD Resp normal respiratory effort and clear to auscultation bilaterally Cardio regular rate and regular rhythm GI non-tender and non-distended Palpation: soft Neuro oriented x3, CN's II-XII intact bilaterally and no sensory deficits noted Sensorium / Orientation: alert Motor Exam: strength 5/5 throughout Psych mental status grossly normal MDM MDM MDM Narrative Medical decision making narrative: Differential diagnosis includes pneumonia and viral illness. Chest x-ray will be obtained to assess for pneumonia. Patient was diagnosed with COVID-19 yesterday. I do not feel any further laboratory testing needs to be done at this time. Radiography Chest X-Ray - ED: 2 View, Read by ED Physician, Read by Radiologist and No Infiltrates Diagnostic Testing: PA and lateral chest x-ray was obtained. There are 2 views. On my independent interpretation, lung webb are clear. There is normal cardiac silhouette. Bony thorax is normal. There is no acute process noted. Radiologist also interpreted the x-ray and agrees. Treatment and Re-Evaluation :: Patient was advised of her findings. Patient was instructed to use Tylenol and ibuprofen as needed for any fevers and bodyaches. Patient was instructed to drink plenty of fluids. Patient was instructed to follow-up with her primary care physician in 3 to 5 days. Patient was instructed to return if worse in any way. Patient understood and was agreeable with the plan. All questions were an swered. Discharge Plan Triage Chief Complaint: Fever ED Provider: Eder Philippe Dx/Rx/DC Orders Clinical Impression: COVID-19, Tobacco use Instructions: Coronavirus Disease 2019 (COVID-19): Caring for Yourself or Others Prescriptions: No Action prochlorperazine maleate [Compazine] 10 mg tablet 10 mg PO PRN PRN (Reason: nausea ) ibuprofen 600 mg tablet 600 mg PO Q8H Qty: 90 0RF Rx Instructions: do not take with naproxen or other NSAIDs cholecalciferol (vitamin D3) 25 mcg (1,000 unit) capsule 2 cap PO DAILY escitalopram oxalate 10 mg tablet 1 tab PO DAILY topiramate 50 mg tablet 1 tab PO DAILY albuterol sulfate 1 INHALER inhaler 2 puff INHALATION DAILY PRN PRN (Reason: Sob &/Or Wheezing) [id number] acid 1 EACH tablet 1 ea PO DAILY polyethylene glycol 3350 17 GM packet 17 gm PO PRN PRN (Reason: Constipation) omeprazole 40 MG capsule,delayed release(DR/EC) 40 mg PO QHS lithium carbonate 150 MG capsule 600 mg PO BID Patient Comments: states takes 600 mg at night fluticasone propionate 1 SPRAY spray,suspension 1 spray NASAL DAILY Qty: 1 0RF Rx Instructions: 1 spray to each nostril daily rizatriptan 10 MG tablet 10 mg PO BID estradiol 0.1MG/24HR patch weekly 1 patch topical QWEEK topiramate 50 MG tablet 100 mg PO DAILY naproxen 500 MG tablet 500 mg PO BID Qty: 14 0RF fluticasone propionate 110 mcg/actuation HFA aerosol inhaler 2 puff INHALATION BID Qty: 12 1RF Primary Care Provider: Care Physician,No Primary Referrals: Keiko Mckay MD [Med Staff - Retirement Benefits Specialist] - 3-5 Days NOT,DEFINED [Non-Staff] - 3-5 Days Activity Restrictions/Additional Instructions: Continue drinking plenty of fluids. Take Tylenol or ibuprofen as needed for any fevers or aches. Hot showers will also help with with your symptoms. Disposition Disposition: Home, Self Care
--- OUTSIDE RECORDS SUMMARY | 2023-09-16 16:56 | XMS RPT_ITS | CCD ---
Author Name Unknown Address [address] [place] [address] Organization [facility] Care Team Providers Care Medical Researcher Name Role Phone Iman Akhtar MD Unavailable [phone] SOCRATES GARIBAY Unavailable Unavailable SCOUT NAVA Unavailable Unavailab UDAY Dewitt Unavailable Unavailable SABA SINCLAIR Referring Unavailable MELCHOR ASHLEY Primary Care Unavailable Iman Akhtar MD Unavailable [phone] DR GABY LERNER Primary Care Unavailable JUNIOR CRUZ, DR SHEIKH Admitting Unavail nicholas PACHECO MD, DR SHEIKH Consulting Unavail nicholas PACHECO MD, DR SHEIKH Attending Unavail able RUTH MONAHAN Consulting Unavailable COLLIN MONTERO MD Consulting Unavailable RIVERA VANEGAS MD Consulting Unavailable DR GABY LERNER Consulting Unavailable NONE, NONE Consulting Unavailable JUNIOR CRUZ, DR SHEIKH Attending Unavail nicholas PACHECO MD, DR SHEIKH Admitting Unavail able NONE, NONE Primary Care Unavailable NONE, NONE Primary Care Unavailable JUNIOR CRUZ, DR SHEIKH Admitting Unavail nicholas PACHECO MD, DR SHEIKH Consulting Unavail nicholas PACHECO MD, DR SHEIKH Attending Unavail able Jayesh [phone], Jorge [phone] Co nsulting Unavailable NONE, NONE Consulting Unavailable Provider , Unspecified Primary Care Provider U navailable KIRSTEN CARPENTER Attending Unavaila KIRSTEN Sullivan Admitting Unavaila max Alicia MD, Lincoln M Unavailable Provider , Unlisted Primary Care Provider Unav ailable Sandie CRUZ, Gaby Unavailable Sandie CRUZ, Gaby Primary Care Provider Ragini Lewis Unavailable PHUONG LARSEN Referring Unavailab july Attending Unavailable PROVIDER, UNLISTED Primary Care Unavailable TYSON ALEXANDRA Referring Unavailable TYSON ALEXANDRA Attending Unavailable BJORNSTADFÉLIX Attending Unavailable BJORNSTAD, FÉLIX Referring Unavailable PROVIDER, UNLISTED Primary Care Unavailable PHUONG LARSEN Referring Unavailab le TYSON ALEXANDRA Attending Unavailable TYSON ALEXANDRA Attending Unavailable ALEXANDRA, TYSON Referring Unavailable PROVIDER, UNLISTED Primary Care Unavailable SCOTT WILSON Admitting Unavailable SCOTT WILSON Attending Unavailable PROVIDER, UNLISTED Primary Care Unavailable BJORNSTADFÉLIX Attending Unavailable BJORNSTAD, FÉLIX Referring Unavailable BJORNSTAD, FÉLIX Admitting Unavailable PROVIDER, UNLISTED Primary Care Unavailable TYSON ALEXANDRA Attending Unavailable ALEXANDRA, TSYON Referring Unavailable PROVIDER, UNLISTED Primary Care Unavailable BJORNSTAD, FÉLIX Referring Unavailable BJORNSTAD, FÉLIX Attending Unavailable PROVIDER, UNLISTED Primary Care Unavailable BJORNSTAD, FÉLIX Attending Unavailable BJORNSTAD, FÉLIX Referring Unavailable PROVIDER, UNLISTED Primary Care Unavailable PROVIDER, UNLISTED Primary Care Unavailable PHUONG LARSEN Referring Unavailab le TYSON ALEXANDRA Attending Unavailable BJORNSTAD, FÉLIX Attending Unavailable PROVIDER, UNLISTED Primary Care Unavailable PROVIDER, UNLISTED Referring Unavailable BJORNSTAD, FÉLIX Attending Unavailable PROVIDER, UNLISTED Referring Unavailable PROVIDER, UNLISTED Primary Care Unavailable TYSON ALEXANDRA Attending Unavailable PROVIDER, UNLISTED Primary Care Unavailable BJORNSTAD, FÉLIX Attending Unavailable BJORNSTAD, FÉLIX Referring Unavailable PROVIDER, UNLISTED Primary Care Unavailable PROVIDER, UNLISTED Primary Care Unavailable RICHCREEK, PHUONG E Referring Unavailab TYSON Stein Attending Unavailable RICHCREEK, PHUONG E Referring Unavailab TYSON Stein Attending Unavailable PROVIDER, UNLISTED Primary Care Unavailable Unavailable Primary Care Provider Unavailabl e NEELY, GUILLE E Attending Unavailable NEELY, GUILLE E Admitting Unavailable AA NO PCP, NO PCP Primary Care Unavailable Sandie CRUZ, Gaby Unavailable Sandie CRUZ, Gaby Primary Care Provider Ragini Lewis Unavailable JENNIFER CRUZ, DR LEXA Rosario Primary Care Physician JENNIFER CRUZ, DR LEXA Rosario Primary Care Unavailable MARIELLE ORTEGA DO Attending Unavailable AYDIN CRUZ, DR SANYA Villatoro Attending Mary RODRIGUEZ MD, DR LEXA Rosario Primary Care Unavailable JENNIFER CRUZ, DR LEXA Rosario Attending Unavailable JENNIFER CRUZ, DR LEXA Rosario Primary Care Unavailable [place]creek DO, Phuong E Unavailable WADE, MUSA T Attending Unavailable WADE, MUSA T Admitting Unavailable WADE, MUSA T Primary Care Unavailable RICHCREEK, PHUONG E Consulting Unavailab le PROVIDER, UNKNOWN Consulting Unavailable ZARI TOBIAS MD Admitting Unavailable ZARI TOBIAS MD Primary Care Unavailable ZARI TOBIAS MD Attending Unavailable RICHCREEK, PHUONG E Consulting Unavailab le RICHCREEK, PHUONG E Referring Unavailab le PROVIDER, UNKNOWN Consulting Unavailable VERONICA ACOSTA DO Admitting Unavailable VERONICA ACOSTA DO Primary Care Unavailable VERONICA ACOSTA DO Attending Unavailable ROSE DONNELLY Admitting Unavailable ANDRZEJROSE Primary Care Unavailable ANDRZEJROSE BARKLEY Attending Unavailable RICHCREEK, PHUONG E Referring Unavailab NNAMDI Washington Admitting Unavailable NNAMDI CHRISTOPHER Primary Care Unavailable NNAMDI CHRISTOPHER Attending Unavailable RICHCREEK, PHUONG E Consulting Unavailab le PROVIDER, UNKNOWN Consulting Unavailable ANDRZEJROSE BARKLEY Admitting Unavailable ANDRZEJROSE Primary Care Unavailable ANDRZEJROSE Attending Unavailable WADE, MUSA T Admitting Unavailable WADE, MUSA T Primary Care Unavailable WADE, MUSA T Attending Unavailable RICHCREEK, PHUONG E Consulting Unavailab le PROVIDER, UNKNOWN Consulting Unavailable RICHCREEK, PHUONG E Admitting Unavailab le RICHCREEK, PHUONG E Primary Care Unavailab le RICHCREEK, PHUONG E Attending Unavailab le KALISETTI, GABY Primary Care Unavailable TRISTAN KHAN Referring Unavailable STONE ALVAREZ Attending Unavailable KALISETTI, GABY Primary Care Unavailable PROVIDER, UNKNOWN Referring Unavailable RICHCREEK, PHUONG Referring Unavailable RICHCREEK, PHUONG Primary Care Unavailable RICHCREEK, PHUONG Attending Unavailable RICHCREEK, PHUONG Primary Care Unavailable RICHCREEK, PHUONG Attending Unavailable RICHCREEK, PHUONG Referring Unavailable RICHCREEK, PHUONG Referring Unavailable RICHCREEK, PHUONG Primary Care Unavailable RICHCREEK, PHUONG Attending Unavailable RICHCREEK, PHUONG Referring Unavailable RICHCREEK, PHUONG Primary Care Unavailable ELLENCREEK, PHUONG Attending Unavailable RAFITA CHAVEZ Attending Unavaila ble KALISETTI, GABY Primary Care Unavailable EVA SHIN Attending Unavailable KALISETTI, GABY Primary Care Unavailable EVA SHIN Referring Unavailable EVA SHIN Attending Unavailable KALISETTI, GABY Primary Care Unavailable TRISTAN KHAN Referring Unavailable KALISETTI, GABY Primary Care Unavailable TRISTAN KHAN Referring Unavailable KALISETTI, GABY Primary Care Unavailable TEODORA MORAN Attending Unavailable TRISTAN KHAN Attending Unavailable KALISETTI, GABY Primary Care Unavailable EVA SHIN Attending Unavailable KALISETTI, GABY Primary Care Unavailable TIFFANY DUMONT Admitting Unavailable ROSE DONNELLY III (HIST) Referring Unavailable KALISETTI, GABY Primary Care Unavailable DAT VALLEJO Attending Unavailable DEMAR PEREZ Consulting Unavailable KALISETTI, GABY Primary Care Unavailable PHYLLIS RICHTER Attending Unavailable GORDO LAFLEUR Attending Unavailable GORDO LAFLEUR Referring Unavailable KALISETTI, GABY Primary Care Unavailable KALISETTI, GABY Primary Care Unavailable KALISETTI, GABY Primary Care Unavailable CLAUDE RAI Attending Unavailable KALISETTI, GABY Primary Care Unavailable Allergies Allergy Classification Reported Allergen(s) Allergy Type Date of Onset Reaction(s) Facility Anticholinergics (1 source) Dicyclomine Drug Allergy [facility] Repository benzonatate (1 source) benzonatate Drug Allergy [facility] Repository Cephalosporins (antibiotic) (1 source) Cephalexin Drug Allergy [facility] Repository Corticosteroids (1 source) prednisoLONE Drug Allergy [facility] Repository desflurane (1 source) desflurane Drug Allergy [facility] Repository Latex (1 source) Latex; Translations: [Latex] Substance Allergy [facility] Repository Lincosamides (antibiotic) (1 source) Clindamycin Drug Allergy [facility] Repository NIFEdipine (1 source) NIFEdipine Drug Allergy [facility] Repository Nitroimidazoles (antibiotic) (1 source) metroNIDAZOLE Drug Allergy [facility] Repository NSAIDs (1 source) meloxicam Drug Allergy [facility] Repository Ondansetron (1 source) Ondansetron Drug Allergy [facility] Repository Opioid Agonists (1 source) Codeine Drug Allergy [facility] Repository Penicillins (antibiotic) (2 sources) Amoxicillin; Translations: [Penicillins] Drug Allergy [facility] Repository Progesterone (1 source) Progesterone Drug Allergy [facility] Repository sevoflurane (1 source) sevoflurane Drug Allergy [facility] Repository Succinylcholine (1 source) Succinylcholine Drug Allergy [facility] Repository Sulfonamides (antibiotic) (1 source) Sulfonamides (Antibiotic) Drug Allergy [facility] Repository Terbutaline (1 source) Terbutaline Drug Allergy [facility] Repository (20 sources) NIFEdipine; Translations: [NIFEDIPINE] Drug Allergy Other (See Comments), Hives, Other [facility] Repository (20 sources) terbutaline; Translations: [TERBUTALINE] Drug Allergy Other (See Comments), Hives, Other [facility] Repository (1 source) CLINDAMYCIN/LINCOMYCI N; Translations: [CLINDAMYCIN/LINCOMYC IN] Propensity to adverse reactions to drug (disorder) [facility] Repository (1 source) OTHER; Translations: [OTHER] Propensity to adverse reactions to food (disorder) AOF [facility] Repository (4 sources) SULFA ANTIBIOTICS; Translations: [SULFA ANTIBIOTICS] Propensity to adverse reactions to drug (disorder) [facility] Repository (20 sources) benzonatate; Translations: [BENZONATATE] Drug Allergy Other (See Comments), Rash [facility] Repository (20 sources) Cephalexin; Translations: [CEPHALEXIN] Drug Allergy Nausea And Vomiting, Anaphylaxis, Hives [facility] Repository (20 sources) Clindamycin; Translations: [CLINDAMYCIN] Drug Allergy Hives, Shortness of Breath [facility] Repository (20 sources) Dicyclomine; Translations: [DICYCLOMINE] Drug Allergy Hives, Itching [facility] Repository (20 sources) Latex; Translations: [LATEX] Propensity to adverse reactions (disorder) Anaphylaxis, Rash [facility] Repository (20 sources) meloxicam; Translations: [MELOXICAM] Drug Allergy Other (See Comments), Other: See Comments [facility] Repository (20 sources) metroNIDAZOLE; Translations: [METRONIDAZOLE HCL] Drug Allergy Itching [facility] Repository (20 sources) Ondansetron; Translations: [ONDANSETRON HCL (PF)] Drug Allergy Swelling [facility] Repository (20 sources) Penicillin; Translations: [PENICILLIN] Drug Allergy [facility] Repository (20 sources) predniSONE; Translations: [PREDNISONE] Drug Allergy Rash, Swelling [facility] Repository (20 sources) Sulfonamides (Antibiotic); Translations: [SULFA (SULFONAMIDE ANTIBIOTICS)] Propensity to adverse reactions (disorder) [facility] Repository (20 sources) PROGESTERONE AQUEOUS; Translations: [PROGESTERONE AQUEOUS] Propensity to adverse reactions (disorder) Rash [facility] Repository (4 sources) Ondansetron Drug Allergy [facility] (8 sources) Penicillins; Translations: [PENICILLINS] Propensity to adverse reactions to drug Anaphylaxis, [facility] (4 sources) prednisoLONE Drug Allergy Rash [facility] (4 sources) Sulfonamides (Antibiotic) Propensity to adverse reactions to drug Anaphylaxis [facility] (7 sources) Amoxicillin; Translations: [AMOXICILLIN] Drug Allergy [facility] Repository (1 source) Clindamycin Drug Allergy unknown [facility] Work Phone: (1 source) House dust mite; Translations: [DUST MITES] allergy to substance [facility] Work Phone: (1 source) Mold Extract Drug Allergy [facility] Work Phone: (1 source) Sulfacetamide Drug Allergy unknown [facility] Work Phone: (1 source) WOOL; Translations: [WOOL] allergy to substance [facility] Work Phone: (1 source) Adhesive agent; Translations: [Adhesive] Propensity to adverse reactions (disorder) [facility] Repository (1 source) Azithromycin Drug Allergy [facility] Repository (1 source) Ciprofloxacin Drug Allergy [facility] Repository (1 source) Film dressing Drug allergy (disorder) [facility] Repository (1 source) Leucine Drug Allergy [facility] Repository (1 source) Ondansetron Drug Allergy [facility] Repository (1 source) Shrimp product Drug allergy (disorder) [facility] Repository (1 source) Sulfonamides (Antibiotic) Drug allergy (disorder) [facility] Repository (14 sources) Shellfish; Translations: [SHELLFISH DERIVED] Drug Allergy 023 Swelling [facility] Work Phone: (14 sources) [id number] Antimigraine Agents; Translations: [[id number] ANTIMIGRAINE AGENTS] Propensity to adverse reactions to drug Contraindicat ion-[facility] Surgical [facility] Work Phone: (3 sources) Codeine; Translations: [codeine] Drug Allergy Amoxicillin (product) [facility] (3 sources) Progesterone; Translations: [progesterone] Drug Allergy [facility] (3 sources) Sulfonamides (Antibiotic); Translations: [sulfa drugs] Drug allergy [facility] (1 source) Azithromycin Drug Allergy [facility] Repository (1 source) Codeine Drug Allergy [facility] Repository (1 source) metroNIDAZOLE Drug Allergy [facility] Repository (1 source) Ondansetron Drug Allergy [facility] Repository (1 source) Penicillin Drug Allergy [facility] Repository (1 source) Progesterone Drug Allergy [facility] Repository (1 source) Shellfish; Translations: [SHELLFISH] Food allergy (disorder) [facility] Repository (1 source) Sulfonamides (Antibiotic) Drug allergy (disorder) [facility] Repository (1 source) chlophedianol Drug Allergy [facility] Repository (1 source) Ciprofloxacin Drug Allergy [facility] Repository (1 source) dexbrompheniramine Drug Allergy [facility] Repository (1 source) Ondansetron Drug Allergy [facility] Repository (1 source) prednisoLONE Drug Allergy [facility] Repository (1 source) Progesterone Drug Allergy [facility] Repository (1 source) Sulfacetamide Drug Allergy [facility] Repository Medications Current Medications Medication Drug Class(es) Dates Sig (Normalized) Sig (Original) acetaminophen 325 mg / oxyCODONE hydrochloride 5 mg oral tablet (1 source) Opioid Agonist Start: 05-27-2023 End: 05-30-2023 take 1 tablet by mouth every six hours as needed for pain Percocet 5 mg-325 mg oral tablet Dose = 1 tab(s), Oral, q6h, PRN Pain, X 3 day(s), # 12 tab(s), 0 Refill(s), Neck pain, 73.1 Start Date: 05/27/23 Stop Date: 05/30/23 Status: Ordered diazePAM 2 mg oral tablet (1 source) Benzodiazepine Start: 05-27-2023 End: 05-30-2023 Valium 2 mg oral tablet Dose : 2 mg = 1 tab(s), Oral, q8h, X 3 day(s), # 9 tab(s), 0 Refill(s), 05/30/23 1:27:00 PM EST, Muscle spasm, 73.1 Start Date: 05/27/23 Stop Date: 05/30/23 Status: Ordered gabapentin 600 mg oral tablet (20 sources) Anti-epileptic Agent Start: 06-28-2023 End: 09-26-2023 take 1 tablet by mouth every eight hours as needed gabapentin (NEURONTIN) 600 mg tablet Take 1 tablet by mouth every 8 hours as needed for up to 90 days. 90 tablet 2 06/28/2023 09/26/2023 Active Completed/Discontinued Medications Medication Drug Class(es) Dates Sig (Normalized) Sig (Original) acetaminophen 500 mg oral tablet (10 sources) Start: 12-06-2018 take 2 tablets by mouth every eight hours as needed acetaminophen (TYLENOL) 500 mg tablet Take 2 tablets by mouth every 8 hours as needed. 45 tablet 0 12/06/2018 Suspended Problems Active Problems Problem Classification Problem Date Documented Date Episodic/Chronic Abdominal pain (6 sources) Abdominal pain in Onset: 10-16-2013 10-16-2013 Episodic Allergic reactions (4 sources) Allergy status to other antibiotic agents status; Translations: [Allergy status to analgesic agent status] Onset: 06-07-2022 Episodic Anxiety disorders (20 sources) Posttraumatic stress disorder; Translations: [Post-traumatic stress disorder, unspecified] Onset: 10-06-2015 01-02-2017 Chronic Past or Other Problems Problem Classification Problem Date Documented Da te Episodic/Chronic Administrative/social admission (2 sources) Healthcare supervision finding; Translations: [Encounter for health supervision and care of foundling] Onset: 10-06-2015 11-27-2015 Episodic Disorders of teeth and jaw (2 sources) Toothache; Translations: [Other specified disorders of teeth and supporting structures] Onset: 10-06-2015 09-09-2021 Episodic Epilepsy; convulsions (20 sources) Seizure; Translations: [Unspecified convulsions] Onset: 01-25-2017 01-25-2017 Episodic Genitourinary symptoms and ill-defined conditions (2 sources) Proteinuria; Translations: [Proteinuria, unspecified] Onset: 10-19-2015 09-09-2021 Episodic Headache; including migraine (6 sources) Headache disorder; Translations: [Headache disorder] Onset: 11-20-2015 07-26-2021 Episodic Inflammatory diseases of female pelvic organs (2 sources) Bacterial vaginosis; Translations: [Acute vaginitis] Onset: 10-06-2015 09-09-2021 Episodic Malaise and fatigue (11 sources) Asthenia; Translations: [Weakness] Onset: 04-27-2023 04-27-2023 Episodic Menopausal disorders (17 sources) Drug therapy status; Translations: [Hormone replacement therapy] Onset: 06-03-2019 Episodic Nonmalignant breast conditions (20 sources) Discharge from nipple; Translations: [Nipple discharge] Onset: 12-10-2021 Episodic Other complications of (2 sources) High risk ; Translations: [Supervision of high risk , unspecified, unspecified trimester] Onset: 10-23-2015 11-27-2015 Episodic Other complications of (2 sources) 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; Translations: [ care for patient with recurrent loss, unspecified trimester] Onset: 10-06-2015 09-09-2021 Episodic Other connective tissue disease (15 sources) Tear of right rotator cuff; Translations: [Unspecified rotator cuff tear or rupture of right shoulder, not specified as traumatic] Onset: 07-09-2019 11-22-2021 Episodic Other female genital disorders (2 sources) H/O: premature delivery; Translations: [Personal history of pre-term labor] Onset: 10-23-2015 11-27-2015 Episodic Other infections; including parasitic (2 sources) H/O: infectious disease; Translations: [Personal history of other infectious and parasitic diseases] Onset: 10-06-2015 09-09-2021 Episodic Poisoning by other medications and drugs (2 sources) Poisoning caused by acetaminophen; Translations: [Poisoning by 4-Aminophenol derivatives, accidental (unintentional), initial encounter] Onset: 11-26-2015 11-26-2015 Episodic Residual codes; unclassified (19 sources) Poor historian; Translations: [Other specified health status] Onset: 10-14-2016 10-14-2016 Episodic Screening and history of mental health and substance abuse codes (19 sources) H/O: depression; Translations: [Personal history of other mental and behavioral disorders] Onset: 10-13-2016 10-13-2016 Episodic Spondylosis; intervertebral disc disorders; other back problems (16 sources) Disorder of vertebral column; Translations: [Sacrococcygeal disorders, not elsewhere classified] Onset: 11-22-2021 11-22-2021 Episodic Sprains and strains (2 sources) Sprain of anterior cruciate ligament of right knee, initial encounter; Translations: [SPRAIN ACL RIGHT KNEE INITIAL ENC] Onset: 07-20-2020 Episodic Unclassified (1 source) Problem Results Test Name Value Interpretation Reference Range Facil ity Vital Signs Date Time Vital Sign Value Performing Clinician Facility 06-28-2023 08:59-0500 Body weight 78.56 kg Gordo Lafleur MD Work Phone: [facility] 06-28-2023 08:59-0500 Diastolic blood pressure 62 mm[Hg] Gordo Lafleur MD Work Phone: [facility] 06-28-2023 08:59-0500 Heart rate 94 /min Gordo Lafleur MD Work Phone: [facility] 06-28-2023 08:59-0500 SaO2% (BldA) [Mass fraction] 99 % Gordo Lafleur MD Work Phone: [facility] 06-28-2023 08:59-0500 Systolic blood pressure 116 mm[Hg] Gordo Lafleur MD Work Phone: [facility] 06-19-2023 15:53-0500 Body height 167.6 cm Eva Teresa PLAN NURSE.MANAGER BANQUET Work Phone: [facility] 06-19-2023 15:53-0500 Body weight 75.75 kg Eva Teresa PLAN NURSE.MANAGER BANQUET Work Phone: [facility] 06-19-2023 15:53-0500 Diastolic blood pressure 56 mm[Hg] Eva Teresa PLAN NURSE.MANAGER BANQUET Work Phone: [facility] 06-19-2023 15:53-0500 Heart rate 81 /min Eva Teresa PLAN NURSE.MANAGER BANQUET Work Phone: [facility] 06-19-2023 15:53-0500 Respiratory rate 18 /min Eva Teresa PLAN NURSE.MANAGER BANQUET Work Phone: [facility] 06-19-2023 15:53-0500 Systolic blood pressure 108 mm[Hg] Eva Teresa PLAN NURSE.MANAGER BANQUET Work Phone: [facility] 06-03-2023 23:53-0500 Diastolic Blood Pressure Non-Invasive [address] SANYA PERRIN MD [facility] 06-03-2023 23:53-0500 Heart rate 79 /min DR SANYA PERRIN MD [facility] 06-03-2023 23:53-0500 Respiratory rate 18 /min DR SANYA PERRIN MD [facility] 06-03-2023 23:53-0500 Systolic Blood Pressure Non-Invasive [address] SANYA PERRIN MD [facility] 06-03-2023 22:24-0500 Diastolic Blood Pressure Non-Invasive [address] SANYA PERRIN MD [facility] 06-03-2023 22:24-0500 Heart rate 91 /min DR SANYA PERRIN MD [facility] 06-03-2023 22:24-0500 Respiratory rate 18 /min DR SANYA PERRIN MD [facility] 06-03-2023 22:24-0500 Systolic Blood Pressure Non-Invasive [address] SANYA PERRIN MD [facility] 06-03-2023 20:48-0500 Body temperature 97.52 [degF] DR SANYA PERRIN MD [facility] 06-03-2023 20:48-0500 Body weight 79.[address] SANYA PERRIN MD [facility] 06-03-2023 20:48-0500 Diastolic Blood Pressure Non-Invasive [address] SANYA PERRIN MD [facility] 06-03-2023 20:48-0500 Heart rate 93 /min DR SANYA PERRIN MD [facility] 06-03-2023 20:48-0500 Respiratory rate 18 /min DR SANYA PERRIN MD [facility] 06-03-2023 20:48-0500 Systolic Blood Pressure Non-Invasive [address] SANYA PERRIN MD [address] 05-27-2023 15:14-0400 Diastolic Blood Pressure Non-Invasive [address] URIEL ROMERO MD [address] [place] [address] 05-27-2023 15:14-0400 Heart rate 73 /min DR URIEL ROMERO MD [address] [place] [address] 05-27-2023 15:14-0400 Respiratory rate 18 /min DR URIEL ROMERO MD [facility] 05-27-2023 15:14-0400 Systolic Blood Pressure Non-Invasive [address] URIEL ROMERO MD [facility] 05-27-2023 12:05-0400 Diastolic Blood Pressure Non-Invasive [address] URIEL ROMERO MD [facility] 05-27-2023 12:05-0400 Reason For Taking VItal Signs DR URIEL ROMERO MD [facility] 05-27-2023 12:05-0400 Systolic Blood Pressure Non-Invasive [address] URIEL ROMERO MD [address] [place] [address] 05-27-2023 11:55-0400 Diastolic Blood Pressure Non-Invasive [address] URIEL ROMERO MD [address] [place] [address] 05-27-2023 11:55-0400 Systolic Blood Pressure Non-Invasive [address] URIEL ROMERO MD [facility] 05-27-2023 11:33-0400 Body temperature 98.78 [degF] DR URIEL ROMERO MD [facility] 05-27-2023 11:33-0400 Body weight 73.[address] URIEL ROMERO MD [facility] 05-27-2023 11:33-0400 Heart rate 91 /min DR URIEL ROMERO MD [facility] 05-27-2023 11:33-0400 Respiratory rate 18 /min DR URIEL ROMERO MD [facility] 02-17-2022 09:49-0400 Body height 167.6 cm Eva Teresa PLAN NURSE.MANAGER BANQUET Work Phone: [facility] 02-17-2022 09:49-0400 Body weight 67.59 kg Eva Teresa PLAN NURSE.MANAGER BANQUET Work Phone: [facility] 02-17-2022 09:49-0400 Diastolic blood pressure 71 mm[Hg] Eva Teresa PLAN NURSE.MANAGER BANQUET Work Phone: [facility] 02-17-2022 09:49-0400 Heart rate 116 /min Eva Teresa PLAN NURSE.MANAGER BANQUET Work Phone: [facility] 02-17-2022 09:49-0400 Respiratory rate 14 /min Eva Teresa PLAN NURSE.MANAGER BANQUET Work Phone: [facility] 02-17-2022 09:49-0400 SaO2% (BldA) [Mass fraction] 98 % Eva Teresa PLAN NURSE.MANAGER BANQUET Work Phone: [facility] 02-17-2022 09:49-0400 Systolic blood pressure 119 mm[Hg] Eva Teresa PLAN NURSE.MANAGER BANQUET Work Phone: [facility] 11-12-2021 10:33-0400 Body height 167.6 cm Isreal Beckham MD Work Phone: [facility] 11-12-2021 10:33-0400 Body weight 68.04 kg Isreal Beckham MD Work Phone: [facility] 11-12-2021 10:33-0400 Diastolic blood pressure 84 mm[Hg] Isreal Beckham MD Work Phone: [facility] 11-12-2021 10:33-0400 Heart rate 79 /min Isreal Beckham MD Work Phone: [facility] 11-12-2021 10:33-0400 Systolic blood pressure 121 mm[Hg] Isreal Beckham MD Work Phone: [facility] 10-22-2021 10:54-0400 Body height 167.6 cm Eva Teresa PLAN NURSE.MANAGER BANQUET Work Phone: [facility] 10-22-2021 10:54-0400 Body weight 70.17 kg Eva Teresa PLAN NURSE.MANAGER [employer]QUET Work Phone: [facility] 10-22-2021 10:54-0400 Diastolic blood pressure 74 mm[Hg] Eva Teresa PLAN NURSE.MANAGER BANQUET Work Phone: [facility] 10-22-2021 10:54-0400 Heart rate 117 /min Eva Teresa PLAN NURSE.MANAGER BANQUET Work Phone: [facility] 10-22-2021 10:54-0400 SaO2% (BldA) [Mass fraction] 100 % Eva Teresa PLAN NURSE.MANAGER BANQUET Work Phone: [facility] 10-22-2021 10:54-0400 Systolic blood pressure 125 mm[Hg] Eva Teresa PLAN NURSE.MANAGER BANQUET Work Phone: [facility] 07-06-2021 20:46-0500 Diastolic blood pressure 57 mm[Hg] Scott Wilson MD Work Phone: [facility] 07-06-2021 20:46-0500 Heart rate 103 /min Scott Wilson MD Work Phone: [phone] [place] [address] 07-06-2021 20:46-0500 Respiratory rate 22 /min Scott Wilson MD Work Phone: [facility] 07-06-2021 20:46-0500 SaO2% (BldA) [Mass fraction] 99 % Scott Wilson MD Work Phone: [facility] 07-06-2021 20:46-0500 Systolic blood pressure 103 mm[Hg] Scott Wilson MD Work Phone: [facility] 07-06-2021 13:09-0500 Body height 165.1 cm Scott Wilson MD Work Phone: [facility] 07-06-2021 13:09-0500 Body mass index (BMI) [Ratio] 24.96 kg/m2 Scott Wilson MD Work Phone: [facility] 07-06-2021 13:09-0500 Body temperature 98.71 [degF] Scott Wilson MD Work Phone: [facility] 07-06-2021 13:09-0500 Body weight 68.04 kg Scott Wilson MD Work Phone: [facility] NEGATED: Highlighted [id number] 11:05-0500 Body height 167.64 cm Zari Chowdary AT [facility] Work Phone: NEGATED: Highlighted [id number] 11:05-0500 Body height 168 cm Zari Chowdary AT [facility] Work Phone: NEGATED: Highlighted [id number] 11:05-0500 Body mass index (BMI) [Ratio] 24.14 kg/m2 Zari Chowdary AT [facility] Work Phone: NEGATED: Highlighted [id number] 11:05-0500 Body weight 67.59 kg Zari Chowdary AT [facility] Work Phone: NEGATED: Highlighted [id number] 11:05-0500 Body weight 68 kg Zari Chowdary AT [facility] Work Phone: Encounters Encounter Date Encounter Type Care Provider Facility Start: 09-05-2023 End: 09-05-2023 ambulatory CLAUDE RAI Facility:[id number] Start: 09-05-2023 End: 09-05-2023 Telemedicine consultation with patient Shashi Ria APRN.MANAGER BANQUET Work Phone: [facility] Start: 09-05-2023 End: 09-05-2023 Telephone encounter Shashi Rai APRN.MANAGER BANQUET Work Phone: Pain Management Procedures Date Procedure Procedure Detail Performing Clinician Start: 04-27-2023 Urinalysis [facility] Plan of Treatment Date Care Activity Detail Author Start: 2044 Shingles (RZV) Vacci ne (1 of 2) Shingles (RZV) Vaccine (1 of 2) [facility] Start: 09-04-2030 Urine microalbumin profile DTa P,Tdap,Td Vaccine (12 - Td or Tdap) [facility] Start: 05-25-2027 Urine microalbumin profile [facility] Start: 11-10-2025 Tetanus vaccination Tetanus (T d or Tdap) Booster [facility] Start: 06-21-2024 Pneumococcal vaccination [facility] Immunizations Immunization Date Immunization Notes Care Provider Adrian harvey 05-17-2023 influenza virus vaccine, unspecified formulation Tristan Khan MD Work Phone: [facility] Work Phone: 09-04-2020 tetanus toxoid, redu brenda diphtheria toxoid, and acellular pertussis vaccine, adsorbed DR URIEL ROMERO MD [facility] 06-03-2019 influenza, injectabl e, quadrivalent, contains preservative Uzair Parks MD Work Phone: [facility] 06-03-2019 influenza virus vaccine, unspecified formulation Rafita Chavez MD Work Phone: [facility] 03-22-2018 influenza, injectabl e, quadrivalent, contains preservative Uzair Parks MD Work Phone: [facility] 05-25-2017 tetanus toxoid, redu brenda diphtheria toxoid, and acellular pertussis vaccine, adsorbed Uzair Parks MD Work Phone: [facility] 01-02-2017 pneumococcal polysaccharide vaccine, 23 valent Uzair Parks MD Work Phone: [facility] 04-13-2016 influenza virus vaccine, unspecified formulation Scott Wilson MD Work Phone: [facility] 11-28-2015 pneumococcal polysaccharide vaccine, 23 valent Uzair Parks MD Work Phone: [facility] Work Phone: 11-11-2015 tetanus toxoid, redu brenda diphtheria toxoid, and acellular pertussis vaccine, adsorbed Uzair Parks MD Work Phone: [facility] Work Phone: 10-31-2013 pneumococcal polysaccharide vaccine, [address] URIEL ROMERO MD [facility] 10-30-2013 tetanus toxoid, redu brenda diphtheria toxoid, and acellular pertussis vaccine, adsorbed DR URIEL ROMERO MD [facility] 05-22-2012 tetanus toxoid, redu brenda diphtheria toxoid, and acellular pertussis vaccine, adsorbed Uzair Parks MD Work Phone: [facility] Work Phone: 05-22-2012 varicella virus vaccine Claudia Parks MD Work Phone: [facility] Work Phone: 02-16-2012 meningococcal polysaccharide (groups A, C, Y and W-135) diphtheria toxoid conjugate vaccine (MCV4P) Uzair Parks MD Work Phone: [facility] Work Phone: 02-10-2011 tetanus toxoid, redu brenda diphtheria toxoid, and acellular pertussis vaccine, adsorbed Uzair Parks MD Work Phone: [facility] Work Phone: 11-16-2009 human papilloma viru s vaccine, quadrivalent Uzair Parks MD Work Phone: [facility] Work Phone: 08-19-2009 human papilloma viru s vaccine, quadrivalent Uzair Parks MD Work Phone: [facility] Work Phone: 04-29-2009 human papilloma viru s vaccine, quadrivalent Uzair Parks MD Work Phone: [facility] Work Phone: 04-29-2009 meningococcal polysaccharide (groups A, C, Y and W-135) diphtheria toxoid conjugate vaccine (MCV4P) Uzair Parks MD Work Phone: [facility] Work Phone: 05-14-1999 varicella virus vaccine Claudia Parks MD Work Phone: [facility] Work Phone: 04-27-1999 diphtheria, tetanus toxoids and acellular pertussis vaccine, unspecified formulation Uzair Parks MD Work Phone: [facility] Work Phone: 04-27-1999 measles, mumps and rubella virus vaccine Uzair Parks MD Work Phone: [facility] Work Phone: 04-27-1999 poliovirus vaccine, unspecified formulation Uzair Parks MD Work Phone: [facility] Work Phone: 10-03-1995 measles, mumps and rubella virus vaccine Uzair Parks MD Work Phone: [facility] Work Phone: 06-19-1995 diphtheria, tetanus toxoids and acellular pertussis vaccine, unspecified formulation Uzair Parks MD Work Phone: [facility] Work Phone: 1994 diphtheria, tetanus toxoids and acellular pertussis vaccine, unspecified formulation Uziar Parks MD Work Phone: [facility] Work Phone: 1994 poliovirus vaccine, unspecified formulation Uzair Parks MD Work Phone: [facility] Work Phone: 1994 diphtheria, tetanus toxoids and acellular pertussis vaccine, unspecified formulation Uzair Parks MD Work Phone: [facility] Work Phone: 1994 poliovirus vaccine, unspecified formulation Uzair Parks MD Work Phone: [facility] Work Phone: 1994 diphtheria, tetanus toxoids and acellular pertussis vaccine, unspecified formulation Uzair Parks MD Work Phone: [facility] Work Phone: 1994 poliovirus vaccine, unspecified formulation Uzair Parks MD Work Phone: [facility] Work Phone: Payers Date Payer Category Payer Medicaid [id number] 2022 Unknown [id number] 2021 Medicaid UHC MEDICAID UHC [employer]AN MEDICAID [id number] 2021-Present [phone] [address] [place] [address] Medicaid [id number] 2021 Private Health Insurance [facility] [id number] 2021-Present [phone] [address] [place] [address] Medicaid [id number] 2021 Unknown [employer] [id number] 2021-Present [phone] [address] [address] [place] [address] [id number]. [id number] 2015 Medicaid [id number] 2011 Unknown [id number] 2011 Unknown [id number] [id number] .[id number] 1994 Unknown [id number] 2.16.840.1.318534.3.579.2. 278 1994 Unknown [id number] 2.16.840.1.054431.3.579.2. 419 1994 Unknown [id number] 2.16.840.1.502773.3.579.2. 419 1994 Unknown [id number] 2.16.840.1.181461.3.579.2. 419 1994 Unknown [id number] 2.16.840.1.341463.3.579.2. 732 1994 Unknown [id number] 2.16.840.1.926589.3.579.2. 297 1994 Unknown [id number] 2.16.840.1.405908.3.579.2. 297 1994 Unknown [id number] 2.16.840.1.100800.3.579.2. 297 1994 Unknown [id number] 2.16.840.1.151794.3.579.2. 297 1994 Unknown [id number] 2.16.840.1.799828.3.579.2. 297 1994 Unknown [id number] 2.16.840.1.947035.3.579.2. 297 1994 Unknown [id number] 2.16.840.1.084117.3.579.2. 297 1994 Unknown [id number] 2.16.840.1.951575.3.579.2. 297 1994 Unknown [id number] 2.16.840.1.214320.3.579.2. 297 1994 Unknown [id number] 2.16.840.1.078269.3.579.2. 297 1994 Unknown [id number] 2.16.840.1.265329.3.579.2. 297 1994 Unknown [id number] 2.16.840.1.704154.3.579.2. 297 1994 Unknown [id number] 2.16.840.1.648434.3.579.2. 297 1994 Unknown [id number] 2.16.840.1.246949.3.579.2. 297 1994 Unknown [id number] 2.16.840.1.547619.3.579.2. 297 1994 Unknown [id number] 2.16.840.1.875135.3.579.2. 297 1994 Unknown [id number] 2.16.840.1.084638.3.579.2. 297 1994 Unknown [id number] 2.16.840.1.619304.3.579.2. 297 1994 Unknown [id number] 2.16.840.1.214377.3.579.2. 297 1994 Unknown [id number] 2.16.840.1.630631.3.579.2. 598 1994 Unknown [id number] 2.16.840.1.908079.3.579.2. 627 1994 Unknown [id number] 2.16.840.1.131995.3.579.2. 627 1994 Unknown [id number] 2.16.840.1.550738.3.579.2. 627 1994 Unknown [id number] 2.16.840.1.429270.3.579.2. 651 1994 Unknown [id number] 2.16.840.1.024007.3.579.2. 651 1994 Unknown [id number] 2.16.840.1.111973.3.579.2. 651 1994 Unknown [id number] 2.16.840.1.169404.3.579.2. 651 1994 Unknown [id number] 2.16.840.1.253415.3.579.2. 651 1994 Unknown [id number] 2.16.840.1.720919.3.579.2. 651 1994 Unknown [id number] 2.16.840.1.692528.3.579.2. 651 1959 Private Health Insurance [id number] 1959 Unknown [id number] Unknown [id number] Unknown [id number] 2.16.840.1.837664.3.579.2. 528 Unknown [id number] 2.16.840.1.256885.3.579.2. 528 Unknown [id number] 2.16.840.1.257459.3.579.2. 528 Unknown [id number] 2.16.840.1.844701.3.579.2. 528 Social History Date Type Detail Facility Start: 07-28-2006 End: 07-21-2023 Tobacco smoking status NHIS Current every day smoker [facility] Start: 07-24-2005 History of tobacco use Cigarette Smoker [facility] Start: 06-21-2021 End: 07-21-2023 Cigarettes smoked current (pack per day) - Reported [facility] Start: 06-21-2021 End: 06-28-2023 Tobacco use and exposure Current user [employer] Start: 07-06-2021 End: 06-08-2023 Alcohol intake Current drinker of alcohol (finding) [facility] Start: 1995 Sex Assigned At Female [facility] Start: 09-28-2021 End: 09-28-2021 Assertion Unknown if ever smoked [facility] Work Phone: History of tobacco use Chews Tobacco [facility] Work Phone: Start: 10-22-2021 Alcohol intake Current non-drinker of alcohol (finding) [facility] Start: 09-04-2019 End: 12-20-2019 History SDOH Alcohol Frequency 1 [facility] Start: 09-04-2019 History SDOH Alcohol Std Drinks 98 [facility] Start: 03-09-2018 History SDOH Alcohol Comment 11 months sober [facility] Start: 09-04-2019 History SDOH Social Connections Phone 5 [facility] Start: 09-04-2019 History SDOH Social Connections Membership 2 [facility] Start: 09-04-2019 History SDOH Social Connections Living 3 [facility] Start: 09-04-2019 History SDOH Physical Activity MPS 15 [facility] Start: 12-20-2019 History SDOH Financial 4 [facility] Start: 09-03-2019 Education 21 [facility] Start: 10-12-2021 End: 02-17-2022 Exposure to SARS-CoV-2 (event) Not sure [facility] Start: 10-27-2017 End: 07-21-2023 Tobacco use and exposure Former smokeless tobacco user [facility] Work Phone: Start: 11-12-2021 History SDOH Alcohol Comment occ [facility] Start: 11-12-2021 Tobacco Comment 2 packs weekly [facility] Start: 11-19-2015 Tobacco Comment 1-2 cigs a day [facility] Start: 09-03-2019 End: 07-21-2023 Social connection and isolation panel [facility] Do you belong to any clubs or organizations such as baptist groups, unions, fraternal or athletic groups, or school groups? No [facility] Are you now , , , , never or living with a partner? [facility] How often to you hav e a drink containing alcohol? Never [facility] How many standard dr inks containing alcohol do you have on a typical day? Patient refused [facility] Do you feel stress - tense, restless, nervous, or anxious, or unable to sleep at night because your mind is troubled all the time - these days [OSQ] Very much [facility] (I/We) worried whenoa er (my/our) food would run out before (I/we) got money to buy more. Never true [facility] Work Phone: Start: 09-25-2018 Gender identity Identifies as female gender (finding) [facility] Start: 04-22-2023 Sexual orientation Bisexual (finding) [facility] Start: 12-29-2022 Tobacco smoking status Light tobacco smoker (finding) [facility] [employer] Procedure Code Equipment Code Equipment Origin al Text Equipment Identifier Dates [id number]-K-Kind Im plant - [id number] Start: 01-27-2017 Screw 9mm Delta Taper Biocomposite 28mm Interference Sterile Knee - [id number] Start: 01-27-2017 Functional Status Date Assessment Result Facility 06-03-2023 Functional Status Assistive Device Slideb oard [facility] 06-03-2023 Functional Status Standard Safet y ID band on, Call device within reach, Bed in low position, Wheels locked, Upper/Half-Length side-rails up, Phone within reach, personal items within reach, Assistive devices within reach, Bedside Cart Locked, Safety level maintained [facility] 05-27-2023 Functional Status Moderate assistance [facility] 05-27-2023 Functional Status Room check performed [facility] Mental Status Date Assessment Result Facility 06-03-2023 Mental Status Orientation Oriented x 4 [facility] 06-03-2023 [facility] Mental Status Orientation Oriented x 4 [facility] 05-27-2023 Mental Status [facility] Clinical Notes 10-13-2016 to 09-05-2023 Patient InstructionsTelephone Encounter - Brandy Hawkins - 09/05/2023 4:02 PM ESTTelephone Encounter - Iona Luna MA - 09/05/2023 3:27 PM Gordo Hernandez MD - 06/28/2023 9:15 AM EST Note Date & Type Note Facility 09-05-2023 Instructions Shashi RaiROYAL.MANAGER BANQUET - 09/05/2023 4:54 PM EST OARRS checked. Prior patient of Dr. Virgen years ago. At that time she was treated with combination of gabapentin and ketamine infusions. She also uses lidocaine patches. This was all effective for her at that time however the patient is currently not tolerating IV ketamine infusions and has since stopped taking this medication. Patient continues to take gabapentin 600 mg by mouth 3 times a day and is tolerating this without side effects. Patient to continue current regimen. Continue lidocaine patches. Patient has already discontinued undergoing IV ketamine infusions Order entered for patient undergo trigger point injections of the cervical and lumbar spine. Patient to undergo a series of 3 trigger point injections. Order placed for trigger point injection #[address] Lafleur. Follow-up virtually in 1 month. documented in this encounter [facility] 09-05-2023 Miscellaneous Notes I spoke to Eileen and informed her there has been a time change for the September 25 procedure to 11 and not 10. She verbalized understanding. Brandy September 05, 2023 4:04 PM documented in this encounter [facility] 09-05-2023 Note HNO ID: [id number] Author: SHASHI RAI APRN.HARSH Service: ? Author Type: Nurse Practitioner Type: Progress Notes Filed: 09/05/2023 16:54 Note Text: This video visit was performed via [employer] Video Visit. Patient consented to receive health care services via virtual visit for this encounter Provider Location: Non-[facility] Facility Patient Location: Patient Home or Place of Residence Risks, benefits, and limitations of receiving care virtually were discussed with the patient. The patient expressed understanding and is willing to proceed. Chief Complaint: Pain _ History of Present Illness: Fernando Guido is a 28 year old year old female being seen at [facility] for a evaluation and/or management of her chronic pain. Patient saw Dr. Lafleur for her initial consultation on 06/28/2023. The plan at that time was for the patient to increase gabapentin to 600 mg by mouth 2 times a day, IV lidocaine infusions and begin ketamine infusions. Patient reports the ketamine was not greatly effective and she had side effects including nausea, vomiting, diarrhea, and migraines. She has since elected to stop undergoing IV ketamine infusions due to this. Patient reports her pain is a 9/10 widespread throughout her entire body. Patient has fibromyalgia. Patient reports that she is experiencing much of her pain in her back. Patient reports she has a lot of muscular tenderness in the cervical and lumbar spine. PDMP website checked and validated. OARRS report reviewed and is consistent with the patients medical history and medication intake. None on file Last UDS: N/A No specialty comments available. No results found for: PREGAB , SUMM No results found for: [facility]MAR Chronic Pain Functional Assessment Tools Pain Disability Index: Pain Disability Index 06/28/2023 09/01/2023 Family/Home Responsibilities: This category includes chores or duties performed around the house (e.g. yard work), errands or favors for other family members (e.g. driving the children to school) 8 9 Recreation: This category includes hobbies, sports, and other similar leisure time activities 8 10 Total disability Social Activity: This category refers to activities which involve participation with friends and acquaintances, other than family members. It includes parties, theater, concerts, dinning out, and other social functions 8 10 Total disability Occupation: This category refers to activities that are a part of or directly related to ones' job. This includes non-paying jobs as well, such as that of a housewife or volunteer worker 0 No disability 10 Total disability Sexual Behavior: This category refers to the frequency and quality of one's sex life 8 9 Self Care: This category includes activities which involve personal maintenance and independent daily living (e.g. taking a shower, driving, getting dress, etc) 8 9 Life Support Activity: This category refers to basic-life supporting behaviors such as eating, sleeping, and breathing 8 8 PDI Score 48 65 Pain Enjoyment of Life and General Activity Scale (0-10): PEG: A Three-Item Scale Assessing Pain Intensity and Interference What number best describes your pain on average in the past week?: 9 (09/01/2023 8:29 PM) What number best describes how, during the past week, pain has interfered with your enjoyment of life?: 9 (09/01/2023 8:29 PM) What number best describes how, during the past week, pain has interfered with your general activity?: 9 (09/01/2023 8:29 PM) REVIEW OF SYSTEMS: GENERAL: No weight loss or fevers RESPIRATORY: Negative for cough CARDIOVASCULAR: Negative for chest pain GI: No nausea, vomiting, or diarrhea. 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 Chlamydia 2014 Complication of anesthesia migraines after anesthesia Fibromyalgia on gabapentin for this GERD (gastroesophageal reflux disease) Migraines perimenopause s/p TH 11/2018 rt ovary neg genetic testing Polysubstance abuse (HCC) depression Preeclampsia PTSD (post-traumatic stress disorder) Reactive attachment disorder Seizure (HCC) psychogenic non epileptic seizures Tobacco use PAST SURGICAL HISTORY Procedure Laterality Date ARTHRS AIDED ANT CRUCIATE LIGM RPR/AGMNTJ/RCNSTJ Right 01/27/2017 Right knee arthroscopic ACL reconstruction with hamstring autograft and medial menisectomy COLONOSCOPY FLX DX W/COLLJ SPEC WHEN PFRMD 06/12/2017 Colonoscopy [facility] - normal - Bx negative ESO (more content not included)... 09-05-2023 Miscellaneous Notes Items addressed in this encounter: MyChart Encounter Scheduled virtual follow up appt with Dante Mcekon to close encounter. Iona Luna MA September 05, 2023 3:27 PM 3:27 PM documented in this encounter [facility] 09-05-2023 History of Present illness Narrative This video visit was performed via [employer] Video Visit. Patient consented to receive health care services via virtual visit for this encounter Provider Location: Non[facility] Facility Patient Location: Patient Home or Place of Residence Risks, benefits, and limitations of receiving care virtually were discussed with the patient. The patient expressed understanding and is willing to proceed. Chief Complaint: Pain _ History of Present Illness: Fernando Guido is a 28 year old year old female being seen at [facility] for a evaluation and/or management of her chronic pain. Patient saw Dr. Lafleur for her initial consultation on 06/28/2023. The plan at that time was for the patient to increase gabapentin to 600 mg by mouth 2 times a day, IV lidocaine infusions and begin ketamine infusions. Patient reports the ketamine was not greatly effective and she had side effects including nausea, vomiting, diarrhea, and migraines. She has since elected to stop undergoing IV ketamine infusions due to this. Patient reports her pain is a 9/10 widespread throughout her entire body. Patient has fibromyalgia. Patient reports that she is experiencing much of her pain in her back. Patient reports she has a lot of muscular tenderness in the cervical and lumbar spine. PDMP website checked and validated. OARRS report reviewed and is consistent with the patients medical history and medication intake. None on file Last UDS: N/A No specialty comments available. No results found for: PREGAB , SUMM No results found for: SUMMAR Chronic Pain Functional Assessment Tools Pain Disability Index: Pain Disability Index 06/28/2023 09/01/2023 Family/Home Responsibilities: This category includes chores or duties performed around the house (e.g. yard work), errands or favors for other family members (e.g. driving the children to school) 8 9 Recreation: This category includes hobbies, sports, and other similar leisure time activities 8 10 Total disability Social Activity: This category refers to activities which involve participation with friends and acquaintances, other than family members. It includes parties, theater, concerts, dinning out, and other social functions 8 10 Total disability Occupation: This category refers to activities that are a part of or directly related to ones' job. This includes non-paying jobs as well, such as that of a housewife or volunteer worker 0 No disability 10 Total disability Sexual Behavior: This category refers to the frequency and quality of one's sex life 8 9 Self Care: This category includes activities which involve personal maintenance and independent daily living (e.g. taking a shower, driving, getting dress, etc) 8 9 Life Support Activity: This category refers to basic-life supporting behaviors such as eating, sleeping, and breathing 8 8 PDI Score 48 65 Pain Enjoyment of Life and General Activity Scale (0-10): PEG: A Three-Item Scale Assessing Pain Intensity and Interference What number best describes your pain on average in the past week?: 9 (09/01/2023 8:29 PM) What number best describes how, during the past week, pain has interfered with your enjoyment of life?: 9 (09/01/2023 8:29 PM) What number best describes how, during the past week, pain has interfered with your general activity?: 9 (09/01/2023 8:29 PM) REVIEW OF SYSTEMS: GENERAL: No weight loss or fevers RESPIRATORY: Negative for cough CARDIOVASCULAR: Negative for chest pain GI: No nausea, vomiting, or diarrhea. 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 Chlamydia 2014 Complication of anesthesia migraines after anesthesia Fibromyalgia on gabapentin for this GERD (gastroesophageal reflux disease) Migraines perimenopause s/p TH 11/2018 rt ovary neg genetic testing Polysubstance abuse (HCC) depression Preeclampsia PTSD (post-traumatic stress disorder) Reactive attachment disorder Seizure (HCC) psychogenic non epileptic seizures Tobacco use PAST SURGICAL HISTORY Procedure Laterality Date ARTHRS AIDED ANT CRUCIATE LIGM RPR/AGMNTJ/RCNSTJ Right 01/27/2017 Right knee arthroscopic ACL reconstruction with hamstring autograft and medial menisectomy COLONOSCOPY FLX DX W/COLLJ SPEC WHEN PFRMD 06/12/2017 Colonoscopy [facility] - normal - Bx negative ESOPHAGOGASTRODUODENOSCOPY TRANSORAL DIAGNOSTIC 06/12/2017 EGD - duodenitis, gastritis, superfical gastric ulcers, HYSTERECTOMY 11/2018 and tubes, benign pathology REMOVAL OF OVARY(S) Left 05/2020 benign path- see 08/13 msg TUBAL LIGATION HX FAMILY HISTORY Adopted: Yes Problem Relation Age of Onset BRCA Positive Mother BRCA1 Seizures Mother Thyroid Mother Breast Cancer Mother 28 other (Fibromylagia) Mother Seizures Father Heart Father 39 OH other (autism, fragile x) Sister fathers side other (SLE) Sister other (Down syndrome) Sister mother's side ADD/ADHD Brother mother's side Bipolar disorder Brother Autism Brother other (Autism/paternal 1/2) Brother father s side Alcohol/Drug Brother mother's side Bipolar disorder Brother Paranoid behavior Brother Bipolar disorder Brother other (suicide) Brother Bipolar disorder Brother Thyroid Maternal Grandmother Seizures Maternal Grandmother Breast Cancer Maternal Grandmother 33 Ovarian cancer Maternal Grandmother 45 BRCA Positive Maternal Grandmother BRCA1 Seizures Maternal Grandfather Thyroid Cancer Maternal Grandfather Seizures Paternal Grandmother Breast Cancer Paternal Grandmother 35 other (Coagulopathy) Paternal Grandmother Seizures Paternal Grandfather Pancreatic Cancer Paternal Grandfather other (Coagulopathy) Paternal Grandfather other (healthy) Daughter other (pneumonia) Daughter other (border line Autism) Son other (healthy) Son other (healthy) Son other (Leukemia) Paternal Aunt other (Coagulopathy) Paternal Aunt Breast Cancer Paternal Aunt 14 Four primaries BRCA Positive Paternal Aunt BRCA2 Colon Cancer Paternal Uncle 48 Ovarian cancer Paternal cousin 25 Social History Tobacco Use Smoking status: Every Day Packs/day: 1.5 Types: Cigarettes Start date: 07/28/2006 Smokeless tobacco: Former Types: Chew Tobacco comments: vape Substance Use Topics Alcohol use: Not Currently Comment: occ. glass of wine every few months Drug use: Not Currently Types: Amphetamines, Benzodiazepines, Cocaine, Crack Cocaine, Heroin, Marijuana, Narcotics, Opiates Allergies: Clindamycin Hives, Shortness of Breath Dicyclomine Itching Flagyl [Metronidazo* Itching Keflex [Cephalexin] Anaphylaxis Latex Rash Mobic [Meloxicam] Other: See Comments Comment:Chest pain Penicillin Hives Comment:Per pt anything in the penicillin family she is allergic to Prednisone Rash, Swelling Comment:Rash and tongue swelling 20 mins after taking prednisone cream Procardia [Nifedipi* Hives Comment:Hives and seizures per pt Progesterone Aqueous Rash Comment:Progesterone cream only Shellfish Derived Swelling Comment:Throat swells Sulfa (Sulfonamide * Hives Terbutaline Hives Comment:Per pt has hives and seizures Tessalon [Benzonata* Rash [id number] Anti* Contraindication-Medical Surgical Comment:Had CVA 12/2022 Zofran [Ondansetron* Swelling Current Outpatient Medications Medication Sig gabapentin (NEURONTIN) 600 mg tablet Take 1 tablet by mouth every 8 hours as needed for up to 90 days. lidocaine (LIDODERM) 5 % Apply 1 Patch as directed once daily. estradiol (DANNIELLE) 0.1 mg/24 hr Apply 1 Patch as directed two times a week. every 84 hrs Cholecalciferol, Vitamin D3, 125 mcg (5,000 unit) cap Take 1 capsule by mouth once daily. one po daily w K2 lurasidone (LATUDA) 80 mg tablet Take 80 mg by mouth once daily. chlorzoxazone (PARAFON FORTE DSC) 500 mg tablet Take 1 tablet by mouth four times a day as needed. prochlorperazine (COMPAZINE) 10 mg tablet Take 1 tablet by mouth every 8 hours as needed. azelastine 0.1% nasal spray Use 2 Sprays in each nostril once daily. busPIRone (BUSPAR) 15 mg tablet Take 15 mg by mouth three times a day. cetirizine (ZYRTEC) 10 mg tablet hydrOXYzine HCl (ATARAX) 50 mg tablet Take 50 mg by mouth three times a day as needed. lamoTRIgine (LAMICTAL) 100 mg tablet Take 1 tablet by mouth every afternoon. prazosin (MINIPRESS) 1 mg cap Take 1 mg by mouth at bedtime as needed. traZODone (DESYREL) 50 mg tablet take 1 tablet by mouth once daily at bedtime if needed METOPROLOL TARTRATE ORAL Take 25 mg by mouth daily at bedtime. lithium carbonate 600 mg capsule Total of 1800 mg per day No current facility-administered medications for this visit. PHYSICAL EXAMINATION: VIDEO EXAM: (performed via video enabled technology) GENERAL: alert and appropriate, in no distress, well-hydrated, well nourished, and happy, smiling, interactive HEAD: normocephalic, no abnormality or lesion noted RESPIRATORY: breathing non-labored NEUROLOGIC: no obvious deficit ASSESSMENT: Patient is stable. Chronic pain is persistent. Medications are helping Fernando Guido to have an improved quality of life. Patient compliance with Opioid Contract: not applicable Encounter Diagnosis ICD-10-CM 1. Other chronic pain G89.29 2. Myofascial pain syndrome M79.18 SURGICAL REQUEST - ELECTIVE (02/2020) 3. Fibromyalgia M79.7 4. Chronic pain disorder G89.4 PLAN: The patient understands the goal of our treatment is a reduction in pain and/or an improved level of functioning with activities of daily living. If at any time the patient does not feel the medications are helping them to achieve these goals, the medications may be discontinued. The patient reports a reduction in pain and/or an improved level of functioning with activities of daily living, denies any significant adverse effects, is compliant with the pain management agreement and there are no signs of medication misuse, abuse or diversion; therefore, the medications will be continued. OARRS checked. Prior patient of Dr. Virgen years ago. At that time she was treated with combination of gabapentin and ketamine infusions. She also uses lidocaine patches. This was all effective for her at that time however the patient is currently not tolerating IV ketamine infusions and has since stopped taking this medication. Patient continues to take gabapentin 600 mg by mouth 3 times a day and is tolerating this without side effects. Patient to continue current regimen. Continue lidocaine patches. Patient has already discontinued undergoing IV ketamine infusions Order entered for patient undergo trigger point injections of the cervical and lumbar spine. Patient to undergo a series of 3 trigger point injections. Order placed for trigger point injection #[address] Lafleur. Follow-up virtually in 1 month. Shashi Rai APRN.HARSH documented in this encounter [facility] 08-31-2023 Miscellaneous Notes Patient name and was confirmed at initiation of discussion. Fernando Guido's Multi-Cancer panel through [facility] was negative for a pathogenic variant. No BRCA1 or BRCA2 mutations were identified, though we did not obtain a copy of her affected relatives' genetic test results. 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 No changes are recommended to her management, based on this result. Please see BackerKit message for further discussion. SYL Bustillos Licensed, Certified Genetic Counselor documented in this encounter [facility] 08-29-2023 Miscellaneous Notes She will need another office appointment with Dante or to discuss other options. At this point in time, I am not certain what the other options would be. Pt does not follow up until 10/25/23. Rhianna Tomlinson RN August 29, 2023 1:24 PM documented in this encounter [facility] 08-23-2023 Note HNO ID: [id number] Author: LEXY BISHOP RT(R) Service: Radiology Author Type: Technologist Type: Progress Notes Filed: 08/23/2023 15:41 Note Text: Radiology Service Progress Note DATE OF SERVICE: August 23, 2023 TIME: 3:41 PM PATIENT IDENTITY VERIFICATION COMPLETED USING TWO (2) STANDARD IDENTIFIERS: Name and Date of confirmed by patient verbally and Name and Date of confirmed by identification band. FALL SCREENING: Has the patient had 2 falls in the last year or 1 fall with injury or currently using an Ambulatory Assistive Device (Walker, Cane, Wheelchair, Crutches, etc.)? No PATIENT GENDER DATA: Female. status: : No status: NO. PATIENT RELEVANT IMPLANT DATA REVIEWED: Yes PATIENT PRESENTS WITH AN IMPLANTABLE OR ATTACHED PHOTO PRINT SPECIALIST: No ALLERGIES: Reviewed and unchanged CONTRAST ALLERGY: NO. EXAM: MRI - CONTRAST TYPE: GROUP II PERIPHERAL IV DATA: Ambulatory: SEE NURSE NOTE RADIOLOGY DEPARTMENT: MR; Exam(s) Completed: Chest: Breast SIGNATURE: RT Haley(R) PATIENT NAME: Fernando Guido DATE: August 23, 2023 TIME: 3:41 PM [facility] 08-22-2023 Note HNO ID: [id number] Author: GORDO LAFLEUR MD Service: ? Author Type: Anesthesiologist Type: Progress Notes Filed: 08/22/2023 16:32 Note Text: PROCEDURE: Ketamine infusion Therapy DATE OF SERVICE: August 22, 2023 PREPROCEDURE DIAGNOSES: Neuropathic pain, chronic pain syndrome NO APPARENT CONTRAINDICATIONS TO IV KETAMINE ANESTHESIA: IV ketamine, Versed COMPLICATIONS: None CONSENT: The risks and benefits of ketamine infusion therapy were discussed with the patient. The patient verbalizes understanding and wishes to proceed with the infusion therapy at this time for control of intractable pain. Informed consent was thereby obtained. DESCRIPTION OF PROCEDURE: After written informed consent was obtained as above, the patient was taken to the operating room. Standard ASA monitors were applied. O2 was also applied. The patient received 2 mg of IV Versed by the prior to initiation of the ketamine infusion. The initial verbal analogue scale at the beginning of the infusion was 7 on a scale from 0 to 10. The patient's pain scale was monitored for the next 15-minute increments. The ketamine infusion was initiated at a dose of 0.75 mg/kg (total 55 mg) was infused over 30 minutes. The patient was monitored closely during the entire infusion. The patient's vital signs remained stable throughout the postoperative period. They were given written instructions to follow up at [facility] in the next 4 to 6 weeks for further plan of care and overall evaluation. COMMENTS: Repeat in 4 weeks 08-09-2023 Note HNO ID: [id number] Author: TEODORA MORAN LGC Service: ? Author Type: Genetic Counselor Type: Progress Notes Filed: 08/15/2023 12:25 Note Text: [facility] Consultation Note Genetic Counselor: Teodora Moran, , [facility] Patient: Fernando Guido Patient Name and confirmed at initiation of visit. This visit was conducted virtually via [employer]Bowl. I have communicated my name and active licensure. The patient's identity and physical location were verified at the time of this visit. Either the patient or their legal outside medical sales representative has been informed of the risks and benefits of -- and alternatives to -- treatment through a remote evaluation and consents to proceed with the evaluation remotely. HIGH LEVEL SUMMARY: The patient's family history is potentially suggestive of a hereditary cancer syndrome, including Hereditary Breast and Ovarian Cancer Syndrome. The patient provided informed consent for Multi-Cancer panel through [facility]. Results are expected in 3 weeks. IDENTIFICATION AND CHIEF COMPLAINT: Dr. Tristan Khan requested a consultation for genetic counseling and risk assessment for Fernando Guido, a 28 year old female, for discussion of her family history of cancer. She presents to clinic today to discuss the possibility of a genetic predisposition to cancer, and to further clarify her risks, as well as her family members' risks for cancer. HISTORY OF PRESENT ILLNESS: Fernando Guido is a 28 year old female with no personal history of cancer. PAST MEDICAL HISTORY Diagnosis Date Abnormal Pap smear of cervix TH ACL tear right, s/p repair in 2016 ADHD (attention deficit hyperactivity disorder) Anemia Anxiety Asthma Bipolar disorder (HCC) Chichi Alejo [facility] type 1 Blind right eye post stroke Chlamydia 2014 Complication of anesthesia migraines after anesthesia Fibromyalgia on gabapentin for this GERD (gastroesophageal reflux disease) Migraines perimenopause s/p TH 11/2018 rt ovary remains Polysubstance abuse (HCC) depression Preeclampsia PTSD (post-traumatic stress disorder) Reactive attachment disorder Seizure (HCC) psychogenic non epileptic seizures Tobacco use PAST SURGICAL HISTORY Procedure Laterality Date ARTHRS AIDED ANT CRUCIATE LIGM RPR/AGMNTJ/RCNSTJ Right 01/27/2017 Right knee arthroscopic ACL reconstruction with hamstring autograft and medial menisectomy COLONOSCOPY FLX DX W/COLLJ SPEC WHEN PFRMD 06/12/2017 Colonoscopy [facility] - normal - Bx negative ESOPHAGOGASTRODUODENOSCOPY TRANSORAL DIAGNOSTIC 06/12/2017 EGD - duodenitis, gastritis, superfical gastric ulcers, HYSTERECTOMY 11/2018 TH and tubes, benign pathology REMOVAL OF OVARY(S) Left 05/2020 benign path- see 08/13 ms TUBAL LIGATION HX CANCER SURVEILLANCE HISTORY: Mammograms: No Breast MRI's: No Breast Biopsies: No Colonoscopy: Yes / twice EGD: No GI Polyps: Yes / she reports 6 polyps have been removed Dermatology: Yes / normal skin checks REPRODUCTIVE HISTORY AND PERSONAL RISK ASSESSMENT FACTORS: Uterus Intact: No Ovaries Intact: she has had her tubes and left ovary removed SOCIAL HISTORY: Social History Tobacco Use Smoking status: Every Day Packs/day: 1.5 Types: Cigarettes Start date: 07/28/2006 Smokeless tobacco: Former Types: Chew Tobacco comments: vape Substance Use Topics Alcohol use: Not Currently Comment: occ. glass of wine every few months Drug use: Not Currently Types: Amphetamines, Benzodiazepines, Cocaine, Crack Cocaine, Heroin, Marijuana, Narcotics, Opiates FAMILY HISTORY: We obtained a detailed, 4-generation family history. Significant diagnoses are listed below: FAMILY HISTORY Adopted: Yes Problem Relation Age of Onset BRCA Positive Mother BRCA1 Seizures Mother Thyroid Mother Breast Cancer Mother 28 other (Fibromylagia) Mother Seizures Father Heart Father 39 OH other (autism, fragile x) Sister fathers side other (SLE) Sister other (Down syndrome) Sister mother's side ADD/ADHD Brother mother's side Bipolar disorder Brother Autism Brother other (Autism/paternal 1/2) Brother father s side Alcohol/Drug Brother mother's side Bipolar disorder Brother Paranoid behavior Brother Bipolar disorder Brother other (suicide) Brother Bipolar disorder Brother Thyroid Maternal Grandmother Seizures Maternal Grandmother Breast Cancer Maternal Grandmother 33 Ovarian cancer Maternal Grandmother 45 BRCA Positive Maternal Grandmother BRCA1 Seizures Maternal Grandfather Thyroid Cancer Maternal Grandfather Seizures Paternal Grandmother Breast Cancer Paternal Grandmother 35 other (Coagulopathy) Paternal Grandmother Seizures Paternal Grandfather Pancreatic Cancer Paternal Grandfather other (Coagulopathy) Paternal Grandfather other (healthy) Daughter (more content not included)... [facility] 07-25-2023 Note HNO ID: [id number] Author: Gordo Lafleur MD Service: ? Author Type: Anesthesiologist Type: Progress Notes Filed: 07/25/2023 4:35 PM Note Text: PROCEDURE: Ketamine infusion Therapy DATE OF SERVICE: July 25, 2023 PREPROCEDURE DIAGNOSES: Neuropathic pain, chronic pain syndrome NO APPARENT CONTRAINDICATIONS TO IV KETAMINE ANESTHESIA: IV ketamine, Versed COMPLICATIONS: None CONSENT: The risks and benefits of ketamine infusion therapy were discussed with the patient. The patient verbalizes understanding and wishes to proceed with the infusion therapy at this time for control of intractable pain. Informed consent was thereby obtained. DESCRIPTION OF PROCEDURE: After written informed consent was obtained as above, the patient was taken to the operating room. Standard ASA monitors were applied. O2 was also applied. The patient received 2 mg of IV Versed by the prior to initiation of the ketamine infusion. The initial verbal analogue scale at the beginning of the infusion was 7 on a scale from 0 to 10. The patient's pain scale was monitored for the next 15-minute increments. The ketamine infusion was initiated at a dose of 0.75 mg/kg (total 55 mg) was infused over 30 minutes. The patient was monitored closely during the entire infusion. The patient's vital signs remained stable throughout the postoperative period. They were given written instructions to follow up at [facility] in the next 4 to 6 weeks for further plan of care and overall evaluation. COMMENTS: Repeat in 4 weeks 07-21-2023 Note HNO ID: [id number] Author: Stone Alvarez APRN.MANAGER BANQUET Service: ? Author Type: Nurse Practitioner Type: Progress Notes Filed: 07/21/2023 4:07 PM Note Text: MEDICAL BREAST PATIENT NAME: Fernando Guido 07/21/2023 REFERRAL: She is referred by Tristan Khan MD for an opinion regarding right bloody nipple discharge. My final recommendations will be communicated back to the requesting physician by the way of the shared medical record, fax, or via US Mail. HISTORY of PRESENT ILLNESS: Fernando Guido is a 28 year old year old premenopausal woman who presents to the [facility] for evaluation of bloody right nipple discharge, risk assessment and to establish breast care. The patient denies any breast masses or skin changes. She reports right spontaneous nipple discharge which started about one year ago. The nipple discharge is intermittent, bloody and only on the right. She denies any left nipple discharge. She noticed the discharge on her clothing and in her bra and this lasts for 3-4 days. During this time, she will feel sharp pain in her nipple. She has never tried expressing any discharge and the last occurrence was 3 months ago. She has not started any new medications or experienced any trauma/piercing's. She had bilateral breast US's completed on 06/05/[address] [facility] (report reviewed) - evaluating the right UIQ and left UOQ for palpable masses which was negative. She does not recall if subareolar imaging was completed on the right for her nipple discharge. A surgical consult was recommended and Radiology had suggested an annual breast MRI and mammogram due to FH. Has Patient had Genetic Testing? No, but she is scheduled on 08/08/2023 for counseling. She has a very compelling family history of Breast Cancer and BRCA mutation - Mother at 28 BRCA1+ MGM at 33 BRCA1+ Paternal aunt at unknown age x4 BRCA2+ PGM at 35 BRCA2+, also had ovarian cancer. (I have not reviewed any genetic testing results, this is per the patient) She is a current smoker. She had a hysterectomy for AUB in 03/2019 with negative pathology and has one ovary remaining. She is seeing Dr Khan and has been using HRT for possible premature ovarian failure of her remaining ovary. She has updated hormonal blood work ordered and plans to have this drawn soon. Her vitamin D level was No results found for: VITD25 . She takes vitamin D. BMD: 09/17/2019 Lowest T-score -0.5 normal in left hip. PERSONAL BREAST HISTORY: Past breast history (prior to this encounter) is as follows: Breast biopsy: No Breast cysts: Yes, right breast Breast surgery: Yes, 12/22/2021 right breast cyst aspiration in UOQ at 12:00. Breast cancer: No CANCER SURVEILLANCE: Mammograms: No Breast MRI: No Colonoscopy: Yes, 06/2023 negative per the patient RISK FACTORS FOR BREAST CANCER: Age at the onset of menses: 9 years of age. P: 5 Age at the of first child: 13 years of age. She breast fed for 7 months total. Age at menopause: at age 27. Post-menopausal hormone therapy: She is on Dannielle (estrogen patch) managed by Dr Khan She had a hysterectomy for AUB with bilateral salpingectomy with negative pathology in 03/2019. She has one ovary intact. She has had a hysterectomy and does not use control. History of Mantle Radiation prior to the age of 29: No Obesity: No, Body mass index is 26.01 kg/m?. 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 She has a history of stroke, PE, migraines WITH aura. PAST SURGICAL HISTORY: PAST SURGICAL HISTORY Procedure Laterality Date ARTHRS AIDED ANT CRUCIATE LIGM RPR/AGMNTJ/RCNSTJ Right 01/27/2017 Right knee arthroscopic ACL reconstruction with hamstring autograft and medial menisectomy COLONOSCOPY FLX DX W/COLLJ SPEC WHEN PFRMD 06/12/2017 Colonoscopy [facility] - normal - Bx negative ESOPHAGOGASTRODUODENOSCOPY TRANSORAL DIAGNOSTIC 06/12/2017 EGD - duodenitis, gastritis, super (more content not included)... [facility] 06-28-2023 Note HNO ID: [id number] Author: Gordo Lafleur MD Service: ? Author Type: Anesthesiologist Type: Progress Notes Filed: 06/28/2023 9:35 AM Note Text: Renate was used to dictate this note and therefore there may be some typographical errors. I attest to the fact that I spent a total of 26 min with the patient to include: Face to face time and non face to face time such as: Reviewing test's, reviewing medical records, reviewing imaging studies, ordering tests, etc. Patient is being referred to us for chronic pain. All notes pertaining to today's office visit were reviewed. This includes an MRI of the right hip dated 08/26/2021, x-ray of the right knee dated 08/26/2021. PE: Alert and oriented comes in the clinic today in a wheelchair. Minimal movement of right upper and lower extremity status post stroke. Multiple trigger points tender points appreciated. Mood and affect normal limits. Vital signs as indicated. In no acute distress. Dx: Chronic pain syndrome, neuropathic pain, myalgia, loss of cervical lordosis, significant muscle spasms to neck and right shoulder, status post CVA December 2022 with profound weakness and markedly diminished range of motion right upper and lower extremity, gait disturbance. Plan: OARRS checked. Prior patient of Dr. Virgen years ago. At that time she was treated with combination of gabapentin and ketamine infusions. She also uses lidocaine patches. This was all effective for her and she would like to begin these treatments again. Currently on gabapentin 300 mg 3 times a day. I will increase to 600 milligrams 3 times a day. Lidocaine patches prescribed. Order placed for ketamine infusions every 4 weeks. Will start at 0.75 mg/kg. It appears that the patient may have been on a dose of 2 mg/kg as a maximum dose previously when she was undergoing these infusions every [address] Virgen. Follow-up office visit in 4 months. 06-28-2023 History of Present illness Narrative Dragon was used to dictate this note and therefore there may be some typographical errors. I attest to the fact that I spent a total of 26 min with the patient to include: Face to face time and non face to face time such as: Reviewing test's, reviewing medical records, reviewing imaging studies, ordering tests, etc. Patient is being referred to us for chronic pain. All notes pertaining to today's office visit were reviewed. This includes an MRI of the right hip dated 08/26/2021, x-ray of the right knee dated 08/26/2021. PE: Alert and oriented comes in the clinic today in a wheelchair. Minimal movement of right upper and lower extremity status post stroke. Multiple trigger points tender points appreciated. Mood and affect normal limits. Vital signs as indicated. In no acute distress. Dx: Chronic pain syndrome, neuropathic pain, myalgia, loss of cervical lordosis, significant muscle spasms to neck and right shoulder, status post CVA December 2022 with profound weakness and markedly diminished range of motion right upper and lower extremity, gait disturbance. Plan: OARRS checked. Prior patient of Dr. Virgen years ago. At that time she was treated with combination of gabapentin and ketamine infusions. She also uses lidocaine patches. This was all effective for her and she would like to begin these treatments again. Currently on gabapentin 300 mg 3 times a day. I will increase to 600 milligrams 3 times a day. Lidocaine patches prescribed. Order placed for ketamine infusions every 4 weeks. Will start at 0.75 mg/kg. It appears that the patient may have been on a dose of 2 mg/kg as a maximum dose previously when she was undergoing these infusions every [address] Virgen. Follow-up office visit in 4 months. documented in this encounter [facility] 06-21-2023 Note HNO ID: [id number] Author: Tristan Khan MD Service: ? Author Type: Physician Type: Progress Notes Filed: 06/23/2023 11:13 AM Note Text: Virtual visit with me via [employer] FAX to pharm last seen by me 11/2021 distance reviewed interval history I have communicated my name and active licensure. The patient's identity and physical location were verified at the time of this visit. Either the patient or their legal outside medical sales representative has been informed of the risks and benefits of -- and alternatives to -- treatment through a remote evaluation and consents to proceed with the evaluation remotely. PHYSICIAN NOTE OF PERSONAL INVOLVEMENT IN CARE: I have interviewed the patient and updated the PFS history and ROS as necessary. I have re-performed the HPI, Assessment and the parts of the HPI, ROS, and assessment and plan were copied from my previous visit were thoroughly reviewed line by line with changes made to update the current medical status. Other parts that were not relevant were deleted and the new assessment and plan is as noted below PCP Gaby Lerner MD, Fernando is a 28 year old now re- white female starts school next year lives in [place] due a stroke she had 12/2022 (said from hear) had 5 children one here for Women's [facility] virtual follow up on HT off ET ran out off last year now 2 yrs clean after relapse has bloody breast had breast ctr appt for ain told needs brca gene testing s/p TH ovaries was on oral P for sleep and hx of sz 03/2019 1. Uterus and cervix, hysterectomy (A) Cervix - Chronic cervicitis and hyperkeratosis. Endometrium - Proliferative endometrium. Myometrium - No significant pathologic findings. 2. Bilateral fallopian tubes, bilateral salpingectomies (B) - Hydrosalpinx. Component Latest Ref Rng AND Units 09/22/2021 Transferrin 200 - 360 mg/dL 276 Component Latest Ref Rng AND Units 12/20/2017 02/13/2019 06/03/2019 08/05/2019 FSH mU/mL 2.8 8.7 7.9 Estradiol 17B pg/mL 103 47 26 TSH 0.270 - 4.200 uU/mL 2.100 OB History T4 L4 SAB3 TAB1 Ectopic0 Multiple0 Live Births5 Comment: Doesn't have custody of any of her children- secondary to psycholgic diagnoses in past. All losses were followed by a international exchange coordinator and the children delivered at home and remains were cremated except for alfonzo her 32 weeker. Immunization History Administered Date(s) Administered COVID-19 original vaccine, full dose, monovalent (MODERNA) 10/17/2020 11/14/2020 06/24/2021 diphtheria tetanus pertussis (DTaP) vaccine, unspecified formulation 1994 1994 1994 06/19/1995 04/27/1999 human papillomavirus (HPV4) vaccine, quadrivalent (GARDASIL) 04/29/2009 08/19/2009 11/16/2009 influenza (IIV4) vaccine, age 6 mo - 64 yr, quadrivalent (AFLURIA, FLULAVAL, FLUZONE) 03/22/2018 06/03/2019 influenza vaccine, unspecified formulation 05/17/2023 measles mumps rubella (MMR) vaccine (M-M-R II, PRIORIX) 10/03/1995 04/27/1999 meningococcal (MenACWY-D) vaccine, quadrivalent (MENACTRA) 04/29/2009 02/16/2012 pneumococcal (PPV23) vaccine, 23 valent (PNEUMOVAX 23) 10/31/2013 11/28/2015 01/02/2017 poliovirus vaccine, unspecified formulation 1994 1994 1994 04/27/1999 tetanus diphtheria pertussis (Tdap) vaccine, age 7+ yr (ADACEL, BOOSTRIX) 02/10/2011 05/22/2012 10/30/2013 11/11/2015 05/25/2017 09/04/2020 varicella (BERT) vaccine (VARIVAX) 05/14/1999 05/22/2012 BREAST HISTORY First degree relatives: mother PM Second degree relatives: MGM Personal history of breast biopsy: 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 Patient's last menstrual period was 11/04/2018. Age at menopause onset: 25 Menopausal symptom assessment: Vasomotor symptoms: yes better on ET still has one ovary Urinary incontinence AND symptoms: no incontinence CARDIOVASCULAR Lipid AND CV risk assessment: exsmoker no DVT no HTN no DM no OH no stroke BONE STATUS Discussed calcium in the diet and take separate oral 2,000 iu vitamin D3 daily to up to 5,000 international unit(s) daily Bone mineral density :08/2019 normal Family History of hip Fx: no HISTORIES HISTORIES FAMILY HISTORY Adopted: Yes Problem Relation Age of Onset other (Breast Cancer BRCA1) Mother Seizures Mother Thyroid Mother Ovarian cancer Mother other (Fibromylagia) Mother Seizures Father Heart Father 39 OH other (autism, fragile x) Sister fathers side other (SLE) Sister other (Down syndrome) Sister mother's side ADD/ADHD Brother mother's side Bipolar disorder Brother Autism Brother other (Autism/paternal 1/2) Brother father s side Alcohol/Drug Brother mother's side Bipolar disorder Brother Paranoid behavior Brother Bipolar disorder Brother other (suicide) Brother Bipolar disorder Brother Cervical Cancer Maternal Grandmother Thyroid Maternal Grandmother (more content not included)... [facility] 06-21-2023 History of Present illness Narrative Virtual visit with me via [employer] FAX to pharm last seen by me 11/2021 distance reviewed interval history I have communicated my name and active licensure. The patient's identity and physical location were verified at the time of this visit. Either the patient or their legal outside medical sales representative has been informed of the risks and benefits of -- and alternatives to -- treatment through a remote evaluation and consents to proceed with the evaluation remotely. PHYSICIAN NOTE OF PERSONAL INVOLVEMENT IN CARE: I have interviewed the patient and updated the PFS history and ROS as necessary. I have re-performed the HPI, Assessment and the parts of the HPI, ROS, and assessment and plan were copied from my previous visit were thoroughly reviewed line by line with changes made to update the current medical status. Other parts that were not relevant were deleted and the new assessment and plan is as noted below PCP Gaby Lerner MD, Fernando is a 28 year old now re- white female starts school next year lives in [place] due a stroke she had 12/2022 (said from hear) had 5 children one here for Women's Health [facility] virtual follow up on HT off ET ran out off last year now 2 yrs clean after relapse has bloody breast had breast ctr appt for ain told needs brca gene testing s/p TH ovaries was on oral P for sleep and hx of sz 03/2019 1. Uterus and cervix, hysterectomy (A) Cervix - Chronic cervicitis and hyperkeratosis. Endometrium - Proliferative endometrium. Myometrium - No significant pathologic findings. 2. Bilateral fallopian tubes, bilateral salpingectomies (B) - Hydrosalpinx. Component Latest Ref Rng & Units 09/22/2021 Transferrin 200 - 360 mg/dL 276 Component Latest Ref Rng & Units 12/20/2017 02/13/2019 06/03/2019 08/05/2019 FSH mU/mL 2.8 8.7 7.9 Estradiol 17B pg/mL 103 47 26 TSH 0.270 - 4.200 uU/mL 2.100 OB History T4 L4 SAB3 TAB1 Ectopic0 Multiple0 Live Births5 Comment: Doesn't have custody of any of her children- secondary to psycholgic diagnoses in past. All losses were followed by a international exchange coordinator and the children delivered at home and remains were cremated except for alfonzo her 32 weeker. Immunization History Administered Date(s) Administered COVID-19 original vaccine, full dose, monovalent (MODERNA) 10/17/2020 11/14/2020 06/24/2021 diphtheria tetanus pertussis (DTaP) vaccine, unspecified formulation 1994 1994 1994 06/19/1995 04/27/1999 human papillomavirus (HPV4) vaccine, quadrivalent (GARDASIL) 04/29/2009 08/19/2009 11/16/2009 influenza (IIV4) vaccine, age 6 mo - 64 yr, quadrivalent (AFLURIA, FLULAVAL, FLUZONE) 03/22/2018 06/03/2019 influenza vaccine, unspecified formulation 05/17/2023 measles mumps rubella (MMR) vaccine (M-M-R II, PRIORIX) 10/03/1995 04/27/1999 meningococcal (MenACWY-D) vaccine, quadrivalent (MENACTRA) 04/29/2009 02/16/2012 pneumococcal (PPV23) vaccine, 23 valent (PNEUMOVAX 23) 10/31/2013 11/28/2015 01/02/2017 poliovirus vaccine, unspecified formulation 1994 1994 1994 04/27/1999 tetanus diphtheria pertussis (Tdap) vaccine, age 7+ yr (ADACEL, BOOSTRIX) 02/10/2011 05/22/2012 10/30/2013 11/11/2015 05/25/2017 09/04/2020 varicella (BERT) vaccine (VARIVAX) 05/14/1999 05/22/2012 BREAST HISTORY First degree relatives: mother PM Second degree relatives: MGM Personal history of breast biopsy: 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 Patient's last menstrual period was 11/04/2018. Age at menopause onset: 25 Menopausal symptom assessment: Vasomotor symptoms: yes better on ET still has one ovary Urinary incontinence & symptoms: no incontinence CARDIOVASCULAR Lipid & CV risk assessment: exsmoker no DVT no HTN no DM no OH no stroke BONE STATUS Discussed calcium in the diet and take separate oral 2,000 iu vitamin D3 daily to up to 5,000 international unit(s) daily Bone mineral density :08/2019 normal Family History of hip Fx: no HISTORIES HISTORIES FAMILY HISTORY Adopted: Yes Problem Relation Age of Onset other (Breast Cancer BRCA1) Mother Seizures Mother Thyroid Mother Ovarian cancer Mother other (Fibromylagia) Mother Seizures Father Heart Father 39 OH other (autism, fragile x) Sister fathers side other (SLE) Sister other (Down syndrome) Sister mother's side ADD/ADHD Brother mother's side Bipolar disorder Brother Autism Brother other (Autism/paternal 1/2) Brother father s side Alcohol/Drug Brother mother's side Bipolar disorder Brother Paranoid behavior Brother Bipolar disorder Brother other (suicide) Brother Bipolar disorder Brother Cervical Cancer Maternal Grandmother Thyroid Maternal Grandmother Seizures Maternal Grandmother Breast Cancer Maternal Grandmother Seizures Maternal Grandfather Seizures Paternal Grandmother other (Lung Cancer) Paternal Grandmother other (Coagulopathy) Paternal Grandmother Seizures Paternal Grandfather other (Pancreatic Cancer) Paternal Grandfather other (Coagulopathy) Paternal Grandfather other (healthy) Daughter other (pneumonia) Daughter other (border line Autism) Son other (healthy) Son other (healthy) Son other (Leukemia) Paternal Aunt other (Coagulopathy) Paternal Aunt PAST MEDICAL HISTORY Diagnosis Date Abnormal Pap smear of cervix TH ACL tear right, s/p repair in 2016 ADHD (attention deficit hyperactivity disorder) Anemia Anxiety Asthma Bipolar disorder (HCC) [facility] Ale[facility] type 1 Blind right eye post stroke Chlamydia 2014 Complication of anesthesia migraines after anesthesia Fibromyalgia on gabapentin for this GERD (gastroesophageal reflux disease) Migraines perimenopause s/p TH 11/2018 rt ovary remains Polysubstance abuse (HCC) depression Preeclampsia PTSD (post-traumatic stress disorder) Reactive attachment disorder Seizure (HCC) psychogenic non epileptic seizures Tobacco use PAST SURGICAL HISTORY Procedure Laterality Date ARTHRS AIDED ANT CRUCIATE LIGM RPR/AGMNTJ/RCNSTJ Right 01/27/2017 Right knee arthroscopic ACL reconstruction with hamstring autograft and medial menisectomy COLONOSCOPY FLX DX W/COLLJ SPEC WHEN PFRMD 06/12/2017 Colonoscopy [facility] - normal - Bx negative ESOPHAGOGASTRODUODENOSCOPY TRANSORAL DIAGNOSTIC 06/12/2017 EGD - duodenitis, gastritis, superfical gastric ulcers, HYSTERECTOMY 11/2018 TH and tubes, benign pathology REMOVAL OF OVARY(S) Left 05/2020 benign path- see 08/13 ms TUBAL LIGATION HX Social History Tobacco Use Smoking status: Every Day Packs/day: 1.5 Types: Cigarettes Start date: 07/28/2006 Smokeless tobacco: Former Types: Chew Tobacco comments: 2 packs weekly Substance Use Topics Alcohol use: Yes Comment: [facility] Drug use: Not Currently Types: Amphetamines, Benzodiazepines, Cocaine, Crack Cocaine, Heroin, Marijuana, Narcotics, Opiates ROS: no cp sx, no gu sx, no dvt, no abn bleeding and see above UTD eye and dental PHYSICAL EXAM: had nl BMI 24 nl BP last check 98/68 looks well `Neuro: oriented in 3 spheres, right handed speech fine Psych: euthymic ASSESSMENT & PLAN: perimenopause vs early menopause s/p TH with VMS (normal dxa on estrogen check hormones she wants to be on dannielle 0.1 says helps her had stroke with OD blind and weakness discussed ONLY transdermal no pO mastalgia bloody dx breast BRCZ1 paternal line and BRCA2 maternal strong fam hx of breast ccancer see genetic and breast center discussed daily D3/K2 Hormone replacement therapy (HRT) Comment: reviewed r/b/a hx of bipolar substance abuse now sober HEALTH MAINTENANCE: Health information given. Women's Health patient information and counselling done. Counseled regarding risk/benefits/alternatives to Hormone Therapy and need for yearly re-evaluation. Living Will & Medical Power of Multigraph Operator recommended-she has Mammogram discussed age 44 NEEDS eval Colon cancer screening by age 45 & every 5-10 years. Bone mineral density age 44 IMMUNIZATIONS: per pcp LABS per PCP: Sincerely, Tristan Khan MD (Signed electronically to expedite mailing) c: Fernando Mayo documented in this encounter [facility] 06-19-2023 Note HNO ID: [id number] Author: Eva Shin APRN.MANAGER BANQUET Service: ? Author Type: Nurse Practitioner Type: Progress Notes Filed: 06/19/2023 5:01 PM Note Text: Headache Center Follow-up Visit Current Preventive: Botox Change needed for current preventive? No Current Abortive: Compazine, Parafon Forte Frequency of Abortive Use (per month): 10 Miscellaneous Patient Concerns: Has not had Botox since January 2022 due to having no insurance Impression: Intractable chronic migraine without aura and without status migrainosus (primary encounter diagnosis) Plan: Refilled Compazine AND Parafon Forte, (written RX given) Follow-Up Onabotulinum Toxin A (BotoxTM) for Migraine Indication: Chronic Intractable Migraine Treatment #: 3 Referral Expiration: 05/24/2024 Prior to the initiation of the FIRST treatment with Onabotulinum Toxin A, the patient reported the following average headache frequency over the past 3 MONTHS: Number of moderate-severe migraine days/month: 28 Number of mild migraine days/month: 0 Number of headache free days/month: 2 (48 headache-free hours) Migraine severity: 05/02 After treatment with Onabotulinum Toxin A: Number of moderate-severe migraine days/month: 20 Number of mild migraine days/month: 0 Number of headache free days/month: 10 (240 headache-free hours) Migraine severity: 05/02 Patient reduction in overall migraine days: Yes Patient reduction in moderate-severe migraine days: Yes Patient reduction of headache hours by 100 hours or more: Yes (reduction of 192 hours) Individual has obtained clinical benefit deemed significant by individual or prescriber (Y/N): - last Botox 01/2022 Side effects: none Wearing off: Yes - 9 weeks after treatment The patient has been assessed for disorders which could contribute to breathing or swallowing difficulty, and there is no contraindication with PREEMPT Botox. There is no documented allergic reaction/hypersensitivity to any botulinum toxin and there is no active infection at proposed injection site. HEADACHE SCORES: Headache Questions 04/22/2023 05/19/2023 06/14/2023 ER visits since last office visit: - 3 - Hospital stays since last office visit - 0 - Limited ADLs in the last month: - 25 - Days missed from work or school in the last month: - 15 - Days headache pain free in the last month: - 5 - Days per month with ALL of the following symptoms - decreased productivity, light sensitivity and nausea: - 25 - Initial improvement of headache after botox injection at last visit: - Not applicable, I did not have a botox injection at my last visit - PRN medication usage in the last month: - 25 - Patient impression of improvement since last visit: Very much worse Very much worse Very much worse HIT-6 04/11/2023 05/19/2023 06/14/2023 HIT-6 - - - HIT-6 78 (Severe impact) 74 (Severe impact) 74 (Severe impact) RUPERTO - 2/7 SCORES 04/11/2023 05/19/2023 06/14/2023 RUPERTO-2 Score 6 6 6 RUPERTO-7 Score 21 21 21 Migraine Specific QOL - Higher scores indicate better HRQL 04/11/2023 05/19/2023 06/14/2023 Role Function-Restrictive Transformed Score (range: 0-100) 0 14.29 14.29 Role Function-Preventive Transformed Score (range: 0-100) 15 15 15 Emotional Function Transformed Score (range: 0-100) 0 0 0 PHQ-9 04/11/2023 05/19/2023 06/14/2023 Score 10 18 26 BP 108/56 Pulse 81 Resp 18 Ht 167.6 cm (5' 6 ) Wt 75.8 kg (167 lb) LMP 11/04/2018 BMI 26.95 kg/m? Patient name: Fernando Guido : 1995 ALLERGIES Allergen Reactions Clindamycin Hives, Shortness of Breath Dicyclomine Itching Flagyl [Metronidazo* Itching Keflex [Cephalexin] Anaphylaxis Latex Rash Mobic [Meloxicam] Other: See Comments Chest pain Penicillin Hives Per pt anything in the penicillin family she is allergic to Prednisone Rash, Swelling Rash and tongue swelling 20 mins after taking prednisone cream Procardia [Nifedipi* Hives Hives and seizures per pt Progesterone Aqueous Rash Progesterone cream only Shellfish Derived Swelling Throat swells Sulfa (Sulfonamide * Hives Terbutaline Hives Per pt has hives and seizures Tessalon [Benzonata* Rash Biahocth-8-Cr8 Anti* Contraindication-Medical Surgical Had CVA 12/2022 Zofran [Ondansetron* Swelling UNIVERSAL PROTOCOL / SAFETY CHECKLIST Procedure: Onabotulinum toxin A for migraine Informed Consent Consent Obtained: Written Loraine Protocol A moment to CARE was completed SIGN IN Personnel directly involved with the procedure wore the appropriate PPE Special Equipment: N/A Patient/Surrogate Stated/Verified: Patient name, Date of , Relevant allergies and Intended procedure TIME OUT Intended patient and procedure match the source document(s) Consent documented and matches the intended procedure No relevant labs, photos, and/or imaging studies were applicable for review. No correct side/site applicable for marking and visibility. No medica (more content not included)... [facility] 06-19-2023 Instructions Eva Shin, PLAN NURSE.MANAGER BANQUET - 06/19/2023 4:12 PM EST Instruction after Botox injection: - If you have any pain or swelling use ice, 20 min on and 20 min off. Do not rub or massage the area for 24 hrs. - If you have any neck stiffness, you may use heat and do stretching exercises. - This should improve over the next 5 days. - If it does not, call our office at [phone] for further instructions. [facility] ATTENTION Clinical Depression What you need to know and what you can do. Prior to your visit today, you completed a computerized survey. Your responses to some of the questions indicate you could be suffering from Clinical Depression. The typical symptoms of Clinical Depression are listed in the box below You checked off some or all of the symptoms, and indicated that they occur often enough to be bother-some. If this is accurate, then it is strongly recommended you get further professional help, especially if you feel hopeless or that life is not worth living (see (1) under Get Help). You may want to discuss this with a trusted friend or family member. Typical symptoms of Clinical Depression : Bad mood Trouble enjoying things you normally like to do Difficulty falling or staying asleep Feeling unusually bad about yourself (overly self-critical, worthless or guilty) Lack of usual energy level Lack of enthusiasm, motivation, or drive Trouble concentrating or making decisions (it can feel like memory loss) Loss of appetite (or sometimes over-eating) Being agitated, restless (or sluggish and slowed down) Feeling life just is not worth living or that you would be better off . GET HELP If you have symptoms of clinical depression, you can get help by doing one or more of the following: (1) Call the National Suicide Hotline or Call 589 (2) If you are already in treatment, make sure you contact and update your doctor or therapist. (3) Call the [facility] Department of Psychiatry & Psychology at or (ask for Psychiatry & Psychology appointments) (4) Call your primary care doctor to set up an appointment. (5) Call to set-up an appointment at one of the mental healthcare facilities in the [facility] (telephone numbers listed below). Mental Health Resources in the [facility] (in [place] unless otherwise noted): [facility] - [facility] [phone] [facility] - [address] [facility] [phone] Primitivo Garcia - [address] [phone] [facility] - [address] [phone] [facility] - [address] [phone] [facility] - [address] [phone] [facility] - [address] [facility] - [phone] [facility] - [phone] [facility] - [address] [place] [phone] [facility] - [address] [place] [phone] [facility] - [address] [facility] [place] [phone] [facility] - [phone] [facility] - [address] [place] [phone] [facility] - [address] [phone] [facility] - [address] [facility] [phone] [facility] [phone] [facility] - [address] [place] [address] [facility] - [address] [phone] [facility] Department of Psychiatry & Psychology. Appointments: or (ask for Psychiatry & Psychology appointments) If you are feeling suicidal, please call the National Suicide Hotline or Call 911 documented in this encounter [facility] 06-19-2023 History of Present illness Narrative Headache Center Follow-up Visit Current Preventive: Botox Change needed for current preventive? No Current Abortive: Compazine, Parafon Forte Frequency of Abortive Use (per month): 10 Miscellaneous Patient Concerns: Has not had Botox since January 2022 due to having no insurance Impression: Intractable chronic migraine without aura and without status migrainosus (primary encounter diagnosis) Plan: Refilled Compazine & Parafon Forte, (written RX given) Follow-Up Onabotulinum Toxin A (BotoxTM) for Migraine Indication: Chronic Intractable Migraine Treatment #: 3 Referral Expiration: 05/24/2024 Prior to the initiation of the FIRST treatment with Onabotulinum Toxin A, the patient reported the following average headache frequency over the past 3 MONTHS: Number of moderate-severe migraine days/month: 28 Number of mild migraine days/month: 0 Number of headache free days/month: 2 (48 headache-free hours) Migraine severity: 05/02 After treatment with Onabotulinum Toxin A: Number of moderate-severe migraine days/month: 20 Number of mild migraine days/month: 0 Number of headache free days/month: 10 (240 headache-free hours) Migraine severity: 05/02 Patient reduction in overall migraine days: Yes Patient reduction in moderate-severe migraine days: Yes Patient reduction of headache hours by 100 hours or more: Yes (reduction of 192 hours) Individual has obtained clinical benefit deemed significant by individual or prescriber (Y/N): - last Botox 01/2022 Side effects: none Wearing off: Yes - 9 weeks after treatment The patient has been assessed for disorders which could contribute to breathing or swallowing difficulty, and there is no contraindication with PREEMPT Botox. There is no documented allergic reaction/hypersensitivity to any botulinum toxin and there is no active infection at proposed injection site. HEADACHE SCORES: Headache Questions 04/22/2023 05/19/2023 06/14/2023 ER visits since last office visit: - 3 - Hospital stays since last office visit - 0 - Limited ADLs in the last month: - 25 - Days missed from work or school in the last month: - 15 - Days headache pain free in the last month: - 5 - Days per month with ALL of the following symptoms - decreased productivity, light sensitivity and nausea: - 25 - Initial improvement of headache after botox injection at last visit: - Not applicable, I did not have a botox injection at my last visit - PRN medication usage in the last month: - 25 - Patient impression of improvement since last visit: Very much worse Very much worse Very much worse HIT-6 04/11/2023 05/19/2023 06/14/2023 HIT-6 - - - HIT-6 78 (Severe impact) 74 (Severe impact) 74 (Severe impact) RUPERTO - 2/7 SCORES 04/11/2023 05/19/2023 06/14/2023 RUPERTO-2 Score 6 6 6 RUPERTO-7 Score 21 21 21 Migraine Specific QOL - Higher scores indicate better HRQL 04/11/2023 05/19/2023 06/14/2023 Role Function-Restrictive Transformed Score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 psychiatrist or accepting hospital entity as needed., Document contact information in Intake encounter, Note concern to providers about need for suicide precaution orders/constant observation, Follow-up and document disposition from patient's current level of care Low Suicide Risk Step 5: Documentation Risk Level : Suicide Risk ( Initial Screening):: Moderate Risk Actual risk determined to be : Moderate Clinical Observation: PT presented with flat affect and reported depressed ood following an aggressive episode in the ED where she was sedated. Relevant Mental Status Evaluation: Depressed mood, Hx of Bipolar Disorder, Methods of Suicide Risk Evaluation: CSSR-S and SAFE-T Brief Evaluation Summary: Warning Signs: Declining health and mood Risk Indicators: stay in detention, health concerns, trauma hx, MH hx Protective Factors: Souse and is receiving care in detention Access to Lethal Means: No Collateral Sources Used and Relevant Information Obtained: Marcos Specific Assessment Data to Support Risk Determination Rationale for Actions Taken and Not Taken: Pt lacks insight and judgment and was combative and aggressive in ED, charges pending, Pt reports severe depression at this time and was given pink slip by [id number] Communication of Current Risk Stratification to: Current Medical Providers: Dr Richter Date 06/09/2021 Time 07:42 AM Psychiatrist production assembler: Name: DR Kathleen Date: 06/09/2023 Time: 11:21am INTERVENTIONS Psychiatry Consult Completed in This Episode of Care: Yes Psych Consult Date: 06/09/23 Psych Consult Time: 1121 Location: ED Provider Name: Dr Kathleen Sources of Information: Patient, Current Provider ([facility]) Patient Assessed by Intake via: Face to Face Coordination of care with: ED RN, BRENDON CHOWDARY, Current Providers ([facility]) Interventions: Therapeutic Interventions Therapeutic Interventions: Crisis Intervention, Crisis Assessment Goals/Objectives: Discharge from hospital with referrals/linkage to supportive services/current providers DISPOSITION & PLAN: Patient Assessed by Intake via: Face to Face Patient stated goals: Goals: To not be hospitalized/be discharged from ED Coordination of Care with: ED RN, BRENDON CHOWDARY, Current Providers ([facility]) Assessment/Impressions: Discharge Plan: Secure an inpatient bed Goals/Objectives: Discharge from hospital with referrals/linkage to supportive services/current providers Total time spent (minutes) in Supportive Care for this patient: MEDICAL CLEARANCE Initial Date: 06/08/23 Initial Time: 1749 Final/Accepted Date: 06/08/23 Final/Accepted Time: 1749 Reviewed medical history with physician: Yes Reviewed abnormal labs with physician: Yes Discussed case with Dr. Kathleen who states that Fernando Guido is not a candidate for admission. Is Patient Less Than 18 Years of Age or have a Guardian/Healthcare Power of Multigraph Operator?: No Disposition Date: 06/09/23 Disposition Time: 1153 SIGNATURE: SANJANA Bauer PATIENT NAME: Fernando Guido DATE: June 08, 2023 TIME: 7:28 PM documented in this encounter [facility] 06-04-2023 Hospital Discharge instructions Patient Education 06/03/2023 22:26:04 Leg Swelling in Both Legs Leg Swelling in Both Legs Swelling of the feet, ankles, and legs is called edema. It is caused by excess fluid that has collected in the tissues. Extra fluid in the body settles in the lowest part because of gravity. This is why the legs and feet are most affected. Some of the causes for edema include: Disease of the heart like congestive heart failure Standing or sitting for long periods of time Infection of the feet or legs Blood pooling in the veins of your legs (venous insufficiency) Dilated veins in your lower leg (varicose veins) Garters or other clothing that is tight on your legs. This will cause blood to pool in your legs because the clothing limits blood flow. Some medicines such as hormones like control pills, some blood pressure medicines like calcium channel blockers (amlodipine) and steroids, some antidepressants like MAO inhibitors and tricyclics Menstrual periods that cause you to retain fluids Many types of renal disease Liver failure or cirrhosis , some swelling is normal, but a sudden increase in leg swelling or weight gain can be a sign of a dangerous complication of Poor nutrition Thyroid disease Medical treatment will depend on what is causing the swelling in your legs. Your healthcare provider may prescribe water pills (diuretics) to get rid of the extra fluid. Home care Follow these guidelines when caring for yourself at home: Don't wear clothing like garters that is tight on your legs. Keep your legs up while lying or sitting. If infection, injury, or recent surgery is causing the swelling, stay off your legs as much as possible until symptoms get better. If your healthcare provider says that your leg swelling is caused by venous insufficiency or varicose veins, don't sit or secondary school principal one place for long periods of time. Take breaks and walk about every few hours. Brisk walking is a good exercise. It helps circulate the blood that has collected in your leg. Talk with your provider about using support stockings to stop daytime leg swelling. If your provider says that heart disease is causing your leg swelling, follow a low-salt diet to stop extra fluid from staying in your body. You may also need medicine. Follow-up care Follow up with your healthcare provider, or as advised. When to seek medical advice Call your healthcare provider right away if any of these occur: New shortness of breath or chest pain Shortness of breath or chest pain that gets worse Swelling in both legs or ankles that gets worse Swelling of the abdomen Redness, warmth, or swelling in one leg Fever of 100.4 F (38 C) or higher, or as directed by your healthcare provider Yellow color to your skin or eyes Rapid, unexplained weight gain Having to sleep upright or use an increased number of pillows [id number] [facility]. [address] [place] [address]. All rights reserved. This information is not intended as a substitute for professional medical care. Always follow your healthcare professional's instructions. Follow Up Care 06/03/2023 20:49:33 With:LEXA RODRIGUEZ MD Address: [address] [place] [address] [place] [phone] When:2-4 days Comments:Return to ED if symptoms worsen [facility] 06-03-2023 Emergency department Discharge summary Discharge Instructions Thank you for allowing [facility] to assist you with your healthcare needs. The following is important discharge information regarding your hospital visit. Diagnosis from Today's Visit Edema of lower leg Lower leg pain-swelling What to Do Next Instructions from Your Care Team Discharge ED Outpatient Vascular Lab - Ordered -- Test Requested: Bilateral LE Doppler US for DVT, Lower extremity, Bilateral, Test Reason: Swelling, Mon-Fri 6am-6:30pm: Call [phone] to schedule a same day appointment for testing or report to the Vascular Lab at 6:00 AM. Please be aware that the... Post Acute Orders No qualifying data available. You Need to Schedule the Following Appointments Follow Up with LEXA RODRIGUEZ MD When Within 2-4 days Why: Return to ED if symptoms worsen Where: [address] [place] [facility], [place] [address]- Allergies Brethine Keflex Latex Procardia (hypotension) amoxicillin codeine (Amoxicillin 08-MAR-2005 05:15:52 penicillin progesterone sulfa drug Medications Please ask your primary doctor or pharmacist before taking any other medication not listed, including over the counter drugs, herbal medications, vitamins and or supplements as they may interact with your home medications. What How Much When Instructions Last Dose Unchanged metoprolol (metoprolol tartrate 25 mg oral tablet) 0.5 tab(s) by mouth Two (2) times a day as needed for palpitations Please take this list to your next doctor s visit. Bring all medications you take, including over the counter medications, herbals and other supplements with you to your doctor s visit. Patients and families are reminded to discard old lists and to update any records with all medication providers or retail pharmacies. Education Materials Leg Swelling in Both Legs Swelling of the feet, ankles, and legs is called edema. It is caused by excess fluid that has collected in the tissues. Extra fluid in the body settles in the lowest part because of gravity. This is why the legs and feet are most affected. Some of the causes for edema include: Disease of the heart like congestive heart failure Standing or sitting for long periods of time Infection of the feet or legs Blood pooling in the veins of your legs (venous insufficiency) Dilated veins in your lower leg (varicose veins) Garters or other clothing that is tight on your legs. This will cause blood to pool in your legs because the clothing limits blood flow. Some medicines such as hormones like control pills, some blood pressure medicines like calcium channel blockers (amlodipine) and steroids, some antidepressants like MAO inhibitors and tricyclics Menstrual periods that cause you to retain fluids Many types of renal disease Liver failure or cirrhosis , some swelling is normal, but a sudden increase in leg swelling or weight gain can be a sign of a dangerous complication of Poor nutrition Thyroid disease Medical treatment will depend on what is causing the swelling in your legs. Your healthcare provider may prescribe water pills (diuretics) to get rid of the extra fluid. Home care Follow these guidelines when caring for yourself at home: Don't wear clothing like garters that is tight on your legs. Keep your legs up while lying or sitting. If infection, injury, or recent surgery is causing the swelling, stay off your legs as much as possible until symptoms get better. If your healthcare provider says that your leg swelling is caused by venous insufficiency or varicose veins, don't sit or secondary school principal one place for long periods of time. Take breaks and walk about every few hours. Brisk walking is a good exercise. It helps circulate the blood that has collected in your leg. Talk with your provider about using support stockings to stop daytime leg swelling. If your provider says that heart disease is causing your leg swelling, follow a low-salt diet to stop extra fluid from staying in your body. You may also need medicine. Follow-up care Follow up with your healthcare provider, or as advised. When to seek medical advice Call your healthcare provider right away if any of these occur: New shortness of breath or chest pain Shortness of breath or chest pain that gets worse Swelling in both legs or ankles that gets worse Swelling of the abdomen Redness, warmth, or swelling in one leg Fever of 100.4 F (38 C) or higher, or as directed by your healthcare provider Yellow color to your skin or eyes Rapid, unexplained weight gain Having to sleep upright or use an increased number of pillows [phone] [facility]. [address] [place] [address]. All rights reserved. This information is not intended as a substitute for professional medical care. Always follow your healthcare professional's instructions. Additional Information VACCINATE! IT SAVES LIVES! Members of the community who have not yet received the COVID-19 vaccine and would like to receive it can visit one of [facility] vaccine clinics. There are many vaccine clinic locations within the [facility]. For locations and available times, please visit [email or web address].[place].g [email or web address] It is important to note that some COVID mobile vaccine clinics are held outdoors and may be canceled in rainy or stormy conditions. To learn more about pediatric vaccinations (ages 5-11), we invite you to visit the [facility] webpage. [email or web address] [email or web address]-[email or web address] [email or web address] To learn more about the COVID-19 vaccine, we invite you to visit the CDC website for a list of frequently asked questions. https://www.cdc.gov/coronavirus/2 019-ncov/vaccines/faq.html [facility] Patient Portal Access Instructions: Stay connected with your healthcare team and access your personal medical information anytime with the [facility] Patient Portal. If you would like a full copy of your medical records please contact the [facility] Medical Records Department Monday through Monday between 8a.m. and 4:30p.m. Please follow the directions below to access the portal: 1.Access the email account you provided upon registration to the [facility].2.Look for an invitation email from [facility].3.Open the email and access the invitation link: Accept Invitation to [facility]4.Fill in the required webb to create your account. Sign into www.[employer] with your username and password that you created in the above steps to stay up to date. You can then view a summary of results, a summary of your visits, and the ability to download your summaries to your computer or send the information securely to a physician. Remember that your healthcare information is confidential, so carefully consider who you will allow to register on the [facility] Patient Portal for access to your information. You can also access the [facility] Patient Portal on the [employer]. Simply click on Health Records under Health Data and then click on the [employer] logo. HOW TO SAFELY DISPOSE OF PRESCRIPTION MEDICATIONS Please use one of the following methods to safely dispose of your unused medications. 1.Use a drug disposal kit: the drug disposal pouch allows you to safely discard your old and unused drugs. Ask your nurse to give you one when you are discharged.2.Visit a local take-back location: Many local pharmacies and police departments have programs that collect old and unwanted prescription drugs. Call your local pharmacy or go to http://bit.SoundHound/9H4Ge6v to find one close to you.3.Make use of household items: Use cat litter or old coffee grounds to dispose medications if other options are not available. Mix your drugs with these household products, seal them in an airtight container and throw it into the garbage. Call [facility]: [phone] to be sure your drugs can be disposed of in this way. Some medicines may require a different approach.4.Never flush your medications down the toilet. IF YOU HAVE BEEN PRESCRIBED AN OPIOIDS FOR PAIN If you have been prescribed an opioid (such as hydrocodone, oxycodone or morphine), it is critical to understand the possible side effects and risks of opioid pain medications. Even when taken as directed, opioids can have several side effects including: Tolerance, meaning you might need to take more of a medication for the same pain relief. Nausea, vomiting and/or constipation. Sleepiness, dizziness, dry mouth, confusion, depression or itching. Physical dependence, meaning you have withdrawal symptoms when a medication is stopped ? this can develop within a few days. KNOW YOUR RESPONSIBILITIES It is important to know exactly how much and how often to take the opioid pain medications you are prescribed. Never take opioids in higher amounts or more often than prescribed. Do not combine opioids with alcohol or other drugs that cause drowsiness, such as benzodiazepines, also known as benzos, including diazepam and alprazolam, muscle relaxants or sleep aids. Never sell or share prescription opioids. This is illegal. Store opioids in a secure place and out of reach of others (including children, family, friends and visitors). The last page(s) of this document has been signed and retained as a CHART COPY Signatures Patient Education Materials Leg Swelling in Both Legs Medication Leaflets My discharge plan and instructions have been reviewed and explained to me and I,FERNANDO GUIDO understand my current condition and have read and understand these discharge instructions. I have received a written copy of the plan/instructions. If I have questions, I am aware that I should contact my doctor. 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 06-03-2023 Note SINUS TACHYCARDIA Electronic Signature: MD SANYA PERRIN MD 06/03/2023 21:41:[address] [facility] 06-03-2023 Note ORIGINAL EXAMINATION: ONE XRAY VIEW OF THE CHEST 06/03/2023 9:20 pm COMPARISON: 09/19/2020. HISTORY: ORDERING SYSTEM PROVIDED HISTORY: Reason for Exam: SOB/cough/fever FINDINGS: Normal cardiomediastinal silhouette. No focal consolidation, large pleural effusion or pneumothorax. No acute osseous findings. IMPRESSION: No focal consolidation. I have personally reviewed the images of this examination and agree with the resident's findings and interpretation. Interpreted by: Mikael Mesa Preliminary Report By: Luiz Kinney Electronically signed By Mikael Mesa Dictated Date: 06/03/2023 9:26:11 PM Prelim Date: 06/03/2023 9:27:41 PM Sign Date: 06/03/2023 9:29:58 PM Ordering Provider: SANYA PERRIN [facility] 05-27-2023 Hospital Discharge instructions Patient Education 05/27/2023 14:46:01 Neck Pain Neck Pain There are several possible causes of neck pain when there is no injury: You can get a minor ligament sprain or muscle strain from a sudden minor neck movement. Sleeping with your neck in an awkward position can also cause this. Some people respond to emotional stress by tensing the muscles of their neck, shoulders, and upper back. Chronic spasm in these muscles can cause neck pain and sometimes headaches. Gradual wear and tear of the joints in the spine can cause degenerative arthritis. This can be a source of occasional or chronic neck pain. The spinal disks may bulge and put pressure on a nearby spinal nerve. This can happen as a natural result of aging or repeated small injuries to the neck. The spinal disks are the cushions between each spinal bone. This causes tingling, pain, or numbness that spreads from the neck to the shoulder, arm, or hand on one side. Acute neck pain usually gets better in 1 to 2 weeks. Neck pain related to disk disease, arthritis in the spinal joints, or spinal stenosis can become chronic and last for months or years. Spinal stenosis is narrowing of the spinal canal. X-rays are usually not ordered for the initial evaluation of neck pain. However, X-rays may be done if you had a forceful physical injury, such as a car accident or fall. If pain continues and doesn t respond to medical treatment, X-rays and other tests may be done at a later time. Home care Rest and relax the muscles. Use a comfortable pillow that supports the head. It should also help keep the spine in a neutral position. The position of the head should not be tilted forward or backward. A rolled up towel may help for a custom fit. Some people find relief with heat. Heat can be applied with either a warm shower or bath or a moist towel heated in the microwave and massage. Others prefer cold packs. You can make an ice pack by filling a plastic bag that seals at the top with ice cubes or crushed ice and then wrapping it with a thin towel. Try both and use the method that feels best for 15 to 20 minutes, several times a day. Whether using ice or heat, be careful that you do not injure your skin. Never put ice directly on the skin. Always wrap the ice in a towel or other type of cloth.This is very important, especially in people with poor skin sensations. Try to reduce your stress level. Emotional stress can lead to neck muscle tension and get in the way of or delay the healing process. You may use taqx-epm-avrrnpf pain medicine to control pain, unless another medicine was prescribed. If you have chronic liver or kidney disease or ever had a stomach ulcer or GI bleeding, talk with your healthcare provider before using these medicines. Follow-up care Follow up with your healthcare provider if your symptoms do not show signs of improvement after one week. Physical therapy or further tests may be needed. If X-rays, CT scans, or MRI scans were taken, you will be told of any new findings that may affect your care. Call 911 Call 911 if you have: Sudden weakness or numbness in one or both arms Neck swelling, difficulty or painful swallowing Difficulty breathing Chest pain When to seek medical advice Call your healthcare provider right away if any of these occur: Pain becomes worse or spreads into one or both arm Increasing headache Fever of 100.4 F (38 C) or higher, or as directed by your healthcare provider [id number] The [facility]. [address] [place] [address], [place] [address]. All rights reserved. This information is not intended as a substitute for professional medical care. Always follow your healthcare professional's instructions. Follow Up Care 05/27/2023 11:18:50 With:LEXA RORDIGUEZ MD Address: [address] [facility], [place] [address]- When:2-[address] [facility] 05-27-2023 Emergency department Discharge summary Discharge Instructions Thank you for allowing [facility] to assist you with your healthcare needs. The following is important discharge information regarding your hospital visit. Diagnosis from Today's Visit Muscle spasm Muscle spasm Neck ache/stiffness/spasm Neck pain What to Do Next Instructions from Your Care Team No qualifying data available. Post Acute Orders No qualifying data available. You Need to Schedule the Following Appointments Follow Up with LEXA RODRIGUEZ MD When Within 2-4 days Where: [address] [place] [address]- Allergies Brethine Keflex Latex Procardia (hypotension) amoxicillin codeine (Amoxicillin 08-MAR-2005 05:15:52 penicillin progesterone sulfa drug Medications Please ask your primary doctor or pharmacist before taking any other medication not listed, including over the counter drugs, herbal medications, vitamins and or supplements as they may interact with your home medications. What How Much When Why Instructions Last Dose New acetaminophen-oxyCODONE (Percocet 5 mg-325 mg oral tablet) 1 tab(s) by mouth Every 6 hours as needed for Pain Neck pain Duration: 3 Days Printed Prescription New diazePAM (Valium 2 mg oral tablet) 1 tab(s) by mouth Every 8 hours Muscle spasm Duration: 3 Days Printed Prescription New methylPREDNISolone (Medrol Dosepak 4 mg oral tablet) 1 Packet(s) by mouth Once a day Duration: 6 Days as directed on package labeling Printed Prescription Unchanged metoprolol (metoprolol tartrate 25 mg oral tablet) 0.5 tab(s) by mouth Two (2) times a day as needed for palpitations Please take this list to your next doctor s visit. Bring all medications you take, including over the counter medications, herbals and other supplements with you to your doctor s visit. Patients and families are reminded to discard old lists and to update any records with all medication providers or retail pharmacies. Education Materials Neck Pain There are several possible causes of neck pain when there is no injury: You can get a minor ligament sprain or muscle strain from a sudden minor neck movement. Sleeping with your neck in an awkward position can also cause this. Some people respond to emotional stress by tensing the muscles of their neck, shoulders, and upper back. Chronic spasm in these muscles can cause neck pain and sometimes headaches. Gradual wear and tear of the joints in the spine can cause degenerative arthritis. This can be a source of occasional or chronic neck pain. The spinal disks may bulge and put pressure on a nearby spinal nerve. This can happen as a natural result of aging or repeated small injuries to the neck. The spinal disks are the cushions between each spinal bone. This causes tingling, pain, or numbness that spreads from the neck to the shoulder, arm, or hand on one side. Acute neck pain usually gets better in 1 to 2 weeks. Neck pain related to disk disease, arthritis in the spinal joints, or spinal stenosis can become chronic and last for months or years. Spinal stenosis is narrowing of the spinal canal. X-rays are usually not ordered for the initial evaluation of neck pain. However, X-rays may be done if you had a forceful physical injury, such as a car accident or fall. If pain continues and doesn t respond to medical treatment, X-rays and other tests may be done at a later time. Home care Rest and relax the muscles. Use a comfortable pillow that supports the head. It should also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 relatively brief considering the referral question; the patient was feeling tired. I had read the neurology report and realized there were psychological concerns that have to be addressed. If the patient is still here tomorrow I will continue to assess. 04-28-2023 Note HNO ID: [id number] Author: Dat Vallejo MD Service: Hospital Medicine Author Type: Physician Type: Progress Notes Filed: 04/28/2023 6:48 PM Note Text: INPATIENT PROGRESS NOTE SERVICE DATE: 04/28/2023 SERVICE TIME: 6:43 PM PRIMARY SERVICE: Hospital Medicine Subjective : 27-year-old with past medical history of PTSD, RUPERTO, MDD, bipolar, schizoaffective disorder. He was seen by me at bedside this morning she is being followed for right-sided weakness work-up. Complete stroke work-up CT head CTA head and neck and MRI brain were all unremarkable on admission. Patient likely has conversion disorder versus somatoform. I placed an psych consult to evaluate patient. Neurology saw patient today as patient likely has a conversion disorder. Word to see patient in clinic vascularizing conversion disorder recommended psychological counseling. Current Facility-Administered Medications Medication Dose Route Frequency NaCl 0.9% iv flush bag 20 mL INTRAVENOUS PRN NaCl 0.9% iv infusion 50 mL/hr INTRAVENOUS CONTINUOUS acetaminophen 650 mg tab(s) (TYLENOL) 650 mg ORAL q 6 H PRN busPIRone (BUSPAR) tab(s) 15 mg 15 mg ORAL TID lamoTRIgine 100 mg tab(s) (LaMICtal) 100 mg ORAL DAILY hydrOXYzine HCl 50 mg tab(s) (ATARAX) 50 mg ORAL TID PRN lurasidone 20 mg tab(s) (LATUDA) 20 mg ORAL DAILY WITH BREAKFAST traZODone 50 mg tab(s) (DESYREL) 50 mg ORAL AT BEDTIME PRN prazosin 1 mg cap(s) (MINIPRESS) 1 mg ORAL AT BEDTIME PRN metoprolol tartrate (short acting) 25 mg tab(s) (LOPRESSOR) 25 mg ORAL AT BEDTIME nicotine 14 mg/24 hr 1 Patch (NICODERM) 1 Patch TRANSDERMAL DAILY And [START ON 04/29/2023] nicotine -- REMOVE patch OTHER DAILY And nicotine - verify patch OTHER q 8 H morphine 2 mg injection 2 mg INTRAVENOUS q 6 H PRN Objective PHYSICAL EXAM: BP 93/64 Pulse 68 Temp (Src) 98.3 (Oral) Resp 18 Ht 5' 6 (1.68m) Wt 151 lb (68.5kg) SpO2 97% LMP 11/04/2018 BMI 24.38 kg/(m2). O2 Therapy: Room Air Physical Exam Performed GENERAL: Alert, no distress, cooperative SKIN: Skin color, texture, turgor normal. No rashes or lesions. LUNGS: Lungs clear to auscultation, Good diaphragmatic excursion CARDIAC: Normal S1 and S2; no rubs, murmurs, or gallops ABDOMEN: Abdomen soft, non-tender, BS normal, No masses or organomegaly EXTREMITIES: Extremities normal, no deformities, edema, clubbing or skin discoloration. Good capillary refill., No ulcers NEURO: Gait normal. Reflexes normal and symmetric. Sensation grossly intact, Cranial nerves II-XII intact PULSES: 2+ radial, 2+ carotid Assessment/Plan : 27-year-old with past medical history of PTSD, RUPERTO, MDD, bipolar, schizoaffective disorder. On assessment patient likely has sided weakness likely secondary to conversion disorder as stroke work-up were all negative. #Right-sided weakness likely secondary to conversion disorder -Pending psych consult -Evaluated by neurology and likely think she has conversion disorder -Possible 24-hour discharge #Bipolar, PTSD, RUPERTO, MDD, schizoaffective disorder -We will continue BuSpar -We will continue prazosin -Continue Lamictal -We will continue Latuda -Continue trazodone -Continue Atarax #History of SVT -We will continue home metoprolol Medication and Non-Pharmacologic VTE Prophylaxis/Anticoagulants 04/27/23 6969 activity - mobilize [place] ([place]) VTE Prophylaxis: VTE prophylaxis appropriate SIGNATURE: Dat Vallejo MD PATIENT NAME: Fernando Guido DATE: April 28, 2023 TIME: 6:43 PM 04-28-2023 Note HNO ID: [id number] Author: Jacinto Herron LISW Service: Care Management Author Type: Donkey Engine Firer/Fireman Type: Care Mgt Progress Note Filed: 04/28/2023 3:19 PM Note Text: Summary: Discharge Planning CARE MANAGEMENT PROGRESS NOTE SERVICE DATE: 04/28/2023 SERVICE TIME: 3:17 PM LOS: 0 days [place] Given: Yes Level of Care Discussed: Snf Facility;Inpatient Rehab Facility;Home Care Financial Disclosure Provided: Yes Provider List: Rehab Facility;Snf Facility;Home Care Provider list within the patient's requested geographic area shared with the patient/family: Yes within: 20 miles of zip code: [address] Quality and resource use metrics shared with the patient that are relevant to the patient's goals of care and treatment preferences:: Yes [facility] are not accepting. Pt gave more choices for [facility], [facility] [place] and [place]. New referrals placed. Will need accpetanc, auth and pasrr completed. Will need urgent weekend f/u as able. SIGNATURE: PAULA Breaux PATIENT NAME: Fernando Guido DATE: April 28, 2023 TIME: 3:16 PM PAGER/CONTACT #: [phone] 04-28-2023 Note HNO ID: [id number] Author: Jacinto Herron LISW Service: Care Management Author Type: Donkey Engine Firer/Fireman Type: Care Mgt Progress Note Filed: 04/28/2023 11:59 AM Note Text: Summary: Discharge Planning CARE MANAGEMENT PROGRESS NOTE SERVICE DATE: 04/28/2023 SERVICE TIME: 11:59 AM LOS: 0 days [place] of Choice Given: Yes Level of Care Discussed: Snf Facility;Inpatient Rehab Facility;Home Care Financial Disclosure Provided: Yes Provider List: Rehab Facility;Snf Facility;Home Care Provider list within the patient's requested geographic area shared with the patient/family: Yes within: 20 miles of zip code: [address] Quality and resource use metrics shared with the patient that are relevant to the patient's goals of care and treatment preferences:: Yes Patient gave FOC for [facility]. Referrals placed. Will follow for acceptance and to start pre-cert as needed. SIGNATURE: PAULA Breaux PATIENT NAME: Fernando Guido DATE: April 28, 2023 TIME: 11:58 AM PAGER/CONTACT #: [phone] 04-28-2023 Note HNO ID: [id number] Author: Jacinto Herron LISW Service: Care Management Author Type: Donkey Engine Firer/Fireman Type: Care Mgt Initial Assessment Filed: 04/28/2023 11:58 AM Note Text: Summary: Discharge Planning CARE MANAGEMENT: ASSESSMENT AND DISCHARGE PLAN SERVICE DATE: April 28, 2023 SERVICE TIME: 11:48 AM PCP: Gaby Lerner MD Primary Contact: Extended Emergency Contact Information Primary Emergency Contact: Marcos Guido Jr. [address]: [address] [place] [address] Mobile Relation: Spouse Admission Status: Observation Insurance Provider: NIDIA FOSS [facility] Discharge Planning requested by: Per Department Practice Potential Transition Plans Snf Facility/Intermediate Care Facility Advance Directives Current Advance Directive: Health Care Power of Multigraph Operator In Chart: Yes Up To Date and Valid: No Yard Goods Salesperson Attempted to Assist with AD Completion: Yes Action: Education Provided Current Living Arrangements and Support Lives with: Spouse/significant other Type of Residence: Mobile Home Does the patient have to climb stairs at home?: Yes (5 steps into home) Support: Family members, Spouse/significant other How do you manage to accomplish the following: Needs Assistance: Ambulation;Bathe/Shower;Dress;Nessa ls/Meal Prep;Going to the bathroom;Medication Management;Transportation to appointments/community Current Services/Equipment Current Post-Acute Service(s): DME Current DME Type: Cane, Grab bars Current Post-Acute Service(s) Provider: 1 grab bar for bath. leg brace, hand/wrist brace Discharge Planning Patient Goal(s): Be able to go home, Other: See Comment Patient's Other Post-Acute Care Goal(s): placement as needed [place] of Choice Explained: [place] of Choice Given: Yes Level of Care Discussed: Snf Facility;Inpatient Rehab Facility;Home Care Are you interested in bedside delivery of your medications? No Discharge Planning Participant(s): Patient;Spouse/significant other;Family Patient/Family Comments: Marcos, spouse Caregiver Assessment: Caregiver is ready, willing and able to meet the patient's needs as recommended by the inter-professional team: Yes Name of Caregiver: Marcos, spouse Transport at Discharge: Transportation Arrangements: To Be Determined Needs Prior to Discharge: Needs Prior to Discharge: To Be Determined;Accepting Facility;Level of Care;OT/PT Evaluation;Facility or Agency Choices;Insurance Authorization Post-Acute Discharge Plan: Patient is from home with spouse, require much assistance with ADLs at home with spouse assistance, pt and spouse are able to arrange transportation as needed. Pt came in for right sided weakness, she does have hx of many psych dx. Pt is current with PCP, active with insurance. Pt has quad cane, grab bar for bath,hand/leg braces. PT/OT evaled pt and recommended SNF. Pt is agreeable for any LOC at this time. Pt was given FOC list. She already had choices prior to list given, referrals placed with follow for acceptance and to start Auth has able. Pt was questioning OBS status, messaged about if she will be able to be changed to inpatient and asked nurse to reach out to pt to explain OBS status in depth. Pt appreciated assistance. MIRROR SILVERER also provided pt with a community resource list due to other community needs post d/c from hospital/SNF. Will continue to follow for d/c planning needs. SIGNATURE: PAULA Breaux PATIENT NAME: Fernando Guido DATE: April 28, 2023 TIME: 11:48 AM CONTACT #: [phone] 10-05-2023 Instructions Rafita Chavez MD - 04/27/2023 7:31 PM EDT Impression: Conversion disorder Non stroke etiology --Discussed PT OT evaluation; patient reports that she feels unsafe at home and is unable to get any resources for therapy. I recommended that if she is unsafe at home/falls --can be reassessed in the ED for safe discharge plan, social work evaluation, inpatient rehab assessment will attempt to get records from her local hospital of imaging studies But review of reports that her had indicated MRI brain to be unremarkable without any infarcts. FU with PCP ; general neurology ( FU in 2 weeks has been scheduled from her recent local hospital visit ) Declined [facility] consult / [place] location / [place] location ( was further , and cited transport difficulty) Rafita Chavez MD Staff, [facility] [address] [facility] [address] 04/27/2023 7:31 PM Stroke Signs and Symptoms: *Stroke is a medical emergency. Know these warning signs of stroke: Sudden numbness or weakness of the face, arm or leg, especially on one side of the body Sudden confusion, trouble speaking, or understanding Sudden trouble seeing in one eye, or both eyes Sudden trouble walking, dizziness, loss of balance, or coordination Sudden severe headache with no known cause *If you, or someone with you, has one or more of these signs, don't delay! Immediately call 911, or the emergency medical services (EMS) number so an ambulance can be sent for you. Also, check the time so that you will know when the symptoms first appeared. It is very important to take immediate action, every second counts. Medical treatment may be available if action is taken early enough. General Guidelines to Help Reduce Risk of Stroke Blood Pressure Management: Blood Pressure reduction is recommended for both prevention of recurrent stroke and prevention of other vascular events in persons who have had an ischemic stroke or TIA and are beyond the first 24 hours. Several lifestyle modifications have been associated with BP reduction and are a reasonable part of a comprehensive antihypertensive therapy. These modifications include: - salt restriction (less than 2 grams per day) - weight loss - consumption of a diet rich in fruits, vegetables, and low-fat dairy products - regular aerobic physical activity - limited alcohol consumption Goal: Prehypertension (BP less than 130/80 mm Hg): - Perform annual BP screening and lifestyle modifications Hypertension: (BP greater than or equal to 130/80 mm Hg) - Combine medications with above lifestyle modifications to reach your goal blood pressure as defined above. - Monitor your blood pressure at home regularly to ensure you are reaching your goals Diabetes Mellitus: - the goal for glycemic control should be individualized based on the risk for adverse events, patient characteristics and preferences, and, for most patients with diabetes, achieving a goal of HbA1c =7% is recommended to reduce risk for microvascular complications. - treatment of diabetes should include glucose-lowering medications with proven cardiovascular benefit to reduce the risk for future major adverse cardiovascular events (eg, stroke, heart attack) Cholesterol and Lipid Management - Statin (rosuvastatin or atorvastatin) therapy with intensive lipid-lowering effects is recommended to reduce risk of stroke and cardiovascular events among patients with ischemic stroke or TIA who have LDL cholesterol > 100 mg/dL, or evidence of atherosclerosis. - A goal of LDL cholesterol < 70 mg/dL for stroke or TIA patients on lipid lowering therapy is recommended. - Ezetimibe in combination with statin therapy to lower the LDL cholesterol < 70 mg/DL is recommended, if statin therapy alone is insufficient to attain this treatment target. - For patients with ischemic stroke at very high risk, already taking maximally tolerated statin and ezetimibe and still have an LDL cholesterol > 70 mg/dL, it is reasonable to treat with a proprotein convertase subtilisin/kexin type 9 (PCSK9) inhibitor to prevent atherosclerotic cardiovascular or cerebrovascular events. - In patients with ischemic stroke or TIA, with fasting triglycerides 135 to 499 mg/dL and LDL cholesterol of 41 to 100 mg/dL, on moderate- or high-intensity statin therapy, with HbA1c <10%, and with no history of pancreatitis, atrial fibrillation, or severe heart failure, treatment with icosapent ethyl (IPE) 2 g twice a day is reasonable to reduce risk of recurrent stroke Diet: - Reduced sodium and increased potassium intake; DASH-style diet rich in fruits and vegetables (https://www.nhlbi.nih.gov/educat ion/bkal-zgjqwi-gyis) - Consider Mediterranean diet supplemented with nuts Smoking and Tobacco Use: - Strongly recommend smoking and tobacco use cessation to reduce risk of stroke. - Counseling, nicotine products, and oral smoking cessation medications are effective for helping smokers quit and can be provided if needed. Alcohol Consumption: - Patients with ischemic stroke or TIA who drink greater than or equal to 2 alcoholic drinks a day, should eliminate alcohol use or reduce their consumption of alcohol to less than equal to 1 alcohol drink per day to reduce stroke risk Exercise - In patients with stroke or TIA who are capable of physical activity, engaging in at least moderate-intensity aerobic activity for a minimum of 10 minutes 4 times a week or vigorous-intensity aerobic activity for a minimum of 20 minutes twice a week is indicated to lower the risk of recurrent stroke - In patients with deficits after stroke that impair their ability to exercise, supervision of an exercise program by a health manager respiratory care such as a physical therapist or cardiac rehabilitation professional, in addition to routine rehabilitation, can be beneficial for secondary stroke prevention - In individuals with stroke or TIA who sit for long periods of uninterrupted time during the day, it may be reasonable to recommend breaking up sedentary time with intervals as short as 3 minutes of standing or light exercise every 30 minutes for their cardiovascular health Adapted from the [employer]/Stateless Stroke Association: 2021 Guideline for the Prevention of Stroke in Patients With Stroke and Transient Ischemic Attack documented in this encounter [facility] 04-27-2023 Note HNO ID: [id number] Author: Rafita Chavez MD Service: ? Author Type: Physician Type: Progress Notes Filed: 04/27/2023 7:43 PM Note Text: Neurology Outpatient Clinic Note VIRTUAL VISIT Date: April 27, 2023 Patient Name: Fernando Guido Clinic Preceptor: Dr. Beltran HPI: This is Ms. Fernando Guido a 27 year old female who presents to the [facility] outpatient neurology department with a chief complaint of right sided weakness/numbness, right eye blindness. The patient has PMH of PNES, PTSD, MDD, RUPERTO, schzaphective disorder, bipolar 1, ADHD, SVT and is on Buspar, Prazosin, Lamictal, Lurasidone, Trazodone, hydrozysine, metoprolol She states that in December, she had an episode where she went to sleep normal and woke up with multiple symptoms including no sight in the right eye, right arm/leg weakness/numbness ( she was not able to raise against gravity although could move slightly), right sided facial droop, slurred speech. Within 30 min her took her to [facility]. CT brain, CTA HANDN, and MRI brainANDorbit came back unremarkable and she was discharged although her symptoms persisted. She still has all symptoms. The test results from OSH not available. However, patient's read out loud the reports as follow: CT brain: Normal CTA HANDN: No stenosis or occlusion of carotid. Patent intracranial arteries. MRI brain and orbits: No acute intracranial abnormality. Unremarkable orbits. OUTPATIENT MEDICATIONS Current Outpatient Medications on File Prior to Visit Medication Sig busPIRone (BUSPAR) 15 mg tablet Take 15 mg by mouth three times a day. cetirizine (ZYRTEC) 10 mg tablet hydrOXYzine HCl (ATARAX) 50 mg tablet Take 50 mg by mouth three times a day as needed. lamoTRIgine (LAMICTAL) 100 mg tablet Take 1 tablet by mouth every afternoon. lurasidone (LATUDA) 20 mg tablet take 1 tablet by mouth once daily with food --AT LEAST 350 CALORIES prazosin (MINIPRESS) 1 mg cap Take 1 mg by mouth at bedtime as needed. traZODone (DESYREL) 50 mg tablet take 1 tablet by mouth once daily at bedtime if needed prochlorperazine (COMPAZINE) 10 mg tablet Take 1 tablet by mouth every 8 hours as needed. chlorzoxazone (PARAFON FORTE DSC) 500 mg tablet Take 1 tablet by mouth four times a day as needed. METOPROLOL TARTRATE ORAL Take 25 mg by mouth once daily. VITAMINS B COMPLEX tab Take 1 tablet by mouth once daily. gabapentin (NEURONTIN) 300 mg capsule Take 1 capsule by mouth once daily. (Patient taking differently: Take 300 mg by mouth three times daily. ) tiotropium (SPIRIVA WITH HANDIHALER) 18 mcg inhalation capsule Inhale 1 capsule as instructed once daily. lithium carbonate 600 mg capsule Total of 1800 mg per day (Patient taking differently: Take 600 mg by mouth twice daily. ) albuterol HFA (PROAIR HFA) 90 mcg/actuation inhaler Inhale 2 Puffs as instructed every 4 hours as needed. acetaminophen (TYLENOL) 500 mg tablet Take 2 tablets by mouth every 8 hours as needed. No current facility-administered medications on file prior to visit. HISTORY Medical History, surgical history, social history, and family history have all remained unchanged since her last visit. ALLERGIES Reviewed and updated. PHYSICAL EXAM: Neurological Examination on video call: Mental Status: Alert, oriented to person, place and time and Follows commands. Cranial Nerves: CNIII, IV, : full extraoccular movements CN VII: Right sided facial droop -- intermittently --- resolves with distraction CN IX: Gag Reflex Not Examined CN XII: Weak protrusion. But not dysarthric ; no speech changes Unable to assess the rest of the cranial nerves. Motor Exam: The right arm decreased movements - but some noticed with distraction She was able to sit up - no truncal weakness LABS/DATA: CBC, Coags, BMP, Mg, Phos CSF AND Dilantin Liver Function, Amylase, AND Lipase No results found for: USCRP Cholesterol, Total (mg/dL) Date Value 03/22/2018 137 01/02/2017 136 LDL Cholesterol (mg/dL) Date Value 03/22/2018 82 01/02/2017 74 HDL Cholesterol (mg/dL) Date Value 03/22/2018 39 01/02/2017 47 Triglyceride (mg/dL) Date Value 03/22/2018 82 01/02/2017 76 Hemoglobin A1C (%) Date Value 03/22/2018 5.0 IMAGING: The test results from OSH in December are not available. However, patient's read out loud the reports as follow: CT brain: Normal CTA HANDN: No stenosis or occlusion of carotid. Patent intracranial arteries. MRI brain and orbits: No acute intracranial abnormality. Unremarkable orbits. ASSESSMENT/PLAN: The persistent neurologic symptoms localized to multiple different location in the setting of unremarkable MRI brain is suggestive of nonstructural etiologies. The patient was offered multiple options for in-person evaluation, physical therapy/occupational therapy assessments and treatments. However, s (more content not included)... [facility] 04-27-2023 History of Present illness Narrative Neurology Outpatient Clinic Note VIRTUAL VISIT Date: April 27, 2023 Patient Name: Fernando Guido Clinic Preceptor: Dr. Beltran HPI: This is Ms. Fernando Guido a 27 year old female who presents to the [facility] outpatient neurology department with a chief complaint of right sided weakness/numbness, right eye blindness. The patient has PMH of PNES, PTSD, MDD, RUPERTO, schzaphective disorder, bipolar 1, ADHD, SVT and is on Buspar, Prazosin, Lamictal, Lurasidone, Trazodone, hydrozysine, metoprolol She states that in December, she had an episode where she went to sleep normal and woke up with multiple symptoms including no sight in the right eye, right arm/leg weakness/numbness ( she was not able to raise against gravity although could move slightly), right sided facial droop, slurred speech. Within 30 min her took her to [facility]. CT brain, CTA H&N, and MRI brain&orbit came back unremarkable and she was discharged although her symptoms persisted. She still has all symptoms. The test results from OSH not available. However, patient's read out loud the reports as follow: CT brain: Normal CTA H&N: No stenosis or occlusion of carotid. Patent intracranial arteries. MRI brain and orbits: No acute intracranial abnormality. Unremarkable orbits. OUTPATIENT MEDICATIONS Current Outpatient Medications on File Prior to Visit Medication Sig busPIRone (BUSPAR) 15 mg tablet Take 15 mg by mouth three times a day. cetirizine (ZYRTEC) 10 mg tablet hydrOXYzine HCl (ATARAX) 50 mg tablet Take 50 mg by mouth three times a day as needed. lamoTRIgine (LAMICTAL) 100 mg tablet Take 1 tablet by mouth every afternoon. lurasidone (LATUDA) 20 mg tablet take 1 tablet by mouth once daily with food --AT LEAST 350 CALORIES prazosin (MINIPRESS) 1 mg cap Take 1 mg by mouth at bedtime as needed. traZODone (DESYREL) 50 mg tablet take 1 tablet by mouth once daily at bedtime if needed prochlorperazine (COMPAZINE) 10 mg tablet Take 1 tablet by mouth every 8 hours as needed. chlorzoxazone (PARAFON FORTE DSC) 500 mg tablet Take 1 tablet by mouth four times a day as needed. METOPROLOL TARTRATE ORAL Take 25 mg by mouth once daily. VITAMINS B COMPLEX tab Take 1 tablet by mouth once daily. gabapentin (NEURONTIN) 300 mg capsule Take 1 capsule by mouth once daily. (Patient taking differently: Take 300 mg by mouth three times daily. ) tiotropium (SPIRIVA WITH HANDIHALER) 18 mcg inhalation capsule Inhale 1 capsule as instructed once daily. lithium carbonate 600 mg capsule Total of 1800 mg per day (Patient taking differently: Take 600 mg by mouth twice daily. ) albuterol HFA (PROAIR HFA) 90 mcg/actuation inhaler Inhale 2 Puffs as instructed every 4 hours as needed. acetaminophen (TYLENOL) 500 mg tablet Take 2 tablets by mouth every 8 hours as needed. No current facility-administered medications on file prior to visit. HISTORY Medical History, surgical history, social history, and family history have all remained unchanged since her last visit. ALLERGIES Reviewed and updated. PHYSICAL EXAM: Neurological Examination on video call: Mental Status: Alert, oriented to person, place and time and Follows commands. Cranial Nerves: CNIII, IV, : full extraoccular movements CN VII: Right sided facial droop -- intermittently --- resolves with distraction CN IX: Gag Reflex Not Examined CN XII: Weak protrusion. But not dysarthric ; no speech changes Unable to assess the rest of the cranial nerves. Motor Exam: The right arm decreased movements - but some noticed with distraction She was able to sit up - no truncal weakness LABS/DATA: CBC, Coags, BMP, Mg, Phos CSF & Dilantin Liver Function, Amylase, & Lipase No results found for: USCRP Cholesterol, Total (mg/dL) Date Value 03/22/2018 137 01/02/2017 136 LDL Cholesterol (mg/dL) Date Value 03/22/2018 82 01/02/2017 74 HDL Cholesterol (mg/dL) Date Value 03/22/2018 39 01/02/2017 47 Triglyceride (mg/dL) Date Value 03/22/2018 82 01/02/2017 76 Hemoglobin A1C (%) Date Value 03/22/2018 5.0 IMAGING: The test results from OSH in December are not available. However, patient's read out loud the reports as follow: CT brain: Normal CTA H&N: No stenosis or occlusion of carotid. Patent intracranial arteries. MRI brain and orbits: No acute intracranial abnormality. Unremarkable orbits. ASSESSMENT/PLAN: The persistent neurologic symptoms localized to multiple different location in the setting of unremarkable MRI brain is suggestive of nonstructural etiologies. The patient was offered multiple options for in-person evaluation, physical therapy/occupational therapy assessments and treatments. However, she refused due to lack of resources, mainly transportation. Because of reported multiple nonmechanical falls, there is a concern for safety and advised to go to the ER for inpatient PT/OT with safe discharge by CM arrangements. Rhea Villaseñor MD Resident, Adult Neurology (PGY-3) 04/27/2023 2:49 PM [facility] STAFF PHYSICIAN NOTE OF PERSONAL INVOLVEMENT IN CARE I have reviewed the consult note obtained and documented by the resident and I personally participated in the franklin components. I have discussed the case and management of the patient's care. The following comments revise or confirm relevant franklin components of the note. Patient reports that she has been unable to see out of her right eye (reports monocular vision change) --however with eyes closed was able to focus on the monitor, the current has been, follow visual cues Also distractible facial weakness No dysarthria The distraction was noted to have some right-sided upper extremity weakness Impression: Conversion disorder --Discussed PT OT evaluation; patient reports that she feels unsafe at home and is unable to get any resources for therapy. I recommended that if she is unsafe at home/falls --can be reassessed in the ED for safe discharge plan, social work evaluation, inpatient rehab assessment will attempt to get records from her local hospital of imaging studies But review of reports that her had indicated MRI brain to be unremarkable without any infarcts. FU with PCP ; general neurology ( reports she has a FU scheduled with neurology) Resources offered or consults at [facility] refused stating she would be unable to come for in person appointments. This visit was conducted as a virtual visit. Rafita Chavez MD Vascular Neurology Staff April 27, 2023 7:28 PM This note was partially generated using Vontu voice recognition system, and there may be some incorrect words, spellings, and punctuation that were not noted in checking the note before saving. This note was partially created using voice recognition software and is inherently subject to errors including those of syntax and sound-alike substitutions which may escape proofreading. In such instances, original meaning may be extrapolated by contextual derivation. documented in this encounter [facility] 04-24-2023 Note HNO ID: [id number] Author: Eva Shin APRN.MANAGER BANQUET Service: ? Author Type: Nurse Practitioner Type: Progress Notes Filed: 04/24/2023 7:59 AM Note Text: [facility] - Follow up Virtual Visit Last OV:02/17/22 Accompanied by: Self This visit was conducted as a virtual visit, with patient's permission, via ZOOM. It required patient-provider interaction for the medical decision making as documented below. Patient stated name and Patient location [place], [place] I have communicated my name and active licensure. The patient's identity and physical location were verified at the time of this visit. Either the patient or their legal outside medical sales representative has been informed of the risks and benefits of -- and alternatives to -- treatment through a remote evaluation and consents to proceed with the evaluation remotely. Primary Problem List: ACTIVE PROBLEM LIST Bipolar 1 Disorder (Hcc) History of Depression History of Drug Abuse (Hcc) Poor Historian Posttraumatic Stress Disorder Polysubstance Abuse (Hcc) Migraine Headache Asthma Anxiety Seizure (Hcc) Gerd (Gastroesophageal Reflux Disease) Hormone Replacement Therapy (Hrt) perimenopause s/p TH Fibromyalgia Chronic Pain Disorder Rotator Cuff Tear, Right Sacrococcygeal Disorders, Not Elsewhere Classified Nipple Discharge Chief Complaint: Headache Interval Headache Hx: Lost insurance end January 2022, has Medicaid currently since 04/10/23 final decision 05/10/23 Had CVA in December was hospitalized [facility] vision R eye Botox helped at least 25% Plan from last visit:Botox Headache 1 Diagnosis: Chronic Migraine Headache (CM) Location: retro-orbital and occipital Quality/Description: throbbing, pressure and piercing/stabbing Associated Symptoms: Photophobia: yes Phonophobia: yes Nausea: yes Vomiting: yes Other symptoms: neck pain Number of migraine headache days/month: 25 Migraine headache severity: 9/10 Duration of headaches with treatment: 12 hours Triggers: stress and heat Onset of headache to peak: varies Positional changes: no Most common time of day for headache to begin: anytime Aura: 'pixelated vision' Headache status since the last visit: worse Lifestyle: Sleep: 6 hours Exercise: walking Issues and questions to be addressed: Medications Current Outpatient Medications Medication Sig cetirizine (ZYRTEC) 10 mg tablet hydrOXYzine HCl (ATARAX) 50 mg tablet Take 50 mg by mouth three times a day as needed. lamoTRIgine (LAMICTAL) 100 mg tablet Take 1 tablet by mouth every afternoon. lurasidone (LATUDA) 20 mg tablet take 1 tablet by mouth once daily with food --AT LEAST 350 CALORIES prazosin (MINIPRESS) 1 mg cap Take 1 mg by mouth at bedtime as needed. traZODone (DESYREL) 50 mg tablet take 1 tablet by mouth once daily at bedtime if needed METOPROLOL TARTRATE ORAL Take 25 mg by mouth once daily. busPIRone (BUSPAR) 15 mg tablet Take 15 mg by mouth three times a day. prochlorperazine (COMPAZINE) 10 mg tablet Take 1 tablet by mouth every 8 hours as needed. chlorzoxazone (PARAFON FORTE DSC) 500 mg tablet Take 1 tablet by mouth four times a day as needed. VITAMINS B COMPLEX tab Take 1 tablet by mouth once daily. gabapentin (NEURONTIN) 300 mg capsule Take 1 capsule by mouth once daily. (Patient taking differently: Take 300 mg by mouth three times daily. ) tiotropium (SPIRIVA WITH HANDIHALER) 18 mcg inhalation capsule Inhale 1 capsule as instructed once daily. lithium carbonate 600 mg capsule Total of 1800 mg per day (Patient taking differently: Take 600 mg by mouth twice daily. ) albuterol HFA (PROAIR HFA) 90 mcg/actuation inhaler Inhale 2 Puffs as instructed every 4 hours as needed. acetaminophen (TYLENOL) 500 mg tablet Take 2 tablets by mouth every 8 hours as needed. No current facility-administered medications for this visit. ALLERGIES Allergen Reactions Clindamycin Hives, Shortness of Breath Dicyclomine Itching Flagyl [Metronidazo* Itching Keflex [Cephalexin] Anaphylaxis Latex Rash Mobic [Meloxicam] Other: See Comments Chest pain Penicillin Hives Per pt anything in the penicillin family she is allergic to Prednisone Rash, Swelling Rash and tongue swelling 20 mins after taking prednisone cream Procardia [Nifedipi* Hives Hives and seizures per pt Progesterone Aqueous Rash Progesterone cream only Shellfish Derived Swelling Throat swells Sulfa (Sulfonamide * Hives Terbutaline Hives Per pt has hives and seizures Tessalon [Benzonata* Rash [id number] Anti* Contraindication-Medical Surgical Had CVA 12/2022 Zofran [Ondansetron* Swelling HEADACHE SCORES: Headache Questions 02/10/2022 04/11/2023 04/22/2023 ER visits since last office visit: 15 5 - Hospital stays since last office visit 0 0 - Limited ADLs in the last month: 20 25 - Days missed from work or school in the last month: 20 10 - Days headache pain free in (more content not included)... [facility] 02-17-2022 History of Present illness Narrative Follow-Up Onabotulinum Toxin A (BotoxTM) for Migraine Indication: Chronic Intractable Migraine Treatment #: 2 Referral Expiration: 11/01/2022 Prior to the initiation of the FIRST treatment with Onabotulinum Toxin A, the patient reported the following average headache frequency over the past 3 MONTHS: Number of moderate-severe migraine days/month: 28 Number of mild migraine days/month: 0 Number of headache free days/month: 2 (48 headache-free hours) Migraine severity: 10/10 After treatment with Onabotulinum Toxin A: Number of moderate-severe migraine days/month: 10 Number of mild migraine days/month: 0 Number of headache free days/month: 20 (480 headache-free hours) Migraine severity: 10/10 Patient reduction in overall migraine days: Yes Patient reduction in moderate-severe migraine days: Yes Patient reduction of headache hours by 100 hours or more: Yes (reduction of 432 hours) Side effects: none Wearing off: Yes - 9 weeks after treatment HEADACHE SCORES: Headache Questions 10/19/2021 11/11/2021 02/10/2022 ER visits since last office visit: - 0 15 Hospital stays since last office visit - 0 0 Limited ADLs in the last month: - 15 20 Days missed from work or school in the last month: 25 20 20 Days headache pain free in the last month: - 10 10 Days per month with ALL of the following symptoms - decreased productivity, light sensitivity and nausea: 25 - 15 Initial improvement of headache after botox injection at last visit: Much improved - Much improved PRN medication usage in the last month: - 20 20 Patient impression of improvement since last visit: Very much worse Much worse Minimally improved HIT-6 10/05/2021 11/11/2021 02/10/2022 HIT-6 - - - HIT-6 78 (Severe impact) 78 (Severe impact) 78 (Severe impact) RUPERTO - 2/7 SCORES 10/05/2021 11/11/2021 02/10/2022 RUPERTO-2 Score 2 2 2 RUPERTO-7 Score - - - Migraine Specific QOL - Higher scores indicate better HRQL 04/17/2019 07/15/2019 02/10/2022 Role Function-Restrictive Transformed Score (range: 0-100) 42.85 54.28 0 Role Function-Preventive Transformed Score (range: 0-100) 35 40 0 Emotional Function Transformed Score (range: 0-100) 0 26.66 0 PHQ-9 10/05/2021 11/11/2021 02/10/2022 Score 15 12 24 BP 119/71 (BP Site: Right Arm, BP Position: Sitting, BP Cuff Size: Regular Adult) Pulse 116 Resp 14 Ht 167.6 cm (5' 6 ) Wt 67.6 kg (149 lb) LMP 11/04/2018 SpO2 98% BMI 24.05 kg/m Patient name: Fernando Guido : 1995 ALLERGIES Allergen Reactions Clindamycin Hives, Shortness of Breath Dicyclomine Itching Flagyl [Metronidazo* Itching Keflex [Cephalexin] Anaphylaxis Latex Rash Mobic [Meloxicam] Other: See Comments Chest pain Penicillin Hives Per pt anything in the penicillin family she is allergic to Prednisone Rash, Swelling Rash and tongue swelling 20 mins after taking prednisone Procardia [Nifedipi* Hives Hives and seizures per pt Progesterone Aqueous Rash Progesterone cream only Sulfa (Sulfonamide * Hives Terbutaline Hives Per pt has hives and seizures Tessalon [Benzonata* Rash Zofran [Ondansetron* Swelling UNIVERSAL PROTOCOL / SAFETY CHECKLIST Procedure: Onabotulinum toxin A for migraine Informed Consent Consent Obtained: Written Loraine Protocol A moment to CARE was completed SIGN IN Personnel directly involved with the procedure wore the appropriate PPE Special Equipment: N/A Patient/Surrogate Stated/Verified: Patient name, Date of , Relevant allergies and Intended procedure TIME OUT Intended patient and procedure match the source document(s) Consent documented and matches the intended procedure No relevant labs, photos, and/or imaging studies were applicable for review. No correct side/site applicable for marking and visibility. No medications required for procedure. No fire risk assessment and interventions applicable. No implant(s) inserted. SIGN OUT No specimen collected. No instruments, equipment or retained foreign bodies applicable. Post-procedure follow-up management communicated and Plan of Care Visit completed when applicable Written Consent Obtained: Written LOT #: [id number] Expiration Date: Month: 1 Year: 2024 Injection Sites Left (Units) Left (Sites) Right (Units) Right (Sites) TOTAL (Units) Animal Trainer Supervisor 5 1 5 1 10 Procerus Units: 5 Sites: 1 5 Frontalis 10 2 10 2 20 Temporalis 20 4 20 4 40 Occipitalis 15 3 15 3 30 Cervical PSP 10 2 10 2 20 Trapezius 15 3 15 3 30 Total Units used: 155 Total Units wasted: 45 Prior Therapies Duration of Use Dose Side effect Anti-Convulsant Divalproex sodium (Depakote) Gabapentin (Neurontin) Levetiracetam (Keppra) Topiramate (Topamax, Trokendi XL, Qudexy) Anti-Depressant and Antipsychotic Amitriptyline (Elavil) Aripiprazole (Abilify) Bupropion (Wellbutrin) Escitalopram (Lexapro) Fluoxetine (Prozac) [place] (Eskalith, Lithobid) Antiemetics Ondansetron Prochlorperazine Promethazine Reglan (Metoclopramide) Anti-Migraine Rizatriptan (Maxalt) Sumatriptan (Imitrex, Sumavel) Blood Pressure Metoprolol (Lopressor,Toprol XL) Botulinum Toxin Onabotulinum Toxin A (Botox) Muscle Relaxer Baclofen (Lioresal) Cyclobenzaprine (Flexeril) Methocarbamol (Robaxin) Sleep Aids Melatonin Trazodone (Desyrel) Other Medications Diphenhydramine (Benadryl) Prednisone Over the Counter Medications Acetaminophen (Tylenol) Ibuprofen (Advil, Motrin) Naproxen sodium (Aleve) Eva Shin APRN.CNP Answers for HPI/ROS submitted by the patient on 02/10/2022 How many days of work or school have you missed due to headaches in the last month? : 20 documented in this encounter [facility] 01-26-2022 Miscellaneous Notes LV:12/10/2021 perimenopause vs early menopause s/p TH with VMS (normal dxa on estrogen check hormones Estradiol 17B pg/mL 110 FSH See comment mIU/mL 5.3 Miss FSH levels also perfectly normal more good news Estrogen level is quite normal good news Luciana Sterling January 26, 2022 3:18 PM documented in this encounter [facility] 01-26-2022 Miscellaneous Notes The following approved medication requests have been transmitted electronically. Signed Prescriptions Disp Refills prochlorperazine (COMPAZINE) 5 mg tablet 60 tablet 0 Sig: Take 2 tablets by mouth every 8 hours as needed for nausea/vomiting. TIM: No Authorizing Provider: EMILIE WASHBURN chlorzoxazone (PARAFON FORTE DSC) 500 mg tablet 20 tablet 0 Sig: Take 1 tablet by mouth four times daily. TIM: No Authorizing Provider: EMILIE WASHBURN APRN.CNP January 26, 2022 8:54 AM Physician: Teresa Call from patient requesting refill. Please E-Scribe Last OV: 11/18/21 with Teresa Future OV: 02/17/22 with Teresa Pending Prescriptions Disp Refills PROCHLORPERAZINE MALEATE 5 MG TABLET 60 tablet 3 Sig: Take 2 tablets by mouth every 8 hours as needed for nausea/vomiting. TIM: No CHLORZOXAZONE 500 MG TABLET 20 tablet 3 Sig: Take 1 tablet by mouth four times daily. TIM: No Pharmacy Name: documented in this encounter [facility] 01-06-2022 Miscellaneous Notes [facility] Fax number is Faxing orders to Pt preferred hospital to have complete. Leyda Dias January 06, 2022 12:05 PM documented in this encounter [facility] 11-22-2021 History of Present illness Narrative Virtual visit with me via uTest for pap/FRYER OPERATOR exam with MANAGER BANQUET or FRYER OPERATOR saw Dr Parks 06/2020 distance last seen by me 05/2019 then NS 09/2019 has bloody right breast discharge NEEDS EVAL seeing laboratory aide for SVT reviewed interval history PHYSICIAN NOTE OF PERSONAL INVOLVEMENT IN CARE: I have interviewed the patient and updated the PFS history and ROS as necessary. I have re-performed the HPI, Assessment and the parts of the HPI, ROS, and assessment and plan were copied from my previous visit were thoroughly reviewed line by line with changes made to update the current medical status. Other parts that were not relevant were deleted and the new assessment and plan is as noted below. PCP Gaby Lerner MD, Fernando is a 26 year old now re-marriedwhite female starts school next year lives in [place], [place] had 5 children one here for Women's Health Evaluation [facility] for virtual follow up on HT now 2 yrs clean after relapse s/p TH ovaries has right bloody breast dc on oral P for sleep and hx of sz 03/2019 1. Uterus and cervix, hysterectomy (A) Cervix - Chronic cervicitis and hyperkeratosis. Endometrium - Proliferative endometrium. Myometrium - No significant pathologic findings. 2. Bilateral fallopian tubes, bilateral salpingectomies (B) - Hydrosalpinx. Component Latest Ref Rng & Units 09/22/2021 Transferrin 200 - 360 mg/dL 276 Component Latest Ref Rng & Units 12/20/2017 02/13/2019 06/03/2019 08/05/2019 FSH mU/mL 2.8 8.7 7.9 Estradiol 17B pg/mL 103 47 26 TSH 0.270 - 4.200 uU/mL 2.100 OB History T4 L4 SAB3 TAB1 Ectopic0 Multiple0 Live Births5 Comment: Doesn't have custody of any of her children- secondary to psycholgic diagnoses in past. All losses were followed by a international exchange coordinator and the children delivered at home and remains were cremated except for alfonzo her 32 weeker. BREAST HISTORY First degree relatives: mother PM Second degree relatives: MGM Personal history of breast biopsy: 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 Patient's last menstrual period was 11/04/2018. Age at menopause onset: 25 Menopausal symptom assessment: Vasomotor symptoms: yes better on ET still has Urinary incontinence & symptoms: no incontinence CARDIOVASCULAR Lipid & CV risk assessment: exsmoker no DVT no HTN no DM no OH no stroke BONE STATUS Discussed calcium in the diet and take separate oral 2,000 iu vitamin D3 daily to up to 5,000 international unit(s) daily Bone mineral density :08/2019 normal Family History of hip Fx: no HISTORIES HISTORIES FAMILY HISTORY Adopted: Yes Problem Relation Age of Onset Breast Cancer Mother Seizures Mother Thyroid Mother Ovarian cancer Mother other (Fibromylagia) Mother Seizures Paternal Grandmother other (Lung Cancer) Paternal Grandmother other (Coagulopathy) Paternal Grandmother Cervical Cancer Maternal Grandmother Thyroid Maternal Grandmother Seizures Maternal Grandmother Breast Cancer Maternal Grandmother Seizures Paternal Grandfather other (Pancreatic Cancer) Paternal Grandfather other (Coagulopathy) Paternal Grandfather other (Leukemia) Paternal Aunt Seizures Father Heart Father 39 [place] other (Coagulopathy) Paternal Aunt Seizures Maternal Grandfather other (autism, fragile x) Sister fathers side ADD/ADHD Brother mother's side Bipolar disorder Brother Autism Brother Autism Brother father s side Alcohol/Drug Brother mother's side Bipolar disorder Brother other (Down syndrome) Sister mother's side other (border line Autism) Son other (healthy) Son other (healthy) Son other (healthy) Daughter other (pneumonia) Daughter PAST MEDICAL HISTORY Diagnosis Date Abnormal Pap smear of cervix TH ACL tear right, s/p repair in 2016 ADHD (attention deficit hyperactivity disorder) Anemia Anxiety Asthma Bipolar disorder (HCC) Chichi Alejo CC type 1 Chlamydia 2014 Complication of anesthesia migraines after anesthesia Fibromyalgia on gabapentin for this GERD (gastroesophageal reflux disease) Migraines perimenopause s/p TH 11/2018 rt ovary remains Polysubstance abuse (HCC) depression Preeclampsia PTSD (post-traumatic stress disorder) Reactive attachment disorder Seizure (HCC) psychogenic non epileptic seizures Tobacco use PAST SURGICAL HISTORY Procedure Laterality Date ARTHRS AIDED ANT CRUCIATE LIGM RPR/AGMNTJ/RCNSTJ Right 01/27/2017 Right knee arthroscopic ACL reconstruction with hamstring autograft and medial menisectomy COLONOSCOPY FLX DX W/COLLJ SPEC WHEN PFRMD 06/12/2017 Colonoscopy [facility] - normal - Bx negative ESOPHAGOGASTRODUODENOSCOPY TRANSORAL DIAGNOSTIC 06/12/2017 EGD - duodenitis, gastritis, superfical gastric ulcers, HYSTERECTOMY 11/2018 TH and tubes, benign pathology REMOVAL OF OVARY(S) Left 05/2020 benign path- see 08/13 ms TUBAL LIGATION HX Social History Tobacco Use Smoking status: Current Every Day Smoker Packs/day: 1.50 Types: Cigarettes Start date: 07/28/2006 Smokeless tobacco: Former User Types: Chew Tobacco comment: 2 packs weekly Substance Use Topics Alcohol use: Yes Comment: [facility] Drug use: Not Currently Types: Amphetamines, Benzodiazepines, Cocaine, Crack Cocaine, Heroin, Marijuana, Narcotics, Opiates ROS PHYSICAL EXAM: had nl BMI 24 nl BP last check 120/63 looks well has glasses `Neuro: oriented in 3 spheres, right handed Psych: euthymic ASSESSMENT & PLAN: perimenopause vs early menopause s/p TH with VMS (normal dxa on estrogen check hormones Hormone replacement therapy (HRT) Comment: reviewed r/b/a hx of bipolar substance abuse now sober hx of sz on tx HEALTH MAINTENANCE: Health information given. Women's Health patient information and counselling done. Counseled regarding risk/benefits/alternatives to Hormone Therapy and need for yearly re-evaluation. Living Will & Medical Power of Multigraph Operator recommended-she has Mammogram discussed age 44 NEEDS eval Colon cancer screening by age 45 & every 5-10 years. Bone mineral density age 45 IMMUNIZATIONS: TD at age 50 or every 10 years Pneumovax (between ages 50-65) Recommend consideration for shingles vaccine in women by age 60 and older. Yearly flu vaccine in the fall recommended. LABS per PCP: Sincerely, Tristan Khan MD (Signed electronically to expedite mailing) c: Fernando Mayo documented in this encounter [facility] 11-12-2021 Note HNO ID: [id number] Author: Isreal Beckham MD Service: ? Author Type: Physician Type: Progress Notes Filed: 11/12/2021 11:46 AM Note Text: [facility] Patient [facility]: [facility] Date of : 1995 Referring Provider: SELF INITIAL EPILEPSY CLINIC NOTE 11/12/2021 11:00 AM CHIEF COMPLAINT: New Patient and Seizures HISTORY OF PRESENT ILLNESS Ms. Guido is a 26 year old female seen in [facility] for initial consultation. There is no one accompanying the patient during today's visit. Handedness: Age of onset: Seizure History and Evolution Ms. 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 reports that she has been having seizures with increased frequency where she feels dizzy and lightheaded followed by loss of consciousness. Witnesses have told her that she is flopping around like a fish during these seizures. She reports that she had a cluster of 4 seizures in May 2021 and was given IV keppra. She tells me she has confirmed epilepsy and shows a diagnosis on patient portal on her phone that reads Epilepsy (confirmed) . When asked her how this diagnosis was made she was not able to tell me if an EEG showed abnormalities. She reports a recent EEG was done and per her [facility] neurologist (Dr. Howell) EEG and MRI from 09/04/2021 were normal. She was previously seen by Dr. Pete at [facility] in 2016 for episodes of staring and convulsions. These episodes of convulsions were confirmed to be PNES during EMU evaluation at [facility] in 2015. Dr. Howell's notes indicate that he has recommended EMU evaluation at [facility] for spell classification. ED visit in Jun 2021 notes- Ms. Mayo was brought back to the trauma bay after staff in the waiting room noted seizure-like activity. She was given Ativan before I was able to assess her. When I entered the trauma bay she appeared to be seizing but the activity stopped with a sternal rub and she immediately began talking to me without any post-ictal state. She did not bite her tongue and was not incontinent . Patient at this point started getting visibly upset and started asking if I am going to do anything about these seizures. When asked to elaborate how these seizures are different from her previous PNES episodes, she reports that these current episodes are more intense and getting worse. She repeatedly tells me that Epilepsy has been confirmed but I do not see any objective evidence of that in her chart (neurologist notes or EEG findings). I told that her that I would be happy to do another evaluation before starting her on AEDs. At this point she left the clinic in the middle of the encounter stating that if I am not going to give medications this visit was a waste of time. Total # of Current Anti-seizure Medications: Side Effects to Current Anti-seizure Medications: Seizure Frequency at First Visit: Longest Seizure-free Interval: CURRENT OUTPATIENT ANTISEIZURE MEDICATIONS (as of the start of the encounter) gabapentin (NEURONTIN) 300 mg capsule (Taking) Take 1 capsule by mouth once daily. Prior Anti-seizure Therapies: Trial Adequacy: Max Daily Dose Achieved: Side Effects: Effectiveness: Comments: Comorbidities: Episode Description: Patient Entered Data: EPILEPSY SCORE 11/11/2021 10:15 AM 10/05/2021 8:50 PM 03/11/2021 10:09 PM First answer obtained - 04/17/2019 2:47 AM PHQ-9 SCORE 12 [Moderate Depression] 15 [Moderately Severe Depression] 3 [None-Minimal Depression] 11 [Moderate Depression] RUPERTO 2 SCORE 2 [Negative Anxiety Screen] 2 [Negative Anxiety Screen] 0 [Negative Anxiety Screen] 3 [Positive Anxiety Screen] RUPERTO 7 SCORE - - - 9 [Mild Anxiety Disorder] QOLIE-10 SCORE (0=worst; 100=best QoL ? higher scores represent better function) - - - - LSSS SCORE (0- no seizures 100- most severe possible seizures) - - - - C-SSRS SCREEN - - - - On average, how many hours of sleep do you get in a 24-hour period? - - - - PROMIS Sleep Disturbance T-SCORE - - - - Have you been diagnosed with Sleep Apnea? - - - - Seizure risk factors: Brain Tumor Unanswered MILL HELPER Infections Unanswered Developmental Delay Unanswered Family history of seizures Unanswered Febrile Seizure Unanswered Complications Unanswered Stroke Unanswered Traumatic Brain Injury Unanswered Previous Epilepsy Evaluations Other caregivers: Primary Care Provider: Gaby Lerner MD, MD Current Outpatient Medications Medication Sig - METOPROLOL TARTRATE ORAL Take 25 mg by mouth once daily. - ipratropium-albuterol (DUONEB) 0.5 mg-3 mg(2.5 mg base)/3 mL nebu Inhale 3 mL as instructed. - mometasone-formoterol (DULERA) 200-5 mcg/actuation inhaler Inhale 2 Puffs as instructed. (more content not included)... [facility] 11-12-2021 History of Present illness Narrative [facility] Patient Name: Fernando CAM Date of : 1995 Referring Provider: SELF INITIAL EPILEPSY CLINIC NOTE 11/12/2021 11:00 AM CHIEF COMPLAINT: New Patient and Seizures HISTORY OF PRESENT ILLNESS Ms. Guido is a 26 year old female seen in [facility] for initial consultation. There is no one accompanying the patient during today's visit. Handedness: Age of onset: Seizure History and Evolution Ms. 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 reports that she has been having seizures with increased frequency where she feels dizzy and lightheaded followed by loss of consciousness. Witnesses have told her that she is flopping around like a fish during these seizures. She reports that she had a cluster of 4 seizures in May 2021 and was given IV keppra. She tells me she has confirmed epilepsy and shows a diagnosis on patient portal on her phone that reads Epilepsy (confirmed) . When asked her how this diagnosis was made she was not able to tell me if an EEG showed abnormalities. She reports a recent EEG was done and per her [facility] neurologist (Dr. Howell) EEG and MRI from 09/04/2021 were normal. She was previously seen by Dr. Pete at [facility] in 2016 for episodes of staring and convulsions. These episodes of convulsions were confirmed to be PNES during EMU evaluation at [facility] in 2016. Dr. Howell's notes indicate that he has recommended EMU evaluation at [facility] for spell classification. ED visit in Jun 2021 notes- Ms. Mayo was brought back to the trauma bay after staff in the waiting room noted seizure-like activity. She was given Ativan before I was able to assess her. When I entered the trauma bay she appeared to be seizing but the activity stopped with a sternal rub and she immediately began talking to me without any post-ictal state. She did not bite her tongue and was not incontinent . Patient at this point started getting visibly upset and started asking if I am going to do anything about these seizures. When asked to elaborate how these seizures are different from her previous PNES episodes, she reports that these current episodes are more intense and getting worse. She repeatedly tells me that Epilepsy has been confirmed but I do not see any objective evidence of that in her chart (neurologist notes or EEG findings). I told that her that I would be happy to do another evaluation before starting her on AEDs. At this point she left the clinic in the middle of the encounter stating that if I am not going to give medications this visit was a waste of time. Total # of Current Anti-seizure Medications: Side Effects to Current Anti-seizure Medications: Seizure Frequency at First Visit: Longest Seizure-free Interval: CURRENT OUTPATIENT ANTISEIZURE MEDICATIONS (as of the start of the encounter) gabapentin (NEURONTIN) 300 mg capsule (Taking) Take 1 capsule by mouth once daily. Prior Anti-seizure Therapies: Trial Adequacy: Max Daily Dose Achieved: Side Effects: Effectiveness: Comments: Comorbidities: Episode Description: Patient Entered Data: EPILEPSY SCORE 11/11/2021 10:15 AM 10/05/2021 8:50 PM 03/11/2021 10:09 PM First answer obtained - 04/17/2019 2:47 AM PHQ-9 SCORE 12 [Moderate Depression] 15 [Moderately Severe Depression] 3 [None-Minimal Depression] 11 [Moderate Depression] RUPERTO 2 SCORE 2 [Negative Anxiety Screen] 2 [Negative Anxiety Screen] 0 [Negative Anxiety Screen] 3 [Positive Anxiety Screen] RUPERTO 7 SCORE - - - 9 [Mild Anxiety Disorder] QOLIE-10 SCORE (0=worst; 100=best QoL higher scores represent better function) - - - - LSSS SCORE (0- no seizures 100- most severe possible seizures) - - - - C-SSRS SCREEN - - - - On average, how many hours of sleep do you get in a 24-hour period? - - - - PROMIS Sleep Disturbance T-SCORE - - - - Have you been diagnosed with Sleep Apnea? 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 ipratropium-albuterol (DUONEB) 0.5 mg-3 mg(2.5 mg base)/3 mL nebu Inhale 3 mL as instructed. mometasone-formoterol (DULERA) 200-5 mcg/actuation inhaler Inhale 2 Puffs as instructed. VITAMINS B COMPLEX tab Take 1 tablet by mouth once daily. prochlorperazine (COMPAZINE) 5 mg tablet Take 2 tablets by mouth every 8 hours as needed for nausea/vomiting. chlorzoxazone (PARAFON FORTE DSC) 500 mg tablet Take 1 tablet by mouth four times daily. DANNIELLE 0.1 mg/24 hr apply ONE PATCH topically TWICE A WEEK DIRECTED escitalopram oxalate (LEXAPRO) 20 mg tablet Take 20 mg by mouth once daily. progesterone micronized (PROMETRIUM) 200 mg capsule Take 1 capsule by mouth daily with dinner. gabapentin (NEURONTIN) 300 mg capsule Take 1 capsule by mouth once daily. (Patient taking differently: Take 300 mg by mouth three times daily. ) tiotropium (SPIRIVA WITH HANDIHALER) 18 mcg inhalation capsule Inhale 1 capsule as instructed once daily. lithium carbonate 600 mg capsule Total of 1800 mg per day (Patient taking differently: Take 600 mg by mouth twice daily. ) albuterol HFA (PROAIR HFA) 90 mcg/actuation inhaler Inhale 2 Puffs as instructed every 4 hours as needed. Cholecalciferol, Vitamin D3, 2,000 unit cap Take 1 capsule by mouth once daily. one po daily acetaminophen (TYLENOL) 500 mg tablet Take 2 tablets by mouth every 8 hours as needed. No current facility-administered medications for this visit. ALLERGIES Allergen Reactions Clindamycin Hives, Shortness of Breath Dicyclomine Itching Flagyl [Metronidazo* Itching Keflex [Cephalexin] Anaphylaxis Latex Rash Mobic [Meloxicam] Other: See Comments Chest pain Penicillin Hives Per pt anything in the penicillin family she is allergic to Prednisone Rash, Swelling Rash and tongue swelling 20 mins after taking prednisone Procardia [Nifedipi* Hives Hives and seizures per pt Progesterone Aqueous Rash Progesterone cream only Sulfa (Sulfonamide * Hives Terbutaline Hives Per pt has hives and seizures Tessalon [Benzonata* Rash Zofran [Ondansetron* Swelling PAST MEDICAL HISTORY Diagnosis Date Abnormal Pap smear of cervix TH ACL tear right, s/p repair in 2016 ADHD (attention deficit hyperactivity disorder) Anemia Anxiety Asthma Bipolar disorder (HCC) Chichi Alejo CC type 1 Chlamydia 2014 Complication of anesthesia migraines after anesthesia Fibromyalgia on gabapentin for this GERD (gastroesophageal reflux disease) Migraines perimenopause s/p TH 11/2018 rt ovary remains Polysubstance abuse (HCC) History. Last use of any illicit drug was September depression Preeclampsia PTSD (post-traumatic stress disorder) Reactive attachment disorder Seizure (HCC) psychogenic non epileptic seizures Tobacco use PAST SURGICAL HISTORY Procedure Laterality Date ARTHRS AIDED ANT CRUCIATE LIGM RPR/AGMNTJ/RCNSTJ Right 01/27/2017 Right knee arthroscopic ACL reconstruction with hamstring autograft and medial menisectomy COLONOSCOPY FLX DX W/COLLJ SPEC WHEN PFRMD 06/12/2017 Colonoscopy [facility] - normal - Bx negative ESOPHAGOGASTRODUODENOSCOPY TRANSORAL DIAGNOSTIC 06/12/2017 EGD - duodenitis, gastritis, superfical gastric ulcers, HYSTERECTOMY 11/2018 TH and tubes, benign pathology REMOVAL OF OVARY(S) Left 05/2020 benign path- see 08/13 msg TUBAL LIGATION HX FAMILY HISTORY Adopted: Yes Problem Relation Age of Onset Breast Cancer Mother Seizures Mother Thyroid Mother Ovarian cancer Mother other (Fibromylagia) Mother Seizures Paternal Grandmother other (Lung Cancer) Paternal Grandmother other (Coagulopathy) Paternal Grandmother Cervical Cancer Maternal Grandmother Thyroid Maternal Grandmother Seizures Maternal Grandmother Breast Cancer Maternal Grandmother Seizures Paternal Grandfather other (Pancreatic Cancer) Paternal Grandfather other (Coagulopathy) Paternal Grandfather other (Leukemia) Paternal Aunt Seizures Father Heart Father 39 OH other (Coagulopathy) Paternal Aunt Seizures Maternal Grandfather other (autism, fragile x) Sister fathers side ADD/ADHD Brother mother's side Bipolar disorder Brother Autism Brother Autism Brother father s side Alcohol/Drug Brother mother's side Bipolar disorder Brother other (Down syndrome) Sister mother's side other (border line Autism) Son other (healthy) Son other (healthy) Son other (healthy) Daughter other (pneumonia) Daughter SOCIAL HISTORY: -Lives in [place], [place] -Patient lives alone? -Vocation: -Education: -Cigarette, alcohol, substance use: -Functional status: -Patient driving? Review of Systems VITAL SIGNS: BP 121/84 (BP Site: Right Arm, BP Position: Sitting, BP Cuff Size: Regular Adult) Pulse 79 Ht 167.6 cm (5' 6 ) Wt 68 kg (150 lb) LMP 11/04/2018 BMI 24.21 kg/m General Examination: General Exam Neurological Exam IMPRESSION: Ms. Fernando Guido is a 26 year old woman with previous confirmed diagnosis of PNES based on videoEEG evaluation at [facility] in 2016 here for evaluation of similar but more intense spells. Patient reports that an epilepsy diagnosis was confirmed but I do not see any objective evidence of epilepsy diagnosis from outside neurologist or EEG. Her most recent outside EEG 09/04/2021 was normal (per report; actual EEG not available for review). Discussed that if she wanted another opinion, I would offer a repeat evaluation for diagnosis of these spells. She was upset and left the clinic when I told her I would not start medication without confirming epilepsy diagnosis as the only objective evidence I have from previous EMU evaluation is a diagnosis of PNES. She tells me she has already done CBT before she left. Classification Summary PLAN: If patient chooses, Repeat diagnostic EMU evaluation prior to initiating any medical treatment for seizure like spells. Data reviewed as above including: outside records, electronic medical record I discussed the risks, benefits and alternatives of the medical plan with the patient. Questions were answered. The patient agreed with the plan as discussed. FOLLOW-UP: No follow-ups on file. I spent a total of 20 minutes on the date of the service which included: [id number] patient care completing clinical documentation obtaining and/or reviewing separately obtained history Isreal Beckham MD Associate Staff, Epilepsy [facility] November 12, 2021 Office phone: [phone] cc: Primary Care Physician: Gaby Lerner MD, MD [address] [address] Referring: SELF Phone: N/A Fax: Patient: Ms. Fernando Guido [address] [facility] [id number] documented in this encounter [facility] 10-25-2021 Miscellaneous Notes Botox referral sent to pharmacy. Jaki Jonas RN documented in this encounter [facility] 10-22-2021 Miscellaneous Notes The following approved medication requests have been transmitted electronically. Signed Prescriptions Disp Refills DANNIELLE 0.1 mg/24 hr 16 Patch 0 Sig: apply ONE PATCH topically TWICE A WEEK DIRECTED TIM: No Authorizing Provider: UZAIR PARKS MD Pharmacy requesting refill of Dannielle patch. Spoke to patient, name and verified. Confirms she is still using the patch and would like partial refill to last until her appointment with Dr. Khan on 01/21/22. Routing to Dr. Parks. LV:04/22/2021 Dr. Parks [facility] The following diagnoses were relevant to this visit: (N95.9) Menopausal and perimenopausal disorder (primary encounter diagnosis) (E89.40) perimenopause s/p TH (F31.9) Bipolar 1 disorder (HCC) Patient expresses frustration with me throughout our visit today.mostly related to several of the points I wanted to emphasize during the conversation (ie when I discussed how patch not sticking may impact symptoms, etc-she states that I don't understand her, I asked for clarification, and she tells me to just move on, and other similar interactions). Feels that I am not listening to her, whatever points I bring up to discuss potential concerns/clarity about cost with her insurance change,, etc-all seem to have frustrated her today for some reason. I apologized for her experience at the visit today, and tried to keep quiet throughout most of the latter half of the visit to understand patient concerns. I was trying to offer oral estradiol so we can more easily dose adjust, and it would be much cheaper throughout all of her insurance changes during this time; she prefers changed to the Vivelle-Dot patch, which was also an option, but can be more costly. Discussed option of increasing progesterone in the future to, but would recommend 1 change at a time. We can do estrogen testing after the estrogen dose has been finalized to make sure she is absorbing. She would plan to have that done at [facility], if her insurance at the turn of the year still covers [facility]. I gave her a limited supply, as follow-up will be needed (has appointment in July), which can be with me, or one of my partners, or a menopause provider locally, as per patient preference, and insurance concerns. What ever options are chosen in the future, need to watch medication interactions and update any meds given by psychiatry. La Driver RN October 22, 2021 2:25 PM documented in this encounter [facility] 10-22-2021 History of Present illness Narrative [facility] - Follow up Visit Last OV:04/18/19 Accompanied by: Self Primary Problem List: ACTIVE PROBLEM LIST Bipolar 1 Disorder (Hcc) History of Depression History of Drug Abuse ([facility]) Poor Historian Ptsd (Post-Traumatic Stress Disorder) Polysubstance Abuse ([facility]) Migraines Asthma Anxiety Seizure ([facility]) Gerd (Gastroesophageal Reflux Disease) Tobacco Use perimenopause s/p TH Chief Complaint: Headaches Interval Headache Hx: Having arthroscopy R knee 11/02/21 Plan from last visit:Botox Headache 1 Location: holcephalic Quality/Description: throbbing and pressure Associated Symptoms: Photophobia: yes Phonophobia: yes Nausea: yes Vomiting: yes Other symptoms: neck pain and osmophobia Worse with activity: yes Number of migraine headache days/month: 20 Migraine headache severity: 8/10 Number of NON-migraine headache days/month: 0 (Incomplete) Number of headache free days/month: 10 Duration of headaches with treatment: continuous Triggers: stress, weather changes and sleep- too little Most common time of day for headache to begin: morning and anytime Aura: sunspots Days missed from work or school in the last month: 25 days Headache status since the last visit: worse Lifestyle: Sleep: 5 hours Exercise: PT Issues and questions to be addressed: Medications Current Outpatient Medications Medication Sig ipratropium-albuterol (DUONEB) 0.5 mg-3 mg(2.5 mg base)/3 mL nebu Inhale 3 mL as instructed. mometasone-formoterol (DULERA) 200-5 mcg/actuation inhaler Inhale 2 Puffs as instructed. VITAMINS B COMPLEX tab Take 1 tablet by mouth once daily. escitalopram oxalate (LEXAPRO) 20 mg tablet Take 20 mg by mouth once daily. progesterone micronized (PROMETRIUM) 200 mg capsule Take 1 capsule by mouth daily with dinner. gabapentin (NEURONTIN) 300 mg capsule Take 1 capsule by mouth once daily. (Patient taking differently: Take 300 mg by mouth three times daily. ) tiotropium (SPIRIVA WITH HANDIHALER) 18 mcg inhalation capsule Inhale 1 capsule as instructed once daily. lithium carbonate 600 mg capsule Total of 1800 mg per day albuterol HFA (PROAIR HFA) 90 mcg/actuation inhaler Inhale 2 Puffs as instructed every 4 hours as needed. Cholecalciferol, Vitamin D3, 2,000 unit cap Take 1 capsule by mouth once daily. one po daily acetaminophen (TYLENOL) 500 mg tablet Take 2 tablets by mouth every 8 hours as needed. prochlorperazine (COMPAZINE) 5 mg tablet Take 2 tablets by mouth every 8 hours as needed for nausea/vomiting. chlorzoxazone (PARAFON FORTE DSC) 500 mg tablet Take 1 tablet by mouth four times daily. DANNIELLE 0.1 mg/24 hr apply ONE PATCH topically TWICE A WEEK DIRECTED No current facility-administered medications for this visit. ALLERGIES Allergen Reactions Clindamycin Hives, Shortness of Breath Dicyclomine Itching Flagyl [Metronidazo* Itching Keflex [Cephalexin] Anaphylaxis Latex Rash Mobic [Meloxicam] Other: See Comments Chest pain Penicillin Hives Per pt anything in the penicillin family she is allergic to Prednisone Rash, Swelling Rash and tongue swelling 20 mins after taking prednisone Procardia [Nifedipi* Hives Hives and seizures per pt Progesterone Aqueous Rash Progesterone cream only Sulfa (Sulfonamide * Hives Terbutaline Hives Per pt has hives and seizures Tessalon [Benzonata* Rash Zofran [Ondansetron* Swelling Prior Therapies Duration of Use Dose Reason for Discontinuation Anti-Convulsant Divalproex sodium (Depakote) Gabapentin (Neurontin) Levetiracetam (Keppra) Topiramate (Topamax, Trokendi XL, Qudexy) Anti-Depressant and Antipsychotic Amitriptyline (Elavil) Aripiprazole (Abilify) Bupropion (Wellbutrin) Escitalopram (Lexapro) Fluoxetine (Prozac) [place] (Eskalith, Lithobid) Antiemetics Ondansetron Prochlorperazine Promethazine Reglan (Metoclopramide) Anti-Migraine Rizatriptan (Maxalt) Sumatriptan (Imitrex, Sumavel) Blood Pressure Metoprolol (Lopressor,Toprol XL) Botulinum Toxin Onabotulinum Toxin A (Botox) Muscle Relaxer Baclofen (Lioresal) Cyclobenzaprine (Flexeril) Methocarbamol (Robaxin) Sleep Aids Melatonin Trazodone (Desyrel) Other Medications Diphenhydramine (Benadryl) Prednisone Over the Counter Medications Acetaminophen (Tylenol) Ibuprofen (Advil, Motrin) Naproxen sodium (Aleve) HEADACHE SCORES: Headache Questions 03/11/2021 10/05/2021 10/19/2021 ER visits since last office visit: 13 10 - Hospital stays since last office visit 0 0 - Limited ADLs in the last month: 20 20 - Time missed from work or school in the last month: 15 25 25 Days headache pain free in the last month: 7 5 - Days per month with ALL of the following symptoms - decreased productivity, light sensitivity and nausea: 20 - 25 Days per month with non-migraine headache: 3 Incomplete Incomplete Initial improvement of headache after botox injection at last visit: Minimally improved Much improved Much improved PRN medication usage in the last month: 20 25 - Patient impression of improvement since last visit: Very much worse Very much worse Very much worse HIT-6 01/14/2021 03/11/2021 10/05/2021 HIT-6 - - - HIT-6 70 (Severe impact) 76 (Severe impact) 78 (Severe impact) RUPERTO - 2/7 SCORES 10/05/2021 10/05/2021 10/05/2021 RUPERTO-2 Score 2 2 2 RUPERTO-7 Score - - - Migraine Specific QOL - Higher scores indicate better HRQL 04/17/2019 07/15/2019 Role Function-Restrictive Transformed Score (range: 0-100) 42.85 54.28 Role Function-Preventive Transformed Score (range: 0-100) 35 40 Emotional Function Transformed Score (range: 0-100) 0 26.66 PHQ-9 10/05/2021 10/05/2021 10/05/2021 Score 15 15 15 I have reviewed the Kervin Status Assessment responses and discussed these with the patient: yes Eva Shin, ROYAL.MANAGER BANQUET Studies to Review: No New Health Issues: No New Social History: No New Family History: No REVIEW OF SYSTEMS: Review of system: unchanged from the previous visit (sleep patterns, mood, energy, appetite, stress, exercising). PHYSICAL EXAMINATION: VS: BP 125/74 (BP Site: Left Arm, BP Position: Sitting, BP Cuff Size: Regular Adult) Pulse 117 Ht 167.6 cm (5' 6 ) Wt 70.2 kg (154 lb 11.2 oz) LMP 11/04/2018 SpO2 100% BMI 24.97 kg/m General: Alert and oriented. Answered questions in an appropriate manner. Made eye contact without apparent pain behavior. Musculoskeletal: Tenderness to palpation of cervical spine and upper trapezius: Yes bilaterally., Suboccipital tenderness: Yes bilaterally. HEENT: Head is normocephalic and features were symmetric. Cranial Nerves: II: Pupils: symmetric, Ill,lV,Vl: nl eye movements VII: Face symmetric. Motor: Bulk: Normal for age and gender. No abnormal movements were appreciated. Gait: Unassisted, normal Normal stride length, base, and normal arm swing. Walks with cane IMPRESSION: Intractable chronic migraine without aura and without status migrainosus (primary encounter diagnosis) Fernando Guido is a 26 year old year old female, with a history of Bipolar 1,asthma,psychogenic seizures,PTSD,hx drug abuse, and migraines, she received Botox x 1 a few years ago and had a 50% decrease headaches. Her neurological examination is essentially normal at this visit. We will get a precert for Onabotulinum Toxin A using the PREEMPT protocol. This patient meets FDA criteria for Chronic Migraine without aura, without mention of intractable migraine without mention of status migrainosus. The migraine lasts for greater than 4 hours and has been chronic for more than three months. Onabotulinum Toxin A is FDA approved for chronic migraine. Her headaches are associated with photophobia, phonophobia, osmophobia, nausea, vomiting, worse with movement for three or more months. Patient will not use in conjunction with CGRP preventive medications. Medication overuse, alternate diagnosis, confounding psychiatric or social stresses have been ruled out as the cause of headaches. Severity: moderate to severe Quality: throbbing Migraine days a month: 20 Headache days a month: 0 Headache free days a month: 10 The following preventative medications have been tried for at least three months without benefit or discontinued due to side effects: Anti-Convulsant Divalproex sodium (Depakote) Gabapentin (Neurontin) Levetiracetam (Keppra) Topiramate (Topamax, Trokendi XL, Qudexy) Anti-Depressant and Antipsychotic Amitriptyline (Elavil) Aripiprazole (Abilify) Bupropion (Wellbutrin) Escitalopram (Lexapro) Fluoxetine (Prozac) [place] (Eskalith, Lithobid) Blood Pressure Metoprolol (Lopressor,Toprol XL) Botulinum Toxin Onabotulinum Toxin A (Botox) The following abortive medications have been tried but require high frequency use which can lead to Medication Overuse Headache: Anti-Migraine Rizatriptan (Maxalt) Sumatriptan (Imitrex, Sumavel) Over the Counter Medications Acetaminophen (Tylenol) Ibuprofen (Advil, Motrin) Naproxen sodium (Aleve) PLAN: Apply Botox Compazine for nausea Parafon Forte bridge MEDICATION TREATMENT: Medications to Start Taking prochlorperazine (COMPAZINE) 5 mg tablet Take 2 tablets by mouth every 8 hours as needed for nausea/vomiting. chlorzoxazone (PARAFON FORTE DSC) 500 mg tablet Take 1 tablet by mouth four times daily. HEADACHE MANAGEMENT: (You are the primary guardian of your health and headache. Keep track of all medications: This includes the reason for use, side effects and benefits.) Headache education was done. Discussed lifestyle modification including increased oral hydration, decreased caffeine, exercise and stress management. Discussed treatment options including preventive and acute medications, natural supplements, and infusion therapy. Discussed medication overuse headache and to limit use of acute treatments to no more than 2 days/week or 10 days/month. Discussed medication side effects, adverse reactions and drug interactions. Written educational materials and patient instructions outlining all of the above were given. Follow-up: for BOTOX Level of service: Est level 4 (30-39 min). Time spent 35 min on the day of service, which included preparing to see the patient, [id number] patient care, completing clinical documentation, performing a medically appropriate examination, counseling and educating the patient/family/caregiver and ordering medications, tests, or procedures. Eva Shin APRN.HARSH documented in this encounter [facility] Work Phone: [phone]) 351-101202-14-2022 Procedure note* Félix Howell MD - 09/06/2021 9:40 AM EST Date of Study: 09/04/2021 ORDERING PHYSICIAN: Félix Howell MD REASON FOR STUDY: Headache disorder CLINICAL INTERPRETATION: EEG is within normal limits. No definite potentially epileptogenic abnormalities or electrographic seizure discharges were identified. EEG CLASSIFICATION: Normal (awake and sleep). REPORT: EEG revealed 11 Hz to 12 Hz activity over the posterior head regions which attenuated bilaterally with eye opening. No definite potentially epileptogenic abnormalities or electrographic seizure discharges were identified during the resting state, photic stimulation, drowsiness or sleep. documented in this [facility]02-12-2022 Miscellaneous Notes* Interdisciplinary - Jaspreet Virgen - 09/04/2021 9:00 AM EST EEG complete. Dr. Howell to read. documented in this [facility]12-14-2021 Emergency department Note* Philip Robin RN - 07/06/2021 9:15 PM EST Pt refuses last vitals * Philip Robin RN - 07/06/2021 8:45 PM EST Pt sits up in bed demanding to speak to this RN. Pt says she is leaving right now and not waiting till 9:30. Informed pt again that she is able to leave 6 hrs after her dose of Ativan and instructed by Dr Wilson and pharmacy staff. Pt says she does not care, she wants to leave now. [facility] cash management officer Sarath in room and talks with pt. * Philip Robin RN - 07/06/2021 8:21 PM EST Per pharmacist and Dr Wilson, pt able to be discharged at 1930. * Philip Robin RN - 07/06/2021 7:39 PM EST Pt rests in bed with eyes closed. Awakens easy to name. No c/o's. VSS. * Scott Wilson MD - 07/06/2021 7:16 PM EST Images from the original note were not included. ED Diagnosis and Summary 1. Pseudoseizure ED Summary Screening blood work, including prolactin and lactate, is normal. A low lithium level is noted. has a documented history of pseudoseizures. She had several episodes of seizure-like activity in the ED which I was able to stop with a sternal rub. She was not post-ictal between any of these episodes. I have a low suspicion for genuine seizures. 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 She will be discharged. History Chief Complaint Patient presents with Seizures 26M, history of bipolar, history or non-epileptic seizure-like activity, presents with seizure-likeactivity. She reports she has had 4 seizures in the past 2 days. She reports she is on Topamax for bipolar disorder but reports that she has never been prescribed any medication for seizures. She haslost custody of her kids due to psychiatric illness. Ms. Mayo was brought back to the trauma bay after staff in the waiting room noted seizure-like activity. She was given Ativan before I was able to assess her. When I entered the trauma bay she appeared to be seizing but the activity stopped with asternal rub and she immediately began talking to me without any post-ictal state. She did not bite h er tongue and was not incontinent. She is not febrile. She follows commands and speaks in full sentences. A review of the electronic medical record reveals a documented history of pseudoseizures. Review of Systems Neurological: Positive for seizures (states she isn't prescribed any medication for seizures). All other systems reviewed and are negative. ED Current OP Medications Medication Sig Dispense Doc. Provider albuterol 108 (90 Base) MCG/ACT inhaler Inhale 1 puff into the lungs every 6 hours as needed for Wheezing and/or Shortness of breath. Provider, MD Minor Fluticasone Furoate-Vilanterol (BREO ELLIPTA) 200-25 MCG/INH AEPB Inhale 1 Actuation into the lungsdaily. 60 each Alexandra, Tyson, PLAN NURSE MANAGER BANQUET lithium 600 MG capsule Take 600 mg by mouth 2 times daily (with meals). Provider, MD Minor tiotropium bromide monohydrate (SPIRIVA RESPIMAT) 2.5 MCG/ACT AERS Inhale 2 puffs into the lungs daily. Provider, Historical, topiramate (TOPAMAX) 25 MG tablet Take 75 mg by mouth daily. Provider, Historical, Allergies (Review Complete on: 07/06/21) Agent Severity Comments Latex High Penicillins High Sulfa Drugs High Brethaire [Terbutaline] Seizures Cephalexin Dicyclomine Meloxicam Chest Pain Procardia [Nifedipine] Seizures Tessalon [Benzonatate] Hypotension Zofran [Ondansetron] Prednisolone Low Medical History Past Medical History Date Comments History of asthma [Z87.09] Emphysema of lung (HCC) [J43.9] Surgical History Past Surgical History Laterality Date Comments Hysterectomy [SHX81] Social History Tobacco History Smoking Status Current Every Day Smoker Smoking Start Date 07/24/2005 Smoking Frequency 1 pack/day Smoking Tobacco Type Cigarettes Smokeless Tobacco Use Current User Alcohol History Alcohol Use Status Yes Drinks/Week 1 Glasses of wine per week Amount 1.0 standard drink of alcohol/wk Drug Use Drug Use Status Never Sexual Activity Sexually Active Yes Partners Male Activities of Daily Living Not Asked Nursing notes, past medical/surgical/family/social/psychiatric history, and medication and allergy list reviewed. Agree with above unless otherwise noted. Physical Exam ED Triage Vitals [07/06/21 1309] BP 136/88 Heart Rate 114 Resp 17 Temp 98.7 F (37.1 C) Temp Source FOREHEAD SpO2 98 % Weight 150 lb (68 kg) Height 5' 5 (1.651 m) BMI (Calculated) 24.96 Physical Exam Vitals and nursing note reviewed. Constitutional: Comments: Appears to be seizing when I enter the trauma bay; seizure stops with a sternal rub and the patient immediately begins speaking and follows commands and is not post-ictal HENT: Head: Normocephalic and atraumatic. Mouth/Throat: Comments: No bite mcclure noted on tongue Eyes: Extraocular Movements: Extraocular movements intact. Pupils: Pupils are equal, round, and reactive to light. Cardiovascular: Rate and Rhythm: Regular rhythm. Tachycardia present. Pulmonary: Effort: Pulmonary effort is normal. Breath sounds: Normal breath sounds. Abdominal: Palpations: Abdomen is soft. Tenderness: There is no guarding. Musculoskeletal: General: No signs of injury. Cervical back: Normal range of motion and neck supple. Skin: General: Skin is warm and dry. Findings: No rash. Neurological: General: No focal deficit present. Comments: Seizure-like activity noted; patient grimaces with a sternal rub and seizure-like activity stops; patient immediately begins answering questions and following commands ED Course Procedures Medical Decision Making Number of Diagnoses or Management Options Amount and/or Complexity of Data Reviewed Clinical lab tests: ordered and reviewed Scott Wilson MD 07/06/211928 * Megan Arita MST - 07/06/2021 6:48 PM EST Pt stated she wasn't feeling well. She said that she felt like she was going to have another seizure. Pt closed her eyes, the pts legs and arms started shaking shortly after. lasted about 2 minutes. * Megan Arita MST - 07/06/2021 6:25 PM EST Pt is alert and on the phone talking to fiance. * Carolyn Palacios MST - 07/06/2021 6:16 PM EST Pt moved to room 9 at this time. Pt sts to throw her pants and tank top away that were cut off. Gave pt change that was in pants pockets. * Carolyn Palacios MST - 07/06/2021 5:13 PM EST This MST at bedside with pt. * Philip Robin RN - 07/06/2021 4:46 PM EST Talked with haider Rodríguez on phone to obtain ride home for pt. Will call back within 20 minutes. * Philip Robin RN - 07/06/2021 4:20 PM EST Pts arms and legs shaking again and HR 160's. Dr Wilson in room to examine pt. Sternal rub per Dr Wilson and seizures stop. Dr Wilson talks with pt about stress seizures. Says will be able to dc pt home today. Pt says drove here from [place] and does not have anyone to pick her up. Says drove only working vehicle that she and her fiance have. * Philip Robin RN - 07/06/2021 4:12 PM EST Pt was resting in bed with eyes closed when both legs and arms started shaking. This RN at bedside and supporting pts head. HR up to 150's. 02 2l remains on. Shaking lasated approx 2 minutes. Pt opens eyes after same and says she feels tired. Warm blankets on . * Philip Robin RN - 07/06/2021 3:28 PM EST Pt says she has had 10 seizures past 2 wks with 5 past of them in the past 2 days. * Philip Robin RN - 07/06/2021 3:[address] Wilson examines pt * Tawana Degroot RN - 07/06/2021 1:07 PM EST Pt. Ambulates to triage, sts that she has had 4 seizures in the past two days, 10 in the past two weeks. Does see , unable to get in with him. Was sent by her PCP for eval. Pt. Is alert and oriented x 4, resps e/u, nad noted, skin p/w/d. [facility] Miscellaneous Notes* D/C Planning - Radha Jimenes RN - 07/06/2021 5:03 PM EST Spoke with pt at bedside re transportation, She is currently waiting on [facility]Con to call her back. [facility] does not provide transportation. [facility] shuttle is not available. [facility] NotePROCEDURE: KNEE RIGHT, 11/27/2020 8:21 AM EDT CLINICAL INDICATIONS: Anterior cruciate ligament repair, followup assessment COMPARISON: 10/07/2020. TECHNIQUE: AP and lateral views right knee, 2 images FINDINGS: Acute fracture, malalignment or bone destruction is not evident. There is anterior cruciate ligament repair. Hardware complication is not evident. Joint spaces preserved. Minimal patellar enthesopathy is seen. No significant knee effusion. IMPRESSION: 1. Stable anatomic alignment of the anterior cruciate ligament repair without hardware complication 2. No acute osseous pathology 3. Minimal patellar enthesopathyC[facility] NotePROCEDURE: PATELLA RIGHT, 10/07/2020, 10:29 AM EDT CLINICAL INDICATIONS: Anterior cruciate ligament repair. COMPARISON: 09/23/2020 TECHNIQUE: Right knee 3 views FINDINGS: There is stable anterior cruciate ligament repair. Hardware complication is not evident. No fracture or bone destruction. There is resolution of knee effusion and postoperative gas. Mild soft tissue swelling remains. IMPRESSION: 1. Stable anterior cruciate ligament repair without hardware complication. 2. No acute osseous pathology. 3. Resolution of knee effusion and postoperative gas. 4. Soft tissue swelling remains.[facility]03-03-[facility]21 NotePROCEDURE: PATELLA RIGHT, 09/23/2020 2:21 PM EST CLINICAL INDICATIONS: Anterior cruciate ligament repair, 2 week followup COMPARISON: 07/08/2020 TECHNIQUE: Right knee, 2 views FINDINGS: There is likely revision of anterior cruciate ligament repair. Convincing hardware complication is not evident. The bones are normal in density. Acute fracture or bone destruction are not seen. Knee effusion, gas within the suprapatellar recess remains. Soft tissue swelling anterior knee noted. IMPRESSION: 1. Interval revision of anterior cruciate ligament repair without apparent hardware complication 2. No acute osseous pathology 3. Suprapatellar gas and knee effusion remain 4. Anterior soft tissue swelling of the kneeC[facility]12-16-2020 NotePROCEDURE: PATELLA RIGHT, 07/08/2020 8:00 AM EST CLINICAL INDICATIONS: Chronic instability of the right knee. COMPARISON: None TECHNIQUE: Right knee 3 views. FINDINGS: Anterior cruciate ligament repair is seen. Distal femoral anchor is intact. Hardware complication is not evident. Bones are normal in density. Acute fracture or malalignment is not evident. Joint spaces are preserved. No knee effusion. Regional soft tissues normal. IMPRESSION: 1. Previous anterior cruciate ligament repair. 2. 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 Iman Akhtar MD 10/13/2016Pt states she is . One child at age 1 from pneumonia. She had several 2nd trimester losses. The FOB is the father of 7 of her pregnancies. He is here with her today. TKRN with care elsewhere, antepart 10/13/2016 12/27/2016 Overview: 10/13/2016Patient is transferring care from Dr Varela in [place]. She states she had started care at [facility] and then transferred to [place] because she moved to the [place] area. She has been recently seen at in [place] by [facility] and hospitalized for PTL. Patient signed a release of records form to obtain her medical records from [facility], [place] [facility] and Dr Varela.TKRN History of labor, current 09/2212/27/2016 Overview: Today 1.5 cm, States she was 3 cm last week October 13, 2016 given bmz on admitted at [facility] for fever Iman Akhtar MD History of labor 10/13/2016 017 Overview: 10/13/2016Ashley has been recently seen at in [place] by [facility] and hospitalized for PTL. She states she received steroid injections and continues [place] injections in the home. TKRN UTI (urinary tract infection) in , ante 10/13/2016 12/27/2016 Overview: 10/13/2016Ashley is currently finishing her Macrobid rx for a UTI. TKRN History of depression 10/13/2016 12/27/2016 Custody issue 10/13/2016 12/27/2016 Overview: 10/13/2016Ashley does not have custody of any of her children. One has been adopted out by a family member and another is in the process of getting adopted out, the other is in custody of a family member.TKRN TKRN Tobacco use during , antepartum 017 12/27/2016 Overview: 10/13/2016 Pt smokes 2-3 cigarettes a day, down from 1/2 pack a day. Discussed risks of smoking during . Advised pt to quit. TKRN History of seizures 10/13/2016 01/25/2017 Overview: 10/13/2016 She states she has been diagnosed with pseudoseizures by doctor at the [facility]. She has been off Keppra since 10/2015. She states her last seizure was 09/2016. TKRN H/O pre-eclampsia in prior p regnancy, currently , unspecified trimester 10/13/2016 12/27/2016 Family history of defects 10/13/2016 01/25/2017 Overview: 10/13/2016Patient's brother born with Down Syndrome. FOB's sister born with microcephaly. . FOB born with hole in heart.TKRN Family history of genetic disease 10/13/2016 01/25/2017 Overview: 10/13/2016FOB has 2 daughters with M.D Short interval between pregn ancies affecting , antepartum 10/13/2016 12/27/2016 Previous delivery, antepartum 10/23/2015 12/27/2016 , high-risk 10/23/2015 12/27/2016 Seizures 10/22/2015 12/27/2016 Surgical menopause on hormone replacement therap y 02/21/2019 Surgical menopause 06/03/2019 documented as of this encounter (statuses as of 10/22/2021) [facility]11-11-2019 History of Past illness Narrative* Problem Noted Date Resolved Date Hormone replacement therapy (HRT) 06/03/2019 07/16/2020 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 Iman Akhtar MD 10/13/2016Pt states she is . One child at age 1 from pneumonia. She had several 2nd trimester losses. The FOB is the father of 7 of her pregnancies. He is here with her today. TKRN with care elsewhere, antepart 10/13/2016 12/27/2016 Overview: 10/13/2016Patient is transferring care from Dr Varela in [place]. She states she had started care at [facility] and then transferred to [place] because she moved to the [place] area. She has been recently seen at in [place] by [facility] and hospitalized for PTL. Patient signed a release of records form to obtain her medical records from [facility], [facility] and Dr Varela.TKRN History of labor, current 09/2212/27/2016 Overview: Today 1.5 cm, States she was 3 cm last week October 13, 2016 given bmz on 10/01- admitted at [facility] for fever Iman Akhtar MD History of labor 10/13/2016 017 Overview: 10/13/2016Ashley has been recently seen at in [place] by [facility] and hospitalized for PTL. She states she received steroid injections and continues [place] injections in the home. TKRN UTI (urinary tract infection) in , ante 10/13/2016 12/27/2016 Overview: 10/13/2016Ashley is currently finishing her Macrobid rx for a UTI. TKRN History of depression 10/13/2016 12/27/2016 Custody issue 10/13/2016 12/27/2016 Overview: 10/13/2016Ashley does not have custody of any of her children. One has been adopted out by a family member and another is in the process of getting adopted out, the other is in custody of a family member.TKRN TKRN Tobacco use during , antepartum 017 12/27/2016 Overview: 10/13/2016 Pt smokes 2-3 cigarettes a day, down from 1/2 pack a day. Discussed risks of smoking during . Advised pt to quit. TKRN History of seizures 10/13/2016 01/25/2017 Overview: 10/13/2016 She states she has been diagnosed with pseudoseizures by doctor at the [facility]. She has been off Keppra since 10/2015. She states her last seizure was 09/2016. TKRN H/O pre-eclampsia in prior p regnancy, currently , unspecified trimester 10/13/2016 12/27/2016 Family history of defects 10/13/2016 01/25/2017 Overview: 10/13/2016Patient's brother born with Down Syndrome. FOB's sister born with microcephaly. . FOB born with hole in heart.TKRN Family history of genetic disease 10/13/2016 01/25/2017 Overview: 10/13/2016FOB has 2 daughters with M.D Short interval between pregn ancies affecting , antepartum 10/13/2016 12/27/2016 Previous delivery, antepartum 10/23/2015 12/27/2016 , high-risk 10/23/2015 12/27/2016 Seizures 10/22/2015 12/27/2016 Surgical menopause on hormone replacement therap y 02/21/2019 Surgical menopause 06/03/2019 documented as of this encounter (statuses as of 10/22/2021) [facility]11-11-2019 History of Past illness Narrative* Problem Noted Date Resolved Date Hormone replacement therapy (HRT) 06/03/2019 07/16/2020 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 Iman Akhtar MD 10/13/2016Pt states she is . One child at age 1 from pneumonia. She had several 2nd trimester losses. The FOB is the father of 7 of her pregnancies. He is here with her today. TKRN with care elsewhere, antepart um 10/13/2016 12/27/2016 Overview: 10/13/2016Patient is transferring care from Dr Varela in [place]. She states she had started care at [facility] and then transferred to [place] because she moved to the [place] area. She has been recently seen at in [place] by [facility] and hospitalized for PTL. Patient signed a release of records form to obtain her medical records from [facility], [facility] and Dr Varela.TKRN History of labor, current 09/2212/27/2016 Overview: Today 1.5 cm, States she was 3 cm last week October 13, 2016 given bmz on 10/01- admitted at [facility] for fever Iman Akhtar MD History of labor 10/13/2016 017 Overview: 10/13/2016Ashley has been recently seen at in [place] by [facility] and hospitalized for PTL. She states she received steroid injections and continues [place] injections in the home. TKRN UTI (urinary tract infection) in , ante 10/13/2016 12/27/2016 Overview: 10/13/2016Ashley is currently finishing her Macrobid rx for a UTI. TKRN History of depression 10/13/2016 12/27/2016 Custody issue 10/13/2016 12/27/2016 Overview: 10/13/2016Ashley does not have custody of any of her children. One has been adopted out by a family member and another is in the process of getting adopted out, the other is in custody of a family member.TKRN TKRN Tobacco use during , antepartum 017 12/27/2016 Overview: 10/13/2016 Pt smokes 2-3 cigarettes a day, down from 1/2 pack a day. Discussed risks of smoking during . Advised pt to quit. TKRN History of seizures 10/13/2016 01/25/2017 Overview: 10/13/2016 She states she has been diagnosed with pseudoseizures by doctor at the [facility]. She has been off Keppra since 10/2015. She states her last seizure was 09/2016. TKRN H/O pre-eclampsia in prior p regnancy, currently , unspecified trimester 10/13/2016 12/27/2016 Family history of defects 10/13/2016 01/25/2017 Overview: 10/13/2016Patient's brother born with Down Syndrome. FOB's sister born with microcephaly. . FOB born with hole in heart.TKRN Family history of genetic disease 10/13/2016 01/25/2017 Overview: 10/13/2016FOB has 2 daughters with M.D Short interval between pregn ancies affecting , antepartum 10/13/2016 12/27/2016 Previous delivery, antepartum 10/23/2015 12/27/2016 , high-risk 10/23/2015 12/27/2016 Seizures 10/22/2015 12/27/2016 Surgical menopause on hormone replacement therap y 02/21/2019 Surgical menopause 06/03/2019 documented as of this encounter (statuses as of 10/25/2021) [facility]2019 History of Past illness Narrative* Problem Noted Date Resolved Date Hormone replacement therapy (HRT) 06/03/2019 07/16/2020 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 Iman Akhtar MD 10/13/2016Pt states she is . One child at age 1 from pneumonia. She had several 2nd trimester losses. The FOB is the father of 7 of her pregnancies. He is here with her today. TKRN with care elsewhere, antepart um 10/13/2016 12/27/2016 Overview: 10/13/2016Patient is transferring care from Dr Varela in [place]. She states she had started care at [facility] and then transferred to [place] because she moved to the [place] area. She has been recently seen at in [place] by [facility] and hospitalized for PTL. Patient signed a release of records form to obtain her medical records from [facility], [facility] and Dr Varela.TKRN History of labor, current 09/2212/27/2016 Overview: Today 1.5 cm, States she was 3 cm last week October 13, 2016 given bmz on admitted at [facility] for fever Iman Akhtar MD History of labor 10/13/2016 017 Overview: 10/13/2016Ashley has been recently seen at in [place] by [facility] and hospitalized for PTL. She states she received steroid injections and continues [place] injections in the home. TKRN UTI (urinary tract infection) in , ante 10/13/2016 12/27/2016 Overview: 10/13/2016Ashley is currently finishing her Macrobid rx for a UTI. TKRN History of depression 10/13/2016 12/27/2016 Custody issue 10/13/2016 12/27/2016 Overview: 10/13/2016Ashley does not have custody of any of her children. One has been adopted out by a family member and another is in the process of getting adopted out, the other is in custody of a family member.TKRN TKRN Tobacco use during , antepartum 017 12/27/2016 Overview: 10/13/2016 Pt smokes 2-3 cigarettes a day, down from 1/2 pack a day. Discussed risks of smoking during . Advised pt to quit. TKRN History of seizures 10/13/2016 01/25/2017 Overview: 10/13/2016 She states she has been diagnosed with pseudoseizures by doctor at the [facility]. She has been off Keppra since 10/2015. She states her last seizure was 09/2016. TKRN H/O pre-eclampsia in prior p regnancy, currently , unspecified trimester 10/13/2016 12/27/2016 Family history of defects 10/13/2016 01/25/2017 Overview: 10/13/2016Patient's brother born with Down Syndrome. FOB's sister born with microcephaly. . FOB born with hole in heart.TKRN Family history of genetic disease 10/13/2016 01/25/2017 Overview: 10/13/2016FOB has 2 daughters with M.D Short interval between pregn ancies affecting , antepartum 10/13/2016 12/27/2016 Previous delivery, antepartum 10/23/2015 12/27/2016 , high-risk 10/23/2015 12/27/2016 Seizures 10/22/2015 12/27/2016 Surgical menopause on hormone replacement therap y 02/21/2019 Surgical menopause 06/03/2019 documented as of this encounter (statuses as of 11/12/2021) [facility]2017 History of Past illness Narrative* Problem Noted Date Resolved Date 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 Iman Akhtar MD 10/13/2016Pt states she is . One child at age 1 from pneumonia. She had several 2nd trimester losses. The FOB is the father of 7 of her pregnancies. He is here with her today. TKRN with care elsewhere, antepart um 10/13/2016 12/27/2016 Overview: 10/13/2016Patient is transferring care from Dr Varela in [place]. She states she had started care at [facility] and then transferred to [place] because she moved to the [place] area. She has been recently seen at in [place] by [facility] and hospitalized for PTL. Patient signed a release of records form to obtain her medical records from [facility], [facility] and Dr Varela.TKRN History of labor, current 09/2212/27/2016 Overview: Today 1.5 cm, States she was 3 cm last week October 13, 2016 given bmz on 10/01- admitted at [facility] for fever Iman Akhtar MD History of labor 10/13/2016 017 Overview: 10/13/2016She has been recently seen at in [place] by [facility] and hospitalized for PTL. She states she received steroid injections and continues [place] injections in the home. TKRN UTI (urinary tract infection) in , ante 10/13/2016 12/27/2016 Overview: 10/13/2016Ashley is currently finishing her Macrobid rx for a UTI. TKRN History of depression 10/13/2016 12/27/2016 Custody issue 10/13/2016 12/27/2016 Overview: 10/13/2016Shbarbi does not have custody of any of her children. One has been adopted out by a family member and another is in the process of getting adopted out, the other is in custody of a family member.TKRN TKRN Tobacco use during , antepartum 017 12/27/2016 Overview: 10/13/2016 Pt smokes 2-3 cigarettes a day, down from 1/2 pack a day. Discussed risks of smoking during . Advised pt to quit. TKRN History of seizures 10/13/2016 01/25/2017 Overview: 10/13/2016 She states she has been diagnosed with pseudoseizures by doctor at the [facility]. She has been off Keppra since 10/2015. She states her last seizure was 09/2016. TKRN H/O pre-eclampsia in prior p regnancy, currently , unspecified trimester 10/13/2016 12/27/2016 Family history of defects 10/13/2016 01/25/2017 Overview: 10/13/2016Patient's brother born with Down Syndrome. FOB's sister born with microcephaly. . FOB born with hole in heart.TKRN Family history of genetic disease 10/13/2016 01/25/2017 Overview: 10/13/2016FOB has 2 daughters with M.D Short interval between pregn ancies affecting , antepartum 10/13/2016 12/27/2016 Previous delivery, antepartum 10/23/2015 12/27/2016 , high-risk 10/23/2015 12/27/2016 Seizures 10/22/2015 12/27/2016 Surgical menopause on hormone replacement therap y 02/21/2019 Surgical menopause 06/03/2019 Tobacco use 11/22/2021 documented as of this encounter (statuses as of 12/10/2021) [facility]2017 History of Past illness Narrative* Problem Noted Date Resolved Date 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 Iman Akhtar MD 10/13/2016Pt states she is . One child at age 1 from pneumonia. She had several 2nd trimester losses. The FOB is the father of 7 of her pregnancies. He is here with her today. TKRN with care elsewhere, antepart um 10/13/2016 12/27/2016 Overview: 10/13/2016Patient is transferring care from Dr Varela in [place]. She states she had started care at [facility] and then transferred to [place] because she moved to the [place] area. She has been recently seen at in [place] by [facility] and hospitalized for PTL. Patient signed a release of records form to obtain her medical records from [facility], [facility] and Dr Varela.TKRN History of labor, current 09/2212/27/2016 Overview: Today 1.5 cm, States she was 3 cm last week October 13, 2016 given bmz on 10/01- admitted at [facility] for fever Iman Akhtar MD History of labor 10/13/2016 017 Overview: 10/13/2016She has been recently seen at in [place] by [facility] and hospitalized for PTL. She states she received steroid injections and continues [place] injections in the home. TKRN UTI (urinary tract infection) in , ante 10/13/2016 12/27/2016 Overview: 10/13/2016Shbarbi is currently finishing her Macrobid rx for a UTI. TKRN History of depression 10/13/2016 12/27/2016 Custody issue 10/13/2016 12/27/2016 Overview: 10/13/2016Ashley does not have custody of any of her children. One has been adopted out by a family member and another is in the process of getting adopted out, the other is in custody of a family member.TKRN TKRN Tobacco use during , antepartum 017 12/27/2016 Overview: 10/13/2016 Pt smokes 2-3 cigarettes a day, down from 1/2 pack a day. Discussed risks of smoking during . Advised pt to quit. TKRN History of seizures 10/13/2016 01/25/2017 Overview: 10/13/2016 She states she has been diagnosed with pseudoseizures by doctor at the [facility]. She has been off Keppra since 10/2015. She states her last seizure was 09/2016. TKRN H/O pre-eclampsia in prior p regnancy, currently , unspecified trimester 10/13/2016 12/27/2016 Family history of defects 10/13/2016 01/25/2017 Overview: 10/13/2016Patient's brother born with Down Syndrome. FOB's sister born with microcephaly. . FOB born with hole in heart.TKRN Family history of genetic disease 10/13/2016 01/25/2017 Overview: 10/13/2016FOB has 2 daughters with M.D Short interval between pregn ancies affecting , antepartum 10/13/2016 12/27/2016 Previous delivery, antepartum 10/23/2015 12/27/2016 , high-risk 10/23/2015 12/27/2016 Seizures 10/22/2015 12/27/2016 Surgical menopause on hormone replacement therap y 02/21/2019 Surgical menopause 06/03/2019 Tobacco use 11/22/2021 documented as of this encounter (statuses as of 01/06/2022) [facility]2017 History of Past illness Narrative* Problem Noted Date Resolved Date 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 Iman Akhtar MD 10/13/2016Pt states she is . One child at age 1 from pneumonia. She had several 2nd trimester losses. The FOB is the father of 7 of her pregnancies. He is here with her today. TKRN with care elsewhere, antepart um 10/13/2016 12/27/2016 Overview: 10/13/2016Patient is transferring care from Dr Varela in [place]. She states she had started care at [facility] and then transferred to [place] because she moved to the [place] area. She has been recently seen at in [place] by [facility] and hospitalized for PTL. Patient signed a release of records form to obtain her medical records from [facility], [facility] and Dr Varela.TKRN History of labor, current 09/2212/27/2016 Overview: Today 1.5 cm, States she was 3 cm last week October 13, 2016 given bmz on 10/01- admitted at [facility] for fever Iman Akhtar MD History of labor 10/13/2016 017 Overview: 10/13/2016She has been recently seen at in [place] by [facility] and hospitalized for PTL. She states she received steroid injections and continues [place] injections in the home. TKRN UTI (urinary tract infection) in , ante 10/13/2016 12/27/2016 Overview: 10/13/2016She is currently finishing her Macrobid rx for a UTI. TKRN History of depression 10/13/2016 12/27/2016 Custody issue 10/13/2016 12/27/2016 Overview: 10/13/2016She does not have custody of any of her children. One has been adopted out by a family member and another is in the process of getting adopted out, the other is in custody of a family member.TKRN TKRN Tobacco use during , antepartum 017 12/27/2016 Overview: 10/13/2016 Pt smokes 2-3 cigarettes a day, down from 1/2 pack a day. Discussed risks of smoking during . Advised pt to quit. TKRN History of seizures 10/13/2016 01/25/2017 Overview: 10/13/2016 She states she has been diagnosed with pseudoseizures by doctor at the [facility]. She has been off Keppra since 10/2015. She states her last seizure was 09/2016. TKRN H/O pre-eclampsia in prior p regnancy, currently , unspecified trimester 10/13/2016 12/27/2016 Family history of defects 10/13/2016 01/25/2017 Overview: 10/13/2016Patient's brother born with Down Syndrome. FOB's sister born with microcephaly. . FOB born with hole in heart.TKRN Family history of genetic disease 10/13/2016 01/25/2017 Overview: 10/13/2016FOB has 2 daughters with M.D Short interval between pregn ancies affecting , antepartum 10/13/2016 12/27/2016 Previous delivery, antepartum 10/23/2015 12/27/2016 , high-risk 10/23/2015 12/27/2016 Seizures 10/22/2015 12/27/2016 Surgical menopause on hormone replacement therap y 02/21/2019 Surgical menopause 06/03/2019 Tobacco use 11/22/2021 documented as of this encounter (statuses as of 01/26/2022) [facility] History of Past illness Narrative* Problem Noted Date Resolved Date 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 Iman Akhtar MD 10/13/2016Pt states she is . One child at age 1 from pneumonia. She had several 2nd trimester losses. The FOB is the father of 7 of her pregnancies. He is here with her today. TKRN with care elsewhere, antepart um 10/13/2016 12/27/2016 Overview: 10/13/2016Patient is transferring care from Dr Varela in [place]. She states she had started care at [facility] and then transferred to [place] because she moved to the [place] area. She has been recently seen at in [place] by [facility] and hospitalized for PTL. Patient signed a release of records form to obtain her medical records from [facility], [facility] and Dr Varela.TKRN History of labor, current 09/2212/27/2016 Overview: Today 1.5 cm, States she was 3 cm last week October 13, 2016 given bmz on 10/01- admitted at [facility] for fever Iman Akhtar MD History of labor 10/13/2016 017 Overview: 10/13/2016She has been recently seen at in [place] by [facility] and hospitalized for PTL. She states she received steroid injections and continues [place] injections in the home. TKRN UTI (urinary tract infection) in , ante 10/13/2016 12/27/2016 Overview: 10/13/2016Shbarbi is currently finishing her Macrobid rx for a UTI. TKRN History of depression 10/13/2016 12/27/2016 Custody issue 10/13/2016 12/27/2016 Overview: 10/13/2016She does not have custody of any of her children. One has been adopted out by a family member and another is in the process of getting adopted out, the other is in custody of a family member.TKRN TKRN Tobacco use during , antepartum 017 12/27/2016 Overview: 10/13/2016 Pt smokes 2-3 cigarettes a day, down from 1/2 pack a day. Discussed risks of smoking during . Advised pt to quit. TKRN History of seizures 10/13/2016 01/25/2017 Overview: 10/13/2016 She states she has been diagnosed with pseudoseizures by doctor at the [facility]. She has been off Keppra since 10/2015. She states her last seizure was 09/2016. TKRN H/O pre-eclampsia in prior p regnancy, currently , unspecified trimester 10/13/2016 12/27/2016 Family history of defects 10/13/2016 01/25/2017 Overview: 10/13/2016Patient's brother born with Down Syndrome. FOB's sister born with microcephaly. . FOB born with hole in heart.TKRN Family history of genetic disease 10/13/2016 01/25/2017 Overview: 10/13/2016FOB has 2 daughters with M.D Short interval between pregn ancies affecting , antepartum 10/13/2016 12/27/2016 Previous delivery, antepartum 10/23/2015 12/27/2016 , high-risk 10/23/2015 12/27/2016 Seizures 10/22/2015 12/27/2016 Surgical menopause on hormone replacement therap y 02/21/2019 Surgical menopause 06/03/2019 Tobacco use 11/22/2021 documented as of this encounter (statuses as of 02/03/2022) [facility] History of Past illness Narrative* Problem Noted Date Resolved Date Recurrent loss (CODE) 10/13/2016 12/27/2016 Overview: Recommend weekly NST Iman Marcanthony, MD October 13, 2016 reviewed history extensively see records for info ordered APL workup negative at [facility]. Iman Akhtar MD 10/13/2016Pt states she is . One child at age 1 from pneumonia. She had several 2nd trimester losses. The FOB is the father of 7 of her pregnancies. He is here with her today. TKRN with care elsewhere, antepart um 10/13/2016 12/27/2016 Overview: 10/13/2016Patient is transferring care from Dr Varela in [place]. She states she had started care at [facility] and then transferred to [place] because she moved to the [place] area. She has been recently seen at in [place] by [facility] and hospitalized for PTL. Patient signed a release of records form to obtain her medical records from [facility], [facility] and Dr Varela.TKRN History of labor, current 09/2212/27/2016 Overview: Today 1.5 cm, States she was 3 cm last week October 13, 2016 given bmz on 10/01- admitted at [facility] for fever Iman Akhtar MD History of labor 10/13/2016 017 Overview: 10/13/2016She has been recently seen at in [place] by [facility] and hospitalized for PTL. She states she received steroid injections and continues [place] injections in the home. TKRN UTI (urinary tract infection) in , ante 10/13/2016 12/27/2016 Overview: 10/13/2016Shbarbi is currently finishing her Macrobid rx for a UTI. TKRN History of depression 10/13/2016 12/27/2016 Custody issue 10/13/2016 12/27/2016 Overview: 10/13/2016Shbarbi does not have custody of any of her children. One has been adopted out by a family member and another is in the process of getting adopted out, the other is in custody of a family member.TKRN TKRN Tobacco use during , antepartum 017 12/27/2016 Overview: 10/13/2016 Pt smokes 2-3 cigarettes a day, down from 1/2 pack a day. Discussed risks of smoking during . Advised pt to quit. TKRN History of seizures 10/13/2016 01/25/2017 Overview: 10/13/2016 She states she has been diagnosed with pseudoseizures by doctor at the [facility]. She has been off Keppra since 10/2015. She states her last seizure was 09/2016. TKRN H/O pre-eclampsia in prior p regnancy, currently , unspecified trimester 10/13/2016 12/27/2016 Family history of defects 10/13/2016 01/25/2017 Overview: 10/13/2016Patient's brother born with Down Syndrome. FOB's sister born with microcephaly. . FOB born with hole in heart.TKRN Family history of genetic disease 10/13/2016 01/25/2017 Overview: 10/13/2016FOB has 2 daughters with M.D Short interval between pregn ancies affecting , antepartum 10/13/2016 12/27/2016 Previous delivery, antepartum 10/23/2015 12/27/2016 , high-risk 10/23/2015 12/27/2016 Seizures 10/22/2015 12/27/2016 Surgical menopause on hormone replacement therap y 02/21/2019 Surgical menopause 06/03/2019 Tobacco use 11/22/2021 documented as of this encounter (statuses as of 02/17/2022) [facility]03-23-2017 History of Past illness Narrative* Problem Noted Date Diagnosed Date Resolved Date 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 Iman Akhtar MD 10/13/2016Pt states she is . One child at age 1 from pneumonia. She had several 2nd trimester losses. The FOB is the father of 7 of her pregnancies. He is here with her today. TKRN with care elsewhere, antepartum 10/13/2016 12/27/2016 Overview: 10/13/2016Patient is transferring care from Dr Varela in [place]. She states she had started care at [facility] and then transferred to [place] because she moved to the [place] area. She has been recently seen at in [place] by [facility] and hospitalized for PTL. Patient signed a release of records form to obtain her medical records from [facility], [facility] and Dr Varela.TKRN History of labor, current 10/13/2016 12/27/2016 Overview: Today 1.5 cm, States she was 3 cm last week October 13, 2016 given bmz on 10/01- admitted at [facility] for fever Iman Akhtar MD History of labor 10/13/201612/2016 Overview: 10/13/2016Shbarbi has been recently seen at in [place] by [facility] and hospitalized for PTL. She states she received steroid injections and continues Elizabeth injections in the home. TKRN UTI (urinary tract infection ) in , antepartum 10/13/2016 12/27/2016 Overview: 10/13/2016Ashley is currently finishing her Macrobid rx for a UTI. TKRN History of depression 10/13/2016 12/27/2016 Custody issue 10/13/2016 12/27/2016 Overview: 10/13/2016Ashley does not have custody of any of her children. One has been adopted out by a family member and another is in the process of getting adopted out, the other is in custody of a family member.TKRN TKRN Tobacco use during , antepartum 10/13/2016 12/27/2016 Overview: 10/13/2016 Pt smokes 2-3 cigarettes a day, down from 1/2 pack a day. Discussed risks of smoking during . Advised pt to quit. TKRN History of seizures 10/13/2016 01/26/20 17 Overview: 10/13/2016 She states she has been diagnosed with pseudoseizures by doctor at the [facility]. She has been off Keppra since 10/2015. She states her last seizure was 09/2016. TKRN H/O pre-eclampsia in prior p regnancy, currently , unspecified trimester 10/13/2016 12/27/2016 Family history of defects 10/13/2016 01/25/2017 Overview: 10/13/2016Patient's brother born with Down Syndrome. FOB's sister born with microcephaly. . FOB born with hole in heart.TKRN Family history of genetic disease 10/13/2016 01/25/2017 Overview: 10/13/2016FOB has 2 daughters with M.D Short interval between pregn ancies affecting , antepartum 10/13/2016 12/27/2016 Previous delivery, antepartum 10/23/2015 12/27/2016 , high-risk 10/23/2015 017 Seizures 10/22/2015 12/27/2016 Surgical menopause on hormon e replacement therapy 02/21/2019 Surgical menopause 9 Tobacco use 11/22/2021 documented as of this encounter (statuses as of 04/29/2023) [facility]03-23-2017 History of Past illness Narrative* Problem Noted Date Diagnosed Date Resolved Date 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 Iman Akhtar MD 10/13/2016Pt states she is . One child at age 1 from pneumonia. She had several 2nd trimester losses. The FOB is the father of 7 of her pregnancies. He is here with her today. TKRN with care elsewhere, antepartum 10/13/2016 12/27/2016 Overview: 10/13/2016Patient is transferring care from Dr Varela in [place]. She states she had started care at [facility] and then transferred to [place] because she moved to the [place] area. She has been recently seen at in [place] by [facility] and hospitalized for PTL. Patient signed a release of records form to obtain her medical records from [facility], [facility] and Dr Varela.TKRN History of labor, current 10/13/2016 12/27/2016 Overview: Today 1.5 cm, States she was 3 cm last week October 13, 2016 given bmz on 10/01- admitted at [facility] for fever Iman Akhtar MD History of labor 10/13/201612/2016 Overview: 10/13/2016She has been recently seen at in [place] by [facility] and hospitalized for PTL. She states she received steroid injections and continues Elizabeth injections in the home. TKRN UTI (urinary tract infection ) in , antepartum 10/13/2016 12/27/2016 Overview: 10/13/2016Shbarbi is currently finishing her Macrobid rx for a UTI. TKRN History of depression 10/13/2016 12/27/2016 Custody issue 10/13/2016 12/27/2016 Overview: 10/13/2016She does not have custody of any of her children. One has been adopted out by a family member and another is in the process of getting adopted out, the other is in custody of a family member.TKRN TKRN Tobacco use during , antepartum 10/13/2016 12/27/2016 Overview: 10/13/2016 Pt smokes 2-3 cigarettes a day, down from 1/2 pack a day. Discussed risks of smoking during . Advised pt to quit. TKRN History of seizures 10/13/2016 01/26/20 17 Overview: 10/13/2016 She states she has been diagnosed with pseudoseizures by doctor at the [facility]. She has been off Keppra since 10/2015. She states her last seizure was 09/2016. TKRN H/O pre-eclampsia in prior p regnancy, currently , unspecified trimester 10/13/2016 12/27/2016 Family history of defects 10/13/2016 01/25/2017 Overview: 10/13/2016Patient's brother born with Down Syndrome. FOB's sister born with microcephaly. . FOB born with hole in heart.TKRN Family history of genetic disease 10/13/2016 01/25/2017 Overview: 10/13/2016FOB has 2 daughters with M.D Short interval between pregn ancies affecting , antepartum 10/13/2016 12/27/2016 Previous delivery, antepartum 10/23/2015 12/27/2016 , high-risk 10/23/2015 017 Seizures 10/22/2015 12/27/2016 Surgical menopause on hormon e replacement therapy 02/21/2019 Surgical menopause 9 Tobacco use 11/22/2021 documented as of this encounter (statuses as of 06/20/2023) [facility]03-[facility]-2017 History of Past illness Narrative* Problem Noted Date Diagnosed Date Resolved Date 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 Iman Akhtar MD 10/13/2016Pt states she is . One child at age 1 from pneumonia. She had several 2nd trimester losses. The FOB is the father of 7 of her pregnancies. He is here with her today. TKRN with care elsewhere, antepartum 10/13/2016 12/27/2016 Overview: 10/13/2016Patient is transferring care from Dr Varela in [place]. She states she had started care at [facility] and then transferred to [place] because she moved to the [place] area. She has been recently seen at in [place] by [facility] and hospitalized for PTL. Patient signed a release of records form to obtain her medical records from [facility], [facility] and Dr Varela.TKRN History of labor, current 10/13/2016 12/27/2016 Overview: Today 1.5 cm, States she was 3 cm last week October 13, 2016 given bmz on 10/01- admitted at [facility] for fever Iman Akhtar MD History of labor 10/13/201612/2016 Overview: 10/13/2016Shbarbi has been recently seen at in [place] by [facility] and hospitalized for PTL. She states she received steroid injections and continues Elizabeth injections in the home. TKRN UTI (urinary tract infection ) in , antepartum 10/13/2016 12/27/2016 Overview: 10/13/2016Shbarbi is currently finishing her Macrobid rx for a UTI. TKRN History of depression 10/13/2016 12/27/2016 Custody issue 10/13/2016 12/27/2016 Overview: 10/13/2016Shbarbi does not have custody of any of her children. One has been adopted out by a family member and another is in the process of getting adopted out, the other is in custody of a family member.TKRN TKRN Tobacco use during , antepartum 10/13/2016 12/27/2016 Overview: 10/13/2016 Pt smokes 2-3 cigarettes a day, down from 1/2 pack a day. Discussed risks of smoking during . Advised pt to quit. TKRN History of seizures 10/13/2016 01/26/20 17 Overview: 10/13/2016 She states she has been diagnosed with pseudoseizures by doctor at the [facility]. She has been off Keppra since 10/2015. She states her last seizure was 09/2016. TKRN H/O pre-eclampsia in prior p regnancy, currently , unspecified trimester 10/13/2016 12/27/2016 Family history of defects 10/13/2016 01/25/2017 Overview: 10/13/2016Patient's brother born with Down Syndrome. FOB's sister born with microcephaly. . FOB born with hole in heart.TKRN Family history of genetic disease 10/13/2016 01/25/2017 Overview: 10/13/2016FOB has 2 daughters with M.D Short interval between pregn ancies affecting , antepartum 10/13/2016 12/27/2016 Previous delivery, antepartum 10/23/2015 12/27/2016 , high-risk 10/23/2015 017 Seizures 10/22/2015 12/27/2016 Surgical menopause on hormon e replacement therapy 02/21/2019 Surgical menopause 9 Tobacco use 11/22/2021 documented as of this encounter (statuses as of 06/23/2023) [facility]03-[facility]2017 History of Past illness Narrative* Problem Noted Date Diagnosed Date Resolved Date 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 Iman Akhtar MD 10/13/2016Pt states she is . One child at age 1 from pneumonia. She had several 2nd trimester losses. The FOB is the father of 7 of her pregnancies. He is here with her today. TKRN with care elsewhere, antepartum 10/13/2016 12/27/2016 Overview: 10/13/2016Patient is transferring care from Dr Varela in [place]. She states she had started care at [facility] and then transferred to [place] because she moved to the [place] area. She has been recently seen at in [place] by [facility] and hospitalized for PTL. Patient signed a release of records form to obtain her medical records from [facility], [place] [facility] and Dr Varela.TKRN History of labor, current 10/13/2016 12/27/2016 Overview: Today 1.5 cm, States she was 3 cm last week October 13, 2016 given bmz on admitted at [facility] for fever Iman Akhtar MD History of labor 10/13/201612/2016 Overview: 10/13/2016Ashley has been recently seen at in [place] by [facility] and hospitalized for PTL. She states she received steroid injections and continues Elizabeth injections in the home. TKRN UTI (urinary tract infection ) in , antepartum 10/13/2016 12/27/2016 Overview: 10/13/2016Ashley is currently finishing her Macrobid rx for a UTI. TKRN History of depression 10/13/2016 12/27/2016 Custody issue 10/13/2016 12/27/2016 Overview: 10/13/2016Ashley does not have custody of any of her children. One has been adopted out by a family member and another is in the process of getting adopted out, the other is in custody of a family member.TKRN TKRN Tobacco use during , antepartum 10/13/2016 12/27/2016 Overview: 10/13/2016 Pt smokes 2-3 cigarettes a day, down from 1/2 pack a day. Discussed risks of smoking during . Advised pt to quit. TKRN History of seizures 10/13/2016 01/26/20 17 Overview: 10/13/2016 She states she has been diagnosed with pseudoseizures by doctor at the [facility]. She has been off Keppra since 10/2015. She states her last seizure was 09/2016. TKRN H/O pre-eclampsia in prior p regnancy, currently , unspecified trimester 10/13/2016 12/27/2016 Family history of defects 10/13/2016 01/25/2017 Overview: 10/13/2016Patient's brother born with Down Syndrome. FOB's sister born with microcephaly. . FOB born with hole in heart.TKRN Family history of genetic disease 10/13/2016 01/25/2017 Overview: 10/13/2016FOB has 2 daughters with M.D Short interval between pregn ancies affecting , antepartum 10/13/2016 12/27/2016 Previous delivery, antepartum 10/23/2015 12/27/2016 , high-risk 10/23/2015 017 Seizures 10/22/2015 12/27/2016 Surgical menopause on hormon e replacement therapy 02/21/2019 Surgical menopause 9 Tobacco use 11/22/2021 documented as of this encounter (statuses as of 06/27/2023) [facility]2017 History of Past illness Narrative* Problem Noted Date Diagnosed Date Resolved Date 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 Iman Akhtar MD 10/13/2016Pt states she is . One child at age 1 from pneumonia. She had several 2nd trimester losses. The FOB is the father of 7 of her pregnancies. He is here with her today. TKRN with care elsewhere, antepartum 10/13/2016 12/27/2016 Overview: 10/13/2016Patient is transferring care from Dr Varela in [place]. She states she had started care at [facility] and then transferred to [place] because she moved to the [place] area. She has been recently seen at in [place] by [facility] and hospitalized for PTL. Patient signed a release of records form to obtain her medical records from [facility], [facility] and Dr Varela.TKRN History of labor, current 10/13/2016 12/27/2016 Overview: Today 1.5 cm, States she was 3 cm last week October 13, 2016 given bmz on admitted at [facility] for fever Iman Akhtar MD History of labor 10/13/201612/2016 Overview: 10/13/2016Ashley has been recently seen at in [place] by [facility] and hospitalized for PTL. She states she received steroid injections and continues Elizabeth injections in the home. TKRN UTI (urinary tract infection ) in , antepartum 10/13/2016 12/27/2016 Overview: 10/13/2016Ashley is currently finishing her Macrobid rx for a UTI. TKRN History of depression 10/13/2016 12/27/2016 Custody issue 10/13/2016 12/27/2016 Overview: 10/13/2016Ashley does not have custody of any of her children. One has been adopted out by a family member and another is in the process of getting adopted out, the other is in custody of a family member.TKRN TKRN Tobacco use during , antepartum 10/13/2016 12/27/2016 Overview: 10/13/2016 Pt smokes 2-3 cigarettes a day, down from 1/2 pack a day. Discussed risks of smoking during . Advised pt to quit. TKRN History of seizures 10/13/2016 01/26/20 17 Overview: 10/13/2016 She states she has been diagnosed with pseudoseizures by doctor at the [facility]. She has been off Keppra since 10/2015. She states her last seizure was 09/2016. TKRN H/O pre-eclampsia in prior p regnancy, currently , unspecified trimester 10/13/2016 12/27/2016 Family history of defects 10/13/2016 01/25/2017 Overview: 10/13/2016Patient's brother born with Down Syndrome. FOB's sister born with microcephaly. . FOB born with hole in heart.TKRN Family history of genetic disease 10/13/2016 01/25/2017 Overview: 10/13/2016FOB has 2 daughters with M.D Short interval between pregn ancies affecting , antepartum 10/13/2016 12/27/2016 Previous delivery, antepartum 10/23/2015 12/27/2016 , high-risk 10/23/2015 017 Seizures 10/22/2015 12/27/2016 Surgical menopause on hormon e replacement therapy 02/21/2019 Surgical menopause 9 Tobacco use 11/22/2021 documented as of this encounter (statuses as of 06/28/2023) [facility]2017 History of Past illness Narrative* Problem Noted Date Diagnosed Date Resolved Date 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 Iman Akhtar MD 10/13/2016Pt states she is . One child at age 1 from pneumonia. She had several 2nd trimester losses. The FOB is the father of 7 of her pregnancies. He is here with her today. TKRN with care elsewhere, antepartum 10/13/2016 12/27/2016 Overview: 10/13/2016Patient is transferring care from Dr Varela in [place]. She states she had started care at [facility] and then transferred to [place] because she moved to the [place] area. She has been recently seen at in [place] by [facility] and hospitalized for PTL. Patient signed a release of records form to obtain her medical records from [facility], [facility] and Dr Varela.TKRN History of labor, current 10/13/2016 12/27/2016 Overview: Today 1.5 cm, States she was 3 cm last week October 13, 2016 given bmz on admitted at [facility] for fever Iman Akhtar MD History of labor 10/13/201612/2016 Overview: 10/13/2016Ashely has been recently seen at in [place] by [facility] and hospitalized for PTL. She states she received steroid injections and continues [place] injections in the home. TKRN UTI (urinary tract infection ) in , antepartum 10/13/2016 12/27/2016 Overview: 10/13/2016Ashley is currently finishing her Macrobid rx for a UTI. TKRN History of depression 10/13/2016 12/27/2016 Custody issue 10/13/2016 12/27/2016 Overview: 10/13/2016Ashley does not have custody of any of her children. One has been adopted out by a family member and another is in the process of getting adopted out, the other is in custody of a family member.TKRN TKRN Tobacco use during , antepartum 10/13/2016 12/27/2016 Overview: 10/13/2016 Pt smokes 2-3 cigarettes a day, down from 1/2 pack a day. Discussed risks of smoking during . Advised pt to quit. TKRN History of seizures 10/13/2016 01/26/20 17 Overview: 10/13/2016 She states she has been diagnosed with pseudoseizures by doctor at the [facility]. She has been off Keppra since 10/2015. She states her last seizure was 09/2016. TKRN H/O pre-eclampsia in prior p regnancy, currently , unspecified trimester 10/13/2016 12/27/2016 Family history of defects 10/13/2016 01/25/2017 Overview: 10/13/2016Patient's brother born with Down Syndrome. FOB's sister born with microcephaly. . FOB born with hole in heart.TKRN Family history of genetic disease 10/13/2016 01/25/2017 Overview: 10/13/2016FOB has 2 daughters with M.D Short interval between pregn ancies affecting , antepartum 10/13/2016 12/27/2016 Previous delivery, antepartum 10/23/2015 12/27/2016 , high-risk 10/23/2015 017 Seizures 10/22/2015 12/27/2016 Surgical menopause on hormon e replacement therapy 02/21/2019 Surgical menopause 9 Tobacco use 11/22/2021 documented as of this encounter (statuses as of 08/30/2023) [facility] History of Past illness Narrative* Problem Noted Date Diagnosed Date Resolved Date 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 Iman Akhtar MD 10/13/2016Pt states she is . One child at age 1 from pneumonia. She had several 2nd trimester losses. The FOB is the father of 7 of her pregnancies. He is here with her today. TKRN with care elsewhere, antepartum 10/13/2016 12/27/2016 Overview: 10/13/2016Patient is transferring care from Dr Varela in [place]. She states she had started care at [facility] and then transferred to [place] because she moved to the [place] area. She has been recently seen at in [place] by [facility] and hospitalized for PTL. Patient signed a release of records form to obtain her medical records from [facility], [facility] and Dr Varela.TKRN History of labor, current 10/13/2016 12/27/2016 Overview: Today 1.5 cm, States she was 3 cm last week October 13, 2016 given bmz on 3/11-12 admitted at [facility] for fever Iman Akhtar MD History of labor 10/13/201612/2016 Overview: 10/13/2016Ashley has been recently seen at in [place] by [facility] and hospitalized for PTL. She states she received steroid injections and continues [place] injections in the home. TKRN UTI (urinary tract infection ) in , antepartum 10/13/2016 12/27/2016 Overview: 10/13/2016Ashley is currently finishing her Macrobid rx for a UTI. TKRN History of depression 10/13/2016 12/27/2016 Custody issue 10/13/2016 12/27/2016 Overview: 10/13/2016Ashley does not have custody of any of her children. One has been adopted out by a family member and another is in the process of getting adopted out, the other is in custody of a family member.TKRN TKRN Tobacco use during , antepartum 10/13/2016 12/27/2016 Overview: 10/13/2016 Pt smokes 2-3 cigarettes a day, down from 1/2 pack a day. Discussed risks of smoking during . Advised pt to quit. TKRN History of seizures 10/13/2016 01/26/20 17 Overview: 10/13/2016 She states she has been diagnosed with pseudoseizures by doctor at the [facility]. She has been off Keppra since 10/2015. She states her last seizure was 09/2016. TKRN H/O pre-eclampsia in prior p regnancy, currently , unspecified trimester 10/13/2016 12/27/2016 Family history of defects 10/13/2016 01/25/2017 Overview: 10/13/2016Patient's brother born with Down Syndrome. FOB's sister born with microcephaly. . FOB born with hole in heart.TKRN Family history of genetic disease 10/13/2016 01/25/2017 Overview: 10/13/2016FOB has 2 daughters with M.D Short interval between pregn ancies affecting , antepartum 10/13/2016 12/27/2016 Previous delivery, antepartum 10/23/2015 12/27/2016 , high-risk 10/23/2015 017 Seizures 10/22/2015 12/27/2016 Surgical menopause on hormon e replacement therapy 02/21/2019 Surgical menopause 9 Tobacco use 11/22/2021 documented as of this encounter (statuses as of 08/31/2023) [facility] History of Past illness Narrative* Problem Noted Date Diagnosed Date Resolved Date 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 Iman Akhtar MD 10/13/2016Pt states she is . One child at age 1 from pneumonia. She had several 2nd trimester losses. The FOB is the father of 7 of her pregnancies. He is here with her today. TKRN with care elsewhere, antepartum 10/13/2016 12/27/2016 Overview: 10/13/2016Patient is transferring care from Dr Varela in [place]. She states she had started care at [facility] and then transferred to [place] because she moved to the [place] area. She has been recently seen at in [place] by [facility] and hospitalized for PTL. Patient signed a release of records form to obtain her medical records from [facility], [facility] and Dr Varela.TKRN History of labor, current 10/13/2016 12/27/2016 Overview: Today 1.5 cm, States she was 3 cm last week October 13, 2016 given bmz on admitted at [facility] for fever Iman Akhtar MD History of labor 10/13/201612/2016 Overview: 10/13/2016She has been recently seen at in [place] by [facility] and hospitalized for PTL. She states she received steroid injections and continues [place] injections in the home. TKRN UTI (urinary tract infection ) in , antepartum 10/13/2016 12/27/2016 Overview: 10/13/2016Ashley is currently finishing her Macrobid rx for a UTI. TKRN History of depression 10/13/2016 12/27/2016 Custody issue 10/13/2016 12/27/2016 Overview: 10/13/2016Ashley does not have custody of any of her children. One has been adopted out by a family member and another is in the process of getting adopted out, the other is in custody of a family member.TKRN TKRN Tobacco use during , antepartum 10/13/2016 12/27/2016 Overview: 10/13/2016 Pt smokes 2-3 cigarettes a day, down from 1/2 pack a day. Discussed risks of smoking during . Advised pt to quit. TKRN History of seizures 10/13/2016 01/26/20 17 Overview: 10/13/2016 She states she has been diagnosed with pseudoseizures by doctor at the [facility]. She has been off Keppra since 10/2015. She states her last seizure was 09/2016. TKRN H/O pre-eclampsia in prior p regnancy, currently , unspecified trimester 10/13/2016 12/27/2016 Family history of defects 10/13/2016 01/25/2017 Overview: 10/13/2016Patient's brother born with Down Syndrome. FOB's sister born with microcephaly. . FOB born with hole in heart.TKRN Family history of genetic disease 10/13/2016 01/25/2017 Overview: 10/13/2016FOB has 2 daughters with M.D Short interval between pregn ancies affecting , antepartum 10/13/2016 12/27/2016 Previous delivery, antepartum 10/23/2015 12/27/2016 , high-risk 10/23/2015 017 Seizures 10/22/2015 12/27/2016 Surgical menopause on hormon e replacement therapy 02/21/2019 Surgical menopause 9 Tobacco use 11/22/2021 documented as of this encounter (statuses as of 09/05/2023) [facility]03-23-2017 History of Past illness Narrative* Problem Noted Date Diagnosed Date Resolved Date 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 Iman Akhtar MD 10/13/2016Pt states she is . One child at age 1 from pneumonia. She had several 2nd trimester losses. The FOB is the father of 7 of her pregnancies. He is here with her today. TKRN with care elsewhere, antepartum 10/13/2016 12/27/2016 Overview: 10/13/2016Patient is transferring care from Dr Varela in [place]. She states she had started care at [facility] and then transferred to [place] because she moved to the [place] area. She has been recently seen at in [place] by [facility] and hospitalized for PTL. Patient signed a release of records form to obtain her medical records from [facility], [facility] and Dr Varela.TKRN History of labor, current 10/13/2016 12/27/2016 Overview: Today 1.5 cm, States she was 3 cm last week October 13, 2016 given bmz on 10/01- admitted at [facility] for fever Iman Akhtar MD History of labor 10/13/201612/2016 Overview: 10/13/2016She has been recently seen at in [place] by [facility] and hospitalized for PTL. She states she received steroid injections and continues [place] injections in the home. TKRN UTI (urinary tract infection ) in , antepartum 10/13/2016 12/27/2016 Overview: 10/13/2016Shbrabi is currently finishing her Macrobid rx for a UTI. TKRN History of depression 10/13/2016 12/27/2016 Custody issue 10/13/2016 12/27/2016 Overview: 10/13/2016Shbarbi does not have custody of any of her children. One has been adopted out by a family member and another is in the process of getting adopted out, the other is in custody of a family member.TKRN TKRN Tobacco use during , antepartum 10/13/2016 12/27/2016 Overview: 10/13/2016 Pt smokes 2-3 cigarettes a day, down from 1/2 pack a day. Discussed risks of smoking during . Advised pt to quit. TKRN History of seizures 10/13/2016 01/26/20 17 Overview: 10/13/2016 She states she has been diagnosed with pseudoseizures by doctor at the [facility]. She has been off Keppra since 10/2015. She states her last seizure was 09/2016. TKRN H/O pre-eclampsia in prior p regnancy, currently , unspecified trimester 10/13/2016 12/27/2016 Family history of defects 10/13/2016 01/25/2017 Overview: 10/13/2016Patient's brother born with Down Syndrome. FOB's sister born with microcephaly. . FOB born with hole in heart.TKRN Family history of genetic disease 10/13/2016 01/25/2017 Overview: 10/13/2016FOB has 2 daughters with M.D Short interval between pregn ancies affecting , antepartum 10/13/2016 12/27/2016 Previous delivery, antepartum 10/23/2015 12/27/2016 , high-risk 10/23/2015 017 Seizures 10/22/2015 12/27/2016 Surgical menopause on hormon e replacement therapy 02/21/2019 Surgical menopause 9 Tobacco use 11/22/2021 documented as of this encounter (statuses as of 09/05/2023) [facility] department Discharge summary* Flory Titus RN: PERFORM Event Display: Depart Summary ED Authored Date: [id number] Discharge Instructions Thank you for allowing [facility] to assist you with your healthcare needs. The following is importantdischarge information regarding your hospital visit. Diagnosis from Today's Visit Muscle spasm Muscle spasm Neck ache/stiffness/spasm Neck pain What to Do Next Instructions from Your Care Team No qualifying data available. Post Acute Orders No qualifying data available. You Need to Schedule the Following Appointments Follow Up with LEXA RODRIGUEZ MD When Within 2-4 days Where: [address] [place] [id number]- Allergies Brethine Keflex Latex Procardia (hypotension) amoxicillin codeine (Amoxicillin 08-MAR-2005 05:15:52<!>) penicillin progesterone sulfa drug Medications Please ask your primary doctor or pharmacist before taking any other medication not listed, including over the counter drugs, herbal medications, vitamins and or supplements as they may interact withyour home medications. What How Much When Why Instructions Last Dose New acetaminophen-oxyCODONE (Percocet 5 mg-325 mg oral tablet) 1 tab(s) by mouth Every 6 hours as needed for Pain Neck pain Duration: 3 Days Printed Prescription New diazePAM (Valium 2 mg oral tablet) 1 tab(s) by mouth Every 8 hours Muscle spasm Duration: 3 Days Printed Prescription New methylPREDNISolone (Medrol Dosepak 4 mg oral tablet) 1 Packet(s) by mouth Once a day Duration: 6 Days as directed on package labeling Printed Prescription Unchanged metoprolol (metoprolol tartrate 25 mg oral tablet) 0.5 tab(s) by mouth Two (2) times a day as needed for palpitations Please take this list to your next doctor s visit. Bring all medications you take, including over the counter medications, herbals and other supplements with you to your doctor s visit. Patients and families are reminded to discard old lists and to update any records with all medication providers or retail pharmacies. Education Materials Neck Pain There are several possible causes of neck pain when there is no injury: You can get a minor ligament sprain or muscle strain from a sudden minor neck movement. Sleeping with your neck in an awkward position can also cause this. Some people respond to emotional stress by tensing the muscles of their neck, shoulders, and upper back. Chronic spasm in these muscles can cause neck pain and sometimes headaches. Gradual wear and tear of the joints in the spine can cause degenerative arthritis. This can be a source of occasional or chronic neck pain. The spinal disks may bulge and put pressure on a nearby spinal nerve. This can happen as a natural result of aging or repeated small injuries to the neck. The spinal disks are the cushions between each spinal bone. This causes tingling, pain, or numbness that spreads from the neck to the shoulder, arm, or hand on one side. Acute neck pain usually gets better in 1 to 2 weeks. Neck pain related to disk disease, arthritis in the spinal joints, or spinal stenosis can become chronic and last for months or years. Spinal stenosis is narrowing of the spinal canal. X-rays are usually not ordered for the initial evaluation of neck pain. However, X-rays may be doneif you had a forceful physical injury, such as a car accident or fall. If pain continues and doesn t respond to medical treatment, X-rays and other tests may be done at a later time. Home care Rest and relax the muscles. Use a comfortable pillow that supports the head. It should also help keep the spine in a neutral position. The position of the head should not be tilted forward or backward. A rolled up towel may help for a custom fit. Some people find relief with heat. Heat can be applied with either a warm shower or bath or a moisttowel heated in the microwave and massage. Others prefer cold packs. You can make an ice pack by filling a plastic bag that seals at the top with ice cubes or crushed ice and then wrapping it with a thin towel. Try both and use the method that feels best for 15 to 20 minutes, several times a day. Whether using ice or heat, be careful that you do not injure your skin. Never put ice directly on the skin. Always wrap the ice in a towel or other type of cloth.This is very important, especially inpeople with poor skin sensations. Try to reduce your stress level. Emotional stress can lead to neck muscle tension and get in the way of or delay the healing process. You may use hisv-irh-brhcrvx pain medicine to control pain, unless another medicine was prescribed.If you have chronic liver or kidney disease or ever had a stomach ulcer or GI bleeding, talk with your healthcare provider before using these medicines. Follow-up care Follow up with your healthcare provider if your symptoms do not show signs of improvement after oneweek. Physical therapy or further tests may be needed. If X-rays, CT scans, or MRI scans were taken, you will be told of any new findings that may affect your care. Call 911 Call 911 if you have: Sudden weakness or numbness in one or both arms Neck swelling, difficulty or painful swallowing Difficulty breathing Chest pain When to seek medical advice Call your healthcare provider right away if any of these occur: Pain becomes worse or spreads into one or both arm Increasing headache Fever of 100.4 F (38 C) or higher, or as directed by your healthcare provider [phone] The [facility]. [address] [place] [address]. All rights reserved. This information is not intended as a substitute for professional medical care. Always follow yourhealthcare professional's instructions. Additional Information VACCINATE! IT SAVES LIVES! Members of the community who have not yet received the COVID-19 vaccine and would like to receive it can visit one of [facility] vaccine clinics. There are many vaccine clinic locations within the [facility]. For locations and available times, please visit www.[email or web address].[place].gov/. It is important to note that some COVID mobile vaccine clinics are held outdoors and may be canceled in rainy or stormy conditions. To learn more about pediatric vaccinations (ages 5-11), we invite you to visit the [facility] webpage. [email or web address]/[email or web address] [email or web address] learn more about the COVID-19 vaccine, we invite you to visit the CDC website for a list of frequently asked questions. https://www.cdc.gov/coronavirus/2019-ncov/vaccines/faq.html [facility] Patient Portal Access Instructions: Stay connected with your healthcare team and access your personal medical information anytime with the [facility] Patient Portal. If you would like a full copy of your medical records please contact the [facility] Medical Records Department Monday through Monday between 8a.m. and 4:30p.m. Please follow the directions below to access the portal: 1.Access the email account you provided upon registration to the [facility].2.Look for an invitation email from [facility].3.Open the email and access the invitation link: Accept Invitation to [facility]4.Fill in the required webb to create your account. Sign into [email or web address] with your username and password that you created in the above steps to stay up to date. You can then view a summary of results, a summary of your visits, and the ability to download your summaries to your computer or send the information securely to a physician. Remember that your healthcare information is confidential, so carefully consider who you will allow to register on the [facility] Patient Portal for access to your information. You can also access the [facility] Patient Portal on the Frontier[employer]. Simply click on Health Records under [employer] and then click on the [facility] logo. HOW TO SAFELY DISPOSE OF PRESCRIPTION MEDICATIONS Please use one of the following methods to safely dispose of your unused medications. 1.Use a drug disposal kit: the drug disposal pouch allows you to safely discard your old and unuseddrugs. Ask your nurse to give you one when you are discharged.2.Visit a local take-back location: Many local pharmacies and police departments have programs that collect old and unwanted prescriptiondrugs. Call your local pharmacy or go to http://AppArchitect.SoundHound/3A7Ns8u to find one close to you.3.Make use of household items: Use cat litter or old coffee grounds to dispose medications if other options arenot available. Mix your drugs with these household products, seal them in an airtight container andthrow it into the garbage. Call [facility]: [phone] to be sure your drugs can be disposed of in this way. Some medicines may require a different approach.4.Never flush your medications down the toilet. IF YOU HAVE BEEN PRESCRIBED AN OPIOIDS FOR PAIN If you have been prescribed an opioid (such as hydrocodone, oxycodone or morphine), it is critical to understand the possible side effects and risks of opioid pain medications. Even when taken as directed, opioids can have several side effects including: Tolerance, meaning you might need to take more of a medication for the same pain relief. Nausea, vomiting and/or constipation. Sleepiness, dizziness, dry mouth, confusion, depression or itching. Physical dependence, meaning you have withdrawal symptoms when a medication is stopped ? this can develop within a few days. KNOW YOUR RESPONSIBILITIES It is important to know exactly how much and how often to take the opioid pain medications you are prescribed. Never take opioids in higher amounts or more often than prescribed. Do not combine opioids with alcohol or other drugs that cause drowsiness, such as benzodiazepines, also known as benzos,including diazepam and alprazolam, muscle relaxants or sleep aids. Never sell or share prescriptionopioids. This is illegal. Store opioids in a secure place and out of reach of others (including children, family, friends and visitors). The last page(s) of this document has been signed and retained as a CHART COPY Signatures Patient Education Materials Neck Pain Medication Leaflets My discharge plan and instructions have been reviewed and explained to me and I,FERNANDO GUIDO understand my current condition and have read and understand these discharge instructions. I have received a written copy of the plan/instructions. If I have questions, I am aware that I should contact my doctor. Patient/Data Entry Analyst Signature: Date/Time: Relationship to Patient: Witness Name/Signature: Date/Time: [facility] Discharge summary* Teodora Hoff RN: PERFORM Event Display: Depart Summary ED Authored Date: Discharge Instructions Thank you for allowing [facility] to assist you with your healthcare needs. The following is importantdischarge information regarding your hospital visit. Diagnosis from Today's Visit Edema of lower leg Lower leg pain-swelling What to Do Next Instructions from Your Care Team Discharge ED Outpatient Vascular Lab - Ordered -- Test Requested: Bilateral LE Doppler US for DVT, Lower extremity, Bilateral, Test Reason: Swelling, Mon-Fri 6am-6:30pm: Call [phone] to schedule a same day appointment for testing or report to the Vascular Lab at 6:00 AM. Please be aware that the... Post Acute Orders No qualifying data available. You Need to Schedule the Following Appointments Follow Up with LEXA RODRIGUEZ MD When Within 2-4 days Why: Return to ED if symptoms worsen Where: [address] [place] [address]- Allergies Brethine Keflex Latex Procardia (hypotension) amoxicillin codeine (Amoxicillin 08-MAR-2005 05:15:52<!>) penicillin progesterone sulfa drug Medications Please ask your primary doctor or pharmacist before taking any other medication not listed, including over the counter drugs, herbal medications, vitamins and or supplements as they may interact withyour home medications. What How Much When Instructions Last Dose Unchanged metoprolol (metoprolol tartrate 25 mg oral tablet) 0.5 tab(s) by mouth Two (2) times a day as needed for palpitations Please take this list to your next doctor s visit. Bring all medications you take, including over the counter medications, herbals and other supplements with you to your doctor s visit. Patients and families are reminded to discard old lists and to update any records with all medication providers or retail pharmacies. Education Materials Leg Swelling in Both Legs Swelling of the feet, ankles, and legs is called edema. It is caused by excess fluid that has collected in the tissues. Extra fluid in the body settles in the lowest part because of gravity. This is why the legs and feet are most affected. Some of the causes for edema include: Disease of the heart like congestive heart failure Standing or sitting for long periods of time Infection of the feet or legs Blood pooling in the veins of your legs (venous insufficiency) Dilated veins in your lower leg (varicose veins) Garters or other clothing that is tight on your legs. This will cause blood to pool in your legs because the clothing limits blood flow. Some medicines such as hormones like control pills, some blood pressure medicines like calcium channel blockers (amlodipine) and steroids, some antidepressants like MAO inhibitors and tricyclics Menstrual periods that cause you to retain fluids Many types of renal disease Liver failure or cirrhosis , some swelling is normal, but a sudden increase in leg swelling or weight gain can be a sign of a dangerous complication of Poor nutrition Thyroid disease Medical treatment will depend on what is causing the swelling in your legs. Your healthcare provider may prescribe water pills (diuretics) to get rid of the extra fluid. Home care Follow these guidelines when caring for yourself at home: Don't wear clothing like garters that is tight on your legs. Keep your legs up while lying or sitting. If infection, injury, or recent surgery is causing the swelling, stay off your legs as much as possible until symptoms get better. If your healthcare provider says that your leg swelling is caused by venous insufficiency or varicose veins, don't sit or secondary school principal one place for long periods of time. Take breaks and walk about everyfew hours. Brisk walking is a good exercise. It helps circulate the blood that has collected in your leg. Talk with your provider about using support stockings to stop daytime leg swelling. If your provider says that heart disease is causing your leg swelling, follow a low-salt diet to stop extra fluid from staying in your body. You may also need medicine. Follow-up care Follow up with your healthcare provider, or as advised. When to seek medical advice Call your healthcare provider right away if any of these occur: New shortness of breath or chest pain Shortness of breath or chest pain that gets worse Swelling in both legs or ankles that gets worse Swelling of the abdomen Redness, warmth, or swelling in one leg Fever of 100.4 F (38 C) or higher, or as directed by your healthcare provider Yellow color to your skin or eyes Rapid, unexplained weight gain Having to sleep upright or use an increased number of pillows [id number] The [facility]. [address] [place] [address], [place] [address]. All rights reserved. This information is not intended as a substitute for professional medical care. Always follow yourhealthcare professional's instructions. Additional Information VACCINATE! IT SAVES LIVES! Members of the community who have not yet received the COVID-19 vaccine and would like to receive it can visit one of [facility] vaccine clinics. There are many vaccine clinic locations within the [facility]. For locations and available times, please visit www.gettheshot.coronavirus.[place].gov/. It is important to note that some COVID mobile vaccine clinics are held outdoors and may be canceled in rainy or stormy conditions. To learn more about pediatric vaccinations (ages 5-11), we invite you to visit the [facility] webpage. [email or web address] [email or web address] learn more about the COVID-19 vaccine, we invite you to visit the CDC website for a list of frequently asked questions. https://www.cdc.gov/coronavirus/2019-ncov/vaccines/faq.html [facility] Patient Portal Access Instructions: Stay connected with your healthcare team and access your personal medical information anytime with the [facility] Patient Portal. If you would like a full copy of your medical records please contact the [facility] Medical Records Department Monday through Monday between 8a.m. and 4:30p.m. Please follow the directions below to access the portal: 1.Access the email account you provided upon registration to the hospital.2.Look for an invitation email from [facility].3.Open the email and access the invitation link: Accept Invitation to [facility]4.Fill in the required webb to create your account. Sign into www.[email or web address] with your username and password that you created in the above steps to stay up to date. You can then view a summary of results, a summary of your visits, and the ability to download your summaries to your computer or send the information securely to a physician. Remember that your healthcare information is confidential, so carefully consider who you will allow to register on the [facility] Patient Portal for access to your information. You can also access the [facility] Patient Portal on the [employer] cruz. Simply click on Health Records under [employer] and then click on the [facility] logo. HOW TO SAFELY DISPOSE OF PRESCRIPTION MEDICATIONS Please use one of the following methods to safely dispose of your unused medications. 1.Use a drug disposal kit: the drug disposal pouch allows you to safely discard your old and unuseddrugs. Ask your nurse to give you one when you are discharged.2.Visit a local take-back location: Many local pharmacies and police departments have programs that collect old and unwanted prescriptiondrugs. Call your local pharmacy or go to http://AppArchitect.SoundHound/0S1Pv7w to find one close to you.3.Make use of household items: Use cat litter or old coffee grounds to dispose medications if other options arenot available. Mix your drugs with these household products, seal them in an airtight container andthrow it into the garbage. Call [facility]: [phone] to be sure your drugs can be disposed of in this way. Some medicines may require a different approach.4.Never flush your medications down the toilet. IF YOU HAVE BEEN PRESCRIBED AN OPIOIDS FOR PAIN If you have been prescribed an opioid (such as hydrocodone, oxycodone or morphine), it is critical to understand the possible side effects and risks of opioid pain medications. Even when taken as directed, opioids can have several side effects including: Tolerance, meaning you might need to take more of a medication for the same pain relief. Nausea, vomiting and/or constipation. Sleepiness, dizziness, dry mouth, confusion, depression or itching. Physical dependence, meaning you have withdrawal symptoms when a medication is stopped ? this can develop within a few days. KNOW YOUR RESPONSIBILITIES It is important to know exactly how much and how often to take the opioid pain medications you are prescribed. Never take opioids in higher amounts or more often than prescribed. Do not combine opioids with alcohol or other drugs that cause drowsiness, such as benzodiazepines, also known as benzos,including diazepam and alprazolam, muscle relaxants or sleep aids. Never sell or share prescriptionopioids. This is illegal. Store opioids in a secure place and out of reach of others (including children, family, friends and visitors). The last page(s) of this document has been signed and retained as a CHART COPY Signatures Patient Education Materials Leg Swelling in Both Legs Medication Leaflets My discharge plan and instructions have been reviewed and explained to me and ILATA ALYSSA G understand my current condition and have read and understand these discharge instructions. I have received a written copy of the plan/instructions. If I have questions, I am aware that I should contact my doctor. Patient/Data Entry Analyst Signature: Date/Time: Relationship to Patient: Witness Name/Signature: Date/Time: [facility] Evaluation + Plan note Future Appointments Appointment Date:06/29/2023 02:15:00 PM Scheduled Provider: Location:TIAN PHILLIPS Appointment Type:CV OV [facility] Evaluation + Plan note Future Appointments Appointment Date:06/05/2023 09:30:00 AM Scheduled Provider: Location:[facility] Appointment Type:US Breast Bilateral Complete Appointment Date:06/29/2023 02:15:00 PM Scheduled Provider: Location:[facility] Appointment Type:CV OV Future Scheduled Tests Radiology* US Breast Bilateral Complete 06/05/[address] [facility] evaluation note* Diagnosis Pseudoseizure- Primary Other convulsions documented in this encounter [facility] noteThere may be information available, but it has not been provided by the sender.[facility] Work Phone: Evaluation note* Diagnosis Stage 1 mild COPD by GOLD classification (HCC) documented in this encounter [facility] note* Diagnosis Stage 1 mild COPD by GOLD classification (HCC) documented in this encounter [facility] note* Diagnosis Headache disorder Headache Seizure disorder (HCC) Unspecified epilepsy without mention of intractable epilepsy documented in this encounter [facility] note* Diagnosis Intractable chronic migraine without aura and without status migrainosus- Primary Chronic migraine without aura, with intractable migraine, so stated, without mention of status migrainosus documented in this encounter [facility] note* Diagnosis Seizure-like activity (HCC) Other convulsions [facility] [place] [facility]* Diagnosis perimenopause s/p TH- Primary Symptomatic states associated with artificial menopause Hormone replacement therapy (HRT) Need for prophylactic hormone replacement therapy (postmenopausal) Bipolar 1 disorder (HCC) Bipolar I disorder, most recent episode (or current) unspecified Seizure (HCC) Other convulsions Nipple discharge Other sign and symptom in breast [facility] [place] [facility]* Diagnosis Intractable chronic migraine without aura and without status migrainosus- Primary Chronic migraine without aura, with intractable migraine, so stated, without mention of status migrainosus [facility] [place] [facility] Diagnosis Conversion disorder- Primary [facility] [place] [facility]* Diagnosis Intractable chronic migraine without aura and without status migrainosus- Primary Chronic migraine without aura, with intractable migraine, so stated, without mention of status migrainosus [facility] [place] [facility]* Diagnosis perimenopause s/p TH- Primary Symptomatic states associated with artificial menopause Family history of breast cancer Family history of malignant neoplasm of breast Bloody discharge from right nipple Other sign and symptom in breast Mastalgia Mastodynia Hormone replacement therapy (HRT) Need for prophylactic hormone replacement therapy (postmenopausal) [facility] [place] [facility]* Diagnosis Bipolar 1 disorder (HCC)- Primary Bipolar I disorder, most recent episode (or current) unspecified documented in this encounter [facility] note* Diagnosis Chronic pain syndrome- Primary documented in this encounter [facility] note* Diagnosis Other chronic pain- Primary Myofascial pain syndrome Mylagia and myositis, unspecified Fibromyalgia Mylagia and myositis, unspecified Chronic pain disorder Chronic pain syndrome Myofascial pain syndrome Mylagia and myositis, unspecified documented in this encounter [facility] course Narrative No data available for this section [facility] Hospital Discharge instructions* Attachments The following attachments cannot be sent through Care Everywhere. * Non-Epileptic Seizure: General Info (Stateless Citizen Of [place]) [facility] No data available for this section [facility] Progress note No data available for this section [facility] Summary Purpose Family History No Family History Records FoundNo Family History Records FoundNo Family History Records FoundNo Family History Records FoundNo Family History Records FoundNo Family History Records FoundNo Family History Records FoundThere may be information available, but it has not been provided by the sender.No Family History Records FoundNo Family History Records FoundNo Family History Records Found No data available for this section No data available for this section No data available for this section No Family History Records FoundNo Family History Records FoundNo Family History Records FoundNo Family History Records FoundNo Family History Records FoundNo Family History Records FoundNo Family History Records Found Advance Directives No Advanced Directives Records FoundDocuments on File Type Date Recorded Patient Data Entry Analyst Expl anation Advance Directives and Living Will DNR Documentation Power of Multigraph Operator 06/21/2021 2:20 PM [facility] POA Documents on File Type Date Recorded Patient Data Entry Analyst Expl anation Advance Directive(s) 11/16/2018 2:28 PM Advance Directive(s) 11/15/2018 9:11 AM Advance Directive(s) 10/22/2018 10:59 AM Advance Directive(s) 01/23/2017 9:54 AM Advance Directive(s) 10/22/2015 9:05 PM Documents on File Type Date Recorded Patient Data Entry Analyst Expl anation Advance Directive(s) 11/16/2018 2:28 PM Advance Directive(s) 11/15/2018 9:11 AM Advance Directive(s) 10/22/2018 10:59 AM Advance Directive(s) 01/23/2017 9:54 AM Advance Directive(s) 10/22/2015 9:05 PM Documents on File Type Date Recorded Patient Data Entry Analyst Expl anation Living Will 12/03/2015 2:03 PM Healthcare Power of Multigraph Operator 12/03/2015 2:03 PM Latest Code Status on File Code Status Date Activated Date Inactivated Comments Full Code 11/27/2015 11:09 PM 11/30/2015 4:54 PM Full Code 11/26/2015 9:58 PM 11/27/2015 9:00 PM Documents on File Type Date Recorded Patient Data Entry Analyst Expl anation Advance Directive(s) 10/22/2018 10:59 AM Latest Code Status on File Code Status Date Activated Date Inactivated Comments Full Code 04/27/2023 10:38 PM Question Answer Comments Full Code Order Discussed With: Patient Latest Code Status on File Code Status Date Activated Date Inactivated Comments Full Code 04/27/2023 10:38 PM 05/03/2023 1:41 AM Question Answer Comments Full Code Order Discussed With: Patient Documents on File Type Date Recorded Patient Data Entry Analyst Expl anation Advance Directive(s) 10/22/2018 10:59 AM Latest Code Status on File Code Status Date Activated Date Inactivated Comments Full Code 04/27/2023 10:38 PM 05/03/2023 1:41 AM Question Answer Comments Full Code Order Discussed With: Patient Latest Code Status on File Code Status Date Activated Date Inactivated Comments Full Code 04/27/2023 10:38 PM 05/03/2023 1:41 AM Question Answer Comments Full Code Order Discussed With: Patient Chief Complaint Chief Complaint Description Start Date right knee pain Preliminary chief co mplaint data, not yet signed by the author as of Reason for Referral Specialty Diagnoses / Procedures Referred By Hussein fierro Referred To Contact Breast Diseases Diagnoses Nipple discharge Procedures CONSULT TO BREAST CENTER OFFICE/OUTPATIENT [facility] 60-74 MINUTES Tristan Khan MD [address] [place] [address] Referral ID Status Reason Start Date Expiration Date Visits Requested Visits Authorized [id number] Authorized PCP Requested Referral 12/10/2021 03/10/2022 1 1 Specialty Diagnoses / Procedures Referred By Hussein fierro Referred To Contact Diagnoses Family history of breast cancer Procedures CONSULT TO MEDICAL GENETICS - CANCER MEDICAL GENETICS COUNSELING EACH 30 MINUTES Tristan Khan MD [address] [place] [address] [place] [address] Referral ID Status Reason Start Date Expiration Date Visits Requested Visits Authorized [id number] Authorized PCP Requested Referral Auto-Generate d Referral 06/23/2023 06/22/2024 1 1 Specialty Diagnoses / Procedures Referred By Hussein fierro Referred To Contact Breast Diseases Diagnoses Family history of breast cancer Bloody discharge from right nipple Mastalgia Procedures CONSULT TO BREAST CENTER OFFICE/OUTPATIENT [facility] 60-74 MINUTES Tristan Khan MD [address] [place] [address] Referral ID Status Reason Start Date Expiration Date Visits Requested Visits Authorized [id number] Authorized PCP Requested Referral 06/23/2023 09/21/2023 1 1 Medications Administered Section Inactive Administered Medications - up to 3 most recent administrations Medication Order MAR Action Action Date Dose Rate Site onabotulinum toxin type A 200 Units injection (BOTOX) 200 Units, INTRADERMAL, ONCE, 1 dose, On Tala 02/17/22 at 0800, This record documents the total dose provided to patient. See progress note for specific locations and amounts administered. Given 02/17/2022 8:00 AM EDT 200 Units Othe r Inactive Administered Medications - up to 3 most recent administrations Medication Order MAR Action Action Date Dose Rate Site onabotulinum toxin type A 200 Units injection (BOTOX) 200 Units, INTRADERMAL, EVERY 3 MONTHS, First dose on 06/19/23 at 1700, Until Discontinued, This record documents the total dose provided to patient. See progress note for specific locations and amounts administered. REFRIGERATE - Pharmaceutical Waste: Lab Pack - Given 06/19/2023 5:00 PM EST 200 Units Other Health Concerns Infection Onset Date Last Indicated Resolved Time COVID-19 Rule-Out 06/08/2023 06/08/2023 06/08/2023 6:35 PM EST Additional Source Comments INFORMATION SOURCE (unrecogn ized section and content) DATE CREATED AUTHOR AUTHOR'S ORGANIZ ATION 07/22/2018 [facility] DATE CREATED AUTHOR AUTHOR'S ORGANIZ ATION [facility] DATE CREATED AUTHOR AUTHOR'S ORGANIZ ATION 08/06/2019 [facility] DATE CREATED AUTHOR AUTHOR'S ORGANIZ ATION 12/30/2020 [facility] DATE CREATED AUTHOR AUTHOR'S ORGANIZ ATION 08/07/2021 [facility] DATE CREATED AUTHOR AUTHOR'S ORGANIZ ATION 09/15/2021 [facility] DATE CREATED AUTHOR AUTHOR'S ORGANIZ ATION 11/14/2021 [facility] DATE CREATED AUTHOR AUTHOR'S ORGANIZ ATION 05/04/2022 [facility] DATE CREATED AUTHOR AUTHOR'S ORGANIZ ATION 06/08/2022 [facility] DATE CREATED AUTHOR AUTHOR'S ORGANIZ ATION 06/16/2023 [facility] DATE CREATED AUTHOR AUTHOR'S ORGANIZ ATION 07/13/2023 [facility] DATE CREATED AUTHOR AUTHOR'S ORGANIZ ATION 07/23/2023 [facility] DATE CREATED AUTHOR AUTHOR'S ORGANIZ ATION 08/24/2023 [facility] DATE CREATED AUTHOR AUTHOR'S ORGANIZ ATION 08/31/2023 [facility] DATE CREATED AUTHOR AUTHOR'S ORGANIZ ATION 09/02/2023 [facility] DATE CREATED AUTHOR AUTHOR'S ORGANIZ ATION 09/07/2023 [facility] Reason for Visit (unrecogniz ed section and content) Reason For Visit Description Start Date New/Est - 1st visit with physician 09/27 Preliminary reason f or visit data, not yet signed by the author as of right knee pain Reason Onset Date Comments Procedure 09/06/2021 Reason Comments Refill Request Reason Comments Established Patient Follow-Up Reason Comments Referral Request Reason Comments New Patient Seizures Reason Comments F/U on HT Reason Onset Date Comments Refill Request 01/25/2022 Reason Comments Botox Injection Specialty Diagnoses / Procedures Referred By Contac t Referred To Contact HEADACHE Diagnoses Chronic migraine without aura, intractable, without status migrainosus Procedures BOTULINUM TOXIN A PER 1 UNIT CHEMODERVATE FACIAL/TRIGEM/CERV MUSC MIGRAINE Initial due 10/25/2021 Botox 200 units every 12 weeks for 1 year through [facility] buy and bill Preempt protocol [id number] Procedure -13857 chemodervate facial/trigem/cerv musc migraine Eva Shin, PLAN NURSE.MANAGER BANQUET [address] [place] [address] Neur Headache [address] [place] [address] Referral ID Status Reason Start Date Expiration Date V isits Requested Visits Authorized [id number] Authorized 11/02/2021 11/01/2022 4 4 Reason Comments New Patient Reason Comments Established Patient Botox Injection Specialty Diagnoses / Procedures Referred By Contac t Referred To Contact HEADACHE Diagnoses Chronic migraine without aura, intractable, without status migrainosus Procedures BOTULINUM TOXIN A PER 1 UNIT CHEMODERVATE FACIAL/TRIGEM/CERV MUSC MIGRAINE Botox renewal due now Botox 200 units every 12 weeks for 1 year through [facility] buy and bill Preempt protocol [id number] Procedure -28735 chemodervate facial/trigem/cerv musc migraine Eva Shin, PLAN NURSE.MANAGER BANQUET [address] [place] [address] Neur Headache [address] [place] [id number] Referral ID Status Reason Start Date Expiration Date Visits Requested Visits Authorized [id number] Authorized OON Notification Letter 3 05/24/2024 5 5 Reason Comments Recheck Reason Onset Date Comments Psychiatric Problem 06/08/2023 Reason Comments Fibromyalgia Specialty Diagnoses / Procedures Referred By Contac t Referred To Contact PAIN MANAGEMENT Diagnoses Encounter for general adult medical examination without abnormal findings Procedures NEW PATIENT VISIT LEVEL 1 OFFICE/OUTPATIENT NEW SF MDM 15-29 MINUTES OFFICE/OUTPATIENT NEW LOW MDM 30-44 MINUTES OFFICE/OUTPATIENT NEW MODERATE MDM 45-59 MINUTES OFFICE/OUTPATIENT NEW HIGH MDM 60-74 MINUTES Gordo Lafleur MD [address] [place] [address] [facility] [address] [facility] [address] Referral ID Status Reason Start Date Expiration Date V isits Requested Visits Authorized [id number] Closed OON/Self Pay Override 06/07/2023 07/23/2023 1 1 Reason Comments Results Genetic test results - negative Reason Comments Appointment Reason Comments Time change for September 25 procedure Reason Comments Pain Scheduled Active and Recently Administ ered Medications (unrecognized section and content) Care Teams (unrecognized sec tion and content) Medical Researcher Relationship Specialty Start Date End Date ProviderRachelle MD PCP - General Family Medicine 07/06/21 Medical Researcher Relationship Specialty Start Date End Date ProviderRachelle MD PCP - General Family Medicine 07/06/21 Medical Researcher Relationship Specialty Start Date End Date ProviderRachelle MD PCP - General Family Medicine 07/06/21 Medical Researcher Relationship Specialty Start Date End Date Gaby Lerner MD [address] [place] [address] PCP - General Internal Medicine 07/30/20 Gaby Lerner MD [address] [place] [address] Referring Internal Medicine 07/08/20 Ragini Lewis [address] [place] [address] Referring Orthopedics 08/26/21 Medical Researcher Relationship Specialty Start Date End Date Gayb Lerner MD [address] [place] [address] PCP - General Internal Medicine 07/30/20 Gaby Lerner MD [address] [place] [address] Referring Internal Medicine 07/08/20 Ragini Lewis [address] [place] [address] Referring Orthopedics 08/26/21 Medical Researcher Relationship Specialty Start Date End Date Gaby Lerner MD [address] [place] [address] PCP - General Internal Medicine 07/30/20 Gaby Lerner MD [address] [place] [address] Referring Internal Medicine 07/08/20 Ragini Lewis [address] [place] [address] Referring Orthopedics 08/26/21 Medical Researcher Relationship Specialty Start Date End Date Gaby Lerner MD [address] [place] [address] PCP - General Internal Medicine 07/30/20 Gaby Lerner MD [address] [place] [address] Referring Internal Medicine 07/08/20 Ragini Lewis [address] [place] [address] Referring Orthopedics 08/26/21 Medical Researcher Relationship Specialty Start Date End Date Gaby Lerner MD [address] [place] [address] PCP - General Internal Medicine 07/30/20 Gaby Lerner MD [address] [place] [address] Referring Internal Medicine 07/08/20 Ragini Lewis [address] [place] [address] Referring Orthopedics 08/26/21 Medical Researcher Relationship Specialty Start Date End Date Gaby Lerner MD [address] [place] [address] PCP - General Internal Medicine 07/30/20 Gaby Lerner MD [address] [place] [address] Referring Internal Medicine 07/08/20 Ragini Lewis [address] [place] [address] Referring Orthopedics 08/26/21 Medical Researcher Relationship Specialty Start Date End Date Gaby Lerner MD [address] [place] [address] PCP - General Internal Medicine 07/30/20 Gaby Lerner MD [address] [place] [address] Referring Internal Medicine 07/08/20 Ragini Lewis [address] [place] [address] Referring Orthopedics 08/26/21 Medical Researcher Relationship Specialty Start Date End Date Gaby Lerner MD [address] [place] [address] PCP - General Internal Medicine 07/30/20 Gaby Lerner MD [address] [place] [address] Referring Internal Medicine 07/08/20 Ragini Lewis [address] [place] [address] Referring Orthopedics 08/26/21 Medical Researcher Relationship Specialty Start Date End Date Gaby Lerner MD [address] [place] [address] PCP - General Internal Medicine 07/30/20 Gaby Lerner MD [address] [place] [address] Referring Internal Medicine 07/08/20 Ragini Lewis [address] [place] [address] Referring Orthopedics 08/26/21 Medical Researcher Relationship Specialty Start Date End Date Gaby Lerner MD PCP - General Internal Medicine 07/30/20 Gaby Lerner MD Referring Internal Medicine 07/08/20 Ragini Lewis [address] [facility] [place] [address] Referring Orthopedics 08/26/21 Medical Researcher Relationship Specialty Start Date End Date Gaby Lerner MD PCP - General Internal Medicine 07/30/20 Gaby Lerner MD Referring Internal Medicine 07/08/20 Ragini Lewis [facility] [facility] [place] [address] Referring Orthopedics 08/26/21 Phuong Larsen DO [facility] [address] [address] Internal Medicine 05/01/23 Medical Researcher Relationship Specialty Start Date End Date Gaby Lerner MD PCP - General Internal Medicine 07/30/20 Gaby Lerner MD Referring Internal Medicine 07/08/20 Ragini Lewis [address] [place] [address] Referring Orthopedics 08/26/21 Phuong Larsen DO [address] [place] [address] Internal Medicine 05/01/23 Medical Researcher Relationship Specialty Start Date End Date Gaby Lerner MD PCP - General Internal Medicine 07/30/20 Gaby Lerner MD Referring Internal Medicine 07/08/20 Ragini Lewis [address] [place] [address] Referring Orthopedics 08/26/21 Phuong Larsen DO [address] [facility] [address] [place] [place] [address] Internal Medicine 05/01/23 Medical Researcher Relationship Specialty Start Date End Date Gaby Lerner MD PCP - General Internal Medicine 07/30/20 Gaby Lerner MD Referring Internal Medicine 07/08/20 Ragini Lewis [address] [place] [address] Referring Orthopedics 08/26/21 Phuong Larsen DO [address] [place] [address] Internal Medicine 05/01/23 Medical Researcher Relationship Specialty Start Date End Date Gaby Lerner MD PCP - General Internal Medicine 07/30/20 Gaby Lerner MD Referring Internal Medicine 07/08/20 Ragini Lewis [address] [place] [address] Referring Orthopedics 08/26/21 Phuong Larsen DO [address] [facility] [address] [place] [address] Internal Medicine 05/01/23 Medical Researcher Relationship Specialty Start Date End Date Gaby Lerner MD PCP - General Internal Medicine 07/30/20 Gaby Lerner MD Referring Internal Medicine 07/08/20 Ragini Lewis [address] [place] [address] Referring Orthopedics 08/26/21 Phuong Larsen DO [address] [facility] [address] [place] [address] Internal Medicine 05/01/23 Medical Researcher Relationship Specialty Start Date End Date Gaby Lerner MD PCP - General Internal Medicine 07/30/20 Gaby Lerner MD Referring Internal Medicine 07/08/20 Ragini Lewis [address] [place] [address] Referring Orthopedics 08/26/21 Phuong Larsen DO [address] [place] [address] Internal Medicine 05/01/23 Source Comments (unrecognize d section and content) In the event this informatio n is protected by the Federal Confidentiality of Alcohol and Drug Abuse Patient Records regulations: The Federal rules restrict any use of the information to criminally investigate or prosecute any alcohol or drug abuse patient.[facility] the event this information is protected by the Federal Confidentiality of Alcohol and Drug Abuse Patient Records regulations: The Federal rules restrict any use of the information to criminally investigate or prosecute any alcohol or drug abuse patient.[facility] the event this information is protected by the Federal Confidentiality of Alcohol and Drug Abuse Patient Records regulations: The Federal rules restrict any use of the information to criminally investigate or prosecute any alcohol or drug abuse patient.[facility] the event this information is protected by the Federal Confidentiality of Alcohol and Drug Abuse Patient Records regulations: The Federal rules restrict any use of the information to criminally investigate or prosecute any alcohol or drug abuse patient.[facility] the event this information is protected by the Federal Confidentiality of Alcohol and Drug Abuse Patient Records regulations: The Federal rules restrict any use of the information to criminally investigate or prosecute any alcohol or drug abuse patient.[facility] the event this information is protected by the Federal Confidentiality of Alcohol and Drug Abuse Patient Records regulations: The Federal rules restrict any use of the information to criminally investigate or prosecute any alcohol or drug abuse patient.[facility] the event this information is protected by the Federal Confidentiality of Alcohol and Drug Abuse Patient Records regulations: The Federal rules restrict any use of the information to criminally investigate or prosecute any alcohol or drug abuse patient.[facility] the event this information is protected by the Federal Confidentiality of Alcohol and Drug Abuse Patient Records regulations: The Federal rules restrict any use of the information to criminally investigate or prosecute any alcohol or drug abuse patient.[facility]In the event this information is protected by the Federal Confidentiality of Alcohol and Drug Abuse Patient Records regulations: The Federal rules restrict any use of the information to criminally investigate or prosecute any alcohol or drug abuse patient.[facility]In the event this information is protected by the Federal Confidentiality of Alcohol and Drug Abuse Patient Records regulations: The Federal rules restrict any use of the information to criminally investigate or prosecute any alcohol or drug abuse patient.[facility]In the event this information is protected by the Federal Confidentiality of Alcohol and Drug Abuse Patient Records regulations: The Federal rules restrict any use of the information to criminally investigate or prosecute any alcohol or drug abuse patient.[facility]In the event this information is protected by the Federal Confidentiality of Alcohol and Drug Abuse Patient Records regulations: The Federal rules restrict any use of the information to criminally investigate or prosecute any alcohol or drug abuse patient.[facility]In the event this information is protected by the Federal Confidentiality of Alcohol and Drug Abuse Patient Records regulations: The Federal rules restrict any use of the information to criminally investigate or prosecute any alcohol or drug abuse patient.[facility]In the event this information is protected by the Federal Confidentiality of Alcohol and Drug Abuse Patient Records regulations: The Federal rules restrict any use of the information to criminally investigate or prosecute any alcohol or drug abuse patient.[facility] HospitalIn the event this information is protected by the Federal Confidentiality of Alcohol and Drug Abuse Patient Records regulations: The Federal rules restrict any use of the information to criminally investigate or prosecute any alcohol or drug abuse patient.[facility]In the event this information is protected by the Federal Confidentiality of Alcohol and Drug Abuse Patient Records regulations: The Federal rules restrict any use of the information to criminally investigate or prosecute any alcohol or drug abuse patient.[facility] HospitalIn the event this information is protected by the Federal Confidentiality of Alcohol and Drug Abuse Patient Records regulations: The Federal rules restrict any use of the information to criminally investigate or prosecute any alcohol or drug abuse patient.[facility] HospitalIn the event this information is protected by the Federal Confidentiality of Alcohol and Drug Abuse Patient Records regulations: The Federal rules restrict any use of the information to criminally investigate or prosecute any alcohol or drug abuse patient.[facility] HospitalIn the event this information is protected by the Federal Confidentiality of Alcohol and Drug Abuse Patient Records regulations: The Federal rules restrict any use of the information to criminally investigate or prosecute any alcohol or drug abuse patient.[facility] FOR RECORDS PERTAINING TO PATIENTS WHO ARE OR HAVE BEEN ENROLLED IN A CHEMICAL DEPENDENCY/SUBSTANCEABUSE PROGRAM, SOME INFORMATION MAY BE OMITTED. This clinical summary was aggregated from multiple sources. Caution should be exercised in using it in the provision of clinical care. This summary normalizes information from multiple sources, and as a consequence, information in this document may materially change the coding, format and clinical context of patient data. In addition, data may be omitted in some cases. CLINICAL DECISIONS SHOULD BE BASED ON THE PRIMARY CLINICAL RECORDS. [facility] [employer] [facility]. provides no warranty or guarantee of the accuracy or completeness of information in this document.
--- NOTE | 2023-09-16 17:20 | RAD_ITS ---
STUDY: X-RAY CHEST REASON FOR EXAM: Female, 28 years old. Cough TECHNIQUE: PA and lateral views of the chest. COMPARISON: 12/10/2018. FINDINGS: The lungs are clear and expanded. There is no demonstrated pleural abnormality. Normal size heart. Normal mediastinum and mir. Normal visualized pulmonary arteries. Normal visualized aortic arch and descending thoracic aorta. Normal visualized thoracic spine. Normal visualized ribs, clavicles, and shoulders. There is no demonstrated abnormality of the visualized soft tissue structures of the upper abdomen. RAD/Chest PA and Lateral IMPRESSION: No fracture or malalignment. Electronically Signed: Harpal Cohn MD ([place]) at 17:47 EST ,
[2023-09-16 17:54] VITALS: BP 134/88; PULSE 87; RESP 16; TEMP 36.4; O2SAT 98
== END 2023-09-16 17:55 | disposition home or self-care (01) ==
PROVIDERS: Emergency Provider Emergency Medicine; Visit Provider Emergency Medicine
DX: U07.1 COVID-19 (principal); F17.210 Nicotine dependence, cigarettes, uncomplicated
CPT/HCPCS: 71046; 99282

== ENCOUNTER → 2023-09-22 | Outpatient (CLI) | payer MEDICAID, SELFPAY ==
--- OUTSIDE RECORDS SUMMARY | 2023-09-22 12:28 | XMS RPT_ITS | CCD ---
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 Name Role Phone Hermilo CRUZ, Iman Barros Unavailable [phone] SOCRATES GARIBAY Unavailable Unavailable SCOUT NAVA Unavailable Unavailab UDAY Dewitt Unavailable Unavailable SABA SINCLAIR Referring Unavailable MELCHOR ASHLEY Primary Care Unavailable Hermilo CRUZ, Iman Barros Unavailable [phone] GABY LERNER Primary Care Unavailable JUNIOR CRUZ, DR SHEIKH Admitting Unavail nicholas PACHECO MD, DR SHEIKH Consulting Unavail nicholas PACHECO MD, DR SHEIKH Attending Unavail able RUTH MONAHAN Consulting Unavailable KYLAH CRUZ, COLLIN Thomson Consulting Unavailable ROMINA CRUZ, RIVERA Harrell Consulting Unavailable YANN, DR BRYAN Consulting Unavailable NONE, NONE Consulting Unavailable JUNIOR CRUZ, DR SHEIKH Attending Unavail able JUNIOR CRUZ, DR SHEIKH Admitting Unavail able NONE, NONE Primary Care Unavailable NONE, NONE Primary Care Unavailable JUNIOR CRUZ, DR SHEIKH Admitting Unavail nicholas PACHECO MD, DR SHEIKH Consulting Unavail nicholas PACHECO MD, DR SHEIKH Attending Unavail able Jayesh [phone], Jorge [phone] Co nsulting Unavailable NONE, NONE Consulting Unavailable Dante CRUZ, Unspecified Primary Care Provider U navailable KIRSTEN CARPENTER Attending UnavailKIRSTEN Jackson Admitting Unavailgail Alicia MD, Lincoln Harrell Unavailable Provider , Unlisted Primary Care Provider Unav ailGaby Griggs MD Unavailable [phone] Gaby Lerner MD Primary Care Provider Ragini Lewis Unavailable CHAVA PHUONG E Referring Unavailab le July Attending Unavailable PROVIDER, UNLISTED Primary Care Unavailable ALEXANDRABRANDEN ShipleyN Referring Unavailable TYSON ALEXANDRA Attending Unavailable BJORNSTAD, FÉLIX Attending Unavailable BJORNSTAD, FÉLIX Referring Unavailable PROVIDER, UNLISTED Primary Care Unavailable ELLENCREJERMAINE, PHUONG E Referring Unavailab le ALEXANDRA, TYSON Attending Unavailable ALEXANDRA, TYSON Attending Unavailable ALEXANDRA, TYSON Referring Unavailable PROVIDER, UNLISTED Primary Care Unavailable SCOTT WILSON Admitting Unavailable SCOTT WILSON Attending Unavailable PROVIDER, UNLISTED Primary Care Unavailable BJORNSTAD, FÉLIX Attending Unavailable BJORNSTAD, FÉLIX Referring Unavailable BJORNSTAD, FÉLIX Admitting Unavailable PROVIDER, UNLISTED Primary Care Unavailable ALEXANDRA, TYSON Attending Unavailable ALEXANDRA, TYSON Referring Unavailable PROVIDER, UNLISTED Primary Care Unavailable BJORNSTAD, FÉLIX Referring Unavailable BJORNSTAD, FÉLIX Attending Unavailable PROVIDER, UNLISTED Primary Care Unavailable BJORNSTAD, FÉLIX Attending Unavailable BJORNSTAD, FÉLIX Referring Unavailable PROVIDER, UNLISTED Primary Care Unavailable PROVIDER, UNLISTED Primary Care Unavailable ELLENCREJERMAINE, PHUONG E Referring Unavailab le ALEXANDRA, TYSON Attending Unavailable BJORNSTAD, FÉLIX Attending Unavailable PROVIDER, UNLISTED Primary Care Unavailable PROVIDER, UNLISTED Referring Unavailable BJORNSTAD, FÉLIX Attending Unavailable PROVIDER, UNLISTED Referring Unavailable PROVIDER, UNLISTED Primary Care Unavailable TYSON ALEXANDRA Attending Unavailable PROVIDER, UNLISTED Primary Care Unavailable BJORNSTAD, FÉLIX Attending Unavailable BJORNSTAD, FÉLIX Referring Unavailable PROVIDER, UNLISTED Primary Care Unavailable PROVIDER, UNLISTED Primary Care Unavailable RICHCREEK, PHUONG E Referring Unavailab le ALEXANDRA, TYSON Attending Unavailable RICHCREEK, PHUONG E Referring Unavailab le ALEXANDRA, TYSON Attending Unavailable PROVIDER, UNLISTED Primary Care Unavailable Unavailable Primary Care Provider Unavailabl e NEELY, GUILLE E Attending Unavailable NEELY, GUILLE E Admitting Unavailable AA NO PCP, NO PCP Primary Care Unavailable Gaby Lerner MD Unavailable Gaby Lerner MD Primary Care Provider Ragini Lewis Unavailable JENNIFER CRUZ, DR LEXA Rosario Primary Care Physician [phone] JENNIFER CRUZ, DR LEXA Rosario Primary Care Unavailable SHANNON JOHNSON, MARIELLE Harrell Attending Unavailable AYDIN CRUZ, DR SANYA Villatoro [...] DO Attending Unavailable ROSE DONNELLY Admitting Unavailable ROSE DONNELLY Primary Care Unavailable ROSE DONNELLY Attending Unavailable ELLENCREEK, PHUONG E Referring Unavailab NNAMDI [place] Admitting Unavailable NNAMDI CHRISTOPHER Primary Care Unavailable NNAMDI CHRISTOPHER Attending Unavailable RICHCREEK, PHUONG E Consulting Unavailab le PROVIDER, UNKNOWN Consulting Unavailable ROSE DONNELLY Admitting Unavailable ROSE DONNELLY Primary Care Unavailable ROSE DONNELLY Attending Unavailable WADE, MUSA T Admitting Unavailable WADE, MUSA T Primary Care Unavailable WADE, MUSA T Attending Unavailable RICHCREEK, PHUONG E Consulting Unavailab le PROVIDER, UNKNOWN Consulting Unavailable RICHCREEK, PHUONG E Admitting Unavailab le RICHCREEK, PHUONG E Primary Care Unavailab le RICHCREEK, PHUONG E Attending Unavailab le GABY LERNER Primary Care Unavailable TRISTAN KHAN Referring Unavailable STONE ALVAREZ Attending Unavailable GABY LERNER Primary Care Unavailable PROVIDER, UNKNOWN Referring Unavailable RICHCREEK, PHUONG Referring Unavailable RICHCREEK, PHUONG Primary Care Unavailable RICHCREEK, PHUONG Attending Unavailable RICHCREEK, PHUONG Primary Care Unavailable RICHCREEK, PHUONG Attending Unavailable RICHCREEK, PHUONG Referring Unavailable RICHCREEK, PHUONG Referring Unavailable RICHCREEK, PHUONG Primary Care Unavailable RICHCREEK, PHUONG Attending Unavailable RICHCREEK, PHUONG Referring Unavailable RICHCREEK, PHUONG Primary Care Unavailable RICHCREEK, PHUONG Attending Unavailable TIFFANY DUMONT Admitting Unavailable ANDRZEJ ROSE CATES (HIST) Referring Unavailable KALISETTI, GABY Primary Care Unavailable DAT VALLEJO Attending Unavailable DEMAR PEREZ Consulting Unavailable KALISETTI, GABY Primary Care Unavailable PHYLLIS RICHTER Attending Unavailable GORDO LAFLEUR Attending Unavailable GORDO LAFLEUR Referring Unavailable KALISETTI, GABY Primary Care Unavailable KALISETTI, GABY Primary Care Unavailable KALISETTI, GABY Primary Care Unavailable CLAUDE RAI Attending Unavailable KALISETTI, GABY Primary Care Unavailable RAFITA CHAVEZ Attending Unavaila ble KALISETTI, GABY Primary Care Unavailable EVA SHIN Attending Unavailable KALISETTI, GABY Primary Care Unavailable EVA SHIN Attending Unavailable EVA SHIN Referring Unavailable KALISETTI, GABY Primary Care Unavailable TRISTAN KHAN Referring Unavailable KALISETTI, GABY Primary Care Unavailable TRISTAN KHAN Referring Unavailable TEODORA MORAN Attending Unavailable KALISETTI, GABY Primary Care Unavailable TRISTAN KHAN Attending Unavailable KALISETTI, GABY Primary Care Unavailable EVA SHIN Attending Unavailable KALISETTI, GABY Primary Care Unavailable Allergies Allergy Classification Reported Allergen(s) Allergy Type Date of Onset Reaction(s) Facility Anticholinergics (1 source) Dicyclomine Drug Allergy [facility] Repository benzonatate (1 source) benzonatate Drug Allergy [facility] Repository Cephalosporins (antibiotic) (1 source) Cephalexin Drug Allergy [facility] Repository Corticosteroids (1 source) prednisoLONE Drug Allergy [facility] Repository desflurane (1 source) desflurane Drug Allergy [facility] Repository Latex (1 source) Latex; Translations: [Latex] Substance Allergy [facility] Repository Lincosamides (antibiotic) (1 source) Clindamycin Drug Allergy [facility] Repository NIFEdipine (1 source) NIFEdipine Drug Allergy [facility] Repository Nitroimidazoles (antibiotic) (1 source) metroNIDAZOLE Drug Allergy [facility] Repository NSAIDs (1 source) meloxicam Drug Allergy [facility] Repository Ondansetron (1 source) Ondansetron Drug Allergy [facility] Repository Opioid Agonists (1 source) Codeine Drug Allergy [facility] Repository Penicillins (antibiotic) (2 sources) Amoxicillin; Translations: [Penicillins] Drug Allergy [facility] Repository Progesterone (1 source) Progesterone Drug Allergy [facility] Repository sevoflurane (1 source) sevoflurane Drug Allergy [facility] Repository Succinylcholine (1 source) Succinylcholine Drug Allergy [facility] Repository Sulfonamides (antibiotic) (1 source) Sulfonamides (Antibiotic) Drug Allergy [facility] Repository Terbutaline (1 source) Terbutaline Drug Allergy [facility] Repository (20 sources) NIFEdipine; Translations: [NIFEDIPINE] Drug Allergy Other (See Comments), Hives, Other [facility] Repository (20 sources) terbutaline; Translations: [TERBUTALINE] Drug Allergy Other (See Comments), Hives, Other [facility] Repository (1 source) CLINDAMYCIN/LINCOMYCI N; Translations: [CLINDAMYCIN/LINCOMYC IN] Propensity to adverse reactions to drug (disorder) [facility] Repository (1 source) OTHER; Translations: [OTHER] Propensity to adverse reactions to food (disorder) AOF [facility] Repository (4 sources) SULFA ANTIBIOTICS; Translations: [SULFA ANTIBIOTICS] Propensity to adverse reactions to drug (disorder) Hives [facility] Repository (20 sources) benzonatate; Translations: [BENZONATATE] Drug Allergy Other (See Comments), Rash [facility] Repository (20 sources) Cephalexin; Translations: [CEPHALEXIN] Drug Allergy Nausea And Vomiting, Anaphylaxis, Hives [facility] Repository (20 sources) Clindamycin; Translations: [CLINDAMYCIN] Drug Allergy Hives, Shortness of Breath [facility] Repository (20 sources) Dicyclomine; Translations: [DICYCLOMINE] Drug Allergy Hives, Itching [facility] Repository (20 sources) Latex; Translations: [LATEX] Propensity to adverse reactions (disorder) Anaphylaxis, Rash [facility] Repository (20 sources) meloxicam; Translations: [MELOXICAM] Drug Allergy Other (See Comments), Other: See Comments [facility] Repository (20 sources) metroNIDAZOLE; Translations: [METRONIDAZOLE HCL] Drug Allergy Itching [facility] Repository (20 sources) Ondansetron; Translations: [ONDANSETRON HCL (PF)] Drug Allergy Swelling [facility] Repository (20 sources) Penicillin; Translations: [PENICILLIN] Drug Allergy [facility] Repository (20 sources) predniSONE; Translations: [PREDNISONE] Drug Allergy Rash, Swelling [facility] Repository (20 sources) Sulfonamides (Antibiotic); Translations: [SULFA (SULFONAMIDE ANTIBIOTICS)] Propensity to adverse reactions (disorder) [facility] Repository (20 sources) PROGESTERONE AQUEOUS; Translations: [PROGESTERONE AQUEOUS] Propensity to adverse reactions (disorder) Rash [facility] Repository (4 sources) Ondansetron Drug Allergy Hives [facility] (8 sources) Penicillins; Translations: [PENICILLINS] Propensity to adverse reactions to drug Anaphylaxis, Hives [facility] (4 sources) prednisoLONE Drug Allergy Rash [facility] (4 sources) Sulfonamides (Antibiotic) Propensity to adverse reactions to drug Anaphylaxis [facility] (8 sources) Amoxicillin; Translations: [AMOXICILLIN] Drug Allergy [facility] Repository (1 source) Clindamycin Drug Allergy unknown [facility] Work Phone: (1 source) House dust mite; Translations: [DUST MITES] allergy to substance [facility] Work Phone: (1 source) Mold Extract Drug Allergy [facility] Work Phone: (1 source) Sulfacetamide Drug Allergy unknown [facility] Work Phone: (1 source) WOOL; Translations: [WOOL] allergy to substance [facility] Work Phone: (1 source) Adhesive agent; Translations: [Adhesive] Propensity to adverse reactions (disorder) [facility] Repository (1 source) Azithromycin Drug Allergy [facility]ository (1 source) Ciprofloxacin Drug Allergy [facility] Rep[facility] (1 source) Film dressing Drug allergy (disorder) [facility] Rep[facility] (1 source) Leucine Drug Allergy [facility] (1 source) Ondansetron Drug Allergy [facility] Repository (1 source) Shrimp product Drug allergy (disorder) [facility] Repository (1 source) Sulfonamides (Antibiotic) Drug allergy (disorder) [facility] Repository (14 sources) Shellfish; Translations: [SHELLFISH DERIVED] Drug Allergy 023 Swelling [facility] Work Phone: (14 sources) [id number] Antimigraine Agents; Translations: [[id number] ANTIMIGRAINE AGENTS] Propensity to adverse reactions to drug 023 Contraindicat ion-[facility] Work Phone: (4 sources) Codeine; Translations: [codeine] Drug Allergy Amoxicillin (product) [facility] (4 sources) Progesterone; Translations: [progesterone] Drug Allergy [facility] (3 sources) Sulfonamides (Antibiotic); Translations: [sulfa drugs] Drug allergy [facility] (1 source) Azithromycin Drug Allergy [facility] Repository (1 source) Codeine Drug Allergy [facility] Rep[facility] (1 source) metroNIDAZOLE Drug Allergy [facility] (1 source) Ondansetron Drug Allergy [facility] (1 source) Penicillin Drug Allergy [facility] (1 source) Progesterone Drug Allergy [facility] (1 source) Shellfish; Translations: [SHELLFISH] Food allergy (disorder) [facility] Repository (1 source) Sulfonamides (Antibiotic) Drug allergy (disorder) [facility] Repository (1 source) chlophedianol Drug Allergy [facility] Repository (1 source) Ciprofloxacin Drug Allergy [facility] Repository (1 source) dexbrompheniramine Drug Allergy [facility] (1 source) Ondansetron Drug Allergy [facility] (1 source) prednisoLONE Drug Allergy [facility] (1 source) Progesterone Drug Allergy [facility] (1 source) Sulfacetamide Drug Allergy [facility] (1 source) Sulfonamide; Translations: [sulfa drugs] Drug allergy [facility] Medications Current Medications Medication Drug Class(es) Dates [...] Date: 05/27/23 Stop Date: 05/30/23 Status: Ordered busPIRone hydrochloride 15 mg oral tablet (11 sources) Start: 04-12-2023 busPIRone 15 mg oral tablet Dose : 15 mg = 1 tab(s), Oral, TID, # 270 tab(s), 0 Refill(s) Start Date: 06/29/23 Status: Ordered Completed/Discontinued Medications Medication Drug Class(es) Dates Sig (Normalized) Sig (Original) acetaminophen 500 mg oral tablet (10 sources) Start: 12-06-2018 take 2 tablets by mouth every eight hours as needed acetaminophen (TYLENOL) 500 mg tablet Take 2 tablets by mouth every 8 hours as needed. 45 tablet 0 12/06/2018 Suspended Problems Active Problems Problem Classification Problem Date Documented Date Episodic/Chronic Abdominal pain (8 sources) Abdominal pain in Onset: 10-16-2013 10-16-2013 [...] Onset: 07-20-2020 Episodic Unclassified (1 source) Problem Viral infection (1 source) Disease caused by 2019-nCoV; Translations: [COVID-19] Onset: 09-15-2023 Results Test Name Value Interpretation Reference Range Facil ity Vital Signs Date Time Vital Sign Value Performing Clinician Facility 09-15-2023 10:50-0500 Body height 167.[address] URIEL ROMERO MD [facility] 09-15-2023 10:50-0500 Body temperature 99.5 [degF] DR URIEL ROMERO MD [facility] 09-15-2023 10:50-0500 Body weight [address] URIEL ROMERO MD [facility] 09-15-2023 10:50-0500 Diastolic Blood Pressure Non-Invasive 67 mm[Hg] DR URIEL ROMERO MD [facility] 09-15-2023 10:50-0500 Heart rate 110 /min DR URIEL ROMERO MD [facility] 09-15-2023 10:50-0500 Respiratory rate 20 /min DR URIEL ROMERO MD [facility] 09-15-2023 10:50-0500 Systolic Blood Pressure Non-Invasive 109 mm[Hg] DR URIEL ROMERO MD [facility] 06-28-2023 08:59-0500 Body weight 78.56 kg Gordo Lafleur MD Work Phone: [facility] 06-28-2023 08:59-0500 Diastolic blood pressure 62 mm[Hg] Gordo Lafleur MD Work Phone: [facility] 06-28-2023 08:59-0500 Heart rate 94 /min Gordo Lafleur MD Work Phone: [facility] 06-28-2023 08:59-0500 SaO2% (BldA) [Mass fraction] 99 % Gordo Lafleur MD Work Phone: [facility] 06-28-2023 08:59-0500 Systolic blood pressure 116 mm[Hg] Gordo Lafleur MD Work Phone: [facility] 06-19-2023 15:53-0500 Body height 167.6 cm Eva Shin APRN.CNP Work Phone: [facility] 06-19-2023 15:53-0500 Body weight 75.75 kg Eva Teresa GEOPHYSICAL OBSERVER.PHOTOENGRAVING MACHINE OPERATOR/TENDER Work Phone: [facility] 06-19-2023 15:53-0500 Diastolic blood pressure 56 mm[Hg] Eva Teresa GEOPHYSICAL OBSERVER.PHOTOENGRAVING MACHINE OPERATOR/TENDER Work Phone: [facility] 06-19-2023 15:53-0500 Heart rate 81 /min Eva Teresa GEOPHYSICAL OBSERVER.PHOTOENGRAVING MACHINE OPERATOR/TENDER Work Phone: [facility] 06-19-2023 15:53-0500 Respiratory rate 18 /min Eva Teresa GEOPHYSICAL OBSERVER.PHOTOENGRAVING MACHINE OPERATOR/TENDER Work Phone: [facility] 06-19-2023 15:53-0500 Systolic blood pressure 108 mm[Hg] Eva Teresa GEOPHYSICAL OBSERVER.PHOTOENGRAVING MACHINE OPERATOR/TENDER Work Phone: [facility] 06-03-2023 23:53-0500 Diastolic Blood Pressure Non-Invasive [address] SANYA PERRIN MD [facility] 06-03-2023 23:53-0500 Heart rate 79 /min DR SANYA PERRIN MD [facility] 06-03-2023 23:53-0500 Respiratory rate 18 /min DR SANYA PERRIN MD [facility] 06-03-2023 23:53-0500 Systolic Blood Pressure Non-Invasive [address] SANYA PERRIN MD [facility] 06-03-2023 22:24-0500 Diastolic Blood Pressure Non-Invasive [address] SANYA PERRIN MD [facility] 06-03-2023 22:24-0500 Heart rate 91 /min DR SANYA PERRIN MD [facility] 06-03-2023 22:24-0500 Respiratory rate 18 /min DR SANYA PERRIN MD [facility] 06-03-2023 22:24-0500 Systolic Blood Pressure Non-Invasive [address] SANYA PERRIN MD [facility] 06-03-2023 20:48-0500 Body temperature 97.52 [degF] DR SANYA PERRIN MD [facility] 06-03-2023 20:48-0500 Body weight 79.[address] SANYA PERRIN MD [facility] 06-03-2023 20:48-0500 Diastolic Blood Pressure Non-Invasive [address] SANYA PERRIN MD [facility] 06-03-2023 20:48-0500 Heart rate 93 /min DR SANYA PERRIN MD [facility] 06-03-2023 20:48-0500 Respiratory rate 18 /min DR SANYA PERRIN MD [facility] 06-03-2023 20:48-0500 Systolic Blood Pressure Non-Invasive [address] SANYA PERRIN MD [facility] 05-27-2023 15:14-0400 Diastolic Blood Pressure Non-Invasive [address] URIEL ROMERO MD [facility] 05-27-2023 15:14-0400 Heart rate 73 /min DR URIEL ROMERO MD [facility] 05-27-2023 15:14-0400 Respiratory rate 18 /min DR URIEL ROMERO MD [facility] 05-27-2023 15:14-0400 Systolic Blood Pressure Non-Invasive [address] URIEL ROMERO MD [facility] 05-27-2023 12:05-0400 Diastolic Blood Pressure Non-Invasive [address] URIEL ROMERO MD [facility] 05-27-2023 12:05-0400 Reason For Taking VItal Signs DR URIEL ROMERO MD [facility] 05-27-2023 12:05-0400 Systolic Blood Pressure Non-Invasive [address] URIEL ROMERO MD [facility] 05-27-2023 11:55-0400 Diastolic Blood Pressure Non-Invasive [address] URIEL ROMERO MD [facility] 05-27-2023 11:55-0400 Systolic Blood Pressure Non-Invasive [address] URIEL ROMERO MD [facility] 05-27-2023 11:33-0400 Body temperature 98.78 [degF] DR URIEL ROMERO MD [facility] 05-27-2023 11:33-0400 Body weight 73.[address] URIEL ROMERO MD [facility] 05-27-2023 11:33-0400 Heart rate 91 /min DR URIEL ROMERO MD [facility] 05-27-2023 11:33-0400 Respiratory rate 18 /min DR URIEL ROMERO MD [facility] 02-17-2022 09:49-0400 Body height 167.6 cm Eva Teresa GEOPHYSICAL OBSERVER.PHOTOENGRAVING MACHINE OPERATOR/TENDER Work Phone: [facility] 02-17-2022 09:49-0400 Body weight 67.59 kg Eva Teresa GEOPHYSICAL OBSERVER.PHOTOENGRAVING MACHINE OPERATOR/TENDER Work Phone: [facility] 02-17-2022 09:49-0400 Diastolic blood pressure 71 mm[Hg] Eva Teresa GEOPHYSICAL OBSERVER.PHOTOENGRAVING MACHINE OPERATOR/TENDER Work Phone: [facility] 02-17-2022 09:49-0400 Heart rate 116 /min Eva Teresa GEOPHYSICAL OBSERVER.PHOTOENGRAVING MACHINE OPERATOR/TENDER Work Phone: [facility] 02-17-2022 09:49-0400 Respiratory rate 14 /min Eva Teresa GEOPHYSICAL OBSERVER.PHOTOENGRAVING MACHINE OPERATOR/TENDER Work Phone: [facility] 02-17-2022 09:49-0400 SaO2% (BldA) [Mass fraction] 98 % Eva Teresa GEOPHYSICAL OBSERVER.PHOTOENGRAVING MACHINE OPERATOR/TENDER Work Phone: [facility] 02-17-2022 09:49-0400 Systolic blood pressure 119 mm[Hg] Eva Teresa GEOPHYSICAL OBSERVER.PHOTOENGRAVING MACHINE OPERATOR/TENDER Work Phone: [facility] 11-12-2021 10:33-0400 Body height 167.6 cm Isreal Beckham MD Work Phone: [facility] 11-12-2021 10:33-0400 Body weight 68.04 kg sIreal Beckham MD Work Phone: [facility] 11-12-2021 10:33-0400 Diastolic blood pressure 84 mm[Hg] Isreal Beckham MD Work Phone: [facility] 11-12-2021 10:33-0400 Heart rate 79 /min Isreal Beckham MD Work Phone: [facility] 11-12-2021 10:33-0400 Systolic blood pressure 121 mm[Hg] Isreal Beckham MD Work Phone: [facility] 10-22-2021 10:54-0400 Body height 167.6 cm Eva Teresa GEOPHYSICAL OBSERVER.PHOTOENGRAVING MACHINE OPERATOR/TENDER Work Phone: [facility] 10-22-2021 10:54-0400 Body weight 70.17 kg Eva Teresa GEOPHYSICAL OBSERVER.PHOTOENGRAVING MACHINE OPERATOR/TENDER Work Phone: [facility] 10-22-2021 10:54-0400 Diastolic blood pressure 74 mm[Hg] Eva Teresa GEOPHYSICAL OBSERVER.PHOTOENGRAVING MACHINE OPERATOR/TENDER Work Phone: [facility] 10-22-2021 10:54-0400 Heart rate 117 /min Eva Teresa GEOPHYSICAL OBSERVER.PHOTOENGRAVING MACHINE OPERATOR/TENDER Work Phone: [facility] 10-22-2021 10:54-0400 SaO2% (BldA) [Mass fraction] 100 % Eva Teresa GEOPHYSICAL OBSERVER.PHOTOENGRAVING MACHINE OPERATOR/TENDER Work Phone: [facility] 10-22-2021 10:54-0400 Systolic blood pressure 125 mm[Hg] Eva Teresa GEOPHYSICAL OBSERVER.PHOTOENGRAVING MACHINE OPERATOR/TENDER Work Phone: [facility] 07-06-2021 20:46-0500 Diastolic blood pressure 57 mm[Hg] Scott Wilson MD Work Phone: [facility] 07-06-2021 20:46-0500 Heart rate 103 /min Scott Wilson MD Work Phone: [facility] 07-06-2021 20:46-0500 Respiratory rate 22 /min Scott Wilson MD Work Phone: [facility] 07-06-2021 20:46-0500 SaO2% (BldA) [Mass fraction] 99 % Scott Wilson MD Work Phone: [facility] 07-06-2021 20:46-0500 Systolic blood pressure 103 mm[Hg] Scott Wilson MD Work Phone: [facility] 07-06-2021 13:09-0500 Body height 165.1 cm Scott Wilson MD Work Phone: [facility] 07-06-2021 13:09-0500 Body mass index (BMI) [Ratio] 24.96 kg/m2 Scott Wilson MD Work Phone: [facility] 07-06-2021 13:09-0500 Body temperature 98.71 [degF] Scott Wilson MD Work Phone: [facility] 07-06-2021 13:09-0500 Body weight 68.04 kg Scott Wilson MD Work Phone: [facility] NEGATED: Highlighted [id number] 11:05-0500 Body height 167.64 cm Zari Chowdary AT [facility] Work Phone: NEGATED: Highlighted [id number] 11:05-0500 Body height 168 cm Zari Chowdary AT [facility] Work Phone: NEGATED: Highlighted [id number] 11:05-0500 Body mass index (BMI) [Ratio] 24.14 kg/m2 Zari Chowdary AT [facility] Work Phone: NEGATED: Highlighted [id number] 11:05-0500 Body weight 67.59 kg Zari Chowdary AT [facility] Work Phone: NEGATED: Highlighted [id number] 11:05-050 Body weight 68 kg Zari Chowdary AT [facility] Work Phone: Encounters Encounter Date Encounter Type Care Provider Facility Start: 09-15-2023 End: 09-15-2023 Emergency department patient visit DR URIEL ROMERO MD [facility] Start: 09-05-2023 End: 09-05-2023 ambulatory CLAUDE RAI Facility:[id number] Start: 09-05-2023 End: 09-05-2023 Telemedicine consultation with patient Shashi Rai GEOPHYSICAL OBSERVER.PHOTOENGRAVING MACHINE OPERATOR/TENDER Work Phone: [facility] Start: 09-05-2023 End: 09-05-2023 Telephone encounter Shashi Rai ROYAL.PHOTOENGRAVING MACHINE OPERATOR/TENDER Work Phone: Pain Management Procedures Date Procedure Procedure Detail Performing Clinician Start: 04-27-2023 Urinalysis [facility] Plan of Treatment Date Care Activity Detail Author Start: 2044 Shingles (RZV) Vacci ne (1 of 2) Shingles (RZV) Vaccine (1 of 2) [facility] Start: 09-04-2030 Urine microalbumin profile DTa P,Tdap,Td Vaccine (12 - Td or Tdap) [facility] Start: 05-25-2027 Urine microalbumin profile [facility] Start: 11-10-2025 Tetanus vaccination Tetanus (T d or Tdap) [facility] Start: 06-21-2024 Pneumococcal vaccination [facility] Immunizations Immunization Date Immunization Notes Care Provider Adrian harvey 05-17-2023 influenza virus vaccine, unspecified formulation Tristan Khan MD Work Phone: [facility] Work Phone: 09-04-2020 tetanus toxoid, redu brenda diphtheria toxoid, and acellular pertussis vaccine, adsorbed DR URIEL ROMERO MD [facility] 06-03-2019 influenza, injectabl e, quadrivalent, contains preservative Uzair Parks MD Work Phone: [facility] 06-03-2019 influenza virus vaccine, unspecified formulation Rafita Chavez MD Work Phone: [facility] 03-22-2018 influenza, injectabl e, quadrivalent, contains preservative Uzair Parks MD Work Phone: [facility] 05-25-2017 tetanus toxoid, redu brenda diphtheria toxoid, and acellular pertussis vaccine, adsorbed Uzair Parks MD Work Phone: [facility] 01-02-2017 pneumococcal polysaccharide vaccine, 23 valent Uzair Parks MD Work Phone: [facility] 04-13-2016 influenza virus vaccine, unspecified formulation Scott Wilson MD Work Phone: [facility] 11-28-2015 pneumococcal polysaccharide vaccine, 23 vallibrado Parks MD Work Phone: [facility] Work Phone: 11-11-2015 tetanus toxoid, redu brenda diphtheria toxoid, and acellular pertussis vaccine, adsorbed Uzair Parks MD Work Phone: [facility] Work Phone: 10-31-2013 pneumococcal polysaccharide vaccine, [address] URIEL ROMERO MD [facility] 10-30-2013 tetanus toxoid, redu brenda diphtheria toxoid, and acellular pertussis vaccine, adsorbed DR URIEL ROMERO MD [facility] 05-22-2012 tetanus toxoid, redu brenda diphtheria toxoid, and acellular pertussis vaccine, adsorbed Uzair Parks MD Work Phone: [facility] Work Phone: 05-22-2012 varicella virus vaccine Claudia Parks MD Work Phone: [facility] Work Phone: 02-16-2012 meningococcal polysaccharide (groups A, C, Y and W-135) diphtheria toxoid conjugate vaccine (MCV4P) Uzair Parks MD Work Phone: [facility] Work Phone: 02-10-2011 tetanus toxoid, redu brenda diphtheria toxoid, and acellular pertussis vaccine, adsorbed Uzair Parks MD Work Phone: [facility] Work Phone: 11-16-2009 human papilloma viru s vaccine, quadrivalent Uzair Parks MD Work Phone: [facility] Work Phone: 08-19-2009 human papilloma viru s vaccine, quadrivalent Uzair Parks MD Work Phone: [facility] Work Phone: 04-29-2009 human papilloma viru s vaccine, quadrivalent Uzair Parks MD Work Phone: [facility] Work Phone: 04-29-2009 meningococcal polysaccharide (groups A, C, Y and W-135) diphtheria toxoid conjugate vaccine (MCV4P) Uzair Parks MD Work Phone: [facility] Work Phone: 05-14-1999 varicella virus vaccine Claudia Parks MD Work Phone: [facility] Work Phone: 04-27-1999 diphtheria, tetanus toxoids and acellular pertussis vaccine, unspecified formulation Uzair Parks MD Work Phone: [facility] Work Phone: 04-27-1999 measles, mumps and rubella virus vaccine Uzair Parks MD Work Phone: [facility] Work Phone: 04-27-1999 poliovirus vaccine, unspecified formulation Uzair Parks MD Work Phone: [facility] Work Phone: 10-03-1995 measles, mumps and rubella virus vaccine Uzair Parks MD Work Phone: [facility] Work Phone: 06-19-1995 diphtheria, tetanus toxoids and acellular pertussis vaccine, unspecified formulation Uzair Parks MD Work Phone: [facility] Work Phone: 1994 diphtheria, tetanus toxoids and acellular pertussis vaccine, unspecified formulation Uzair Parks MD Work Phone: [facility] Work Phone: 1994 poliovirus vaccine, unspecified formulation Uzair Parks MD Work Phone: [facility] Work Phone: 1994 diphtheria, tetanus toxoids and acellular pertussis vaccine, unspecified formulation Uzair Parks MD Work Phone: [facility] Work Phone: 1994 poliovirus vaccine, unspecified formulation Uzair Parks MD Work Phone: [facility] Work Phone: 1994 diphtheria, tetanus toxoids and acellular pertussis vaccine, unspecified formulation Uzair Parks MD Work Phone: [facility] Work Phone: 1994 poliovirus vaccine, unspecified formulation Uzair Parks MD Work Phone: [facility] Work Phone: Payers Date Payer Category Payer Medicaid [id number] 2022 Unknown [id number] 2021 Medicaid [facility] MEDICAID [facility] COMMUNITY PLAN MEDICAID [id number] 2021-Present [phone] [address] [place] [address] Medicaid [id number] 2021 Private Health Insurance [facility] [place]UN[facility] [place] [id number] 2021-Present [phone] [address] [place] [address] Medicaid [id number] 2021 Unknown [employer] [id number] 2021-Present [phone] [address] [address] [place] [address] [id number]. [id number] 2015 Medicaid [id number] 2011 Unknown [id number] 2011 Unknown [id number] 1.13.56.2.7 .[id number] 1994 Unknown [id number] 2.16.840.1.516310.3.579.2. 278 1994 Unknown [id number] 2.16.840.1.790548.3.579.2. 419 1994 Unknown [id number] 2.16.840.1.188477.3.579.2. 419 1994 Unknown [id number] 2.16.840.1.810480.3.579.2. 419 1994 Unknown [id number] 2.16.840.1.628333.3.579.2. 732 1994 Unknown [id number] 2.16.840.1.882943.3.579.2. 297 1994 Unknown [id number] 2.16.840.1.911980.3.579.2. 297 1994 Unknown [id number] 2.16.840.1.004176.3.579.2. 297 1994 Unknown [id number] 2.16.840.1.582996.3.579.2. 297 1994 Unknown [id number] 2.16.840.1.465895.3.579.2. 297 1994 Unknown [id number] 2.16.840.1.648103.3.579.2. 297 1994 Unknown [id number] 2.16.840.1.573845.3.579.2. 297 1994 Unknown [id number] 2.16.840.1.602613.3.579.2. 297 1994 Unknown [id number] 2.16.840.1.298370.3.579.2. 297 1994 Unknown [id number] 2.16.840.1.375678.3.579.2. 297 1994 Unknown [id number] 2.16.840.1.211104.3.579.2. 297 1994 Unknown [id number] 2.16.840.1.329052.3.579.2. 297 1994 Unknown [id number] 2.16.840.1.192453.3.579.2. 297 1994 Unknown [id number] 2.16.840.1.117653.3.579.2. 297 1994 Unknown [id number] 2.16.840.1.506988.3.579.2. 297 1994 Unknown [id number] 2.16.840.1.502004.3.579.2. 297 1994 Unknown [id number] 2.16.840.1.138490.3.579.2. 297 1994 Unknown [id number] 2.16.840.1.952124.3.579.2. 297 1994 Unknown [id number] 2.16.840.1.999225.3.579.2. 297 1994 Unknown [id number] 2.16.840.1.718490.3.579.2. 598 1994 Unknown [id number] 2.16.840.1.045943.3.579.2. 627 1994 Unknown [id number] 2.16.840.1.014885.3.579.2. 627 1994 Unknown [id number] 2.16.840.1.686257.3.579.2. 627 1994 Unknown [id number] 2.16.840.1.264905.3.579.2. 651 1994 Unknown [id number] 2.16.840.1.903686.3.579.2. 651 1994 Unknown [id number] 2.16.840.1.991523.3.579.2. 651 1994 Unknown [id number] 2.16.840.1.458797.3.579.2. 651 1994 Unknown [id number] 2.16.840.1.569879.3.579.2. 651 1994 Unknown [id number] 2.16.840.1.415018.3.579.2. 651 1994 Unknown [id number] 2.16.840.1.250810.3.579.2. 651 1959 Private Health Insurance [id number] 1959 Unknown [id number] Unknown [id number] Unknown [id number] 2.16.840.1.806476.3.579.2. 528 Unknown [id number] 2.16.840.1.251220.3.579.2. 528 Unknown [id number] 2.16.840.1.522978.3.579.2. 528 Unknown [id number] 2.16.840.1.897026.3.579.2. 528 Social History Date Type Detail Facility Start: 07-28-2006 End: 07-21-2023 Tobacco smoking status NHIS Current every day smoker [facility] Start: 07-24-2005 History of tobacco use Cigarette Smoker [facility] Start: 06-21-2021 End: 07-21-2023 Cigarettes smoked current (pack per day) - Reported [facility] Start: 06-21-2021 End: 06-28-2023 Tobacco use and exposure Current user [facility] Start: 07-06-2021 End: 06-08-2023 Alcohol intake Current drinker of alcohol (finding) [facility] Start: 1995 Sex Assigned At Female [facility] Start: 09-28-2021 End: 09-28-2021 Assertion Unknown if ever smoked [facility] Work Phone: History of tobacco use Chews Tobacco [facility] Work Phone: Start: 10-22-2021 Alcohol intake Current non-drinker of alcohol (finding) [facility] Start: 09-04-2019 End: 12-20-2019 History SDOH Alcohol Frequency 1 [facility] Start: 09-04-2019 History SDOH Alcohol Std Drinks 98 [facility] Start: 03-09-2018 History SDOH Alcohol Comment 11 months sober [facility] Start: 09-04-2019 History SDOH Social Connections Phone 5 [facility] Start: 09-04-2019 History SDOH Social Connections Membership 2 [facility] Start: 09-04-2019 History SDOH Social Connections Living 3 [facility] Start: 09-04-2019 History SDOH Physical Activity MPS 15 [facility] Start: 12-20-2019 History SDOH Financial 4 [facility] Start: 09-03-2019 Education 21 [facility] Start: 10-12-2021 End: 02-17-2022 Exposure to SARS-CoV-2 (event) Not sure [facility] Start: 10-27-2017 End: 07-21-2023 Tobacco use and exposure Former smokeless tobacco user [facility] Work Phone: Start: 11-12-2021 History SDOH Alcohol Comment occ [facility] Start: 11-12-2021 Tobacco Comment 2 packs weekly [facility] Start: 11-19-2015 Tobacco Comment 1-2 cigs a day [facility] Start: 09-03-2019 End: 07-21-2023 Social connection and isolation panel [facility] Do you belong to any clubs or organizations such as latter-day groups, unions, fraternal or athletic groups, or school groups? No [facility] Are you now , , , , never or living with a partner? [facility] How often to you hav e a drink containing alcohol? Never [facility] How many standard dr inks containing alcohol do you have on a typical day? Patient refused [facility] Do you feel stress - tense, restless, nervous, or anxious, or unable to sleep at night because your mind is troubled all the time - these days [OSQ] Very much [facility] (I/We) worried wheth er (my/our) food would run out before (I/we) got money to buy more. Never true [facility] Work Phone: Start: 09-25-2018 Gender identity Identifies as female gender (finding) [facility] Start: 04-22-2023 Sexual orientation Bisexual (finding) [facility] Start: 12-29-2022 Tobacco smoking status Light tobacco smoker (finding) [facility] Medical Equipment Procedure Code Equipment Code Equipment Origin al Text Equipment Identifier Dates Gro-Rg-S-Kind Im plant - [id number] Start: 01-27-2017 Screw 9mm Delta Taper Biocomposite 28mm Interference Sterile Knee - [id number] Start: 01-27-2017 Functional Status Date Assessment Result Facility 06-03-2023 Functional Status Assistive Device Slideb oard [facility] 06-03-2023 Functional Status Standard Safet y ID band on, Call device within reach, Bed in low position, Wheels locked, Upper/Half-Length side-rails up, Phone within reach, personal items within reach, Assistive devices within reach, Bedside Cart Locked, Safety level maintained [facility] 05-27-2023 Functional Status Moderate assistance [facility] 05-27-2023 Functional Status Room check performed [facility] Mental Status Date Assessment Result Facility 06-03-2023 Mental Status Orientation Oriented x 4 [facility] 06-03-[address] [facility] Mental Status Orientation Oriented x 4 [facility] 05-27-2023 Mental Status [facility] Clinical Notes 10-13-2016 to 09-15-2023 Patient InstructionsTelephone Encounter - Brandy Hawkins - 09/05/2023 4:02 PM ESTTelephone Encounter - Iona Luna MA - 09/05/2023 3:27 PM Gordo Hernandez MD - 06/28/2023 9:15 AM EST Note Date & Type Note Facility 09-15-2023 Hospital Discharge instructions Patient Education 09/15/2023 11:00:35 Viral Syndrome (Adult) Viral Syndrome (Adult) A viral illness may cause a number of symptoms such as fever. Other symptoms depend on the part of the body that the virus affects. If it settles in your nose, throat, and lungs, it may cause cough, sore throat, congestion, runny nose, headache, earache and other ear symptoms, or shortness of breath. If it settles in your stomach and intestinal tract, it may cause nausea, vomiting, cramping, and diarrhea. Sometimes it causes generalized symptoms like aching all over, feeling tired, loss of energy, or loss of appetite. A viral illness usually lasts anywhere from several days to several weeks, but sometimes it lasts longer. In some cases, a more serious infection can look like a viral syndrome in the first few days of the illness. You may need another exam and additional tests to know the difference. Watch for the warning signs listed below for when to seek medical advice. Home care Follow these guidelines for taking care of yourself at home: If symptoms are severe, rest at home for the first 2 to 3 days. Stay away from cigarette smoke - both your smoke and the smoke from others. You may use xrsq-mwc-vrcicdt acetaminophen or ibuprofen for fever, muscle aching, and headache, unless another medicine was prescribed for this. If you have chronic liver or kidney disease or ever had a stomach ulcer or gastrointestinal bleeding, talk with your healthcare provider before using these medicines. No one who is younger than 18 and ill with a fever should take aspirin. It may cause severe disease or . Your appetite may be poor, so a light diet is fine. Avoid dehydration by drinking 8 to 12, 8-ounce glasses of fluids each day. This may include water; orange juice; lemonade; apple, grape, and cranberry juice; clear fruit drinks; electrolyte replacement and sports drinks; and decaffeinated teas and coffee. If you have been diagnosed with a kidney disease, ask your healthcare provider how much and what types of fluids you should drink to prevent dehydration. If you have kidney disease, drinking too much fluid can cause it build up in the your body and be dangerous to your health. Rdhf-jvr-hqtyyhh remedies won't shorten the length of the illness but may be helpful for symptoms such as cough, sore throat, nasal and sinus congestion, or diarrhea. Don't use decongestants if you have high blood pressure. Follow-up care Follow up with your healthcare provider if you do not improve over the next week. Call 911 Call 911 if any of the following occur: Convulsion Feeling weak, dizzy, or like you are going to faint Chest pain, or more than mild shortness of breath When to seek medical advice Call your healthcare provider right away if any of these occur: Cough with lots of colored sputum (mucus) or blood in your sputum Chest pain, shortness of breath, wheezing, or trouble breathing Severe headache; face, neck, or ear pain Severe, constant pain in the lower right side of your belly (abdominal) Continued vomiting (can t keep liquids down) Frequent diarrhea (more than 5 times a day); blood (red or black color) or mucus in diarrhea Feeling weak, dizzy, or like you are going to faint Extreme thirst Fever of 100.4 F (38 C) or higher, or as directed by your healthcare provider [phone] [employer]. [address] [place] [address], [place] [address]. All rights reserved. This information is not intended as a substitute for professional medical care. Always follow your healthcare professional's instructions. Follow Up Care 09/15/2023 10:44:14 With:LEXA RODRIGUEZ MD Address: [address] [place] [address] [place] [address]- When:2-4 days [facility] Charleslynne Forman 09-15-2023 Emergency department Discharge summary Discharge Instructions Thank you for allowing [facility] to assist you with your healthcare needs. The following is important discharge information regarding your hospital visit. Diagnosis from Today's Visit COVID-19 Sore throat - Adult Viral illness What to Do Next Instructions from Your Care Team No qualifying data available. Post Acute Orders No qualifying data available. You Need to Schedule the Following Appointments Follow Up with LEXA RODRIGUEZ MD When Within 2-4 days Where: [address] [place] [address]- Allergies Brethine Keflex Latex Procardia (hypotension) amoxicillin codeine (Amoxicillin 08-MAR-2005 05:15:52 penicillin progesterone sulfa drug Medications Please ask your primary doctor or pharmacist before taking any other medication not listed, including over the counter drugs, herbal medications, vitamins and or supplements as they may interact with your home medications. What How Much When Instructions Last Dose New prochlorperazine (Compazine use prochlorperazine ) 10 Milligram by mouth Three (3) times a day as needed for Nausea Duration: 5 Days Printed Prescription Unchanged busPIRone (busPIRone 15 mg oral tablet) 1 tab(s) by mouth Three (3) times a day Unchanged chlorzoxazone (chlorzoxazone 500 mg oral tablet) 1 tab(s) by mouth Four (4) times a day as needed for Migraine headache Unchanged gabapentin (gabapentin 600 mg oral tablet) take 1 tablet by mouth every 8 hours if needed Unchanged hydrOXYzine (hydrOXYzine hydrochloride 50 mg oral tablet) 1 tab(s) by mouth Four (4) times a day as needed for as needed for anxiety Unchanged lamoTRIgine (lamoTRIgine 100 mg oral tablet) 1 tab(s) Unchanged lidocaine topical (lidocaine 5% topical patch) apply 1 patch once daily as directed Unchanged lurasidone (lurasidone 80 mg oral tablet) 1 tab(s) by mouth Daily at bedtime Unchanged metoprolol (metoprolol succinate 25 mg oral TABLET extended release) 1 tab(s) by mouth Once a day Do not crush or chew (controlled release) Unchanged prazosin (Minipress) See instructions 1 mg Oral TID Unchanged traZODone (traZODone 50 mg oral tablet) 1 tab(s) by mouth Daily at bedtime Please take this list to your next doctor s visit. Bring all medications you take, including over the counter medications, herbals and other supplements with you to your doctor s visit. Patients and families are reminded to discard old lists and to update any records with all medication providers or retail pharmacies. Education Materials Viral Syndrome (Adult) A viral illness may cause a number of symptoms such as fever. Other symptoms depend on the part of the body that the virus affects. If it settles in your nose, throat, and lungs, it may cause cough, sore throat, congestion, runny nose, headache, earache and other ear symptoms, or shortness of breath. If it settles in your stomach and intestinal tract, it may cause nausea, vomiting, cramping, and diarrhea. Sometimes it causes generalized symptoms like aching all over, feeling tired, loss of energy, or loss of appetite. A viral illness usually lasts anywhere from several days to several weeks, but sometimes it lasts longer. In some cases, a more serious infection can look like a viral syndrome in the first few days of the illness. You may need another exam and additional tests to know the difference. Watch for the warning signs listed below for when to seek medical advice. Home care Follow these guidelines for taking care of yourself at home: If symptoms are severe, rest at home for the first 2 to 3 days. Stay away from cigarette smoke - both your smoke and the smoke from others. You may use qdzs-zts-dtxyfsq acetaminophen or ibuprofen for fever, muscle aching, and headache, unless another medicine was prescribed for this. If you have chronic liver or kidney disease or ever had a stomach ulcer or gastrointestinal bleeding, talk with your healthcare provider before using these medicines. No one who is younger than 18 and ill with a fever should take aspirin. It may cause severe disease or . Your appetite may be poor, so a light diet is fine. Avoid dehydration by drinking 8 to 12, 8-ounce glasses of fluids each day. This may include water; orange juice; lemonade; apple, grape, and cranberry juice; clear fruit drinks; electrolyte replacement and sports drinks; and decaffeinated teas and coffee. If you have been diagnosed with a kidney disease, ask your healthcare provider how much and what types of fluids you should drink to prevent dehydration. If you have kidney disease, drinking too much fluid can cause it build up in the your body and be dangerous to your health. Lmwt-ufe-kwghpiw remedies won't shorten the length of the illness but may be helpful for symptoms such as cough, sore throat, nasal and sinus congestion, or diarrhea. Don't use decongestants if you have high blood pressure. Follow-up care Follow up with your healthcare provider if you do not improve over the next week. Call 911 Call 911 if any of the following occur: Convulsion Feeling weak, dizzy, or like you are going to faint Chest pain, or more than mild shortness of breath When to seek medical advice Call your healthcare provider right away if any of these occur: Cough with lots of colored sputum (mucus) or blood in your sputum Chest pain, shortness of breath, wheezing, or trouble breathing Severe headache; face, neck, or ear pain Severe, constant pain in the lower right side of your belly (abdominal) Continued vomiting (can t keep liquids down) Frequent diarrhea (more than 5 times a day); blood (red or black color) or mucus in diarrhea Feeling weak, dizzy, or like you are going to faint Extreme thirst Fever of 100.4 F (38 C) or higher, or as directed by your healthcare provider [phone] [employer]. [address] [place] [address]. All rights reserved. This information is not intended as a substitute for professional medical care. Always follow your healthcare professional's instructions. Additional Information VACCINATE! IT SAVES LIVES! Members of the community who have not yet received the COVID-19 vaccine and would like to receive it can visit one of [facility] vaccine clinics. There are many vaccine clinic locations within the [facility]. For locations and available times, please visit [email or web address] It is important to note that some COVID mobile vaccine clinics are held outdoors and may be canceled in rainy or stormy conditions. To learn more about pediatric vaccinations (ages 5-11), we invite you to visit the [facility] webpage. [email or web address] To learn more about the COVID-19 vaccine, we invite you to visit the CDC website for a list of frequently asked questions. https://www.cdc.gov/coronavirus/2 019-ncov/vaccines/faq.html [facility] Patient Portal Access Instructions: Stay connected with your healthcare team and access your personal medical information anytime with the [facility] Patient Portal. If you would like a full copy of your medical records please contact the [facility] Medical Records Department Monday through Monday between 8a.m. and 4:30p.m. Please follow the directions below to access the portal: 1.Access the email account you provided upon registration to the [facility].2.Look for an invitation email from [facility].3.Open the email and access the invitation link: Accept Invitation to [facility].Fill in the required webb to create your account. Sign into www.Funny Or Die with your username and password that you [...] you will allow to register on the [facility] Patient Portal for access to your information. You can also access the [facility] Patient Portal on the StyleSeat cruz. Simply click on Health Records under Health Data and then click on the Summit[employer] logo. HOW TO SAFELY DISPOSE OF PRESCRIPTION [...] Call your local pharmacy or go to http://bit.DesignGooroo/[email or web address] to find one close to you.3.Make use of household items: Use cat litter or old coffee grounds to dispose medications if other options are not available. Mix your drugs with these household products, seal them in an airtight container and throw it into the garbage. [facility]: [phone] to be sure your drugs can be [...] a CHART COPY Signatures Patient Education Materials Viral Syndrome (Adult) Medication Leaflets My discharge plan and instructions have been reviewed and explained to me and I,FERNANDO GUIDO understand my current condition and have read and understand these discharge instructions. I have received a written copy of the plan/instructions. If I have questions, I am aware that I should contact my doctor. Patient/Dispatcher Service Chief Signature: Date/Time: Relationship to Patient: ____ Witness Name/Signature: Date/Time: [facility] 09-05-2023 Instructions Shashi Rai APRN.HARSH - 09/05/2023 4:54 PM EST OARRS checked. [...] in 1 month. documented in this encounter [facility] 09-05-2023 Miscellaneous Notes I spoke to Eileen and informed her there has been a time change for the September 25 procedure to 11 and not 10. She verbalized understanding. Brandy September 05, 2023 4:04 PM documented in this encounter [facility] 09-05-2023 Note HNO ID: [id number] Author: SHASHI RAI APRN.HARSH Service: ? Author Type: Nurse Practitioner Type: Progress Notes Filed: 09/05/2023 16:54 Note Text: This video visit was performed via Akoha Video Visit. Patient consented to receive health care services via virtual visit for this encounter Provider Location: [facility] Patient Location: Patient Home or Place of Residence Risks, benefits, and limitations of receiving care virtually were discussed with the patient. The patient expressed understanding and is willing to proceed. 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 [facility] 09-05-2023 Miscellaneous Notes Items addressed in this encounter: Triviala Encounter Scheduled virtual follow up appt with Dante Able to close encounter. Iona Luna MA September 05, 2023 3:27 PM 3:27 PM documented in this encounter [facility] 09-05-2023 History of Present illness Narrative This video visit was performed via Triviala Zoom Video Visit. Patient consented to receive health care services via virtual visit for this encounter Provider Location: [facility] Patient Location: Patient Home or Place of Residence Risks, benefits, and limitations of receiving care virtually were discussed with the patient. The patient expressed understanding and is willing to proceed. 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 Shashi Rai APRN.PHOTOENGRAVING MACHINE OPERATOR/TENDER documented in this encounter [facility] 08-31-2023 Miscellaneous Notes Patient name and was confirmed at initiation of discussion. Fernando Guido's Multi-Cancer panel through [employer] was negative for a pathogenic variant. No BRCA1 or BRCA2 mutations were identified, though we did not obtain a copy of her affected relatives' genetic test results. 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 No changes are recommended to her management, based on this result. Please see OceanTailer message for further discussion. Teodora Moran Alli Licensed, Certified Genetic Counselor documented in this encounter [facility] 08-29-2023 Miscellaneous Notes She will need another office appointment with Dante or me to discuss other options. At this point in time, I am not certain what the other options would be. Pt does not follow up until 10/25/23. Rhianna Tomlinson RN August 29, 2023 1:24 PM documented in this encounter [facility] 08-23-2023 Note HNO ID: [id number] Author: LEXY BISHOP RT(R) Service: Radiology Author [...] PATIENT PRESENTS WITH AN IMPLANTABLE OR ATTACHED ELECTRONIC TRAIN CONTROL TECHNICIAN: No ALLERGIES: Reviewed and unchanged CONTRAST ALLERGY: NO. EXAM: MRI - CONTRAST TYPE: GROUP II PERIPHERAL IV DATA: Ambulatory: SEE NURSE NOTE RADIOLOGY DEPARTMENT: MR; Exam(s) Completed: Chest: Breast SIGNATURE: RT Haley(R) PATIENT NAME: Fernando Guido DATE: August 23, 2023 TIME: 3:41 PM [facility] 08-22-2023 Note HNO ID: [id number] Author: GORDO LAFLEUR MD Service: ? Author [...] given written instructions to follow up at [facility] in the next 4 to 6 weeks for further plan of care and overall evaluation. COMMENTS: Repeat in 4 weeks [facility] 08-09-2023 Note HNO ID: [id number] Author: TEODORA MORAN LGC Service: ? Author Type: Genetic Counselor Type: Progress Notes Filed: 09/12/2023 12:09 Note Text: [facility] Consultation Note Genetic Counselor: Teodora Moran, MS, [facility] Patient: Fernando Guido Patient Name and confirmed at initiation of visit. This visit was conducted virtually via [employer]py[employer]. I have communicated my name and active licensure. The patient's identity and physical location were verified at the time of this visit. Either the patient or their legal employee relations representative has been informed of the risks [...] Anxiety Asthma Bipolar disorder (HCC) Chichi Alejo [facility] type 1 Blind right eye post [...] DX W/COLLJ SPEC WHEN PFRMD 06/12/2017 Colonoscopy [facility] - normal - Bx negative ESOPHAGOGASTRODUODENOSCOPY TRANSORAL DIAGNOSTIC 06/12/2017 EGD - duodenitis, gastritis, superfical gastric ulcers, HYSTERECTOMY 11/2018 TH and tubes, benign pathology REMOVAL OF OVARY(S) Left 05/2020 benign path- see 08/13 [facility] TUBAL LIGATION HX CANCER SURVEILLANCE HISTORY: Mammograms: [...] (Fibromylagia) Mother Seizures Father Heart Father 39 [place] other (autism, fragile x) Sister fathers side [...] other (healthy) Daughter (more content not included)... [facility] 07-25-2023 Note HNO ID: [id number] Author: Gordo Lafleur MD Service: ? Author [...] given written instructions to follow up at [facility] in the next 4 to 6 weeks for further plan of care and overall evaluation. COMMENTS: Repeat in 4 weeks [facility] 07-21-2023 Note HNO ID: [id number] Author: Stone Alvarez APRN.CNP Service: ? 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) depression Preeclampsia PTSD (post-traumatic stress disorder) Reactive attachment disorder Seizure ([facility]) psychogenic non epileptic seizures Tobacco use Patient [...] DX W/COLLJ SPEC WHEN PFRMD 06/12/2017 Colonoscopy [facility] - normal - Bx negative ESOPHAGOGASTRODUODENOSCOPY TRANSORAL DIAGNOSTIC 06/12/2017 EGD - duodenitis, gastritis, super (more content not included)... [facility] 06-28-2023 Note HNO ID: [id number] Author: Gordo Lafleur MD Service: ? Author Type: Anesthesiologist Type: Progress Notes Filed: 06/28/2023 9:35 AM Note Text: Blackon was used to dictate this note and [...] Virgen. Follow-up office visit in 4 months. [facility] 06-28-2023 History of Present illness Narrative Blackon was used to dictate this note and [...] in 4 months. documented in this encounter [facility] 06-21-2023 Note HNO ID: [id number] Author: Tristan Khan MD Service: ? Author Type: Physician Type: Progress Notes Filed: 06/23/2023 11:13 AM Note Text: Virtual visit with me via [employer] FAX to pharm last seen by me 11/2021 distance reviewed interval history I have communicated my name and active licensure. The patient's identity and physical location were verified at the time of this visit. Either the patient or their legal employee relations representative has been informed of the risks [...] female starts school next year lives in [place] due a stroke she had 12/2022 (said from hear) had 5 children one here for Women's Health Evaluation [facility] for virtual follow up on HT off ET ran out off last year now 2 yrs clean after relapse has bloody breast had breast ctr appt for ain told needs brca gene testing s/p ovaries was on oral P for sleep [...] past. All losses were followed by a corrections unit supervisor and the children delivered at home and [...] MGM Personal history of breast biopsy: no PUMP ASSEMBLER HPI Last menstrual period. Patient's last menstrual period was 11/04/2018. Age at menopause onset: 25 Menopausal symptom assessment: Vasomotor symptoms: yes better on ET still has one ovary Urinary incontinence AND symptoms: no incontinence CARDIOVASCULAR Lipid AND CV risk assessment: exsmoker no DVT no HTN no DM no [place] no stroke BONE STATUS Discussed calcium in [...] (Fibromylagia) Mother Seizures Father Heart Father 39 [place] other (autism, fragile x) Sister fathers side other (SLE) Sister other (Down syndrome) Sister mother's side ADD/ADHD Brother mother's side Bipolar disorder Brother Autism Brother other (Autism/paternal 1/2) Brother father s side Alcohol/Drug Brother mother's side Bipolar disorder Brother Paranoid behavior Brother Bipolar disorder Brother other (suicide) Brother Bipolar disorder Brother Cervical Cancer Maternal Grandmother Thyroid Maternal Grandmother (more content not included)... [facility] 06-21-2023 History of Present illness Narrative Virtual visit with me via [employer] FAX to pharm last seen by me 11/2021 distance reviewed interval history I have communicated my name and active licensure. The patient's identity and physical location were verified at the time of this visit. Either the patient or their legal employee relations representative has been informed of the risks [...] female starts school next year lives in [place] due a stroke she had 12/2022 (said from hear) had 5 children one here for Women's Health Evaluation [facility] for virtual follow up on HT off ET ran out off last year now 2 yrs clean after relapse has bloody breast had breast ctr appt for ain told needs brca gene testing s/p ovaries was on oral P for sleep [...] past. All losses were followed by a corrections unit supervisor and the children delivered at home and [...] MGM Personal history of breast biopsy: no PUMP ASSEMBLER HPI Last menstrual period. Patient's last menstrual period was 11/04/2018. 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 [...] DX W/COLLJ SPEC WHEN PFRMD 06/12/2017 Colonoscopy [facility] - normal - Bx negative ESOPHAGOGASTRODUODENOSCOPY TRANSORAL DIAGNOSTIC 06/12/2017 EGD - duodenitis, gastritis, superfical gastric ulcers, HYSTERECTOMY 11/2018 TH and tubes, benign pathology REMOVAL OF OVARY(S) Left 05/2020 benign path- see 08/13 msg TUBAL LIGATION HX Social History Tobacco Use Smoking status: Every Day Packs/day: 1.5 Types: Cigarettes Start date: 07/28/2006 Smokeless tobacco: Former Types: Chew Tobacco comments: 2 packs weekly Substance Use Topics Alcohol use: Yes Comment: occ Drug use: Not Currently Types: Amphetamines, Benzodiazepines, [...] re-evaluation. Living Will & Medical Power of Software Applications Specialist recommended-she has Mammogram discussed age 44 NEEDS eval Colon cancer screening by age 45 & every 5-10 years. Bone mineral density age 44 IMMUNIZATIONS: per pcp LABS per PCP: Sincerely, Tristan Khan MD (Signed electronically to expedite mailing) c: Fernando Mayo documented in this encounter [facility] 06-19-2023 Note HNO ID: [id number] Author: Eva Shin APRN.PHOTOENGRAVING MACHINE OPERATOR/TENDER Service: ? Author Type: Nurse Practitioner Type: [...] has hives and seizures Tessalon [Benzonata* Rash Ehzzaekp-6-[id number] Anti* Contraindication-Medical Surgical Had CVA 12/2022 Zofran [Ondansetron* Swelling UNIVERSAL PROTOCOL / SAFETY CHECKLIST Procedure: Onabotulinum toxin A for migraine Informed Consent Consent Obtained: Written [place] Protocol A moment to CARE was completed [...] visibility. No medica (more content not included)... [facility] 06-19-2023 Instructions Eva Shin APRN.PHOTOENGRAVING MACHINE OPERATOR/TENDER - 06/19/2023 4:12 PM EST Instruction after [...] it does not, call our office at [phone] for further instructions. [facility] ATTENTION Clinical Depression What you need [...] Call the National Suicide Hotline or Call 735 (2) If you are already in treatment, make sure you contact and update your doctor or therapist. (3) Call the [facility] Department of Psychiatry & Psychology at or (ask for Psychiatry & Psychology appointments) (4) Call your primary care doctor to set up an appointment. (5) Call to set-up an appointment at one of the mental healthcare facilities in the [facility] (telephone numbers listed below). Mental Health Resources in the [facility] (in [place] unless otherwise noted): Radha - [address] [place] [phone] [facility] - [address] [facility] [phone] Primitivo Garcia - [address] [phone] [facility] - [address] [phone] [facility] - [address] [phone] [facility] - [address] [phone] [facility] - [address] [facility] - [phone] [facility] - [phone] [facility] - [address] [place] [facility] [phone] [facility] - [address] [phone] [facility] - [address] [facility]. [place] [phone] [facility] - [phone] [facility] - [phone] [facility] [place] [phone] [facility] - [address] [place] [phone] [facility] [address] [facility] [phone] [facility] [phone] [facility] - [address] [facility] [phone] [facility] - [address] [phone] [facility] Department of Psychiatry & Psychology. Appointments: or (ask for Psychiatry & Psychology appointments) If you are feeling suicidal, please call the National Suicide Hotline or Call 911 documented in this encounter [facility] 06-19-2023 History of Present illness Narrative [...] days/month: 10 (240 headache-free hours) Migraine severity: 1010 Patient reduction in overall migraine days: Yes [...] has hives and seizures Tessalon [Benzonata* Rash Kdvtdiml-[id number]-Ty4 Anti* Contraindication-Medical Surgical Had CVA 12/2022 Zofran [Ondansetron* Swelling UNIVERSAL PROTOCOL / SAFETY CHECKLIST Procedure: Onabotulinum toxin A for migraine Informed Consent Consent Obtained: Written [place] Protocol A moment to CARE was completed [...] applicable Written Consent Obtained: Written LOT #: [id number] Expiration Date: Month: 2 Year: 2025 Injection Sites Left (Units) Left (Sites) Right (Units) Right (Sites) TOTAL (Units) 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 5 1 5 1 10 Procerus Units: [...] (Abilify) Bupropion (Wellbutrin) Escitalopram (Lexapro) Fluoxetine (Prozac) [place] (Eskalith, Lithobid) Antiemetics Ondansetron Prochlorperazine Promethazine Reglan (Metoclopramide) Anti-Migraine Rizatriptan (Maxalt) Sumatriptan (Imitrex, Sumavel) Blood Pressure Metoprolol (Lopressor,Toprol XL) Botulinum Toxin Onabotulinum Toxin A (Botox) Muscle Relaxer Baclofen (Lioresal) Cyclobenzaprine (Flexeril) Methocarbamol (Robaxin) Sleep Aids Melatonin Trazodone (Desyrel) Other Medications Diphenhydramine (Benadryl) Prednisone Over the Counter Medications Acetaminophen (Tylenol) Ibuprofen (Advil, Motrin) Naproxen sodium (Aleve) Eva Shin APRN.PHOTOENGRAVING MACHINE OPERATOR/TENDER Answers submitted by the patient for this [...] month? : 5 documented in this encounter [facility] 06-09-2023 Note HNO ID: [id number] Author: Srinivas Francisco RN Service: Care Management Author Type: Registered Nurse Type: Care Mgt Progress Note Filed: 06/09/2023 11:48 AM Note Text: CARE MANAGEMENT PROGRESS NOTE SERVICE DATE: 06/09/2023 SERVICE TIME: 11:45 AM LOS: [address] Waters, pt is cleared psychologically and can be d/c back to [facility] from ED. Per nursing staff, attempted to call report, was advised by [facility] that pt will need a new precert. Called [facility] admissions, and advised that pt has not been admitted to the hospital, was evaluated in the ED and will be discharged from the ED, they confirm that pt will not need a new precert. ED staff notified they can call report and d/c pt back to [facility]. SIGNATURE: Srinivas Francisco RN PATIENT NAME: Fernando Guido DATE: June 09, 2023 TIME: 11:45 AM PAGER/CONTACT #: [phone] [facility] 06-09-2023 Note HNO ID: [id number] Author: Matthew Monahan, PhD Service: Psychology Author Type: Psychologist Type: Progress Notes Filed: 06/09/2023 11:35 AM Note Text: Reason for referral: Depression. The patient is currently in the emergency department at [facility]. I had seen the patient on April [...] circumstances that led to her transfer to [facility] from the prison where she was receiving rehabilitation. She had been at the prison[facility], since her discharge from this facility May 02, 2023. She informed me that there were some concerns regarding her insurance company approving continue to stay at the prison. Apparently the issues were not resolved during a conversation she had with the social science research assistant at the prison. [facility] who [facility] [place] [place] was seen for intake at the prison by a worker from [facility] , a mental health provider group. She was pink slipped for suicidal ideation. The [facility]'s [facility] [place] has her on buspirone 15 mg 3 [...] suicidal ideation to the staff member from [facility]. She told me what she told the mental health provider literally was that if she was discharged from the prison to the street she knows she would use the drugs and because she had not used drugs in a long time those drugs might be fatal. She told me she was afraid if her insurance did not cover her stay at the [facility] that homeless shelters might not accept her [...] coordinator and I also spoke to the social science research assistant in the emergency department. My conclusion was that the patient was not in need of inpatient psychiatric treatment and can be released back to the prison. She said she would cooperate and return to the prison if they accepted her. Patient asked me if she could use her phone and I approved that. [facility] 06-08-2023 Miscellaneous Notes BEHAVIORAL HEALTH INTAKE NOTE SERVICE DATE: 06/08/23 SERVICE TIME: 18:42 Nature of the crisis: SI Presenting Problem: Fernando Guido is a 28 year old female brought in to [facility] for SI. Per ED: Patient presents with: Suicidal Ideation. Pt pink slipped here from [facility] for suicidal thoughts. Pt does not have a specific plan but does report she feels if she were to be discharged from [facility] that she would find heroin and OD. Pt has bed ready at [facility], just needs med clearance Patient [...] her cultural beliefs and stated she was Catholic and would not change. Staff removed her phone from her possession, and she escalated to spitting, threatening and struggling with staff. Pt was medicated at that time (Droperidol injection 5 mg 16:30pm) and was placed in 4 pt restraints. RN was planning to release PT from one restraint to allow Pt to eat a meal. RN asked core analysis operator to call back in one hour to give Pt time to calm down and eat . After one hour Pt initially declined core analysis operator interview and then changed her mind and engaged in the assessment. Per : Pt current staying and receiving care at [facility] following a stroke. Decline in MH recently. [...] Pt at first refused to speak to core analysis operator and then changed mind. She presented with flat affect, poverty of speech and was withdrawn. Many questions were replied to with the statement, I don t want to think about that or It s too much to go into . She does report being depressed currently but denied SI and HI. I know [id number] said I was suicidal, but I m [...] reports a desire to return to the prison and continue to get care for her medical and physical ailments. I have a bunch of health stuff . 06/09/2023: Pt was here at [facility] as in patient from 04/27/2023 to [...] mother abused drugs. Her father was a live truck operator and did not lead a stable life. [...] psychiatric treatment at the counseling center in [facility]. She had been in counseling often throughout her life. She is planning on returning to counseling 05/02/2023 pt was admitted to the [facility]. 06/09/2023 09:55 Call to [facility] spoke to Colleen who stated pt does her own care and ADL'S she does not use a perry lift she is able to transfer on her own. Uses a wheel chair. 06/09/2023 11:[address] Kathleen note: Reason for referral: Depression. The patient is currently in the emergency department at [facility]. I had seen the patient on April [...] circumstances that led to her transfer to [facility] from the prison where she was receiving rehabilitation. She had been at the [facility], [facility], since her discharge from this facility May 02, 2023. She informed me that there were some concerns regarding her insurance company approving continue to stay at the prison. Apparently the issues were not resolved during a conversation she had with the social science research assistant at the prison. Patient who has been receiving mental health treatment at the counseling center in [place], [place] was seen for intake at the prison by a worker from [facility] , a mental health provider group. She was pink slipped for suicidal ideation. [facility] [place] has her on buspirone 15 mg 3 [...] suicidal ideation to the staff member from [facility]. She told me what she told the mental health provider literally was that if she was discharged from the prison to the street she knows she would use the drugs and because she had not used drugs in a long time those drugs might be fatal. She told me she was afraid if her insurance did not cover her stay at the [facility] that homeless shelters might not accept her [...] coordinator and I also spoke to the social science research assistant in the emergency department. My conclusion was that the patient was not in need of inpatient psychiatric treatment and can be released back to the prison. She said she would cooperate and return to the prison if they accepted her. SOCIAL HISTORY: Social History Tobacco Use Smoking status: Every Day Packs/day: 1.5 Types: Cigarettes Start date: 07/28/2006 Smokeless tobacco: Former Types: Chew Tobacco comments: 2 packs weekly Substance Use Topics Alcohol use: Yes Comment: occ Drug use: Not Currently Types: Amphetamines, Benzodiazepines, [...] MEDICATION COMPLIANCE: Yes SOCIAL INFORMATION: Living Arrangements: Residential Facility Name/ Phone #: [facility] Satisfaction with Living Arrangements: Pt says it is helping her medical issues and she would like to return Does Patient Have Minor Children for Whom He/She is Responsible?: No (Children were removed from her care years ago per ) Education Level: High School Diploma/GED Employment Status: Unemployed Is the Patient a [place]: Yes Details: [employer] per Stressors: Abuse/Neglect, Family, [...] Legal History How Legal Issues Were Verified: [facility] [employer] Or Picker of Courts Website, U.[place] Department of Justice Sex Offender Website, [facility] [employer]icker of Courts Website Gender Specific Test: Negative Sex at Time of : Female Patient Identified Gender: Female Preferred Pronoun: She/Her/Hers Sexual Orientation: Heterosexual Cultural/Scientologist Concerns Cultural Issues or Concerns That Might Affect Treatment: Catholic OBSERVATIONS Level of Consciousness Alert: Yes Orientation: Person, Place, Time, Situation Physical Appearance Appears: Average Build, Appears Stated Age, Casual, Appropriate Speech Rate: Slowed Volume: Appropriate Quality: Appropriate to Topic Quantity: Poverty of Speech Thought Processes Thought: Guarded, Reliable Historian/Director Hair Thought Content/Perceptions Delusions: None Observed Hallucinations: Patient Denies Illusions: Patient Denies Derealization: No Depersonalization: No Memory: Intact Recent Cognition Impairment: None Intelligence Evaluation: Average Mood & Affect Patient Described Mood: Very depressed Other Director Hair Described Mood: RN and Spouse report flat affect,, depression and agitation Director Hair: RN Neeru and Spouse Marcos Observed/Reported: Depressed, [...] Bowels and Bladder MENTAL HEALTH SERVICES: Agency/Organization: [place] [address] Inpatient Mental Health Treatment History: Over 89 [...] Anxiety and/or Panic Family History: Suicidal Behavior, [place] Psychiatric Diagnoses Requiring Hospitalization (Pt would [...] health and mood Risk Indicators: stay in prison, health concerns, trauma hx, MH hx Protective Factors: Souse and is receiving care in prison Access to Lethal Means: No Collateral Sources Used and Relevant Information Obtained: Marcos Specific Assessment Data to Support Risk Determination Rationale for Actions Taken and Not Taken: Pt lacks insight and judgment and was combative and aggressive in ED, charges pending, Pt reports severe depression at this time and was given pink slip by [id number] Communication of Current Risk Stratification to: Current Medical Providers: Dr Richter Date 06/09/2021 Time 07:42 AM Psychiatrist aviation support equipment repairer: Name: DR Kathleen Date: 06/09/2023 Time: 11:21am INTERVENTIONS Psychiatry Consult Completed in This Episode of Care: Yes Psych Consult Date: 06/09/23 Psych Consult Time: 1121 Location: ED Provider Name: Dr Kathleen Sources of Information: Patient, Current Provider [facility]) Patient Assessed by Intake via: Face to Face Coordination of care with: ED RN, ED LIP, Current Providers ([facility]) Interventions: Therapeutic Interventions Therapeutic Interventions: Crisis Intervention, Crisis Assessment Goals/Objectives: Discharge from hospital with referrals/linkage to supportive services/current providers DISPOSITION & PLAN: Patient Assessed by Intake via: Face to Face Patient stated goals: Goals: To not be hospitalized/be discharged from ED Coordination of Care with: ED RN, ED LIP, Current Providers ([facility]) Assessment/Impressions: Discharge Plan: Secure an inpatient bed [...] Age or have a Guardian/Healthcare Power of Software Applications Specialist?: No Disposition Date: 06/09/23 Disposition Time: 1153 SIGNATURE: SANJANA Bauer PATIENT NAME: Fernando Guido DATE: June 08, 2023 TIME: 7:28 PM documented in this encounter [facility] 06-04-2023 Hospital Discharge instructions Patient Education [...] insufficiency or varicose veins, don't sit or internal grinder tender one place for long periods of time. [...] or use an increased number of pillows [id number] The [employer]. [address] [place] [address]. All rights reserved. This information is not intended as a substitute for professional medical care. Always follow your healthcare professional's instructions. Follow Up Care 06/03/2023 20:49:33 With:LEXA RODRIGUEZ MD Address: [address] [place] [address] [place] [address]- When:2-4 days Comments:Return to ED if symptoms worsen [facility] 06-03-2023 Emergency department Discharge summary Discharge Instructions Thank you for allowing [facility] to assist you with your healthcare needs. The following is important discharge information regarding your hospital visit. Diagnosis from Today's Visit Edema of lower leg Lower leg pain-swelling What to Do Next Instructions from Your Care Team Discharge ED Outpatient Vascular Lab - Ordered -- Test Requested: Bilateral LE Doppler US for DVT, Lower extremity, Bilateral, Test Reason: Swelling, Mon-Fri 6am-6:30pm: Call [phone] to schedule a same day appointment for testing or report to the Vascular Lab at 6:00 AM. Please be aware that the... Post Acute Orders No qualifying data available. You Need to Schedule the Following Appointments Follow Up with LEXA RODRIGUEZ MD When Within 2-4 days Why: Return to ED if symptoms worsen Where: [address] [facility], [place] [address]- Allergies Brethine Keflex Latex Procardia (hypotension) amoxicillin [...] insufficiency or varicose veins, don't sit or internal grinder tender one place for long periods of time. [...] or use an increased number of pillows [phone] [employer]. [address] [place] [address], [place] [address]. All rights reserved. This information is not intended as a substitute for professional medical care. Always follow your healthcare professional's instructions. Additional Information VACCINATE! IT SAVES LIVES! Members of the community who have not yet received the COVID-19 vaccine and would like to receive it can visit one of [facility] vaccine clinics. There are many vaccine clinic locations within the [facility]. For locations and available times, please visit [email or web address].g [email or web address] It is important to note that some COVID mobile vaccine clinics are held outdoors and may be canceled in rainy or stormy conditions. To learn more about pediatric vaccinations (ages 5-11), we invite you to visit the [facility] webpage. https://www.akronPlan B Labss.org/pa ges/4916-Iaupw-Snfstuajhti-Freque wqlj-Pideo-Qnpspieeb.html To learn more about the COVID-19 vaccine, we invite you to visit the CDC website for a list of frequently asked questions. https://www.cdc.gov/coronavirus/2 019-ncov/vaccines/faq.html [facility] Patient Portal Access Instructions: Stay connected with your healthcare team and access your personal medical information anytime with the [facility] Patient Portal. If you would like a full copy of your medical records please contact the [facility] Medical Records Department Monday through Monday between 8a.m. and 4:30p.m. Please follow the directions below to access the portal: 1.Access the email account you provided upon registration to the hospital.2.Look for an invitation email from [facility].3.Open the email and access the invitation link: Accept Invitation to [facility].Fill in the required webb to create your account. Sign into [email or web address].Funny [email or web address] Die with your username and password that you [...] you will allow to register on the [facility] Patient Portal for access to your information. You can also access the [facility] Patient Portal on the [employer] cruz. Simply click on Health Records under Health Data and then click on the [employer] logo. HOW TO SAFELY DISPOSE OF PRESCRIPTION [...] Call your local pharmacy or go to http://bit.DesignGooroo/4E3Ih6i to find one close to you.3.Make use of household items: Use cat litter or old coffee grounds to dispose medications if other options are not available. Mix your drugs with these household products, seal them in an airtight container and throw it into the garbage. [facility]: [phone] to be sure your drugs can be [...] aware that I should contact my doctor. Patient/Dispatcher Service Chief Signature: Date/Time: Relationship to Patient: ____ Witness Name/Signature: Date/Time: [facility] 06-03-2023 Note SINUS TACHYCARDIA Electronic Signature: MD SANYA PERRIN MD 06/03/2023 21:41:26 [facility] 06-03-2023 Note ORIGINAL EXAMINATION: ONE XRAY [...] 06/03/2023 9:29:58 PM Ordering Provider: SANYA PERRIN [facility] 05-27-2023 Hospital Discharge instructions Patient Education [...] delay the healing process. You may use zvjx-djx-qntmfgp pain medicine to control pain, unless another [...] or as directed by your healthcare provider [phone] [employer]. [address] [place] [address], [place] [address]. All rights reserved. This information is not intended as a substitute for professional medical care. Always follow your healthcare professional's instructions. Follow Up Care 05/27/2023 11:18:50 With:LEXA RODRIGUEZ MD Address: [facility] [place] [address]- When:2-4 days [facility] 05-27-2023 Emergency department Discharge summary Discharge Instructions Thank you for allowing [facility] to assist you with your healthcare needs. [...] RODRIGUEZ MD When Within 2-4 days Where: [facility] [address] [place], [place] [id number]- Allergies Brethine Keflex Latex Procardia (hypotension) amoxicillin [...] delay the healing process. You may use nzlx-khz-qngbqtn pain medicine to control pain, unless another [...] or as directed by your healthcare provider [phone] [employer]. [address] [place] [address], [place] [address]. All rights reserved. This information is not intended as a substitute for professional medical care. Always follow your healthcare professional's instructions. Additional Information VACCINATE! IT SAVES LIVES! Members of the community who have not yet received the COVID-19 vaccine and would like to receive it can visit one of [facility] vaccine clinics. There are many vaccine clinic locations within the [facility]. For locations and available times, please visit [email or web address].g ov/. It is important to note that some COVID mobile vaccine clinics are held outdoors and may be canceled in rainy or stormy conditions. To learn more about pediatric vaccinations (ages 5-11), we invite you to visit the [facility] webpage. https://www.[facility].org/pa ges/8682-Crkjs-Aomqyfuxuis-Freque agqo-Kyunc-Vixefqekl.html To learn more about the COVID-19 vaccine, we invite you to visit the CDC website for a list of frequently asked questions. https://www.cdc.gov/coronavirus/2 019-ncov/vaccines/faq.html [facility] Patient Portal Access Instructions: Stay connected with your healthcare team and access your personal medical information anytime with the [facility] Patient Portal. If you would like a full copy of your medical records please contact the [facility] Medical Records Department Monday through Monday between 8a.m. and 4:30p.m. Please follow the directions below to access the portal: 1.Access the email account you provided upon registration to the [facility].2.Look for an invitation email from [facility].3.Open the email and access the invitation link: Accept [facility]itation to [facility]4.Fill in the required webb to create your account. Sign into www.Funny Or Die with your username and password that you [...] you will allow to register on the [facility] Patient Portal for access to your information. You can also access the [facility] Patient Portal on the [employer]at cruz. Simply click on Health Records under Health Data and then click on the [employer] logo. HOW TO SAFELY DISPOSE OF PRESCRIPTION [...] Call your local pharmacy or go to http://bit.DesignGooroo/6Y2Jb2d to find one close to you.3.Make use of household items: Use cat litter or old coffee grounds to dispose medications if other options are not available. Mix your drugs with these household products, seal them in an airtight container and throw it into the garbage. Call [facility]: [phone] to be sure your drugs can be [...] aware that I should contact my doctor. Patient/Dispatcher Service Chief Signature: Date/Time: Relationship to Patient: ____ Witness Name/Signature: Date/Time: [facility] 05-06-2023 Note HNO ID: [id number] Author: Note, Interface Service: ? Author Type: ? Type: Progress Notes Filed: 05/06/2023 5:59 AM Note Text: Epic Scheduled Downtime: 05/06/2023 1:00:00 AM to 05/06/2023 1:28:00 AM [facility] 05-02-2023 Note HNO ID: [id number] Author: Jacinto Herron LISW Service: Care Management Author Type: Breakdown Man Type: Care Mgt Progress Note Filed: 05/02/2023 3:58 PM Note Text: Summary: Discharge Note CARE MANAGEMENT DISCHARGE NOTE SERVICE DATE: May 02, 2023 SERVICE TIME: 3:18 PM Admission Date: 04/27/2023 LOS: 0 days Discharge Arrangement Services Arranged Provider Name: [facility] Caregiver Assessment Transportation Arrangements Transportation Arrangements: [employer] and Phone #:: Cristin Ro [phone] Date of Trip: 05/02/23 Time of Trip: 2100 Type of Service: Wheelchair Is Patient Medicaid Pending?: No Was transportation financial coverage discussed with family?: Patient;Spouse Victim Advocate Location: [facility] Destination: [facility] Financial Care Management Responsibility: None Handoff Communication: Additional Information: Patient to discharge this date at skilled level of care to [facility]. Pt notified of d/c plan, still in agreement with d/c plan. Nurse report number given, d/c packet on chart, PASRR completed and facility notified. Pt notified of potential OOP cost for transportation, stated understanding. Case closed SIGNATURE: PAULA Breaux PATIENT NAME: Fernando Guido DATE: May 02, 2023 TIME: 3:18 PM CONTACT #: [phone] -- [facility] 05-02-2023 Note HNO ID: [id number] Author: Jesusita Gregory Service: Care Management Author Type: ? Type: Care Mgt Progress Note Filed: 05/02/2023 2:15 PM Note Text: [facility] PRECERT NOTE [facility] [place] approved Nursing Home Facility for [facility]. Precert approved through 05/04. PER Elia Roth precert for [facility] is APPROVED for 5 days 05/02 to 05/06 must admit by 05/04 REF# [id number] SIGNATURE: Jesusita Gregory DATE: May 02, 2023 TIME: 2:14 PM [facility] 05-02-2023 Note HNO ID: [id number] Author: Jacinto Herron LISW Service: Care Management Author Type: Breakdown Man Type: Care Mgt Progress Note Filed: 05/02/2023 11:33 AM Note Text: Summary: Discharge Planning SYSTEMS PROGRAMMER ANALYST notified pt of accepting facilities and to verify FOC. Pt chose [facility]. Pre-cert started, to be pending. Pt will need Auth, PASRR completed, and transport arranged prior to discharge. Will follow as needed. [facility] 05-01-2023 Note HNO ID: [id number] Author: Dat Vallejo MD Service: Hospital Medicine [...] -- 04/27/23 2245 activity - mobilize [place] ([place]) VTE Prophylaxis: VTE prophylaxis appropriate SIGNATURE: Dat Vallejo MD PATIENT NAME: Fernando Guido DATE: May 01, 2023 TIME: 04:31 PM [facility] 05-01-2023 Note HNO ID: [id number] Author: Jacinto Herron LISW Service: Care Management Author Type: Breakdown Man Type: Care Mgt Progress Note Filed: 05/01/2023 2:19 PM Note Text: Summary: Discharge Planning SYSTEMS PROGRAMMER ANALYST continuing to follow for d/c planning needs. Patient is from home with spouse, requires much assistance with ADLs at home with spouse assistance, pt and spouse are able to arrange transportation as needed. Pt came in for right sided weakness, she does have hx of many psych dx. PT/OT evaled pt and recommended SNF. Pt gave original SNF choices for [facility], [facility] [place] [facility]. Pt is still awaiting acceptance of SNF. Many SNFs have denied, awaiting further responses as able. Pt stated that if there are no accepting SNFs in original area of preference, to send a blanket referral to [facility]. The pt will need updated pt/ot notes and pre-cert started pending accepting facility. Requested therapy priority this date. Will continue to follow for d/c needs. Update: placement arrangement continues to remains difficult for this patient, combined with this Monday being a holiday for some SNF admissions. [facility] and [facility] are to be reviewing referrals at this time. Pt would now like to include [facility], tasked in [facility] and [facility] are reviewing. [facility] to complete an on-site. The pt was made aware of updates and stated understanding. SYSTEMS PROGRAMMER ANALYST encouraged pt to start considering possibility of home d/c with [facility], but she does not want to do that if at all possible due to lack of assistance with ADLs at home. Will continue to follow for difficult d/c planning needs. [facility] 04-30-2023 Note HNO ID: [id number] Author: Dat Vallejo MD Service: Hospital Medicine [...] Prophylaxis/Anticoagulants 04/27/23 2245 activity - [place]ize [place] ([place] VTE Prophylaxis: VTE prophylaxis appropriate SIGNATURE: Dat Vallejo MD PATIENT NAME: Fernando Guido DATE: April 30, 2023 TIME: 03:43 PM [facility] 04-30-2023 Note HNO ID: [id number] Author: Matthew Monahan, PhD Service: Psychology Author [...] mother abused drugs. Her father was a live truck operator and did not lead a stable life. [...] psychiatric treatment at the counseling center in [facility]. She had been in counseling often throughout her life. She is planning on returning to counseling. [facility] 04-29-2023 Note HNO ID: [id number] Author: Dat Vallejo MD Service: Hospital Medicine [...] metoprolol Medication and Non-Pharmacologic VTE Prophylaxis/Anticoagulants 04/27/23 4420 activity - [place] VTE Prophylaxis: VTE prophylaxis appropriate SIGNATURE: Dat Vallejo MD PATIENT NAME: Fernando Guido DATE: April 29, 2023 TIME: 04/29/23 PM [facility] 04-29-2023 Note HNO ID: [id number] Author: Matthew Monahan, PhD Service: Psychology Author Type: Psychologist Type: Progress Notes Filed: 04/29/2023 12:58 PM Note Text: Reason for referral: Evaluate for conversion disorder. I reviewed the patient's records and met with her. The patient was seen on . She informed me that she was feeling [...] a psychiatrist at the counseling center in [place]. She does not see a counselor. She [...] here tomorrow I will continue to assess. [facility] 04-28-2023 Note HNO ID: [id number] Author: Dat Vallejo MD Service: Hospital Medicine [...] metoprolol Medication and Non-Pharmacologic VTE Prophylaxis/Anticoagulants 04/27/23 8262 activity - [place]TE Prophylaxis: VTE prophylaxis appropriate SIGNATURE: Dat Vallejo MD PATIENT NAME: Fernando Guido DATE: April 28, 2023 TIME: 6:43 PM [facility] 04-28-2023 Note HNO ID: [id number] Author: Jacinto Herron LISW Service: Care Management Author Type: Breakdown Man Type: Care Mgt Progress Note Filed: 04/28/2023 3:19 PM Note Text: Summary: Discharge Planning CARE MANAGEMENT PROGRESS NOTE SERVICE DATE: 04/28/2023 SERVICE TIME: 3:17 PM LOS: 0 days [place] of Choice Given: Yes Level of Care Discussed: Nursing Home Facility;Inpatient Rehab Facility;Home Care Financial Disclosure Provided: Yes Provider List: Rehab Facility;Nursing Home Facility;Home Care Provider list within the patient's requested geographic area shared with the patient/family: Yes within: 20 miles of zip code: [address] Quality and resource use metrics shared with the patient that are relevant to the patient's goals of care and treatment preferences:: Yes [facility]. Pt gave [facility] center,[facility], [facility],[place] and [place]. New referrals placed. Will need accpetanc, auth and pasrr completed. Will need urgent weekend f/u as able. SIGNATURE: PAULA Breaux PATIENT NAME: Fernando Guido DATE: April 28, 2023 TIME: 3:16 PM PAGER/CONTACT #: [phone] [facility] 04-28-2023 Note HNO ID: [id number] Author: Jacinto Herron LISW Service: Care Management Author Type: Breakdown Man Type: Care Mgt Progress Note Filed: 04/28/2023 11:59 AM Note Text: Summary: Discharge Planning CARE MANAGEMENT PROGRESS NOTE SERVICE DATE: 04/28/2023 SERVICE TIME: 11:59 AM LOS: 0 days [place] of Choice Given: Yes Level of Care Discussed: Nursing Home Facility;Inpatient Rehab Facility;Home Care Financial Disclosure Provided: Yes Provider List: Rehab Facility;Nursing Home Facility;Home Care Provider list within the patient's requested geographic area shared with the patient/family: Yes within: 20 miles of zip code: [address] Quality and resource use metrics shared with the patient that are relevant to the patient's goals of care and treatment preferences:: Yes Patient gave FOC for [facility]. Referrals placed. Will follow for acceptance and to start pre-cert as needed. SIGNATURE: PAULA Breaux PATIENT NAME: Fernando Guido DATE: April 28, 2023 TIME: 11:58 AM PAGER/CONTACT #: [phone] [facility] 04-28-2023 Note HNO ID: [id number] Author: Jacinto Herron LISW Service: Care Management Author Type: Breakdown Man Type: Care Mgt Initial Assessment Filed: 04/28/2023 11:58 AM Note Text: Summary: Discharge Planning CARE MANAGEMENT: ASSESSMENT AND DISCHARGE PLAN SERVICE DATE: April 28, 2023 SERVICE TIME: 11:48 AM PCP: Gaby Lernre MD Primary Contact: Extended Emergency Contact Information Primary Emergency Contact: Marcos Guido Jr. Address: [address] [place] [address] Mobile Relation: Spouse Admission Status: Observation Insurance Provider: [employer]ID[facility] [employer]OSS [facility] Discharge Planning requested by: Per Department Practice Potential Transition Plans Nursing Home Facility/Intermediate Care Facility Advance Directives Current Advance Directive: Health Care Power of Software Applications Specialist In Chart: Yes Up To Date and Valid: No Regenerator Operator Attempted to Assist with AD Completion: Yes [...] Other Post-Acute Care Goal(s): placement as needed [place] of Choice Explained: [place] of Choice Given: Yes Level of Care Discussed: Nursing Home Facility;Inpatient Rehab Facility;Home Care Are you interested [...] OBS status in depth. Pt appreciated assistance. SYSTEMS PROGRAMMER ANALYST also provided pt with a community resource list due to other community needs post d/c from hospital/SNF. Will continue to follow for d/c planning needs. SIGNATURE: PAULA Breaux PATIENT NAME: Fernando Guido DATE: April 28, 2023 TIME: 11:48 AM CONTACT #: [phone] [facility] 04-27-2023 Instructions Rafita Chavez MD - 04/27/2023 7:31 [...] hospital visit ) Declined [facility] consult / [place] location / [place] location ( was further , and cited transport difficulty) Rafita Chavez MD Staff, [facility] [address] [place] [id number] 04/27/2023 7:31 PM Stroke Signs and Symptoms: [...] diet rich in fruits and vegetables (https://www.nhlbi.nih.gov/educat ion/dpcl-axooar-kvkv) - Consider Mediterranean diet supplemented with nuts [...] of an exercise program by a health wild animal caretaker such as a physical therapist or cardiac [...] for their cardiovascular health Adapted from the [place] Heart Association/[place] Stroke Association: 2021 Guideline for the Prevention of Stroke in Patients With Stroke and Transient Ischemic Attack documented in this encounter [facility] 04-27-2023 Note HNO ID: [id number] Author: Rafita Chavez MD Service: ? Author Type: Physician Type: Progress Notes Filed: 04/27/2023 7:43 PM Note Text: Neurology Outpatient Clinic Note VIRTUAL VISIT Date: April 27, 2023 Patient Name: Fernando Guido Clinic Preceptor: Dr. Beltran HPI: This is Ms. Fernando Guido a 27 year old female who presents to the [facility] outpatient neurology department with a chief [...] Within 30 min her took her to [facility]. CT brain, CTA HANDN, and MRI [...] treatments. However, s (more content not included)... [facility] 04-27-2023 History of Present illness Narrative Neurology Outpatient Clinic Note VIRTUAL VISIT Date: April 27, 2023 Patient Name: Fernando Guido Clinic Preceptor: Dr. Beltran HPI: This is Ms. Fernando Guido a 27 year old female who presents to the [facility] outpatient neurology department with a chief [...] Within 30 min her took her to [facility]. CT brain, CTA H&N, and MRI [...] Resident, Adult Neurology (PGY-3) 04/27/2023 2:49 PM [facility] STAFF PHYSICIAN NOTE OF PERSONAL INVOLVEMENT IN [...] with neurology) Resources offered or consults at [facility] /[place] refused stating she would be unable to come for in person appointments. This visit was conducted as a virtual visit. Rafita Chavez MD Vascular Neurology Staff April 27, 2023 7:28 PM This note was partially generated using [employer] voice recognition system, and there may be [...] by contextual derivation. documented in this encounter [facility] 04-24-2023 Note HNO ID: [id number] Author: Eva Shin APRN.PHOTOENGRAVING MACHINE OPERATOR/TENDER Service: ? Author Type: Nurse Practitioner Type: Progress Notes Filed: 04/24/2023 7:59 AM Note Text: Headache Center - Follow up Virtual Visit Last OV:02/17/22 Accompanied by: Self This visit was conducted as a virtual visit, with patient's permission, via ZOOM. It required patient-provider interaction for the medical decision making as documented below. Patient stated name and Patient location [place], [place] I have communicated my name and active licensure. The patient's identity and physical location were verified at the time of this visit. Either the patient or their legal employee relations representative has been informed of the risks [...] 05/10/23 Had CVA in December was hospitalized [facility] vision R eye Botox helped at [...] has hives and seizures Tessalon [Benzonata* Rash Tbaqcmry-3-[id number] Anti* Contraindication-Medical Surgical Had CVA 12/2022 Zofran [...] pain free in (more content not included)... 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 5 1 10 Procerus Units: [...] (Abilify) Bupropion (Wellbutrin) Escitalopram (Lexapro) Fluoxetine (Prozac) [place] (Eskalith, Lithobid) Antiemetics Ondansetron Prochlorperazine Promethazine Reglan (Metoclopramide) Anti-Migraine Rizatriptan (Maxalt) Sumatriptan (Imitrex, Sumavel) Blood Pressure Metoprolol (Lopressor,Toprol XL) Botulinum Toxin Onabotulinum Toxin A (Botox) Muscle Relaxer Baclofen (Lioresal) Cyclobenzaprine (Flexeril) Methocarbamol (Robaxin) Sleep Aids Melatonin Trazodone (Desyrel) Other Medications Diphenhydramine (Benadryl) Prednisone Over the Counter Medications Acetaminophen (Tylenol) Ibuprofen (Advil, Motrin) Naproxen sodium (Aleve) Eva Shin APRN.HARSH Answers for HPI/ROS submitted by the patient on 02/10/2022 How many days of work or school have you missed due to headaches in the last month? : 20 documented in this encounter [facility] 01-26-2022 Miscellaneous Notes LV:12/10/2021 perimenopause vs early menopause s/p TH with VMS (normal dxa on estrogen check hormones Estradiol 17B pg/mL 110 FSH See comment mIU/mL 5.3 Miss FSH levels also perfectly normal more good news Estrogen level is quite normal good news Luciana Sterling January 26, 2022 3:18 PM documented in this encounter [facility] 01-26-2022 Miscellaneous Notes The following approved [...] four times daily. TIM: No [facility] documented in this encounter [facility] 01-06-2022 Miscellaneous Notes [facility] Fax number is Faxing orders to Pt preferred hospital to have complete. Leyda Dias January 06, 2022 12:05 PM documented in this encounter [facility] 11-22-2021 History of Present illness Narrative Virtual visit with me via [employer] due for pap/PUMP ASSEMBLER exam with PHOTOENGRAVING MACHINE OPERATOR/TENDER or PUMP ASSEMBLER saw Dr Parks 06/2020 distance last seen by me 05/2019 then NS 09/2019 has bloody right breast discharge NEEDS EVAL seeing bakery sales clerk for SVT reviewed interval history PHYSICIAN NOTE [...] female starts school next year lives in [place], [place] had 5 children one here for [...] past. All losses were followed by a corrections unit supervisor and the children delivered at home and remains were cremated except for alfonzo her 32 weeker. BREAST HISTORY First degree relatives: mother PM Second degree relatives: MGM Personal history of breast biopsy: no PUMP ASSEMBLER HPI Last menstrual period. Patient's last menstrual period was 11/04/2018. Age at menopause onset: 25 Menopausal symptom assessment: Vasomotor symptoms: yes better on ET still has Urinary incontinence & symptoms: no incontinence CARDIOVASCULAR Lipid & CV risk assessment: exsmoker no DVT no HTN no DM no SD no stroke BONE STATUS Discussed calcium in [...] Paternal Aunt Seizures Father Heart Father 39 SD other (Coagulopathy) Paternal Aunt Seizures Maternal Grandfather [...] DX W/COLLJ SPEC WHEN PFRMD 06/12/2017 Colonoscopy WC - normal - Bx negative ESOPHAGOGASTRODUODENOSCOPY TRANSORAL [...] Substance Use Topics Alcohol use: Yes Comment: occ Drug use: Not Currently Types: Amphetamines, Benzodiazepines, [...] re-evaluation. Living Will & Medical Power of Software Applications Specialist recommended-she has Mammogram discussed age 44 NEEDS [...] (Signed electronically to expedite mailing) c: Fernando Gael documented in this encounter [facility] 11-12-2021 Note HNO ID: [id number] Author: Isreal Beckham MD Service: ? 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 Guido is a 26 year old female seen in [facility] for initial consultation. There is no one accompanying the patient during today's visit. Handedness: Age of onset: Seizure History and Evolution Ms. 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 [...] recent EEG was done and per her [facility] neurologist (Dr. Howell) EEG and MRI from 09/04/2021 were normal. She was previously seen by Dr. Pete at [facility] in 2016 for episodes of staring and convulsions. These episodes of convulsions were confirmed to be PNES during EMU evaluation at [facility] in 2016. [address] Howell's notes indicate that he has recommended EMU evaluation at [facility] for spell classification. ED visit in Jun [...] - Seizure risk factors: Brain Tumor Unanswered WARP DYEING TENDER Infections Unanswered Developmental Delay Unanswered Family history [...] Puffs as instructed. (more content not included)... 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 Guido is a 26 year old female seen in [facility] for initial consultation. There is no one accompanying the patient during today's visit. Handedness: Age of onset: Seizure History and Evolution Ms. 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 [...] recent EEG was done and per her [facility] neurologist (Dr. Howell) EEG and MRI from 09/04/2021 were normal. She was previously seen by Dr. Pete at [facility] in 2016 for episodes of staring and convulsions. These episodes of convulsions were confirmed to be PNES during EMU evaluation at [facility] in 2015. Dr. Howell's notes indicate that he has recommended EMU evaluation at [facility] for spell classification. ED visit in Jun [...] - Seizure risk factors: Brain Tumor Unanswered WARP DYEING TENDER Infections Unanswered Developmental Delay Unanswered Family history [...] Anxiety Asthma Bipolar disorder (HCC) Chichi Alejo [facility] type 1 Chlamydia 2013 Complication of anesthesia migraines after anesthesia Fibromyalgia on gabapentin for this GERD (gastroesophageal reflux disease) Migraines perimenopause s/p TH 11/2018 rt ovary remains Polysubstance abuse ([facility]) History. 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 Tobacco use PAST SURGICAL HISTORY Procedure Laterality Date ARTHRS AIDED ANT CRUCIATE LIGM RPR/AGMNTJ/RCNSTJ Right 01/27/2017 Right knee arthroscopic ACL reconstruction with hamstring autograft and medial menisectomy COLONOSCOPY FLX DX W/COLLJ SPEC WHEN PFRMD 06/12/2017 Colonoscopy [facility] - normal - Bx negative ESOPHAGOGASTRODUODENOSCOPY TRANSORAL DIAGNOSTIC 06/12/2017 EGD - duodenitis, gastritis, superfical gastric ulcers, HYSTERECTOMY 11/2018 TH and tubes, benign pathology REMOVAL OF OVARY(S) Left 05/2020 benign path- see 08/13 ms TUBAL LIGATION HX FAMILY HISTORY Adopted: Yes [...] Paternal Aunt Seizures Father Heart Father 39 SD other (Coagulopathy) Paternal Aunt Seizures Maternal Grandfather other (autism, fragile x) Sister fathers side ADD/ADHD Brother mother's side Bipolar disorder Brother Autism Brother Autism Brother father s side Alcohol/Drug Brother mother's side Bipolar disorder Brother other (Down syndrome) Sister mother's side other (border line Autism) Son other (healthy) Son other (healthy) Son other (healthy) Daughter other (pneumonia) Daughter SOCIAL HISTORY: -Lives in [place], [place] -Patient lives alone? -Vocation: -Education: -Cigarette, [...] of PNES based on videoEEG evaluation at [facility] in 2016 here for evaluation of [...] the date of the service which included: [id number] patient care completing clinical documentation obtaining and/or reviewing separately obtained history Isreal Beckham MD Associate Staff, Epilepsy [facility] November 12, 2021 Office phone: [phone] cc: Primary Care Physician: Gaby Lerner MD, [address] [address] Referring: SELF Phone: N/A Fax: Patient: Ms. Fernando Guido [address] [facility] [id number] documented in this encounter [facility] 10-25-2021 Miscellaneous Notes Botox referral sent to pharmacy. Jaki Jonas RN documented in this encounter [facility] 10-22-2021 Miscellaneous Notes The following approved [...] Routing to Dr. Parks. LV:04/22/2021 Dr. Parks [facility] The following diagnoses were relevant to this [...] would plan to have that done at [facility], if her insurance at the turn of the year still covers [facility]. I gave her a limited supply, [...] 2021 2:25 PM documented in this encounter [facility] 10-22-2021 History of Present illness Narrative Headache Center - Follow up Visit Last OV:04/18/19 Accompanied by: Self Primary Problem List: ACTIVE PROBLEM LIST Bipolar 1 Disorder (Hcc) History of Depression History of Drug Abuse (Hcc) Poor Historian Ptsd (Post-Traumatic Stress Disorder) Polysubstance Abuse (Hcc) Migraines Asthma Anxiety Seizure (Hcc) Gerd (Gastroesophageal Reflux Disease) Tobacco Use perimenopause [...] (Abilify) Bupropion (Wellbutrin) Escitalopram (Lexapro) Fluoxetine (Prozac) [place] (Eskalith, Lithobid) Antiemetics Ondansetron Prochlorperazine Promethazine Reglan [...] discussed these with the patient: yes Eva Shin APRN.PHOTOENGRAVING MACHINE OPERATOR/TENDER Studies to Review: No New Health Issues: [...] (Abilify) Bupropion (Wellbutrin) Escitalopram (Lexapro) Fluoxetine (Prozac) [place] (Eskalith, Lithobid) Blood Pressure Metoprolol (Lopressor,Toprol XL) [...] which included preparing to see the patient, [id number] patient care, completing clinical documentation, performing a medically appropriate examination, counseling and educating the patient/family/caregiver and ordering medications, tests, or procedures. Eva Shin APRN.HARSH documented in this encounter [facility] Work Phone: [phone]) [phone] Procedure note* Félix Howell MD - 09/06/2021 [...] stimulation, drowsiness or sleep. documented in this [id number] Miscellaneous Notes* Interdisciplinary - Jaspreet Virgen - 09/04/2021 9:00 AM EST EEG complete. Dr. Howell to read. documented in this [id number] Emergency department Note* Philip Robin RN - [...] not care, she wants to leave now. [facility] traffic division commanding officer Sarath in room and talks with [...] 1 Actuation into the lungsdaily. 60 each Tyson Alexandra, ROYAL PHOTOENGRAVING MACHINE OPERATOR/TENDER lithium 600 MG capsule Take 600 mg by mouth 2 times daily (with meals). ProviderMinor MD tiotropium bromide monohydrate (SPIRIVA RESPIMAT) 2.5 MCG/ACT AERS Inhale 2 puffs into the lungs daily. Minor Howell MD topiramate (TOPAMAX) 25 MG tablet Take 75 mg by mouth daily. Minor Howell MD Allergies (Review Complete on: 07/06/21) Agent Severity [...] home today. Pt says drove here from [place] and does not have anyone to pick [...] nad noted, skin p/w/d. [facility] Miscellaneous Notes* D/C Planning - Radha Jimenes RN - 07/06/2021 5:03 PM EST Spoke with pt at bedside re transportation, She is currently waiting on [employer] to call her back. [facility] does not provide transportation. [employer] shuttle is not available. [facility] NotePROCEDURE: KNEE RIGHT, 11/27/2020 8:21 AM EDT [...] No acute osseous pathology 3. Min[facility] NotePROCEDURE: PATELLA RIGHT, 10/07/2020, 10:29 AM [...] and postoperative gas. 4. Soft tissue swelling remains.[facility]-2021 NotePROCEDURE: PATELLA RIGHT, 09/23/2020 2:21 PM [...] 4. Anterior soft tissue swelling of the kneeAvita [facility]12-16-2020 NotePROCEDURE: PATELLA RIGHT, 07/08/2020 8:00 AM [...] cruciate ligament repair. 2. No acute osseous pathology.[facility] History of Past illness Narrative* Problem Noted Date Resolved Date Hormone replacement therapy (HRT) 06/03/2019 07/16/2020 Recurrent loss (CODE) 10/13/2016 12/27/2016 Overview: Recommend weekly NST Iman Akhtar MD October 13, 2016 reviewed history extensively see records for info ordered APL workup negative at [facility]. Iman Akhtar MD 10/13/2016Pt states she is . One child at age 1 from pneumonia. She had several 2nd trimester losses. The FOB is the father of 7 of her pregnancies. He is here with her today. TKRN with care elsewhere, antepart 10/13/2016 12/27/2016 Overview: 10/13/2016Patient is transferring care from Dr Varela in [place]. She states she had started care at [facility] and then transferred to [place] because she moved to the [place] area. She has been recently seen at in [place] by [facility] and hospitalized for PTL. Patient signed a release of records form to obtain her medical records from [facility], [facility] and Dr Varela.TKRN History of labor, current 09/2212/27/2016 Overview: Today 1.5 cm, States she was 3 cm last week October 13, 2016 given bmz on admitted at [facility] for fever Iman Akhtar MD History of labor 10/13/2016 017 Overview: 10/13/2016Ashley has been recently seen at in [place] by [facility] and hospitalized for PTL. She states she received steroid injections and continues Wollochet injections in the home. TKRN UTI (urinary [...] diagnosed with pseudoseizures by doctor at the [facility]. 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 Iman Akhtar MD 10/13/2016Pt states she is . One child at age 1 from pneumonia. She had several 2nd trimester losses. The FOB is the father of 7 of her pregnancies. He is here with her today. TKRN with care elsewhere, antepart um 10/13/2016 12/27/2016 Overview: 10/13/2016Patient is transferring care from Dr Varela in [place]. She states she had started care at [facility] and then transferred to [place] because she moved to the [place] area. She has been recently seen at in [place] by [facility] and hospitalized for PTL. Patient signed a release of records form to obtain her medical records from [facility], [place] [facility] and Dr Varela.TKRN History of labor, current 09/2212/27/2016 Overview: Today 1.5 cm, States she was 3 cm last week October 13, 2016 given bmz on 10/01- admitted at [facility] for fever Iman Akhtar MD History of labor 10/13/2016 017 Overview: 10/13/2016Ashley has been recently seen at in [place] by [facility] and hospitalized for PTL. She states she received steroid injections and continues Wollochet injections in the home. TKRN UTI (urinary [...] diagnosed with pseudoseizures by doctor at the [facility]. 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 Iman Akhtar MD 10/13/2016Pt states she is . One child at age 1 from pneumonia. She had several 2nd trimester losses. The FOB is the father of 7 of her pregnancies. He is here with her today. TKRN with care elsewhere, antepart um 10/13/2016 12/27/2016 Overview: 10/13/2016Patient is transferring care from Dr Varela in [place]. She states she had started care at [facility] and then transferred to [place] because she moved to the [place] area. She has been recently seen at in [place] by [facility] and hospitalized for PTL. Patient signed a release of records form to obtain her medical records from [facility], [facility] and Dr Varela.TKRN History of labor, current 09/2212/27/2016 Overview: Today 1.5 cm, States she was 3 cm last week October 13, 2016 given bmz on admitted at [facility] for fever Iman Akhtar MD History of labor 10/13/2016 017 Overview: 10/13/2016Ashley has been recently seen at in [place] by Sharri and hospitalized for PTL. She states she [...] diagnosed with pseudoseizures by doctor at the [facility]. She has been off Keppra since [...] of this encounter (statuses as of 10/25/2021) [facility]11-11-2019 History of Past illness Narrative* Problem Noted Date Resolved Date Hormone replacement therapy (HRT) 06/03/2019 07/16/2020 Recurrent loss (CODE) 10/13/2016 12/27/2016 Overview: Recommend weekly NST Iman Akhtar MD October 13, 2016 reviewed history extensively see records for info ordered APL workup negative at [facility]. Iman Akhtar MD 10/13/2016Pt states she is . One child at age 1 from pneumonia. She had several 2nd trimester losses. The FOB is the father of 7 of her pregnancies. He is here with her today. TKRN with care elsewhere, antepart 10/13/2016 12/27/2016 Overview: 10/13/2016Patient is transferring care from Dr Varela in [place]. She states she had started care at [facility] and then transferred to [place] because she moved to the [place] area. She has been recently seen at in [place] by [facility] and hospitalized for PTL. Patient signed a release of records form to obtain her medical records from [facility], [facility] and Dr Varela.TKRN History of labor, current 09/2212/27/2016 Overview: Today 1.5 cm, States she was 3 cm last week October 13, 2016 given bmz on 10/01- admitted at [facility] for fever Iman Akhtar MD History of labor 10/13/2016 017 Overview: 10/13/2016Ashley has been recently seen at in [place] by [facility] and hospitalized for PTL. She states she received steroid injections and continues Wollochet injections in the home. TKRN UTI (urinary [...] diagnosed with pseudoseizures by doctor at the [facility]. She has been off Keppra since [...] of this encounter (statuses as of 11/12/2021) [facility]03-23-2017 History of Past illness Narrative* Problem Noted Date Resolved Date Recurrent loss (CODE) 10/13/2016 12/27/2016 Overview: Recommend weekly NST Iman Akhtar MD October 13, 2016 reviewed history extensively see records for info ordered APL workup negative at [facility]. Iman Akhtar MD 10/13/2016Pt states she is . One child at age 1 from pneumonia. She had several 2nd trimester losses. The FOB is the father of 7 of her pregnancies. He is here with her today. TKRN with care elsewhere, antepart 10/13/2016 12/27/2016 Overview: 10/13/2016Patient is transferring care from Dr Varela in [place]. She states she had started care at [facility] and then transferred to [place] because she moved to the [place] area. She has been recently seen at in [place] by [facility] and hospitalized for PTL. Patient signed a release of records form to obtain her medical records from [facility], [facility] and Dr Varela.TKRN History of labor, current 09/2212/27/2016 Overview: Today 1.5 cm, States she was 3 cm last week October 13, 2016 given bmz on 10/01- admitted at [facility] for fever Iman Akhtar MD History of labor 10/13/2016 017 Overview: 10/13/2016Ashley has been recently seen at in [place] by [facility] and hospitalized for PTL. She states [...] diagnosed with pseudoseizures by doctor at the [facility]. She has been off Keppra since [...] of this encounter (statuses as of 12/10/2021) [facility]03-23-2017 History of Past illness Narrative* Problem Noted Date Resolved Date Recurrent loss (CODE) 10/13/2016 12/27/2016 Overview: Recommend weekly NST Iman Akhtar MD October 13, 2016 reviewed history extensively see records for info ordered APL workup negative at [facility]. Iman Akhtar MD 10/13/2016Pt states she is . One child at age 1 from pneumonia. She had several 2nd trimester losses. The FOB is the father of 7 of her pregnancies. He is here with her today. TKRN with care elsewhere, antepart 10/13/2016 12/27/2016 Overview: 10/13/2016Patient is transferring care from Dr Varela in [place]. She states she had started care at [facility] and then transferred to [place] because she moved to the [place] area. She has been recently seen at in [place] by [facility] and hospitalized for PTL. Patient signed a release of records form to obtain her medical records from [facility], [facility] and Dr Varela.TKRN History of labor, current 09/2212/27/2016 Overview: Today 1.5 cm, States she was 3 cm last week October 13, 2016 given bmz on 10/01- admitted at [facility] for fever Iman Akhtar MD History of labor 10/13/2016 017 Overview: 10/13/2016She has been recently seen at in [place] by [facility] and hospitalized for PTL. She states she received steroid injections and continues Wollochet injections in the home. TKRN UTI (urinary [...] diagnosed with pseudoseizures by doctor at the [facility]. She has been off Keppra since [...] of this encounter (statuses as of 01/06/2022) [facility]03-23-2017 History of Past illness Narrative* Problem Noted Date Resolved Date Recurrent loss (CODE) 10/13/2016 12/27/2016 Overview: Recommend weekly NST Iman Akhtar MD October 13, 2016 reviewed history extensively see records for info ordered APL workup negative at [facility]. Iman Akhtar MD 10/13/2016Pt states she is . One child at age 1 from pneumonia. She had several 2nd trimester losses. The FOB is the father of 7 of her pregnancies. He is here with her today. TKRN with care elsewhere, antepart 10/13/2016 12/27/2016 Overview: 10/13/2016Patient is transferring care from Dr Varela in [place]. She states she had started care at [facility] and then transferred to [place] because she moved to the [place] area. She has been recently seen at in [place] by [facility] and hospitalized for PTL. Patient signed a release of records form to obtain her medical records from [facility], [facility] and Dr Varela.TKRN History of labor, current 09/2212/27/2016 Overview: Today 1.5 cm, States she was 3 cm last week October 13, 2016 given bmz on 10/01- admitted at [facility] for fever Iman Akhtar MD History of labor 10/13/2016 017 Overview: 10/13/2016She has been recently seen at in [place] by [facility] and hospitalized for PTL. She states she received steroid injections and continues Wollochet injections in the home. TKRN UTI (urinary [...] diagnosed with pseudoseizures by doctor at the [facility]. She has been off Keppra since [...] of this encounter (statuses as of 01/26/2022) [facility]03-23-2017 History of Past illness Narrative* Problem Noted Date Resolved Date Recurrent loss (CODE) 10/13/2016 12/27/2016 Overview: Recommend weekly NST Iman Akhtar MD October 13, 2016 reviewed history extensively see records for info ordered APL workup negative at [facility]. Iman Akhtar MD 10/13/2016Pt states she is . One child at age 1 from pneumonia. She had several 2nd trimester losses. The FOB is the father of 7 of her pregnancies. He is here with her today. TKRN with care elsewhere, antepart um 10/13/2016 12/27/2016 Overview: 10/13/2016Patient is transferring care from Dr Varela in [place]. She states she had started care at [facility] and then transferred to [place] because she moved to the [place] area. She has been recently seen at in [place] by [facility] and hospitalized for PTL. Patient signed a release of records form to obtain her medical records from [facility], [facility] and Dr Varela.TKRN History of labor, current 09/2212/27/2016 Overview: Today 1.5 cm, States she was 3 cm last week October 13, 2016 given bmz on 10/01- admitted at [facility] for fever Iman Akhtar MD History of labor 10/13/2016 017 Overview: 10/13/2016She has been recently seen at in [place] by [facility] and hospitalized for PTL. She states [...] diagnosed with pseudoseizures by doctor at the [facility]. She has been off Keppra since [...] of this encounter (statuses as of 02/03/2022) [facility]03-[facility]-2017 History of Past illness Narrative* Problem Noted Date Resolved Date Recurrent loss (CODE) 10/13/2016 12/27/2016 Overview: Recommend weekly NST Iman Akhtar MD October 13, 2016 reviewed history extensively see records for info ordered APL workup negative at [facility]. Iman Akhtar MD 10/13/2016Pt states she is . One child at age 1 from pneumonia. She had several 2nd trimester losses. The FOB is the father of 7 of her pregnancies. He is here with her today. TKRN with care elsewhere, antepart um 10/13/2016 12/27/2016 Overview: 10/13/2016Patient is transferring care from Dr Varela in [place]. She states she had started care at [facility] and then transferred to [place] because she moved to the [place] area. She has been recently seen at in [place] by [facility] and hospitalized for PTL. Patient signed a release of records form to obtain her medical records from [facility], [facility] and Dr Varela.TKRN History of labor, current 09/2212/27/2016 Overview: Today 1.5 cm, States she was 3 cm last week October 13, 2016 given bmz on 10/01- admitted at [facility] for fever Iman Akhtar MD History of labor 10/13/2016 017 Overview: 10/13/2016She has been recently seen at in [place] by [facility] and hospitalized for PTL. She states [...] diagnosed with pseudoseizures by doctor at the [facility]. 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 Iman Akhtar MD 10/13/2016Pt states she is . One child at age 1 from pneumonia. She had several 2nd trimester losses. The FOB is the father of 7 of her pregnancies. He is here with her today. TKRN with care elsewhere, antepartum 10/13/2016 12/27/2016 Overview: 10/13/2016Patient is transferring care from Dr Varela in [place]. She states she had started care at [facility] and then transferred to [place] because she moved to the [place] area. She has been recently seen at in [place] by [facility] and hospitalized for PTL. Patient signed a release of records form to obtain her medical records from [facility], [facility] and Dr Varela.TKRN History of labor, current 10/13/2016 12/27/2016 Overview: Today 1.5 cm, States she was 3 cm last week October 13, 2016 given bmz on 10/01- admitted at [facility] for fever Iman Akhtar MD History of labor 10/13/201612/2016 Overview: 10/13/2016Shbarbi has been recently seen at in [place] by [facility] and hospitalized for PTL. She states [...] diagnosed with pseudoseizures by doctor at the [facility]. She has been off Keppra since [...] of this encounter (statuses as of 04/29/2023) [facility]03-23-2017 History of Past illness Narrative* Problem Noted Date Diagnosed Date Resolved Date Recurrent loss (CODE) 10/13/2016 12/27/2016 Overview: Recommend weekly NST Iman Akhtar MD October 13, 2016 reviewed history extensively see records for info ordered APL workup negative at [facility]. Iman Akhtar MD 10/13/2016Pt states she is . One child at age 1 from pneumonia. She had several 2nd trimester losses. The FOB is the father of 7 of her pregnancies. He is here with her today. TKRN with care elsewhere, antepartum 10/13/2016 12/27/2016 Overview: 10/13/2016Patient is transferring care from Dr Varela in [place]. She states she had started care at [facility] and then transferred to [place] because she moved to the [place] area. She has been recently seen at in [place] by [facility] and hospitalized for PTL. Patient signed a release of records form to obtain her medical records from [facility], [facility] and Dr Varela.TKRN History of labor, current 10/13/2016 12/27/2016 Overview: Today 1.5 cm, States she was 3 cm last week October 13, 2016 given bmz on 10/01- admitted at [facility] for fever Iman Akhtar MD History of labor 10/13/201612/2016 Overview: 10/13/2016Ashley has been recently seen at in [place] by [facility] and hospitalized for PTL. She states [...] diagnosed with pseudoseizures by doctor at the [facility]. She has been off Keppra since [...] of this encounter (statuses as of 06/20/2023) [facility]03-[facility]2017 History of Past illness Narrative* Problem Noted Date Diagnosed Date Resolved Date Recurrent loss (CODE) 10/13/2016 12/27/2016 Overview: Recommend weekly NST Iman Akhtar MD October 13, 2016 reviewed history extensively see records for info ordered APL workup negative at [facility]. Iman Akhtar MD 10/13/2016Pt states she is . One child at age 1 from pneumonia. She had several 2nd trimester losses. The FOB is the father of 7 of her pregnancies. He is here with her today. TKRN with care elsewhere, antepartum 10/13/2016 12/27/2016 Overview: 10/13/2016Patient is transferring care from Dr Varela in [place]. She states she had started care at [facility] and then transferred to [place] because she moved to the [place] area. She has been recently seen at in [place] by [facility] and hospitalized for PTL. Patient signed a release of records form to obtain her medical records from [facility], [facility] and Dr Varela.TKRN History of labor, current 10/13/2016 12/27/2016 Overview: Today 1.5 cm, States she was 3 cm last week October 13, 2016 given bmz on 10/01- admitted at [facility] for fever Iman Akhtar MD History of labor 10/13/201612/2016 Overview: 10/13/2016She has been recently seen at in [place] by [facility] and hospitalized for PTL. She states [...] quit. TKRN History of seizures 10/13/2016 01/26/20 Overview: 10/13/2016 She states she has been diagnosed with pseudoseizures by doctor at the [facility]. She has been off Keppra since [...] of this encounter (statuses as of 06/23/2023) [facility]2017 History of Past illness Narrative* Problem Noted Date Diagnosed Date Resolved Date Recurrent loss (CODE) 10/13/2016 12/27/2016 Overview: Recommend weekly NST Iman Akhtar MD October 13, 2016 reviewed history extensively see records for info ordered APL workup negative at [facility]. Iman Akhtar MD 10/13/2016Pt states she is . One child at age 1 from pneumonia. She had several 2nd trimester losses. The FOB is the father of 7 of her pregnancies. He is here with her today. TKRN with care elsewhere, antepartum 10/13/2016 12/27/2016 Overview: 10/13/2016Patient is transferring care from Dr Varela in [place]. She states she had started care at [facility] and then transferred to [place] because she moved to the [place] area. She has been recently seen at in [place] by [facility] and hospitalized for PTL. Patient signed a release of records form to obtain her medical records from [facility], [facility] and Dr Varela.TKRN History of labor, current 10/13/2016 12/27/2016 Overview: Today 1.5 cm, States she was 3 cm last week October 13, 2016 given bmz on 10/01- admitted at [facility] for fever Iman Akhtar MD History of labor 10/13/201612/2016 Overview: 10/13/2016Shbarbi has been recently seen at in [place] by [facility] and hospitalized for PTL. She states she received steroid injections and continues Wollochet injections in the home. TKRN UTI (urinary [...] diagnosed with pseudoseizures by doctor at the [facility]. She has been off Keppra since [...] of this encounter (statuses as of 06/27/2023) [facility]2017 History of Past illness Narrative* Problem Noted Date Diagnosed Date Resolved Date Recurrent loss (CODE) 10/13/2016 12/27/2016 Overview: Recommend weekly NST Iman Ahktar MD October 13, 2016 reviewed history extensively see records for info ordered APL workup negative at [facility]. Iman Akhtar MD 10/13/2016Pt states she is . One child at age 1 from pneumonia. She had several 2nd trimester losses. The FOB is the father of 7 of her pregnancies. He is here with her today. TKRN with care elsewhere, antepartum 10/13/2016 12/27/2016 Overview: 10/13/2016Patient is transferring care from Dr Varela in [place]. She states she had started care at [facility] and then transferred to [place] because she moved to the [place] area. She has been recently seen at in [place] by [facility] and hospitalized for PTL. Patient signed a release of records form to obtain her medical records from [facility], [facility] and Dr Varela.TKRN History of labor, current 10/13/2016 12/27/2016 Overview: Today 1.5 cm, States she was 3 cm last week October 13, 2016 given bmz on admitted at [facility] for fever Iman Akhtar MD History of labor 10/13/201612/2016 Overview: 10/13/2016Ashley has been recently seen at in [place] by [facility] and hospitalized for PTL. She states [...] diagnosed with pseudoseizures by doctor at the [facility]. She has been off Keppra since [...] of this encounter (statuses as of 06/28/2023) [facility] History of Past illness Narrative* Problem Noted Date Diagnosed Date Resolved Date Recurrent loss (CODE) 10/13/2016 12/27/2016 Overview: Recommend weekly NST Iman Akhtar MD October 13, 2016 reviewed history extensively see records for info ordered APL workup negative at [facility]. Iman Akhtar MD 10/13/2016Pt states she is . One child at age 1 from pneumonia. She had several 2nd trimester losses. The FOB is the father of 7 of her pregnancies. He is here with her today. TKRN with care elsewhere, antepartum 10/13/2016 12/27/2016 Overview: 10/13/2016Patient is transferring care from Dr Varela in [place]. She states she had started care at [facility] and then transferred to [place] because she moved to the [place] area. She has been recently seen at in [place] by [facility] and hospitalized for PTL. Patient signed a release of records form to obtain her medical records from [facility], [facility] and Dr Varela.TKRN History of labor, current 10/13/2016 12/27/2016 Overview: Today 1.5 cm, States she was 3 cm last week October 13, 2016 given bmz on 10/01- admitted at [facility] for fever Iman Akhtar MD History of labor 10/13/201612/2016 Overview: 10/13/2016Ashley has been recently seen at in [place] by [facility] and hospitalized for PTL. She states she received steroid injections and continues Wollochet injections in the home. TKRN UTI (urinary [...] diagnosed with pseudoseizures by doctor at the [facility]. She has been off Keppra since [...] of this encounter (statuses as of 08/30/2023) [facility] History of Past illness Narrative* Problem Noted Date Diagnosed Date Resolved Date Recurrent loss (CODE) 10/13/2016 12/27/2016 Overview: Recommend weekly NST Iman Akhtar MD October 13, 2016 reviewed history extensively see records for info ordered APL workup negative at [facility]. Iman Akhtar MD 10/13/2016Pt states she is . One child at age 1 from pneumonia. She had several 2nd trimester losses. The FOB is the father of 7 of her pregnancies. He is here with her today. TKRN with care elsewhere, antepartum 10/13/2016 12/27/2016 Overview: 10/13/2016Patient is transferring care from Dr Varela in [place]. She states she had started care at [facility] and then transferred to [place] because she moved to the [place] area. She has been recently seen at in [place] by [facility] and hospitalized for PTL. Patient signed a release of records form to obtain her medical records from [facility], [facility] and Dr Varela.TKRN History of labor, current 10/13/2016 12/27/2016 Overview: Today 1.5 cm, States she was 3 cm last week October 13, 2016 given bmz on 10/01- admitted at [facility] for fever Iman Akhtar MD History of labor 10/13/201612/2016 Overview: 10/13/2016Ashley has been recently seen at in [place] by [facility] and hospitalized for PTL. She states she received steroid injections and continues Wollochet injections in the home. TKRN UTI (urinary [...] diagnosed with pseudoseizures by doctor at the [facility]. She has been off Keppra since [...] of this encounter (statuses as of 08/31/2023) [facility] History of Past illness Narrative* Problem Noted Date Diagnosed Date Resolved Date Recurrent loss (CODE) 10/13/2016 12/27/2016 Overview: Recommend weekly NST Iman Akhtar MD October 13, 2016 reviewed history extensively see records for info ordered APL workup negative at [facility]. Iman Akhtar MD 10/13/2016Pt states she is . One child at age 1 from pneumonia. She had several 2nd trimester losses. The FOB is the father of 7 of her pregnancies. He is here with her today. TKRN with care elsewhere, antepartum 10/13/2016 12/27/2016 Overview: 10/13/2016Patient is transferring care from Dr Varela in [place]. She states she had started care at [facility] and then transferred to [place] because she moved to the [place] area. She has been recently seen at in [place] by [facility] and hospitalized for PTL. Patient signed a release of records form to obtain her medical records from [facility], [facility] and Dr Varela.TKRN History of labor, current 10/13/2016 12/27/2016 Overview: Today 1.5 cm, States she was 3 cm last week October 13, 2016 given bmz on 10/01- admitted at [facility] for fever Iman Akhtar MD History of labor 10/13/201612/2016 Overview: 10/13/2016Ashley has been recently seen at in [place] by [facility] and hospitalized for PTL. She states she received steroid injections and continues Wollochet injections in the home. TKRN UTI (urinary [...] diagnosed with pseudoseizures by doctor at the [facility]. She has been off Keppra since [...] of this encounter (statuses as of 09/05/2023) [facility] History of Past illness Narrative* Problem Noted Date Diagnosed Date Resolved Date Recurrent loss (CODE) 10/13/2016 12/27/2016 Overview: Recommend weekly NST Iman Akhtar MD October 13, 2016 reviewed history extensively see records for info ordered APL workup negative at [facility]. Iman Akhtar MD 10/13/2016Pt states she is . One child at age 1 from pneumonia. She had several 2nd trimester losses. The FOB is the father of 7 of her pregnancies. He is here with her today. TKRN with care elsewhere, antepartum 10/13/2016 12/27/2016 Overview: 10/13/2016Patient is transferring care from Dr Varela in [place]. She states she had started care at [facility] and then transferred to [place] because she moved to the [place] area. She has been recently seen at in [place] by [facility] and hospitalized for PTL. Patient signed a release of records form to obtain her medical records from [facility] BASTER, [facility] and Dr Varela.TKRN History of labor, current 10/13/2016 12/27/2016 Overview: Today 1.5 cm, States she was 3 cm last week October 13, 2016 given bmz on 10/01- admitted at [facility] for fever Iman Akhtar MD History of labor 10/13/201612/2016 Overview: 10/13/2016Shbarbi has been recently seen at in [place] by [facility] and hospitalized for PTL. She states she received steroid injections and continues [place]het injections in the home. TKRN UTI (urinary [...] diagnosed with pseudoseizures by doctor at the [facility]. She has been off Keppra since [...] of this encounter (statuses as of 09/05/2023) [facility] department Discharge summary* Flory Titus RN: PERFORM Event Display: Depart Summary ED Authored Date: [id number] Discharge Instructions Thank you for allowing [facility] to assist you with your healthcare needs. [...] MD When Within 2-4 days Where: [address] [place] [address]- Allergies Brethine Keflex Latex Procardia (hypotension) amoxicillin [...] delay the healing process. You may use pjlh-ygb-dvlybwe pain medicine to control pain, unless another [...] or as directed by your healthcare provider [phone] [employer]. [address] [place] [address]. All rights reserved. This information is not intended as a substitute for professional medical care. Always follow yourhealthcare professional's instructions. Additional Information VACCINATE! IT SAVES LIVES! Members of the community who have not yet received the COVID-19 vaccine and would like to receive it can visit one of [facility] vaccine clinics. There are many vaccine clinic locations within the [facility]. For locations and available times, please visit www.gettheshot.coronavirus.[place].gov/. It is important to note that some COVID mobile vaccine clinics are held outdoors and may be canceled in rainy or stormy conditions. To learn more about pediatric vaccinations (ages 5-11), we invite you to visit the [facility] webpage. https://www.[facility].org/pages/8968-Aknmz-Cpszjafykvl-Hyoptohicd-Goisn-Dex stions.htmlTo learn more about the COVID-19 vaccine, we invite you to visit the CDC website for a list of frequently asked questions. https://www.cdc.gov/coronavirus/2019-ncov/vaccines/faq.html [facility] Patient Portal Access Instructions: Stay connected with your healthcare team and access your personal medical information anytime with the [facility] Patient Portal. If you would like a full copy of your medical records please contact the [facility] Medical Records Department Monday through Monday between 8a.m. and 4:30p.m. Please follow the directions below to access the portal: 1.Access the email account you provided upon registration to the [facility].2.Look for an invitation email from [facility].3.Open the email and access the invitation link: Accept Invitation to [facility]4.Fill in the required webb to create your account. Sign into www.Funny Or Die with your username and password that you [...] you will allow to register on the [facility] Patient Portal for access to your information. You can also access the [facility] Patient Portal on the StyleSeat cruz. Simply click on Health Records under [employer] and then click on the [facility] logo. HOW TO SAFELY DISPOSE OF PRESCRIPTION [...] Call your local pharmacy or go to http://bit.DesignGooroo/3C4Jp5y to find one close to you.3.Make use of household items: Use cat litter or old coffee grounds to dispose medications if other options arenot available. Mix your drugs with these household products, seal them in an airtight container andthrow it into the garbage. [facility]: [phone] to be sure your drugs can be [...] aware that I should contact my doctor. Patient/Dispatcher Service Chief Signature: Date/Time: Relationship to Patient: Witness Name/Signature: Date/Time: [facility] department Discharge summary* Kavya, Teodora M RN: PERFORM Event Display: Depart Summary ED Authored Date: Discharge Instructions Thank you for allowing [facility] to assist you with your healthcare needs. The following is importantdischarge information regarding your hospital visit. Diagnosis from Today's Visit Edema of lower leg Lower leg pain-swelling What to Do Next Instructions from Your Care Team Discharge ED Outpatient Vascular Lab - Ordered -- Test Requested: Bilateral LE Doppler US for DVT, Lower extremity, Bilateral, Test Reason: Swelling, Mon-Fri 6am-6:30pm: Call [phone] to schedule a same day appointment for testing or report to the Vascular Lab at 6:00 AM. Please be aware that the... Post Acute Orders No qualifying data available. You Need to Schedule the Following Appointments Follow Up with LEXA RODRIGUEZ MD When Within 2-4 days Why: Return to ED if symptoms worsen Where: [address] [place] [id number]- Allergies Brethine Keflex Latex Procardia (hypotension) amoxicillin [...] insufficiency or varicose veins, don't sit or internal grinder tender one place for long periods of time. [...] or use an increased number of pillows [phone] [employer]. [address] [place] [address], [place] [address]. All rights reserved. This information is not intended as a substitute for professional medical care. Always follow yourhealthcare professional's instructions. Additional Information VACCINATE! IT SAVES LIVES! Members of the community who have not yet received the COVID-19 vaccine and would like to receive it can visit one of [facility] vaccine clinics. There are many vaccine clinic locations within the [facility]. For locations and available times, please visit www.gettheshot.coronavirus.[place].gov/. It is important to note that some COVID mobile vaccine clinics are held outdoors and may be canceled in rainy or stormy conditions. To learn more about pediatric vaccinations (ages 5-11), we invite you to visit the [facility] webpage. https://www.[facility] [facility].org/pages/5871-Rlypd-Jhdsumzsvub-Ioqegkzemc-Fpnxa-Tuh stions.htmlTo learn more about the COVID-19 vaccine, we invite you to visit the CDC website for a list of frequently asked questions. https://www.cdc.gov/coronavirus/2019-ncov/vaccines/faq.html [facility] Patient Portal Access Instructions: Stay connected with your healthcare team and access your personal medical information anytime with the [facility] Patient Portal. If you would like a full copy of your medical records please contact the [facility] Medical Records Department Monday through Monday between 8a.m. and 4:30p.m. Please follow the directions below to access the portal: 1.Access the email account you provided upon registration to the hospital.2.Look for an invitation email from [facility].3.Open the email and access the invitation link: Accept Invitation to [facility]4.Fill in the required webb to create your account. Sign into www.Funny Or Die with your username and password that you [...] you will allow to register on the [facility] Patient Portal for access to your information. You can also access the [facility] Patient Portal on the [employer]. Simply click on Health Records under [employer] and then click on the [employer] logo. HOW TO SAFELY DISPOSE OF PRESCRIPTION [...] Call your local pharmacy or go to http://Think Global.DesignGooroo/0S5Zr0u to find one close to you.3.Make use of household items: Use cat litter or old coffee grounds to dispose medications if other options arenot available. Mix your drugs with these household products, seal them in an airtight container andthrow it into the garbage. Call [facility]: [phone] to be sure your drugs can be [...] been reviewed and explained to me and LATA Rojas ALYSSA G understand my current condition and have read and understand these discharge instructions. I have received a written copy of the plan/instructions. If I have questions, I am aware that I should contact my doctor. Patient/Dispatcher Service Chief Signature: Date/Time: Relationship to Patient: Witness Name/Signature: Date/Time: [facility] department Discharge summary* INGA Pope: PERFORM Event Display: Depart Summary ED Authored Date: Discharge Instructions Thank you for allowing [facility] to assist you with your healthcare needs. The following is importantdischarge information regarding your hospital visit. Diagnosis from Today's Visit COVID-19 Sore throat - Adult Viral illness What to Do Next Instructions from Your Care Team No qualifying data available. Post Acute Orders No qualifying data available. You Need to Schedule the Following Appointments Follow Up with LEXA RODRIGUEZ MD When Within 2-4 days Where: [address] [place] [address]- Allergies Brethine Keflex Latex Procardia (hypotension) amoxicillin codeine (Amoxicillin 08-MAR-2005 05:15:52<!>) penicillin progesterone sulfa drug Medications Please ask your primary doctor or pharmacist before taking any other medication not listed, including over the counter drugs, herbal medications, vitamins and or supplements as they may interact withyour home medications. What How Much When Instructions Last Dose New prochlorperazine (Compazine use prochlorperazine ) 10 Milligram by mouth Three (3) times a day as needed for Nausea Duration: 5 Days Printed Prescription Unchanged busPIRone (busPIRone 15 mg oral tablet) 1 tab(s) by mouth Three (3) times a day Unchanged chlorzoxazone (chlorzoxazone 500 mg oral tablet) 1 tab(s) by mouth Four (4) times a day as needed for Migraine headache Unchanged gabapentin (gabapentin 600 mg oral tablet) take 1 tablet by mouth every 8 hours if needed Unchanged hydrOXYzine (hydrOXYzine hydrochloride 50 mg oral tablet) 1 tab(s) by mouth Four (4) times a day as needed for as needed for anxiety Unchanged lamoTRIgine (lamoTRIgine 100 mg oral tablet) 1 tab(s) Unchanged lidocaine topical (lidocaine 5% topical patch) apply 1 patch once daily as directed Unchanged lurasidone (lurasidone 80 mg oral tablet) 1 tab(s) by mouth Daily at bedtime Unchanged metoprolol (metoprolol succinate 25 mg oral TABLET extended release) 1 tab(s) by mouth Once a day Do not crush or chew (controlled release) Unchanged prazosin (Minipress) See instructions 1 mg Oral TID Unchanged traZODone (traZODone 50 mg oral tablet) 1 tab(s) by mouth Daily at bedtime Please take this list to your next doctor s visit. Bring all medications you take, including over the counter medications, herbals and other supplements with you to your doctor s visit. Patients and families are reminded to discard old lists and to update any records with all medication providers or retail pharmacies. Education Materials Viral Syndrome (Adult) A viral illness may cause a number of symptoms such as fever. Other symptoms depend on the part of the body that the virus affects. If it settles in your nose, throat, and lungs, it may cause cough, sore throat, congestion, runny nose, headache, earache and other ear symptoms, or shortness of breath. If it settles in your stomach and intestinal tract, it may cause nausea, vomiting, cramping, and diarrhea. Sometimes it causes generalized symptoms like aching all over, feeling tired, loss of energy, or loss of appetite. A viral illness usually lasts anywhere from several days to several weeks, but sometimes it lasts longer. In some cases, a more serious infection can look like a viral syndrome in the first few days of the illness. You may need another exam and additional tests to know the difference. Watch for thewarning signs listed below for when to seek medical advice. Home care Follow these guidelines for taking care of yourself at home: If symptoms are severe, rest at home for the first 2 to 3 days. Stay away from cigarette smoke - both your smoke and the smoke from others. You may use azhn-dpi-kbrgsei acetaminophen or ibuprofen for fever, muscle aching, and headache, unless another medicine was prescribed for this. If you have chronic liver or kidney disease or ever had a stomach ulcer or gastrointestinal bleeding, talk with your healthcare provider before using these medicines. No one who is younger than 18 and ill with a fever should take aspirin. It may cause severe disease or . Your appetite may be poor, so a light diet is fine. Avoid dehydration by drinking 8 to 12, 8-ounce glasses of fluids each day. This may include water; orange juice; lemonade; apple, grape, and cranberry juice; clear fruit drinks; electrolyte replacement and sports drinks; and decaffeinated teas andcoffee. If you have been diagnosed with a kidney disease, ask your healthcare provider how much andwhat types of fluids you should drink to prevent dehydration. If you have kidney disease, drinking too much fluid can cause it build up in the your body and be dangerous to your health. Aqhu-qoi-oarjrjv remedies won't shorten the length of the illness but may be helpful for symptoms such as cough, sore throat, nasal and sinus congestion, or diarrhea. Don't use decongestants if you have high blood pressure. Follow-up care Follow up with your healthcare provider if you do not improve over the next week. Call 911 Call 911 if any of the following occur: Convulsion Feeling weak, dizzy, or like you are going to faint Chest pain, or more than mild shortness of breath When to seek medical advice Call your healthcare provider right away if any of these occur: Cough with lots of colored sputum (mucus) or blood in your sputum Chest pain, shortness of breath, wheezing, or trouble breathing Severe headache; face, neck, or ear pain Severe, constant pain in the lower right side of your belly (abdominal) Continued vomiting (can t keep liquids down) Frequent diarrhea (more than 5 times a day); blood (red or black color) or mucus in diarrhea Feeling weak, dizzy, or like you are going to faint Extreme thirst Fever of 100.4 F (38 C) or higher, or as directed by your healthcare provider [phone] [employer]. [address] [place] [address], [place] [address]. All rights reserved. This information is not intended as a substitute for professional medical care. Always follow yourhealthcare professional's instructions. Additional Information VACCINATE! IT SAVES LIVES! Members of the community who have not yet received the COVID-19 vaccine and would like to receive it can visit one of [facility] vaccine clinics. There are many vaccine clinic locations within the [facility]. For locations and available times, please visit www.gettheshot.coronavirus.[place].gov/. It is important to note that some COVID mobile vaccine clinics are held outdoors and may be canceled in rainy or stormy conditions. To learn more about pediatric vaccinations (ages 5-11), we invite you to visit the [facility] webpage. https://www.[employer].org/pages/1958-Nlajv-Mhaqxldfusf-Hrsbhhrega-Etqzs-Qbx stions.htmlTo learn more about the COVID-19 vaccine, we invite you to visit the CDC website for a list of frequently asked questions. https://www.cdc.gov/coronavirus/2019-ncov/vaccines/faq.html [facility] Patient Portal Access Instructions: Stay connected with your healthcare team and access your personal medical information anytime with the [facility] Patient Portal. If you would like a full copy of your medical records please contact the [facility] Medical Records Department Monday through Monday between 8a.m. and 4:30p.m. Please follow the directions below to access the portal: 1.Access the email account you provided upon registration to the hospital.2.Look for an invitation email from [facility].3.Open the email and access the invitation link: Accept Invitation to [facility]4.Fill in the required webb to create your account. Sign into www.Funny Or Die with your username and password that you [...] you will allow to register on the [facility] Patient Portal for access to your information. You can also access the [facility] Patient Portal on the StyleSeat cruz. Simply click on Health Records under [employer] and then click on the [employer] logo. HOW TO SAFELY DISPOSE OF PRESCRIPTION [...] Call your local pharmacy or go to http://Think Global.DesignGooroo/8C3Sj9w to find one close to you.3.Make use of household items: Use cat litter or old coffee grounds to dispose medications if other options arenot available. Mix your drugs with these household products, seal them in an airtight container andthrow it into the garbage. [facility]: [phone] to be sure your drugs can be [...] a CHART COPY Signatures Patient Education Materials Viral Syndrome (Adult) Medication Leaflets My discharge plan and instructions have been reviewed and explained to me and I,FERNANDO GUIDO understand my current condition and have read and understand these discharge instructions. I have received a written copy of the plan/instructions. If I have questions, I am aware that I should contact my doctor. Patient/Dispatcher Service Chief Signature: Date/Time: Relationship to Patient: Witness Name/Signature: Date/Time: [facility] Evaluation + Plan note Future Appointments Appointment Date:06/29/2023 02:15:00 PM Scheduled Provider: Location:[facility] Appointment Type:[facility] Evaluation + Plan note Future Appointments Appointment Date:06/05/2023 09:30:00 AM Scheduled Provider: Location:[facility] Appointment Type:US Breast Bilateral Complete Appointment Date:06/29/2023 02:15:00 PM Scheduled Provider: Location:[facility] Appointment Type:[facility] Future Scheduled Tests Radiology* US Breast Bilateral Complete 06/05/23 [facility] Evaluation + Plan note Future Appointments Appointment Date:01/01/2024 04:00:00 PM Scheduled Provider: Location:[facility] Appointment Type:[facility] Evaluation note* Diagnosis Pseudoseizure- Primary Other convulsions [facility] note[facility] may be information available, but it has not been provided by the sender.[facility] Work Phone: Evaluation note* Diagnosis Stage 1 mild COPD by GOLD classification ([facility]) documented in this encounter [facility] note* Diagnosis Stage 1 mild COPD by GOLD classification ([facility]) documented in this encounter [facility] note* Diagnosis Headache disorder Headache Seizure disorder (HCC) Unspecified epilepsy without mention of intractable epilepsy documented in this encounter [facility] note* Diagnosis Intractable chronic migraine without aura and without status migrainosus- Primary Chronic migraine without aura, with intractable migraine, so stated, without mention of status migrainosus documented in this encounter [facility] note* Diagnosis Seizure-like activity (HCC) Other convulsions documented in this encounter [facility] note* Diagnosis perimenopause s/p TH- Primary Symptomatic states associated with artificial menopause Hormone replacement therapy (HRT) Need for prophylactic hormone replacement therapy (postmenopausal) Bipolar 1 disorder (HCC) Bipolar I disorder, most recent episode (or current) unspecified Seizure (HCC) Other convulsions Nipple discharge Other sign and symptom in breast documented in this encounter [facility] note* Diagnosis Intractable chronic migraine without aura and without status migrainosus- Primary Chronic migraine without aura, with intractable migraine, so stated, without mention of status migrainosus [facility]* Diagnosis Conversion disorder- Primary documented [facility]* Diagnosis Intractable chronic migraine without aura and without status migrainosus- Primary Chronic migraine without aura, with intractable migraine, so stated, without mention of status migrainosus documented [facility]* Diagnosis perimenopause s/p TH- Primary Symptomatic states associated with artificial menopause Family history of breast cancer Family history of malignant neoplasm of breast Bloody discharge from right nipple Other sign and symptom in breast Mastalgia Mastodynia Hormone replacement therapy (HRT) Need for prophylactic hormone replacement therapy (postmenopausal) documented [facility]* Diagnosis Bipolar 1 disorder (HCC)- Primary Bipolar I disorder, most recent episode (or current) unspecified documented in this encounter [facility] note* Diagnosis Chronic pain syndrome- Primary documented in this encounter [facility] note* Diagnosis Other chronic pain- Primary Myofascial pain syndrome Mylagia and myositis, unspecified Fibromyalgia Mylagia and myositis, unspecified Chronic pain disorder Chronic pain syndrome Myofascial pain syndrome Mylagia and myositis, unspecified documented in this encounter [facility] Narrative No data available for this section [facility] Hospital Discharge instructions* Attachments The following attachments cannot be sent through Care Everywhere. * Non-Epileptic Seizure: General Info (Chadian Hungarian) [facility] No data available for this section [facility] Progress note No data available for this section [facility] Summary Purpose Family History No Family [...] Found No data available for this section Advance Directives Documents on File Type Date Recorded Patient Dispatcher Service Chief Expl anation Advance Directives and Living Will DNR Documentation Power of Software Applications Specialist 06/21/2021 2:20 PM [facility] POA Documents on File Type Date Recorded Patient Dispatcher Service Chief Expl anation Advance Directive(s) 11/16/2018 2:28 PM Advance Directive(s) 11/15/2018 9:11 AM Advance Directive(s) 10/22/2018 10:59 AM Advance Directive(s) 01/23/2017 9:54 AM Advance Directive(s) 10/22/2015 9:05 PM Documents on File Type Date Recorded Patient Dispatcher Service Chief Expl anation Advance Directive(s) 11/16/2018 2:28 PM Advance Directive(s) 11/15/2018 9:11 AM Advance Directive(s) 10/22/2018 10:59 AM Advance Directive(s) 01/23/2017 9:54 AM Advance Directive(s) 10/22/2015 9:05 PM Documents on File Type Date Recorded Patient Dispatcher Service Chief Expl anation Living Will 12/03/2015 2:03 PM Healthcare Power of Software Applications Specialist 12/03/2015 2:03 PM Latest Code Status on File Code Status Date Activated Date Inactivated Comments Full Code 11/27/2015 11:09 PM 11/30/2015 4:54 PM Full Code 11/26/2015 9:58 PM 11/27/2015 9:00 PM Documents on File Type Date Recorded Patient Dispatcher Service Chief Expl anation Advance Directive(s) 10/22/2018 10:59 AM [...] Documents on File Type Date Recorded Patient Dispatcher Service Chief Expl anation Advance Directive(s) 10/22/2018 10:59 AM [...] Specialty Diagnoses / Procedures Referred By Hussein t Referred To Contact Breast Diseases Diagnoses Nipple discharge Procedures CONSULT TO [facility] OFFICE/OUTPATIENT [facility] 60-74 MINUTES Tristan Khan MD [address] [place] [address] Referral ID Status Reason Start Date Expiration Date Visits Requested Visits Authorized [id number] Authorized PCP Requested Referral 12/10/2021 03/10/2022 1 1 Specialty Diagnoses / Procedures Referred By Hussein t Referred To Contact Diagnoses Family history of breast cancer Procedures CONSULT TO MEDICAL GENETICS - CANCER MEDICAL GENETICS COUNSELING EACH 30 MINUTES Tristan Khan MD [address] [place] [address] [facility] [address] [place] [address] Referral ID Status Reason Start Date Expiration Date Visits Requested Visits Authorized [id number] Authorized PCP Requested Referral Auto-Generate d Referral 06/23/2023 06/22/2024 1 1 Specialty Diagnoses / Procedures Referred By Hussein fierro Referred To Contact Breast Diseases Diagnoses Family history of breast cancer Bloody discharge from right nipple Mastalgia Procedures CONSULT TO BREAST CENTER OFFICE/OUTPATIENT [facility] MDM 60-74 MINUTES Tristan Khan MD [address] [place] [address] Referral ID Status Reason Start Date Expiration Date Visits Requested Visits Authorized [id number] Authorized PCP Requested Referral 06/23/2023 09/21/2023 1 [...] DATE CREATED AUTHOR AUTHOR'S ORGANIZ ATION 07/22/2018 [facility] DATE CREATED AUTHOR AUTHOR'S ORGANIZ ATION 10/03/2018 [facility] DATE CREATED AUTHOR AUTHOR'S ORGANIZ ATION 08/06/2019 [facility] DATE CREATED AUTHOR AUTHOR'S ORGANIZ ATION 12/30/2020 [facility] DATE CREATED AUTHOR AUTHOR'S ORGANIZ ATION 08/07/2021 [facility] DATE CREATED AUTHOR AUTHOR'S ORGANIZ ATION 09/15/2021 [facility] DATE CREATED AUTHOR AUTHOR'S ORGANIZ ATION 11/14/2021 [facility] DATE CREATED AUTHOR AUTHOR'S ORGANIZ ATION 05/04/2022 [facility] DATE CREATED AUTHOR AUTHOR'S ORGANIZ ATION 06/08/2022 [facility] DATE CREATED AUTHOR AUTHOR'S ORGANIZ ATION 06/16/2023 [facility] ([place]) DATE CREATED AUTHOR AUTHOR'S ORGANIZ ATION 07/13/2023 [facility] DATE CREATED AUTHOR AUTHOR'S ORGANIZ ATION 07/23/2023 [facility] DATE CREATED AUTHOR AUTHOR'S ORGANIZ ATION 08/24/2023 [facility] DATE CREATED AUTHOR AUTHOR'S ORGANIZ ATION 08/31/2023 [facility] DATE CREATED AUTHOR AUTHOR'S ORGANIZ ATION 09/07/2023 [facility] DATE CREATED AUTHOR AUTHOR'S ORGANIZ ATION 09/19/2023 [facility] Reason for Visit (unrecogniz ed section and [...] Injection Specialty Diagnoses / Procedures Referred By Hussein fierro Referred To Contact HEADACHE Diagnoses Chronic migraine without aura, intractable, without status migrainosus Procedures BOTULINUM TOXIN A PER 1 UNIT CHEMODERVATE FACIAL/TRIGEM/CERV MUSC MIGRAINE Initial due 10/25/2021 Botox 200 units every 12 weeks for 1 year through [facility] buy and bill Preempt protocol J0585 Procedure -[id number] chemodervate facial/trigem/cerv musc migraine Eva Shin, GEOPHYSICAL OBSERVER.PHOTOENGRAVING MACHINE OPERATOR/TENDER [address] [place] [address] Neur Headache [address] [place] [address] Referral ID Status Reason Start Date Expiration Date V isits Requested Visits Authorized [id number] Authorized 11/02/2021 11/01/2022 4 4 Reason Comments New Patient Reason Comments Established Patient Botox Injection Specialty Diagnoses / Procedures Referred By Contac t Referred To Contact HEADACHE Diagnoses Chronic migraine without aura, intractable, without status migrainosus Procedures BOTULINUM TOXIN A PER 1 UNIT CHEMODERVATE FACIAL/TRIGEM/CERV MUSC MIGRAINE Botox renewal due now Botox 200 units every 12 weeks for 1 year through [facility] buy and bill Preempt protocol [id number] Procedure -[id number] chemodervate facial/trigem/cerv musc migraine Eva Shin, GEOPHYSICAL OBSERVER.PHOTOENGRAVING MACHINE OPERATOR/TENDER [address] [place] [address] Neur Headache [address] [place] [address] Referral ID Status Reason Start Date Expiration Date Visits Requested Visits Authorized [id number] Authorized OON Notification Letter 3 05/24/2024 5 5 Reason Comments Recheck Reason Onset Date Comments Psychiatric Problem 06/08/2023 Reason Comments Fibromyalgia Specialty Diagnoses / Procedures [facility] To Contact PAIN MANAGEMENT Diagnoses Encounter for general adult medical examination without abnormal findings Procedures NEW PATIENT VISIT LEVEL 1 OFFICE/OUTPATIENT NEW SF MDM 15-29 MINUTES OFFICE/OUTPATIENT NEW LOW MDM 30-44 MINUTES OFFICE/OUTPATIENT NEW MODERATE MDM 45-59 MINUTES OFFICE/OUTPATIENT NEW HIGH MDM 60-74 MINUTES Gordo Lafleur MD [address] [place] [address] [place] [address] Referral ID Status Reason Start Date Expiration Date V isits Requested Visits Authorized [id number] Closed OON/Self Pay Override 06/07/2023 07/23/2023 1 1 Reason Comments Results Genetic test results - negative Reason Comments Appointment Reason Comments Time change for September 25 procedure Reason Comments Pain Scheduled Active and Recently Administ ered Medications (unrecognized section and content) Care Teams (unrecognized sec tion and content) Care Team Personnel Name: LEXA RODRIGUEZ MD Position: No Access Member Role: Primary Care Physician Address: Address: [address] [place] [address] Care Team Related Persons Name: URIEL GUIDO Aircraft Cylinder Mechanic Relationship Specialty Start Date End Date Provider, Rachelle, PCP - General Family Medicine 07/06/21 Aircraft Cylinder Mechanic Relationship Specialty Start Date End Date Provider, Unlisted, PCP - General Family Medicine 07/06/21 Aircraft Cylinder Mechanic Relationship Specialty Start Date End Date Provider, Rachelle, PCP - General Family Medicine 07/06/21 Aircraft Cylinder Mechanic Relationship Specialty Start Date End Date Gaby Lerner MD [address] [place] [address] PCP - General Internal Medicine 07/30/20 Gaby Lerner MD [address] [place], [place] [address] Referring Internal Medicine 07/08/20 Ragini Lewis [address] [place], [place] [id number] Referring Orthopedics 08/26/21 Aircraft Cylinder Mechanic Relationship Specialty Start Date End Date Gaby Lerner MD [address] [place], [place] [address] PCP - General Internal Medicine 07/30/20 Gaby Lerner MD [address] [place] [address] Referring Internal Medicine 07/08/20 Ragini Lewis [address] [place] [address] Referring Orthopedics 08/26/21 Aircraft Cylinder Mechanic Relationship Specialty Start Date End Date Gaby Lerner MD [address] [place] [address] PCP - General Internal Medicine 07/30/20 Gaby Lerner MD [address] [place] [address] Referring Internal Medicine 07/08/20 Ragini Lewis [address] [place] [address] Referring Orthopedics 08/26/21 Aircraft Cylinder Mechanic Relationship Specialty Start Date End Date Gaby Lerner MD [address] [place] [address] PCP - General Internal Medicine 07/30/20 Gaby Lerner MD [address] [place] [address] Referring Internal Medicine 07/08/20 Ragini Lewis [address] [place] [address] Referring Orthopedics 08/26/21 Aircraft Cylinder Mechanic Relationship Specialty Start Date End Date Gaby Lerner MD [address] [place] [address] PCP - General Internal Medicine 07/30/20 Gaby Lerner MD [address] [place] [address] Referring Internal Medicine 07/08/20 Ragini Lewis [address] [place] [address] Referring Orthopedics 08/26/21 Aircraft Cylinder Mechanic Relationship Specialty Start Date End Date Gaby Lerner MD [address] [place] [address] PCP - General Internal Medicine 07/30/20 Gaby Lerner MD [address] [place] [address] Referring Internal Medicine 07/08/20 [address] [place] [address] Referring Orthopedics 08/26/21 Aircraft Cylinder Mechanic Relationship Specialty Start Date End Date Gaby Lerner MD [address] [place] [address] PCP - General Internal Medicine 07/30/20 Gaby Lerner MD [address] [place] [address] Referring Internal Medicine 07/08/20 [address] [place] [address] Referring Orthopedics 08/26/21 Aircraft Cylinder Mechanic Relationship Specialty Start Date End Date Gaby Lerner MD [address] [place] [address] PCP - General Internal Medicine 07/30/20 Gaby Lerner MD [address] [place] [address] Referring Internal Medicine 07/08/20 Ragini Lewis [address] [place] [address] Referring Orthopedics 08/26/21 Aircraft Cylinder Mechanic Relationship Specialty Start Date End Date Gaby Lerner MD [address] [place] [address] PCP - General Internal Medicine 07/30/20 Gaby Lerner MD [address] [place] [address] Referring Internal Medicine 07/08/20 Ragini Lewis [address] [place] [address] Referring Orthopedics 08/26/21 Aircraft Cylinder Mechanic Relationship Specialty Start Date End Date Gaby Lerner MD PCP - General Internal Medicine 07/30/20 Gaby Lerner MD Referring Internal Medicine 07/08/20 Ragini Lewis [address] [place] [address] Referring Orthopedics 08/26/21 Aircraft Cylinder Mechanic Relationship Specialty Start Date End Date Gaby Lerner MD PCP - General Internal Medicine 07/30/20 Gaby Lerner MD Referring Internal Medicine 07/08/20 Ragini Lewis [address] [place] [address] Referring Orthopedics 08/26/21 Phuong Yang DO [address] [address] Internal Medicine 05/01/23 Aircraft Cylinder Mechanic Relationship Specialty Start Date End Date Gaby Lerner MD PCP - General Internal Medicine 07/30/20 Gaby Lerner MD Referring Internal Medicine 07/08/20 Ragini Lewis [address] [facility] [place] [address] Referring Orthopedics 08/26/21 Phuong Yang DO [address] [place] [address] Internal Medicine 05/01/23 Aircraft Cylinder Mechanic Relationship Specialty Start Date End Date Gaby Lerner MD PCP - General Internal Medicine 07/30/20 Gaby Lerner MD Referring Internal Medicine 07/08/20 Ragini Lewis [address] [place] [address] Referring Orthopedics 08/26/21 Phuong Yang DO [address] [facility] [address] [place] [address] Internal Medicine 05/01/23 Aircraft Cylinder Mechanic Relationship Specialty Start Date End Date Gaby Lerner MD PCP - General Internal Medicine 07/30/20 Gaby Lerner MD Referring Internal Medicine 07/08/20 Ragini Lewis [address] [place] [address] Referring Orthopedics 08/26/21 Phuong Yang DO [address] [address] [place] [address] Internal Medicine 05/01/23 Aircraft Cylinder Mechanic Relationship Specialty Start Date End Date Gaby Lerner MD PCP - General Internal Medicine 07/30/20 Gaby Lerner MD Referring Internal Medicine 07/08/20 Ragini Lewis [address] [place] [address] Referring Orthopedics 08/26/21 Phuong Yang DO [address] [facility] [address] [place] [address] Internal Medicine 05/01/23 Aircraft Cylinder Mechanic Relationship Specialty Start Date End Date Gaby Lerner MD PCP - General Internal Medicine 07/30/20 Gaby Lerner MD Referring Internal Medicine 07/08/20 Ragini Lewis [address] [place] [address] Referring Orthopedics 08/26/21 Phuong Yang DO [address] [place] [address] Internal Medicine 05/01/23 Aircraft Cylinder Mechanic Relationship Specialty Start Date End Date Gaby Lerner MD PCP - General Internal Medicine 07/30/20 Gaby Lerner MD Referring Internal Medicine 07/08/20 Ragini Lewis [address] [place] [address] Referring Orthopedics 08/26/21 Phuong Yang DO [address] [place] [address] Internal Medicine 05/01/23 Source Comments (unrecognize d section and content) In the event this informatio n is protected by the Federal Confidentiality of Alcohol and Drug Abuse Patient Records regulations: The Federal rules restrict any use of the information to criminally investigate or prosecute any alcohol or drug abuse patient.[facility] the event this information is protected by the Federal Confidentiality of Alcohol and Drug Abuse Patient Records regulations: The Federal rules restrict any use of the information to criminally investigate or prosecute any alcohol or drug abuse patient.[facility] the event this information is protected by the Federal Confidentiality of Alcohol and Drug Abuse Patient Records regulations: The Federal rules restrict any use of the information to criminally investigate or prosecute any alcohol or drug abuse patient.[facility] the event this information is protected by the Federal Confidentiality of Alcohol and Drug Abuse Patient Records regulations: The Federal rules restrict any use of the information to criminally investigate or prosecute any alcohol or drug abuse patient.[facility] the event this information is protected by the Federal Confidentiality of Alcohol and Drug Abuse Patient Records regulations: The Federal rules restrict any use of the information to criminally investigate or prosecute any alcohol or drug abuse patient.[facility] the event this information is protected by the Federal Confidentiality of Alcohol and Drug Abuse Patient Records regulations: The Federal rules restrict any use of the information to criminally investigate or prosecute any alcohol or drug abuse patient.[facility] the event this information is protected by the Federal Confidentiality of Alcohol and Drug Abuse Patient Records regulations: The Federal rules restrict any use of the information to criminally investigate or prosecute any alcohol or drug abuse patient.[facility] the event this information is protected by the Federal Confidentiality of Alcohol and Drug Abuse Patient Records regulations: The Federal rules restrict any use of the information to criminally investigate or prosecute any alcohol or drug abuse patient.[facility] the event this information is protected by the Federal Confidentiality of Alcohol and Drug Abuse Patient Records regulations: The Federal rules restrict any use of the information to criminally investigate or prosecute any alcohol or drug abuse patient.[facility] the event this information is protected by the Federal Confidentiality of Alcohol and Drug Abuse Patient Records regulations: The Federal rules restrict any use of the information to criminally investigate or prosecute any alcohol or drug abuse patient.[facility] the event this information is protected by the Federal Confidentiality of Alcohol and Drug Abuse Patient Records regulations: The Federal rules restrict any use of the information to criminally investigate or prosecute any alcohol or drug abuse patient.[facility] Hospital[facility] the event this information is protected by the Federal Confidentiality of Alcohol and Drug Abuse Patient Records regulations: The Federal rules restrict any use of the information to criminally investigate or prosecute any alcohol or drug abuse patient.[facility] Hospital[facility] the event this information is protected by the Federal Confidentiality of Alcohol and Drug Abuse Patient Records regulations: The Federal rules restrict any use of the information to criminally investigate or prosecute any alcohol or drug abuse patient.[facility] Hospital[facility] the event this information is protected by the Federal Confidentiality of Alcohol and Drug Abuse Patient Records regulations: The Federal rules restrict any use of the information to criminally investigate or prosecute any alcohol or drug abuse patient.[facility] Hospital[facility] the event this information is protected by the Federal Confidentiality of Alcohol and Drug Abuse Patient Records regulations: The Federal rules restrict any use of the information to criminally investigate or prosecute any alcohol or drug abuse patient.[facility] Hospital[facility] the event this information is protected by the Federal Confidentiality of Alcohol and Drug Abuse Patient Records regulations: The Federal rules restrict any use of the information to criminally investigate or prosecute any alcohol or drug abuse patient.[facility] Hospital[facility] the event this information is protected by the Federal Confidentiality of Alcohol and Drug Abuse Patient Records regulations: The Federal rules restrict any use of the information to criminally investigate or prosecute any alcohol or drug abuse patient.[facility] Hospital[facility] the event this information is protected by the Federal Confidentiality of Alcohol and Drug Abuse Patient Records regulations: The Federal rules restrict any use of the information to criminally investigate or prosecute any alcohol or drug abuse patient.[facility] Hospital[facility] the event this information is protected by the Federal Confidentiality of Alcohol and Drug Abuse Patient Records regulations: The Federal rules restrict any use of the information to criminally investigate or prosecute any alcohol or drug abuse patient.[facility] FOR RECORDS PERTAINING TO PATIENTS WHO [...] BE BASED ON THE PRIMARY CLINICAL RECORDS. [facility] [employer] [facility]. provides no warranty or guarantee of the accuracy or completeness of information in this document.
[2023-09-22 15:43] LABS: Absolute Lymphocyte Count 1.67 X10^3/uL (0.83-4.51); Absolute Neutrophil Count 2.3 X10^3/uL (2.0-7.7); Basophil# 0.03 X10^3/uL; Basophil% 0.6 % (0-1); Eosinophils% 4.2 % (0-5); Hematocrit 39.2 % (37-47); Hemoglobin 13.5 g/dL (12.0-15.0); Lymphocyte # 1.67 X10^3/ul (0.83-4.51); Lymphocyte % 35.1 % (19-41); Mean Corp Hgb Conc 34.4 g/dL (32-36); Mean Corpuscular Volume 87.1 fL (81-99); Mean Platelet Vol. 11.6 fl (6.2-12.0); Monocyte# 0.57 X10^3/uL; NRBC Flagged by Analyzer 0 % (0-5); Neutrophil # 2.27 X10^3/uL (2.7-7.7); Neutrophil % 47.7 % (47-70); Platelet Count 228 K/mm3 (150-450); RBC Distribution Width CV 11.2 % (11.6-14.6); RBC Distribution Width SD 35.7 fl (35.1-43.9); White Blood Count 4.8 K/mm3 (4.4-11.0)
[2023-09-22 16:03] LABS: Vitamin D,25 Hydroxy 19.6 ng/mL
[2023-09-22 16:05] LABS: Hemoglobin A1c 5.3 % (3.8-5.6)
[2023-09-22 16:06] LABS: ALB/GLOB Ratio 1.2 RATIO (0.9-2.4); AST(SGOT) 14 U/L (15-37); Alanine Aminotransfer ALT/SGPT 17 U/L (13-56); Albumin, Serum 3.8 g/dL (3.2-5.0); Alkaline Phosphatase 64 U/L (45-117); Anion Gap 3 (5-15); BUN 13 mg/dL (7-18); BUN/Creat Ratio 15.8 RATIO (10-20); Calcium,Total 8.8 mg/dL (8.5-10.1); Chloride 109 mmol/L (98-107); Cholesterol 114 mg/dL (200); Creatinine, Serum 0.82 mg/dL (0.55-1.02); EST Glomerular Filtration Rate 87 mL/min (>60); Est Glom Filt Rate - Afr Amer 105 mL/min (>60); Ferritin 75 ng/mL (8-252); Globulin 3.3 g/dL (2.2-4.2); Glucose 95 mg/dL (74-106); High Density Lipoprotein 32 mg/dL; Iron 53 ug/dL (50-170); Iron Binding Capacity,Total 282 ug/dL (250-450); Magnesium 2.3 mg/dL (1.6-2.6); Potassium 3.2 mmol/L (3.5-5.1); Protein, Total 7.1 g/dL (6.4-8.2); Sodium Level 138 mmol/L (136-145); Thyroid Stim Hormone (TSH) 1.75 uIU/mL (0.358-3.74); Triglycerides 104 mg/dL; Very Low Density Lipoprotein 21 mg/dL (5-40)
== END | disposition home or self-care (01) ==
LOC: BIMLAB 12:01
PROVIDERS: PCP Nurse Practitioner; Referring Provider Nurse Practitioner; Visit Provider Nurse Practitioner
DX: Z00.00 Encounter for general adult medical examination without abnormal findings (principal); D64.9 Anemia, unspecified; M62.838 Other muscle spasm; R73.9 Hyperglycemia, unspecified; E55.9 Vitamin D deficiency, unspecified
CPT/HCPCS: 36415; 80053; 80061; 82306; 82728; 83036; 83540; 83550; 83735; 84443; 85025

== ENCOUNTER 2023-10-06 17:10 | Inpatient (IN) | payer MEDICAID, SELFPAY ==
[2023-10-06] VITALS (48 sets, daily range): BP systolic 81–136; BP diastolic 48–98; PULSE 62–110; RESP 11–27; TEMP 36–36.9; O2SAT 97–100; BMI 26.4; BMI 25.2
--- NOTE | 2023-10-06 18:41 | CT_ITS ---
We are attempting to reach an attending provider to discuss findings. An addendum with communication details will be sent when the communication is complete. INDICATION: Neuro deficit, acute, stroke suspected EXAMINATION: CT BRAIN - CT Head Stroke Protocol W/O Contrast Injection TECHNIQUE: Multiple axial images were obtained of the head without intravenous contrast. A radiation dose optimization technique was used for this scan. IV Contrast dosage and agent: None. COMPARISON: No relevant prior comparison study available FINDINGS: BRAIN PARENCHYMA: No intra- or extra-axial hemorrhage. No evidence of acute infarct. No intracranial mass or mass effect. There is preservation of the caputo/white matter interface. Posterior fossa structures are unremarkable. CSF SPACES: Appropriate for age. No hydrocephalus. Basal cisterns are patent. CALVARIUM, SKULL BASE, PARANASAL SINUSES AND MASTOID AIR CELLS: Clear. No discrete lytic or blastic abnormalities. ORBITS: Both globes, extraocular muscles, optic nerves and retrobulbar fat appear unremarkable. ASPECTS Score for Acute Strokes: 10 CT/STROKE Brain/Head without Cont IMPRESSION: Negative Brain CT without contrast. Electronically Signed: Tu Anglin MD at 18:55 EDT ,
--- NOTE | 2023-10-06 18:42 | CT_ITS ---
We are attempting to reach an attending provider to discuss findings. An addendum with communication details will be sent when the communication is complete. STUDY: CTA HEAD AND NECK WITH CONTRAST REASON FOR EXAM: Female, 28 years old. Neuro deficit, acute, stroke suspected RADIATION DOSAGE (If Supplied By Facility): CTDIvol = ( 16.34 ) mGy, DLP = ( 613.05 ) mGycm TECHNIQUE: CT angiography was performed with a multi-detector CT scanner. Data acquisition was obtained from the skull base through the vertex following intravenous administration of IV 100mL Isovue-370. MIP images were reconstructed from the axial data set. Post-processing of the angiographic images was performed, with multiplanar reformation and 3D reconstruction. Individualized dose optimization techniques were used for this CT. COMPARISON: No relevant priors. FINDINGS: Normal bilateral petrous carotid arteries. Normal right cavernous carotid artery with a normal supraclinoid bifurcation. Normal left cavernous carotid artery with a normal supraclinoid bifurcation. Normal right A1 segments of the anterior cerebral artery. Normal left A1 segments of the anterior cerebral artery. Normal intact anterior communicating artery (ACOM). Normal bilateral A2 segments of the anterior cerebral arteries. Normal right M1 and M2 segments of the middle cerebral arteries, with a normal M1 bifurcation. Normal left M1 and M2 segments of the middle cerebral arteries, with a normal M1 bifurcation. Normal right posterior communicating artery (PCOM). Normal left posterior communicating artery (PCOM). Normal bilateral vertebral arteries. Normal basilar artery with a normal basilar bifurcation. The visualized bilateral superior cerebellar (SCA) arteries are normal. Normal bilateral P1, P2 and visualized P3 segments of the posterior cerebral arteries. There is no demonstrated aneurysm of the qu[place] of [place]. There is no demonstrated abnormality of the visualized brain. AORTIC ARCH: Normal visualized aortic arch. Normal origins of the brachiocephalic, left common carotid, and left subclavian arteries. RIGHT CAROTID ARTERIES: Normal right common carotid artery (CCA). Normal right common carotid bulb. Normal origin of the right internal carotid (ICA) artery without a hemodynamically significant stenosis. Normal visualized cervical portion of the right internal carotid artery. Normal origin of the right external carotid artery (ECA). LEFT CAROTID ARTERIES: Normal left common carotid artery (CCA). Normal left common carotid bulb. Normal origin of the left internal carotid (ICA) artery without a hemodynamically significant stenosis. Normal visualized cervical portion of the left internal carotid artery. Normal origin of the left external carotid artery (ECA). VERTEBRAL ARTERIES: Normal bilateral vertebral arteries. CT/STROKE CTA Head AND Neck W/Con IMPRESSION: Normal CTA Head and neck with contrast. Electronically Signed: Tu Anglin MD at 19:43 EDT ,
--- NOTE | 2023-10-06 18:45 | EDS_ITS ---
HPI History of Present Illness Chief Complaint: Dizziness Detail of Chief Complaint: Patient has numerous complaints please see HPI narrative Informant: patient and spouse/S.O. Onset/Context/Timing Onset: Hours (Weakness started 3 days ago, flaccid at 11 AM today) Context: Gradual Onset and Sudden Onset Timing: Continuous Quality and Location: Positive for Right Facial Droop, Right Face Paresthesia, Right Arm Parasthesia, Right Leg Parasthesia, Right Arm Weakness, Right Leg Weakness, Slurred Speech, Expressive Aphasia and Difficulty with Ambulation Onset: Per significant other onset was 3 days ago worse with total loss of functio Current Severity: Severe Maximum Severity: Severe Worsened by: Not applicable Relieved by: Nothing Associated Symptoms Associated Symptoms: Positive for Headache (3 days ago); Negative for Nausea, Vomiting or Chest Pain Narrative Narrative: Patient is a 28-year-old female with history of stroke December 2022. She was cared for at [facility]. She contacted neurologist she is scheduled to see who recommended she come to the emergency department. She told Tamie the bedside nurse symptoms started a month ago. She told the triage nurse 3 days ago she told me at 11 AM. I was unaware when she told the bedside nurse or the triage nurse. Patient became angry and stated I was not given enough time to answer questions. Her recollection of events was confusing and why I was asking very specific questions. When she was taken to radiology suite her significant other informed me that her symptoms started 3 days ago. She had difficulty going up the steps without significant help by him. Prior he would walk up with her because she had weakness on the right side. She was discharged from nursing facility 1 month ago. She had total loss of use starting today at 11 AM. She also reports blurred vision on the left side which is new since 11 AM. In light of this the stroke alert was canceled. Patient is not a candidate for TNK and she is outside the window for thrombectomy. Prior similar symptoms: Yes Recent Illness/Hospitalization: No [facility] Medical History Acute back pain with sciatica Anemia Asthma Back problem Breast lump Bronchitis Chronic bronchitis COPD (chronic obstructive pulmonary disease) CVA (cerebral vascular accident) Deafness in left ear Depression Frequent UTI GERD (gastroesophageal reflux disease) History of broken finger Hormone deficiency Hypoglycemia IBS (irritable bowel syndrome) Migraines Neuropathy Osteoarthritis Physical exam, pre-employment Preeclampsia Seizures Seizures Stomach ulcer SVT (supraventricular tachycardia) Tunnel vision Vision problems Home Medications cholecalciferol (vitamin D3) 25 mcg (1,000 unit) capsule 2 cap PO DAILY 11/22/19 [History Last Taken Unknown] albuterol sulfate 90 mcg/actuation aerosol inhaler 2 puff inhalation DAILY PRN PRN Sob &/Or Wheezing #8.5 grams 09/22/23 [Rx Last Taken 10/06/23] buspirone 15 mg tablet 15 mg PO TID anxiety 09/22/23 [History Last Taken 10/06/23 13:00] chlorzoxazone 500 mg tablet 500 mg PO TID muscle spasms #60 tabs 09/22/23 [Rx Last Taken Unknown] gabapentin 600 mg tablet 600 mg PO TID 09/22/23 [History Last Taken 10/06/23 13:00] hydroxyzine HCl 50 mg tablet 50 mg PO QHS PRN anxiety 09/22/23 [History Last Taken Unknown] lamotrigine 100 mg tablet (Lamictal) 100 mg PO DAILY mood stabilizer 09/22/23 [History Last Taken Unknown] lidocaine HCl 5 %-menthol 1 % topical patch 1 patch topical Q12H pain 09/22/23 [History Last Taken Unknown] lurasidone 60 mg tablet (Latuda) 60 mg PO DAILY 09/22/23 [History Last Taken 10/05/23 21:30] omeprazole 40 mg capsule,delayed release 40 mg PO QHS #90 caps 09/22/23 [Rx Last Taken Unknown] polyethylene glycol 3350 17 gram oral powder packet 17 g PO PRN PRN Constipation #30 ea 09/22/23 [Rx Last Taken Unknown] prazosin 1 mg capsule (Minipress) 1 mg PO QHS 09/22/23 [History Last Taken Unknown] prochlorperazine maleate 10 mg tablet (Compazine) 10 mg PO PRN PRN nausea #30 tabs 09/22/23 [Rx Last Taken Unknown] compress.stocking,knee,reg,lrg #2 ea 09/26/23 [Rx Last Taken Unknown] potassium chloride 10 mEq capsule,extended release 10 meq PO DAILY #30 caps 09/26/23 [Rx Last Taken 10/05/23 21:30] comp.stocking,thigh,short,smal #12 ea 10/03/23 [Rx Last Taken Unknown] ibuprofen 600 mg tablet 600 mg PO Q8H PRN fever or pain 10/06/23 [History Last Taken Unknown] Allergy/AdvReac Type Severity Reaction Status Date / Time adhesive tape Allergy Severe Rash Verified 10/06/23 17:11 latex Allergy Severe Rash Verified 10/06/23 17:11 benzonatate Allergy Rash Verified 10/06/23 17:11 [From Tessalon Perles] cephalexin [From Keflex] Allergy Hives Verified 10/06/23 17:11 clindamycin Allergy Anaphylaxis Verified 10/06/23 17:11 dicyclomine [From Bentyl] Allergy Itching Verified 10/06/23 17:11 meloxicam [From Mobic] Allergy Chest Verified 10/06/23 17:11 tightness metronidazole [From Flagyl] Allergy Itching Verified 10/06/23 17:11 nifedipine [From Procardia] Allergy Angioedema Verified 10/06/23 17:11 oseltamivir [From Tamiflu] Allergy Hives Verified 10/06/23 17:11 Penicillins Allergy Anaphylaxis Verified 10/06/23 17:11 prednisone Allergy Rash Verified 10/06/23 17:11 progesterone Allergy Hives Verified 10/06/23 17:11 Sulfa (Sulfonamide Allergy Hives Verified 10/06/23 17:11 Antibiotics) terbutaline [From Brethine] Allergy Angioedema Verified 10/06/23 17:11 ondansetron AdvReac Other Verified 10/06/23 17:11 [From Zofran (as hydrochloride)] Family History Mother Alcoholism Asthma Cancer Anxiety and depression Seizures Anesthesia complication Cervical cancer Colon cancer Diabetes Heart disease Hormone disorder Liver disease Mental disorder Ovarian cancer Parkinson disease Psychiatric care Respiratory care problem Seizures Epilepsy Severe allergy CVA (cerebral vascular accident) Suicide attempt Thyroid disorder Uterine cancer Father Anxiety and depression Alcoholism Seizures Diabetes Myocardial infarction, Onset Age: 39 Cervical cancer Colon cancer Heart disease Hypertension Hormone disorder Liver disease Mental disorder Parkinson disease Psychiatric care Respiratory care problem Suicide attempt CVA (cerebral vascular accident) Thyroid disorder Severe allergy Grandmother Cancer uterine Thyroid disorder COPD (chronic obstructive pulmonary disease) Hypertension Hyperlipemia Asthma Sister Cystic fibrosis Asthma Autoimmune disease Brother Cystic fibrosis Mental retardation Aunt Breast cancer Aunt Cancer ovarian Unknown Cancer lung Grandmother Breast cancer Aunt Breast cancer Surgical History H/O medial meniscus repair of right knee H/O: hysterectomy History of colonoscopy History of left oophorectomy History of repair of ACL History of repair of anterior cruciate ligament of left knee History of tubal ligation History of wisdom tooth extraction S/P ACL reconstruction S/P meniscectomy Social History adopted: Yes household members: spouse current occupational status: unemployed pets and animals: Yes pets and animals: dog(s) leisure activities: other Smoking Status: Current every day smoker tobacco type: cigarettes Tobacco: How many years used: 12 quit status: considering quitting alcohol intake: current alcohol intake frequency: a few times a month substance use type: former substance user, 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 diet: other what type of physical activity do you participate in: none frequency: daily jerrod/sikhism: L[employer]-Day seatbelt use: always do you feel safe at home: No (pt states that she and her are homeless living with someone ) additional social history: pt states she and her do not feel safe in their living situation, and are working getting out of the living situation they are in this nurse relayed info to Zohreh Barnes NP ROS ROS ED Constitutional Constitutional ED: Denies chills, fever(s), subjective or sweats Eyes Eyes: Reports blurry vision left; Denies diplopia ENT ENT ED: Denies ear pain, rhinorrhea or sore throat Cardiovascular Cardiovascular: Denies chest pain or palpitations Respiratory/Chest Respiratory/Chest: Denies cough, dyspnea or dyspnea on exertion Gastrointestinal Gastrointestinal: Denies abdominal pain, nausea or vomiting Musculoskeletal Musculoskeletal: Denies arthralgias, back pain, myalgias or neck pain Integumentary Denies rash Neurologic Neurologic: Reports headache(s), paresthesias and weakness Psychiatric Psychiatric: Reports depression Hematologic/Lymphatic Hematologic/Lymphatic: Denies easy bleeding or easy bruising EXAM Physical Exam Const Vital Signs: 10/06/23 17:14 10/06/23 18:46 10/06/23 18:40 Temperature 96.8 F L Temperature Source Temporal Pulse Rate 110 H 80 Respiratory Rate 18 21 H Blood Pressure 105/81 H 117/75 Blood Pressure Mean 89 89 Pulse Ox 98 99 Oxygen Delivery Method Room Air Room Air Room Air 10/06/23 18:45 10/06/23 18:55 10/06/23 19:00 Temperature Temperature Source Pulse Rate 74 80 86 Respiratory Rate 16 15 14 Blood Pressure 116/74 117/72 110/70 Blood Pressure Mean 88 87 83 Pulse Ox 99 100 100 Oxygen Delivery Method Room Air Room Air Room Air 10/06/23 19:15 10/06/23 19:56 10/06/23 19:30 Temperature Temperature Source Pulse Rate 82 72 79 Respiratory Rate 18 18 20 H Blood Pressure 110/74 104/60 Blood Pressure Mean 86 74 Pulse Ox 100 99 100 Oxygen Delivery Method Room Air Room Air Room Air 10/06/23 19:45 10/06/23 20:00 10/06/23 20:15 Temperature Temperature Source Pulse Rate 77 84 76 Respiratory Rate 21 H 18 20 H Blood Pressure 108/94 H 100/66 104/76 Blood Pressure Mean 98 77 85 Pulse Ox 100 98 97 Oxygen Delivery Method Room Air Room Air Room Air 10/06/23 20:30 10/06/23 20:45 10/06/23 20:45 Temperature 97.8 F Temperature Source Pulse Rate 79 78 79 Respiratory Rate 15 18 18 Blood Pressure 105/75 104/54 L 104/54 L Blood Pressure Mean 85 70 70 Pulse Ox 99 99 99 Oxygen Delivery Method Room Air Room Air 10/06/23 19:26 10/06/23 19:30 10/06/23 19:35 Temperature Temperature Source Pulse Rate 81 86 78 Respiratory Rate 26 H 23 H 20 H Blood Pressure 104/60 99/73 Blood Pressure Mean 74 82 Pulse Ox 100 100 100 Oxygen Delivery Method 10/06/23 19:40 10/06/23 19:45 10/06/23 19:50 Temperature Temperature Source Pulse Rate 75 81 Respiratory Rate 17 15 Blood Pressure 102/69 108/94 H 107/71 Blood Pressure Mean 80 100 81 Pulse Ox 99 100 Oxygen Delivery Method Room Air 10/06/23 19:55 10/06/23 20:00 10/06/23 20:05 Temperature Temperature Source Pulse Rate 74 82 77 Respiratory Rate 17 18 11 L Blood Pressure 111/71 100/66 99/68 Blood Pressure Mean 79 77 78 Pulse Ox 99 99 100 Oxygen Delivery Method 10/06/23 20:10 10/06/23 20:15 10/06/23 20:20 Temperature Temperature Source Pulse Rate 72 Respiratory Rate 17 Blood Pressure 105/90 H 104/76 93/64 Blood Pressure Mean 96 86 74 Pulse Ox 97 Oxygen Delivery Method 10/06/23 20:25 10/06/23 20:30 10/06/23 20:31 Temperature Temperature Source Pulse Rate 72 83 79 Respiratory Rate 17 14 18 Blood Pressure 101/68 105/75 Blood Pressure Mean 79 84 Pulse Ox 99 98 100 Oxygen Delivery Method Room Air 10/06/23 20:35 10/06/23 20:40 10/06/23 20:45 Temperature Temperature Source Pulse Rate 73 86 83 Respiratory Rate 16 16 16 Blood Pressure 98/67 123/70 H 104/54 L Blood Pressure Mean 78 84 64 Pulse Ox 99 99 99 Oxygen Delivery Method 10/06/23 20:50 10/06/23 20:55 10/06/23 21:00 Temperature Temperature Source Pulse Rate 79 84 75 Respiratory Rate 19 H 27 H 21 H Blood Pressure 105/85 H 136/98 H 108/78 Blood Pressure Mean 93 109 88 Pulse Ox 100 98 Oxygen Delivery Method Room Air Room Air 10/06/23 21:30 10/06/23 21:00 10/06/23 21:05 Temperature Temperature Source Pulse Rate 72 80 77 Respiratory Rate 19 H 18 19 H Blood Pressure 98/68 108/78 102/74 Blood Pressure Mean 78 87 84 Pulse Ox 100 99 98 Oxygen Delivery Method Room Air 10/06/23 21:10 10/06/23 21:11 10/06/23 21:16 Temperature Temperature Source Pulse Rate 76 74 Respiratory Rate 15 23 H Blood Pressure 81/48 L 105/80 Blood Pressure Mean 59 88 Pulse Ox 98 98 Oxygen Delivery Method 10/06/23 21:20 10/06/23 21:25 10/06/23 21:30 Temperature Temperature Source Pulse Rate 78 72 Respiratory Rate 20 H 24 H Blood Pressure 105/76 100/88 H 98/68 Blood Pressure Mean 86 94 78 Pulse Ox 99 98 Oxygen Delivery Method Room Air 10/06/23 21:35 Temperature Temperature Source Pulse Rate 70 Respiratory Rate 19 H Blood Pressure 108/61 Blood Pressure Mean 76 Pulse Ox 98 Oxygen Delivery Method Positive well nourished, well developed and obese General Appearance ED: well developed and NAD Nutritional Appearance: obese HEENT Reports moist mucous membranes atraumatic Eyes PERRL and EOMs intact bilaterally Eyes Narrative: No vision right eye. Blurred vision left eye. There is no nystagmus. General Eye ED: Negative for pale conjunctiva or scleral icterus Neck no lymphadenopathy and supple Chest Wall inspection of chest normal and palpation of chest normal Resp normal respiratory effort and clear to auscultation bilaterally Cardio no murmurs GI normal to inspection, nondistended, normoactive bowel sounds, soft to palpation, non-tender, non-distended and no masses Auscultation: hypoactive bowel sounds Back/Spine no CVA tenderness Extremity normal to inspection General Extremety ED: Negative for deformity, edema or tenderness General Extremity: Negative for deformity or edema Neuro oriented x3, No CN's II-XII intact bilaterally and No no sensory deficits noted Lynch Coma Scale: document GCS findings Spontaneous Obeys Commands Oriented 15 Sensorium / Orientation: alert Speech: Negative for speech normal Gait (Neuro): Negative for normal gait Motor Exam: Negative for strength 5/5 throughout Psych Mood & Affect: depressed Skin no wounds Lesions: no lesions Rashes: no rashes NIHSS NIHSS Initial: 1a Level of Consciousness: 1 1b LOC Questions (Score 2 if aphasic/stupor): 0 1c LOC Commands (Only score 1st attempt): 0 2 Best Gaze (If aphasic, use reflexive mvmts.): 0 3 Visual: 1 (Complete loss of vision right eye since prior stroke) 4 Facial Palsy: 1 5 Motor Arm Right (UN = amputation/fusion): 4 5 Motor Arm Left: 0 6 Motor Leg Right: 4 6 Motor Leg Left: 0 7 Limb ataxia (Only + if out of proportion): 0 8 Sensory (Aphasia/stupor=0 or 1, coma=2): 1 9 Best Language: 0 10 Dysarthria (mute, coma=2, intubated=UN): 1 11 Extinction and Inattention (only scored if +): 1 Total Score: 14 MDM MDM MDM Narrative Medical decision making narrative: Stroke team was called. It was subsequent canceled after significant informing of the onset being 3 days ago and completion of stroke today at 11 AM. With review of records and there is note the patient has history of pseudoseizures bipolar depressive disorder as well as CVA. I do not believe this is a conversion reaction. Vitals are marked for tachycardia and borderline low blood pressure. She is not febrile. She is not hypoxic or tachypneic. History & Record Review Additional record(s) reviewed:: Prior ED visit and Prior labs Lab Data Attestation: I reviewed the patient's lab results. Lab results narrative: CBC is normal. Basic metabolic panel is normal. Troponin is normal. Labs: Laboratory Results - last 24 hr 10/06/23 10/06/23 18:38 18:42 WBC 7.2 RBC 4.49 Hgb 13.5 Hct 39.2 MCV 87.3 MCH 30.1 MCHC 34.4 RDW Std Deviation 37.5 RDW Coeff of Jo 11.8 Plt Count 270 MPV 10.9 Immature Gran % (Auto) 0.100 Neut % (Auto) 51.0 Lymph % (Auto) 34.4 [place] % (Auto) 9.2 Eos % (Auto) 3.6 Baso % (Auto) 1.7 H Absolute Neuts (auto) 3.7 Absolute Lymphs (auto) 2.47 Nucleated RBC % 0 PT 14.3 INR 1.1 APTT 29.6 Sodium 138 Potassium 3.8 Chloride 112 H Carbon Dioxide 21.0 Anion Gap 5 BUN 15 Creatinine 0.72 Estim Creat Clear Calc 118.70 Est GFR (MDRD) Af Amer 122 Est GFR (MDRD) Non-Af 101 BUN/Creatinine Ratio 20.8 H Glucose 94 Calcium 8.6 Troponin I High Sens 3 POC Glucose 92 Radiography Diagnostic Testing: Clinical Impression(s) from Imaging Studies Brain CT 10/06/23 18:41 IMPRESSION: Negative Brain CT without contrast. Electronically Signed: Tu Anglin MD at 18:55 EDT , ADDENDUM: 10/06/23 1904 IMPRESSION: Negative Brain CT without contrast. N.B. : The above Results were Read Back by Tu Anglin MD to Stef William MD, and understanding confirmed on 10/06/2023 18:56:57 (ET). Electronically Signed: Tu Anglin MD at 18:55 EDT , Head/Neck CTA 10/06/23 18:42 IMPRESSION: Normal CTA Head and neck with contrast. Electronically Signed: Tu Anglin MD at 19:43 EDT , ADDENDUM: 10/06/23 1950 IMPRESSION: Normal CTA Head and neck with contrast. N.B. : The above Results were Read Back by Tu Anglin MD to Jairo Mari MD, and understanding confirmed on 10/06/2023 19:43:30 (ET). Electronically Signed: Tu Anglin MD at 19:43 EDT , Chest X-Ray 10/06/23 19:35 IMPRESSION: Normal x-ray examination of the chest. Electronically Signed: Tu Anglin MD at 20:19 EDT , EKG Initial EKG: Attestation: I personally reviewed and interpreted this EKG as follows: Interpretation: Sinus Rhythm (Rate is 73. EKG is normal. LA interval 150 ms. Cures duration 94 ms. QT duration 384 ms [place] normal.) Management Discussion w/another healthcare provider: Hospitalist and Radiologist (I was contacted by radiologist separately for the CT without contrast and CTA of the head and neck.) Stroke Documentation Questions Stroke Team Activated: Yes Reviewed Inclusion/Exclusion criteria: No IV Thrombolytic Administered: No No contraindications from thrombolytic administration: No Discharge Plan Triage Chief Complaint: Dizziness ED Provider: Stef William Dx/Rx/DC Orders Clinical Impression: Bipolar disorder, Acute CVA (cerebrovascular accident) Prescriptions: No Action cholecalciferol (vitamin D3) 25 mcg (1,000 unit) capsule 2 cap PO DAILY buspirone 15 mg tablet 15 mg PO TID lurasidone [Latuda] 60 mg tablet 60 mg PO DAILY Rx Instructions: must administer with food (at least 350 calories) lamotrigine [Lamictal] 100 mg tablet 100 mg PO DAILY prazosin [Minipress] 1 mg capsule 1 mg PO QHS hydroxyzine HCl 50 mg tablet 50 mg PO QHS PRN (Reason: anxiety) gabapentin 600 mg tablet 600 mg PO TID lidocaine HCl-menthol 5-1 % adhesive patch,medicated 1 patch topical Q12H Patient Comments: right leg,back, and shoulder omeprazole 40 mg capsule,delayed release(DR/EC) 40 mg PO QHS Qty: 90 1RF polyethylene glycol 3350 17 gram powder in packet 17 g PO PRN PRN (Reason: Constipation) Qty: 30 2RF prochlorperazine maleate [Compazine] 10 mg tablet 10 mg PO PRN PRN (Reason: nausea ) Qty: 30 1RF albuterol sulfate 90 mcg/actuation HFA aerosol inhaler 2 puff INHALATION DAILY PRN PRN (Reason: Sob &/Or Wheezing) Qty: 8.5 2RF chlorzoxazone 500 mg tablet 500 mg PO TID Qty: 60 0RF (DME) compress.stocking,knee,reg,lrg Misc See Rx Instructions .ROUTE .MEDSUPPLY Qty: 2 0RF Rx Instructions: As directed ibuprofen 600 mg tablet 600 mg PO Q8H PRN (Reason: fever or pain) Rx Instructions: do not take with naproxen or other NSAIDs potassium chloride 10 mEq capsule, extended release 10 meq PO DAILY Qty: 30 1RF (DME) comp.stocking,thigh,short,smal Misc See Rx Instructions .Route Qty: 12 0RF Rx Instructions: As directed Primary Care Provider: Zohreh Barnes Referrals: Zohreh Barnes, SLAVA-C [Primary Care Provider] - Disposition Disposition: Acute Care Hospital [facility]
[2023-10-06 19:08] LABS: Absolute Lymphocyte Count 2.47 X10^3/uL (0.83-4.51); Absolute Neutrophil Count 3.7 X10^3/uL (2.0-7.7); Basophil# 0.12 X10^3/uL; Basophil% 1.7 % (0-1); Eosinophil# 0.26 X10^3/uL; Eosinophils% 3.6 % (0-5); Hematocrit 39.2 % (37-47); Hemoglobin 13.5 g/dL (12.0-15.0); Lymphocyte # 2.47 X10^3/ul (0.83-4.51); Lymphocyte % 34.4 % (19-41); Mean Corp Hgb Conc 34.4 g/dL (32-36); Mean Corpuscular Hgb 30.1 pg (27.0-32.0); Mean Corpuscular Volume 87.3 fL (81-99); Mean Platelet Vol. 10.9 fl (6.2-12.0); Monocyte# 0.66 X10^3/uL; Monocyte% 9.2 % (0-10); NRBC Flagged by Analyzer 0 % (0-5); Neutrophil # 3.65 X10^3/uL (2.7-7.7); Platelet Count 270 K/mm3 (150-450); RBC Distribution Width CV 11.8 % (11.6-14.6); RBC Distribution Width SD 37.5 fl (35.1-43.9); Red Blood Count 4.49 M/mm3 (4.2-5.4); White Blood Count 7.2 K/mm3 (4.4-11.0)
[2023-10-06 19:11] LABS: Bedside Glucose 92 mg/dL (74-106)
[2023-10-06 19:19] LABS: International Normalized Ratio 1.1; Prothrombin Time (Protime)PT. 14.3 SECONDS (11.7-14.9)
[2023-10-06 19:20] LABS: Partial Thromboplast Time 29.6 Seconds (24.1-36.2)
[2023-10-06 19:32] LABS: Anion Gap 5 (5-15); BUN 15 mg/dL (7-18); BUN/Creat Ratio 20.8 RATIO (10-20); Calcium,Total 8.6 mg/dL (8.5-10.1); Chloride 112 mmol/L (98-107); Creatinine, Serum 0.72 mg/dL (0.55-1.02); EST Glomerular Filtration Rate 101 mL/min (>60); Est Glom Filt Rate - Afr Amer 122 mL/min (>60); Glucose 94 mg/dL (74-106); Potassium 3.8 mmol/L (3.5-5.1); Sodium Level 138 mmol/L (136-145); Troponin-I HS 3 pg/mL (3.0-54.0)
--- NOTE | 2023-10-06 19:35 | RAD_ITS ---
STUDY: X-RAY CHEST REASON FOR EXAM: Female, 28 years old. Neuro deficit, acute, stroke suspected TECHNIQUE: Single AP portable view of the chest. COMPARISON: 09/16/2023. FINDINGS: The lungs are clear and expanded. There is no demonstrated pleural abnormality. Normal size heart. Normal mediastinum and mir. Normal visualized pulmonary arteries. Normal visualized aortic arch and descending thoracic aorta. Normal visualized thoracic spine. Normal visualized ribs, clavicles, and shoulders. There is no demonstrated abnormality of the visualized soft tissue structures of the upper abdomen. RAD/Chest 1 View IMPRESSION: Normal x-ray examination of the chest. Electronically Signed: Tu Anglin MD at 20:19 EDT ,
--- NOTE | 2023-10-06 20:06 | PCM.HP.STD ---
[facility] - General General Date of Admission: 10/06/23 Date of Service: 10/06/23 Chief Complaint: Dizziness with Right Facial Droop and Right Hemiparesis. HPI Narrative FERNANDO GUIDO, is a 28 F with a past medical history of tobacco abuse; with previously diagnosed Asthma/COPD, pseudoseizures, preeclampsia, neuropathy, deaf in Left ear, migraine headaches, Bipolar disorder, IBS, GERD, history of back pain with sciatica and history of CVA (12/2022); still on estradiol patch with recent discharge from an ECF ~1 month ago who presents to [facility] ER complaining of dizziness with Right facial droop and Right hemiparesis. Ms. Guido reports her symptoms began approximately 3 days ago when she noticed the abrupt-onset of Right-sided weakness when she began to have difficulty walking up a flight of steps. She then contacted her neurologist around 11:00 AM today who instructed her to come in to the ER for further evaluation and treatment. She also admits to headache, blurriness of the vision in her Left eye with the ER provider noting a poor recollection of recent events and significant irritability. She denies associated fever, chills, nausea or vomiting. In the ER she was diagnosed with a suspected subacute CVA causing Right-sided weakness with a CTA of the head and neck that was unremarkable for acute or chronic pathologic changes and she was then admitted to the PCU for ongoing care for a stay that is expected to be greater than 48 hours. [facility] Medical History Acute back pain with sciatica Anemia Asthma Back problem Breast lump Bronchitis Chronic bronchitis COPD (chronic obstructive pulmonary disease) CVA (cerebral vascular accident) Deafness in left ear Depression Frequent UTI GERD (gastroesophageal reflux disease) History of broken finger Hormone deficiency Hypoglycemia IBS (irritable bowel syndrome) Migraines Neuropathy Osteoarthritis Physical exam, pre-employment Preeclampsia Seizures Seizures Seizures Stomach ulcer SVT (supraventricular tachycardia) Tunnel vision Vision problems Home Medications cholecalciferol (vitamin D3) 25 mcg (1,000 unit) capsule 2 cap PO DAILY 11/22/19 [History Last Taken Unknown] albuterol sulfate 90 mcg/actuation aerosol inhaler 2 puff inhalation DAILY PRN PRN Sob &/Or Wheezing #8.5 grams 09/22/23 [Rx Last Taken 10/06/23] buspirone 15 mg tablet 15 mg PO TID anxiety 09/22/23 [History Last Taken 10/06/23 13:00] chlorzoxazone 500 mg tablet 500 mg PO TID muscle spasms #60 tabs 09/22/23 [Rx Last Taken Unknown] gabapentin 600 mg tablet 600 mg PO TID 09/22/23 [History Last Taken 10/06/23 13:00] hydroxyzine HCl 50 mg tablet 50 mg PO QHS PRN anxiety 09/22/23 [History Last Taken Unknown] lamotrigine 100 mg tablet (Lamictal) 100 mg PO DAILY mood stabilizer 09/22/23 [History Last Taken Unknown] lidocaine HCl 5 %-menthol 1 % topical patch 1 patch topical Q12H pain 09/22/23 [History Last Taken Unknown] lurasidone 60 mg tablet (Latuda) 60 mg PO DAILY 09/22/23 [History Last Taken 10/05/23 21:30] omeprazole 40 mg capsule,delayed release 40 mg PO QHS #90 caps 09/22/23 [Rx Last Taken Unknown] polyethylene glycol 3350 17 gram oral powder packet 17 g PO PRN PRN Constipation #30 ea 09/22/23 [Rx Last Taken Unknown] prazosin 1 mg capsule (Minipress) 1 mg PO QHS 09/22/23 [History Last Taken Unknown] prochlorperazine maleate 10 mg tablet (Compazine) 10 mg PO PRN PRN nausea #30 tabs 09/22/23 [Rx Last Taken Unknown] compress.stocking,knee,reg,lrg #2 ea 09/26/23 [Rx Last Taken Unknown] potassium chloride 10 mEq capsule,extended release 10 meq PO DAILY #30 caps 09/26/23 [Rx Last Taken 10/05/23 21:30] comp.stocking,thigh,short,smal #12 ea 10/03/23 [Rx Last Taken Unknown] ibuprofen 600 mg tablet 600 mg PO Q8H PRN fever or pain 10/06/23 [History Last Taken Unknown] Allergy/AdvReac Type Severity Reaction Status Date / Time adhesive tape Allergy Severe Rash Verified 10/06/23 17:11 latex Allergy Severe Rash Verified 10/06/23 17:11 benzonatate Allergy Rash Verified 10/06/23 17:11 [From Tessalon Perles] cephalexin [From Keflex] Allergy Hives Verified 10/06/23 17:11 clindamycin Allergy Anaphylaxis Verified 10/06/23 17:11 dicyclomine [From Bentyl] Allergy Itching Verified 10/06/23 17:11 meloxicam [From Mobic] Allergy Chest Verified 10/06/23 17:11 tightness metronidazole [From Flagyl] Allergy Itching Verified 10/06/23 17:11 nifedipine [From Procardia] Allergy Angioedema Verified 10/06/23 17:11 oseltamivir [From Tamiflu] Allergy Hives Verified 10/06/23 17:11 Penicillins Allergy Anaphylaxis Verified 10/06/23 17:11 prednisone Allergy Rash Verified 10/06/23 17:11 progesterone Allergy Hives Verified 10/06/23 17:11 Sulfa (Sulfonamide Allergy Hives Verified 10/06/23 17:11 Antibiotics) terbutaline [From Brethine] Allergy Angioedema Verified 10/06/23 17:11 ondansetron AdvReac Other Verified 10/06/23 17:11 [From Zofran (as hydrochloride)] Family History Mother Alcoholism Asthma Cancer Anxiety and depression Seizures Anesthesia complication Cervical cancer Colon cancer Diabetes Heart disease Hormone disorder Liver disease Mental disorder Ovarian cancer Parkinson disease Psychiatric care Respiratory care problem Seizures Epilepsy Severe allergy CVA (cerebral vascular accident) Suicide attempt Thyroid disorder Uterine cancer Father Anxiety and depression Alcoholism Seizures Diabetes Myocardial infarction, Onset Age: 39 Cervical cancer Colon cancer Heart disease Hypertension Hormone disorder Liver disease Mental disorder Parkinson disease Psychiatric care Respiratory care problem Suicide attempt CVA (cerebral vascular accident) Thyroid disorder Severe allergy Grandmother Cancer uterine Thyroid disorder COPD (chronic obstructive pulmonary disease) Hypertension Hyperlipemia Asthma Sister Cystic fibrosis Asthma Autoimmune disease Brother Cystic fibrosis Mental retardation Aunt Breast cancer Aunt Cancer ovarian Unknown Cancer lung Grandmother Breast cancer Aunt Breast cancer Surgical History H/O medial meniscus repair of right knee H/O: hysterectomy History of colonoscopy History of left oophorectomy History of repair of ACL History of repair of anterior cruciate ligament of left knee History of tubal ligation History of wisdom tooth extraction S/P ACL reconstruction S/P meniscectomy Social History adopted: Yes household members: spouse current occupational status: unemployed pets and animals: Yes pets and animals: dog(s) leisure activities: other Smoking Status: Current some day smoker tobacco type: cigarettes Tobacco: How many years used: 12 quit status: considering quitting alcohol intake: current alcohol intake frequency: a few times a month substance use type: former substance user, 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 HENT: Patient admits to chronic hearing loss in the left ear but she denies headache, denies stuffy nose, denies sore throat EYES: Patient admits to transient blurriness of the vision in her left eye as per HPI. Resp: Denies cough, denies shortness of breath Cardiac: Denies chest pain or palpitations. GI: Denies abdominal pain, denies changes in bowel, denies nausea or vomiting. : Denies changes in urination Extremity: Denies swelling Musculoskeletal: Feels somewhat generally weak and unwell Neuro: Patient admits to generalized headache with right-sided paresthesias and right-sided weakness as per HPI. Heme: Denies any bleeding or bruising Skin: Denies rashes Psychiatric: Patient admits to moderate depression. Endocrine: No polyuria, polydipsia or polyphagia. The rest of the 14 point ROS was negative except for positives in HPI. Vital Signs Vital Signs Vital Signs: 10/06/23 17:14 10/06/23 18:46 10/06/23 18:40 Temperature 96.8 F L Temperature Source Temporal Pulse Rate 110 H 80 Respiratory Rate 18 21 H Blood Pressure 105/81 H 117/75 Blood Pressure Mean 89 89 Pulse Ox 98 99 Oxygen Delivery Method Room Air Room Air Room Air 10/06/23 18:45 10/06/23 18:55 10/06/23 19:00 Temperature Temperature Source Pulse Rate 74 80 86 Respiratory Rate 16 15 14 Blood Pressure 116/74 117/72 110/70 Blood Pressure Mean 88 87 83 Pulse Ox 99 100 100 Oxygen Delivery Method Room Air Room Air Room Air 10/06/23 19:15 10/06/23 19:56 10/06/23 19:30 Temperature Temperature Source Pulse Rate 82 72 79 Respiratory Rate 18 18 20 H Blood Pressure 110/74 104/60 Blood Pressure Mean 86 74 Pulse Ox 100 99 100 Oxygen Delivery Method Room Air Room Air Room Air 10/06/23 19:26 10/06/23 19:30 10/06/23 19:35 Temperature Temperature Source Pulse Rate 81 86 78 Respiratory Rate 26 H 23 H 20 H Blood Pressure 104/60 99/73 Blood Pressure Mean 74 82 Pulse Ox 100 100 100 Oxygen Delivery Method 10/06/23 19:40 10/06/23 19:45 10/06/23 19:50 Temperature Temperature Source Pulse Rate 75 81 Respiratory Rate 17 15 Blood Pressure 102/69 108/94 H 107/71 Blood Pressure Mean 80 100 81 Pulse Ox 99 100 Oxygen Delivery Method Room Air 10/06/23 19:55 Temperature Temperature Source Pulse Rate 74 Respiratory Rate 17 Blood Pressure 111/71 Blood Pressure Mean 79 Pulse Ox 99 Oxygen Delivery Method Weight Weight: 163 lb 5.8 oz Body Mass Index (BMI) 26.4 Physical Exam Const alert, oriented x3, no apparent distress and average body habitus General Appearance: cooperative HEENT normocephalic, head/scalp atraumatic, hearing grossly normal bilaterally and moist oral mucous membranes HEENT Narrative: Patient has poor dentition. Neck no lymphadenopathy and supple Resp normal respiratory effort, no retractions, no use of accessory muscles and clear to auscultation bilaterally Cardio regular rate and regular rhythm GI normal to inspection, nondistended, normoactive bowel sounds, soft to palpation, non-tender and non-distended Extremity normal to inspection and full ROM Skin Skin Narrative: Patient has no evidence of rash at this time. Neuro oriented x3, CN's II-XII intact bilaterally and moves all extremities Neuro Narrative: Patient has mild right facial droop and moderate right-sided weakness. Sensorium / Orientation: awake, alert, oriented to person, oriented to place and oriented to time Speech: speech normal Psych affect normal Results Medical Records Data Attestation: I reviewed the patient's medical records Lab / Micro Data Attestation: I reviewed the patient's lab results. 10/06/23 18:42 10/06/23 18:42 Labs: Laboratory Results - last 24 hr 10/06/23 18:38: POC Glucose 92 10/06/23 18:42: WBC 7.2, RBC 4.49, Hgb 13.5, Hct 39.2, MCV 87.3, MCH 30.1, MCHC 34.4, RDW Std Deviation 37.5, RDW Coeff of Jo 11.8, Plt Count 270, MPV 10.9, Immature Gran % (Auto) 0.100, Neut % (Auto) 51.0, Lymph % (Auto) 34.4, Pine % (Auto) 9.2, Eos % (Auto) 3.6, Baso % (Auto) 1.7 H, Absolute Neuts (auto) 3.7, Absolute Lymphs (auto) 2.47, Nucleated RBC % 0, PT 14.3, INR 1.1, APTT 29.6, Sodium 138, Potassium 3.8, Chloride 112 H, Carbon Dioxide 21.0, Anion Gap 5, BUN 15, Creatinine 0.72, Estim Creat Clear Calc 118.70, Est GFR (MDRD) Af Amer 122, Est GFR (MDRD) Non-Af 101, BUN/Creatinine Ratio 20.8 H, Glucose 94, Calcium 8.6, Troponin I High Sens 3 Imaging Radiology Impression Brain CT 10/06/23 18:41 IMPRESSION: Negative Brain CT without contrast. Electronically Signed: Tu Anglin MD at 18:55 EDT , ADDENDUM: 10/06/23 1904 IMPRESSION: Negative Brain CT without contrast. N.B. : The above Results were Read Back by Tu Anglin MD to Stef William MD, and understanding confirmed on 10/06/2023 18:56:57 (ET). Electronically Signed: Tu Anglin MD at 18:55 EDT , Head/Neck CTA 10/06/23 18:42 IMPRESSION: Normal CTA Head and neck with contrast. Electronically Signed: Tu Anglin MD at 19:43 EDT Reading Location ID and State: [facility] / [place] , Service support , ADDENDUM: 10/06/23 1950 IMPRESSION: Normal CTA Head and neck with contrast. N.B. : The above Results were Read Back by Tu Anglin MD to Jairo Mari MD, and understanding confirmed on 10/06/2023 19:43:30 (ET). Electronically Signed: Tu Anglin MD at 19:43 EDT Reading Location ID and State: [facility] / [place] , Service support , Assessment & Plan Assessment/Plan (1) Acute CVA (cerebrovascular accident): (2) Headache: QUALIFIERS: Headache type: unspecified Headache chronicity pattern: unspecified pattern Intractability: not intractable Qualified Code(s): R51.9 - Headache, unspecified (3) Adverse drug reaction: QUALIFIERS: Encounter type: initial encounter Qualified Code(s): T50.905A - Adverse effect of unspecified drugs, medicaments and biological substances, initial encounter (4) Tobacco abuse: (5) Bipolar disorder: QUALIFIERS: Active/Remission status: remission status unspecified Qualified Code(s): F31.9 - Bipolar disorder, unspecified PLAN: Plan 1. Subacute CVA causing Right-sided weakness with symptom-onset 3 days ago in the setting of a known previous CVA in December 2022 - Admit to PCU. Continue ECASA and statin. Check MRI of the brain without contrast to confirm suspicion of subacute CVA. Check echocardiogram to evaluate LVEF. Check carotid doppler to evaluate for stenosis. 2. History of tobacco abuse in the setting of HRT with estradiol with suspected adverse drug interaction likely precipitating #1 - Tobacco cessation will be strongly encouraged and estradiol patch will be stopped. Nicotine patch offered to control cravings. Patient was educated about the potential dangers of smoking combined with HRT. 3. Bipolar disorder with history of pseudoseizures complicating #1 & #2 - Resume home regimen plus give prn Xanax for breakthrough symptoms. 4. Neuropathy - Stable. 5. Deaf in Left ear - Noted. 6. Migraine headaches - Stable. 7. IBS and GERD - Continue home medications as previous. 8. Tobacco abuse; with previously diagnosed Asthma/COPD - Stable with no evidence of flare. Give nebulizers prn. 9. History of preeclampsia - Noted. 10. Deaf in Left ear - Stable. 11. History of back pain with sciatica - Stable. Give Tylenol prn. 12. DVT prophylaxis - Lovenox 40 mg sq daily. Total time: Approximately 55 minutes. Charges/Coding Visit Charges Inpatient E&M: 56015 Init Hosp L2
--- NOTE | 2023-10-06 21:49 | ECHOCS_ITS ---
Reason For Study: TIA/Stroke Procedure This was a 2D Doppler, Color Flow transthoracic echocardiogram. Contrast injection was performed. The study was technically difficult. Exam performed portable in patient room. Left Ventricle Normal size and thickness. The left ventricular ejection fraction is 55 %. Normal diastololic function. Right Ventricle Normal right ventricle. Atria The left and right atria are normal. Bubble contrast study is positive for PFO. Mitral Valve Trivial mitral valve insufficiency. Tricuspid Valve Trivial tricuspid valve insufficiency. Normal pulmonary artery pressure. Aortic Valve Trisinus/trileaflet aortic valve. Pulmonic Valve The pulmonic valve is not well visualized. Great Vessels Normal sized aortic root. Pericardium/Pleural No pericardial effusion. Medication Performed a rapid injection of agitated mix of 9 cc saline and 1cc air to assess for atrial septal defect. Diluted definity 1ml given slow IV push to enhance endocardial definition. MMode/2D Measurements & Calculations LVIDd: 3.9 cm IVSd: 0.83 cm Ao root diam: 2.4 cm LVIDs: 2.7 cm LVPWd: 0.82 cm RVDd: 2.8 cm FS: 30.6 % LAV(MOD-bp): 9.6 ml LVAd ap4: 21.3 cm2 SV(MOD-sp4): 31.0 ml LAV(MOD-bp) Indexed: 5.2 ml/m2 LVLd ap4: 7.2 cm LAV(MOD-sp2): 8.5 ml EDV(MOD-sp4): 54.1 ml LAV(MOD-sp4): 10.0 ml EDV(sp4-el): 53.1 ml LVAs ap4: 12.5 cm2 LVLs ap4: 6.1 cm ESV(MOD-sp4): 23.2 ml ESV(sp4-el): 21.9 ml EF(MOD-sp4): 57.2 % EF(sp4-el): 58.7 % SV(sp4-el): 31.2 ml LA A4 area: 7.2 cm2 LA dimension(2D): 1.9 cm RA A4 area: 7.2 cm2 TAPSE: 2.1 cm Time Measurements MV dec time: 0.25 sec Doppler Measurements & Calculations MV E max juan: 84.3 cm/sec Lat Peak E' Juan: 12.6 cm/sec Med Peak E' Juan: 10.3 cm/sec MV A max juan: 51.7 cm/sec E/E' lat: 6.7 E/E' med: 8.2 MV E/A: 1.6 MV dec slope: 337.2 cm/sec2 Ao V2 max: 105.1 cm/sec LV V1 max: 85.9 cm/sec Ao max P.4 mmHg LV V1 max P.9 mmHg Ao V2 mean: 75.7 cm/sec Ao mean P.5 mmHg Ao V2 VTI: 17.3 cm PA V2 max: 78.3 cm/sec TR max juan: 169.9 cm/sec TR max P.5 mmHg ECHO/Echo Complete W/ Contrast Interpretation Summary The study was technically difficult. The left ventricular ejection fraction is 55 %. Bubble contrast study is positive for PFO. Ordering Physician: Anthony Antoine Referring Physician: Zohreh Barnes Performed By: Ramona Herbert, RACHEL, RVT
--- OUTSIDE RECORDS SUMMARY | 2023-10-06 22:10 | XMS RPT_ITS | CCD ---
Author Name Unknown Address [address] [place] [address] Organization [facility] Care Team Providers Care Riding Instructor Name Role Phone Hermilo CRUZ, Iman Barros Unavailable [phone] SOCRATES GARIBAY Unavailable Unavailable SCOUT NAVA Unavailable Unavailab UDAY Dewitt Unavailable Unavailable SABA SINCLAIR Referring Unavailable MELCHOR GIPSON Primary Care Unavailable Hermilo CRUZ, Iman Barros Unavailable [phone] GABY LERNER Primary Care Unavailable JUNIOR CRUZ, DR SHEIKH Admitting Unavail nicholas PACHECO MD, DR SHEIKH Consulting Unavail able JUNIOR CRUZ, DR SHEIKH Attending Unavail able RUTH MONAHAN [...] nicholas PACHECO MD, DR SHEIKH Consulting Unavail able JUNIOR CRUZ, DR SHEIKH Attending Unavail able Jayesh [phone], Jorge [phone] Co nsulting Unavailable NONE, NONE Consulting Unavailable Dante CRUZ, Unspecified Primary Care Provider U navailable KIRSTEN CARPENTER Attending UnavailKIRSTEN Jackson Admitting Unavailgail Alicia MD, Lincoln Harrell Unavailable Provider , Unlisted Primary Care Provider Unav ailGaby Griggs MD Unavailable [phone] Gaby Lerner MD Primary Care Provider Ragini Lewis Unavailable CHAVA PHUONG E Referring Unavailab le July Attending Unavailable PROVIDER, UNLISTED Primary Care Unavailable ALEXANDRABRANDEN DonohueN Referring Unavailable TYSON ALEXANDRA Attending Unavailable BJORNSTAD, [...] Unavailable Gaby Lerner MD Primary Care Provider [phone] Ragini Lewis Unavailable JENNIFER CRUZ, DR LEXA Rosario Primary Care Physician [phone] [place] DO, Phuong E Unavailable WADE, MUSA [...] Attending Unavailable ROSE DONNELLY Admitting Unavailable ANDRZEJROSE BARKLEY Primary Care Unavailable ROSE DONNELLY Attending Unavailable ELLENCREEK, PHUONG E Referring Unavailab NNAMDI [place] Admitting Unavailable NNAMDI CHRISTOPHER Primary Care Unavailable NNAMDI CHRISTOPHER Attending Unavailable RICHCREEK, PHUONG E Consulting Unavailab le PROVIDER, UNKNOWN Consulting Unavailable ROSE DONNELLY Admitting Unavailable ANDRZEJROSE BARKLEY Primary Care Unavailable ROSE DONNELLY Attending Unavailable WADE, MUSA T Admitting Unavailable WADE, MUSA T Primary Care Unavailable WADE, MUSA T Attending Unavailable RICHCREEK, PHUONG E Consulting Unavailab le PROVIDER, UNKNOWN Consulting Unavailable RICHCREEK, PHUONG E Admitting Unavailab le RICHCREEK, PHUONG E Primary Care Unavailab le RICHCREEK, PHUONG E Attending Unavailab GABY Antunez Primary Care Unavailable TRISTAN KHAN Referring Unavailable [...] Attending Unavailable TIFFANY DUMONT Admitting Unavailable ANDRZEJ III, ROSE MARES (HIST) Referring Unavailable KALISETTI, GABY Primary Care Unavailable DAT VALLEJO Attending Unavailable DEMAR PEREZ Consulting Unavailable KALISETTI, GABY Primary Care Unavailable PHYLLIS RICHTER Attending Unavailable GORDO LAFLEUR Attending Unavailable GORDO LAFLEUR Referring Unavailable KALISETTI, GABY Primary Care Unavailable KALISETTI, GABY Primary Care Unavailable KALISETTI, GABY Primary Care Unavailable CLAUDE RAI Attending Unavailable KALISETTI, GABY Primary Care Unavailable JENNIFER CRUZ, DR LEXA Rosario Primary Care Unavailable AYDIN CRUZ, DR SANYA Villatoro Attending Mary RODRIGUEZ MD, DR LEXA Rosario Attending Unavailable JENNIFER CRUZ, DR LEXA Rosario Primary Care Unavailable HEATHER CRUZ, DR TREVINO Attending Unavailab Radha CRUZ, DR LEXA Rosario Primary Care Unavailable JENNIFER CRUZ, DR LEXA Rosario Primary Care Unavailable MARIELLE ORTEGA DO Attending Unavailable EVA SHIN Attending Unavailable KALISETTI, GABY Primary Care Unavailable KALISETTI, GABY Primary Care Unavailable RAFITA CHAVEZ Attending Unavaila EVA Martin Attending Unavailable KALISETTI, GABY Primary Care Unavailable EVA SHIN Attending Unavailable EVA SHIN Referring Unavailable KALISETTI, GABY Primary Care Unavailable STONE ALVAREZ Attending Unavailable KALISETTI, GABY Referring Unavailable KALISETTI, GABY Primary Care Unavailable TRISTAN KHAN Referring Unavailable KALISETTI, GABY Primary Care Unavailable TRISTAN KHAN Referring Unavailable TEODORA MORAN Attending Unavailable KALISETTI, GABY Primary Care Unavailable KALISETTI, GABY Primary Care Unavailable TRISTAN KHAN Attending Unavailable Leonela CRUZ, [place] Primary Care Provider Allergies Allergy Classification Reported Allergen(s) Allergy Type Date of Onset Reaction(s) Facility Anticholinergics (1 source) Dicyclomine Drug Allergy [facility] Repository benzonatate (1 source) benzonatate Drug Allergy [facility] Repository Cephalosporins (antibiotic) (1 source) Cephalexin Drug Allergy [facility] Repository Corticosteroids (1 source) prednisoLONE Drug Allergy [facility] Repository desflurane (1 source) desflurane Drug Allergy [facility] Repository Latex (1 source) Latex; Translations: [Latex] Substance Allergy [facility] Repository Lincosamides (antibiotic) (1 source) Clindamycin Drug Allergy [facility] Repository NIFEdipine (1 source) NIFEdipine Drug Allergy [facility] Repository Nitroimidazoles (antibiotic) (1 source) metroNIDAZOLE Drug Allergy [facility] Repository NSAIDs (1 source) meloxicam Drug Allergy [facility] Repository Ondansetron (1 source) Ondansetron Drug Allergy [facility] Repository Opioid Agonists (1 source) Codeine Drug Allergy [facility] Repository Penicillins (antibiotic) (2 sources) Amoxicillin; Translations: [Penicillins] Drug Allergy [facility] Repository Progesterone (1 source) Progesterone Drug Allergy [facility] Repository sevoflurane (1 source) sevoflurane Drug Allergy [facility] Repository Succinylcholine (1 source) Succinylcholine Drug Allergy [facility] Repository Sulfonamides (antibiotic) (1 source) Sulfonamides (Antibiotic) Drug Allergy [facility] Repository Terbutaline (1 source) Terbutaline Drug Allergy [facility] Repository (20 sources) NIFEdipine; Translations: [NIFEDIPINE] Drug Allergy Other (See Comments), Hives, Other [facility] Repository (20 sources) terbutaline; Translations: [TERBUTALINE] Drug Allergy Other (See Comments), Hives, Other [facility] Repository (1 source) CLINDAMYCIN/LINCOMYCI N; Translations: [CLINDAMYCIN/LINCOMYC IN] Propensity to adverse reactions to drug (disorder) [facility] Repository (1 source) OTHER; Translations: [OTHER] Propensity to adverse reactions to food (disorder) [facility] Repository (4 sources) SULFA ANTIBIOTICS; Translations: [SULFA ANTIBIOTICS] Propensity to adverse reactions to drug (disorder) Hives [facility] Repository (20 sources) benzonatate; Translations: [BENZONATATE] Drug Allergy 018 Other (See Comments), Rash [facility] Repository (20 sources) Cephalexin; Translations: [CEPHALEXIN] Drug Allergy Nausea And Vomiting, Anaphylaxis, Hives [facility] Repository (20 sources) Clindamycin; Translations: [CLINDAMYCIN] Drug Allergy Hives, Shortness of Breath [facility] Repository (20 sources) Dicyclomine; Translations: [DICYCLOMINE] Drug Allergy Hives, Itching [facility] Repository (20 sources) Latex; Translations: [LATEX] Propensity to adverse reactions (disorder) Anaphylaxis, Rash [facility] Repository (20 sources) meloxicam; Translations: [MELOXICAM] Drug Allergy Other (See Comments), Other: See Comments [facility] Repository (20 sources) metroNIDAZOLE; Translations: [METRONIDAZOLE HCL] Drug Allergy Itching [facility] Repository (20 sources) Ondansetron; Translations: [ONDANSETRON HCL (PF)] Drug Allergy Swelling [facility] Repository (20 sources) Penicillin; Translations: [PENICILLIN] Drug Allergy [facility] Repository (20 sources) predniSONE; Translations: [PREDNISONE] Drug Allergy Rash, Swelling [facility] Repository (20 sources) Sulfonamides (Antibiotic); Translations: [SULFA (SULFONAMIDE ANTIBIOTICS)] Propensity to adverse reactions (disorder) [facility] Repository (20 sources) PROGESTERONE AQUEOUS; Translations: [PROGESTERONE AQUEOUS] Propensity to adverse reactions (disorder) Rash [facility] Repository (4 sources) Ondansetron Drug Allergy [facility] (8 sources) Penicillins; Translations: [PENICILLINS] Propensity to adverse reactions to drug Anaphylaxis, [facility] (4 sources) prednisoLONE Drug Allergy Rash [facility] (4 sources) Sulfonamides (Antibiotic) Propensity to adverse reactions to drug Anaphylaxis [facility] (8 sources) Amoxicillin; Translations: [AMOXICILLIN] Drug Allergy [facility] Repository (1 source) Clindamycin Drug Allergy unknown [facility] Work Phone: (1 source) House dust mite; Translations: [DUST MITES] allergy to substance [facility] Work Phone: (1 source) Mold Extract Drug Allergy [facility] Work Phone: (1 source) Sulfacetamide Drug Allergy unknown [facility] Work Phone: (1 source) WOOL; Translations: [WOOL] allergy to substance [facility] Work Phone: (1 source) Adhesive agent; Translations: [Adhesive] Propensity to adverse reactions (disorder) [facility] Repository (1 source) Azithromycin Drug Allergy [facility] Repository (1 source) Ciprofloxacin Drug Allergy [facility] Repository (1 source) Film dressing Drug allergy (disorder) [facility] Repository (1 source) Leucine Drug Allergy [facility]ository (1 source) Ondansetron Drug Allergy [facility] Repository (1 source) Shrimp product Drug allergy (disorder) [facility] Repository (1 source) Sulfonamides (Antibiotic) Drug allergy (disorder) [facility] Repository (16 sources) Shellfish; Translations: [SHELLFISH DERIVED] Drug Allergy Swelling [facility] Work Phone: (16 sources) [id number] Antimigraine Agents; Translations: [[id number] ANTIMIGRAINE AGENTS] Propensity to adverse reactions to drug Contraindicat ion-[facility] Work Phone: (4 sources) Codeine; Translations: [codeine] Drug Allergy Amoxicillin (product) [facility] (4 sources) Progesterone; Translations: [progesterone] Drug Allergy [facility] (3 sources) Sulfonamides (Antibiotic); Translations: [sulfa drugs] Drug allergy [facility] (1 source) Azithromycin Drug Allergy [facility] Repository (1 source) Codeine Drug Allergy [facility] Repository (1 source) metroNIDAZOLE Drug Allergy [facility] Repository (1 source) Ondansetron Drug Allergy [facility] Repository (1 source) Penicillin Drug Allergy [facility] Repository (1 source) Progesterone Drug Allergy [facility] Repository (1 source) Shellfish; Translations: [SHELLFISH] Food allergy (disorder) [facility] Repository (1 source) Sulfonamides (Antibiotic) Drug allergy (disorder) [facility] Repository (1 source) chlophedianol Drug Allergy [facility] Repository (1 source) Ciprofloxacin Drug Allergy [facility] Repository (1 source) dexbrompheniramine Drug Allergy [facility] Repository (1 source) Ondansetron Drug Allergy [facility] Repository (1 source) prednisoLONE Drug Allergy [facility] Repository (1 source) Progesterone Drug Allergy [facility] Repository (1 source) Sulfacetamide Drug Allergy [facility] Repository (1 source) Sulfonamide; Translations: [sulfa drugs] Drug allergy [facility] Medications Current Medications Medication Drug Class(es) Dates [...] Date: 05/27/23 Stop Date: 05/30/23 Status: Ordered lamoTRIgine 100 mg oral tablet (13 sources) Mood Stabilizer, Anti-epileptic Agent Start: 06-29-2023 lamoTRIgine 100 mg oral tablet Dose : 100 mg = 1 tab(s), 0 Refill(s) Start Date: 06/29/23 Status: [...] 11-27-2015 Episodic Disorders of teeth and jaw (3 sources) Toothache; Translations: [Other specified disorders of teeth and supporting structures] Onset: 10-06-2015 09-09-2021 Episodic Epilepsy; convulsions (20 sources) Seizure; Translations: [Unspecified convulsions] Onset: 01-25-2017 01-25-2017 Episodic Genitourinary symptoms and ill-defined conditions (3 sources) Proteinuria; Translations: [Proteinuria, unspecified] Onset: 10-19-2015 09-09-2021 Episodic Headache; including migraine (6 sources) Headache disorder; Translations: [Headache disorder] Onset: 11-20-2015 07-26-2021 Episodic Inflammatory diseases of female pelvic organs (2 sources) Bacterial vaginosis; Translations: [Acute vaginitis] Onset: 10-06-2015 09-09-2021 Episodic Malaise and fatigue (13 sources) Asthenia; Translations: [Weakness] Onset: 04-27-2023 04-27-2023 Episodic Menopausal disorders (19 sources) Drug therapy status; Translations: [Hormone replacement therapy] Onset: 06-03-2019 Episodic Other complications of (2 sources) High risk ; Translations: [Supervision of high risk , unspecified, unspecified trimester] Onset: 10-23-2015 11-27-2015 Episodic Other complications of (2 sources) 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; Translations: [ care for patient with recurrent loss, unspecified trimester] Onset: 10-06-2015 09-09-2021 Episodic Other complications of (1 source) 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 ; Translations: [Diseases of the nervous system complicating , unspecified trimester] Onset: 10-19-2015 05-09-2022 Episodic Other connective tissue disease (17 sources) Tear of right rotator cuff; Translations: [...] and parasitic diseases] Onset: 10-06-2015 09-09-2021 Episodic Other nervous system disorders (1 source) H/O: epilepsy; Translations: [Personal history of other diseases of the nervous system and sense organs] Onset: 09-02-2016 05-09-2022 Episodic Poisoning by other medications and drugs (2 sources) Poisoning caused by acetaminophen; Translations: [Poisoning by 4-Aminophenol derivatives, accidental (unintentional), initial encounter] Onset: 11-26-2015 11-26-2015 Episodic Residual codes; unclassified (20 sources) Poor historian; Translations: [Other specified health status] Onset: 10-14-2016 10-14-2016 Episodic Screening and history of mental health and substance abuse codes (20 sources) H/O: depression; Translations: [Personal history of other mental and behavioral disorders] Onset: 09-02-2016 10-13-2016 Episodic Spondylosis; intervertebral disc disorders; other back problems (18 sources) Disorder of vertebral column; Translations: [Sacrococcygeal [...] Time Vital Sign Value Performing Clinician Facility 09-27-2023 10:24-0500 Body weight 73.48 kg Stone Alvarez PAY STATION COLLECTOR Work Phone: [facility] 09-15-2023 10:50-0500 Body height 167.[address] URIEL ROMERO MD [facility] 09-15-2023 10:50-0500 Body temperature 99.5 [degF] DR URIEL ROMERO MD [facility] 09-15-2023 10:50-0500 Body weight [address] URIEL ROMERO MD [facility] 09-15-2023 10:50-0500 Diastolic Blood Pressure Non-Invasive 67 mm[Hg] DR URIEL ROMERO MD [facility] 09-15-2023 10:50-0500 Heart rate 110 /min DR URIEL ROMERO MD [facility] 09-15-2023 10:50-0500 Respiratory rate 20 /min DR URIEL ROMERO MD [facility] 09-15-2023 10:50-0500 Systolic Blood Pressure Non-Invasive 109 mm[Hg] DR URIEL ROMERO MD [facility] 06-28-2023 08:59-0500 Body weight 78.56 kg Gordo Lafleur MD Work Phone: [facility] 06-28-2023 08:59-0500 Diastolic blood pressure 62 mm[Hg] Gordo Lafleur MD Work Phone: [facility] 06-28-2023 08:59-0500 Heart rate 94 /min Gordo Lafleur MD Work Phone: [facility] 06-28-2023 08:59-0500 SaO2% (BldA) [Mass fraction] 99 % Gordo Lafleur MD Work Phone: [facility] 06-28-2023 08:59-0500 Systolic blood pressure 116 mm[Hg] Gordo Lafleur MD Work Phone: [facility] 06-19-2023 15:53-0500 Body height 167.6 cm Eva Teresa CURTAIN STRETCHER.PA[employer]ATION COLLECTOR Work Phone: [facility] 06-19-2023 15:53-0500 Body weight 75.75 kg Eva Teresa CURTAIN STRETCHER.PA[employer] STATION COLLECTOR Work Phone: [facility] 06-19-2023 15:53-0500 Diastolic blood pressure 56 mm[Hg] Eva Teresa CURTAIN STRETCHER[employer]PA[employer]ATION COLLECTOR Work Phone: [facility] 06-19-2023 15:53-0500 Heart rate 81 /min Eva Teresa CURTAIN STRETCHER.PA[employer] STATION COLLECTOR Work Phone: [facility] 06-19-2023 15:53-0500 Respiratory rate 18 /min Eva Teresa CURTAIN STRETCHER.PAY STATION COLLECTOR Work Phone: [facility] 06-19-2023 15:53-0500 Systolic blood pressure 108 mm[Hg] Eva Teresa CURTAIN STRETCHER.PA[employer] STATION COLLECTOR Work Phone: [facility] 11-11-2023 23:53-0500 Diastolic Blood Pressure Non-Invasive [address] SANYA PERRIN MD [facility] 06-03-2023 23:53-0500 Heart rate 79 /min DR SANYA PERRIN MD [facility] 06-03-2023 23:53-0500 Respiratory rate 18 /min DR SANYA PERRIN MD [facility] 06-03-2023 23:53-0500 Systolic Blood Pressure Non-Invasive [address] SANYA PERRIN MD [facility] 06-03-2023 22:24-0500 Diastolic Blood Pressure Non-Invasive [address] SANYA PERRIN MD [facility] 06-03-2023 22:24-0500 Heart rate 91 /min DR SANYA PERRIN MD [facility] 06-03-2023 22:24-0500 Respiratory rate 18 /min DR SANYA PERRIN MD [facility] 06-03-2023 22:24-0500 Systolic Blood Pressure Non-Invasive [address] SANYA PERRIN MD [facility] 06-03-2023 20:48-0500 Body temperature 97.52 [degF] DR SANYA PERRIN MD [facility] 06-03-2023 20:48-0500 Body weight 79.[address] SANYA PERRIN MD [facility] 06-03-2023 20:48-0500 Diastolic Blood Pressure Non-Invasive [address] SANYA PERRIN MD [facility] 06-03-2023 20:48-0500 Heart rate 93 /min DR SANYA PERRIN MD [facility] 06-03-2023 20:48-0500 Respiratory rate 18 /min DR SANYA PERRIN MD [facility] 06-03-2023 20:48-0500 Systolic Blood Pressure Non-Invasive [address] SANYA PERRIN MD [facility] 05-27-2023 15:14-0400 Diastolic Blood Pressure Non-Invasive [address] URIEL ROMERO MD [facility] 05-27-2023 15:14-0400 Heart rate 73 /min DR URIEL ROMERO MD [facility] 05-27-2023 15:14-0400 Respiratory rate 18 /min DR URIEL ROMERO MD [facility] 05-27-2023 15:14-0400 Systolic Blood Pressure Non-Invasive [address] URIEL ROMERO MD [facility] 05-27-2023 12:05-0400 Diastolic Blood Pressure Non-Invasive [address] URIEL ROMERO MD [facility] 05-27-2023 12:05-0400 Reason For Taking VItal Signs DR URIEL ROMERO MD [facility] 05-27-2023 12:05-0400 Systolic Blood Pressure Non-Invasive [address] URIEL ROMERO MD [facility] 05-27-2023 11:55-0400 Diastolic Blood Pressure Non-Invasive [address] URIEL ROMERO MD [facility] 05-27-2023 11:55-0400 Systolic Blood Pressure Non-Invasive [address] URIEL ROMERO MD [facility] 05-27-2023 11:33-0400 Body temperature 98.78 [degF] DR URIEL ROMERO MD [facility] 05-27-2023 11:33-0400 Body weight 73.[address] URIEL ROMERO MD [facility] 05-27-2023 11:33-0400 Heart rate 91 /min DR URIEL ROMERO MD [facility] 05-27-2023 11:33-0400 Respiratory rate 18 /min DR URIEL ROMERO MD [facility] 02-17-2022 09:49-0400 Body height 167.6 cm Eva Teresa CURTAIN STRETCHER[employer]ATION COL[employer]OR Work Phone: [facility] 02-17-2022 09:49-0400 Body weight 67.59 kg Eva Teresa CURTAIN STRETCHER.PA[employer] STATION COLLECTOR Work Phone: [facility] 02-17-2022 09:49-0400 Diastolic blood pressure 71 mm[Hg] Eva Teresa CURTAIN STRETCHER.PA[employer]ATION COLLECTOR Work Phone: [facility] 02-17-2022 09:49-0400 Heart rate 116 /min Eva Teresa CURTAIN STRETCHER.PA[employer] STATION COLLECTOR Work Phone: [facility] 02-17-2022 09:49-0400 Respiratory rate 14 /min Eva Teresa CURTAIN STRETCHER.PA[employer] STATION COLLECTOR Work Phone: [facility] 02-17-2022 09:49-0400 SaO2% (BldA) [Mass fraction] 98 % Eva Teresa CURTAIN STRETCHER.PA[employer] STATION COLLECTOR Work Phone: [facility] 02-17-2022 09:49-0400 Systolic blood pressure 119 mm[Hg] Eva Teresa CURTAIN STRETCHER.PA[employer] STATION COLLECTOR Work Phone: [facility] 11-12-2021 10:33-0400 Body height 167.6 cm Isreal Beckham MD Work Phone: [facility] 11-12-2021 10:33-0400 Body weight 68.04 kg Isreal Beckham MD Work Phone: [facility] 11-12-2021 10:33-0400 Diastolic blood pressure 84 mm[Hg] Isreal Beckham MD Work Phone: [facility] 11-12-2021 10:33-0400 Heart rate 79 /min Isreal Beckham MD Work Phone: [facility] 11-12-2021 10:33-0400 Systolic blood pressure 121 mm[Hg] Isreal Beckham MD Work Phone: [facility] 10-22-2021 10:54-0400 Body height 167.6 cm Eva Teresa CURTAIN STRETCHER.PA[employer]ATION COL[employer]OR Work Phone: [facility] 10-22-2021 10:54-0400 Body weight 70.17 kg Eva Teresa CURTAIN STRETCHER.PA[employer] STATION COLLECTOR Work Phone: [facility] 10-22-2021 10:54-0400 Diastolic blood pressure 74 mm[Hg] Eva Teresa CURTAIN STRETCHER.PA[employer]ATION COL[employer]OR Work Phone: [facility] 10-22-2021 10:54-0400 Heart rate 117 /min Eva Teresa CURTAIN STRETCHER.PA[employer]ATION COLLECTOR Work Phone: [facility] 10-22-2021 10:54-0400 SaO2% (BldA) [Mass fraction] 100 % Eva Teresa CURTAIN STRETCHER.PA[employer] STATION COLLECTOR Work Phone: [facility] 10-22-2021 10:54-0400 Systolic blood pressure 125 mm[Hg] Eva Teresa CURTAIN STRETCHER[employer]PA[employer]ATION COLLECTOR Work Phone: [facility] 07-06-2021 20:46-0500 Diastolic blood pressure 57 mm[Hg] Scott Wilson MD Work Phone: [facility] 07-06-2021 20:46-0500 Heart rate 103 /min Scott Wilson MD Work Phone: [facility] 07-06-2021 20:46-0500 Respiratory rate 22 /min Scott Wilson MD Work Phone: [facility] 07-06-2021 20:46-0500 SaO2% (BldA) [Mass fraction] 99 % Scott Wilson MD Work Phone: [facility] 12-14-2021 20:46-0500 Systolic blood pressure 103 mm[Hg] Scott Wilson MD Work Phone: [facility] 07-06-2021 13:09-0500 Body height 165.1 cm Scott Wilson MD Work Phone: [facility] 07-06-2021 13:09-0500 Body mass index (BMI) [Ratio] 24.96 kg/m2 Scott Wilson MD Work Phone: [facility] 07-06-2021 13:09-0500 Body temperature 98.71 [degF] Scott Wilson MD Work Phone: [facility] 07-06-2021 13:09-0500 Body weight 68.04 kg Scott Wilson MD Work Phone: [facility] NEGATED: Highlighted [id number] 11:05-0500 Body height 167.64 cm Zari Chowdary AT [facility] Work Phone: NEGATED: Highlighted [id number] 11:05-0500 Body height 168 cm Zari Chowdary AT [facility] Work Phone: NEGATED: Highlighted [id number] 11:05-0500 Body mass index (BMI) [Ratio] 24.14 kg/m2 Zari Chowdary AT [facility] Work Phone: NEGATED: Highlighted [id number] 11:05-0500 Body weight 67.59 kg Zari Chowdary AT [facility] Work Phone: NEGATED: Highlighted [id number] 11:05-0500 Body weight 68 kg Zari Chowdary AT [facility] Work Phone: Encounters Encounter Date Encounter Type Care Provider Facility Start: 10-06-2023 ambulatory Emilie Castillo Clinical Communication Start: 10-06-2023 Patient encounter procedure Emilie Castillo Clinical Communication Start: 09-27-2023 End: 09-27-2023 ambulatory STONE ALVAREZ Facility:[facility] Start: 09-27-2023 End: 09-27-2023 Patient encounter procedure Stone Alvarez [employer] Work Phone: [facility] Procedures Date Procedure Procedure Detail Performing Clinician Start: 04-27-2023 Urinalysis [facility] Plan of Treatment Date Care Activity Detail Author Start: 2054 RSV Immunization age d 60 or older (1 - 1-dose 60+ series) RSV Immunization aged 60 or older (1 - 1-dose 60+ series) [facility] Start: 2044 Shingles (RZV) Vacci ne (1 of 2) Shingles (RZV) Vaccine (1 of 2) [facility] Start: 2044 Zoster Vaccines (1 of 2) Zoster Vacc dandre (1 of 2) [facility] Start: 09-04-2030 DTaP/Tdap/Td Vaccine s (12 - Td or Tdap) DTaP/Tdap/Td Vaccines (12 - Td or Tdap) [facility] Start: 09-04-2030 Urine microalbumin profile DTaP,Tdap,Td Vaccine (12 - Td or Tdap) [facility] Start: 05-25-2027 Urine microalbumin profile [facility] Start: 11-10-2025 Tetanus vaccination Tetanus (T d or Tdap) Booster [facility] Start: 06-21-2024 Pneumococcal vaccination [facility] Immunizations Immunization Date Immunization Notes Care Provider Adrian harvey 05-17-2023 influenza virus vaccine, unspecified formulation Tristan Khan MD Work Phone: [facility] Work Phone: 09-04-2020 tetanus toxoid, redu brenda diphtheria toxoid, and acellular pertussis vaccine, adsorbed DR URIEL ROMERO MD [facility] 06-03-2019 influenza, injectabl e, quadrivalent, contains preservative Uzair Parks MD Work Phone: [facility] 06-03-2019 influenza virus vaccine, unspecified formulation Rafita Chavez MD Work Phone: [facility] 03-22-2018 influenza, injectabl e, quadrivalent, contains preservative Uzair Parks MD Work Phone: [facility] 05-25-2017 tetanus toxoid, redu brenda diphtheria toxoid, and acellular pertussis vaccine, adsorbed Uzair Parks MD Work Phone: [facility] 01-02-2017 pneumococcal polysaccharide vaccine, 23 valent Uzair Parks MD Work Phone: [facility] 04-13-2016 influenza virus vaccine, unspecified formulation Scott Wilson MD Work Phone: [facility] 11-28-2015 pneumococcal polysaccharide vaccine, 23 valent Uzair Parks MD Work Phone: [facility] Work Phone: 11-11-2015 tetanus toxoid, redu brenda diphtheria toxoid, and acellular pertussis vaccine, adsorbed Uzair Parks MD Work Phone: [facility] Work Phone: 10-31-2013 pneumococcal polysaccharide vaccine, [address] URIEL ROMERO MD [facility] 10-30-2013 tetanus toxoid, redu brenda diphtheria toxoid, and acellular pertussis vaccine, adsorbed DR URIEL ROMERO MD [facility] 05-22-2012 tetanus toxoid, redu brenda diphtheria toxoid, and acellular pertussis vaccine, adsorbed Uzair Parks MD Work Phone: [facility] Work Phone: 05-22-2012 varicella virus vaccine Claudia Parks MD Work Phone: [facility] Work Phone: 02-16-2012 meningococcal polysaccharide (groups A, C, Y and W-135) diphtheria toxoid conjugate vaccine (MCV4P) Uzair Parks MD Work Phone: [facility] Work Phone: 02-10-2011 tetanus toxoid, redu brenda diphtheria toxoid, and acellular pertussis vaccine, adsorbed Uzair Parks MD Work Phone: [facility] Work Phone: 11-16-2009 human papilloma viru s vaccine, quadrivalent Uzair Parks MD Work Phone: [facility] Work Phone: 08-19-2009 human papilloma viru s vaccine, quadrivalent Uzair Parks MD Work Phone: [facility] Work Phone: 04-29-2009 human papilloma viru s vaccine, quadrivalent Uzair Parks MD Work Phone: [facility] Work Phone: 04-29-2009 meningococcal polysaccharide (groups A, C, Y and W-135) diphtheria toxoid conjugate vaccine (MCV4P) Uzair Parks MD Work Phone: [facility] Work Phone: 05-14-1999 varicella virus vaccine Claudia Parks MD Work Phone: [facility] Work Phone: 04-27-1999 diphtheria, tetanus toxoids and acellular pertussis vaccine, unspecified formulation Uzair Parks MD Work Phone: [facility] Work Phone: 04-27-1999 measles, mumps and rubella virus vaccine Uzair Parks MD Work Phone: [facility] Work Phone: 04-27-1999 poliovirus vaccine, unspecified formulation Uzair Parks MD Work Phone: [facility] Work Phone: 10-03-1995 measles, mumps and rubella virus vaccine Uzair Parks MD Work Phone: [facility] Work Phone: 06-19-1995 diphtheria, tetanus toxoids and acellular pertussis vaccine, unspecified formulation Uzair Parks MD Work Phone: [facility] Work Phone: 1994 diphtheria, tetanus toxoids and acellular pertussis vaccine, unspecified formulation Uzair Parks MD Work Phone: [facility] Work Phone: 1994 poliovirus vaccine, unspecified formulation Uzair Parks MD Work Phone: [facility] Work Phone: 1994 diphtheria, tetanus toxoids and acellular pertussis vaccine, unspecified formulation Uzair Parks MD Work Phone: [facility] Work Phone: 1994 poliovirus vaccine, unspecified formulation Uzair Parks MD Work Phone: [facility] Work Phone: 1994 diphtheria, tetanus toxoids and acellular pertussis vaccine, unspecified formulation Uzair Parks MD Work Phone: [facility] Work Phone: 1994 poliovirus vaccine, unspecified formulation Uzair Parks MD Work Phone: [facility] Work Phone: Payers Date Payer Category Payer Medicaid [id number] 2022 Unknown [id number] 2021 Medicaid UHC MEDICAID UHC COMMUNITY PLAN MEDICAID [id number] 2021-Present [phone] [address] [place] [address] Medicaid [id number] 2021 Private Health Insurance [facility] [id number] 2021-Present [phone] [address] [place] [address] Medicaid [id number] 2021 Unknown [employer] [id number] 2021-Present [phone] [address] [address] [place] [address] [id number]. [id number] 2015 Medicaid [id number] 2011 Unknown [id number] 2011 Unknown [id number] [id number] 1994 Unknown [id number] 2.16.840.1.619576.3.579.2. 278 1994 Unknown [id number] 2.16.840.1.068458.3.579.2. 419 1994 Unknown [id number] 2.16.840.1.192872.3.579.2. 419 1994 Unknown [id number] 2.16.840.1.019208.3.579.2. 419 1994 Unknown [id number] 2.16.840.1.056659.3.579.2. 732 1994 Unknown [id number] 2.16.840.1.633351.3.579.2. 297 1994 Unknown [id number] 2.16.840.1.709959.3.579.2. 297 1994 Unknown [id number] 2.16.840.1.795423.3.579.2. 297 1994 Unknown [id number] 2.16.840.1.180467.3.579.2. 297 1994 Unknown [id number] 2.16.840.1.197153.3.579.2. 297 1994 Unknown [id number] 2.16.840.1.713732.3.579.2. 297 1994 Unknown [id number] 2.16.840.1.686277.3.579.2. 297 1994 Unknown [id number] 2.16.840.1.083957.3.579.2. 297 1994 Unknown [id number] 2.16.840.1.639252.3.579.2. 297 1994 Unknown [id number] 2.16.840.1.304496.3.579.2. 297 1994 Unknown [id number] 2.16.840.1.932631.3.579.2. 297 1994 Unknown [id number] 2.16.840.1.539130.3.579.2. 297 1994 Unknown [id number] 2.16.840.1.723830.3.579.2. 297 1994 Unknown [id number] 2.16.840.1.157576.3.579.2. 297 1994 Unknown [id number] 2.16.840.1.244842.3.579.2. 297 1994 Unknown [id number] 2.16.840.1.282928.3.579.2. 297 1994 Unknown [id number] 2.16.840.1.178338.3.579.2. 297 1994 Unknown [id number] 2.16.840.1.465138.3.579.2. 297 1994 Unknown [id number] 2.16.840.1.347437.3.579.2. 297 1994 Unknown [id number] 2.16.840.1.820409.3.579.2. 598 1994 Unknown [id number] 2.16.840.1.938701.3.579.2. 651 1994 Unknown [id number] 2.16.840.1.191633.3.579.2. 651 1994 Unknown [id number] 2.16.840.1.547629.3.579.2. 651 1994 Unknown [id number] 2.16.840.1.564971.3.579.2. 651 1994 Unknown [id number] 2.16.840.1.236931.3.579.2. 651 1994 Unknown [id number] 2.16.840.1.138459.3.579.2. 651 1994 Unknown [id number] 2.16.840.1.593179.3.579.2. 651 1994 Unknown [id number] 2.16.840.1.093894.3.579.2. 627 1994 Unknown [id number] 2.16840.1.548723.3.579.2. 627 1994 Unknown [id number] 2.16840.1.290263.3.579.2. 627 1994 Unknown [id number] 2.16840.1.121209.3.579.2. 627 1959 Private Health Insurance [id number] 1959 Unknown [id number] Unknown [id number] Unknown [id number] 2.16840.1.994247.3.579.2. 528 Unknown [id number] 2.16840.1.422004.3.579.2. 528 Unknown [id number] 2.16840.1.319301.3.579.2. 528 Unknown [id number] 2.16840.1.456681.3.579.2. 528 Social History Date Type Detail Facility Start: 07-28-2006 End: 07-21-2023 Tobacco smoking status NHIS Current every day smoker [email or web address] Start: 07-24-2005 History of tobacco use Cigarette Smoker [facility] Start: 06-21-2021 End: 07-12-2022 Cigarettes smoked current (pack per day) - Reported [facility] Start: 06-21-2021 End: 06-28-2023 Tobacco use and exposure Current user [facility] Start: 07-06-2021 End: 06-08-2023 Alcohol intake Current drinker of alcohol (finding) [facility] Start: 1995 Sex Assigned At Female [facility] Start: 09-28-2021 End: 09-28-2021 Assertion Unknown if ever smoked [facility] Work Phone: History of tobacco use Chews Tobacco [facility] Work Phone: Start: 10-22-2021 End: 07-12-2022 Alcohol intake Current non-drinker of alcohol (finding) [facility] Start: 09-04-2019 End: 12-20-2019 History SDOH Alcohol Frequency 1 [facility] Start: 09-04-2019 History SDOH Alcohol Std Drinks 98 [facility] Start: 03-09-2018 History SDOH Alcohol Comment 11 months sober [facility] Start: 09-04-2019 History SDOH Social Connections Phone 5 [facility] Start: 09-04-2019 History SDOH Social Connections Membership 2 [facility] Start: 09-04-2019 History SDOH Social Connections Living 3 [facility] Start: 09-04-2019 History SDOH Physical Activity MPS 15 [facility] Start: 12-20-2019 History SDOH Financial 4 [facility] Start: 09-03-2019 Education 21 [facility] Start: 10-12-2021 End: 02-17-2022 Exposure to SARS-CoV-2 (event) Not sure [facility] Start: 10-27-2017 End: 07-21-2023 Tobacco use and exposure Former smokeless tobacco user [facility] Work Phone: Start: 11-12-2021 History SDOH Alcohol Comment occ [facility] Start: 11-12-2021 Tobacco Comment 2 packs weekly [facility] Start: 11-19-2015 Tobacco Comment 1-2 cigs a day [facility] Start: 09-03-2019 End: 07-12-2022 Social connection and isolation panel [facility] Do you belong to any clubs or organizations such as lutheran groups, unions, fraternal or athletic groups, or school groups? No [facility] Are you now , , , , never or living with a partner? [facility] How often to you hav e a drink containing alcohol? Never [facility] How many standard dr inks containing alcohol do you have on a typical day? Patient refused [facility] Do you feel stress - tense, restless, nervous, or anxious, or unable to sleep at night because your mind is troubled all the time - these days [OSQ] Very much [facility] (I/We) worried wheth er (my/our) food would run out before (I/we) got money to buy more. Never true [facility] Work Phone: Start: 09-25-2018 Gender identity Identifies as female gender (finding) [facility] Start: 03-15-2023 Sexual orientation Bisexual (finding) [facility] Start: 12-29-2022 Tobacco smoking status Light tobacco smoker (finding) [facility] [employer] Procedure Code Equipment Code Equipment Origin al Text Equipment Identifier Dates Jif-[employer]j-[employer] Im plant - [id number] Start: 01-27-2017 Screw 9mm Delta Taper Biocomposite 28mm Interference Sterile Knee - [id number] Start: 01-27-2017 Functional Status Date Assessment Result Facility 06-03-2023 Functional Status Assistive Device Sl[place] o[place] [facility] 06-03-2023 Functional Status Standard Safet y ID band on, Call device within reach, Bed in low position, Wheels locked, Upper/Half-Length side-rails up, Phone within reach, personal items within reach, Assistive devices within reach, Bedside Cart Locked, Safety level maintained [facility] 05-27-2023 Functional Status Moderate assistance [facility] 05-27-2023 Functional Status Room check performed [facility] Mental Status Date Assessment Result Facility 06-03-2023 Mental Status Orientation Oriented x 4 [facility] 06-03-2023 Mental Status [facility] 05-27-2023 Mental Status Orientation Oriented x 4 [facility] 05-27-2023 Mental Status [facility] Clinical Notes 10-13-2016 to 10-06-2023 Telephone Encounter - Emilie Domínguez RN - 10/06/2023 12:01 PM EDTTelephone Encounter - Emilie Domínguez RN - 10/06/2023 12:01 PM Stone Hsieh APRN.HARSH - 09/27/2023 11:00 AM EST Note Date & Type Note Facility 10-06-2023 Telephone encounter Note S: Patient spoke with [facility] nurse regarding worsening weakness and shortness of breath B: Onset of symptoms/concern December 2022 A: Right side weakness, drop foot, and face numbness, since last December after a CVA was much worse this morning. Her shortness of breath was worse as well. Patient speaking in full sentences during conversation. Stage 1 emphysema states always short of breath . Admitted to hospital last December diagnosed with CVA of unknown origin, discharged, rehab in April to June. Was supposed to have outpatient physical therapy but has been unable. Since then it has been getting worse. R: Patient advised to go to ER since she has worsening symptoms at this time. Patient states she prefers to go to [facility]. Patient understands care advice. No further needs at this time. Patient instructed to call back with new or worsening symptoms. Reason for Disposition Difficulty breathing Protocols used: Weakness (Generalized) and [id number] [facility] 10-06-2023 Miscellaneous Notes S: Patient spoke with [facility] nurse regarding worsening weakness and shortness of breath B: Onset of symptoms/concern December 2022 A: Right side weakness, drop foot, and face numbness, since last December after a CVA was much worse this morning. Her shortness of breath was worse as well. Patient speaking in full sentences during conversation. Stage 1 emphysema states always short of breath . Admitted to hospital last December diagnosed with CVA of unknown origin, discharged, rehab in April to June. Was supposed to have outpatient physical therapy but has been unable. Since then it has been getting worse. R: Patient advised to go to ER since she has worsening symptoms at this time. Patient states she prefers to go to [facility]. Patient understands care advice. No further needs at this time. Patient instructed to call back with new or worsening symptoms. Reason for Disposition Difficulty breathing Protocols used: Weakness (Generalized) and [id number] documented in this encounter [facility] 09-27-2023 Note HNO ID: [id number] Author: STONE ALVAREZ APRN.[employer] Service: ? Author Type: Nurse Practitioner Type: Progress Notes Filed: 09/27/2023 13:53 Note Text: MEDICAL BREAST PATIENT NAME: Fernando Guido 09/27/2023 HISTORY of PRESENT ILLNESS: Fernando Guido is a 28 year old year old premenopausal woman who presents to the [facility] [place] today for right nipple discharge follow up. The patient denies any breast masses or skin changes. INTERVAL HISTORY: She continues to have right spontaneous bloody nipple discharge (initially bright red then turns burnt orange). She will notice a moderate amount which will decrease over time but lasts for 3-4 days, each occurrence. The last occurrence was a couple weeks ago. She also has nipple pain during this time and the discharge tends to occur every month but she has never really tracked this. She has never tried to express any discharge herself and denies any nipple trauma or injury. She had a negative breast MRI on 08/23/2023. She also admits to having bilateral breast pain which she describes as a constant dull aching and intermittent sharp pain, which started one month ago. The left breast is painful in the UOQ and the right breast is diffusely tender. She drinks 1 - 12 oz can of soda/day, does not wear a bra as this seems to worsen her breast pain and with her hysterectomy hx, she is unsure if she can time her pain cyclically. HISTORY: She reports right spontaneous nipple discharge which [...] bilateral breast US's completed on 06/05/2023 at [facility] (report reviewed) - evaluating the right UIQ and left UOQ for palpable masses which was negative. She does not recall if subareolar imaging was completed on the right for her nipple discharge. A surgical consult was recommended and Radiology had suggested an annual breast MRI and mammogram due to FH. Has Patient had Genetic Testing? YES, 08/31/2023 Your Multi-Cancer panel through [facility] was negative for a pathogenic variant. She has a very compelling family history [...] and plans to have this drawn soon. History pertaining to prior breast biopsies, genetic reports, pathology reports, treatment summaries, personal, social and family history has been extracted from my note dated 07/21/2023. Her vitamin D level was No results [...] cancer: No CANCER SURVEILLANCE: Mammograms: No Breast MRI:Yes, 08/23/2023 negative Colonoscopy: Yes, 06/2023 negative per the patient [...] No Obesity: No, Body mass index is 26.15 kg/m?. 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 [facility] 09-27-2023 History of Present illness Narrative MEDICAL BREAST PATIENT NAME: Fernando Guido 09/27/2023 HISTORY of PRESENT ILLNESS: Fernando Guido is a 28 year old year old premenopausal woman who presents to the [facility] [place] today for right nipple discharge follow up. The patient denies any breast masses or skin changes. INTERVAL HISTORY: She continues to have right spontaneous bloody nipple discharge (initially bright red then turns burnt orange). She will notice a moderate amount which will decrease over time but lasts for 3-4 days, each occurrence. The last occurrence was a couple weeks ago. She also has nipple pain during this time and the discharge tends to occur every month but she has never really tracked this. She has never tried to express any discharge herself and denies any nipple trauma or injury. She had a negative breast MRI on 08/23/2023. She also admits to having bilateral breast pain which she describes as a constant dull aching and intermittent sharp pain, which started one month ago. The left breast is painful in the UOQ and the right breast is diffusely tender. She drinks 1 - 12 oz can of soda/day, does not wear a bra as this seems to worsen her breast pain and with her hysterectomy hx, she is unsure if she can time her pain cyclically. HISTORY: She reports right spontaneous nipple discharge which [...] bilateral breast US's completed on 06/05/2023 at [facility] (report reviewed) - evaluating the right UIQ and left UOQ for palpable masses which was negative. She does not recall if subareolar imaging was completed on the right for her nipple discharge. A surgical consult was recommended and Radiology had suggested an annual breast MRI and mammogram due to FH. Has Patient had Genetic Testing? YES, 08/31/2023 Your Multi-Cancer panel through [facility] was negative for a pathogenic variant. She has a very compelling family history [...] and plans to have this drawn soon. History pertaining to prior breast biopsies, genetic reports, pathology reports, treatment summaries, personal, social and family history has been extracted from my note dated 07/21/2023. Her vitamin D level was No results [...] cancer: No CANCER SURVEILLANCE: Mammograms: No Breast MRI:Yes, 08/23/2023 negative Colonoscopy: Yes, 06/2023 negative per the patient [...] No Obesity: No, Body mass index is 26.15 kg/m . 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 She has a history of stroke (she has limited mobility with right arm, unknown cause), PE, migraines WITH aura. PAST SURGICAL HISTORY: PAST SURGICAL HISTORY Procedure Laterality Date ARTHRS AIDED ANT CRUCIATE LIGM RPR/AGMNTJ/RCNSTJ Right 01/27/2017 Right knee arthroscopic ACL reconstruction with hamstring autograft and medial menisectomy COLONOSCOPY FLX DX W/COLLJ SPEC WHEN PFRMD 06/12/2017 Colonoscopy [facility] - normal - Bx negative ESOPHAGOGASTRODUODENOSCOPY TRANSORAL DIAGNOSTIC 06/12/2017 EGD - duodenitis, gastritis, superfical gastric ulcers, HYSTERECTOMY 11/2018 TH and tubes, benign pathology REMOVAL OF OVARY(S) Left 05/2020 benign path- see 08/13 ms TUBAL LIGATION HX SOCIAL HISTORY: Social History Tobacco Use Smoking status: Every Day Packs/day: 1.5 Types: Cigarettes Start date: 07/28/2006 Smokeless tobacco: Former Types: Chew Tobacco comments: vape Substance Use Topics Alcohol use: Not Currently Comment: occ. glass of wine every few months Drug use: Not Currently Types: Amphetamines, Benzodiazepines, Cocaine, Crack Cocaine, Heroin, Marijuana, Narcotics, Opiates Caffeine intake: 2c / day Exercise: Never FAMILY HISTORY: Family history of breast cancer: Mother at 28 (living, BRCA1+); MGM at 33(living, BRCA1+); Paternal aunt at age unknown (living, BRCA2+); PGM at 34 (living; BRCA2+) Family history of ovarian cancer: MGM at 37; Paternal cousin at age unknown Number of sisters: 5 Number of maternal aunts: 0 Number of paternal aunts: 2 Ashkenazi Ancestry: No Other Cancer: PGM had lung cancer; PGF had pancreatic cancer; Paternal aunt had Leukemia; Paternal uncle had colon cancer; MGF had thyroid cancer There is no family history of prostate, uterine, gastric, brain, renal cell cancer. There is no family history of melanoma or sarcoma. Osteoporosis: MGM, PGM Stroke: PGF Blood Clot: None Heart attack: Father at 38; MGM Thyroid Nodule or Goiter: None Autism: None FAMILY HISTORY Adopted: Yes Problem Relation Age of Onset BRCA Positive Mother BRCA1 Seizures Mother Thyroid Mother Breast Cancer Mother 28 other (Fibromylagia) Mother Seizures Father Heart Father 39 [place] other (autism, fragile x) Sister fathers side [...] Uncle 48 Ovarian cancer Paternal cousin 25 MEDICATIONS: gabapentin (NEURONTIN) 600 mg tablet Take 1 tablet by mouth every 8 hours as needed for up to 90 days. lidocaine (LIDODERM) 5 % Apply 1 Patch as directed once daily. estradiol (DANNIELLE) 0.1 mg/24 hr Apply 1 Patch as directed two times a week. every 84 hrs lurasidone (LATUDA) 80 mg tablet Take 80 mg by mouth once daily. chlorzoxazone (PARAFON FORTE DSC) 500 mg tablet Take 1 tablet by mouth four times a day as needed. prochlorperazine (COMPAZINE) 10 mg tablet Take 1 tablet by mouth every 8 hours as needed. busPIRone (BUSPAR) 15 mg tablet Take 15 [...] 25 mg by mouth daily at bedtime. potassium chloride SR (MICRO-K) 10 mEq CR capsule Take 1 capsule by mouth once daily. Cholecalciferol, Vitamin D3, 125 mcg (5,000 unit) cap Take 1 capsule by mouth once daily. one po daily w K2 azelastine 0.1% nasal spray Use 2 Sprays in each nostril once daily. (Patient not taking: Reported on 09/27/2023) ALLERGIES: ALLERGIES Allergen Reactions Clindamycin Hives, Shortness of [...] has hives and seizures Tessalon [Benzonata* Rash Hwlriplp-7-Xu1 Anti* Contraindication-Medical Surgical Had CVA 12/2022 Zofran [Ondansetron* Swelling REVIEW OF SYSTEMS: She denies chest pain, shortness of breath, persistent cough, severe headaches, unusual bony pains, abdominal pain or unintentional weight loss. PHYSICAL EXAM: Wt 73.5 kg (162 lb) LMP 11/04/2018 BMI 26.15 kg/m ECOG PERFORMANCE STATUS: 3- Capable of only limited selfcare, confined to bed/chair > 50% of waking hrs. General: well-nourished, healthy, female, alert and oriented x 3, calm Skin: warm, dry, skin color, texture, turgor normal Head/Eyes: normocephalic, atraumatic, and anicteric Breasts and Regional Lymph Nodes: The patient was examined in the upright and supine positions. There is no concerning supraclavicular, infraclavicular or axillary lymphadenopathy. The breasts are symmetrical in appearance without visible skin or nipple changes. There are no dominant breast masses or nipple discharge bilaterally. The breasts were tender in the upper outer quadrants. There was mild to moderate fibrocystic change throughout. Specifically, there is no expressible nipple discharge bilaterally. Dr Trinidad repeated breast exam and agrees with above exam documentation. IMAGING: Right diagnostic mammogram along with bilateral focal US. She had a negative Breast MRI on 08/23/2023. Assessment IMPRESSION/PLAN: Fernando Guido is a 28 year old year old female with bilateral fibrocystic change, increased risk for breast cancer due to FH and BRCA+ mutations in family and persistent right spontaneous bloody nipple discharge Although, there was no bloody nipple discharge expressed on today's exam, I recommended updated right diagnostic imaging and bilateral US (right nipple d/c and left breast pain). Having the negative breast MRI is reassuring. She was offered a central duct excision by Dr Trinidad and the pros and cons were reviewed in detail along with her health history. She is scheduled with Cardiology in October for well visit due to Hx of SVT. She will schedule updated diagnostic imaging and we will reconvene to discuss surgery once imaging has been reviewed. Genetics referral made: Yes: Reason: 08/31/2023 Your Multi-Cancer panel through [facility] was negative for a pathogenic variant. If you ever obtain a copy of your relatives' genetic test results, please send those to us so that we can confirm that you did not inherit the BRCA1 and BRCA2 mutations previously identified in your family. A variant of uncertain significance (VUS) was detected: MUTYH c.920G>A (p.[id number]). Chemoprevention discussion: Preventive Tamoxifen has not been studied under the age of 35. However, she is not a candidate for SERM therapy in the future due to a personal history of stroke, PE and migraine with aura. The patient is advised to exercise regularly, achieve/maintain ideal body weight, and to limit alcohol consumption to less than 7 drinks weekly for breast cancer risk reduction and overall health. I recommend Vitamin D3 6411-5285 IU daily for breast and bone health. She will schedule diagnostic imaging and follow up clinical exam after for possible surgical planning. She will call me in the interim should she have any questions or concerns. My final recommendations will be communicated back to the requesting physician by way of shared medical record or letter via US mail. I spent a total of 30 minutes on the date of the service which included preparing to see the patient, xyjj-uk-cekm patient care, completing clinical documentation, obtaining and/or reviewing separately obtained history, performing a medically appropriate examination, counseling and educating the patient/family/caregiver, and ordering medications, tests, or procedures. Stone Alvarez APRN.HARSH Surgical Breast CC: Teodora [address] [place] [address] documented in this encounter [facility] 09-22-2023 Miscellaneous Notes RP 1ST CALL. Patient scheduled for 10/[address] Lozano [facility] Case closed. documented in this encounter [facility] 09-15-2023 Hospital Discharge instructions Patient Education 09/15/2023 [...] the smoke from others. You may use rtyz-bzg-xxqihdd acetaminophen or ibuprofen for fever, muscle aching, [...] body and be dangerous to your health. Ywkm-jmt-ahkylfj remedies won't shorten the length of the [...] or as directed by your healthcare provider [phone] The [employer] Information. [address] [place] [address]. All rights reserved. This information is not intended as a substitute for professional medical care. Always follow your healthcare professional's instructions. Follow Up Care 09/15/2023 10:44:14 With:LEXA RODRIGUEZ MD Address: [address] [place] [address]- When:2-4 days [facility] 09-15-2023 Emergency department Discharge summary Discharge Instructions Thank you for allowing [facility] to assist you with your healthcare needs. [...] RODRIGUEZ MD When Within 2-4 days Where: [place] [address]- Allergies Brethine Keflex Latex Procardia [...] the smoke from others. You may use lndg-vro-juzhjmq acetaminophen or ibuprofen for fever, muscle aching, [...] body and be dangerous to your health. Gkhl-mph-hvkyxsx remedies won't shorten the length of the [...] or as directed by your healthcare provider [phone] The [employer] Information. [address] [place] [address], [place] [address]. All rights reserved. This information is not intended as a substitute for professional medical care. Always follow your healthcare professional's instructions. Additional Information VACCINATE! IT SAVES LIVES! Members of the community who have not yet received the COVID-19 vaccine and would like to receive it can visit one of [facility] vaccine clinics. There are many vaccine clinic locations within the [facility]. For locations and available times, please visit [email or web address] [email or web address] It is important to note that some COVID mobile vaccine clinics are held outdoors and may be canceled in rainy or stormy conditions. To learn more about pediatric vaccinations (ages 5-11), we invite you to visit the [facility] webpage. [email or web address] [email or web address]-Dwrjocqxhie-[email or web address] lihi-Rhmzk-[email or web address].html To learn more about the COVID-19 vaccine, we invite you to visit the CDC website for a list of frequently asked questions. https://www.cdc.gov/coronavirus/2 019-ncov/vaccines/faq.html [employer] Patient Portal Access Instructions: Stay connected with your healthcare team and access your personal medical information anytime with the [employer] Patient Portal. If you would like a full copy of your medical records please contact the [facility] Medical Records Department Monday through Monday between 8a.m. and 4:30p.m. Please follow the directions below to access the portal: 1.Access the email account you provided upon registration to the [facility].2.Look for an invitation email from [facility].3.Open the email and access the invitation link: Accept Invitation to [employer]4.Fill in the required webb to create your account. Sign into [email or web address] with your username and password that you [...] you will allow to register on the [employer] Patient Portal for access to your information. You can also access the [employer] [facility] Patient Portal on the [employer] cruz. Simply click on Health Records under Health Data and then click on the [employer] logo. HOW TO SAFELY DISPOSE OF PRESCRIPTION [...] Call your local pharmacy or go to [email or web address] to find one close to you.3.Make use of household items: Use cat litter or old coffee grounds to dispose medications if other options are not available. Mix your drugs with these household products, seal them in an airtight container and throw it into the garbage. Call [facility]: [phone] to be sure your drugs can be [...] aware that I should contact my doctor. Patient/Seaming Inspector Signature: Date/Time: Relationship to Patient: ____ Witness Name/Signature: Date/Time: [facility] 09-05-2023 Instructions Shashi Rai APRN.[facility] - 09/05/2023 4:54 PM EST OARRS checked. [...] in 1 month. documented in this encounter [facility] 09-05-2023 Miscellaneous Notes I spoke to Eileen and informed her there has been a time change for the September 25 procedure to 11 and not 10. She verbalized understanding. Brandy September 05, 2023 4:04 PM documented in this encounter [facility] 09-05-2023 Note HNO ID: [id number] Author: SHASHI RAI APRN.HARSH Service: ? Author Type: Nurse Practitioner Type: Progress Notes Filed: 09/05/2023 16:54 Note Text: This video visit was performed via [employer] Video Visit. 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 [facility] 09-05-2023 Miscellaneous Notes Items addressed in this encounter: NG[employer] Encounter Scheduled virtual follow up appt with Dante Mckeon to close encounter. Iona Luna MA September 05, 2023 3:27 PM 3:27 PM documented in this encounter [facility] 09-05-2023 History of Present illness Narrative This video visit was performed via [employer] Zoom Video Visit. 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 Chlamydia 2013 Complication of anesthesia migraines after anesthesia Fibromyalgia on gabapentin for this GERD (gastroesophageal reflux disease) Migraines perimenopause s/p TH 11/2018 rt ovary neg genetic testing Polysubstance abuse ([facility]) depression Preeclampsia PTSD (post-traumatic stress disorder) Reactive attachment disorder Seizure (HCC) psychogenic non epileptic seizures Tobacco use PAST SURGICAL HISTORY Procedure Laterality Date ARTHRS AIDED ANT CRUCIATE LIGM RPR/AGMNTJ/RCNSTJ Right 01/27/2017 Right knee arthroscopic ACL reconstruction with hamstring autograft and medial menisectomy COLONOSCOPY FLX DX W/COLLJ SPEC 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 Shashi Rai APRN.PAY STATION COLLECTOR documented in this encounter [facility] 08-31-2023 Miscellaneous Notes Patient name and was confirmed at initiation of discussion. Fernando Guido's Multi-Cancer panel through [employer] was negative for a pathogenic variant. No BRCA1 or BRCA2 mutations were identified, though we did not obtain a copy of her affected relatives' genetic test results. 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 No changes are recommended to her management, based on this result. Please see [employer] message for further discussion. SYL Bustillos Licensed, Certified Genetic Counselor documented in this encounter [facility] 08-29-2023 Miscellaneous Notes She will need another office appointment with Dante or me to discuss other options. At this point in time, I am not certain what the other options would be. Pt does not follow up until 10/25/23. Rhianna Tomlinson RN August 29, 2023 1:24 PM documented in this encounter [facility] 08-23-2023 Note HNO ID: [id number] Author: LEXY BISHOP RT(R) Service: Radiology Author [...] PATIENT PRESENTS WITH AN IMPLANTABLE OR ATTACHED OPERATIONS SUPERINTENDENT: No ALLERGIES: Reviewed and unchanged CONTRAST ALLERGY: NO. EXAM: MRI - CONTRAST TYPE: GROUP II PERIPHERAL IV DATA: Ambulatory: SEE NURSE NOTE RADIOLOGY DEPARTMENT: MR; Exam(s) Completed: Chest: Breast SIGNATURE: RT Haley(R) PATIENT NAME: Fernando Guido DATE: August 23, 2023 TIME: 3:41 PM [facility] 08-22-2023 Note HNO ID: [id number] Author: GORDO LAFLEUR MD Service: ? Author [...] given written instructions to follow up at [facility] Pain [facility] in the next 4 to 6 weeks for further plan of care and overall evaluation. COMMENTS: Repeat in 4 weeks [facility] 08-09-2023 Note HNO ID: [id number] Author: TEODORA MORAN LGC Service: ? Author Type: Genetic Counselor Type: Progress Notes Filed: 09/12/2023 12:09 Note Text: [facility] Consultation Note Genetic Counselor: Teodora Moran MS, [facility] Patient: Fernando Guido Patient Name and confirmed at initiation of visit. This visit was conducted virtually via [employer] Messenger. I have communicated my name and active licensure. The patient's identity and physical location were verified at the time of this visit. Either the patient or their legal marketing development representative has been informed of the risks [...] for genetic counseling and risk assessment for eFrnando Guido, a 28 year old female, for [...] OVARY(S) Left 05/2020 benign path- see 08/13 [facility] TUBAL LIGATION HX CANCER SURVEILLANCE HISTORY: Mammograms: [...] (Fibromylagia) Mother Seizures Father Heart Father 39 [place] other (autism, fragile x) Sister fathers side [...] other (healthy) Daughter (more content not included)... [facility] 07-25-2023 Note HNO ID: [id number] Author: Gordo Lafleur MD Service: ? Author [...] given written instructions to follow up at [facility] Pain [facility] in the next 4 to 6 weeks for further plan of care and overall evaluation. COMMENTS: Repeat in 4 weeks [facility] 07-21-2023 Note HNO ID: [id number] Author: Stone Alvarez APRN.PAY STATION COLLECTOR Service: ? 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 [facility] 06-28-2023 Note HNO ID: [id number] Author: Gordo Lafleur MD Service: ? Author Type: Anesthesiologist Type: Progress Notes Filed: 06/28/2023 9:35 AM Note Text: Dragon was used to dictate this note [...] Virgen. Follow-up office visit in 4 months. [facility] 06-28-2023 History of Present illness Narrative [...] in 4 months. documented in this encounter [facility] 06-21-2023 Note HNO ID: [id number] Author: Tristan Khan MD Service: ? Author Type: Physician Type: Progress Notes Filed: 06/23/2023 11:13 AM Note Text: Virtual visit with me via iZotope FAX to pharm last seen by me 11/2021 distance reviewed interval history I have communicated my name and active licensure. The patient's identity and physical location were verified at the time of this visit. Either the patient or their legal marketing development representative has been informed of the risks [...] female starts school next year lives in [place] due a stroke she had 12/2022 (said [...] past. 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 Patient's last menstrual period was 11/04/2018. Age at menopause onset: 25 Menopausal symptom assessment: Vasomotor symptoms: yes better on ET still has one ovary Urinary incontinence AND symptoms: no incontinence CARDIOVASCULAR Lipid AND CV risk assessment: exsmoker no DVT no HTN no DM no W[place] no stroke BONE STATUS Discussed calcium in [...] (Fibromylagia) Mother Seizures Father Heart Father 39 [place] other (autism, fragile x) Sister fathers side other (SLE) Sister other (Down syndrome) Sister mother's side ADD/ADHD Brother mother's side Bipolar disorder Brother Autism Brother other (Autism/paternal 1/2) Brother father s side Alcohol/Drug Brother mother's side Bipolar disorder Brother Paranoid behavior Brother Bipolar disorder Brother other (suicide) Brother Bipolar disorder Brother Cervical Cancer Maternal Grandmother Thyroid Maternal Grandmother (more content not included)... [facility] 06-21-2023 History of Present illness Narrative Virtual visit with me via iZotope FAX to pharm last seen by me 11/2021 distance reviewed interval history I have communicated my name and active licensure. The patient's identity and physical location were verified at the time of this visit. Either the patient or their legal marketing development representative has been informed of the risks [...] female starts school next year lives in [place] due a stroke she had 12/2022 (said [...] past. 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 Patient's last menstrual period was 11/04/2018. 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 Living Will & Medical Power of Project Hire recommended-she has Mammogram discussed age 44 NEEDS eval Colon cancer screening by age 45 & every 5-10 years. Bone mineral density age 44 IMMUNIZATIONS: per pcp LABS per PCP: Sincerely, Tristan Khan MD (Signed electronically to expedite mailing) c: Fernando Mayo documented in this encounter [facility] 06-19-2023 Note HNO ID: [id number] Author: Eva Shin APRN.PAY STATION COLLECTOR Service: ? Author Type: Nurse Practitioner Type: [...] has hives and seizures Tessalon [Benzonata* Rash Pioqrlba-3-Or1 Anti* Contraindication-Medical Surgical Had CVA 12/2022 Zofran [Ondansetron* Swelling UNIVERSAL PROTOCOL / SAFETY CHECKLIST Procedure: Onabotulinum toxin A for migraine Informed Consent Consent Obtained: Written [place] Protocol A moment to CARE was completed [...] visibility. No medica (more content not included)... [facility] 06-19-2023 Instructions Eva Shin, ROYAL.PAY STATION COLLECTOR - 06/19/2023 4:12 PM EST Instruction after [...] it does not, call our office at [phone] for further instructions. [facility] ATTENTION Clinical Depression What you need to [...] Call the National Suicide Hotline or Call 720 (2) If you are already in treatment, make sure you contact and update your doctor or therapist. (3) Call the [facility] Department of Psychiatry & Psychology at or (ask for Psychiatry & Psychology appointments) (4) Call your primary care doctor to set up an appointment. (5) Call to set-up an appointment at one of the mental healthcare facilities in the [facility] (telephone numbers listed below). Mental Health Resources in the [facility] (in [place] unless otherwise noted): [facility] - [facility] [phone] [facility] - [address] [address] [facility] [phone] Primit[facility] Garcia - [address] [phone] [facility] - [address] [phone] [facility] - [address] [phone] [facility] - [address] [phone] [facility] - [address] [facility] - [phone] [facility] - [phone] [facility] - [address] [place] [phone] [facility] - [address] [place] [phone] [facility] - [address] [facility] [place] [phone] [facility] - [phone] [facility] - [address] [place] [phone] Vin [facility] - [address] [place] [phone] [facility] - [address] [facility] [phone] [facility] [phone] [facility] - [address] [place] [address] [facility] - [address] [phone] [facility] Department of Psychiatry & Psychology. Appointments: or (ask for Psychiatry & Psychology appointments) If you are feeling suicidal, please call the National Suicide Hotline or Call 911 documented in this encounter [facility] 06-19-2023 History of Present illness Narrative Headache [...] has hives and seizures Tessalon [Benzonata* Rash Avpatxje-6-[id number] Anti* Contraindication-Medical Surgical Had CVA 12/2022 Zofran [Ondansetron* Swelling UNIVERSAL PROTOCOL / SAFETY CHECKLIST Procedure: Onabotulinum toxin A for migraine Informed Consent Consent Obtained: Written Aurora Protocol A moment to CARE was completed [...] applicable Written Consent Obtained: Written LOT #: [id number] Expiration Date: Month: 2 Year: 2025 Injection Sites Left (Units) Left (Sites) Right (Units) Right (Sites) TOTAL (Units) Elevator Conductor 5 1 5 1 10 Procerus Units: [...] (Abilify) Bupropion (Wellbutrin) Escitalopram (Lexapro) Fluoxetine (Prozac) [place] (Eskalith, Lithobid) Antiemetics Ondansetron Prochlorperazine Promethazine Reglan (Metoclopramide) Anti-Migraine Rizatriptan (Maxalt) Sumatriptan (Imitrex, Sumavel) Blood Pressure Metoprolol (Lopressor,Toprol XL) Botulinum Toxin Onabotulinum Toxin A (Botox) Muscle Relaxer Baclofen (Lioresal) Cyclobenzaprine (Flexeril) Methocarbamol (Robaxin) Sleep Aids Melatonin Trazodone (Desyrel) Other Medications Diphenhydramine (Benadryl) Prednisone Over the Counter Medications Acetaminophen (Tylenol) Ibuprofen (Advil, Motrin) Naproxen sodium (Aleve) Eva Shin APRN.HARSH Answers submitted by the patient for this [...] month? : 5 documented in this encounter [facility] 06-09-2023 Note HNO ID: [id number] Author: Srniivas Francisco RN Service: Care Management Author Type: Registered Nurse Type: Care Mgt Progress Note Filed: 06/09/2023 11:48 AM Note Text: CARE MANAGEMENT PROGRESS NOTE SERVICE DATE: 06/09/2023 SERVICE TIME: 11:45 AM LOS: [address] Waters, pt is cleared psychologically and can be d/c back to [facility] from ED. Per nursing staff, attempted to call report, was advised by [facility] that pt will need a new precert. Called [facility] admissions, and advised that pt has not been admitted to the hospital, was evaluated in the ED and will be discharged from the ED, they confirm that pt will not need a new precert. ED staff notified they can call report and d/c pt back to [facility]. SIGNATURE: Srinivas Francisco RN PATIENT NAME: Fernando Guido DATE: June 09, 2023 TIME: 11:45 AM PAGER/CONTACT #: [phone] [facility] 06-09-2023 Note HNO ID: [id number] Author: Matthew Monahan, PhD Service: Psychology Author Type: Psychologist Type: Progress Notes Filed: 06/09/2023 11:35 AM Note Text: Reason for referral: Depression. The patient is currently in the emergency department at [facility]. I had seen the patient on [...] circumstances that led to her transfer to [facility] from [facility]. She had been at the [facility], since her discharge from this facility May 02, 2023. She informed me that there were some concerns regarding her insurance company approving continue to stay at the fpc. Apparently the issues were not resolved during a conversation she had with the hospice social worker at the fpc. Patient who has been receiving mental health treatment at the counseling center in [place], [place] was seen for intake at the fpc by a worker from [facility] , a mental health provider group. She was pink slipped for suicidal ideation. The patient's psychiatric provider at the counseling center in [place] has her on buspirone 15 mg 3 [...] suicidal ideation to the staff member from [facility]. She told me what she told the mental health provider literally was that if she was discharged from the fpc to the street she knows she would use the drugs and because she had not used drugs in a long time those drugs might be fatal. She told me she was afraid if her insurance did not cover her stay at the [facility] that homeless shelters might not accept her [...] coordinator and I also spoke to the hospice social worker in the emergency department. My conclusion was that the patient was not in need of inpatient psychiatric treatment and can be released back to the fpc. She said she would cooperate and return to the fpc if they accepted her. Patient asked me if she could use her phone and I approved that. [facility] 06-08-2023 Miscellaneous Notes BEHAVIORAL HEALTH INTAKE NOTE SERVICE DATE: 06/08/23 SERVICE TIME: 18:42 Nature of the crisis: SI Presenting Problem: Fernando Guido is a 28 year old female brought in to [facility] ED from Jail by ambulance for SI. Per ED: Patient presents with: Suicidal Ideation. Pt pink slipped here from Psych [facility] for suicidal thoughts. Pt does not have a specific plan but does report she feels if she were to be discharged from [facility] that she would find heroin and OD. Pt has bed ready at [facility], just needs med clearance Patient [...] her cultural beliefs and stated she was Hindu and would not change. Staff removed her phone from her possession, and she escalated to spitting, threatening and struggling with staff. Pt was medicated at that time (Droperidol injection 5 mg 16:30pm) and was placed in 4 pt restraints. RN was planning to release PT from one restraint to allow Pt to eat a meal. RN asked beam builder helper to call back in one hour to give Pt time to calm down and eat . After one hour Pt initially declined beam builder helper interview and then changed her mind and engaged in the assessment. Per : Pt current staying and receiving care at [facility] following a stroke. Decline in MH [...] Pt at first refused to speak to beam builder helper and then changed mind. She presented with flat affect, poverty of speech and was withdrawn. Many questions were replied to with the statement, I don t want to think about that or It s too much to go into . She does report being depressed currently but denied SI and HI. I know [id number] said I was suicidal, but I m [...] reports a desire to return to the fpc and continue to get care for her medical and physical ailments. I have a bunch of health stuff . 06/09/2023: Pt was here at [facility] as in patient from 04/27/2023 to 05/02 [...] mother abused drugs. Her father was a electric lift truck driver and did not lead a stable life. [...] is currently receiving psychiatric treatment at the [facility] in [facility]. She had been in counseling often throughout her life. She is planning on returning to counseling 05/02/2023 pt was admitted to the [facility]. 06/09/2023 09:55 Call to [facility] spoke to Colleen who stated pt does her own care and ADL'S she does not use a perry lift she is able to transfer on her own. Uses a wheel chair. 06/09/2023 11:[address] Kathleen note: Reason for referral: Depression. The patient is currently in the emergency department at [facility]. I had seen the patient on [...] circumstances that led to her transfer to [facility] from the [facility] where she was receiving rehabilitation. She had been at the fpc, [facility], since her discharge from this facility May 02, 2023. She informed me that there were some concerns regarding her insurance company approving continue to stay at the fpc. Apparently the issues were not resolved during a conversation she had with the hospice social worker at the fpc. Patient who has been receiving mental health treatment at the [facility] in [place], [place] was seen for intake at the fpc by a worker from [facility] , a mental health provider group. She was pink slipped for suicidal ideation. The patient's psychiatric provider at the counseling center in [place] has her on buspirone 15 mg 3 [...] suicidal ideation to the staff member from [facility]. She told me what she told the mental health provider literally was that if she was discharged from the fpc to the street she knows she would use the drugs and because she had not used drugs in a long time those drugs might be fatal. She told me she was afraid if her insurance did not cover her stay at the [facility] that homeless shelters might not accept her [...] coordinator and I also spoke to the hospice social worker in the emergency department. My conclusion was that the patient was not in need of inpatient psychiatric treatment and can be released back to the fpc. She said she would cooperate and return to the fpc if they accepted her. SOCIAL HISTORY: Social [...] MEDICATION COMPLIANCE: Yes SOCIAL INFORMATION: Living Arrangements: Jail Facility Name/ Phone #: [facility] Satisfaction with Living Arrangements: Pt says it is helping her medical issues and she would like to return Does Patient Have Minor Children for Whom He/She is Responsible?: No (Children were removed from her care years ago per ) Education Level: High School Diploma/GED Employment Status: Unemployed Is the Patient a [place]: Yes Details: [employer] per Stressors: Abuse/Neglect, Family, [...] Legal History How Legal Issues Were Verified: [facility] Immigration Investigator of Courts Website, U.[place] Department of Justice Sex Offender Website, [facility] Immigration Investigator of Courts Website Gender Specific Test: Negative Sex at Time of : Female Patient Identified Gender: Female Preferred Pronoun: She/Her/Hers Sexual Orientation: Heterosexual Cultural/Yazidi Concerns Cultural Issues or Concerns That Might Affect Treatment: Hindu OBSERVATIONS Level of Consciousness Alert: Yes Orientation: Person, Place, Time, Situation Physical Appearance Appears: Average Build, Appears Stated Age, Casual, Appropriate Speech Rate: Slowed Volume: Appropriate Quality: Appropriate to Topic Quantity: Poverty of Speech Thought Processes Thought: Guarded, Reliable Historian/Direct Support Professional Caregiver Thought Content/Perceptions Delusions: None Observed Hallucinations: Patient Denies Illusions: Patient Denies Derealization: No Depersonalization: No Memory: Intact Recent Cognition Impairment: None Intelligence Evaluation: Average Mood & Affect Patient Described Mood: Very depressed Other Direct Support Professional Caregiver Described Mood: RN and Spouse report flat affect,, depression and agitation Direct Support Professional Caregiver: INGA Siddiqi and Spouse Marcos Observed/Reported: Depressed, Apathetic, Hopelessness, [...] No Assistance Person Providing Information: PT and INGA Siddiqi Continence: Incontinent of Bowels and Bladder MENTAL HEALTH SERVICES: Agency/Organization: [place] [address] Inpatient Mental Health Treatment History: Over 90 [...] Anxiety and/or Panic Family History: Suicidal Behavior, [place] Psychiatric Diagnoses Requiring Hospitalization (Pt would [...] health and mood Risk Indicators: stay in fpc, health concerns, trauma hx, MH hx Protective Factors: Souse and is receiving care in fpc Access to Lethal Means: No Collateral Sources Used and Relevant Information Obtained: Marcos Specific Assessment Data to Support Risk Determination Rationale for Actions Taken and Not Taken: Pt lacks insight and judgment and was combative and aggressive in ED, charges pending, Pt reports severe depression at this time and was given pink slip by [id number] Communication of Current Risk Stratification to: Current Medical Providers: Dr Richter Date 06/09/2021 Time 07:42 AM Psychiatrist administrative receptionist: Name: DR Kathleen Date: 06/09/2023 Time: 11:21am INTERVENTIONS Psychiatry Consult Completed in This Episode of Care: Yes Psych Consult Date: 06/09/23 Psych Consult Time: 112 Location: ED Provider Name: Dr Kathleen Sources of Information: Patient, Current Provider ([facility]) Patient Assessed by Intake via: Face to Face Coordination of care with: ED RN, BRENDON CHOWDARY, Current Providers ([facility]) Interventions: Therapeutic Interventions Therapeutic Interventions: Crisis Intervention, Crisis Assessment Goals/Objectives: Discharge from hospital with referrals/linkage to supportive services/current providers DISPOSITION & PLAN: Patient Assessed by Intake via: Face to Face Patient stated goals: Goals: To not be hospitalized/be discharged from ED Coordination of Care with: ED RN, BRENDON CHOWDARY, Current Providers ([facility]) Assessment/Impressions: Discharge Plan: Secure an inpatient bed Goals/Objectives: Discharge from hospital with referrals/linkage to supportive services/current providers Total time spent (minutes) in Supportive Care for this patient: MEDICAL CLEARANCE Initial Date: 06/08/23 Initial Time: 175 Final/Accepted Date: 06/08/23 Final/Accepted Time: 1749 Reviewed medical history with physician: Yes Reviewed abnormal labs with physician: Yes Discussed case with Dr. Kathleen who states that Fernando Guido is not a candidate for admission. Is Patient Less Than 18 Years of Age or have a Guardian/Healthcare Power of Project Hire?: No Disposition Date: 06/09/23 Disposition Time: 1153 SIGNATURE: SANJANA Bauer PATIENT NAME: Fernando Guido DATE: June 08, 2023 TIME: 7:28 PM documented in this encounter [facility] 06-04-2023 Hospital Discharge instructions Patient Education 06/03/2023 [...] insufficiency or varicose veins, don't sit or sonar watchstander one place for long periods of time. [...] or use an increased number of pillows [id number] The Instant Information. [address] [place] [address] 12264. All rights reserved. This information is not intended as a substitute for professional medical care. Always follow your healthcare professional's instructions. Follow Up Care 06/03/2023 20:49:33 With:LEXA RODRIGUEZ MD Address: [facility] [place] [address]- When:2-4 days Comments:Return to ED if symptoms worsen [facility] 06-03-2023 Emergency department Discharge summary Discharge Instructions Thank you for allowing [facility] to assist you with your healthcare needs. The following is important discharge information regarding your hospital visit. Diagnosis from Today's Visit Edema of lower leg Lower leg pain-swelling What to Do Next Instructions from Your Care Team Discharge ED Outpatient Vascular Lab - Ordered -- Test Requested: Bilateral LE Doppler US for DVT, Lower extremity, Bilateral, Test Reason: Swelling, Mon-Fri 6am-6:30pm: Call [phone] to schedule a same day appointment for testing or report to the Vascular Lab at 6:00 AM. Please be aware that the... Post Acute Orders No qualifying data available. You Need to Schedule the Following Appointments Follow Up with LEXA RODRIGUEZ MD When Within 2-4 days Why: Return to ED if symptoms worsen Where: [address] [place], [place] [id number]- Allergies Brethine Keflex Latex Procardia (hypotension) amoxicillin [...] insufficiency or varicose veins, don't sit or sonar watchstander one place for long periods of time. [...] or use an increased number of pillows [phone] The Instant Information. [address] [place] [address]653. All rights reserved. This information is not intended as a substitute for professional medical care. Always follow your healthcare professional's instructions. Additional Information VACCINATE! IT SAVES LIVES! Members of the community who have not yet received the COVID-19 vaccine and would like to receive it can visit one of [facility] vaccine clinics. There are many vaccine clinic locations within the [facility]. For locations and available times, please visit [email or web address].[place].g ov/. It is important to note that some COVID mobile vaccine clinics are held outdoors and may be canceled in rainy or stormy conditions. To learn more about pediatric vaccinations (ages 5-11), we invite you to visit the [facility] webpage. https://www.[facility].org/pa ges/2117-Jmigs-Nxsaryfsafy-Freque qqln-Ueils-Kpinmktoa.html To learn more about the COVID-19 vaccine, we invite you to visit the CDC website for a list of frequently asked questions. https://www.cdc.gov/coronavirus/2 019-ncov/vaccines/faq.html [facility] Patient Portal Access Instructions: Stay connected with your healthcare team and access your personal medical information anytime with the [facility] Patient Portal. If you would like a full copy of your medical records please contact the [facility] Medical Records Department Monday through Monday between 8a.m. and 4:30p.m. Please follow the directions below to access the portal: 1.Access the email account you provided upon registration to the [facility].2.Look for an invitation email from [facility].3.Open the email and access the invitation link: Accept Invitation to [employer]4.Fill in the required webb to create your account. Sign into [email or web address] with your username and password that you [...] you will allow to register on the [facility] Patient Portal for access to your information. You can also access the [facility] Patient Portal on the PagerDuty. Simply click on Health Records under [employer] Data and then click on the [employer] logo. HOW TO SAFELY DISPOSE OF PRESCRIPTION [...] Call your local pharmacy or go to [email or web address] to find one close to you.3.Make use of household items: Use cat litter or old coffee grounds to dispose medications if other options are not available. Mix your drugs with these household products, seal them in an airtight container and throw it into the garbage. Call [facility]: [phone] to be sure your drugs can be [...] aware that I should contact my doctor. Patient/Seaming Inspector Signature: Date/Time: Relationship to Patient: ____ Witness Name/Signature: Date/Time: [facility] 06-03-2023 Note SINUS TACHYCARDIA Electronic Signature: MD SANYA PERRIN MD 06/03/2023 21:41:26 [facility] 06-03-2023 Note ORIGINAL EXAMINATION: ONE XRAY VIEW [...] Date: 06/03/2023 9:29:58 PM [facility] Discharge instructions Patient Education [...] delay the healing process. You may use iuwb-vdz-oylilcb pain medicine to control pain, unless another [...] or as directed by your healthcare provider [phone] The Instant Information. [address] [place] [address]. All rights reserved. This information is not intended as a substitute for professional medical care. Always follow your healthcare professional's instructions. Follow Up Care 05/27/2023 11:18:50 With:LEXA RODRIGUEZ MD Address: [address] [place] [address] [place] [address]- When:2-4 days [facility] 05-27-2023 Emergency department Discharge summary Discharge Instructions Thank you for allowing [facility] to assist you with your healthcare needs. [...] Within 2-4 days Where: [address] [facility], [place] [address]- Allergies Brethine Keflex Latex Procardia (hypotension) amoxicillin [...] delay the healing process. You may use njkc-bkp-xubefsr pain medicine to control pain, unless another [...] or as directed by your healthcare provider [phone] The Instant Information. [address] [place] [address]339. All rights reserved. This information is not intended as a substitute for professional medical care. Always follow your healthcare professional's instructions. Additional Information VACCINATE! IT SAVES LIVES! Members of the community who have not yet received the COVID-19 vaccine and would like to receive it can visit one of [facility] vaccine clinics. There are many vaccine clinic locations within the [facility]. For locations and available times, please visit [email or web address].[place].g ov/. It is important to note that some COVID mobile vaccine clinics are held outdoors and may be canceled in rainy or stormy conditions. To learn more about pediatric vaccinations (ages 5-11), we invite you to visit the [facility] webpage. https://www.[employer].org/pa ges/6110-Uzxlx-Mfjuiemgwpw-Freque ydpf-Ucgjt-Qnogxaogq.html To learn more about the COVID-19 vaccine, we invite you to visit the CDC website for a list of frequently asked questions. https://www.cdc.gov/coronavirus/2 019-ncov/vaccines/faq.html [facility] Patient Portal Access Instructions: Stay connected with your healthcare team and access your personal medical information anytime with the [employer] Patient Portal. If you would like a full copy of your medical records please contact the [facility] Medical Records Department Monday through Monday between 8a.m. and 4:30p.m. Please follow the directions below to access the portal: 1.Access the email account you provided upon registration to the [facility].2.Look for an invitation email from [facility].3.Open the email and access the invitation link: Accept Invitation to [employer] [facility] [employer]4.Fill in the required webb to create your account. Sign into [email or web address] with your username and password that you [...] you will allow to register on the [facility] Patient Portal for access to your information. You can also access the [facility] Patient Portal on the PagerDuty. Simply click on Health Records under Health Data and then click on the [employer] logo. HOW TO SAFELY DISPOSE OF PRESCRIPTION [...] Call your local pharmacy or go to [email or web address] to find one close to you.3.Make use of household items: Use cat litter or old coffee grounds to dispose medications if other options are not available. Mix your drugs with these household products, seal them in an airtight container and throw it into the garbage. Call [facility]: [phone] to be sure your drugs can be [...] aware that I should contact my doctor. Patient/Seaming Inspector Signature: Date/Time: Relationship to Patient: ____ Witness Name/Signature: Date/Time: [facility] 05-06-2023 Note HNO ID: [id number] Author: Note, Interface Service: ? Author Type: ? Type: Progress Notes Filed: 05/06/2023 5:59 AM Note Text: Epic Scheduled Downtime: 05/06/2023 1:00:00 AM to 05/06/2023 1:28:00 AM [facility] 05-02-2023 Note HNO ID: [id number] Author: Jacinto Herron LISW Service: Care Management Author Type: Foil Wrapper Type: Care Mgt Progress Note Filed: 05/02/2023 3:58 PM Note Text: Summary: Discharge Note CARE MANAGEMENT DISCHARGE NOTE SERVICE DATE: May 02, 2023 SERVICE TIME: 3:18 PM Admission Date: 04/27/2023 LOS: 0 days Discharge Arrangement Services Arranged Provider Name: [facility] Caregiver Assessment Transportation Arrangements Transportation Arrangements: [employer] Agency and Phone #:: Cristin Ro [phone] Date of Trip: 05/02/23 Time of Trip: 7773 Type of Service: Wheelchair Is Patient Medicaid Pending?: No Was transportation financial coverage discussed with family?: Patient;Spouse Wafer Substrate Tester Location: [facility] Destination: [facility] Financial Care Management Responsibility: None Handoff Communication: Additional Information: Patient to discharge this date at skilled level of care to [facility]. Pt notified of d/c plan, still in agreement with d/c plan. Nurse report number given, d/c packet on chart, PASRR completed and facility notified. Pt notified of potential OOP cost for transportation, stated understanding. Case closed SIGNATURE: PAULA [place] PATIENT NAME: Fernando Guido DATE: May 02, 2023 TIME: 3:18 PM CONTACT #: [phone] -- [facility] 05-02-2023 Note HNO ID: [id number] Author: Jesusita Gregory Service: Care Management Author Type: ? Type: Care Mgt Progress Note Filed: 05/02/2023 2:15 PM Note Text: [facility] ([facility] PRECERT NOTE NIDIA PATHWAY O [place] approved Intermediate Facility for [facility]. Precert approved through 05/04. MARCI Roth precert for [facility] is APPROVED for 5 days 05/02 to 05/06 must admit by 05/04 REF# [id number] SIGNATURE: Jesusita Gregory DATE: May 02, 2023 TIME: 2:14 PM [facility] 05-02-2023 Note HNO ID: [id number] Author: Jacinto Herron LISW Service: Care Management Author Type: Foil Wrapper Type: Care Mgt Progress Note Filed: 05/02/2023 11:33 AM Note Text: Summary: Discharge Planning CAD DESIGNER DRAFTER notified pt of accepting facilities and to verify FOC. Pt chose [facility]. Pre-cert started, to be pending. Pt will need Auth, PASRR completed, and transport arranged prior to discharge. Will follow as needed. [facility] 05-01-2023 Note HNO ID: [id number] Author: Dat Vallejo MD Service: Hospital Medicine [...] -- 04/27/23 2245 activity - mobilize patient (mo,oh) VTE Prophylaxis: VTE prophylaxis appropriate SIGNATURE: Dat Vallejo MD PATIENT NAME: Fernando Guido DATE: May 01, 2023 TIME: 04:31 PM [facility] 05-01-2023 Note HNO ID: [id number] Author: Jacinto Herron LISW Service: Care Management Author Type: Foil Wrapper Type: Care Mgt Progress Note Filed: 05/01/2023 2:19 PM Note Text: Summary: Discharge Planning CAD DESIGNER DRAFTER continuing to follow for d/c planning needs. Patient is from home with spouse, requires much assistance with ADLs at home with spouse assistance, pt and spouse are able to arrange transportation as needed. Pt came in for right sided weakness, she does have hx of many psych dx. PT/OT evaled pt and recommended SNF. Pt gave original SNF choices for [facility] area, then [place] and [facility] area. Pt is still awaiting acceptance of SNF. Many SNFs have denied, awaiting further responses as able. Pt stated that if there are no accepting SNFs in original area of preference, to send a blanket referral to [facility]. The pt will need updated pt/ot notes and pre-cert started pending accepting facility. Requested therapy priority this date. Will continue to follow for d/c needs. Update: placement arrangement continues to remains difficult for this patient, combined with this Monday being a holiday for some SNF admissions. [facility] and [facility] are to be reviewing referrals at this time. Pt would now like to include [facility] blanket referrals, tasked in [facility]. [facility] and [facility] in [facility] are reviewing. [facility] to complete an on-site. The pt was made aware of updates and stated understanding. CAD DESIGNER DRAFTER encouraged pt to start considering possibility of home d/c with [facility], but she does not want to do that if at all possible due to lack of assistance with ADLs at home. Will continue to follow for difficult d/c planning needs. [facility] 04-30-2023 Note HNO ID: [id number] Author: Dat Vallejo MD Service: Hospital Medicine [...] home metoprolol Medication and Non-Pharmacologic VTE Prophylaxis/Anticoagulants 04/27/233 activity - mobilize patient (mo,ks) VTE Prophylaxis: VTE prophylaxis appropriate SIGNATURE: Dat Vallejo MD PATIENT NAME: Fernando Guido DATE: April 30, 2023 TIME: 03:43 PM [facility] 04-30-2023 Note HNO ID: [id number] Author: Matthew Monahan, PhD Service: Psychology Author [...] mother abused drugs. Her father was a electric lift truck driver and did not lead a stable life. [...] psychiatric treatment at the counseling center in [facility]. She had been in counseling often throughout her life. She is planning on returning to counseling. [facility] 04-29-2023 Note HNO ID: [id number] Author: Dat Vallejo MD Service: Hospital Medicine [...] Prophylaxis/Anticoagulants 04/27/23 2245 activity - mobilize patient (mo,ks) VTE Prophylaxis: VTE prophylaxis appropriate SIGNATURE: Dat Vallejo MD PATIENT NAME: Fernando Guido DATE: April 29, 2023 TIME: 04/29/23 PM [facility] 04-29-2023 Note HNO ID: [id number] Author: Matthew Monahan, PhD Service: Psychology Author [...] a psychiatrist at the counseling center in [place]. She does not see a counselor. She [...] here tomorrow I will continue to assess. [facility] 04-28-2023 Note HNO ID: [id number] Author: Dat Vallejo MD Service: Hospital Medicine [...] metoprolol Medication and Non-Pharmacologic VTE Prophylaxis/Anticoagulants 04/27/23 activity - mobilize patient (mo,ks) VTE Prophylaxis: VTE prophylaxis appropriate SIGNATURE: Dat Vallejo MD PATIENT NAME: Fernando Guido DATE: April 28, 2023 TIME: 6:43 PM [facility] 04-28-2023 Note HNO ID: [id number] Author: Jacinto Herron LISW Service: Care Management Author Type: Foil Wrapper Type: Care Mgt Progress Note Filed: 04/28/2023 3:19 PM Note Text: Summary: Discharge Planning CARE MANAGEMENT PROGRESS NOTE SERVICE DATE: 04/28/2023 SERVICE TIME: 3:17 PM LOS: 0 days Wray of Choice Given: Yes Level of Care Discussed: Intermediate Facility;Inpatient Rehab Facility;Home Care Financial Disclosure Provided: Yes Provider List: Rehab Facility;Intermediate Facility;Home Care Provider list within the patient's requested geographic area shared with the patient/family: Yes within: 20 miles of zip code: [address] Quality and resource use metrics shared with the patient that are relevant to the patient's goals of care and treatment preferences:: Yes [facility]. Pt gave more choices for [facility], [facility],[place]. New referrals placed. Will need accpetanc, auth and pasrr completed. Will need urgent weekend f/u as able. SIGNATURE: PAULA [facility] PATIENT NAME: Fernando Guido DATE: April 28, 2023 TIME: 3:16 PM PAGER/CONTACT #: [phone] [facility] 04-28-2023 Note HNO ID: [id number] Author: Jacinto Herron LISW Service: Care Management Author Type: Foil Wrapper Type: Care Mgt Progress Note Filed: 04/28/2023 11:59 AM Note Text: Summary: Discharge Planning CARE MANAGEMENT PROGRESS NOTE SERVICE DATE: 04/28/2023 SERVICE TIME: 11:59 AM LOS: 0 days Wray of Choice Given: Yes Level of Care Discussed: Intermediate Facility;Inpatient Rehab Facility;Home Care Financial Disclosure Provided: Yes Provider List: Rehab Facility;Intermediate Facility;Home Care Provider list within the patient's requested geographic area shared with the patient/family: Yes within: 20 miles of zip code: [address] Quality and resource use metrics shared with the patient that are relevant to the patient's goals of care and treatment preferences:: Yes Patient gave FOC for [facility]. Referrals placed. Will follow for acceptance and to start pre-cert as needed. SIGNATURE: PAULA [facility] PATIENT NAME: Fernando Guido DATE: April 28, 2023 TIME: 11:58 AM PAGER/CONTACT #: [phone] [facility] 04-28-2023 Note HNO ID: [id number] Author: Jacinto Herron LISW Service: Care Management Author Type: Foil Wrapper Type: Care Mgt Initial Assessment Filed: 04/28/2023 11:58 AM Note Text: Summary: Discharge Planning CARE MANAGEMENT: ASSESSMENT AND DISCHARGE PLAN SERVICE DATE: April 28, 2023 SERVICE TIME: 11:48 AM PCP: Gaby Lerner MD Primary Contact: Extended Emergency Contact Information Primary Emergency Contact: Marcos Guido Jr. [address]: [address] [place] [id number] [place] [address] Mobile Relation: Spouse Admission Status: Observation Insurance Provider: NIDIA MENDOZA [place] Discharge Planning requested by: Per Department Practice Potential Transition Plans Intermediate Facility/Intermediate Care Facility Advance Directives Current Advance Directive: Health Care Power of Project Hire In Chart: Yes Up To Date and Valid: No Dry Yard Worker Attempted to Assist with AD Completion: Yes [...] Other Post-Acute Care Goal(s): placement as needed Wray of Choice Explained: Wray of Choice Given: Yes Level of Care Discussed: Intermediate Facility;Inpatient Rehab Facility;Home Care Are you interested [...] able. Pt was questioning OBS status, messaged dr about if she will be able to be changed to inpatient and asked [facility] nurse to reach out to pt to explain OBS status in depth. Pt appreciated assistance. CAD DESIGNER DRAFTER also provided pt with a community resource list due to other community needs post d/c from hospital/SNF. Will continue to follow for d/c planning needs. SIGNATURE: PAULA [facility] PATIENT NAME: Fernando Guido DATE: April 28, 2023 TIME: 11:48 AM CONTACT #: [phone] [facility] 04-27-2023 Instructions Rafita Chavez MD - [...] hospital visit ) Declined [facility] consult / [place] location / [place] location ( was further , and cited transport difficulty) Rafita Chavez MD Staff, [facility] [address] [facility] [id number] 04/27/2023 7:31 PM Stroke Signs and Symptoms: [...] diet rich in fruits and vegetables (https://www.nhlbi.nih.gov/educat ion/pzoh-ruuepe-lozz) - Consider Mediterranean diet supplemented with nuts [...] of an exercise program by a health career placement specialist such as a physical therapist or cardiac [...] for their cardiovascular health Adapted from the [place] Heart Association/[place] Stroke Association: 2021 Guideline for the Prevention of Stroke in Patients With Stroke and Transient Ischemic Attack documented in this encounter [facility] 04-27-2023 Note HNO ID: [id number] Author: Rafita Chavez MD Service: ? Author Type: Physician Type: Progress Notes Filed: 04/27/2023 7:43 PM Note Text: Neurology Outpatient Clinic Note VIRTUAL VISIT Date: April 27, 2023 Patient Name: Fernando Guido Clinic Preceptor: Dr. Beltran HPI: This is Ms. Fernando Guido a 27 year old female who presents to the [facility] outpatient neurology department with a chief complaint [...] Within 30 min her took her to [facility]. CT brain, CTA HANDN, and MRI [...] treatments. However, s (more content not included)... [facility] 04-27-2023 History of Present illness Narrative Neurology Outpatient Clinic Note VIRTUAL VISIT Date: April 27, 2023 Patient Name: Fernando Guido Clinic Preceptor: Dr. Beltran HPI: This is Ms. Fernando Guido a 27 year old female who presents to the [facility] outpatient neurology department with a chief complaint [...] Within 30 min her took her to [facility]. CT brain, CTA H&N, and MRI [...] Resident, Adult Neurology (PGY-3) 04/27/2023 2:49 PM [facility] STAFF PHYSICIAN NOTE OF PERSONAL INVOLVEMENT [...] with neurology) Resources offered or consults at [facility] /[place] refused stating she would be unable to come for in person appointments. This visit was conducted as a virtual visit. Rafita Chavez MD Vascular Neurology Staff April 27, 2023 7:28 PM This note was partially generated using [employer] voice recognition system, and there may be [...] by contextual derivation. documented in this encounter [facility] 04-24-2023 Note HNO ID: [id number] Author: Eva Shin APRN.PAY STATION COLLECTOR Service: ? Author Type: Nurse Practitioner Type: Progress Notes Filed: 04/24/2023 7:59 AM Note Text: [facility] - Follow up Virtual Visit Last OV:02/17/22 Accompanied by: Self This visit was conducted as a virtual visit, with patient's permission, via ZOOM. It required patient-provider interaction for the medical decision making as documented below. Patient stated name and Patient location [place], [place] I have communicated my name and active licensure. The patient's identity and physical location were verified at the time of this visit. Either the patient or their legal marketing development representative has been informed of the risks [...] 05/10/23 Had CVA in December was hospitalized [place] loss vision R eye Botox helped at least [...] has hives and seizures Tessalon [Benzonata* Rash [id number] Anti* Contraindication-Medical Surgical Had CVA 12/2022 Zofran [...] pain free in (more content not included)... [facility] 02-17-2022 History of Present illness Narrative [...] days/month: 20 (480 headache-free hours) Migraine severity: 05/02 Patient reduction [...] for migraine Informed Consent Consent Obtained: Written [facility] Protocol A moment to CARE was completed [...] applicable Written Consent Obtained: Written LOT #: [id number] Expiration Date: Month: 1 Year: 2024 Injection Sites Left (Units) Left (Sites) Right (Units) Right (Sites) TOTAL (Units) Elevator Conductor 5 1 5 1 10 Procerus Units: [...] (Abilify) Bupropion (Wellbutrin) Escitalopram (Lexapro) Fluoxetine (Prozac) [place] (Eskalith, Lithobid) Antiemetics Ondansetron Prochlorperazine Promethazine Reglan [...] month? : 20 documented in this encounter [facility] 01-26-2022 Miscellaneous Notes LV:12/10/2021 perimenopause vs early menopause s/p TH with VMS (normal dxa on estrogen check hormones Estradiol 17B pg/mL 110 FSH See comment mIU/mL 5.3 Miss FSH levels also perfectly normal more good news Estrogen level is quite normal good news Luciana Sterling January 26, 2022 3:18 PM documented in this encounter [facility] 01-26-2022 Miscellaneous Notes The following approved medication [...] [facility] documented in this encounter [facility] 01-06-2022 Miscellaneous Notes [facility] Fax number is Faxing orders to Pt preferred hospital to have complete. Leydagail Dias January 06, 2022 12:05 PM documented in this encounter [facility] 11-22-2021 History of Present illness Narrative Virtual visit with me via Blue Nilehart due for pap/WIRE TWISTING MACHINE OPERATOR exam with PAY STATION COLLECTOR or WIRE TWISTING MACHINE OPERATOR saw Dr Parks 06/2020 distance last seen by me 05/2019 then NS 09/2019 has bloody right breast discharge NEEDS EVAL seeing featheredge machine operator for SVT reviewed interval history PHYSICIAN NOTE [...] female starts school next year lives in [place], [place] had 5 children one here for [...] past. All losses were followed by a production control coordinating clerk and the children delivered at home and remains were cremated except for alfonzo her 32 weeker. BREAST HISTORY First degree relatives: mother PM Second degree relatives: MGM Personal history of breast biopsy: no WIRE TWISTING MACHINE OPERATOR HPI Last menstrual period. Patient's last menstrual period was 11/04/2018. Age at menopause onset: 25 Menopausal symptom assessment: Vasomotor symptoms: yes better on ET still has Urinary incontinence & symptoms: no incontinence CARDIOVASCULAR Lipid & CV risk assessment: exsmoker no DVT no HTN no DM no [place] no stroke BONE STATUS Discussed calcium in [...] Paternal Aunt Seizures Father Heart Father 39 [place] other (Coagulopathy) Paternal Aunt Seizures Maternal Grandfather [...] Substance Use Topics Alcohol use: Yes Comment: [facility] Drug use: Not Currently Types: Amphetamines, [...] re-evaluation. Living Will & Medical Power of Project Hire recommended-she has Mammogram discussed age 44 NEEDS [...] c: Fernando Mayo documented in this encounter [facility] 11-12-2021 Note HNO ID: [id number] Author: Isreal Beckham MD Service: ? Author Type: Physician Type: Progress Notes Filed: 11/12/2021 11:46 AM Note Text: [facility] Neurological [facility] Patient Name: Fernando CAM Date of : 1995 Referring Provider: SELF INITIAL EPILEPSY CLINIC NOTE 11/12/2021 11:00 AM CHIEF COMPLAINT: New Patient and Seizures HISTORY OF PRESENT ILLNESS Ms. Guido is a 26 year old female seen in [facility] for initial consultation. There is no one accompanying the patient during today's visit. Handedness: Age of onset: Seizure History and Evolution Ms. 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 [...] recent EEG was done and per her [facility] neurologist (Dr. Howell) EEG and MRI from 09/04/2021 were normal. She was previously seen by Dr. Pete at [facility] in 2016 for episodes of staring and convulsions. These episodes of convulsions were confirmed to be PNES during EMU evaluation at [facility] in 2016. [address] Howell's notes indicate that he has recommended EMU evaluation at [facility] for spell classification. ED visit in Jun [...] - Seizure risk factors: Brain Tumor Unanswered CREDIT AND LOAN COLLECTIONS SUPERVISOR Infections Unanswered Developmental Delay Unanswered Family history [...] Puffs as instructed. (more content not included)... [facility] 11-12-2021 History of Present illness Narrative [facility] Patient Name: Fernando CAM Date of : 1995 Referring Provider: SELF INITIAL EPILEPSY CLINIC NOTE 11/12/2021 11:00 AM CHIEF COMPLAINT: New Patient and Seizures HISTORY OF PRESENT ILLNESS Ms. Guido is a 26 year old female seen in [facility] for initial consultation. There is no one accompanying the patient during today's visit. Handedness: Age of onset: Seizure History and Evolution Ms. 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 [...] was previously seen by Dr. Pete at [facility] in 2016 for episodes of staring and convulsions. These episodes of convulsions were confirmed to be PNES during EMU evaluation at [facility] in 2016. Dr[address] Howell's notes indicate that he has recommended EMU evaluation at [facility] for spell classification. ED visit in Jun [...] - Seizure risk factors: Brain Tumor Unanswered CREDIT AND LOAN COLLECTIONS SUPERVISOR Infections Unanswered Developmental Delay Unanswered Family history [...] (HCC) Chichi Alejo CC type 1 Chlamydia 2013 Complication of anesthesia migraines after anesthesia Fibromyalgia on gabapentin for this GERD (gastroesophageal reflux disease) Migraines perimenopause s/p TH 11/2018 rt ovary remains Polysubstance abuse ([facility]) History. Last use of any [...] Paternal Aunt Seizures Father Heart Father 39 [place] other (Coagulopathy) Paternal Aunt Seizures Maternal Grandfather other (autism, fragile x) Sister fathers side ADD/ADHD Brother mother's side Bipolar disorder Brother Autism Brother Autism Brother father s side Alcohol/Drug Brother mother's side Bipolar disorder Brother other (Down syndrome) Sister mother's side other (border line Autism) Son other (healthy) Son other (healthy) Son other (healthy) Daughter other (pneumonia) Daughter SOCIAL HISTORY: -Lives in [place], [place] -Patient lives alone? -Vocation: -Education: -Cigarette, [...] of PNES based on videoEEG evaluation at [facility] in 2016 here for evaluation of [...] the date of the service which included: [id number]-unll patient care completing clinical documentation obtaining and/or reviewing separately obtained history Isreal Beckham MD Associate Staff, Epilepsy [facility] November 12, 2021 Office phone: [phone] cc: Primary Care Physician: Gaby Lerner MD, [address] [facility] [address] [facility] [address] Referring: SELF Phone: N/A Fax: Patient: Ms. Fernando Guido [address] [facility] [address] documented in this encounter [facility] 10-25-2021 Miscellaneous Notes Botox referral sent to pharmacy. Jaki Jonas RN documented in this encounter [facility] 10-22-2021 Miscellaneous Notes The following approved medication [...] Routing to Dr. Parks. LV:04/22/2021 Dr. Parks [facility] The following diagnoses were relevant to this [...] would plan to have that done at [facility], if her insurance at the turn of the year still covers [facility]. I gave her a limited supply, as [...] 2021 2:25 PM documented in this encounter [facility] 10-22-2021 History of Present illness Narrative Headache [...] (Abilify) Bupropion (Wellbutrin) Escitalopram (Lexapro) Fluoxetine (Prozac) [place] (Eskalith, Lithobid) Antiemetics Ondansetron Prochlorperazine Promethazine Reglan [...] these with the patient: yes Eva Shin APRN.PAY STATION COLLECTOR Studies to Review: No New Health Issues: [...] (Abilify) Bupropion (Wellbutrin) Escitalopram (Lexapro) Fluoxetine (Prozac) [place] (Eskalith, Lithobid) Blood Pressure Metoprolol (Lopressor,Toprol XL) [...] which included preparing to see the patient, [id number] patient care, completing clinical documentation, performing a medically appropriate examination, counseling and educating the patient/family/caregiver and ordering medications, tests, or procedures. Eva Shin APRN.PAY STATION COLLECTOR documented in this encounter [facility] Work Phone: [phone] Procedure note* Félix Howell MD - 09/06/2021 [...] stimulation, drowsiness or sleep. [facility] Miscellaneous Notes* Interdisciplinary - Jaspreet Virgen - 09/04/2021 9:00 AM EST EEG complete. Dr. Howell to read. [facility] Emergency department Note* Philip Robin RN [...] not care, she wants to leave now. [facility] aoc director combat operations officer Sarath in room and talks with [...] needed for Wheezing and/or Shortness of breath. ProviderMinor MD Fluticasone Furoate-Vilanterol (BREO ELLIPTA) 200-25 MCG/INH AEPB Inhale 1 Actuation into the lungsdaily. 60 each Alexandra, Tyson, CURTAIN STRETCHER PAY STATION COLLECTOR lithium 600 MG capsule Take 600 mg by mouth 2 times daily (with meals). ProviderMinor MD tiotropium bromide monohydrate (SPIRIVA RESPIMAT) 2.5 MCG/ACT AERS Inhale 2 puffs into the lungs daily. ProviderMinor MD topiramate (TOPAMAX) 25 MG tablet Take 75 mg by mouth daily. ProviderMinor MD Allergies (Review Complete on: 07/06/21) Agent [...] and reviewed Scott Wilson MD 07/06/211928 * EcruMegan keene MST - 07/06/2021 6:48 PM EST Pt stated she wasn't feeling well. She said that she felt like she was going to have another seizure. Pt closed her eyes, the pts legs and arms started shaking shortly after. lasted about 2 minutes. * Megan Arita MST - 07/06/2021 6:25 PM EST Pt is alert and on the phone talking to haider. * Carolyn Palacios MST - 07/06/2021 6:16 [...] home today. Pt says drove here from [place] and does not have anyone to pick [...] nad noted, skin p/w/d. [facility] Miscellaneous Notes* D/C Planning - Radha Jimenes RN - 07/06/2021 5:03 PM EST Spoke with pt at bedside re transportation, She is currently waiting on [facility] to call her back. [facility] does not provide transportation. [email or web address] shuttle is not available. documented in this [facility]05-07-2021 NotePROCEDURE: KNEE RIGHT, 11/27/2020 8:21 AM [...] No acute osseous pathology 3. Minimal patellar enthesopathyAultman Alliance Community [facility] NotePROCEDURE: PATELLA RIGHT, 10/07/2020, 10:29 AM [...] and postoperative gas. 4. Soft tissue swelling remains.[facility]03-03-2021 NotePROCEDURE: PATELLA RIGHT, 09/23/2020 2:21 PM [...] 4. Anterior soft tissue [facility] the [facility]2020 NotePROCEDURE: PATELLA RIGHT, 07/08/2020 8:00 AM [...] cruciate ligament repair. 2. No acute osseous pathology.[facility]11-11-2019 History of Past illness Narrative* Problem Noted Date Resolved Date Hormone replacement therapy (HRT) 06/03/2019 07/16/2020 Recurrent loss (CODE) 10/13/2016 12/27/2016 Overview: Recommend weekly NST Iman Akhtar MD October 13, 2016 reviewed history extensively see records for info ordered APL workup negative at [facility]. Iman Akhtar MD 10/13/2016Pt states she is . One child at age 1 from pneumonia. She had several 2nd trimester losses. The FOB is the father of 7 of her pregnancies. He is here with her today. [facility] 10/13/2016 12/27/2016 Overview: 10/13/2016Patient is transferring care from Dr Varela in [place]. She states she had started care at [facility] and then transferred to [place] because she moved to the [place] area. She has been recently seen at in [place] by [facility] and hospitalized for PTL. Patient signed a release of records form to obtain her medical records from [facility], [facility] and Dr Varela.TKRN History of labor, current 09/2212/27/2016 Overview: Today 1.5 cm, States she was 3 cm last week October 13, 2016 given bmz on 10/01- admitted at [facility] for fever Iman Akhtar MD History of labor 10/13/2016 017 Overview: 10/13/2016She has been recently seen at in [place] by [facility] and hospitalized for PTL. She states she received steroid injections and continues Wellman injections in the home. 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 She has been off Keppra since 10/2015. [...] of this encounter (statuses as of 10/22/2021) [facility]11-11-2019 History of Past illness Narrative* Problem Noted Date Resolved Date Hormone replacement therapy (HRT) 06/03/2019 07/16/2020 Recurrent loss (CODE) 10/13/2016 12/27/2016 Overview: Recommend weekly NST Iman Akhtar MD October 13, 2016 reviewed history extensively see records for info ordered APL workup negative at [facility]. Iman Akhtar MD 10/13/2016Pt states she is . One child at age 1 from pneumonia. She had several 2nd trimester losses. The FOB is the father of 7 of her pregnancies. He is here with her today. TKRN with care elsewhere, [facility] 10/13/2016 12/27/2016 Overview: 10/13/2016Patient is transferring care from Dr Varela in [place]. She states she had started care at [facility] and then transferred to [place] because she moved to the [place] area. She has been recently seen at in [place] by [facility] and hospitalized for PTL. Patient signed a release of records form to obtain her medical records from [facility], [facility] and Dr Varela.TKRN History of labor, current 09/2212/27/2016 Overview: Today 1.5 cm, States she was 3 cm last week October 13, 2016 given bmz on admitted at [facility] for fever Iman Akhtar MD History of labor 10/13/2016 017 Overview: 10/13/2016She has been recently seen at in [place] by [facility] and hospitalized for PTL. 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 She has been off Keppra since 10/2015. [...] of this encounter (statuses as of 10/22/2021) [facility]11-11-2019 History of Past illness Narrative* Problem Noted Date Resolved Date Hormone replacement therapy (HRT) 06/03/2019 07/16/2020 Recurrent loss (CODE) 10/13/2016 12/27/2016 Overview: Recommend weekly NST Iman Akhtar MD October 13, 2016 reviewed history extensively see records for info ordered APL workup negative at [facility]. Iman Akhtar MD 10/13/2016Pt states she is . One child at age 1 from pneumonia. She had several 2nd trimester losses. The FOB is the father of 7 of her pregnancies. He is here with her today. TKRN with care elsewhere, [facility] 10/13/2016 12/27/2016 Overview: 10/13/2016Patient is transferring care from Dr Varela in [place]. She states she had started care at [facility] and then transferred to [place] because she moved to the [place] area. She has been recently seen at in [place] by [facility] and hospitalized for PTL. Patient signed a release of records form to obtain her medical records from [facility], [facility] and Dr Varela.TKRN History of labor, current 09/2212/27/2016 Overview: Today 1.5 cm, States she was 3 cm last week October 13, 2016 given bmz on admitted at [facility] for fever Iman Akhtar MD History of labor 10/13/2016 017 Overview: 10/13/2016She has been recently seen at in [place] by [facility] and hospitalized for PTL. She states she received steroid injections and continues Wellman injections in the home. 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 She has been off Keppra since 10/2015. [...] of this encounter (statuses as of 10/25/2021) [facility]11-11-2019 History of Past illness Narrative* Problem Noted Date Resolved Date Hormone replacement therapy (HRT) 06/03/2019 07/16/2020 Recurrent loss (CODE) 10/13/2016 12/27/2016 Overview: Recommend weekly NST Iman Akhtar MD October 13, 2016 reviewed history extensively see records for info ordered APL workup negative at [facility]. Iman Akhtar MD 10/13/2016Pt states she is . One child at age 1 from pneumonia. She had several 2nd trimester losses. The FOB is the father of 7 of her pregnancies. He is here with her today. TKRN with care elsewhere, [facility] 10/13/2016 12/27/2016 Overview: 10/13/2016Patient is transferring care from Dr Varela in [place]. She states she had started care at [facility] and then transferred to [place] because she moved to the [place] area. She has been recently seen at in [place] by [facility] and hospitalized for PTL. Patient signed a release of records form to obtain her medical records from [facility], [facility] and Dr Varela.TKRN History of labor, current 09/2212/27/2016 Overview: Today 1.5 cm, States she was 3 cm last week October 13, 2016 given bmz on admitted at [facility] for fever Iman Akhtar MD History of labor 10/13/2016 017 Overview: 10/13/2016She has been recently seen at in [place] by [facility] and hospitalized for PTL. She states she received steroid injections and continues Wellman injections in the home. 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 She has been off Keppra since 10/2015. 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 Iman Akhtar MD 10/13/2016Pt states she is . One child at age 1 from pneumonia. She had several 2nd trimester losses. The FOB is the father of 7 of her pregnancies. He is here with her today. TKRN with care elsewhere, [facility] 10/13/2016 12/27/2016 Overview: 10/13/2016Patient is transferring care from Dr Varela in [place]. She states she had started care at [facility] and then transferred to [place] because she moved to the [place] area. She has been recently seen at in [place] by [facility] and hospitalized for PTL. Patient signed a release of records form to obtain her medical records from [facility], [facility] and Dr Varela.TKRN History of labor, current 09/2212/27/2016 Overview: Today 1.5 cm, States she was 3 cm last week October 13, 2016 given bmz on 10/01- admitted at [facility] for fever Iman Akhtar MD History of labor 10/13/2016 017 Overview: 10/13/2016Shbarbi has been recently seen at in [place] by [facility] and hospitalized for PTL. 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 She has been off Keppra since 10/2015. [...] of this encounter (statuses as of 12/10/2021) [facility]03-23-2017 History of Past illness Narrative* Problem Noted Date Resolved Date Recurrent loss (CODE) 10/13/2016 12/27/2016 Overview: Recommend weekly NST mIan Akhtar MD October 13, 2016 reviewed history extensively see records for info ordered APL workup negative at [facility]. Iman Akhtar MD 10/13/2016Pt states she is . One child at age 1 from pneumonia. She had several 2nd trimester losses. The FOB is the father of 7 of her pregnancies. He is here with her today. TKRN with care elsewhere, [facility] 10/13/2016 12/27/2016 Overview: 10/13/2016Patient is transferring care from Dr Varela in [place]. She states she had started care at [facility] and then transferred to [place] because she moved to the [facility]. She has been recently seen at in [place] by [facility] and hospitalized for PTL. Patient signed a release of records form to obtain her medical records from [facility], [facility] and Dr Varela.TKRN History of labor, current 09/2212/27/2016 Overview: Today 1.5 cm, States she was 3 cm last week October 13, 2016 given bmz on 10/01- admitted at [facility] for fever Iman Akhtar MD History of labor 10/13/2016 017 Overview: 10/13/2016Shbarbi has been recently seen at in [place] by [facility] and hospitalized for PTL. 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 She has been off Keppra since 10/2015. [...] of this encounter (statuses as of 01/06/2022) [facility]03-23-2017 History of Past illness Narrative* Problem Noted Date Resolved Date Recurrent loss (CODE) 10/13/2016 12/27/2016 Overview: Recommend weekly NST Iman Akhtar MD October 13, 2016 reviewed history extensively see records for info ordered APL workup negative at [facility]. Iman Akhtar MD 10/13/2016Pt states she is . One child at age 1 from pneumonia. She had several 2nd trimester losses. The FOB is the father of 7 of her pregnancies. He is here with her today. TKRN with care elsewhere, [facility] 10/13/2016 12/27/2016 Overview: 10/13/2016Patient is transferring care from Dr Varela in [place]. She states she had started care at [facility] and then transferred to [place] because she moved to the [place] area. She has been recently seen at in [place] by [facility] and hospitalized for PTL. Patient signed a release of records form to obtain her medical records from [facility], [facility] and Dr Varela.TKRN History of labor, current 09/2212/27/2016 Overview: Today 1.5 cm, States she was 3 cm last week October 13, 2016 given bmz on 10/01- admitted at [facility] for fever Iman Akhtar MD History of labor 10/13/2016 017 Overview: 10/13/2016Shbarbi has been recently seen at in [place] by [facility] and hospitalized for PTL. She states she received steroid injections and continues Wellman injections in the home. 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 She has been off Keppra since 10/2015. [...] of this encounter (statuses as of 01/26/2022) [facility]03-23-2017 History of Past illness Narrative* Problem Noted Date Resolved Date Recurrent loss (CODE) 10/13/2016 12/27/2016 Overview: Recommend weekly NST Iman Akhtar MD October 13, 2016 reviewed history extensively see records for info ordered APL workup negative at [facility]. Iman Akhtar MD 10/13/2016Pt states she is . One child at age 1 from pneumonia. She had several 2nd trimester losses. The FOB is the father of 7 of her pregnancies. He is here with her today. TKRN with care elsewhere, [facility] 10/13/2016 12/27/2016 Overview: 10/13/2016Patient is transferring care from Dr Varela in [place]. She states she had started care at [facility] and then transferred to [place] because she moved to the [place] area. She has been recently seen at in [place] by [facility] and hospitalized for PTL. Patient signed a release of records form to obtain her medical records from [facility], [facility] and Dr Varela.TKRN History of labor, current 09/2212/27/2016 Overview: Today 1.5 cm, States she was 3 cm last week October 13, 2016 given bmz on 10/01- admitted at [facility] for fever Iman Akhtar MD History of labor 10/13/2016 017 Overview: 10/13/2016Shbarbi has been recently seen at in [place] by [facility] and hospitalized for PTL. She states she received steroid injections and continues Wellman injections in the home. 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 She has been off Keppra since 10/2015. 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 Iman Akhtar MD 10/13/2016Pt states she is . One child at age 1 from pneumonia. She had several 2nd trimester losses. The FOB is the father of 7 of her pregnancies. He is here with her today. TKRN with care elsewhere, [facility] 10/13/2016 12/27/2016 Overview: 10/13/2016Patient is transferring care from Dr Varela in [place]. She states she had started care at [facility] and then transferred to [place] because she moved to the [facility]. She has been recently seen at in [place] by [facility] and hospitalized for PTL. Patient signed a release of records form to obtain her medical records from [facility], [place] [facility] and Dr Varela.TKRN History of labor, current 09/2212/27/2016 Overview: Today 1.5 cm, States she was 3 cm last week October 13, 2016 given bmz on 10/01- admitted at [facility] for fever Iman Akhtra MD History of labor 10/13/2016 017 Overview: 10/13/2016Ashley has been recently seen at in [place] by [facility] and hospitalized for PTL. She states she received steroid injections and continues Wellman injections in the home. 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 She has been off Keppra since 10/2015. 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 Iman Akhtar MD 10/13/2016Pt states she is . One child at age 1 from pneumonia. She had several 2nd trimester losses. The FOB is the father of 7 of her pregnancies. He is here with her today. TKRN with care elsewhere, antepartum 10/13/2016 12/27/2016 Overview: 10/13/2016Patient is transferring care from Dr Varela in [place]. She states she had started care at [facility] and then transferred to [place] because she moved to the [place] area. She has been recently seen at in [place] by [facility] and hospitalized for PTL. Patient signed a release of records form to obtain her medical records from [facility], [facility] and Dr Varela.TKRN History of labor, current 10/13/2016 12/27/2016 Overview: Today 1.5 cm, States she was 3 cm last week October 13, 2016 given bmz on admitted at [facility] for fever Iman Akhtar MD History of labor 10/13/201612/2016 Overview: 10/13/2016Ashley has been recently seen at in [place] by [facility] and hospitalized for PTL. 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 She has been off Keppra since 10/2015. 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 Iman Akhtar MD 10/13/2016Pt states she is . One child at age 1 from pneumonia. She had several 2nd trimester losses. The FOB is the father of 7 of her pregnancies. He is here with her today. TKRN with care elsewhere, antepartum 10/13/2016 12/27/2016 Overview: 10/13/2016Patient is transferring care from Dr Varela in [place]. She states she had started care at [facility] and then transferred to [place] because she moved to the [place] area. She has been recently seen at in [place] by [facility] and hospitalized for PTL. Patient signed a release of records form to obtain her medical records from [facility], [facility] and Dr Varela.TKRN History of labor, current 10/13/2016 12/27/2016 Overview: Today 1.5 cm, States she was 3 cm last week October 13, 2016 given bmz on 10/01- admitted at [facility] for fever Iman Akhtar MD History of labor 10/13/201612/2016 Overview: 10/13/2016Ashley has been recently seen at in [place] by [facility] and hospitalized for PTL. 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 She has been off Keppra since 10/2015. 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 Iman Akhtar MD 10/13/2016Pt states she is . One child at age 1 from pneumonia. She had several 2nd trimester losses. The FOB is the father of 7 of her pregnancies. He is here with her today. TKRN with care elsewhere, antepartum 10/13/2016 12/27/2016 Overview: 10/13/2016Patient is transferring care from Dr Varela in [place]. She states she had started care at [facility] and then transferred to [place] because she moved to the [facility]. She has been recently seen at in [place] by [facility] and hospitalized for PTL. Patient signed a release of records form to obtain her medical records from [facility], [facility] and Dr Varela.TKRN History of labor, current 10/13/2016 12/27/2016 Overview: Today 1.5 cm, States she was 3 cm last week October 13, 2016 given bmz on 10/01- admitted at [facility] for fever Iman Akhtar MD History of labor 10/13/201612/2016 Overview: 10/13/2016Shbarbi has been recently seen at in [place] by [facility] and hospitalized for PTL. 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 She has been off Keppra since 10/2015. 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 Iman Akhtar MD 10/13/2016Pt states she is . One child at age 1 from pneumonia. She had several 2nd trimester losses. The FOB is the father of 7 of her pregnancies. He is here with her today. TKRN with care elsewhere, antepartum 10/13/2016 12/27/2016 Overview: 10/13/2016Patient is transferring care from Dr Varela in [place]. She states she had started care at [facility] and then transferred to [place] because she moved to the [place] area. She has been recently seen at in [place] by [facility] and hospitalized for PTL. Patient signed a release of records form to obtain her medical records from [facility], [facility] and Dr Varela.TKRN History of labor, current 10/13/2016 12/27/2016 Overview: Today 1.5 cm, States she was 3 cm last week October 13, 2016 given bmz on admitted at [facility] for fever Iman Akhtar MD History of labor 10/13/201612/2016 Overview: 10/13/2016She has been recently seen at in [place] by [facility] and hospitalized for PTL. 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 She has been off Keppra since 10/2015. 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 Iman Akhtar MD 10/13/2016Pt states she is . One child at age 1 from pneumonia. She had several 2nd trimester losses. The FOB is the father of 7 of her pregnancies. He is here with her today. TKRN with care elsewhere, antepartum 10/13/2016 12/27/2016 Overview: 10/13/2016Patient is transferring care from Dr Varela in [place]. She states she had started care at [facility] and then transferred to [place] because she moved to the [place] area. She has been recently seen at in [place] by [facility] and hospitalized for PTL. Patient signed a release of records form to obtain her medical records from [facility], [facility] and Dr Varela.TKRN History of labor, current 10/13/2016 12/27/2016 Overview: Today 1.5 cm, States she was 3 cm last week October 13, 2016 given bmz on admitted at [facility] for fever Iman Akhtar MD History of labor 10/13/201612/2016 Overview: 10/13/2016She has been recently seen at in [place] by [facility] and hospitalized for PTL. She states she received steroid injections and continues Wellman injections in the home. 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 She has been off Keppra since 10/2015. 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 Iman Akhtar MD 10/13/2016Pt states she is . One child at age 1 from pneumonia. She had several 2nd trimester losses. The FOB is the father of 7 of her pregnancies. He is here with her today. TKRN with care elsewhere, antepartum 10/13/2016 12/27/2016 Overview: 10/13/2016Patient is transferring care from Dr Varela in [place]. She states she had started care at [facility] and then transferred to [place] because she moved to the [place] area. She has been recently seen at in [place] by [facility] and hospitalized for PTL. Patient signed a release of records form to obtain her medical records from [facility], [facility] and Dr Varela.TKRN History of labor, current 10/13/2016 12/27/2016 Overview: Today 1.5 cm, States she was 3 cm last week October 13, 2016 given bmz on admitted at [facility] for fever Iman Akhtar MD History of labor 10/13/201612/2016 Overview: 10/13/2016She has been recently seen at in [place] by [facility] and hospitalized for PTL. She states she received steroid injections and continues Wellman injections in the home. 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 She has been off Keppra since 10/2015. 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 Iman Akhtar MD 10/13/2016Pt states she is . One child at age 1 from pneumonia. She had several 2nd trimester losses. The FOB is the father of 7 of her pregnancies. He is here with her today. TKRN with care elsewhere, antepartum 10/13/2016 12/27/2016 Overview: 10/13/2016Patient is transferring care from Dr Varela in [place]. She states she had started care at [facility] and then transferred to [place] because she moved to the [place] area. She has been recently seen at in [place] by [facility] and hospitalized for PTL. Patient signed a release of records form to obtain her medical records from [facility], [facility] and Dr Varela.TKRN History of labor, current 10/13/2016 12/27/2016 Overview: Today 1.5 cm, States she was 3 cm last week October 13, 2016 given bmz on 10/01- admitted at [facility] for fever Iman Akhtar MD History of labor 10/13/201612/2016 Overview: 10/13/2016She has been recently seen at in [place] by [facility] and hospitalized for PTL. She states she received steroid injections and continues Wellman injections in the home. 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 She has been off Keppra since 10/2015. [...] of this encounter (statuses as of 08/31/2023) [facility]03-23-2017 History of Past illness Narrative* Problem Noted Date Diagnosed Date Resolved Date Recurrent loss (CODE) 10/13/2016 12/27/2016 Overview: Recommend weekly NST Iman Akhtar MD October 13, 2016 reviewed history extensively see records for info ordered APL workup negative at [facility]. mIan Akhtar MD 10/13/2016Pt states she is . One child at age 1 from pneumonia. She had several 2nd trimester losses. The FOB is the father of 7 of her pregnancies. He is here with her today. TKRN with care elsewhere, antepartum 10/13/2016 12/27/2016 Overview: 10/13/2016Patient is transferring care from Dr Varela in [place]. She states she had started care at [facility] and then transferred to [place] because she moved to the [place] area. She has been recently seen at in [place] by [facility] and hospitalized for PTL. Patient signed a release of records form to obtain her medical records from [facility], [facility] and Dr Varela.TKRN History of labor, current 10/13/2016 12/27/2016 Overview: Today 1.5 cm, States she was 3 cm last week October 13, 2016 given bmz on 10/01- admitted at [facility] for fever Iman Akhtar MD History of labor 10/13/201612/2016 Overview: 10/13/2016Shbarbi has been recently seen at in [place] by [facility] and hospitalized for PTL. 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 She has been off Keppra since 10/2015. [...] of this encounter (statuses as of 09/05/2023) [facility]03-23-2017 History of Past illness Narrative* Problem Noted Date Diagnosed Date Resolved Date Recurrent loss (CODE) 10/13/2016 12/27/2016 Overview: Recommend weekly NST Iman Akthar MD October 13, 2016 reviewed history extensively see records for info ordered APL workup negative at [facility]. Iman Akhtar MD 10/13/2016Pt states she is . One child at age 1 from pneumonia. She had several 2nd trimester losses. The FOB is the father of 7 of her pregnancies. He is here with her today. TKRN with care elsewhere, antepartum 10/13/2016 12/27/2016 Overview: 10/13/2016Patient is transferring care from Dr Varela in [place]. She states she had started care at [facility] and then transferred to [place] because she moved to the [place] area. She has been recently seen at in [place] by [facility] and hospitalized for PTL. Patient signed a release of records form to obtain her medical records from [facility], [facility] and Dr Varela.TKRN History of labor, current 10/13/2016 12/27/2016 Overview: Today 1.5 cm, States she was 3 cm last week October 13, 2016 given bmz on 10/01- admitted at [facility] for fever Iman Akhtar MD History of labor 10/13/201612/2016 Overview: 10/13/2016Ashley has been recently seen at in [place] by [facility] and hospitalized for PTL. She states she received steroid injections and continues Wellman injections in the home. 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 She has been off Keppra since 10/2015. [...] of this encounter (statuses as of 09/05/2023) [facility]03-23-2017 History of Past illness Narrative* Problem Noted Date Diagnosed Date Resolved Date Recurrent loss (CODE) 10/13/2016 12/27/2016 Overview: Recommend weekly NST Iman Akhtar MD October 13, 2016 reviewed history extensively see records for info ordered APL workup negative at [facility]. Iman Akhtar MD 10/13/2016Pt states she is . One child at age 1 from pneumonia. She had several 2nd trimester losses. The FOB is the father of 7 of her pregnancies. He is here with her today. TKRN with care elsewhere, antepartum 10/13/2016 12/27/2016 Overview: 10/13/2016Patient is transferring care from Dr Varela in [place]. She states she had started care at [facility] and then transferred to [place] because she moved to the [place] area. She has been recently seen at in [place] by [facility] and hospitalized for PTL. Patient signed a release of records form to obtain her medical records from [facility], [facility] and Dr Varela.TKRN History of labor, current 10/13/2016 12/27/2016 Overview: Today 1.5 cm, States she was 3 cm last week October 13, 2016 given bmz on 10/01- admitted at [facility] for fever Iman Akhtar MD History of labor 10/13/201612/2016 Overview: 10/13/2016She has been recently seen at in [place] by [facility] and hospitalized for PTL. She states she received steroid injections and continues Wellman injections in the home. 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 She has been off Keppra since 10/2015. [...] as of this encounter (statuses as of 09/22/2023) [facility]03-[facility]-2017 History of Past illness Narrative* Problem Noted Date Diagnosed Date Resolved Date Recurrent loss (CODE) 10/13/2016 12/27/2016 Overview: Recommend weekly NST Iman Akhtar MD October 13, 2016 reviewed history extensively see records for info ordered APL workup negative at [facility]. Iman Akhtar MD 10/13/2016Pt states she is . One child at age 1 from pneumonia. She had several 2nd trimester losses. The FOB is the father of 7 of her pregnancies. He is here with her today. TKRN with care elsewhere, antepartum 10/13/2016 12/27/2016 Overview: 10/13/2016Patient is transferring care from Dr Varela in [place]. She states she had started care at [facility] and then transferred to [place] because she moved to the [place] area. She has been recently seen at in [place] by [facility] and hospitalized for PTL. Patient signed a release of records form to obtain her medical records from [facility], [facility] and Dr Varela.TKRN History of labor, current 10/13/2016 12/27/2016 Overview: Today 1.5 cm, States she was 3 cm last week October 13, 2016 given bmz on 10/01- admitted at [facility] for fever Iman Akhtar MD History of labor 10/13/201612/2016 Overview: 10/13/2016Shbarbi has been recently seen at in [place] by [facility] and hospitalized for PTL. She states she received steroid injections and continues Wellman injections in the home. 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 She has been off Keppra since 10/2015. [...] as of this encounter (statuses as of 09/27/2023) [facility]* Flory Titus RN: PERFORM Event Display: Depart Summary ED Authored Date: [id number] Discharge Instructions Thank you for allowing [facility] [...] Within 2-4 days Where: [address] [place] [address]- Allergies Brethine Keflex Latex Procardia (hypotension) amoxicillin [...] delay the healing process. You may use zztn-dnl-cktvivz pain medicine to control pain, unless another [...] or as directed by your healthcare provider [phone] The Instant Information. [address] [place] [address], [place] [address]. All rights reserved. This information is not intended as a substitute for professional medical care. Always follow yourhealthcare professional's instructions. Additional Information VACCINATE! IT SAVES LIVES! Members of the community who have not yet received the COVID-19 vaccine and would like to receive it can visit one of [facility] vaccine clinics. There are many vaccine clinic locations within the [facility]. For locations and available times, please visit www.gettheshot.coronavirus.[place].gov/. It is important to note that some COVID mobile vaccine clinics are held outdoors and may be canceled in rainy or stormy conditions. To learn more about pediatric vaccinations (ages 5-11), we invite you to visit the [facility] webpage. https://www.[employer].org/pages/0141-Jdfir-Ecljpfnlsie-Qorfezoorb-Yrgcm-Bmn stions.htmlTo learn more about the COVID-19 vaccine, we invite you to visit the CDC website for a list of frequently asked questions. https://www.cdc.gov/coronavirus/2019-ncov/vaccines/faq.html [facility] Patient Portal Access Instructions: Stay connected with your healthcare team and access your personal medical information anytime with the [employer] Patient Portal. If you would like a full copy of your medical records please contact the [facility] Medical Records Department Monday through Monday between 8a.m. and 4:30p.m. Please follow the directions below to access the portal: 1.Access the email account you provided upon registration to the hospital.2.Look for an invitation email from [facility].3.Open the email and access the invitation link: Accept Invitation to [facility]4.Fill in the required webb to create your account. Sign into [email or web address] with your username and password that you [...] you will allow to register on the [facility] Patient Portal for access to your information. You can also access the [facility] Patient Portal on the P[employer]. Simply click on Health Records under HealthData and then click on the [employer] logo. [...] Call your local pharmacy or go to [email or web address] to find one close to you.3.Make use of household items: Use cat litter or old coffee grounds to dispose medications if other options arenot available. Mix your drugs with these household products, seal them in an airtight container andthrow it into the garbage. Call [facility]: [phone] to be sure your drugs can be [...] aware that I should contact my doctor. Patient/Seaming Inspector Signature: Date/Time: Relationship to Patient: Witness Name/Signature: Date/Time: [facility] department Discharge summary* Teodora Hoff RN: PERFORM Event Display: Depart Summary ED Authored Date: Discharge Instructions Thank you for allowing [facility] to assist you with your healthcare needs. The following is importantdischarge information regarding your hospital visit. Diagnosis from Today's Visit Edema of lower leg Lower leg pain-swelling What to Do Next Instructions from Your Care Team Discharge ED Outpatient Vascular Lab - Ordered -- Test Requested: Bilateral LE Doppler US for DVT, Lower extremity, Bilateral, Test Reason: Swelling, Mon-Fri 6am-6:30pm: Call [phone] to schedule a same day appointment for testing or report to the Vascular Lab at 6:00 AM. Please be aware that the... Post Acute Orders No qualifying data available. You Need to Schedule the Following Appointments Follow Up with LEXA RODRIGUEZ MD When Within 2-4 days Why: Return to ED if symptoms worsen Where: [address] [place] [address]- Allergies Brethine Keflex Latex Procardia (hypotension) amoxicillin [...] insufficiency or varicose veins, don't sit or sonar watchstander one place for long periods of time. [...] or use an increased number of pillows [phone] The Instant Information. [address] [place] [address]. All rights reserved. This information is not intended as a substitute for professional medical care. Always follow yourhealthcare professional's instructions. Additional Information VACCINATE! IT SAVES LIVES! Members of the community who have not yet received the COVID-19 vaccine and would like to receive it can visit one of [facility] vaccine clinics. There are many vaccine clinic locations within the [facility]. For locations and available times, please visit www.gettheshot.coronavirus.[place].gov/. It is important to note that some COVID mobile vaccine clinics are held outdoors and may be canceled in rainy or stormy conditions. To learn more about pediatric vaccinations (ages 5-11), we invite you to visit the [facility] webpage. https://www.[facility].org/pages/4210-Dawuo-Tyvizipamjg-Teifzsiacu-Dsfaq-Gvp stions.htmlTo learn more about the COVID-19 vaccine, we invite you to visit the CDC website for a list of frequently asked questions. https://www.cdc.gov/coronavirus/2019-ncov/vaccines/faq.html [facility] Patient Portal Access Instructions: Stay connected with your healthcare team and access your personal medical information anytime with the [facility] Patient Portal. If you would like a full copy of your medical records please contact the [facility] Medical Records Department Monday through Monday between 8a.m. and 4:30p.m. Please follow the directions below to access the portal: 1.Access the email account you provided upon registration to the hospital.2.Look for an invitation email from [facility].3.Open the email and access the invitation link: Accept Invitation to [facility]4.Fill in the required webb to create your account. Sign into [email or web address] with your username and password that you [...] you will allow to register on the [facility] Patient Portal for access to your information. You can also access the [facility] Patient Portal on the PagerDuty. Simply click on Health Records under [employer] and then click on the [employer] logo. [...] Call your local pharmacy or go to [email or web address]/[email or web address] to find one close to you.3.Make use of household items: Use cat litter or old coffee grounds to dispose medications if other options arenot available. Mix your drugs with these household products, seal them in an airtight container andthrow it into the garbage. Call [facility]: [phone] to be sure your drugs can be [...] aware that I should contact my doctor. Patient/Seaming Inspector Signature: Date/Time: Relationship to Patient: Witness Name/Signature: Date/Time: [facility] department Discharge summary* INGA Pope: PERFORM Event Display: Depart Summary ED Authored Date: Discharge Instructions Thank you for allowing [facility] to assist you with your healthcare needs. [...] MD When Within 2-4 days Where: [address] [facility], [place] [address]- Allergies Brethine Keflex Latex Procardia (hypotension) amoxicillin [...] the smoke from others. You may use rzhd-utw-tvqbebv acetaminophen or ibuprofen for fever, muscle aching, [...] body and be dangerous to your health. Gbfw-bzz-etsejyp remedies won't shorten the length of the [...] or as directed by your healthcare provider [phone] The Instant Information. [address] [place] [address]. All rights reserved. This information is not intended as a substitute for professional medical care. Always follow yourhealthcare professional's instructions. Additional Information VACCINATE! IT SAVES LIVES! Members of the community who have not yet received the COVID-19 vaccine and would like to receive it can visit one of [facility] vaccine clinics. There are many vaccine clinic locations within the [facility]. For locations and available times, please visit www.gettheshot.coronavirus.[place].gov/. It is important to note that some COVID mobile vaccine clinics are held outdoors and may be canceled in rainy or stormy conditions. To learn more about pediatric vaccinations (ages 5-11), we invite you to visit the [facility] webpage. https://www.[facility].org/pages/0292-Bipsb-Amrctnnwtix-Fdblwfjybm-Sptfx-Zis stions.htmlTo learn more about the COVID-19 vaccine, we invite you to visit the CDC website for a list of frequently asked questions. https://www.cdc.gov/coronavirus/2019-ncov/vaccines/faq.html [employer] Patient Portal Access Instructions: Stay connected with your healthcare team and access your personal medical information anytime with the [employer] Patient Portal. If you would like a full copy of your medical records please contact the [facility] Medical Records Department Monday through Monday between 8a.m. and 4:30p.m. Please follow the directions below to access the portal: 1.Access the email account you provided upon registration to the [facility].2.Look for an invitation email from [facility].3.Open the email and access the invitation link: Accept Invitation to [facility]4.Fill in the required webb to create your account. Sign into [email or web address] with your username and password that you [...] you will allow to register on the [facility] Patient Portal for access to your information. You can also access the [facility] Patient Portal on the PagerDuty. Simply click on Health Records under [employer] and then click on the [employer] logo. [...] Call your local pharmacy or go to http://bit.SportsBeat.com/8O4Gm4s to find one close to you.3.Make use of household items: Use cat litter or old coffee grounds to dispose medications if other options arenot available. Mix your drugs with these household products, seal them in an airtight container andthrow it into the garbage. Call [facility]: [phone] to be sure your drugs can be [...] aware that I should contact my doctor. Patient/Seaming Inspector Signature: Date/Time: Relationship to Patient: Witness Name/Signature: Date/Time: [facility] Evaluation + Plan note Future Appointments Appointment Date:06/29/2023 02:15:00 PM Scheduled Provider: Location:[facility] Appointment Type:[facility] Evaluation + Plan note Future Appointments Appointment Date:06/05/2023 09:30:00 AM Scheduled Provider: Location:[facility] Appointment Type:US Breast Bilateral Complete Appointment Date:06/29/2023 02:15:00 PM Scheduled Provider: Location:[facility] Appointment Type:CV OV Future Scheduled Tests Radiology* US Breast Bilateral Complete 06/05/23 [facility] Evaluation + Plan note Future Appointments Appointment Date:01/01/2024 04:00:00 PM Scheduled Provider: Location:[facility] Appointment Type:CV OV [facility] Evaluation note* Diagnosis Pseudoseizure- Primary Other convulsions documented in this encounter [facility] noteThere may be information available, but it has not been provided by the sender.[facility] Work Phone: Evaluation note* Diagnosis Stage 1 mild COPD by GOLD classification ([facility]) documented in this encounter [facility] note* Diagnosis Stage 1 mild COPD by GOLD classification (HCC) documented in this encounter [facility] note* Diagnosis Headache disorder Headache Seizure disorder (HCC) Unspecified epilepsy without mention of intractable epilepsy documented in this encounter [facility] note* Diagnosis Intractable chronic migraine without aura and without status migrainosus- Primary Chronic migraine without aura, with intractable migraine, so stated, without mention of status migrainosus documented in this encounter [facility] note* Diagnosis Seizure-like activity (HCC) Other convulsions documented in this encounter [facility] note* Diagnosis perimenopause s/p TH- Primary Symptomatic states associated with artificial menopause Hormone replacement therapy (HRT) Need for prophylactic hormone replacement therapy (postmenopausal) Bipolar 1 disorder (HCC) Bipolar I disorder, most recent episode (or current) unspecified Seizure (HCC) Other convulsions Nipple discharge Other sign and symptom in breast documented in this encounter [facility] note* Diagnosis Intractable chronic migraine without aura and without status migrainosus- Primary Chronic migraine without aura, with intractable migraine, so stated, without mention of status migrainosus documented in this encounter [facility] note* Diagnosis Conversion disorder- [facility] Diagnosis Intractable chronic migraine without aura and without status migrainosus- Primary Chronic migraine without aura, with intractable migraine, so stated, without mention of status migrainosus documented in this encounter [facility] note* Diagnosis perimenopause s/p TH- Primary Symptomatic states associated with artificial menopause Family history of breast cancer Family history of malignant neoplasm of breast Bloody discharge from right nipple Other sign and symptom in breast Mastalgia Mastodynia Hormone replacement therapy (HRT) Need for prophylactic hormone replacement therapy (postmenopausal) [facility] Diagnosis Bipolar 1 disorder (HCC)- Primary Bipolar I disorder, most recent episode (or current) unspecified [facility]* Diagnosis Chronic pain syndrome- Primary documented in this encounter [facility] note* Diagnosis Other chronic pain- Primary Myofascial pain syndrome Mylagia and myositis, unspecified Fibromyalgia Mylagia and myositis, unspecified Chronic pain disorder Chronic pain syndrome Myofascial pain syndrome Mylagia and myositis, unspecified [facility] Diagnosis Bloody discharge from right nipple- Primary Other sign and symptom in breast Mastodynia Myofascial pain syndrome Mylagia and myositis, unspecified documented in this encounter [facility] course Narrative No data available for this section [facility] Discharge instructions* Attachments The following attachments cannot be sent through Care Everywhere. * Non-Epileptic Seizure: General Info (Niuean Welsh) [facility] No data available for this section [facility] Progress note No data available for this section [facility] Reason for referral (narrative)* Diagnostic Procedure Only (Routine) - Authorized Specialty Diagnoses / Procedures Referred By Contac t Referred To Contact BR IMAGING Diagnoses Bloody discharge from right nipple Procedures [facility] RIGHT DIAGNOSTIC MAMMOGRAPHY COMPUTER-AIDED DETCJ UNI Stone Alvarez, CURTAIN STRETCHER.PAY STATION COLLECTOR [address] [place] [address] Br Imaging [address] [place] [address] Referral ID Status Reason Start Date Expiration Date Visits Requested Visits Authorized [id number] Authorized Auto-Generat ed Referral 09/27/2023 10/26/2024 1 1 * Diagnostic Procedure Only (Routine) - Pending Review Specialty Diagnoses / Procedures Referred By Contac t Referred To Contact BR IMAGING Diagnoses Mastodynia Procedures US BREAST LTD LEFT US BREAST UNI REAL TIME WITH IMAGE LIMITED Stone Alvarez APRN.CNP [address] [id number] [facility] [address] [place] [address] Referral ID Status Reason Start Date Expiration Date Visits Requested Visits Authorized [id number] Pending Review Auto-Generat ed Referral 09/27/2023 10/26/2024 1 1 * Diagnostic Procedure Only (Routine) - Pending Review Specialty Diagnoses / Procedures Referred By Contac t Referred To Contact BR IMAGING Diagnoses Bloody discharge from right nipple Procedures US BREAST LTD RIGHT US BREAST UNI REAL TIME WITH IMAGE LIMITED Stone Alvarez APRN.PAY STATION COLLECTOR [address] [id number] [facility] [address] [place] [address] Referral ID Status Reason Start Date Expiration Date Visits Requested Visits Authorized [id number] Pending Review Auto-Generat ed Referral 09/27/2023 10/26/2024 1 1 [facility] Summary Purpose Family History No Family History [...] FoundNo Family History Records Found Advance Directives Documents on File Type Date Recorded Patient Seaming Inspector Expl anation Advance Directives and Living Will DNR Documentation Power of Project Hire 06/21/2021 2:20 PM [employer] POA Documents on File Type Date Recorded Patient Seaming Inspector Expl anation Advance Directive(s) 11/16/2018 2:28 PM Advance Directive(s) 11/15/2018 9:11 AM Advance Directive(s) 10/22/2018 10:59 AM Advance Directive(s) 01/23/2017 9:54 AM Advance Directive(s) 10/22/2015 9:05 PM Documents on File Type Date Recorded Patient Seaming Inspector Expl anation Advance Directive(s) 11/16/2018 2:28 PM Advance Directive(s) 11/15/2018 9:11 AM Advance Directive(s) 10/22/2018 10:59 AM Advance Directive(s) 01/23/2017 9:54 AM Advance Directive(s) 10/22/2015 9:05 PM Documents on File Type Date Recorded Patient Seaming Inspector Expl anation Living Will 12/03/2015 2:03 PM Healthcare Power of Project Hire 12/03/2015 2:03 PM Latest Code Status on File Code Status Date Activated Date Inactivated Comments Full Code 11/27/2015 11:09 PM 11/30/2015 4:54 PM Full Code 11/26/2015 9:58 PM 11/27/2015 9:00 PM Documents on File Type Date Recorded Patient Seaming Inspector Expl anation Advance Directive(s) 10/22/2018 10:59 AM [...] Documents on File Type Date Recorded Patient Seaming Inspector Expl anation Advance Directive(s) 10/22/2018 10:59 AM [...] Referral Specialty Diagnoses / Procedures Referred By Contac t Referred To Contact Breast Diseases Diagnoses Nipple discharge Procedures CONSULT TO BREAST CENTER OFFICE/OUTPATIENT [facility] 60-74 MINUTES Tristan Khan MD [address] [place] [address] Referral ID Status Reason Start Date Expiration Date Visits Requested Visits Authorized [id number] Authorized PCP Requested Referral 12/10/2021 03/10/2022 1 1 Specialty Diagnoses / Procedures Referred By Contac t Referred To Contact Diagnoses Family history of breast cancer Procedures CONSULT TO MEDICAL GENETICS - CANCER MEDICAL GENETICS COUNSELING EACH 30 MINUTES Tristan Khan MD [address] [place] [address] [address] Referral ID Status Reason Start Date Expiration Date Visits Requested Visits Authorized [id number] Authorized PCP Requested Referral Auto-Generate d Referral 06/23/2023 06/22/2024 1 1 Specialty Diagnoses / Procedures Referred By Contac t Referred To Contact Breast Diseases Diagnoses Family history of breast cancer Bloody discharge from right nipple Mastalgia Procedures CONSULT TO BREAST CENTER OFFICE/OUTPATIENT [facility] 60-74 MINUTES Tristan Khan MD [address] [place] [address] Referral ID Status Reason Start Date Expiration Date Visits Requested Visits Authorized [id number] Authorized PCP Requested Referral 06/23/2023 09/21/2023 1 [...] DATE CREATED AUTHOR AUTHOR'S ORGANIZ ATION 07/22/[address] [facility] DATE CREATED AUTHOR AUTHOR'S ORGANIZ ATION 10/03/2018 [facility] DATE CREATED AUTHOR AUTHOR'S ORGANIZ ATION 08/06/2019 [facility] DATE CREATED AUTHOR AUTHOR'S ORGANIZ ATION 12/30/2020 [facility] DATE CREATED AUTHOR AUTHOR'S ORGANIZ ATION 08/07/2021 [facility] DATE CREATED AUTHOR AUTHOR'S ORGANIZ ATION 09/15/2021 [facility] DATE CREATED AUTHOR AUTHOR'S ORGANIZ ATION 11/14/2021 [facility] DATE CREATED AUTHOR AUTHOR'S ORGANIZ ATION 05/04/2022 [facility] DATE CREATED AUTHOR AUTHOR'S ORGANIZ ATION 06/08/2022 [facility] DATE CREATED AUTHOR AUTHOR'S ORGANIZ ATION 07/13/2023 [facility] DATE CREATED AUTHOR AUTHOR'S ORGANIZ ATION 07/23/2023 [facility] DATE CREATED AUTHOR AUTHOR'S ORGANIZ ATION 08/24/2023 [facility] DATE CREATED AUTHOR AUTHOR'S ORGANIZ ATION 08/31/2023 [facility] DATE CREATED AUTHOR AUTHOR'S ORGANIZ ATION 09/07/2023 [facility] DATE CREATED AUTHOR AUTHOR'S ORGANIZ ATION 09/23/2023 [facility] ([place] DATE CREATED AUTHOR AUTHOR'S ORGANIZ ATION 09/28/2023 [facility] Reason for Visit (unrecogniz ed section and [...] buy and bill Preempt protocol [id number] Procedure -05831 chemodervate facial/trigem/cerv musc migraine Eva Shin, CURTAIN STRETCHER.PAY STATION COLLECTOR [address] [place] [address] Neur Headache Main [address] [place] [address] Referral ID Status Reason Start Date Expiration Date V isits Requested Visits Authorized [id number] Authorized 11/02/2021 11/01/2022 4 4 Reason Comments [...] buy and bill Preempt protocol [id number] Procedure -89116 chemodervate facial/trigem/cerv musc migraine Eva Shin, CURTAIN STRETCHER.PAY STATION COLLECTOR [address] [facility] [place] [address] Neur Headache Main [address] [place] [address] Referral ID Status Reason Start Date Expiration Date Visits Requested Visits Authorized [id number] Authorized OON Notification Letter 3 05/24/2024 5 5 Reason Comments Recheck Reason Onset Date Comments Psychiatric Problem 06/08/2023 Reason Comments Fibromyalgia Specialty Diagnoses / Procedures Referred By Hussein t Referred To Contact PAIN MANAGEMENT Diagnoses Encounter for general adult medical examination without abnormal findings Procedures NEW PATIENT VISIT LEVEL 1 OFFICE/OUTPATIENT NEW SF MDM 15-29 MINUTES OFFICE/OUTPATIENT NEW LOW MDM 30-44 MINUTES OFFICE/OUTPATIENT NEW MODERATE MDM 45-59 MINUTES OFFICE/OUTPATIENT NEW HIGH MDM 60-74 MINUTES Gordo Lafleur MD [address] [place] [address] Pain [facility] [address] [place] [address] Referral ID Status Reason Start Date Expiration Date V isits Requested Visits Authorized [id number] Closed OON/Self Pay Override 06/07/2023 07/23/2023 1 1 Reason Comments Results Genetic test results - negative Reason Comments Appointment Reason Comments Time change for September 25 procedure Reason Comments Pain Reason Comments Established Patient Reason Onset Date Comments Numbness 10/06/2023 Scheduled Active and Recently Administ ered Medications (unrecognized section and content) Care Teams (unrecognized sec tion and content) Riding Instructor Relationship Specialty Start Date End Date Provider, MD Rachelle PCP - General Family Medicine 07/06/21 Riding Instructor Relationship Specialty Start Date End Date ProviderRachelle MD PCP - General Family Medicine 07/06/21 Riding Instructor Relationship Specialty Start Date End Date ProviderRachelle MD PCP - General Family Medicine 07/06/21 Riding Instructor Relationship Specialty Start Date End Date Gaby Lerner MD [address] [facility] [address] [place] [address] PCP - General Internal Medicine 07/30/20 Gaby Lerner MD [address] [place] [address] Referring Internal Medicine 07/08/20 Ragini Lewis [address] [place] [address] Referring Orthopedics 08/26/21 Riding Instructor Relationship Specialty Start Date End Date Gaby Lerner MD [address] [place] [address] PCP - General Internal Medicine 07/30/20 Gaby Lerner MD [address] [address] [place] [address] Referring Internal Medicine 07/08/20 Ragini Lewis [address] [place] [address] Referring Orthopedics 08/26/21 Riding Instructor Relationship Specialty Start Date End Date Gaby Lerner MD [address] [place] [address] PCP - General Internal Medicine 07/30/20 Gaby Lerner MD [address] [place] [address] [place] [address] Referring Internal Medicine 07/08/20 Ragini Lewis [address] [place] [address] Referring Orthopedics 08/26/21 Riding Instructor Relationship Specialty Start Date End Date Gaby Lerner MD [address] [place] [address] PCP - General Internal Medicine 07/30/20 Gaby Lerner MD [address] [place] [address] [place] [address] Referring Internal Medicine 07/08/20 Ragini Lewis [address] [place] [address] Referring Orthopedics 08/26/21 Riding Instructor Relationship Specialty Start Date End Date Gaby Lerner MD [address] [place] [address] PCP - General Internal Medicine 07/30/20 Gaby Lerner MD [address] [place] [place] [address] Referring Internal Medicine 07/08/20 Ragini Lewis [address] [place] [address] Referring Orthopedics 08/26/21 Riding Instructor Relationship Specialty Start Date End Date Gaby Lerner MD [address] [facility] [place] [address] PCP - General Internal Medicine 07/30/20 Gaby Lerner MD [address] [place] [address] Referring Internal Medicine 07/08/20 Ragini Lewis [address] [place] [address] Referring Orthopedics 08/26/21 Riding Instructor Relationship Specialty Start Date End Date Gaby Lerner MD [address] [place] [address] PCP - General Internal Medicine 07/30/20 Gaby Lerner MD [address] [place] [address] Referring Internal Medicine 07/08/20 Ragini Lewis R [address] [place] [address] Referring Orthopedics 08/26/21 Riding Instructor Relationship Specialty Start Date End Date Gaby Lerner MD [address] [place] [address] PCP - General Internal Medicine 07/30/20 Gaby Lerner MD [address] [place] [address] (Fax) Referring Internal Medicine 07/08/20 Ragini Lewis R [address] [place] [address] Referring Orthopedics 08/26/21 Riding Instructor Relationship Specialty Start Date End Date Gaby Lerner MD [address] [place] [address] [place] [address] PCP - General Internal Medicine 07/30/20 Gaby Lerner MD [address] [place] [address] Referring Internal Medicine 07/08/20 Ragini Lewis [address] [place] [address] Referring Orthopedics 08/26/21 Riding Instructor Relationship Specialty Start Date End Date Gaby Lerner MD PCP - General Internal Medicine 07/30/20 Gaby Lerner MD Referring Internal Medicine 07/08/20 Ragini Lewis [address] [place] [address] Referring Orthopedics 08/26/21 Riding Instructor Relationship Specialty Start Date End Date Gaby Lerner MD PCP - General Internal Medicine 07/30/20 Gaby Lerner MD Referring Internal Medicine 07/08/20 Ragini Lewis [address] [place] [address] Referring Orthopedics 08/26/21 Phuong Yang DO [address] [place] [address] Internal Medicine 05/01/23 Riding Instructor Relationship Specialty Start Date End Date Gaby Lerner MD PCP - General Internal Medicine 07/30/20 Gaby Lerner MD Referring Internal Medicine 07/08/20 Ragini Lewis [address] [place] [address] Referring Orthopedics 08/26/21 Phuong Yang DO [address] [place] [address] Internal Medicine 05/01/23 Riding Instructor Relationship Specialty Start Date End Date Gaby Lerner MD PCP - General Internal Medicine 07/30/20 Gaby Lerner MD Referring Internal Medicine 07/08/20 Ragini Lewis [address] [place], [place] [address] Referring Orthopedics 08/26/21 Phuong Yang DO [address] [place] [address] Internal Medicine 05/01/23 Riding Instructor Relationship Specialty Start Date End Date Gaby Lerner MD PCP - General Internal Medicine 07/30/20 Gaby Lerner MD Referring Internal Medicine 07/08/20 Ragini Lewis [address] [place] [address] Referring Orthopedics 08/26/21 Phuong Yang DO [address] [place] [address] Internal Medicine 05/01/23 Riding Instructor Relationship Specialty Start Date End Date Gaby Lerner MD PCP - General Internal Medicine 07/30/20 Gaby Lerner MD Referring Internal Medicine 07/08/20 Ragini Lewis [address] [place] [address] Referring Orthopedics 08/26/21 Phuong Yang DO [address] [place] [address] Internal Medicine 05/01/23 Riding Instructor Relationship Specialty Start Date End Date Gaby Lerner MD PCP - General Internal Medicine 07/30/20 Gaby Lerner MD Referring Internal Medicine 07/08/20 Ragini Lewis [address] [place] [address] Referring Orthopedics 08/26/21 Phuong Yang DO [address] [place] [address] Internal Medicine 05/01/23 Riding Instructor Relationship Specialty Start Date End Date Gaby Lerner MD PCP - General Internal Medicine 07/30/20 Gaby Lerner MD Referring Internal Medicine 07/08/20 Ragini Lewis [address] [place] [address] Referring Orthopedics 08/26/21 Phuong Yang DO [address] [place] [address] Internal Medicine 05/01/23 Riding Instructor Relationship Specialty Start Date End Date Gaby Lerner MD PCP - General Internal Medicine 07/30/20 Gaby Lerner MD Referring Internal Medicine 07/08/20 Ragini Lewis [address] [place] [address] Referring Orthopedics 08/26/21 Phuong Yang DO [address] [facility] [address] [place] [address] Internal Medicine 05/01/23 Riding Instructor Relationship Specialty Start Date End Date Gaby Lerner MD PCP - General Internal Medicine 07/30/20 Gaby Lerner MD Referring Internal Medicine 07/08/20 DebbieRagini donohue Hector [address] [place] [address] Referring Orthopedics 08/26/21 ToyajermainePhuong DO [address] [place] [address] Internal Medicine 05/01/23 Riding Instructor Relationship Specialty Start Date End Date Melchor Gipson MD [address] [place] [address] PCP - General 07/20/18 Source Comments (unrecognize d section and content) In the event this informatio n is protected by the Federal Confidentiality of Alcohol and Drug Abuse Patient Records regulations: The Federal rules restrict any use of the information to criminally investigate or prosecute any alcohol or drug abuse patient.[facility] the event this information is protected by the Federal Confidentiality of Alcohol and Drug Abuse Patient Records regulations: The Federal rules restrict any use of the information to criminally investigate or prosecute any alcohol or drug abuse patient.[facility] the event this information is protected by the Federal Confidentiality of Alcohol and Drug Abuse Patient Records regulations: The Federal rules restrict any use of the information to criminally investigate or prosecute any alcohol or drug abuse patient.[facility] the event this information is protected by the Federal Confidentiality of Alcohol and Drug Abuse Patient Records regulations: The Federal rules restrict any use of the information to criminally investigate or prosecute any alcohol or drug abuse patient.[facility] the event this information is protected by the Federal Confidentiality of Alcohol and Drug Abuse Patient Records regulations: The Federal rules restrict any use of the information to criminally investigate or prosecute any alcohol or drug abuse patient.[facility] the event this information is protected by the Federal Confidentiality of Alcohol and Drug Abuse Patient Records regulations: The Federal rules restrict any use of the information to criminally investigate or prosecute any alcohol or drug abuse patient.[facility] the event this information is protected by the Federal Confidentiality of Alcohol and Drug Abuse Patient Records regulations: The Federal rules restrict any use of the information to criminally investigate or prosecute any alcohol or drug abuse patient.[facility] the event this information is protected by the Federal Confidentiality of Alcohol and Drug Abuse Patient Records regulations: The Federal rules restrict any use of the information to criminally investigate or prosecute any alcohol or drug abuse patient.[facility] the event this information is protected by the Federal Confidentiality of Alcohol and Drug Abuse Patient Records regulations: The Federal rules restrict any use of the information to criminally investigate or prosecute any alcohol or drug abuse patient.[facility] the event this information is protected by the Federal Confidentiality of Alcohol and Drug Abuse Patient Records regulations: The Federal rules restrict any use of the information to criminally investigate or prosecute any alcohol or drug abuse patient.[facility] the event this information is protected by the Federal Confidentiality of Alcohol and Drug Abuse Patient Records regulations: The Federal rules restrict any use of the information to criminally investigate or prosecute any alcohol or drug abuse patient.[facility] the event this information is protected by the Federal Confidentiality of Alcohol and Drug Abuse Patient Records regulations: The Federal rules restrict any use of the information to criminally investigate or prosecute any alcohol or drug abuse patient.[facility] the event this information is protected by the Federal Confidentiality of Alcohol and Drug Abuse Patient Records regulations: The Federal rules restrict any use of the information to criminally investigate or prosecute any alcohol or drug abuse patient.[facility] the event this information is protected by the Federal Confidentiality of Alcohol and Drug Abuse Patient Records regulations: The Federal rules restrict any use of the information to criminally investigate or prosecute any alcohol or drug abuse patient.[facility] the event this information is protected by the Federal Confidentiality of Alcohol and Drug Abuse Patient Records regulations: The Federal rules restrict any use of the information to criminally investigate or prosecute any alcohol or drug abuse patient.[facility] the event this information is protected by the Federal Confidentiality of Alcohol and Drug Abuse Patient Records regulations: The Federal rules restrict any use of the information to criminally investigate or prosecute any alcohol or drug abuse patient.[facility] the event this information is protected by the Federal Confidentiality of Alcohol and Drug Abuse Patient Records regulations: The Federal rules restrict any use of the information to criminally investigate or prosecute any alcohol or drug abuse patient.[facility] Columbus[facility] the event this information is protected by the Federal Confidentiality of Alcohol and Drug Abuse Patient Records regulations: The Federal rules restrict any use of the information to criminally investigate or prosecute any alcohol or drug abuse patient.[facility] Columbus[facility] the event this information is protected by the Federal Confidentiality of Alcohol and Drug Abuse Patient Records regulations: The Federal rules restrict any use of the information to criminally investigate or prosecute any alcohol or drug abuse patient.[facility] ColumbusIn the event this information is protected by the Federal Confidentiality of Alcohol and Drug Abuse Patient Records regulations: The Federal rules restrict any use of the information to criminally investigate or prosecute any alcohol or drug abuse patient.[facility] ColumbusIn the event this information is protected by the Federal Confidentiality of Alcohol and Drug Abuse Patient Records regulations: The Federal rules restrict any use of the information to criminally investigate or prosecute any alcohol or drug abuse patient.[facility] FOR RECORDS PERTAINING TO PATIENTS WHO ARE [...] BE BASED ON THE PRIMARY CLINICAL RECORDS. [facility]. provides no warranty or guarantee of the accuracy or completeness of information in this document.
[2023-10-06 22:39] LABS: Amphetamine Urine VISTA NEGATIVE (<1000 ng/mL); Barbiturate Urine VISTA NEGATIVE (< 200 ng/mL); Benzodiazepine Urine VISTA NEGATIVE (< 200 ng/mL); Cocaine Urine VISTA NEGATIVE (< 300 ng/mL); Ecstacy Urine VISTA NEGATIVE (< 500 ng/mL); Methadone Urine VISTA NEGATIVE (< 300 ng/mL); PCP Urine VISTA NEGATIVE (< 25 ng/mL); THC Urine VISTA NEGATIVE (< 50 ng/mL); Vista UDS pH Range 4
[2023-10-06 23:04] LABS: Hemoglobin A1c 4.9 % (3.8-5.6)
[2023-10-07] MEDS: Pantoprazole Sodium 40 MG Tablet PO ×2 (00:42→21:44)
[2023-10-07] MEDS: Atorvastatin Calcium 80 MG Tablet PO (00:42)
[2023-10-07] MEDS: Doxazosin 1 MG Tablet PO ×2 (00:42→21:43)
[2023-10-07] MEDS: busPIRone 15 MG TABLET PO ×4 (00:42→21:42)
[2023-10-07] MEDS: 0.9% Normal Saline (1000mL) 1,000 ML 70 ML IV (00:42)
[2023-10-07] MEDS: Gabapentin 600 MG Tablet PO ×4 (00:42→21:43)
[2023-10-07 01:39] LABS: Cholesterol 158 mg/dL (200); High Density Lipoprotein 42 mg/dL; Triglycerides 64 mg/dL; Very Low Density Lipoprotein 13 mg/dL (5-40)
[2023-10-07 02:00] VITALS: BP 106/64; PULSE 69; RESP 16; TEMP 36.6; O2SAT 99
[2023-10-07 03:22] VITALS: BMI 25.2
[2023-10-07 06:00] VITALS: BP 103/59; PULSE 68; RESP 16; TEMP 36.5; O2SAT 96
[2023-10-07] MEDS: Ibuprofen 600 MG Tablet PO (06:24)
[2023-10-07 08:58] VITALS: O2SAT 98
[2023-10-07 09:29] VITALS: BP 110/58; PULSE 72; RESP 16; TEMP 36.6; O2SAT 700
--- NOTE | 2023-10-07 09:30 | MRI_ITS ---
STUDY: MRI BRAIN WITHOUT CONTRAST REASON FOR EXAM: Female, 28 years old. Subacute CVA with Right hemiparesis. TECHNIQUE: Standardized multiplanar fat and water weighted pulse sequences were obtained. COMPARISON: Head CT dated October 04, 2023 FINDINGS: Normal size of the ventricles and extra-axial spaces for the patient''s age. Normal white matter tracts of the supratentorial brain. There is no evidence for recent intracranial ischemia or other cause of cytotoxic edema on diffusion weighted imaging (DWI). Normal T2* images of the brain without demonstrated susceptibility artifact. There is no demonstrated hemosiderin stain. There are no demyelinating plagues of the supratentorial brain, brainstem or cerebellum. There are no findings suspicious for multiple sclerosis (MS). No hydrocephalus or midline shift is present. No focal parenchymal edema is visualized. Normal bilateral basal ganglia. Normal thalami. There is no extra-axial fluid accumulation. Normal flow voids within the major intracranial circulation suggesting patency by spin echo criteria. Normal sella turcica, pituitary gland, infundibular stalk, optic chiasm and hypothalamus. Normal tectal plate and pineal gland. Normal midbrain, mansi and medulla. Normal cerebellum. Normal basal cisterns. Normal bilateral temporal bones. Normal bilateral internal auditory canals. No demonstrated orbital abnormality, within the constraints of a routine brain study. Normal visualized paranasal sinuses. Normal calvarium and skull base. Normal visualized soft tissue structures. Normal visualized upper cervical spine. MRI/Brain without Contrast IMPRESSION: Normal unenhanced MRI of the brain. Electronically Signed: Shant Moyer MD at 11:43 EDT ,
[2023-10-07] MEDS: Aspirin 81 MG TAB.CHEW PO (09:35)
[2023-10-07] MEDS: Potassium Chloride Oral Tablet 10 MEQ PO (09:35)
[2023-10-07] MEDS: LURASIDONE HCL 60 MG TABLET PO (09:35)
[2023-10-07] MEDS: Cholecalciferol (VIT D3) 25 MCG TABLET (1,000 UNITS) 50 MCG PO (09:36)
[2023-10-07] MEDS: diazePAM 5 MG Tablet 10 MG PO (10:01)
--- NOTE | 2023-10-07 11:13 | CON.PCM.NE_ITS ---
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 She reported that she was not able to function for the past 4-5 days before worsening of her symptom, being evaluated by Teleneurology for these symptoms Diagnosis: Right sided weakness - It sounds to be a functional right sided weakness, concerns for conversion disorder Plan: CTH with no acute bleed, CTA unremarkable, brain MRI was recommended and com pleted, no evidence of acute stroke, TTE revealed PFO which can be seen in 25% of people. No further stroke workup is recommended I personally attended this patient and spent a total time of 71 minutes evaluating this patient including clinical assessment, review of chart, medical history imaging, and determining appropriate treatment and workup. 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 She reported that she was not able to function for the past 4-5 days before worsening of her symptoms. She reported that she ambulates with wheelchair. She had R sided temporal headache. CTH was negative for acute bleed, CTA with no LVO or significant stenosis of the large vessels. Outside the window for lytics. She was admitted for further workup. Teleneurology was consulted [facility] Medical History Acute back pain with sciatica Anemia Asthma Back problem Breast lump Bronchitis Chronic bronchitis COPD (chronic obstructive pulmonary disease) CVA (cerebral vascular accident) Deafness in left ear Depression Frequent UTI GERD (gastroesophageal reflux disease) History of broken finger Hormone deficiency Hypoglycemia IBS (irritable bowel syndrome) Migraines Neuropathy Osteoarthritis Physical exam, pre-employment Preeclampsia Seizures Seizures Seizures Stomach ulcer SVT (supraventricular tachycardia) Tunnel vision Vision problems Home Medications cholecalciferol (vitamin D3) 25 mcg (1,000 unit) capsule 2 cap PO DAILY 11/22/19 [History Last Taken Unknown] albuterol sulfate 90 mcg/actuation aerosol inhaler 2 puff inhalation DAILY PRN PRN Sob &/Or Wheezing #8.5 grams 09/22/23 [Rx Last Taken 10/06/23] buspirone 15 mg tablet 15 mg PO TID anxiety 09/22/23 [History Last Taken 10/06/23 13:00] chlorzoxazone 500 mg tablet 500 mg PO TID muscle spasms #60 tabs 09/22/23 [Rx Last Taken Unknown] gabapentin 600 mg tablet 600 mg PO TID 09/22/23 [History Last Taken 10/06/23 13:00] hydroxyzine HCl 50 mg tablet 50 mg PO QHS PRN anxiety 09/22/23 [History Last Taken Unknown] lamotrigine 100 mg tablet (Lamictal) 100 mg PO DAILY mood stabilizer 09/22/23 [History Last Taken Unknown] lidocaine HCl 5 %-menthol 1 % topical patch 1 patch topical Q12H pain 09/22/23 [History Last Taken Unknown] lurasidone 60 mg tablet (Latuda) 60 mg PO DAILY 09/22/23 [History Last Taken 10/05/23 21:30] omeprazole 40 mg capsule,delayed release 40 mg PO QHS #90 caps 09/22/23 [Rx Last Taken Unknown] polyethylene glycol 3350 17 gram oral powder packet 17 g PO PRN PRN Constipation #30 ea 09/22/23 [Rx Last Taken Unknown] prazosin 1 mg capsule (Minipress) 1 mg PO QHS 09/22/23 [History Last Taken Unknown] prochlorperazine maleate 10 mg tablet (Compazine) 10 mg PO PRN PRN nausea #30 tabs 09/22/23 [Rx Last Taken Unknown] compress.stocking,knee,reg,lrg #2 ea 09/26/23 [Rx Last Taken Unknown] potassium chloride 10 mEq capsule,extended release 10 meq PO DAILY #30 caps 09/26/23 [Rx Last Taken 10/05/23 21:30] comp.stocking,thigh,short,smal #12 ea 10/03/23 [Rx Last Taken Unknown] ibuprofen 600 mg tablet 600 mg PO Q8H PRN fever or pain 10/06/23 [History Last Taken Unknown] Allergy/AdvReac Type Severity Reaction Status Date / Time adhesive tape Allergy Severe Rash Verified 10/06/23 17:11 latex Allergy Severe Rash Verified 10/06/23 17:11 benzonatate Allergy Rash Verified 10/06/23 17:11 [From Tessalon Perles] cephalexin [From Keflex] Allergy Hives Verified 10/06/23 17:11 clindamycin Allergy Anaphylaxis Verified 10/06/23 17:11 dicyclomine [From Bentyl] Allergy Itching Verified 10/06/23 17:11 meloxicam [From Mobic] Allergy Chest Verified 10/06/23 17:11 tightness metronidazole [From Flagyl] Allergy Itching Verified 10/06/23 17:11 nifedipine [From Procardia] Allergy Angioedema Verified 10/06/23 17:11 oseltamivir [From Tamiflu] Allergy Hives Verified 10/06/23 17:11 Penicillins Allergy Anaphylaxis Verified 10/06/23 17:11 prednisone Allergy Rash Verified 10/06/23 17:11 progesterone Allergy Hives Verified 10/06/23 17:11 Sulfa (Sulfonamide Allergy Hives Verified 10/06/23 17:11 Antibiotics) terbutaline [From Brethine] Allergy Angioedema Verified 10/06/23 17:11 ondansetron AdvReac Other Verified 10/06/23 17:11 [From Zofran (as hydrochloride)] Family History Mother Alcoholism Asthma Cancer Anxiety and depression Seizures Anesthesia complication Cervical cancer Colon cancer Diabetes Heart disease Hormone disorder Liver disease Mental disorder Ovarian cancer Parkinson disease Psychiatric care Respiratory care problem Seizures Epilepsy Severe allergy CVA (cerebral vascular accident) Suicide attempt Thyroid disorder Uterine cancer Father Anxiety and depression Alcoholism Seizures Diabetes Myocardial infarction, Onset Age: 39 Cervical cancer Colon cancer Heart disease Hypertension Hormone disorder Liver disease Mental disorder Parkinson disease Psychiatric care Respiratory care problem Suicide attempt CVA (cerebral vascular accident) Thyroid disorder Severe allergy Grandmother Cancer uterine Thyroid disorder COPD (chronic obstructive pulmonary disease) Hypertension Hyperlipemia Asthma Sister Cystic fibrosis Asthma Autoimmune disease Brother Cystic fibrosis Mental retardation Aunt Breast cancer Aunt Cancer ovarian Unknown Cancer lung Grandmother Breast cancer Aunt Breast cancer Surgical History H/O medial meniscus repair of right knee H/O: hysterectomy History of colonoscopy History of left oophorectomy History of repair of ACL History of repair of anterior cruciate ligament of left knee History of tubal ligation History of wisdom tooth extraction S/P ACL reconstruction S/P meniscectomy Social History adopted: Yes household members: spouse current occupational status: unemployed pets and animals: Yes pets and animals: dog(s) leisure activities: other Smoking Status: Current some day smoker tobacco type: cigarettes Tobacco: How many years used: 12 quit status: considering quitting alcohol intake: current alcohol intake frequency: a few times a month substance use type: former substance user, 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 diet: other what type of physical activity do you participate in: none frequency: daily jerrod/jewish: Moravian seatbelt use: always do you feel safe at home: No (pt states that she and her are homeless living with someone ) additional social history: pt states she and her do not feel safe in their living situation, and are working getting out of the living situation they are in this nurse relayed info to Zohreh Barnes NP Vital Signs Vital Signs Vital Signs: 10/06/23 17:14 10/06/23 18:46 10/06/23 18:40 Temperature 96.8 F L Temperature Source Temporal Pulse Rate 110 H 80 Respiratory Rate 18 21 H Respiratory Effort Respiratory Depth Respiratory Pattern Blood Pressure 105/81 H 117/75 Blood Pressure Mean 89 89 Blood Pressure Source Blood Pressure Position Blood Pressure Location Pulse Ox 98 99 Oxygen Delivery Method Room Air Room Air Room Air 10/06/23 18:45 10/06/23 18:55 10/06/23 19:00 Temperature Temperature Source Pulse Rate 74 80 86 Respiratory Rate 16 15 14 Respiratory Effort Respiratory Depth Respiratory Pattern Blood Pressure 116/74 117/72 110/70 Blood Pressure Mean 88 87 83 Blood Pressure Source Blood Pressure Position Blood Pressure Location Pulse Ox 99 100 100 Oxygen Delivery Method Room Air Room Air Room Air 10/06/23 19:15 10/06/23 19:56 10/06/23 19:30 Temperature Temperature Source Pulse Rate 82 72 79 Respiratory Rate 18 18 20 H Respiratory Effort Respiratory Depth Respiratory Pattern Blood Pressure 110/74 104/60 Blood Pressure Mean 86 74 Blood Pressure Source Blood Pressure Position Blood Pressure Location Pulse Ox 100 99 100 Oxygen Delivery Method Room Air Room Air Room Air 10/06/23 19:45 10/06/23 20:00 10/06/23 20:15 Temperature Temperature Source Pulse Rate 77 84 76 Respiratory Rate 21 H 18 20 H Respiratory Effort Respiratory Depth Respiratory Pattern Blood Pressure 108/94 H 100/66 104/76 Blood Pressure Mean 98 77 85 Blood Pressure Source Blood Pressure Position Blood Pressure Location Pulse Ox 100 98 97 Oxygen Delivery Method Room Air Room Air Room Air 10/06/23 20:30 10/06/23 20:45 10/06/23 20:45 Temperature 97.8 F Temperature Source Pulse Rate 79 78 79 Respiratory Rate 15 18 18 Respiratory Effort Respiratory Depth Respiratory Pattern Blood Pressure 105/75 104/54 L 104/54 L Blood Pressure Mean 85 70 70 Blood Pressure Source Blood Pressure Position Blood Pressure Location Pulse Ox 99 99 99 Oxygen Delivery Method Room Air Room Air 10/06/23 19:26 10/06/23 19:30 10/06/23 19:35 Temperature Temperature Source Pulse Rate 81 86 78 Respiratory Rate 26 H 23 H 20 H Respiratory Effort Respiratory Depth Respiratory Pattern Blood Pressure 104/60 99/73 Blood Pressure Mean 74 82 Blood Pressure Source Blood Pressure Position Blood Pressure Location Pulse Ox 100 100 100 Oxygen Delivery Method 10/06/23 19:40 10/06/23 19:45 10/06/23 19:50 Temperature Temperature Source Pulse Rate 75 81 Respiratory Rate 17 15 Respiratory Effort Respiratory Depth Respiratory Pattern Blood Pressure 102/69 108/94 H 107/71 Blood Pressure Mean 80 100 81 Blood Pressure Source Blood Pressure Position Blood Pressure Location Pulse Ox 99 100 Oxygen Delivery Method Room Air 10/06/23 19:55 10/06/23 20:00 10/06/23 20:05 Temperature Temperature Source Pulse Rate 74 82 77 Respiratory Rate 17 18 11 L Respiratory Effort Respiratory Depth Respiratory Pattern Blood Pressure 111/71 100/66 99/68 Blood Pressure Mean 79 77 78 Blood Pressure Source Blood Pressure Position Blood Pressure Location Pulse Ox 99 99 100 Oxygen Delivery Method 10/06/23 20:10 10/06/23 20:15 10/06/23 20:20 Temperature Temperature Source Pulse Rate 72 Respiratory Rate 17 Respiratory Effort Respiratory Depth Respiratory Pattern Blood Pressure 105/90 H 104/76 93/64 Blood Pressure Mean 96 86 74 Blood Pressure Source Blood Pressure Position Blood Pressure Location Pulse Ox 97 Oxygen Delivery Method 10/06/23 20:25 10/06/23 20:30 10/06/23 20:31 Temperature Temperature Source Pulse Rate 72 83 79 Respiratory Rate 17 14 18 Respiratory Effort Respiratory Depth Respiratory Pattern Blood Pressure 101/68 105/75 Blood Pressure Mean 79 84 Blood Pressure Source Blood Pressure Position Blood Pressure Location Pulse Ox 99 98 100 Oxygen Delivery Method Room Air 10/06/23 20:35 10/06/23 20:40 10/06/23 20:45 Temperature Temperature Source Pulse Rate 73 86 83 Respiratory Rate 16 16 16 Respiratory Effort Respiratory Depth Respiratory Pattern Blood Pressure 98/67 123/70 H 104/54 L Blood Pressure Mean 78 84 64 Blood Pressure Source Blood Pressure Position Blood Pressure Location Pulse Ox 99 99 99 Oxygen Delivery Method 10/06/23 20:50 10/06/23 20:55 10/06/23 21:00 Temperature Temperature Source Pulse Rate 79 84 75 Respiratory Rate 19 H 27 H 21 H Respiratory Effort Respiratory Depth Respiratory Pattern Blood Pressure 105/85 H 136/98 H 108/78 Blood Pressure Mean 93 109 88 Blood Pressure Source Blood Pressure Position Blood Pressure Location Pulse Ox 100 98 Oxygen Delivery Method Room Air Room Air 10/06/23 21:30 10/06/23 22:00 10/06/23 21:00 Temperature Temperature Source Pulse Rate 72 72 80 Respiratory Rate 19 H 17 18 Respiratory Effort Respiratory Depth Respiratory Pattern Blood Pressure 98/68 104/70 108/78 Blood Pressure Mean 78 81 87 Blood Pressure Source Blood Pressure Position Blood Pressure Location Pulse Ox 100 98 99 Oxygen Delivery Method Room Air Room Air 10/06/23 21:05 10/06/23 21:10 10/06/23 21:11 Temperature Temperature Source Pulse Rate 77 76 74 Respiratory Rate 19 H 15 23 H Respiratory Effort Respiratory Depth Respiratory Pattern Blood Pressure 102/74 81/48 L Blood Pressure Mean 84 59 Blood Pressure Source Blood Pressure Position Blood Pressure Location Pulse Ox 98 98 98 Oxygen Delivery Method 10/06/23 21:16 10/06/23 21:20 10/06/23 21:25 Temperature Temperature Source Pulse Rate 78 Respiratory Rate 20 H Respiratory Effort Respiratory Depth Respiratory Pattern Blood Pressure 105/80 105/76 100/88 H Blood Pressure Mean 88 86 94 Blood Pressure Source Blood Pressure Position Blood Pressure Location Pulse Ox 99 Oxygen Delivery Method 10/06/23 21:30 10/06/23 21:35 10/06/23 21:40 Temperature Temperature Source Pulse Rate 72 70 76 Respiratory Rate 24 H 19 H 19 H Respiratory Effort Respiratory Depth Respiratory Pattern Blood Pressure 98/68 108/61 103/75 Blood Pressure Mean 78 76 85 Blood Pressure Source Blood Pressure Position Blood Pressure Location Pulse Ox 98 98 100 Oxygen Delivery Method Room Air 10/06/23 21:45 10/06/23 21:50 10/06/23 21:55 Temperature Temperature Source Pulse Rate 69 73 Respiratory Rate 18 20 H Respiratory Effort Respiratory Depth Respiratory Pattern Blood Pressure 106/79 106/73 103/91 H Blood Pressure Mean 87 85 97 Blood Pressure Source Blood Pressure Position Blood Pressure Location Pulse Ox 99 98 Oxygen Delivery Method 10/06/23 22:00 10/06/23 22:05 10/06/23 22:10 Temperature 98.4 F Temperature Source Temporal Pulse Rate 72 68 74 Respiratory Rate 17 21 H 21 H Respiratory Effort Respiratory Depth Respiratory Pattern Blood Pressure 104/70 103/66 103/67 Blood Pressure Mean 80 78 79 Blood Pressure Source Blood Pressure Position Blood Pressure Location Pulse Ox 98 99 98 Oxygen Delivery Method Room Air 10/06/23 22:30 10/06/23 23:09 10/06/23 23:24 Temperature 98.2 F 98.1 F Temperature Source Oral Oral Pulse Rate 82 72 62 Respiratory Rate 16 16 16 Respiratory Effort Respiratory Depth Respiratory Pattern Blood Pressure 105/93 H 110/66 126/72 H Blood Pressure Mean 97 80 90 Blood Pressure Source Monitor Monitor Blood Pressure Position Semi-Fowlers Semi-Fowlers Blood Pressure Location Left Arm Left Arm Pulse Ox 97 100 100 Oxygen Delivery Method Room Air Room Air Room Air 10/06/23 23:39 10/06/23 23:54 10/07/23 02:00 Temperature 98.1 F 98.2 F 98 F Temperature Source Oral Oral Oral Pulse Rate 81 73 69 Respiratory Rate 16 16 16 Respiratory Effort Respiratory Depth Respiratory Pattern Blood Pressure 120/72 108/68 106/64 Blood Pressure Mean 88 81 78 Blood Pressure Source Monitor Monitor Monitor Blood Pressure Position Semi-Fowlers Semi-Fowlers Semi-Fowlers Blood Pressure Location Left Arm Left Arm Left Arm Pulse Ox 100 100 99 Oxygen Delivery Method Room Air Room Air Room Air 10/06/23 23:20 10/07/23 06:00 10/07/23 08:58 Temperature 97.7 F L Temperature Source Oral Pulse Rate 68 Respiratory Rate 16 Respiratory Effort Normal Respiratory Depth Normal Respiratory Pattern Normal Blood Pressure 103/59 L Blood Pressure Mean 73 Blood Pressure Source Monitor Blood Pressure Position Semi-Fowlers Blood Pressure Location Left Arm Pulse Ox 96 98 Oxygen Delivery Method Room Air Room Air Room Air 10/07/23 09:29 10/07/23 09:43 Temperature 97.8 F Temperature Source Temporal Pulse Rate 72 Respiratory Rate 16 Respiratory Effort Normal Respiratory Depth Normal Respiratory Pattern Normal Blood Pressure 110/58 L Blood Pressure Mean 75 Blood Pressure Source Monitor Blood Pressure Position Semi-Fowlers Blood Pressure Location Left Arm Pulse Ox 700 Oxygen Delivery Method Room Air Room Air Weight Weight: 71.1 kg Body Mass Index (BMI) 25.2 NIHSS NIHSS Nursing Documentation NIHSS Nursing Documentation: NIHSS: Ischemic Stroke/TIA Start: 10/06/23 23:09 Text: For PCU Patients: NIH and Neuro Check every 4 Status: Active hours and PRN Freq: [id number] Protocol: Activity Type Activity Date Activity User E-sign Co-sign Detail Recorded Client Recorded Date Recorded By Document 10/07/23 09:30 JS Desktop 10/07/23 09:35 JS 10/07/23 09:30 NIH Stroke Scale [NIHSS] A score of 0 is normal or asymptomatic . Total possible score is 42. Inpatient: RN or Physician to activate a stroke alert for onset of new stroke symptoms or with NIHSS increase >/= 3 points. Following change in neurological status, NIHSS will be performed per physician order or more frequently PRN. -1a. Level of Consciousness Alert; keenly responsive -1b. LOC Questions Answers BOTH questions correctly. -1c. LOC Commands Performs both tasks correctly . -2. Best Gaze Normal -3. Visual Partial hemianopia -4. Facial Palsy Partial paralysis ( total or near- total paralysis of lower face) -5a. Left Arm No drift; arm holds 90 (or 45 ) degrees for full 10 seconds -5b. Right Arm No movement -6a. Left Leg No drift; leg holds 30-degree position for full 5 seconds -6b. Right Leg No movement -7. Limb Ataxia Present in 2 limbs -8. Sensory Mild-to- moderate sensory loss; -9. Best Language Mild-to- moderate aphasia; -10. Dysarthria Normal -11. Extinction and Inattention Profound jhonatan- inattention or extinction to more than one modality; -Total 17 Query Text:A score of 0 is normal or asymptomatic. Total possible score is 42 . ED: Notify Physician for NIHSS increase by > / = 3 points. Inpatient: RN or Physician to activate a stroke alert for NIHSS increase of > / = 3 points. Coma Scale [Assess] -Eye Opening Spontaneous -Motor Obeys Commands -Verbal Oriented [Total] -Coma Scale Total 15 NIHSS: Ischemic Stroke/TIA Start: 10/06/23 23:09 Text: For ICU Patients: NIH sroke scale at Status: Complete presentation and every 2 hours or with change in RN caregiver Freq: [id number] Protocol: Activity Type Activity Date Activity User E-sign Co-sign Detail Recorded Client Recorded Date Recorded By Document 10/07/23 00:00 Inotremktop 10/07/23 00:19 GetGoing 10/07/23 00:00 NIH Stroke Scale [NIHSS] A score of 0 is normal or asymptomatic . Total possible score is 42. Inpatient: RN or Physician to activate a stroke alert for onset of new stroke symptoms or with NIHSS increase >/= 3 points. Following change in neurological status, NIHSS will be performed per physician order or more frequently PRN. -1a. Level of Consciousness Alert; keenly responsive -1b. LOC Questions Answers BOTH questions correctly. -1c. LOC Commands Performs both tasks correctly . -2. Best Gaze Normal -3. Visual No visual loss -4. Facial Palsy Partial paralysis ( total or near- total paralysis of lower face) -5a. Left Arm No drift; arm holds 90 (or 45 ) degrees for full 10 seconds -5b. Right Arm No movement -6a. Left Leg No drift; leg holds 30-degree position for full 5 seconds -6b. Right Leg No movement -7. Limb Ataxia Absent -8. Sensory Severe to total sensory loss; -9. Best Language Mild-to- moderate aphasia; -10. Dysarthria Normal -11. Extinction and Inattention Visual, tactile , auditory, spatial, or personal inattention -Total 14 Query Text:A score of 0 is normal or asymptomatic. Total possible score is 42 . ED: Notify Physician for NIHSS increase by > / = 3 points. Inpatient: RN or Physician to activate a stroke alert for NIHSS increase of > / = 3 points. Coma Scale [Assess] -Eye Opening Spontaneous -Motor Obeys Commands -Verbal Oriented [Total] -Coma Scale Total 15 NIHSS 1a. Level of Consciousness: Alert; keenly responsive 1b. LOC Questions: Answers neither question correctly. 1c. LOC Commands: Performs both tasks correctly. 2. Best Gaze: Normal 3. Visual: Complete hemianopia 4. Facial Palsy: Partial paralysis (total or near-total paralysis of lower face) 5a. Left Arm: No drift; arm holds 90 (or 45) degrees for full 10 seconds 5b. Right Arm: No movement 6a. Left Leg: No drift; leg holds 30-degree position for full 5 seconds 6b. Right Leg: No movement 7. Limb Ataxia: Absent 8. Sensory: Severe to total sensory loss; 9. Best Language: No aphasia; normal 10. Dysarthria: [id number] dysarthria; 11. Extinction and Inattention: No abnormality Total: 17 Physical Exam Narrative Awake and alert, follows commands, she has normal conversation but when she is asked a specific question (like to name an object) she starts to stutter with her words. RHH, complete R sided paralysis, no sensation on the R, right facial droop (not noticed when she talks, only when she is asked to smile) Lab / Micro Data 10/06/23 18:42 10/06/23 18:42 Labs: Laboratory Results - last 24 hr 10/06/23 18:38: POC Glucose 92 10/06/23 18:42: WBC 7.2, RBC 4.49, Hgb 13.5, Hct 39.2, MCV 87.3, MCH 30.1, MCHC 34.4, RDW Std Deviation 37.5, RDW Coeff of Jo 11.8, Plt Count 270, MPV 10.9, Immature Gran % (Auto) 0.100, Neut % (Auto) 51.0, Lymph % (Auto) 34.4, [place] % (Auto) 9.2, Eos % (Auto) 3.6, Baso % (Auto) 1.7 H, Absolute Neuts (auto) 3.7, Absolute Lymphs (auto) 2.47, Nucleated RBC % 0, PT 14.3, INR 1.1, APTT 29.6, Sodium 138, Potassium 3.8, Chloride 112 H, Carbon Dioxide 21.0, Anion Gap 5, BUN 15, Creatinine 0.72, Estim Creat Clear Calc 118.70, Est GFR (MDRD) Af Amer 122, Est GFR (MDRD) Non-Af 101, BUN/Creatinine Ratio 20.8 H, Glucose 94, Hemoglobin A1c 4.9, Calcium 8.6, Troponin I High Sens 3, Urine Opiates Screen NEGATIVE, Urine Methadone Screen NEGATIVE, Ur Barbiturates Screen NEGATIVE, Ur Phencyclidine Scrn NEGATIVE, Ur Amphetamines Screen NEGATIVE, MDMA (Ecstasy) Screen NEGATIVE, U Benzodiazepines Scrn NEGATIVE, Urine Cocaine Screen NEGATIVE, U Cannabinoids Screen NEGATIVE, Ur Drug Screen Comment 10/07/23 00:53: Triglycerides 64, Cholesterol 158, LDL Cholesterol 103, VLDL Cholesterol 13, HDL Cholesterol 42, Ethyl Alcohol 3.0 Imaging Radiology Impression Brain CT 10/06/23 18:41 IMPRESSION: Negative Brain CT without contrast. Electronically Signed: Tu Anglin MD at 18:55 EDT Reading Location ID and State: [facility] / [place] , Service support , ADDENDUM: 10/06/23 1904 IMPRESSION: Negative Brain CT without contrast. N.B. : The above Results were Read Back by Tu Anglin MD to Stef William MD, and understanding confirmed on 10/06/2023 18:56:57 (ET). Electronically Signed: Tu Anglin MD at 18:55 EDT Reading Location ID and State: [address] [place] [address] , Service support , Head/Neck CTA 10/06/23 18:42 IMPRESSION: Normal CTA Head and neck with contrast. Electronically Signed: Tu Anglin MD at 19:43 EDT Reading Location ID and State: [facility] / [place] , Service support , ADDENDUM: 10/06/23 1950 IMPRESSION: Normal CTA Head and neck with contrast. N.B. : The above Results were Read Back by Tu Anglin MD to Jairo Mari MD, and understanding confirmed on 10/06/2023 19:43:30 (ET). Electronically Signed: Tu Anglin MD at 19:43 EDT Reading Location ID and State: [facility] / [place] , Service support , Chest X-Ray 10/06/23 19:35 IMPRESSION: Normal x-ray examination of the chest. Electronically Signed: Tu Anglin MD at 20:19 EDT , Active Medications Active Medications Active Medications: Current Medications Generic Name Dose Route Start Last Admin Trade Name Freq PRN Reason Stop Dose Admin Albuterol Sulfate 2.5 mg 10/06/23 23:09 Albuterol 2.5 Mg/3 Ml Vial.Neb. INHALATION Q4H PRN PRN Sob &/Or Wheezing Aspirin 81 mg 10/07/23 08:00 10/07/23 09:35 Aspirin 81 Mg Tab.Chew PO 81 mg BREAKFAST AYESHA Administration Atorvastatin Calcium 80 mg 10/06/23 23:09 10/07/23 00:42 Atorvastatin Calcium 80 Mg Tablet PO 80 mg QHS AYESHA Administration Buspirone HCl 15 mg 10/07/23 08:00 10/07/23 09:35 Buspirone 15 Mg Tablet PO 15 mg 0800,1400,2200 AYESHA Administration Chlorzoxazone 500 mg 10/07/23 14:00 Chlorzoxazone 500 Mg Tablet PO TID AYESHA Cholecalciferol 50 mcg 10/07/23 10:00 10/07/23 09:36 Cholecalciferol (Vit D3) 25 Mcg Tablet (1,000 Units) PO 50 mcg DAILY AYESHA Administration Doxazosin Mesylate 1 mg 10/06/23 23:09 10/07/23 00:42 Doxazosin 1 Mg Tablet PO 1 mg QHS AYESHA Administration Gabapentin 600 mg 10/07/23 08:00 10/07/23 09:35 Gabapentin 600 Mg Tablet PO 600 mg 0800,1400,2200 AYESHA Administration Hydroxyzine Pamoate 50 mg 10/06/23 23:09 Hydroxyzine Yasmeen 25 Mg Capsule PO QHS PRN anxiety Sodium Chloride 1,000 mls @ 70 mls/hr 10/06/23 23:09 10/07/23 10:08 IV 0 mls/hr .[id number] AYESHA Infusion Sodium Chloride 250 mls @ 15 mls/hr 10/06/23 23:56 IV .[id number] PRN Additional IVPB Infusion Sodium Chloride 250 mls @ 15 mls/hr 10/06/23 23:56 IV .[id number] PRN Saline Flush Ibuprofen 600 mg 10/06/23 23:09 10/07/23 06:24 Ibuprofen 600 Mg Tablet PO 600 mg Q8H PRN PRN Administration fever or pain 1-10 Lamotrigine 100 mg 10/07/23 22:00 Lamotrigine 100 Mg Tablet PO 2200 AYESHA Lidocaine 1 patch 10/07/23 10:00 Lidocaine 5% Patch TOPICAL DAILY AYESHA Pantoprazole Sodium 40 mg 10/06/23 23:09 10/07/23 00:42 Pantoprazole Sodium 40 Mg Tablet PO 40 mg QHS AYESHA Administration Polyethylene Glycol 17 gm 10/06/23 23:09 Polyethylene Glycol 3350 17 Gm Packet PO DAILY PRN PRN Constipation Potassium Chloride 10 meq 10/07/23 08:00 10/07/23 09:35 Potassium Chloride Oral Tablet 10 Meq PO 10 meq DAILYCM AYESHA Administration Sodium Chloride 10 - 40 ml 10/06/23 23:56 0.9% Saline Lock 10 Ml Syringe IV UD PRN SALINE FLUSH
--- NOTE | 2023-10-07 12:50 | CASEMGMT ---
[facility] assessment and Admission Assessment Face to Face with patient for initial transition planning/care coordination assessment, including social determinants of health assessment.? This comic writer introduced self and role at [facility]. Patient lying in bed, alert and oriented. Patient willing to participate in assessment and is able to answer all questions appropriately.? Care providers, pharmacy, and demographics verified. 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 PCP: Zohreh Barnes NP Specialists: patient reports to have many, and show this comic writer the patient's phone with many physician names, numbers and from appointments. Reports to be switching most providers to the [facility]. Neurologist for migraines/Botox at the [facility] pulmonary (Sima Reddy) cardiology (Dr. Antonio Navarrete) pain management (Dr. Lafleur) gastroenterology (Phuong Sorto) general surgery (Aileen Marie) neurologist at [facility], Dr. Guerrero, appointment reportedly on 10.19.23 breast specialist Willow Martinez) psychiatry, the counseling center Preferred Pharmacy: [facility] in [facility] Insurance: [facility] plan Medicaid Prescription Benefit:?yes Living Will/HPOA: has advanced directives on file, but patient reports desire to change these as directives indicate patient's ex- as the decision maker. LNOK: patient reports has been since August 2021 to Lars Humphries Junior. Denies any type of domestic violence or safety concerns in this relationship. Patient does have four children, who all live with other family. Patient does not have custody of her children. Living Arrangements: patient reports was living with kj-zekfove-rv-law and that nbjuwmk-sq-jcq's significant other since February 2023. Reports not allowed to return to this home because the zj-ayxnqps-yu-law is mad at the patient for setting a boundary with the ki-mmpnurk-aa-law. 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 Working at [employer] in [place]. Patient reports has been attempting to seek out Social Security disability since 2020 on the basis of both medical and mental health issues. Reports has been denied. 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 Transportation: patient uses insurance for transportation to appointments. Sikh/spiritual beliefs: patient reports converted into the Quaker anabaptism fully in July 2022. Patient reports always wanted to be of the Quaker anabaptism since childhood, but really became interested when serving in the in [place] from 2011 to 2014. Patient reports to observe [place], does not eat pork. Patient wearing traditional head covering during this comic writer's visit. Noted in the chart that patient would like a female presents for any male providers. Patient reports her is not Quaker, but and Odonist which the patient describes is one that follows Norse and [place]and[place] gods. DME: patient reports to have a wheelchair to use when out and about, shower chair still in the box, a bedside commode and hand brace. Reports supposed to be going to [place] to get a foot brace. Reports to have a cane but the cane has disappeared. Patient reports has not been allowed to use any of her medical equipment while living at lsqcgmv-zb-kjw's home. HHC: reports has not been able to secure any type of home healthcare reports was denied by the [place] Medicaid waiver. senior living facility: patient reports has been at the [facility] from April to June 2023. Community Resources: patient reports to be on the [facility] housing waiting list. Reports is supposed to get [employer] voucher on Monday10.10.23. Behavioral Health History:?patient reports to have diagnoses of depression, anxiety, schizoaffective disorder, and chronic PTSD. Medical record indicates patient does have a history of suicidal ideations and has been hospitalized on inpatient psychiatric units in the past. Last suicidal ideation, via the [facility] emergency room was in December 2022. Patient reports to see Sarahi Hi, nurse practitioner and therapist Epi Blanca at the counseling center. Patient reports history of substance use. History of THC. 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 Summary/observation: reports social work presentation to the room, patient fully engaged in conversation, easily saying all words, and texting on the phone. Patient observed mostly be using left side, but was gripping phone with the right hand. This comic writer observed when teleneurology dialed in, that patient's communication suddenly became more stilted, with patient expressing difficulty with particular words. Earlier in the conversation patient was easily able to say words such as April, June, and 2022. Patient even used medical terminology with this comic writer, without hesitation, but when neurologist asked the patient for the current month, patient expressed that she would not be able to say this but would likely be able to see the number. Patient then did not even see the number but held up three fingers. After the tell neurology was over, and this comic writer continued conversation with the patient, the patient once again started communicating and easy and spontaneous pattern. Patient goals: Patient wishes to go to [facility] facility time of discharge. Reports inability to care for herself, reports patient's is not in a position to take care of the patient at this time, due to lack of housing. Patient reports physical and occupational therapy are both recommending patient to have skilled therapy at time of discharge. Disposition Plan:?social work will continue to follow -OLIVIA Muro MSW *This note was generated with [employer] dictation software. It may contain incorrect words, spelling, and punctuation that were not noted in review of the chart prior to signing*
--- NOTE | 2023-10-07 13:03 | CON.PCM.NE_ITS ---
Assessment and Plan: Neuro Assessment/Plan FERNANDO GUIDO is a 28 F with a past medical history of , being evaluated by Teleneurology for Diagnosis: Plan: [place] [facility] for the following reasons: I personally attended this patient and spent a total time of minutes evaluating this patient including clinical assessment, review of chart, medical history imaging, and determining appropriate treatment and workup. HPI Consult Data Date of Consult: 10/07/23 HPI Narrative HPI Narrative: FERNANDO GUIDO, is a 28 F with a reported hx of stroke and residual R side Chief Complaint: Dizziness with Right Facial Droop and Right Hemiparesis. HPI Narrative FERNANDO GUIDO, is a 28 F with a past medical history of tobacco abuse; with previously diagnosed Asthma/COPD, pseudoseizures, preeclampsia, neuropathy, deaf in Left ear, migraine headaches, Bipolar disorder, IBS, GERD, history of back pain with sciatica and history of CVA (12/2022); still on estradiol patch with recent discharge from an ECF ~1 month ago who presents to [facility] complaining of dizziness with Right facial droop and Right hemip aresis. Ms. Guido reports her symptoms began approximately 3 days ago when she noticed the abrupt-onset of Right-sided weakness when she began to have difficulty walking up a flight of steps. She then contacted her neurologist around 11:00 AM today who instructed her to come in to the ER for further evaluation and treatment. She also admits to headache, blurriness of the vision in her Left eye with the ER provider noting a poor recollection of recent events and significant irritability. She denies associated fever, chills, nausea or vomiting. In the ER she was diagnosed with a suspected subacute CVA causing Right-sided weakness with a CTA of the head and neck that was unremarkable for acute or chronic pathologic changes and she was then admitted to the PCU for ongoing care for a stay that is expected to be greater than 48 hours. [facility] Medical History Acute back pain with sciatica Anemia Asthma Back problem Breast lump Bronchitis Chronic bronchitis COPD (chronic obstructive pulmonary disease) CVA (cerebral vascular accident) Deafness in left ear Depression Frequent UTI GERD (gastroesophageal reflux disease) History of broken finger Hormone deficiency Hypoglycemia IBS (irritable bowel syndrome) Migraines Neuropathy Osteoarthritis Physical exam, pre-employment Preeclampsia Seizures Seizures Seizures Stomach ulcer SVT (supraventricular tachycardia) Tunnel vision Vision problems Home Medications cholecalciferol (vitamin D3) 25 mcg (1,000 unit) capsule 2 cap PO DAILY 11/22/19 [History Last Taken Unknown] albuterol sulfate 90 mcg/actuation aerosol inhaler 2 puff inhalation DAILY PRN PRN Sob &/Or Wheezing #8.5 grams 09/22/23 [Rx Last Taken 10/06/23] buspirone 15 mg tablet 15 mg PO TID anxiety 09/22/23 [History Last Taken 10/06/23 13:00] chlorzoxazone 500 mg tablet 500 mg PO TID muscle spasms #60 tabs 09/22/23 [Rx Last Taken Unknown] gabapentin 600 mg tablet 600 mg PO TID 09/22/23 [History Last Taken 10/06/23 13:00] hydroxyzine HCl 50 mg tablet 50 mg PO QHS PRN anxiety 09/22/23 [History Last Taken Unknown] lamotrigine 100 mg tablet (Lamictal) 100 mg PO DAILY mood stabilizer 09/22/23 [History Last Taken Unknown] lidocaine HCl 5 %-menthol 1 % topical patch 1 patch topical Q12H pain 09/22/23 [History Last Taken Unknown] lurasidone 60 mg tablet (Latuda) 60 mg PO DAILY 09/22/23 [History Last Taken 21:30] omeprazole 40 mg capsule,delayed release 40 mg PO QHS #90 caps 09/22/23 [Rx Last Taken Unknown] polyethylene glycol 3350 17 gram oral powder packet 17 g PO PRN PRN Constipation #30 ea 09/22/23 [Rx Last Taken Unknown] prazosin 1 mg capsule (Minipress) 1 mg PO QHS 09/22/23 [History Last Taken Unknown] prochlorperazine maleate 10 mg tablet (Compazine) 10 mg PO PRN PRN nausea #30 tabs 09/22/23 [Rx Last Taken Unknown] compress.stocking,knee,reg,lrg #2 ea 09/26/23 [Rx Last Taken Unknown] potassium chloride 10 mEq capsule,extended release 10 meq PO DAILY #30 caps 09/26/23 [Rx Last Taken 10/05/23 21:30] comp.stocking,thigh,short,smal #12 ea 10/03/23 [Rx Last Taken Unknown] ibuprofen 600 mg tablet 600 mg PO Q8H PRN fever or pain 10/06/23 [History Last Taken Unknown] Allergy/AdvReac Type Severity Reaction Status Date / Time adhesive tape Allergy Severe Rash Verified 10/06/23 17:11 latex Allergy Severe Rash Verified 10/06/23 17:11 benzonatate Allergy Rash Verified 10/06/23 17:11 [From Tessalon Perles] cephalexin [From Keflex] Allergy Hives Verified 10/06/23 17:11 clindamycin Allergy Anaphylaxis Verified 10/06/23 17:11 dicyclomine [From Bentyl] Allergy Itching Verified 10/06/23 17:11 meloxicam [From Mobic] Allergy Chest Verified 10/06/23 17:11 tightness metronidazole [From Flagyl] Allergy Itching Verified 10/06/23 17:11 nifedipine [From Procardia] Allergy Angioedema Verified 10/06/23 17:11 oseltamivir [From Tamiflu] Allergy Hives Verified 10/06/23 17:11 Penicillins Allergy Anaphylaxis Verified 10/06/23 17:11 prednisone Allergy Rash Verified 10/06/23 17:11 progesterone Allergy Hives Verified 10/06/23 17:11 Sulfa (Sulfonamide Allergy Hives Verified 10/06/23 17:11 Antibiotics) terbutaline [From Brethine] Allergy Angioedema Verified 10/06/23 17:11 ondansetron AdvReac Other Verified 10/06/23 17:11 [From Zofran (as hydrochloride)] Family History Mother Alcoholism Asthma Cancer Anxiety and depression Seizures Anesthesia complication Cervical cancer Colon cancer Diabetes Heart disease Hormone disorder Liver disease Mental disorder Ovarian cancer Parkinson disease Psychiatric care Respiratory care problem Seizures Epilepsy Severe allergy CVA (cerebral vascular accident) Suicide attempt Thyroid disorder Uterine cancer Father Anxiety and depression Alcoholism Seizures Diabetes Myocardial infarction, Onset Age: 39 Cervical cancer Colon cancer Heart disease Hypertension Hormone disorder Liver disease Mental disorder Parkinson disease Psychiatric care Respiratory care problem Suicide attempt CVA (cerebral vascular accident) Thyroid disorder Severe allergy Grandmother Cancer uterine Thyroid disorder COPD (chronic obstructive pulmonary disease) Hypertension Hyperlipemia Asthma Sister Cystic fibrosis Asthma Autoimmune disease Brother Cystic fibrosis Mental retardation Aunt Breast cancer Aunt Cancer ovarian Unknown Cancer lung Grandmother Breast cancer Aunt Breast cancer Surgical History H/O medial meniscus repair of right knee H/O: hysterectomy History of colonoscopy History of left oophorectomy History of repair of ACL History of repair of anterior cruciate ligament of left knee History of tubal ligation History of wisdom tooth extraction S/P ACL reconstruction S/P meniscectomy Social History adopted: Yes household members: spouse current occupational status: unemployed pets and animals: Yes pets and animals: dog(s) leisure activities: other Smoking Status: Current some day smoker tobacco type: cigarettes Tobacco: How many years used: 12 quit status: considering quitting alcohol intake: current alcohol intake frequency: a few times a month substance use type: former substance user, 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 diet: other what type of physical activity do you participate in: none frequency: daily jerrod/yarsani: Bahai seatbelt use: always do you feel safe at home: No (pt states that she and her are homeless living with someone ) additional social history: pt states she and her do not feel safe in their living situation, and are working getting out of the living situation they are in this nurse relayed info to Zohreh Barnes NP Vital Signs Vital Signs Vital Signs: 10/06/23 17:14 10/06/23 18:46 10/06/23 18:40 Temperature 96.8 F L Temperature Source Temporal Pulse Rate 110 H 80 Respiratory Rate 18 21 H Respiratory Effort Respiratory Depth Respiratory Pattern Blood Pressure 105/81 H 117/75 Blood Pressure Mean 89 89 Blood Pressure Source Blood Pressure Position Blood Pressure Location Pulse Ox 98 99 Oxygen Delivery Method Room Air Room Air Room Air 10/06/23 18:45 10/06/23 18:55 10/06/23 19:00 Temperature Temperature Source Pulse Rate 74 80 86 Respiratory Rate 16 15 14 Respiratory Effort Respiratory Depth Respiratory Pattern Blood Pressure 116/74 117/72 110/70 Blood Pressure Mean 88 87 83 Blood Pressure Source Blood Pressure Position Blood Pressure Location Pulse Ox 99 100 100 Oxygen Delivery Method Room Air Room Air Room Air 10/06/23 19:15 10/06/23 19:56 10/06/23 19:30 Temperature Temperature Source Pulse Rate 82 72 79 Respiratory Rate 18 18 20 H Respiratory Effort Respiratory Depth Respiratory Pattern Blood Pressure 110/74 104/60 Blood Pressure Mean 86 74 Blood Pressure Source Blood Pressure Position Blood Pressure Location Pulse Ox 100 99 100 Oxygen Delivery Method Room Air Room Air Room Air 10/06/23 19:45 10/06/23 20:00 10/06/23 20:15 Temperature Temperature Source Pulse Rate 77 84 76 Respiratory Rate 21 H 18 20 H Respiratory Effort Respiratory Depth Respiratory Pattern Blood Pressure 108/94 H 100/66 104/76 Blood Pressure Mean 98 77 85 Blood Pressure Source Blood Pressure Position Blood Pressure Location Pulse Ox 100 98 97 Oxygen Delivery Method Room Air Room Air Room Air 10/06/23 20:30 10/06/23 20:45 10/06/23 20:45 Temperature 97.8 F Temperature Source Pulse Rate 79 78 79 Respiratory Rate 15 18 18 Respiratory Effort Respiratory Depth Respiratory Pattern Blood Pressure 105/75 104/54 L 104/54 L Blood Pressure Mean 85 70 70 Blood Pressure Source Blood Pressure Position Blood Pressure Location Pulse Ox 99 99 99 Oxygen Delivery Method Room Air Room Air 10/06/23 19:26 10/06/23 19:30 10/06/23 19:35 Temperature Temperature Source Pulse Rate 81 86 78 Respiratory Rate 26 H 23 H 20 H Respiratory Effort Respiratory Depth Respiratory Pattern Blood Pressure 104/60 99/73 Blood Pressure Mean 74 82 Blood Pressure Source Blood Pressure Position Blood Pressure Location Pulse Ox 100 100 100 Oxygen Delivery Method 10/06/23 19:40 10/06/23 19:45 10/06/23 19:50 Temperature Temperature Source Pulse Rate 75 81 Respiratory Rate 17 15 Respiratory Effort Respiratory Depth Respiratory Pattern Blood Pressure 102/69 108/94 H 107/71 Blood Pressure Mean 80 100 81 Blood Pressure Source Blood Pressure Position Blood Pressure Location Pulse Ox 99 100 Oxygen Delivery Method Room Air 10/06/23 19:55 10/06/23 20:00 10/06/23 20:05 Temperature Temperature Source Pulse Rate 74 82 77 Respiratory Rate 17 18 11 L Respiratory Effort Respiratory Depth Respiratory Pattern Blood Pressure 111/71 100/66 99/68 Blood Pressure Mean 79 77 78 Blood Pressure Source Blood Pressure Position Blood Pressure Location Pulse Ox 99 99 100 Oxygen Delivery Method 10/06/23 20:10 10/06/23 20:15 10/06/23 20:20 Temperature Temperature Source Pulse Rate 72 Respiratory Rate 17 Respiratory Effort Respiratory Depth Respiratory Pattern Blood Pressure 105/90 H 104/76 93/64 Blood Pressure Mean 96 86 74 Blood Pressure Source Blood Pressure Position Blood Pressure Location Pulse Ox 97 Oxygen Delivery Method 10/06/23 20:25 10/06/23 20:30 10/06/23 20:31 Temperature Temperature Source Pulse Rate 72 83 79 Respiratory Rate 17 14 18 Respiratory Effort Respiratory Depth Respiratory Pattern Blood Pressure 101/68 105/75 Blood Pressure Mean 79 84 Blood Pressure Source Blood Pressure Position Blood Pressure Location Pulse Ox 99 98 100 Oxygen Delivery Method Room Air 10/06/23 20:35 10/06/23 20:40 10/06/23 20:45 Temperature Temperature Source Pulse Rate 73 86 83 Respiratory Rate 16 16 16 Respiratory Effort Respiratory Depth Respiratory Pattern Blood Pressure 98/67 123/70 H 104/54 L Blood Pressure Mean 78 84 64 Blood Pressure Source Blood Pressure Position Blood Pressure Location Pulse Ox 99 99 99 Oxygen Delivery Method 10/06/23 20:50 10/06/23 20:55 10/06/23 21:00 Temperature Temperature Source Pulse Rate 79 84 75 Respiratory Rate 19 H 27 H 21 H Respiratory Effort Respiratory Depth Respiratory Pattern Blood Pressure 105/85 H 136/98 H 108/78 Blood Pressure Mean 93 109 88 Blood Pressure Source Blood Pressure Position Blood Pressure Location Pulse Ox 100 98 Oxygen Delivery Method Room Air Room Air 10/06/23 21:30 10/06/23 22:00 10/06/23 21:00 Temperature Temperature Source Pulse Rate 72 72 80 Respiratory Rate 19 H 17 18 Respiratory Effort Respiratory Depth Respiratory Pattern Blood Pressure 98/68 104/70 108/78 Blood Pressure Mean 78 81 87 Blood Pressure Source Blood Pressure Position Blood Pressure Location Pulse Ox 100 98 99 Oxygen Delivery Method Room Air Room Air 10/06/23 21:05 10/06/23 21:10 10/06/23 21:11 Temperature Temperature Source Pulse Rate 77 76 74 Respiratory Rate 19 H 15 23 H Respiratory Effort Respiratory Depth Respiratory Pattern Blood Pressure 102/74 81/48 L Blood Pressure Mean 84 59 Blood Pressure Source Blood Pressure Position Blood Pressure Location Pulse Ox 98 98 98 Oxygen Delivery Method 10/06/23 21:16 10/06/23 21:20 10/06/23 21:25 Temperature Temperature Source Pulse Rate 78 Respiratory Rate 20 H Respiratory Effort Respiratory Depth Respiratory Pattern Blood Pressure 105/80 105/76 100/88 H Blood Pressure Mean 88 86 94 Blood Pressure Source Blood Pressure Position Blood Pressure Location Pulse Ox 99 Oxygen Delivery Method 10/06/23 21:30 10/06/23 21:35 10/06/23 21:40 Temperature Temperature Source Pulse Rate 72 70 76 Respiratory Rate 24 H 19 H 19 H Respiratory Effort Respiratory Depth Respiratory Pattern Blood Pressure 98/68 108/61 103/75 Blood Pressure Mean 78 76 85 Blood Pressure Source Blood Pressure Position Blood Pressure Location Pulse Ox 98 98 100 Oxygen Delivery Method Room Air 10/06/23 21:45 10/06/23 21:50 10/06/23 21:55 Temperature Temperature Source Pulse Rate 69 73 Respiratory Rate 18 20 H Respiratory Effort Respiratory Depth Respiratory Pattern Blood Pressure 106/79 106/73 103/91 H Blood Pressure Mean 87 85 97 Blood Pressure Source Blood Pressure Position Blood Pressure Location Pulse Ox 99 98 Oxygen Delivery Method 10/06/23 22:00 10/06/23 22:05 10/06/23 22:10 Temperature 98.4 F Temperature Source Temporal Pulse Rate 72 68 74 Respiratory Rate 17 21 H 21 H Respiratory Effort Respiratory Depth Respiratory Pattern Blood Pressure 104/70 103/66 103/67 Blood Pressure Mean 80 78 79 Blood Pressure Source Blood Pressure Position Blood Pressure Location Pulse Ox 98 99 98 Oxygen Delivery Method Room Air 10/06/23 22:30 10/06/23 23:09 10/06/23 23:24 Temperature 98.2 F 98.1 F Temperature Source Oral Oral Pulse Rate 82 72 62 Respiratory Rate 16 16 16 Respiratory Effort Respiratory Depth Respiratory Pattern Blood Pressure 105/93 H 110/66 126/72 H Blood Pressure Mean 97 80 90 Blood Pressure Source Monitor Monitor Blood Pressure Position Semi-Fowlers Semi-Fowlers Blood Pressure Location Left Arm Left Arm Pulse Ox 97 100 100 Oxygen Delivery Method Room Air Room Air Room Air 10/06/23 23:39 10/06/23 23:54 10/07/23 02:00 Temperature 98.1 F 98.2 F 98 F Temperature Source Oral Oral Oral Pulse Rate 81 73 69 Respiratory Rate 16 16 16 Respiratory Effort Respiratory Depth Respiratory Pattern Blood Pressure 120/72 108/68 106/64 Blood Pressure Mean 88 81 78 Blood Pressure Source Monitor Monitor Monitor Blood Pressure Position Semi-Fowlers Semi-Fowlers Semi-Fowlers Blood Pressure Location Left Arm Left Arm Left Arm Pulse Ox 100 100 99 Oxygen Delivery Method Room Air Room Air Room Air 10/06/23 23:20 10/07/23 06:00 10/07/23 08:58 Temperature 97.7 F L Temperature Source Oral Pulse Rate 68 Respiratory Rate 16 Respiratory Effort Normal Respiratory Depth Normal Respiratory Pattern Normal Blood Pressure 103/59 L Blood Pressure Mean 73 Blood Pressure Source Monitor Blood Pressure Position Semi-Fowlers Blood Pressure Location Left Arm Pulse Ox 96 98 Oxygen Delivery Method Room Air Room Air Room Air 10/07/23 09:29 10/07/23 09:43 Temperature 97.8 F Temperature Source Temporal Pulse Rate 72 Respiratory Rate 16 Respiratory Effort Normal Respiratory Depth Normal Respiratory Pattern Normal Blood Pressure 110/58 L Blood Pressure Mean 75 Blood Pressure Source Monitor Blood Pressure Position Semi-Fowlers Blood Pressure Location Left Arm Pulse Ox 700 Oxygen Delivery Method Room Air Room Air Weight Weight: 71.1 kg Body Mass Index (BMI) 25.2 EEG Results Procedure Details EEG Procedure Details: FERNANDO GUIDO is a 28 year old F with a past medical history of , who presents for evaluation of Electroencephalogram on DATE at TIME NIHSS NIHSS Nursing Documentation NIHSS Nursing Documentation: NIHSS: Ischemic Stroke/TIA Start: 10/06/23 23:09 Text: For PCU Patients: NIH and Neuro Check every 4 Status: Active hours and PRN Freq: [id number] Protocol: Activity Type Activity Date Activity User E-sign Co-sign Detail Recorded Client Recorded Date Recorded By Document 10/07/23 09:30 JS Desktop 10/07/23 09:35 JS 10/07/23 09:30 NIH Stroke Scale [NIHSS] A score of 0 is normal or asymptomatic . Total possible score is 42. Inpatient: RN or Physician to activate a stroke alert for onset of new stroke symptoms or with NIHSS increase >/= 3 points. Following change in neurological status, NIHSS will be performed per physician order or more frequently PRN. -1a. Level of Consciousness Alert; keenly responsive -1b. LOC Questions Answers BOTH questions correctly. -1c. LOC Commands Performs both tasks correctly . -2. Best Gaze Normal -3. Visual Partial hemianopia -4. Facial Palsy Partial paralysis ( total or near- total paralysis of lower face) -5a. Left Arm No drift; arm holds 90 (or 45 ) degrees for full 10 seconds -5b. Right Arm No movement -6a. Left Leg No drift; leg holds 30-degree position for full 5 seconds -6b. Right Leg No movement -7. Limb Ataxia Present in 2 limbs -8. Sensory Mild-to- moderate sensory loss; -9. Best Language Mild-to- moderate aphasia; -10. Dysarthria Normal -11. Extinction and Inattention Profound jhonatan- inattention or extinction to more than one modality; -Total 17 Query Text:A score of 0 is normal or asymptomatic. Total possible score is 42 . ED: Notify Physician for NIHSS increase by > / = 3 points. Inpatient: RN or Physician to activate a stroke alert for NIHSS increase of > / = 3 points. Coma Scale [Assess] -Eye Opening Spontaneous -Motor Obeys Commands -Verbal Oriented [Total] -Coma Scale Total 15 NIHSS: Ischemic Stroke/TIA Start: 10/06/23 23:09 Text: For ICU Patients: NIH sroke scale at Status: Complete presentation and every 2 hours or with change in RN caregiver Freq: [id number] Protocol: Activity Type Activity Date Activity User E-sign Co-sign Detail Recorded Client Recorded Date Recorded By Document 10/07/23 00:00 [employer] 10/07/23 00:19 spigit 10/07/23 00:00 NIH Stroke Scale [NIHSS] A score of 0 is normal or asymptomatic . Total possible score is 42. Inpatient: RN or Physician to activate a stroke alert for onset of new stroke symptoms or with NIHSS increase >/= 3 points. Following change in neurological status, NIHSS will be performed per physician order or more frequently PRN. -1a. Level of Consciousness Alert; keenly responsive -1b. LOC Questions Answers BOTH questions correctly. -1c. LOC Commands Performs both tasks correctly . -2. Best Gaze Normal -3. Visual No visual loss -4. Facial Palsy Partial paralysis ( total or near- total paralysis of lower face) -5a. Left Arm No drift; arm holds 90 (or 45 ) degrees for full 10 seconds -5b. Right Arm No movement -6a. Left Leg No drift; leg holds 30-degree position for full 5 seconds -6b. Right Leg No movement -7. Limb Ataxia Absent -8. Sensory Severe to total sensory loss; -9. Best Language Mild-to- moderate aphasia; -10. Dysarthria Normal -11. Extinction and Inattention Visual, tactile , auditory, spatial, or personal inattention -Total 14 Query Text:A score of 0 is normal or asymptomatic. Total possible score is 42 . ED: Notify Physician for NIHSS increase by > / = 3 points. Inpatient: RN or Physician to activate a stroke alert for NIHSS increase of > / = 3 points. Coma Scale [Assess] -Eye Opening Spontaneous -Motor Obeys Commands -Verbal Oriented [Total] -Coma Scale Total 15 Lab / Micro Data 10/06/23 18:42 10/06/23 18:42 Labs: Laboratory Results - last 24 hr 10/06/23 18:38: POC Glucose 92 10/06/23 18:42: WBC 7.2, RBC 4.49, Hgb 13.5, Hct 39.2, MCV 87.3, MCH 30.1, MCHC 34.4, RDW Std Deviation 37.5, RDW Coeff of Jo 11.8, Plt Count 270, MPV 10.9, Immature Gran % (Auto) 0.100, Neut % (Auto) 51.0, Lymph % (Auto) 34.4, [place] % (Auto) 9.2, Eos % (Auto) 3.6, Baso % (Auto) 1.7 H, Absolute Neuts (auto) 3.7, Absolute Lymphs (auto) 2.47, Nucleated RBC % 0, PT 14.3, INR 1.1, APTT 29.6, Sodium 138, Potassium 3.8, Chloride 112 H, Carbon Dioxide 21.0, Anion Gap 5, BUN 15, Creatinine 0.72, Estim Creat Clear Calc 118.70, Est GFR (MDRD) Af Amer 122, Est GFR (MDRD) Non-Af 101, BUN/Creatinine Ratio 20.8 H, Glucose 94, Hemoglobin A1c 4.9, Calcium 8.6, Troponin I High Sens 3, Urine Opiates Screen NEGATIVE, Urine Methadone Screen NEGATIVE, Ur Barbiturates Screen NEGATIVE, Ur Phencyclidine Scrn NEGATIVE, Ur Amphetamines Screen NEGATIVE, MDMA (Ecstasy) Screen NEGATIVE, U Benzodiazepines Scrn NEGATIVE, Urine Cocaine Screen NEGATIVE, U Cannabinoids Screen NEGATIVE, Ur Drug Screen Comment 10/07/23 00:53: Triglycerides 64, Cholesterol 158, LDL Cholesterol 103, VLDL Cholesterol 13, HDL Cholesterol 42, Ethyl Alcohol 3.0 Imaging Radiology Impression Brain CT 10/06/23 18:41 IMPRESSION: Negative Brain CT without contrast. Electronically Signed: Tu Anglin MD at 18:55 EDT , ADDENDUM: 10/06/23 1904 IMPRESSION: Negative Brain CT without contrast. N.B. : The above Results were Read Back by Tu Anglin MD to Stef William MD, and understanding confirmed on 10/06/2023 18:56:57 (ET). Electronically Signed: Tu Anglin MD at 18:55 EDT , Head/Neck CTA 10/06/23 18:42 IMPRESSION: Normal CTA Head and neck with contrast. Electronically Signed: Tu Anglin MD at 19:43 EDT , ADDENDUM: 10/06/23 1950 IMPRESSION: Normal CTA Head and neck with contrast. N.B. : The above Results were Read Back by Tu Anglin MD to Jairo Mari MD, and understanding confirmed on 10/06/2023 19:43:30 (ET). Electronically Signed: Tu Anglin MD at 19:43 EDT , Chest X-Ray 10/06/23 19:35 IMPRESSION: Normal x-ray examination of the chest. Electronically Signed: Tu Anglin MD at 20:19 EDT , Echocardiogram 10/06/23 21:49 Interpretation Summary The study was technically difficult. The left ventricular ejection fraction is 55 %. Bubble contrast study is positive for PFO. Ordering Physician: Anthony Antoine Referring Physician: Zohreh Barnes Performed By: Ramona Herbert, URSULACS, RVT Brain MRI 10/07/23 09:30 IMPRESSION: Normal unenhanced MRI of the brain. Electronically Signed: Shant Moyer MD at 11:43 EDT Reading Location ID and State: [address] [place] [id number] , Service support , Active Medications Active Medications Active Medications: Current Medications Generic Name Dose Route Start Last Admin Trade Name Freq PRN Reason Stop Dose Admin Albuterol Sulfate 2.5 mg 10/06/23 23:09 Albuterol 2.5 Mg/3 Ml Vial.Neb. INHALATION Q4H PRN PRN Sob &/Or Wheezing Aspirin 81 mg 10/07/23 08:00 10/07/23 09:35 Aspirin 81 Mg Tab.Chew PO 81 mg BREAKFAST AYESHA Administration Atorvastatin Calcium 80 mg 10/06/23 23:09 10/07/23 00:42 Atorvastatin Calcium 80 Mg Tablet PO 80 mg QHS AYESHA Administration Buspirone HCl 15 mg 10/07/23 08:00 10/07/23 09:35 Buspirone 15 Mg Tablet PO 15 mg 0800,1400,2200 AYESHA Administration Chlorzoxazone 500 mg 10/07/23 14:00 Chlorzoxazone 500 Mg Tablet PO TID AYESHA Cholecalciferol 50 mcg 10/07/23 10:00 10/07/23 09:36 Cholecalciferol (Vit D3) 25 Mcg Tablet (1,000 Units) PO 50 mcg DAILY AYESHA Administration Doxazosin Mesylate 1 mg 10/06/23 23:09 10/07/23 00:42 Doxazosin 1 Mg Tablet PO 1 mg QHS AYESHA Administration Gabapentin 600 mg 10/07/23 08:00 10/07/23 09:35 Gabapentin 600 Mg Tablet PO 600 mg 0800,1400,2200 AYESHA Administration Hydroxyzine Pamoate 50 mg 10/06/23 23:09 Hydroxyzine Yasmeen 25 Mg Capsule PO QHS PRN anxiety Sodium Chloride 250 mls @ 15 mls/hr 10/06/23 23:56 IV .[id number] PRN Additional IVPB Infusion Sodium Chloride 250 mls @ 15 mls/hr 10/06/23 23:56 IV .[id number] PRN Saline Flush Ibuprofen 600 mg 10/06/23 23:09 10/07/23 06:24 Ibuprofen 600 Mg Tablet PO 600 mg Q8H PRN PRN Administration fever or pain 1-10 Lamotrigine 100 mg 10/07/23 22:00 Lamotrigine 100 Mg Tablet PO 2200 AYESHA Lidocaine 1 patch 10/07/23 10:00 Lidocaine 5% Patch TOPICAL DAILY AYESHA Pantoprazole Sodium 40 mg 10/06/23 23:09 10/07/23 00:42 Pantoprazole Sodium 40 Mg Tablet PO 40 mg QHS AYESHA Administration Polyethylene Glycol 17 gm 10/06/23 23:09 Polyethylene Glycol 3350 17 Gm Packet PO DAILY PRN PRN Constipation Potassium Chloride 10 meq 10/07/23 08:00 10/07/23 09:35 Potassium Chloride Oral Tablet 10 Meq PO 10 meq DAILYCM AYESHA Administration Sodium Chloride 10 - 40 ml 10/06/23 23:56 0.9% Saline Lock 10 Ml Syringe IV UD PRN SALINE FLUSH
[2023-10-07] MEDS: Lidocaine 5% Patch 1 PATCH TOPICAL (14:36)
[2023-10-07 14:52] VITALS: BMI 25.2
[2023-10-07 15:45] VITALS: BP 104/68; PULSE 90; RESP 16; TEMP 37.3; O2SAT 97
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
[2023-10-07 20:30] VITALS: BP 114/69; PULSE 77; RESP 16; TEMP 36.8; O2SAT 97
[2023-10-07] MEDS: lamoTRIgine 100 MG Tablet PO (21:43)
[2023-10-08] MEDS: Ibuprofen 600 MG Tablet PO (00:12)
[2023-10-08 02:30] VITALS: BP 88/56; PULSE 68; RESP 16; TEMP 36.6; O2SAT 100
[2023-10-08 04:44] VITALS: BMI 25.2
[2023-10-08] MEDS: Cholecalciferol (VIT D3) 25 MCG TABLET (1,000 UNITS) 50 MCG PO (07:57)
[2023-10-08] MEDS: busPIRone 15 MG TABLET PO ×2 (07:57→14:16)
[2023-10-08] MEDS: Potassium Chloride Oral Tablet 10 MEQ PO (07:57)
[2023-10-08] MEDS: Gabapentin 600 MG Tablet PO ×2 (08:03→14:23)
[2023-10-08] MEDS: Lidocaine 5% Patch 1 PATCH TOPICAL (08:03)
[2023-10-08 08:30] VITALS: BP 113/71; PULSE 90; RESP 18; TEMP 36.6; O2SAT 100
[2023-10-08] MEDS: LURASIDONE HCL 60 MG TABLET PO (12:50)
--- NOTE | 2023-10-08 13:19 | NURSING ---
3992 patient expressed concern about room camera. stated she was not aware of camera. charge nurse aware and will notify computer programming supervisor. Alissa Abdul RN
[2023-10-08 14:30] VITALS: BP 110/71; PULSE 100; RESP 18; TEMP 36.6; O2SAT 98
--- NOTE | 2023-10-08 14:32 | NURSING ---
1425 provided patient with Patient advocate card and to contact 10/09/2023. Alissa Abdul RN
--- NOTE | 2023-10-08 15:00 | PCM.DC ---
Discharge Instructions Diet Discharge Diet: No restrictions Activity Discharge Activity: Return to Normal Activity Weight Bearing Status: Full weight bearing Follow Up Care Test Results: Test results from this visit will be discussed in further detail at your follow-up appointment, if applicable. Discharge Plan Admission Admit Date/Time: 10/06/23 21:44 Primary Reason for Your Visit: Conversion reaction Attending Provider: Carlos Andrews Primary Care Provider: Zohreh Barnes Consulting Providers: Félix Osorio; Jace Man; Nela Jon; Jeannette Nuñez; Payton Hunter; Deven Orlando; Mansi Rice; Prem Boswell; Jian Silveira; [place] Noe; Jacinto Salcedo; Katiuska Anderson; Alexandra Rodrigeuz; Ramiro Hernández; Mil Romero; Francisca Heck; Manpreet Mejia; Tg Osborne; Berkley Bill; Anthony Antoine Discharge Orders/Prescriptions Prescriptions: New cholecalciferol (vitamin D3) [Vitamin D3] 25 mcg (1,000 unit) capsule 25 mcg PO DAILY Qty: 30 0RF Continued cholecalciferol (vitamin D3) 25 mcg (1,000 unit) capsule 2 cap PO DAILY buspirone 15 mg tablet 15 mg PO TID lurasidone [Latuda] 60 mg tablet 60 mg PO DAILY Rx Instructions: must administer with food (at least 350 calories) lamotrigine [Lamictal] 100 mg tablet 100 mg PO DAILY prazosin [Minipress] 1 mg capsule 1 mg PO QHS hydroxyzine HCl 50 mg tablet 50 mg PO QHS PRN (Reason: anxiety) gabapentin 600 mg tablet 600 mg PO TID lidocaine HCl-menthol 5-1 % adhesive patch,medicated 1 patch topical Q12H Patient Comments: right leg,back, and shoulder omeprazole 40 mg capsule,delayed release(DR/EC) 40 mg PO QHS Qty: 90 1RF polyethylene glycol 3350 17 gram powder in packet 17 g PO PRN PRN (Reason: Constipation) Qty: 30 2RF prochlorperazine maleate [Compazine] 10 mg tablet 10 mg PO PRN PRN (Reason: nausea ) Qty: 30 1RF albuterol sulfate 90 mcg/actuation HFA aerosol inhaler 2 puff INHALATION DAILY PRN PRN (Reason: Sob &/Or Wheezing) Qty: 8.5 2RF chlorzoxazone 500 mg tablet 500 mg PO TID Qty: 60 0RF (DME) compress.stocking,knee,reg,lrg Misc See Rx Instructions .ROUTE .MEDSUPPLY Qty: 2 0RF Rx Instructions: As directed ibuprofen 600 mg tablet 600 mg PO Q8H PRN (Reason: fever or pain) Rx Instructions: do not take with naproxen or other NSAIDs potassium chloride 10 mEq capsule, extended release 10 meq PO DAILY Qty: 30 1RF (DME) comp.stocking,thigh,short,smal Misc See Rx Instructions .Route Qty: 12 0RF Rx Instructions: As directed Referrals / Follow Up: Zohreh Barnes SENIOR NUCLEAR MEDICINE TECHNOLOGIST-C [Primary Care Provider] - Within 2 Weeks Disposition Disposition (needs filled in before D/C Order can be placed): Home, Self Care
[2023-10-08 15:05] VITALS: BP 110/71; PULSE 100; RESP 18; TEMP 36.6; O2SAT 98
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
--- NOTE | 2023-10-08 15:24 | NURSING ---
1450 patient requested discharge orders or will sign out AMA. Dr kate Abdul RN
--- NOTE | 2023-10-08 15:25 | NURSING ---
1500 Dr Andrews called this nurse and will put in discharge orders. patient aware and will call ride. Alissa Abdul RN
== END 2023-10-08 15:47 | disposition home or self-care (01) | DRG 756 ==
LOC: ED 21:54 → PCU 22:03
PROVIDERS: Admitting Provider Internal Medicine; Emergency Provider Emergency Medicine; PCP Nurse Practitioner; Visit Provider Internal Medicine
DX: F44.4 Conversion disorder with motor symptom or deficit (principal); Q21.12 Patent foramen ovale; F31.9 Bipolar disorder, unspecified; K21.9 Gastro-esophageal reflux disease without esophagitis; F17.210 Nicotine dependence, cigarettes, uncomplicated; Z59.01 Sheltered homelessness; Z65.8 Other specified problems related to psychosocial circumstances; Z79.899 Other long term (current) drug therapy
CPT/HCPCS: 70450; 70496; 70498; 70551; 71045; 80048; 80061; 80307; 80320; 82962; 83036; 84484; 85025; 85610; 85730; 93005; 93306; 97163; 97166; 97530; 97535; 99285; J7030; Q9957; Q9967; A4216; C8929; G0480